=== PATIENT | male | born 1940 | race Caucasian/White ===

== ENCOUNTER 2024-08-15 12:54 | Outpatient (OUT) | payer MEDICARE, OTHER, SELFPAY ==
--- NOTE | 2024-08-14 08:22 | VEINCLINIC_ITS ---
Vital Signs 3 08/15/24 13:14 Height 5 ft 10 in Weight 83.915 kg BMI 26.5 BP 125/64 BP Location Left Brachial BP Position Sitting BP Cuff Size Adult BP Source Automatic Cuff Respiration 16 Pulse 65 Pulse Oximetry (%) 97 Oxygen Delivery Method Room Air Comment The patient's blood pressure is elevated. Varicose Veins Patient is a 83 year old male in this day with a 2 cm non-healing wound medial left lower leg for 6 weeks after injury and presents with swelling and redness in left leg for approximately 3 months. Patient has not been seen by wound care at this time. 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 Unknown if there is family history of varicose vein disease. Patient complains of bilateral leg swelling and pain/numbness left > right for 3 months. Pain is rated a 1 on a scale of 1-10. Tung Martin MD personally performed the services described in this documentation, as scribed by Yaya Melgoza RN in my presence and it is both accurate and complete. Yaya Martin RN, am scribing for, and in the presence of, Dr. Tung Azul and in the presence of the patient. . calf: left aching, intermittent and tender 1 2-3 months Worsened in recent months: Yes walking elevating extremities Reports erythema, limb pain, leg edema and other (numbness/tingling) History of lower extremity trauma: Yes (injury to left lower leg 2-3 months ago) Superficial thrombophlebitis: No Family history of varicose veins: unknown Has patient had previous lower extremity venous surgery: No Patient has previously received the following treatment(s) for lower extremity varicose veins: Reports none Does patient have a history of : not applicable Does patient intend to have future pregnancies: not applicable Has patient had lower extremity venous scan with relux testing: Yes Support hose used: Yes (20 yrs ago) Problems walking or doing physical activity: Yes How does it affect you: Difficult doing daily activities, standing for long periods of time Do you walk much: No Do you stand much: No Medication compliance: fair Review of Systems 2 ROS0 Narrative Tung Martin MD personally performed the services described in this documentation, as scribed by Yaya Melgoza RN in my presence and it is both accurate and complete. I, Yaya Melgoza RN, am scribing for, and in the presence of, Dr. Tung Azul and in the presence of the patient. 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 ?I83.813 - Varicose veins of bilateral lower extremities with pain (ICD-10) Heart disease ?I51.9 - Heart disease, unspecified (ICD-10) Carpal tunnel syndrome ?G56.00 - Carpal tunnel syndrome, unspecified upper limb (ICD-10) Surgical History (Updated 08/15/24 @ 13:22 by Yaya Melgoza) History of carpal tunnel surgery ?Z98.890 - Other specified postprocedural states (ICD-10) Family History (Updated 08/15/24 @ 13:25 by Yaya Melgoza) Father Family history of myocardial infarction Brother Family history of myocardial infarction Social History (Updated 08/15/24 @ 13:25 by Yaya Melgoza) Within the past year, how often did you have a drink containing alcohol: never Score interpretation: A score less than 4 is consistent with normal alcohol consumption. Smoking status: Never smoker Meds Home Medications and Allergies Home Medications ?Medication ?Instructions ?Recorded ?Confirmed ?Type apixaban 5 mg PO BID 08/15/24 08/15/24 History atorvastatin 20 mg tablet (Lipitor) 20 mg PO DAILY 08/15/24 08/15/24 History blood pressure medication 08/15/24 History flecainide 50 mg tablet 50 mg PO Q12H 08/15/24 08/15/24 History Allergies Allergy/AdvReac Type Severity Reaction Status Date / Time No Known Drug Allergies Allergy Verified 08/15/24 13:28 Exam Narrative Exam Narrative: ITung MD personally performed the services described in this documentation, as scribed by Yaya Melgoza RN in my presence and it is both accurate and complete. Yaya Martin RN, am scribing for, and in the presence of, Dr. Tung Azul and in the presence of the patient. Constitutional Documenting provider has reviewed patient's vital signs: yes Common normals: oriented x3 Nutritional appearance: overweight Lymph Lymphatic: no lymphedema noted Cardio Peripheral pulses: posterior tibial pulses present and dorsalis pedis pulses present Extremity Common normals: normal capillary refill General: calf tenderness and edema Right lower extremity: lower leg Right lower leg: inspection and palpation Left lower extremity: lower leg (wound mid/medial lower leg ) Left lower leg: inspection and palpation Extremity image (front): 2 1. non-healing wound Neuro Common normals: oriented x3 Results Additional Findings Additional findings: Bilateral leg reflux u/s reveals bilateral lower extremity venous insufficiency with dilation of bilateral GSV and left leg perforators. Multiple incompetent varicose veins noted. Tung Martin MD personally performed the services described in this documentation, as scribed by Yaya Melgoza RN in my presence and it is both accurate and complete. Yaya Martin RN, am scribing for, and in the presence of, Dr. Tung Azul and in the presence of the patient. 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 Azul created plan for treatment which consists of EVLT bilateral GSV, EVLT left leg perforators, Varithena/microfoam bilateral, continued use of compression stockings, rest/elevation, and increased physical activity. Patient to return for EVLT of left GSV on 08/26/24. Tung Martin MD personally performed the services described in this documentation, as scribed by Yaya Melgoza RN in my presence and it is both accurate and complete. Yaya Martin RN, am scribing for, and in the presence of, Dr. Tung Azul and in the presence of the patient.
--- NOTE | 2024-08-14 08:26 | W.VEIN ---
Discharge Plan Discharge Disposition: Home, Self-Care Print Language: Malawian
--- NOTE | 2024-08-14 08:33 | W.VEIN ---
Discharge Plan Discharge Disposition: Home, Self-Care Outpatient Diagnostics: VC Endovenous Ablation 1VeinLT (Routine) Timeframe: 1 Month Facility: [facility] - Location: Vein Center Ordered By: Tung Azul Follow Up Appointments: 08/26/24 Plan of Treatment: EVLT of left GSV EVLT Tumescent Anesthesia: 500 mL 0.9% NS with 20 mL 1% Lidocaine and 10 mL 8.4% NAHCO3 Buffered Local Anesthesia: 10 mL of 1% Lidocaine Buffered Patient Instructions: Endovenous Ablation (GEN) Print Language: Afghan Discharge Date/Time: 08/15/24 15:33
--- NOTE | 2024-08-15 12:56 | VEIN_ITS ---
Patient Name: JOSE ROCHA MR#: [id number] : 1940 Exam Date: 08/15/2024 Ordering Doctor: DR LUPE PULIDO M.D. RADIOLOGY REPORT PROCEDURE: VC FACILITY EST COMPREHENSIVE [facility]IN [facility] - OFFICE VISIT INITIAL COMPARISON: None. PROGRESS NOTES: [age] year old male who presents with a 3 month history of bilateral leg swelling and redness, with a 6 week history of nonhealing ulcer lateral lower left leg. The patient's left leg symptoms are worse than the right. There has been a progression of symptoms over time. This increases with prolonged leg dependency. The patient describes an improvement with rest and elevation. The patient denies any signs and symptoms to suggest arterial ischemia. The patient describes a family history of heart disease. The patient has drinking and smoking history of : None. Patient has a past medical history significant for : Heart disease, pain due to varicose veins. The patient denies a history of deep venous thrombus or pulmonary embolus. See separate history and physical for medication list. No prior treatment for varicose or spider veins. Prior treatment consisting of use of compression stockings. After review of nurse notes, history and physical exam I discussed at length the pathophysiology of venous hypertension and possible treatments, therapies and strategies available. We discussed at length the importance of elevating the lower extremities above the level of the heart, increased physical activity and compression stocking use. Ultrasound venous reflux study performed today was discussed at length with the patient. The report demonstrates abnormally dilated incompetent right great saphenous vein, left great saphenous vein, and lower left leg incompetent reverser veins adjacent nonhealing ulcer. Associated branch saphenous varicosities bilaterally. PHYSICAL EXAM: The right leg demonstrates several varicosities, scattered spider veins, no ulceration, mild edema, moderate skin discoloration. The left leg demonstrates several varicosities, scattered spider veins, lateral lower leg ulceration, mild edema, moderate-marked skin discoloration. Both thighs, legs and feet were symmetrically warm to the touch. Good posterior tibial and dorsalis pedis pulses were present bilaterally. VEIN/VC Facility EST Comprehensive IMPRESSION: 1. Bilateral lower extremity venous insufficiency 2. Bilateral lower extremity varicose veins 3. Mild bilateral lower extremity subcutaneous edema 4. No flow significant arterial disease 5. CEAP: C6, EP, AP, TN PLAN: 1. Continued use of compression stockings 2. Elevated legs and increased physical activity symptomatic relief 3. Endovenous laser ablation of left great saphenous vein, right great saphenous vein, lower left leg reverser veins. 4. Microfoam chemical ablation of incompetent branch saphenous varicosities bilaterally. Nurse notes, history and physical were reviewed and confirmed, see attached forms. The nurse was present throughout the physical exam and consultation Dictated by: Tung Azul M.D. on 08/15/2024 at 15:09 Approved by: Tung Azul M.D. on 08/15/2024 at 15:16
--- NOTE | 2024-08-15 12:56 | VEIN_ITS ---
Patient Name: JOSE ROCHA MR#: [id number] : 1940 Exam Date: 08/15/2024 Ordering Doctor: DR LUPE PULIDO M.D. RADIOLOGY REPORT PROCEDURE: VC EXT VENOUS REFLUX PATRICIA LMTD COMPARISON: None. INDICATIONS: I83.813 Bilateral painful varicose veins TECHNIQUE: Duplex imaging of the lower extremity to assess the deep and superficial venous system for the presence of deep or superficial venous incompetence and to document the location and severity of disease. The study includes evaluation of the great saphenous vein (GSV), anterior accessory saphenous vein (AASV) and small saphenous vein (SSV). Patient scanned in reverse Trendelenburg and standing. FINDINGS: RIGHT LOWER EXTREMITY: Saphenofemoral Junction Reflux: Yes 5.8mm 1.4 sec GSV: Diam (mm) Reflux/ Time (sec) Proximal Thigh 5.9 Yes 1.7 Mid Thigh 3.8 Yes 0.7 Distal Thigh 3.4 Yes 1.0 Prox Calf 3.4 No Mid Calf 3.8 Yes 0.6 Saphenopopliteal Junction Reflux: 2.9mm Yes 0.9 SSV: Proximal Calf 2.7 Yes 0.9 Mid Calf 3.3 No AASV: Not present Proximal Thigh Mid Thigh Distal Thigh Thrombi: No acute or chronic thrombus visualized Compressibility: Normal Flow: Normal Preforator: Dist/med calf 1.7mm with 1.8s reflux. Tech Note: Incompetent GSV. Patent varicose vein dist/med calf 3.5mm with 1.0s reflux. Patent varicose vein prox/med calf 3.5mm with 0.6s reflux. 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 Tech Note: Incompetent GSV. Patent varicose vein prox/med calf 5.1mm with 1.1s reflux. Patent varicose vein mid/med calf 2.8mm with 0.9s reflux. CONCLUSION: 1. Abnormally dilated and incompetent right and left great saphenous veins. 2. 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 3. Incompetent branch saphenous varicosities bilaterally. Dictated by: Tung Azul M.D. on 08/15/2024 at 14:41 Approved by: Tung Azul M.D. on 08/15/2024 at 15:09
[2024-08-15 13:14] VITALS: BP 125/64; PULSE 65; O2SAT 97; BMI 26.5
== END 2024-08-15 15:33 | disposition home or self-care (01) ==
LOC: VC 12:55
PROVIDERS: Family Provider Family Medicine; PCP Radiology Diagnostic Radiology; Visit Provider Radiology Diagnostic Radiology
DX: I83.813 Varicose veins of bilateral lower extremities with pain (principal)
CPT/HCPCS: 93970; G0463

== ENCOUNTER 2024-08-26 09:56 | Outpatient (OUT) | payer MEDICARE, OTHER, SELFPAY ==
--- NOTE | 2024-08-23 11:02 | VEINCLINIC_ITS ---
Vital Signs 08/26/24 10:10 BP 122/64 BP Location Left Brachial BP Position Sitting BP Cuff Size Adult BP Source Manual Cuff Respiration 18 Pulse 63 Pulse Source Monitor Pulse Oximetry (%) 98 Oxygen Delivery Method Room Air Comment The patient's blood pressure is elevated. Varicose Veins Patient in this day for EVLT of left GSV. Tung Martin MD personally performed the services described in this documentation, as scribed by Ani Diaz RN in my presence and it is both accurate and complete. Ani Martin RN, am scribing for, and in the presence of, Dr. Tung Azul and in the presence of the patient. calf: left aching, intermittent and tender 1 2-3 months Worsened in recent months: Yes walking elevating extremities Reports erythema, limb pain, leg edema and other (numbness/tingling) History of lower extremity trauma: Yes (injury to left lower leg 2-3 months ago) Superficial thrombophlebitis: No Family history of varicose veins: unknown Has patient had previous lower extremity venous surgery: No Patient has previously received the following treatment(s) for lower extremity varicose veins: Reports none Does patient have a history of : not applicable Does patient intend to have future pregnancies: not applicable Has patient had lower extremity venous scan with relux testing: Yes Support hose used: Yes (20 yrs ago) Problems walking or doing physical activity: Yes How does it affect you: Difficult doing daily activities, standing for long periods of time Do you walk much: No Do you stand much: No Medication compliance: fair Review of Systems ROS Narrative Tung Martin MD personally performed the services described in this documentation, as scribed by Ani Diaz RN in my presence and it is both accurate and complete. Ani Martin RN, am scribing for, and in the presence of, Dr. Tung Azul and in the presence of the patient. Status of ROS 10 or more systems reviewed and unremark able except as noted in history and below Cardiovascular Reports: edema Integumentary/Breast Reports: redness, skin pain, skin tenderness, skin swelling, non-healing lesion (mid medial left lower leg) and changes in skin color Neurological Reports: numbness in extremities and weakness in extremities Hematologic/Lymphatic Reports: easy bruising and easy bleeding 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 ?I83.813 - Varicose veins of bilateral lower extremities with pain (ICD-10) Heart disease ?I51.9 - Heart disease, unspecified (ICD-10) Carpal tunnel syndrome ?G56.00 - Carpal tunnel syndrome, unspecified upper limb (ICD-10) Surgical History (Updated 08/15/24 @ 13:22 by Yaya Melgoza) History of carpal tunnel surgery ?Z98.890 - Other specified postprocedural states (ICD-10) Family History (Updated 08/15/24 @ 13:25 by Yaya Melgoza) Father Family history of myocardial infarction Brother Family history of myocardial infarction Social History (Updated 08/15/24 @ 13:25 by Yaya Melgoza) Within the past year, how often did you have a drink containing alcohol: never Score interpretation: A score less than 4 is consistent with normal alcohol consumption. Smoking status: Never smoker Meds Home Medications and Allergies Home Medications ?Medication ?Instructions ?Recorded ?Confirmed ?Type apixaban 5 mg PO BID 08/15/24 08/15/24 History atorvastatin 20 mg tablet (Lipitor) 20 mg PO DAILY 08/15/24 08/15/24 History blood pressure medication 08/15/24 History flecainide 50 mg tablet 50 mg PO Q12H 08/15/24 08/15/24 History Allergies Allergy/AdvReac Type Severity Reaction Status Date / Time No Known Drug Allergies Allergy Verified 08/15/24 13:28 Exam Narrative Exam Narrative: ITung MD personally performed the services described in this documentation, as scribed by Ani Diaz RN in my presence and it is both accurate and complete. IAni RN, am scribing for, and in the presence of, Dr. Tung Azul and in the presence of the patient. Constitutional Documenting provider has reviewed patient's vital signs: yes Common normals: oriented x3 Nutritional appearance: overweight Lymph Lymphatic: no lymphedema noted Cardio Peripheral pulses: posterior tibial pulses present and dorsalis pedis pulses present Extremity Common normals: normal capillary refill General: calf tenderness and edema Right lower extremity: lower leg Right lower leg: inspection and palpation Left lower extremity: lower leg (wound mid/medial lower leg ) Left lower leg: inspection and palpation Neuro Common normals: oriented x3 Assessment and Plan Assessment and Plan (1) 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 The patient verbalizes understanding and states they will comply.? Patient was given post-pr ocedure instructions. Patient was discharged in good condition.? Scheduled to undergo follow-up evaluation on? 09/03/24. ITung MD personally performed the services described in this documentation, as scribed by Ani Diaz RN in my presence and it is both accurate and complete. IAni RN, am scribing for, and in the presence of, Dr. Tung Azul and in the presence of the patient. Procedures Procedure Instructions Procedures Plan of care: Risks and benefits of the procedure were discussed at length and informed written consent was obtained.? Time-out completed for verification of correct patient, procedure and site.? Staff present during time-out: Ani Diaz RN,? Tung Azul MD, Ailyn Mancia [facility]. Time Out Time___1039____ Patient prepped and procedure performed in usual sterile fashion. Risk of injury related to use of Diode laser and/or laser devices? __AG___ ? Serial number of laser used :? [id number] Control panel self test performed, electrical cords in good condition, floor is dry, basin of water available, fire extinguisher in close proximity_AG__ Polycarbonate goggles available and Laser warning signs outside of doors___AG___ Eye protection provided to patient and staff in room_AG___ Use of laser retardant drapes and dull blackened instruments as directed__AG___ Use of nonflammable prep solutions and use of saline soaked sponges to protect tissues as indicated _AG___ Length ____70____ cm Laser operated by ____Dr. Azul Physician verbal confirmation laser locked in place__AG__ Laser start time (date and time) _08/26/24@1053 Laser stop time(date and time) __08/26/24@1103 Buck _8.0___ Average laser use ____3666___Joules Average laser use____458____seconds Pulse continuous ___AG_? Pulse intermittent ___ Amount of Tumescent used ___300___ Evaluated patient for signs and symptoms of electrical injury __AG___ ? Skin clear at insertion site __AG___ Patient tolerated procedure well.? Left leg Coban dressing applied to access site.? Applied Left thigh high leg compression stocking. Will return on 09/03/24 for Left leg limited venous ultrasound and exam. ITung MD personally performed the services described in this documentation, as scribed by Ani Diaz RN in my presence and it is both accurate and complete. I, Ani Diaz RN, am scribing for, and in the presence of, Dr. Tung Azul and in the presence of the patient.
--- NOTE | 2024-08-23 11:04 | W.VEIN ---
Discharge Plan Discharge Disposition: Home, Self-Care Outpatient Diagnostics: VC Facility EST LMTD (Routine) Timeframe: 2 Weeks Facility: [facility] - Location: Vein Center Ordered By: Tung Azul VC EXT Venous LT Limited (Routine) Timeframe: 2 Weeks Facility: [facility] - Location: Vein Center Ordered By: Tung Azul Follow Up Appointments: 09/03/24 Plan of Treatment: u/s follow up following evlt of left GSV on 08/26/24 Patient Instructions: Endovenous Ablation (DC) Print Language: Surinamese Discharge Date/Time: 08/26/24 11:23
--- NOTE | 2024-08-26 09:58 | VEIN_ITS ---
[address] [address] Patient Name: JOSE ROCHA MRN: [id number] date: 1940 Sex: M Assigned Patient Location: Current Patient Location: Accession/Order Number: [id number] Exam Date: 08/26/2024 10:03 Report Date: 08/26/2024 15:57 At the request of: DEBORAH MADRID Procedure: VC Endovenous Ablation 1VeinLT EXAMINATION: VC Endovenous Ablation 1VeinLT HISTORY: I83.813 - Varicose veins of bilateral lower extremities w... The risks and benefits of the procedure had been previously discussed, and were rediscussed at length. Informed written consent was obtained. Ani Diaz RN and Ailyn Newman RDMS assisted. Time out procedure was performed. The left lower extremity was prepared and draped in the usual sterile fashion to allow knee flexion in the sterile field. Duplex ultrasound probe was draped in a sterile cover, sterile transmission gel was used. Venous mapping was performed with the areas of dilation and large tributaries marked. The total length was 70 cm from the entry 3 cm above the ankle to 3 cm below the Saphenofemoral junction. The diameter of the left great saphenous vein ranged from 5.6 mm. A 30 gauge needle and 1% buffered lidocaine was used to anesthetize the entry site. A 4 mm incision was made with a scalpel and the saphenous vein was entered percutaneously under direct ultrasound guidance with a micropuncture set, a single stick was successful in gaining access. A micro-guide wire was inserted and the needle removed. A micro-set including a dilator was inserted over the microwire and the needle and dilator were removed. A guide wire was inserted through the micro-set and guided through the saphenous vein to the saphenofemoral junction. The dilator was removed and an introducer sheath was inserted over the wire until the end of the sheath entered the saphenofemoral junction. The dilator and wire were removed and the 600 micron fiber was introduced and placed and positioned so that it extended beyond the sheath and was 3 cm distal to the saphenofemoral or saphenopopliteal junction. Final position of the fiber was determined by ultrasound guidance and duplex imaging. Tumescent anesthetic was delivered by ultrasound guidance. 300 cc of fluid was delivered along the entire course of the saphenous vein. The solution consisted of 1000 cc of normal saline with 40 mL of 1% lidocaine and 20 mL of sodium bicarbonate. A final positioning check was made. The energy source was turned on by means of the foot pedal and the fiber and sheath were withdrawn. The total number of Joules delivered was 3666. The laser was active for 458 seconds under continuous pulse, average laser use of 8 J. Laser start time: 10:53 AM Laser stop time: 11:03 AM Date: 08/26/2024. A duplex ultrasound revealed compressibility and flow at the saphenofemoral junction immediately after the procedure. Hemostasis at the access site was achieved. The skin incision of the saphenous vein was closed with a 4 x 4. A compression stocking was applied. Postop instructions were given. A follow up appointment was recommended and scheduled. The patient tolerated the procedure well. Electronically authenticated by: DEBORAH MADRID Date: 08/26/2024 15:57
[2024-08-26 10:10] VITALS: BP 122/64; PULSE 63; O2SAT 98
[2024-08-26] MEDS: LIDOCAINE HCL 1% 100 MG/10 ML MDV INJ (10:37)
[2024-08-26] MEDS: 0.9 % SODIUM CHLORIDE 500 ML, LIDOCAINE HCL 20 ML, SODIUM BICARBONATE 10 MEQ INJ (10:37)
== END 2024-08-26 11:23 | disposition home or self-care (01) ==
LOC: VC 09:57
PROVIDERS: Family Provider Family Medicine; PCP Radiology Diagnostic Radiology; Visit Provider Radiology Diagnostic Radiology
DX: I83.813 Varicose veins of bilateral lower extremities with pain (principal)
CPT/HCPCS: 36478

== ENCOUNTER 2024-09-03 14:19 | Outpatient (OUT) | payer MEDICARE, OTHER, SELFPAY ==
--- NOTE | 2024-09-03 14:20 | VEIN_ITS ---
Patient Name: JOSE ROCHA MR#: [id number] : 1940 Exam Date: 09/03/2024 Ordering Doctor: DR DEBORAH MADRID M.D. RADIOLOGY REPORT PROCEDURE: VC EXT VENOUS LT LIMITED COMPARISON: None. INDICATIONS: I80.02 - Phlebitis and thrombophlebitis of superficial ve... TECHNIQUE: Lower extremity cui scale and Duplex Doppler evaluation of the deep venous system from the inguinal ligament through the calf veins. FINDINGS: REGION: Left lower extremity. THROMBI: Negative for DVT. Heat induce thrombus visualize 1.5 cm from the SFJ. The heat induced thrombus extends from groin to mid calf. 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
--- NOTE | 2024-09-03 14:20 | VEIN_ITS ---
Patient Name: JOSE ROCHA MR#: [id number] : 1940 Exam Date: 09/03/2024 Ordering Doctor: DR DEBORAH MADRID M.D. RADIOLOGY REPORT PROCEDURE: FACILITY EST [facility]D [facility] - OFFICE VISIT FOLLOW UP COMPARISON: None. PROGRESS NOTES: The patient reports no significant problems following intravenous laser ablation left great saphenous vein. The patient does complain is compression stocking as to type. Patient did wear her compression stocking as directed. Physical exam demonstrates no erythema or warmth to suggest cellulitis or thrombophlebitis. Thrombosed left great saphenous vein can be partially palpated period to healing ulcerations are noted along the anterior left lower leg which the patient thinks are related to trauma. Review of the ultrasound performed the same day demonstrates occlusive thrombus extending throughout the treated right great saphenous vein. Heat induced thrombus is 1.5 cm from the saphenofemoral junction. No deep vein thrombus. The patient expressed a desire to proceed with treatment of incompetent right great saphenous vein. VEIN/ Facility EST LMTD IMPRESSION: 1. Successful ablation of the left great saphenous vein(s). 2. Persistent incompetent right great saphenous vein. PLAN: Intravenous laser ablation right great saphenous vein Nurse notes, history and physical were reviewed and confirmed, see attached forms. The nurse was present throughout the physical exam and consultation Dictated by: Ton Toledo MD on 09/03/2024 at 14:54 Approved by: Ton Toledo MD on 09/03/2024 at 14:56
--- NOTE | 2024-09-03 14:43 | V.VEINS.HP ---
Varicose Veins Patient in this day for follow up ultrasound post EVLT of left GSV. Ton Martin MD personally performed the services described in this documentation, as scribed by Stacie Potter RVT, RDMS in my presence and it is both accurate and complete. Stacie Martin RVT, RDMS, am scribing for, and in the presence of, Dr. Ton Toledo and in the presence of the patient. calf: left aching, intermittent and tender 1 2-3 months Worsened in recent months: Yes walking elevating extremities Reports erythema, limb pain, leg edema and other (numbness/tingling) History of lower extremity trauma: Yes (injury to left lower leg 2-3 months ago) Superficial thrombophlebitis: No Family history of varicose veins: unknown Has patient had previous lower extremity venous surgery: No Patient has previously received the following treatment(s) for lower extremity varicose veins: Reports none Does patient have a history of : not applicable Does patient intend to have future pregnancies: not applicable Has patient had lower extremity venous scan with relux testing: Yes Support hose used: Yes (20 yrs ago) Problems walking or doing physical activity: Yes How does it affect you: Difficult doing daily activities, standing for long periods of time Do you walk much: No Do you stand much: No Medication compliance: fair Review of Systems ROS Narrative Ton Martin MD personally performed the services described in this documentation, as scribed by Stacie Potter RVT, RDMS in my presence and it is both accurate and complete. Stacie Martin RVT, RDMS, am scribing for, and in the presence of, Dr. Ton Toledo and in the presence of the patient. Status of ROS 10 or more systems reviewed and unremarkable except as noted in history and below Cardiovascular Reports: edema Integumentary/Breast Reports: redness, skin pain, skin tenderness, skin swelling, non-healing lesion (mid medial left lower leg) and changes in skin color Neurological Reports: numbness in extremities and weakness in extremities Hematologic/Lymphatic Reports: easy bruising and easy bleeding [facility] Medical History (Updated 08/23/24 @ 11:04 by Ani Diaz RN) Phlebitis and thrombophlebitis of superficial vessels of left lower extremity ?I80.02 - Phlebitis and thrombophlebitis of superficial vessels of left lower extremity (ICD-10) 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 ?I83.813 - Varicose veins of bilateral lower extremities with pain (ICD-10) Heart disease ?I51.9 - Heart disease, unspecified (ICD-10) Carpal tunnel syndrome ?G56.00 - Carpal tunnel syndrome, unspecified upper limb (ICD-10) Surgical History (Updated 08/15/24 @ 13:22 by Yaya Melgoza) History of carpal tunnel surgery ?Z98.890 - Other specified postprocedural states (ICD-10) Family History (Updated 08/15/24 @ 13:25 by Yaya Melgoza) Father Family history of myocardial infarction Brother Family history of myocardial infarction Social History (Updated 08/15/24 @ 13:25 by Yaya Melgoza) Within the past year, how often did you have a drink containing alcohol: never Score interpretation: A score less than 4 is consistent with normal alcohol consumption. Smoking status: Never smoker Meds Home Medications and Allergies Home Medications ?Medication ?Instructions ?Recorded ?Confirmed ?Type apixaban 5 mg PO BID 08/15/24 08/15/24 History atorvastatin 20 mg tablet (Lipitor) 20 mg PO DAILY 08/15/24 08/15/24 History blood pressure medication 08/15/24 History flecainide 50 mg tablet 50 mg PO Q12H 08/15/24 08/15/24 History Allergies Allergy/AdvReac Type Severity Reaction Status Date / Time No Known Drug Allergies Allergy Verified 08/15/24 13:28 Exam Narrative Exam Narrative: Ton Martin MD personally performed the services described in this documentation, as scribed by Stacie Potter RVT, RDMS in my presence and it is both accurate and complete. Stacie Martin RVT, RDMS, am scribing for, and in the presence of, Dr. Ton Toledo and in the presence of the patient. Constitutional Documenting provider has reviewed patient's vital signs: yes Common normals: oriented x3 Nutritional appearance: overweight Lymph Lymphatic: no lymphedema noted Cardio Peripheral pulses: posterior tibial pulses present and dorsalis pedis pulses present Extremity Common normals: normal capillary refill General: calf tenderness and edema Right lower extremity: lower leg Right lower leg: inspection and palpation Left lower extremity: lower leg (wound mid/medial lower leg ) Left lower leg: inspection and palpation Neuro Common normals: oriented x3 Results Imaging Venous US: Radiologist's impression: The ultrasound demonstrates Heat induce thrombus visualize 1.5 cm from the SFJ. The heat induced thrombus extends from groin to mid calf. Assessment and Plan Assessment and Plan (1) Phlebitis and thrombophlebitis of superficial vessels of left lower extremity: Plan Patient in today for follow up ultrasound of lower extremity following treatment of EVLT of left leg GSv completed on 08/26/24. ITon MD personally performed the services described in this documentation, as scribed by Stacie Potter RVT, RDMS in my presence and it is both accurate and complete. IStacie RVT, RDMS, am scribing for, and in the presence of, Dr. Ton Toledo and in the presence of the patient.
--- NOTE | 2024-09-03 14:45 | W.VEIN ---
Discharge Plan Discharge Disposition: Home, Self-Care Outpatient Diagnostics: VC Endovenous Ablation 1VeinRT (Routine) Timeframe: 2 Weeks Facility: [facility] - Location: Vein Center Ordered By: Ton Toledo Follow Up Appointments: 09/11/24 Plan of Treatment: EVLT of right leg GSV Print Language: Albanian Discharge Date/Time: 09/03/24 14:57
== END 2024-09-03 14:57 | disposition home or self-care (01) ==
PROVIDERS: Family Provider Family Medicine; PCP Radiology Diagnostic Radiology; Visit Provider Radiology Diagnostic Radiology
DX: I80.02 Phlebitis and thrombophlebitis of superficial vessels of left lower extremity (principal)
CPT/HCPCS: 93971; G0463

== ENCOUNTER 2024-09-11 14:00 | Outpatient (OUT) | payer MEDICARE, OTHER, SELFPAY ==
--- NOTE | 2024-09-10 16:09 | VEINCLINIC_ITS ---
Vital Signs 09/11/24 14:08 BP 106/55 BP Location Left Brachial BP Position Sitting BP Cuff Size Adult BP Source Automatic Cuff Respiration 16 Pulse 68 Pulse Source Monitor Pulse Oximetry (%) 99 Oxygen Delivery Method Room Air Varicose Veins Patient in this day for EVLT of right GSV Ton Martin MD personally performed the services described in this documentation, as scribed by Yaya Melgoza RN in my presence and it is both accurate and complete. Yaya Martin RN, am scribing for, and in the presence of, Dr. Ton Toledo and in the presence of the patient. calf: left aching, intermittent and tender 1 2-3 months Worsened in recent months: Yes walking elevating extremities Reports erythema, limb pain, leg edema and other (numbness/tingling) History of lower extremity trauma: Yes (injury to left lower leg 2-3 months ago) Superficial thrombophlebitis: No Family history of varicose veins: unknown Has patient had previous lower extremity venous surgery: No Patient has previously received the following treatment(s) for lower extremity varicose veins: Reports none Does patient have a history of : not applicable Does patient intend to have future pregnancies: not applicable Has patient had lower extremity venous scan with relux testing: Yes Support hose used: Yes (20 yrs ago) Problems walking or doing physical activity: Yes How does it affect you: Difficult doing daily activities, standing for long periods of time Do you walk much: No Do you stand much: No Medication compliance: fair Review of Systems ROS Narrative Ton Martin MD personally performed the services described in this documentation, as scribed by Yaya Melgoza RN in my presence and it is both accurate and complete. Yaya Martin RN, am scribing for, and in the presence of, Dr. Ton Toledo and in the presence of the patient. Status of ROS 10 or more systems reviewed and unremark able except as noted in history and below Cardiovascular Reports: edema Integumentary/Breast Reports: redness, skin pain, skin tenderness, skin swelling, non-healing lesion (mid medial left lower leg) and changes in skin color Neurological Reports: numbness in extremities and weakness in extremities Hematologic/Lymphatic Reports: easy bruising and easy bleeding [facility] Medical History (Updated 09/11/24 @ 15:22 by Yaya Melgoza) Phlebitis of superficial vein of right lower extremity ?I80.01 - Phlebitis and thrombophlebitis of superficial vessels of right lower extremity (ICD-10) Phlebitis and thrombophlebitis of superficial vessels of left lower extremity ?I80.02 - Phlebitis and thrombophlebitis of superficial vessels of left lower extremity (ICD-10) 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 ?I83.813 - Varicose veins of bilateral lower extremities with pain (ICD-10) Heart disease ?I51.9 - Heart disease, unspecified (ICD-10) Carpal tunnel syndrome ?G56.00 - Carpal tunnel syndrome, unspecified upper limb (ICD-10) Surgical History (Updated 09/11/24 @ 14:37 by Yaya Melgoza) Status post laser ablation of incompetent vein ?Z98.890 - Other specified postprocedural states (ICD-10) History of carpal tunnel surgery ?Z98.890 - Other specified postprocedural states (ICD-10) Family History (Updated 08/15/24 @ 13:25 by Yaya Melgoza) Father Family history of myocardial infarction Brother Family history of myocardial infarction Social History (Updated 08/15/24 @ 13:25 by Yaya Melgoza) Within the past year, how often did you have a drink containing alcohol: never Score interpretation: A score less than 4 is consistent with normal alcohol consumption. Smoking status: Never smoker Meds Home Medications and Allergies Home Medications ?Medication ?Instructions ?Recorded ?Confirmed ?Type apixaban 5 mg PO BID 08/15/24 08/15/24 History atorvastatin 20 mg tablet (Lipitor) 20 mg PO DAILY 08/15/24 08/15/24 History blood pressure medication 08/15/24 History flecainide 50 mg tablet 50 mg PO Q12H 08/15/24 08/15/24 History Allergies Allergy/AdvReac Type Severity Reaction Status Date / Time No Known Drug Allergies Allergy Verified 08/15/24 13:28 Exam Narrative Exam Narrative: ITon MD personally performed the services described in this documentation, as scribed by Yaya Melgoza RN in my presence and it is both accurate and complete. IYaya RN, am scribing for, and in the presence of, Dr. Ton Toledo and in the presence of the patient. Constitutional Documenting provider has reviewed patient's vital signs: yes Common normals: oriented x3 Nutritional appearance: overweight Lymph Lymphatic: no lymphedema noted Cardio Peripheral pulses: posterior tibial pulses present and dorsalis pedis pulses present Extremity Common normals: normal capillary refill General: calf tenderness and edema Right lower extremity: lower leg Right lower leg: inspection and palpation Left lower extremity: lower leg (wound mid/medial lower leg ) Left lower leg: inspection and palpation Neuro Common normals: oriented x3 Assessment and Plan Assessment and Plan (1) 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: Plan f/u evaluation with physician along with right leg limited u/s Ton Martin MD personally performed the services described in this documentation, as scribed by Yaya Melgoza RN in my presence and it is both accurate and complete. IYaya RN, am scribing for, and in the presence of, Dr. Ton Toledo and in the presence of the patient. Procedures Procedure Instructions Procedures Plan of care: Risks and benefits of the procedure were discussed at length and informed written consent was obtained.? Time-out completed for verification of correct patient, procedure and site.? Staff present during time-out: Yaya Melgoza RN,? Ton Toledo MD, [facility]. Time Out Time_1432 Patient prepped and procedure performed in usual sterile fashion. Risk of injury related to use of Diode laser and/or laser devices__CR___ ? Serial number of laser used :? [id number] Control panel self test performed, electrical cords in good condition, floor is dry, basin of water available, fire extinguisher in close proximity_CR__ Polycarbonate goggles available and Laser warning signs outside of doors___CR__ Eye protection provided to patient and staff in room_CR___ Use of laser retardant drapes and dull blackened instruments as directed__CR___ Use of nonflammable prep solutions and use of saline soaked sponges to protect tissues as indicated _CR___ Length __30cm cm Laser operated by _Dr. Toledo Physician verbal confirmation laser locked in place__CR__ Laser start time (date and time) __09/10/2024@_1442 Laser stop time(date and time) _09/10/2024@_1446 Buck _8.0___ Average laser use __1526 Joules Average laser use____191____seconds Pulse continuous ___CR_? Pulse intermittent ___ Amount of Tumescent used _200cc Evaluated patient for signs and symptoms of electrical injury __CR___ ? Skin clear at insertion site __CR___ Patient tolerated procedure well.? Right leg Coban dressing applied to access site.? Applied Right thigh high leg compression stocking. Will return on 09/16/2024 for right leg limited venous ultrasound and exam. ITon MD personally performed the services described in this documentation, as scribed by Yaya Melgoza RN in my presence and it is both accurate and complete. I, Yaya Melgoza RN, am scribing for, and in the presence of, Dr. Ton Toledo and in the presence of the patient.
--- NOTE | 2024-09-10 16:13 | P.DS_ITS ---
Discharge Plan Discharge Disposition: Home, Self-Care Outpatient Diagnostics: VC Facility EST LMTD (Routine) Timeframe: 2 Weeks Facility: [facility] - Location: Vein Center Ordered By: Ton Toledo VC EXT Venous RT LMTD (Routine) Timeframe: 2 Weeks Facility: [facility] - Location: Vein Center Ordered By: Ton Toledo Follow Up Appointments: 09/16/2024 Plan of Treatment: f/u evaluation with physician along with left leg limted u/s Patient Instructions: Endovenous Ablation (DC) Print Language: Belgian Discharge Date/Time: 09/11/24 15:22
--- NOTE | 2024-09-11 14:01 | VEIN_ITS ---
[address] [address] Patient Name: JOSE ROCHA MRN: [id number] date: 1940 Sex: M Assigned Patient Location: Current Patient Location: Accession/Order Number: [id number] Exam Date: 09/11/2024 14:01 Report Date: 09/11/2024 15:49 At the request of: LUPE PULIDO Procedure: VC Endovenous Ablation 1VeinRT EXAMINATION: VC Endovenous Ablation 1VeinRT HISTORY: I83.813 - Varicose veins of bilateral lower extremities w... COMPARISON: No relevant comparison available. TECHNIQUE: The risks and benefits of the procedure had been previously discussed, and were rediscussed at length. Informed written consent was obtained. Janel Bazan and Yaya Melgoza assisted. Time out procedure was performed. The right lower extremity was prepared and draped in the usual sterile fashion to allow knee flexion in the sterile field. Duplex ultrasound probe was draped in a sterile cover, sterile transmission gel was used. Venous mapping was performed with the areas of dilation and large tributaries marked. The total length was 30 cm from the entry at the level of the knee to 3 cm below the saphenofemoral junction. The diameter of the greater saphenous vein ranged from 6 mm. A 30 gauge needle and 1% buffered lidocaine was used to anesthetize the entry site. A 4 mm incision was made with a scalpel and the saphenous vein was entered percutaneously under direct ultrasound guidance with a micropuncture set, a single stick was successful in gaining access. A micro-guide wire was inserted and the needle removed. A micro-set including a dilator was inserted over the microwire and the needle and dilator were removed. A 0.018 guide wire was inserted through the micro-set and threaded through the saphenous vein to the saphenofemoral junction. The dilator was removed and an introducer sheath was inserted over the wire until the end of the sheath entered the saphenofemoral junction. The dilator and wire were removed and the 600 micron fiber was introduced and placed and positioned so that it extended beyond the sheath and was 3 cm peripheral to the saphenofemoral femoral junction. Final position of the fiber was determined by ultrasound guidance and duplex imaging. Tumescent anesthetic was delivered by ultrasound guidance. 200 cc of fluid was delivered along the entire course of the saphenous vein. The solution consisted of 1000 cc of normal saline with 40 mL of 1% lidocaine and 20 mL of sodium bicarbonate. A final positioning check was made. The energy source was turned on by means of the foot pedal and the fiber and sheath were withdrawn. The total number of Joules delivered was 1526. The laser was active for 191 seconds under continuous pulse, average laser use of 8 J. Laser start time 14:42 09/11/24 . Laser stop time 14:46 09/11/24 . A duplex ultrasound revealed compressibility and flow at the saphenofemoral junction immediately after the procedure. Hemostasis at the access site was achieved. The skin incision of the saphenous vein was closed with a 4 x 4. A compression stocking was applied. Postop instructions were given. A follow up appointment was recommended and scheduled. The patient tolerated the procedure well and was discharged in good condition . VEIN/VC Endovenous Ablation 1VeinRT IMPRESSION: Technically successful endovenous laser ablation right great saphenous vein Electronically authenticated by: LUPE PULIDO Date: 09/11/2024 15:49
[2024-09-11 14:08] VITALS: BP 106/55; PULSE 68; O2SAT 99
[2024-09-11] MEDS: 0.9 % SODIUM CHLORIDE 500 ML, LIDOCAINE HCL 20 ML, SODIUM BICARBONATE 10 MEQ INJ (14:20)
[2024-09-11] MEDS: LIDOCAINE HCL 1% 100 MG/10 ML MDV INJ (14:20)
== END 2024-09-11 15:22 | disposition home or self-care (01) ==
LOC: VC 14:00
PROVIDERS: Family Provider Family Medicine; PCP Radiology Diagnostic Radiology; Visit Provider Radiology Diagnostic Radiology
DX: I83.813 Varicose veins of bilateral lower extremities with pain (principal)
CPT/HCPCS: 36478

== ENCOUNTER 2024-09-16 14:31 | Outpatient (OUT) | payer MEDICARE, OTHER, SELFPAY ==
[2024-09-16 07:38] VITALS: BMI 26.5
--- NOTE | 2024-09-16 07:38 | V.VEINS.HP ---
Vital Signs 09/16/24 07:38 Height 5 ft 10 in Weight 83.9 kg BMI 26.5 Varicose Veins Patient in today for follow up ultrasound of lower extremity following treatment of Varithena/microfoam completed on I, Ton Toledo MD personally performed the services described in this documentation, as scribed by Ailyn Mancia RDMS in my presence and it is both accurate and complete. IAilyn RDMS, am scribing for, and in the presence of, Dr. Ton Toledo and in the presence of the patient. calf: left aching, intermittent and tender 1 2-3 months Worsened in recent months: Yes walking elevating extremities Reports erythema, limb pain, leg edema and other (numbness/tingling) History of lower extremity trauma: Yes (injury to left lower leg 2-3 months ago) Superficial thrombophlebitis: No Family history of varicose veins: unknown Has patient had previous lower extremity venous surgery: No Patient has previously received the following treatment(s) for lower extremity varicose veins: Reports none Does patient have a history of : not applicable Does patient intend to have future pregnancies: not applicable Has patient had lower extremity venous scan with relux testing: Yes Support hose used: Yes (20 yrs ago) Problems walking or doing physical activity: Yes How does it affect you: Difficult doing daily activities, standing for long periods of time Do you walk much: No Do you stand much: No Medication compliance: fair Review of Systems ROS Narrative I, Ton Toledo MD personally performed the services described in this documentation, as scribed by Yaya Melgoza RN in my presence and it is both accurate and complete. Yaya Martin RN, am scribing for, and in the presence of, Dr. Ton Toledo and in the presence of the patient. Status of ROS 10 or more systems reviewed and unremarkable except as noted in history and below Cardiovascular Reports: edema Integumentary/Breast Reports: redness, skin pain, skin tenderness, skin swelling, non-healing lesion (mid medial left lower leg) and changes in skin color Neurological Reports: numbness in extremities and weakness in extremities Hematologic/Lymphatic Reports: easy bruising and easy bleeding PFSH [facility] Medical History (Updated 09/11/24 @ 15:22 by Yaya Melgoza) Phlebitis of superficial vein of right lower extremity ?I80.01 - Phlebitis and thrombophlebitis of superficial vessels of right lower extremity (ICD-10) Phlebitis and thrombophlebitis of superficial vessels of left lower extremity ?I80.02 - Phlebitis and thrombophlebitis of superficial vessels of left lower extremity (ICD-10) 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 ?I83.813 - Varicose veins of bilateral lower extremities with pain (ICD-10) Heart disease ?I51.9 - Heart disease, unspecified (ICD-10) Carpal tunnel syndrome ?G56.00 - Carpal tunnel syndrome, unspecified upper limb (ICD-10) Surgical History (Updated 09/11/24 @ 14:37 by Yaya Melgoza) Status post laser ablation of incompetent vein ?Z98.890 - Other specified postprocedural states (ICD-10) History of carpal tunnel surgery ?Z98.890 - Other specified postprocedural states (ICD-10) Family History (Updated 08/15/24 @ 13:25 by Yaya Melgoza) Father Family history of myocardial infarction Brother Family history of myocardial infarction Social History (Updated 08/15/24 @ 13:25 by Yaya Melgoza) Within the past year, how often did you have a drink containing alcohol: never Score interpretation: A score less than 4 is consistent with normal alcohol consumption. Smoking status: Never smoker Meds Home Medications and Allergies Home Medications ?Medication ?Instructions ?Recorded ?Confirmed ?Type apixaban 5 mg PO BID 08/15/24 08/15/24 History atorvastatin 20 mg tablet (Lipitor) 20 mg PO DAILY 08/15/24 08/15/24 History blood pressure medication 08/15/24 History flecainide 50 mg tablet 50 mg PO Q12H 08/15/24 08/15/24 History Allergies Allergy/AdvReac Type Severity Reaction Status Date / Time No Known Drug Allergies Allergy Verified 08/15/24 13:28 Exam Narrative Exam Narrative: ITon MD personally performed the services described in this documentation, as scribed by Yaya Melgoza RN in my presence and it is both accurate and complete. IYaya RN, am scribing for, and in the presence of, Dr. Ton Toledo and in the presence of the patient. Constitutional Documenting provider has reviewed patient's vital signs: yes Common normals: oriented x3 Nutritional appearance: overweight Lymph Lymphatic: no lymphedema noted Cardio Peripheral pulses: posterior tibial pulses present and dorsalis pedis pulses present Extremity Common normals: normal capillary refill General: calf tenderness and edema Right lower extremity: lower leg Right lower leg: inspection and palpation Left lower extremity: lower leg (wound mid/medial lower leg ) Left lower leg: inspection and palpation Neuro Common normals: oriented x3 Results Imaging Venous US: Radiologist's impression: Heat induced thrombus in right GSV Ton Martin MD personally performed the services described in this documentation, as scribed by Ailyn Mancia RDMS in my presence and it is both accurate and complete. Mario, Ailyn Mancia RDMS, am scribing for, and in the presence of, Dr. Ton Toledo and in the presence of the patient. Assessment and Plan Assessment and Plan (1) Phlebitis of superficial vein of right lower extremity: Plan Plan is for patient to return for Varithena left leg on 09/19/24. Ton Martin MD personally performed the services described in this documentation, as scribed by Ailyn Mancia RDMS in my presence and it is both accurate and complete. Ailyn Martin RDMS, am scribing for, and in the presence of, Dr. Ton Toledo and in the presence of the patient.
--- NOTE | 2024-09-16 14:32 | VEIN_ITS ---
Patient Name: JOSE ROCHA MR#: [id number] : 1940 Exam Date: 09/16/2024 Ordering Doctor: DR TON TOLEDO M.D. RADIOLOGY REPORT PROCEDURE: VC EXT VENOUS RT LMTD COMPARISON: None. INDICATIONS: I80.01 - Phlebitis and thrombophlebitis of superficial veins right leg TECHNIQUE: Lower extremity cui scale and Duplex Doppler evaluation of the deep venous system from the inguinal ligament through the calf veins. FINDINGS: REGION: Right lower extremity. THROMBI: Negative for DVT. Heat induced thrombus in right GSV 4.2 cm from SFJ and extends to distal thigh. COMPRESSIBILITY: Non-compressible segments corresponding to thrombus FLOW: Areas of no flow corresponding to thrombus CONCLUSION: Post ablation occlusion of the treated right great saphenous vein with heat induced thrombus 4.2 cm from the saphenofemoral junction Dictated by: Ton Toledo MD on 09/16/2024 at 14:46 Approved by: Ton Toledo MD on 09/16/2024 at 14:46
--- NOTE | 2024-09-16 14:32 | VEIN_ITS ---
Patient Name: JOSE ROCHA MR#: [id number] : 1940 Exam Date: 09/16/2024 Ordering Doctor: DR TON TOLEDO M.D. RADIOLOGY REPORT PROCEDURE: [facility] EST LMTD [facility] - OFFICE VISIT FOLLOW UP COMPARISON: [facility], 09/03/2024. PROGRESS NOTES: The patient reports no problems following intravenous laser ablation of the right great saphenous vein. The patient has worn his compression stocking. The patient has not required oral analgesics. Physical exam demonstrates the incision to be sealed. No bruising. Thrombosed right great saphenous vein can be partially palpated. No erythema or warmth to suggest cellulitis or thrombophlebitis. No active ulceration Review of the ultrasound performed the same day demonstrates occlusive thrombus extending throughout the treated right great saphenous vein. No deep vein thrombus. The patient expressed a desire to proceed with treatment of incompetent varicose veins with micro foam chemical ablation. [facility]: 1. Successful ablation of the right great saphenous vein 2. Persistent bilateral incompetent varicose vein. PLAN: Micro foam chemical ablation left leg incompetent varicose veins Nurse notes, history and physical were reviewed and confirmed, see attached forms. The nurse was present throughout the physical exam and consultation Dictated by: Ton Toledo MD on 09/16/2024 at 16:21 Approved by: Ton Toledo MD on 09/16/2024 at 16:22
--- NOTE | 2024-09-16 14:59 | P.DS_ITS ---
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 Print Language: Tamazight Discharge Date/Time: 09/16/24 15:00
--- NOTE | 2024-09-16 14:59 | W.VEIN ---
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 Print Language: Turkish Discharge Date/Time: 09/16/24 15:00
== END 2024-09-16 15:00 | disposition home or self-care (01) ==
PROVIDERS: Family Provider Family Medicine; PCP Radiology Diagnostic Radiology; Visit Provider Radiology Diagnostic Radiology
DX: I80.01 Phlebitis and thrombophlebitis of superficial vessels of right lower extremity (principal)
CPT/HCPCS: 93971; G0463

== ENCOUNTER 2024-09-19 10:11 | Outpatient (OUT) | payer MEDICARE, OTHER, SELFPAY ==
--- NOTE | 2024-09-17 13:02 | VEINCLINIC_ITS ---
Vital Signs 09/19/24 10:26 BP 110/64 BP Location Left Brachial BP Position Sitting BP Cuff Size Adult BP Source Manual Cuff Respiration 18 Pulse 65 Pulse Source Monitor Pulse Oximetry (%) 97 Oxygen Delivery Method Room Air Varicose Veins Patient in today for Varithena/microfoam chemical ablation left leg. Ton Martin MD personally performed the services described in this documentation, as scribed by Ani Diaz RN in my presence and it is both accurate and complete. Ani Martin RN, am scribing for, and in the presence of, Dr. Ton Toledo and in the presence of the patient. calf: left aching, intermittent and tender 1 2-3 months Worsened in recent months: Yes walking elevating extremities Reports erythema, limb pain, leg edema and other (numbness/tingling) History of lower extremity trauma: Yes (injury to left lower leg 2-3 months ago) Superficial thrombophlebitis: No Family history of varicose veins: unknown Has patient had previous lower extremity venous surgery: No Patient has previously received the following treatment(s) for lower extremity varicose veins: Reports none Does patient have a history of : not applicable Does patient intend to have future pregnancies: not applicable Has patient had lower extremity venous scan with relux testing: Yes Support hose used: Yes (20 yrs ago) Problems walking or doing physical activity: Yes How does it affect you: Difficult doing daily activities, standing for long periods of time Do you walk much: No Do you stand much: No Medication compliance: fair Review of Systems ROS Narrative Ton Martin MD personally performed the services described in this documentation, as scribed by Ani Diaz RN in my presence and it is both accurate and complete. Ani Martin RN, am scribing for, and in the presence of, Dr. Ton Toeldo and in the presence of the patient. Status of ROS 10 or more systems reviewed and unremark able except as noted in history and below Cardiovascular Reports: edema Integumentary/Breast Reports: redness, skin pain, skin tenderness, skin swelling, non-healing lesion (mid medial left lower leg) and changes in skin color Neurological Reports: numbness in extremities and weakness in extremities Hematologic/Lymphatic Reports: easy bruising and easy bleeding [facility] History (Updated 09/11/24 @ 15:22 by Yaya Melgoza) Phlebitis of superficial vein of right lower extremity ?I80.01 - Phlebitis and thrombophlebitis of superficial vessels of right lower extremity (ICD-10) Phlebitis and thrombophlebitis of superficial vessels of left lower extremity ?I80.02 - Phlebitis and thrombophlebitis of superficial vessels of left lower extremity (ICD-10) 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 ?I83.813 - Varicose veins of bilateral lower extremities with pain (ICD-10) Heart disease ?I51.9 - Heart disease, unspecified (ICD-10) Carpal tunnel syndrome ?G56.00 - Carpal tunnel syndrome, unspecified upper limb (ICD-10) Surgical History (Updated 09/11/24 @ 14:37 by Yaya Melgoza) Status post laser ablation of incompetent vein ?Z98.890 - Other specified postprocedural states (ICD-10) History of carpal tunnel surgery ?Z98.890 - Other specified postprocedural states (ICD-10) Family History (Updated 08/15/24 @ 13:25 by Yaya Melgoza) Father Family history of myocardial infarction Brother Family history of myocardial infarction Social History (Updated 08/15/24 @ 13:25 by Yaya Melgoza) Within the past year, how often did you have a drink containing alcohol: never Score interpretation: A score less than 4 is consistent with normal alcohol consumption. Smoking status: Never smoker Meds Home Medications and Allergies Home Medications ?Medication ?Instructions ?Recorded ?Confirmed ?Type apixaban 5 mg PO BID 08/15/24 08/15/24 History atorvastatin 20 mg tablet (Lipitor) 20 mg PO DAILY 08/15/24 08/15/24 History blood pressure medication 08/15/24 History flecainide 50 mg tablet 50 mg PO Q12H 08/15/24 08/15/24 History Allergies Allergy/AdvReac Type Severity Reaction Status Date / Time No Known Drug Allergies Allergy Verified 08/15/24 13:28 Exam Narrative Exam Narrative: ITon MD personally performed the services described in this documentation, as scribed by Ani Diaz RN in my presence and it is both accurate and complete. IAni RN, am scribing for, and in the presence of, Dr. Ton Toledo and in the presence of the patient. Constitutional Documenting provider has reviewed patient's vital signs: yes Common normals: oriented x3 Nutritional appearance: overweight Lymph Lymphatic: no lymphedema noted Cardio Peripheral pulses: posterior tibial pulses present and dorsalis pedis pulses present Extremity Common normals: normal capillary refill General: calf tenderness and edema Right lower extremity: lower leg Right lower leg: inspection and palpation Left lower extremity: lower leg (wound mid/medial lower leg ) Left lower leg: inspection and palpation Neuro Common normals: oriented x3 Assessment and Plan Assessment and Plan (1) 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 The patient verbalizes understanding and states they will comply.? Patient was given post-procedure instructions. Patient was discharged in good condition.? Scheduled to undergo follow-up evaluation on 09/23/24. Ton Martin MD personally performed the services described in this documentation, as scribed by Ani Diaz RN in my presence and it is both accurate and complete. Ani Martin RN, am scribing for, and in the presence of, Dr. Ton Toledo and in the presence of the patient. Procedures Procedure Instructions Procedures leg microfoam chemical ablation/Varithena: Risks and benefits of the procedure were discussed at length and informed written consent was obtained.? Time-out procedure was performed and the correct patient and procedure were confirmed.? Staff present during time-out: Ani Diaz RN and Ton Toledo MD.? Patient prepped and procedure performed in usual sterile fashion.? Patient was placed in Trendelenburg prior to Polidocanol/Varithena injections. Sclerosing Agent:?? 4cc 1% Polidocanol/Varithena Site Injected: left leg Number of Injections:? 6cc into 4mm vein left distal medial lower leg 5cc into 4mm vein left mid lateral lower leg The patient tolerated the procedure well without complication.? Hemostasis was obtained and thigh-high compression stocking was applied with foam pads.? Instructed patient to wear stocking for at least 96 hours and sleep with it and only remove for showering.? The patient was instructed to? wear stocking for 2 weeks.? Patient verbalizes understanding and states they will comply.? Patient was given post-procedure instructions. Patient was discharged in good condition.? Scheduled to undergo limited venous ultrasound and? exam on 09/23/24. Ton Martin MD personally performed the services described in this documentation, as scribed by Ani Diaz RN in my presence and it is both accurate and complete. I, Ani Diaz RN, am scribing for, and in the presence of, Dr. Ton Toledo and in the presence of the patient.
--- NOTE | 2024-09-17 13:04 | P.DS_ITS ---
Discharge Plan Discharge Disposition: Home, Self-Care Outpatient Diagnostics: VC Facility EST LMTD (Routine) Timeframe: 2 Weeks Facility: [facility] - Location: Vein Center Ordered By: Ton Toledo VC EXT Venous LT Limited (Routine) Timeframe: 2 Weeks Facility: [facility] - Location: Vein Center Ordered By: Ton Toledo Follow Up Appointments: 09/23/24 Plan of Treatment: u/s follow up following Varithena left leg 09/19/24 Patient Instructions: Polidocanol (By injection) (Eladio Arevalo) Print Language: Tajik Discharge Date/Time: 09/19/24 10:55
--- NOTE | 2024-09-19 10:14 | VEIN_ITS ---
[address] [address] Patient Name: JOSE ROCHA MRN: [id number] date: 1940 Sex: M Assigned Patient Location: Current Patient Location: Accession/Order Number: [id number] Exam Date: 09/19/2024 10:14 Report Date: 09/19/2024 11:11 At the request of: LUPE PULIDO Procedure: VC INJ Foam Sclerosant WUS QUALITY PROCESS LEAD PROCEDURE: VC INJ Foam Sclerosant WUS QUALITY PROCESS LEAD COMPARISON: None. HISTORY: I83.813 - Varicose veins of bilateral lower extremities w... Pre-operative Diagnosis: CEAP class C6 venous insufficiency with pain, tenderness, edema and incompetent left saphenous and varicose vein(s), chronic venous insufficiency left leg secondary to venous incompetence Post-operative Diagnosis: : CEAP class C6 venous insufficiency with pain, tenderness, edema and incompetent left saphenous and varicose vein(s), chronic venous insufficiency left leg secondary to venous incompetence Procedure Performed: 1. Ultrasound-guided microfoam chemical ablation with Varithenaregistered 2. Intraoperative ultrasound guidance Anesthesia: None Indications for Procedure: 83-year-old male who presents with a long history of lower extremity pain swelling and erythema skin thickening hemosiderin staining culminating in venous stasis ulcerations. The patient failed conservative medical therapy including medical compression stockings, exercise and analgesics. Prior procedures include endovenous laser ablation. Multiple incompetent varicosities of the left leg. Duplex scan showed reflux and enlarged diameters up to 4 mm. The patient underwent informed consent including management options where the complications of infection, bleeding, pain, and skin injury were discussed. Particular attention was spent discussing thrombus extension and deep vein thrombosis as well as the possibility of pulmonary embolus and treatment with oral or injectable blood thinners. Procedure: The patient walked to the procedure room. All applicable staff donned appropriate apparel. A procedure timeout was performed to confirm correct patient, correct extremity, correct procedure, and correct room set-up including presence of all applicable supplies, devices, and drugs. A duplex ultrasound, performed by myself confirmed the location and incompetence of branch saphenous varicosities and their course was marked on the skin together with the dilated tributaries. The extent of treatment of the vein and the associated varicosities was determined through ultrasound mapping. The skin was prepped and then punctured with a butterfly needle and advanced under ultrasound guidance. The Varithenaregistered canister was activated and the canister was primed and purged as required in the instructions for use. Varithenaregistered was drawn into a sterile syringe. Following injections were made: 6 cc injected into a 4 mm varicose vein left distal medial lower leg 5 cc injected into a 4 mm varicose vein left mid lateral lower leg Varithenaregistered was slowly administered at 0.5-1.0 cc/second with close observation by ultrasound of its course in the vessels. Total volume utilized was: 11 cc. Following administration of Varithenaregistered the leg was elevated and the patient was asked to repeatedly dorsiflex the ankle to limit flow of Varithenaregistered into perforating veins. Once appropriate spasm had been confirmed in the treated veins, the vascular catheter was removed from the leg and light pressure was applied over the puncture site for hemostasis. The common femoral and deep superficial veins were then evaluated for flow and compressibility prior to dressing placement. The lower extremity was kept elevated at 45 degrees above the horizontal and cording material was applied over the saphenous segments and tributaries to allow for eccentric compression over the target vessels including the targeted saphenous vein(s). A multilayer dressing was applied consisting of foam pads, coban and thigh-high 20-30 mm Hg compression elastic support hose were placed on the patient. The leg was lowered only after compression had been applied and the patient was immediately ambulatory. The patient ambulated 10 minutes under supervision and was without apparent concerns at time of release. Post-care instructions include advising patient to keep post-treatment bandages in place and dry for 48 hours, avoid extended periods of inactivity, avoid heavy exercise for one week, wear compression stockings on the treated leg continuously for two weeks, to walk daily for 10 minutes over the next month. The patient was instructed to take an anti-inflammatory medicine as needed and to follow up for color duplex scan of the Saphenous veins, the treated branch saphenous varicosities, the adjacent deep veins, and additional treatment within 7 days. PERSONNEL: Ani Valencia VEIN/VC INJ Foam Sclerosant WUS QUALITY PROCESS LEAD Impression: Technically successful Microfoam chemical ablation left leg incompetent varicose veins Electronically authenticated by: LUPE PULIDO Date: 09/19/2024 11:11
[2024-09-19 10:26] VITALS: BP 110/64; PULSE 65; O2SAT 97
--- OUTSIDE RECORDS SUMMARY | 2024-09-19 10:27 | XMS_ITS | CCD ---
Author Organization [facility] CliniSyfl Care Team Providers Care Increment Manager Name Role Phone JE GREEN Attending Unavailable JAMISON TELLEZ Primary Care Unavailable EJ GREEN Attending Unavailable JAMISON TELLEZ Primary Care Unavailable Jamison Tellez Unavailable Unavailable Unavailable Jamison TELLEZ Primary Care Physician [phone] Unavailable Unavailable Unavailable Primary Care Provider Unavailabl e PROVIDER, UNKNOWN Admitting Unavailable PROVIDER, UNKNOWN Attending Unavailable Peter, Ejkeyanna Strange Referring Lizbeth Green, Ms. Ej Strange Attending Dr. Jamison Briones Primary Care Unavailable Dr. Jamison Tellez Primary Care Unavailable Peter, Ms. Ej Strange Attending Lizbeth Green, Ms. Ej Strange Referring Dr. Jamison Briones Primary Care Unavailable Braydenuinsony BYERS, Dr. Atilio Landry Attending Unavailable McGuinn II, Dr. Atilio Landry Referring Unavailable Dr. Jamison Tellez Primary Care Unavailable McGuinn II, Dr. Atilio Landry Attending Unavailable McGuinn ZEESHAN, Dr. Atilio Landry Referring Unavailable Dr. Jamison Tellez Primary Care Unavailable Braydenuinsony BYERS, Dr. Atilio Landry Attending Unavailable McGuinn II, Dr. Atilio Landry Referring Unavailable Geoff, Dr. Jamison Campos Primary Care Unavailable McGuinn II, Dr. Atilio Landry Attending Unavailable Geoff, Dr. Jamison Campos Primary Care Unavailable Geoff, Dr. Jamison Campos Primary Care Unavailable Braydenuinn II, Dr. Atilio Landry Attending Unavailable Geoff, Dr. Jamison Campos Primary Care Unavailable [facility], Dr. Carmen Blanton Attending Jennifer vaDr. Jamison Milian Primary Care Unavailable Geoff PUENTES, Jamison Campos Primary Care Provider [phone] Jamison Tellez DO Primary Care Provider ATILIO EVANS Attending Unavailable JAMISON TELLEZ Primary Care Unavailable JUDI HERNANDEZ Attending Unavailable LUIS ARMANDO, CATIE Pantoja Attending Unavailabl e BOHKATHI, CATIE Pantoja Attending Unavailabl e HILLS, JUDI D Attending Unavailable BOY, JUDI D Attending Unavailable BOY, JUDI D Referring Unavailable BOHKATHI, CATIE Pantoja Attending Unavailabl e HILLS, JUDI Constance Attending Unavailable HILLS, JUDI D Attending Unavailable BOHKATHI, CATIE Pantoja Attending Unavailabl e JAMISON TELLEZ Referring Unavailable JIMENEZ, IVONE T Referring Unavailable JIMENEZ, IVONE T Attending Unavailable JIMENEZ, IVONE T Referring Unavailable MEDVES, KIERSTEN Potter Attending Unavailable JIMENEZ, IVONE T Referring Unavailable BOYLECRISTI Attending Unavailable JIMENEZ, IVONE T Referring Unavailable FELTER, ARMIN Campos Attending Unavailable MEDVES, KIERSTEN Potter Attending Unavailable JIMENEZ, IVONE T Referring Unavailable ZURITA, NEO Attending Unavailable JIMENEZ, IVONE T Referring Unavailable HISEYLESTER Attending Unavailable JIMENEZ, IVONE T Referring Unavailable ZURITA, NEO Attending Unavailable JIMENEZ, IVONE T Referring Unavailable HISEYLESTER Attending Unavailable JIMENEZ, IVONE T Referring Unavailable MEDVES, KIERSTEN Potter Attending Unavailable JIMENEZ, IVONE T Referring Unavailable JIMENEZ, IVONE T Attending Unavailable JIMENEZ, IVONE T Referring Unavailable JIMENEZ, IVONE T Attending Unavailable BOHCATIE ARMENTA Attending Unavailabl e Subha Noel Attending Unavailab le Jamison TELLEZ Attending Unavailable GEOFF, Jamison Campos Attending Unavailable KAPJamison STEWART Attending Unavailable Romeo Anders. Attending Unavailable Fidel Magdaleno Attending Unavailable FABIO BEARDEN Attending Unavailabl e Fidel Magdaleno Attending Unavailable ClinIvone mejia Attending Unavailable Daria Bermudez Attending Unavailable Daria Bermudez Attending Unavailable Fidel Magdaleno Attending Unavailable Ivone Bull Attending Unavailable Nakul Owen Attending Unavailable BordnerDaria C Attending Unavailable Lara Daria C Admitting Unavailable Hatunde, Astrit H Attending Unavailable Con, Astrit H Attending Unavailable Jamison TELLEZ Referring Unavailable Jamison TELLEZ Attending Unavailable FABIO BEARDEN Attending UnavailFABIO Felder Admitting Unavailabl Romeo Albright Attending Unavailable Romeo Anders Admitting Unavailable KAPKARMA, Jamison Campos Attending Unavailable KAPLE, Jamison Campos Attending Unavailable KAPLE, Jamison Campos Attending Unavailable KAPLE, Jamison Campos Referring Unavailable KAPLE, Jamison Campos Attending Unavailable KAPLE, Jamison Campos Admitting Unavailable FABIO BEARDEN Attending UnavailFABIO Felder Admitting Unavailabl e Jose Corley Attending Unavailable BURLESONJUANA Olivas Attending Unavailable KAPLE, Jamison Campos Attending Unavailable KAPLE, Jamison Campos Attending Unavailable KAPLE, Jamison Campos Attending Unavailable KAPLE, Jamison Campos Attending Unavailable KAPLE, Jamison Campos Attending Unavailable KAPLE, Jamison Campos Attending Unavailable KAPLE, Jamison Campos Attending Unavailable KAPLE, Jamison Campos Attending Unavailable KAPLE, Jamison Campos Attending Unavailable BordnerDaria C Admitting Unavailable Bordner Daria C Attending Unavailable Allergies Allergy Classification Reported Allergen(s) Allergy Type Date of Onset Reaction(s) Facility (2 sources) Chlorhexidine; Translations: [chlorhexidine topical] Drug Allergy [facility] Repository Medications Current Medications Medication Drug Class(es) Dates Sig (Normalized) Sig (Original) acetaminophen 500 mg oral tablet (4 sources) acetaminophen (Tylenol) 500 MG tablet Take by mouth Active amLODIPine 5 mg oral tablet (20 sources) Dihydropyridine Calcium Channel Melvi Start: 01-19-2022 take 1 tablet by mouth once daily Norvasc 2.5 mg Tab 2.5 mg = 1 tab(s), Oral, Daily, # 90 tab(s), Refills(s) 3, Pharmacy: [facility] #[id number], 178, cm, 01/19/22 11:37:00 EDT, Height/Length Dosing, 83.9, kg, 01/19/22 11:37:00 EDT, Weight Dosing Start Date: 01/19/22 Status: Ordered Start: 10-20-2021 take 1 tablet by martine th at bedtime amLODIPine 5 mg Tab 5 mg = 1 tab(s), Oral, Bedtime, Refills(s) 0 Start Date: 02/24/23 Status: Ordered apixaban 5 mg oral tablet (20 sources) Factor Xa Inhibitor Start: 02-25-2023 take 1 tablet by mouth twice daily Eliquis 5 mg oral tablet 5 mg = 1 tab(s), Oral, BID, # 60 tab(s), Refills(s) 0, other reason (Rx) Start Date: 02/25/23 Status: Ordered Start: 02-25-2023 take 1 tablet by martine th every twelve hours Eliquis 5 MG Oral Tablet TAKE 1 TABLET Every twelve hours Quantity: 60 Refills: 11 Ordered: 29-Jun-2023 Atilio Evans MD Start : 25-Feb-2023 Active aspirin 81 mg oral tablet (20 sources) Platelet Aggregation Inhibitor, Nonsteroidal Anti-inflammatory Drug Start: 07-18-2017 take 1 tablet by mouth once daily aspirin 81 mg oral tablet 81 mg = 1 tab(s), Oral, Daily, Refills(s) 0, Prophylaxis Start Date: 07/18/17 Status: Ordered take 1 tablet by mouth in the mo rning aspirin 81 MG EC tablet Take 81 mg by mouth in the morning. 0 Active atorvastatin 20 mg oral tablet (20 sources) HMG-CoA Reductase Inhibitor Start: 03-09-2007 take 1 tablet by mouth once daily at bedtime Lipitor 20 mg Tab 20 mg = 1 tab(s), Oral, Once a day (at bedtime), # 90 tab(s), Refills(s) 3, Pharmacy: [facility] #[id number], 178, cm, 01/07/24 13:15:00 EDT, Height/Length Dosing, 87, kg, 01/07/24 13:15:00 EDT, Weight Dosing Start Date: 01/12/24 Status: Ordered B Iwyawxp-I-Wbvtw Acid (B-Complex Balanced) tablet (4 sources) take 1 tablet by mouth once daily B Ftlewev-R-Lucek Acid (B-Complex Balanced) tablet Take 1 tablet by mouth Daily Active benzonatate 100 mg oral capsule (10 sources) Non-narcotic Antitussive Start: 05-15-2024 End: 05-22-2024 take 1 capsule by mouth three times daily benzonatate (Tessalon) 100 MG capsule TAKE 1 CAPSULE BY MOUTH THREE TIMES DAILY for 7 days 05/15/2024 Active Start: 11-20-2023 End: 11-30-2023 take 2 capsules by mouth three times daily Tessalon 100 mg Cap 200 mg = 2 cap(s), Oral, TID, X 10 day(s), # 60 cap(s), Refills(s) 0, Pharmacy: [facility] #[id number], 178, cm, 11/20/23 13:33:00 EST, Height/Length Dosing, 87, kg, 11/20/23 13:33:00 EST, Weight Dosing Start Date: 11/20/23 Stop Date: 11/30/23 Status: Ordered Start: 11-13-2023 End: 11-20-2023 take 1 capsule by mouth three times daily Tessalon 100 mg Cap 100 mg = 1 cap(s), Oral, TID, X 7 day(s), # 21 cap(s), Refills(s) 0, Pharmacy: [facility] #[id number], 178, cm, 11/13/23 13:45:00 EST, Height/Length Dosing, 85.9, kg, 11/13/23 13:45:00 EST, Weight Dosing Start Date: 11/13/23 Stop Date: 11/20/23 Status: Ordered bismuth tribromophenate 0.03 mg/mg topical ointment (2 sources) Start: 10-30-2023 End: 11-09-2023 Bismuth Tribromoph-Petrolatu m (Xeroform Petrolatum Dres 4 x4 ) 3 % pads Indications: Skin tear of left lower leg without complication, initial encounter Apply 1 Application topically Daily as needed (Apply to skin tear) for up to 10 days 10 each 0 10/30/2023 11/09/2023 Active capsaicin 0.75 mg/ml topical cream (2 sources) Start: 05-25-2022 capsaicin Top 0.075% Crm 1 riki, Topical, BID, 57 gram, Refill(s) 0, Apply to affected area. Avoid contact with face and eyes., [facility] #37, 178, cm, 05/25/22 14:29:00 EDT, Height/Length Dosing, 82.2, kg, 05/25/22 14:29:00 EDT, Weight Dosing Start Date: 05/25/22 Status: Ordered cholecalciferol 0.05 mg oral capsule (11 sources) Vitamin D cholecalciferol (Vitamin D-3) 50 MCG (1999 UT) capsule 1 capsule 1 (one) time each day at the same time. Active cholecalciferol (Vitamin D-3) 50 mcg (2,000 unit) capsule 1 capsule (50 mcg) early in the morning.. Active citalopram 20 mg oral tablet (2 sources) Serotonin Reuptake Inhibitor Start: 10-30-2021 take 1 tablet by mouth once daily CeleXA 20 mg Tab 20 mg = 1 tab(s), Oral, Daily, # 30 tab(s), Refills(s) 5, Pharmacy: [facility] #[id number], 178, cm, 10/29/21 22:53:00 EST, Height/Length Dosing, 83.1, kg, 10/29/21 22:53:00 EST, Weight Dosing Start Date: 10/30/21 Status: Ordered clindamycin 300 mg oral capsule (5 sources) Lincosamide Antibacterial Start: 11-10-2023 End: 11-17-2023 take 1 capsule by mouth in the morning, then take 1 capsule by mouth in the evening, then take 1 capsule by mouth at bedtime clindamycin (Cleocin) 300 MG capsule Indications: Skin tear of left lower leg without complication, subsequent encounter Take 1 capsule (300 mg) by mouth in the morning and 1 capsule (300 mg) in the evening and 1 capsule (300 mg) before bedtime. Do all this for 7 days. 21 capsule 0 11/10/2023 11/17/2023 Active Start: 06-26-2023 End: 07-06-2023 take 1 capsule by mouth every six hours clindamycin 300 mg oral cap 300 mg = 1 cap(s), Oral, q6hr, X 10 day(s), # 40 cap(s), Refills(s) 0, Pharmacy: [facility] #37, 178, cm, 06/26/23 14:26:00 EDT, Height/Length Dosing, 85.8, kg, 06/26/23 14:26:00 EDT, Weight Dosing Start Date: 06/26/23 Stop Date: 07/06/23 Status: Ordered diclofenac sodium 10 mg/ml topical cream (16 sources) Nonsteroidal Anti-inflammatory Drug Start: 06-15-2021 apply 60 g topically four times daily as needed diclofenac sodium 1% topical cream See Instructions, 60 gm, Refill(s) 11, qid to skin prn, [facility] #37, 178, cm, 06/15/21 8:52:00 EDT, Height/Length Dosing, 82.9, kg, 06/15/21 8:52:00 EDT, Weight Dosing Start Date: 06/15/21 Status: Ordered Start: 06-15-2021 apply 60 g topically four times daily as needed diclofenac sodium 1% topical cream See Instructions, 60 gm, Refill(s) 11, qid to skin prn, [facility] #37, 178, cm, 06/15/21 8:52:00 EDT, Height/Length Dosing, 82.9, kg, 06/15/21 8:52:00 EDT, Weight Dosing Start Date: 06/15/21 Status: Ordered doxycycline hyclate 100 mg oral capsule (3 sources) Tetracycline-class Drug Start: 07-23-2024 End: 07-30-2024 take 1 capsule by mouth every twelve hours at mealtime doxycycline hyclate 100 mg Cap 100 mg = 1 cap(s), Oral, q12hr, with fluids may take with food to minimize abdominal discomfort, X 7 day(s), # 14 cap(s), Refills(s) 0, Pharmacy: [facility] #37, 173, cm, 07/23/24 9:42:00 EDT, Height/Length Dosing, 85.7, kg, 07/23/24 9:42:00 EDT, Weight Dosing Start Date: 07/23/24 Stop Date: 07/30/24 Status: Ordered Start: 11-20-2023 take 1 capsule by [facility] twice daily doxycycline hyclate 100 mg Cap 100 mg = 1 cap(s), Oral, BID, # 20 cap(s), Refills(s) 0, Pharmacy: [facility] #37, 178, cm, 11/20/23 13:33:00 EST, Height/Length Dosing, 87, kg, 11/20/23 13:33:00 EST, Weight Dosing Start Date: 11/20/23 Status: Ordered flecainide acetate 50 mg oral tablet (20 sources) Antiarrhythmic Start: 03-31-2023 take 1 tablet by mouth every twelve hours flecainide 50 mg Tab 50 mg = 1 tab(s), Oral, q12hr, # 60 tab(s), Refills(s) 0, Pharmacy: [facility] #37, 182, cm, 03/31/23 1:05:00 EDT, Height/Length Dosing, 88, kg, 03/31/23 1:05:00 EDT, Weight Dosing Start Date: 03/31/23 Status: Ordered Start: 03-31-2023 take 1 tablet by martine th every twelve hours flecainide (Tambocor) 50 MG tablet Take 50 mg by mouth every 12 (twelve) hours. 03/31/2023 Active Start: 02-25-2023 take 1 tablet by martine th once daily Flecainide Acetate 150 MG Oral Tablet TAKE 1 TABLET EVERY 12 HOURS DAILY. Quantity: 60 Refills: 11 Ordered: 25-Feb-2023 Atilio Evans MD Start : 25-Feb-2023 Active Start: 11-28-2022 flecainide 100 mg Tab 150 mg = 1.5 tab(s), Oral, q12hr, # 180 tab(s), Refills(s) 1, Pharmacy: [facility] #37, 180, cm, 11/27/22 10:21:00 EST, Height/Length Dosing, 83.5, kg, 11/27/22 10:21:00 EST, Weight Dosing Start Date: 11/28/22 Status: Ordered Start: 11-11-2020 take 1 tablet by martine th once daily Flecainide Acetate 100 MG Oral Tablet TAKE 1 TABLET BY MOUTH EVERY 12 HOURS DAILY Quantity: 180 Refills: 3 Ordered: 28-Nov-2022 Atilio Evans MD Start : 11-Nov-2020 Active Start: 03-22-2019 take 1 tablet by martine th every twelve hours flecainide 100 mg Tab 100 mg = 1 tab(s), Oral, q12hr, # 180 tab(s), Refills(s) 1, Pharmacy: [facility] #37, 180, cm, 11/27/22 10:21:00 EST, Height/Length Dosing, 83.5, kg, 11/27/22 10:21:00 EST, Weight Dosing Start Date: 11/28/22 Status: Ordered fluticasone propionate 0.05 mg/actuat metered dose nasal spray (3 sources) Corticosteroid Start: 01-19-2022 fluticasone 0. 05 mg/inh Nasal Loyal 50 microgram, 1 spray(s), Nasal, BID, 16 gram, Refill(s) 5, each nostril, [facility] #37, 178, cm, 01/19/22 11:37:00 EDT, Height/Length Dosing, 83.9, kg, 01/19/22 11:37:00 EDT, Weight Dosing Start Date: 01/19/22 Status: Ordered fluticasone 0.05 mg/inh Nasal Loyal (3 sources) Start: 01-19-2022 fluticasone 0. 05 mg/inh Nasal Loyal 50 microgram, 1 spray(s), Nasal, BID, 16 gram, Refill(s) 5, each nostril, [facility] #37, 178, cm, 01/19/22 11:37:00 EDT, Height/Length Dosing, 83.9, kg, 01/19/22 11:37:00 EDT, Weight Dosing Start Date: 01/19/22 Status: Ordered Start: 07-27-2020 fluticasone 0. 05 mg/inh Nasal Loyal 50 microgram, 1 spray(s), Nasal, BID, 16 gram, Refill(s) 2, each nostril, [facility]/pharmacy #[id number], 178, cm, 06/01/20 10:59:00 EDT, Height/Length Dosing, 82.3, kg, 06/01/20 10:59:00 EDT, Weight Dosing Start Date: 07/27/20 Status: Ordered gabapentin 300 mg oral capsule (20 sources) Anti-epileptic Agent Start: 08-10-2023 take 1 capsule by mouth once daily gabapentin 300 mg Cap 300 mg = 1 cap(s), Oral, Daily Start Date: 08/17/23 Status: Ordered lidocaine 0.05 mg/mg medicated patch (5 sources) Antiarrhythmic, Amide Local Anesthetic Start: 05-16-2022 Lidoderm 5% Patch 1 patch(es), Topical, Daily, 7 patch(es), Refill(s) 0, apply 12 hours on and 12 hours off daily, [facility] #37, 178, cm, 05/16/22 9:37:00 EDT, Height/Length Dosing, 83.9, kg, 05/16/22 9:37:00 EDT, Weight Dosing Start Date: 05/16/22 Status: Ordered linaclotide 0.145 mg oral capsule (10 sources) Guanylate Cyclase-C Agonist Start: 07-11-2022 take 1 capsule by mouth once daily Linzess 145 mcg oral capsule 145 mcg = 1 cap(s), Oral, Daily, # 30 cap(s), Refills(s) 0, Pharmacy: [facility] #37, 178, cm, 05/25/22 14:29:00 EDT, Height/Length Dosing, 82.2, kg, 05/25/22 14:29:00 EDT, Weight Dosing Start Date: 07/11/22 Status: Ordered losartan potassium 50 mg oral tablet (20 sources) Angiotensin 2 Receptor Melvi Start: 08-17-2023 take 1 tablet by mouth once daily losartan 50 mg Tab 50 mg = 1 tab(s), Oral, Daily Start Date: 08/17/23 Status: Ordered Start: 06-29-2023 take 1 tablet by martine th once daily Losartan Potassium 50 MG Oral Tablet TAKE 1 TABLET DAILY. Quantity: 90 Refills: 3 Ordered: 29-Jun-2023 Atilio Evans MD Start : 29-Jun-2023 Active Multiple Vitamin (multivitamin) tablet (8 sources) take 1 tablet by martine th in the morning Multiple Vitamin (multivitamin) tablet Take 1 tablet by mouth in the morning. Active take 1 tablet by mouth in the mo rning Multiple Vitamin (multivitamin) tablet Take 1 tablet by mouth in the morning. 0 Active multivitamin tablet (2 sources) Start: 03-09-2007 take 1 tablet by mouth once daily multivitamin tablet Take 1 tablet by mouth once daily. 03/09/2007 Active End: 02-06-2024 take 1 tablet by mouth once daily multivitamin tablet Take 1 tablet by mouth once daily. 02/06/2024 Discontinued (Other) One-A-Day (16 sources) Start: 02-02-2016 take 1 tablet by mouth once daily One-A-Day 1 tab(s), Oral, Daily, Refill(s) 0, Prophylaxis Start Date: 02/02/16 Status: Ordered predniSONE 10 mg oral tablet (9 sources) Start: 04-13-2024 End: 04-29-2024 take 1 tablet by mouth once daily, then take 4 tablets by mouth once daily predniSONE 10 mg Tab 10 mg, Oral, As Directed, 4 QDx4 days; 3 QDx4 d; 2 QDx4 d; 1 QDx4d; d/c, X 16 day(s), # 40 tab(s), Refills(s) 0, Pharmacy: [facility] #37, 178, cm, 04/13/24 13:29:00 EDT, Height/Length Dosing, 86.3, kg, 04/13/24 13:29:00 EDT, Weight Dosing Start Date: 04/13/24 Stop Date: 04/29/24 Status: Ordered Start: 01-07-2024 predniSONE 20 mg Tab See Instructions, 2 PO x 3 days then 1 PO x 3 days with food or milk then 1/2 PO x 4 days with food or milk, # 11 tab(s), Refills(s) 0, Pharmacy: [facility] #37, 178, cm, 01/07/24 13:15:00 EDT, Height/Length Dosing, 87, kg, 01/07/24 13:15:00 EDT, Weight Dosing Start Date: 01/07/24 Status: Ordered Start: 11-20-2023 predniSONE 10 mg Tab 10 mg = 1 tab(s), Oral, As Directed, Take 4 tabs for 3 days, 3 tabs for 3 days, 2 tabs for 3 days, 1 tab for 3 days., # 30 tab(s), Refills(s) 0, Pharmacy: [facility] #37, 178, cm, 11/20/23 13:33:00 EST, Height/Length Dosing, 87, kg, 11/20/23 13:33:00 EST, Weight Dosing Start Date: 11/20/23 Status: Ordered psyllium 3400 mg powder for oral suspension (20 sources) Start: 04-12-2024 take 3.4 g by mouth once daily Metamucil 3.4 g/5.2 g oral powder 3.4 gm, Oral, Daily, Refills(s) 0 Start Date: 04/12/24 Status: Ordered Start: 07-12-2023 Metamucil Oral , Refills(s) 0 Start Date: 07/12/23 Status: Ordered sulfamethoxazole 800 mg / trimethoprim 160 mg oral tablet (4 sources) Dihydrofolate Reductase Inhibitor Antibacterial, Sulfonamide Antimicrobial Start: 07-15-2024 End: 07-25-2024 Bactrim D.S. 800 mg-160 mg Tab 1 tab(s), Oral, BID for 10 day(s), 20 tab(s), Refill(s) 0, [facility] #37, 173, cm, 07/15/24 14:55:00 EDT, Height/Length Dosing, 86, kg, 07/15/24 14:55:00 EDT, Weight Dosing Start Date: 07/15/24 Stop Date: 07/25/24 Status: Ordered tadalafil 5 mg oral tablet (16 sources) Phosphodiesterase 5 Inhibitor Start: 07-26-2021 take 1 tablet by mouth once daily as needed Cialis 5 mg oral tablet 5 mg = 1 tab(s), Oral, Daily, PRN for erectile dysfunction, # 30 tab(s), Refills(s) 5, Pharmacy: [facility] #37, 178, cm, 07/26/21 13:21:00 EDT, Height/Length Dosing, 82.6, kg, 07/26/21 13:21:00 EDT, Weight Dosing Start Date: 07/26/21 Status: Ordered tamsulosin hydrochloride 0.4 mg oral capsule (20 sources) alpha-Adrenergic Melvi Start: 07-31-2023 take 1 capsule by mouth once daily Flomax 0.4 mg Cap 0.4 mg = 1 cap(s), Oral, Daily, # 90 cap(s), Refills(s) 3, Pharmacy: [facility] #37, 178, cm, 07/12/23 15:07:00 EDT, Height/Length Dosing, 85.4, kg, 07/12/23 15:07:00 EDT, Weight Dosing Start Date: 07/31/23 Status: Ordered Start: 07-31-2023 take 1 capsule by [facility] every twenty-four hours in the morning tamsulosin (Flomax) 0.4 MG 24 hr capsule Take 0.4 mg by mouth in the morning. 07/31/2023 Active Start: 05-26-2021 take 1 capsule by mouth once d aily Tamsulosin HCl - 0.4 MG Oral Capsule TAKE 1 CAPSULE BY MOUTH DAILY Quantity: 90 Refills: 0 Ordered: 26-May-2021 DO Start : 26-May-2021 Active take 1 capsule by mo [facility] three times weekly tamsulosin (Flomax) 0.4 mg 24 hr capsule Take 1 capsule (0.4 mg) by mouth 3 times a week. Active tiZANidine 4 mg oral capsule (20 sources) Central alpha-2 Adrenergic Agonist Start: 04-13-2024 take 1 capsule by mouth three times daily tizanidine 4 mg oral capsule 4 mg = 1 cap(s), Oral, TID, # 90 cap(s), Refills(s) 0, Pharmacy: [facility] #[facility], 178, cm, 04/13/24 13:29:00 EDT, Height/Length Dosing, 86.3, kg, 04/13/24 13:29:00 EDT, Weight Dosing Start Date: 04/13/24 Status: Ordered Vitamin D3 50 mcg (2000 intl units) oral tablet, chewable (20 sources) Start: 06-23-2022 take 1 tablet by mouth once daily Vitamin D3 50 mcg (2000 intl units) oral tablet, chewable 50 mcg = 1 tab(s), Oral, Daily Start Date: 06/23/22 Status: Ordered zolpidem tartrate 12.5 mg extended release oral tablet (20 sources) gamma-Aminobutyri c Acid-ergic Agonist Start: 07-12-2023 zolpidem 12.5 mg oral ER Tab 12.5 mg = 1 tab(s), Refills(s) 0 Start Date: 07/23/24 Status: Ordered Start: 01-16-2023 take 1 tablet by [facility] once daily at bedtime as needed for sleep zolpidem 12.5 mg oral ER Tab 12.5 mg = 1 tab(s), Oral, Once a day (at bedtime), PRN for sleep, 30 day supply, # 30 tab(s), Refills(s) 5, Pharmacy: [facility] #[facility], 178, cm, 12/13/22 13:06:00 EDT, Height/Length Dosing, 87.1, kg, 12/13/22 13:06:00 EDT, Weight Dosing Start Date: 01/16/23 Status: Ordered Start: 01-18-2022 take 1 tablet by martine th once daily at bedtime as needed for sleep zolpidem 12.5 mg oral ER Tab 12.5 mg = 1 tab(s), Oral, Once a day (at bedtime), PRN for sleep, 30 day supply, # 30 tab(s), Refills(s) 5, Pharmacy: [facility] #[facility], 178, cm, 01/06/22 13:50:00 EDT, Height/Length Dosing, 84.4, kg, 01/06/22 13:50:00 EDT, Weight Dosing Start Date: 01/18/22 Status: Ordered Start: 07-26-2021 take 1 tablet by martine th once daily at bedtime as needed for sleep zolpidem 12.5 mg oral ER Tab 12.5 mg = 1 tab(s), Oral, Once a day (at bedtime), PRN for sleep, 30 day supply, # 30 tab(s), Refills(s) 5, Pharmacy: [facility] #[facility], 178, cm, 07/26/21 13:21:00 EDT, Height/Length Dosing, 82.6, kg, 07/26/21 13:21:00 EDT, Weight Dosing Start Date: 07/26/21 Status: Ordered Completed/Discontinued Medications Medication Drug Class(es) Dates Sig (Normalized) Sig (Original) cephalexin 500 mg oral capsule (9 sources) Cephalosporin Antibacterial Start: 07-12-2024 End: 07-22-2024 take 1 capsule by mouth twice daily at bedtime cephalexin 500 mg Cap 500 mg = 1 cap(s), Oral, BID, TAKE 1 CAPSULE BY MOUTH IN THE MORNING and before bedtime FOR 10 DAYS Start Date: 07/15/24 Status: Ordered Start: 09-06-2023 End: 09-13-2023 take 1 capsule by mouth every eight hours Keflex 500 mg Cap 500 mg = 1 cap(s), Oral, q8hr, X 7 day(s), # 21 cap(s), Refills(s) 0, Pharmacy: [facility] #[id number], 178, cm, 09/06/23 14:19:00 EST, Height/Length Dosing, 86.3, kg, 09/06/23 14:19:00 EST, Weight Dosing Start Date: 09/06/23 Stop Date: 09/13/23 Status: Ordered Multi Vitamin Oral Tablet (2 sources) take 1 tablet by mouth once daily Multi Vitamin Oral Tablet TAKE 1 TABLET DAILY. Quantity: 0 Refills: 0 Ordered: 29-Jun-2023 DO Active One A Day Men's Complete (20 sources) Start: 3 One A Day Men's Complete Oral, Daily, Refill(s) 0 Start Date: 03/31/23 Status: Ordered triamcinolone acetonide 1 mg/ml topical cream (20 sources) Corticosteroid Start: 4 apply 15 g topically twice daily triamcinolone Top 0.1% Crm 15 gram See Instructions, 454 gm, Refill(s) 1, Topical BID topically twice daily as needed for itching, red, scaly areas, [facility]/pharmacy #[id number], 178, cm, 11/20/23 13:33:00 EST, Height/Length Dosing, 87, kg, 11/20/23 13:33:00 EST, Weight Dosing Start Date: 12/14/23 Status: Ordered Start: 05-18-2023 apply 15 g topically twice dana ly triamcinolone Top 0.1% Crm 15 gram See Instructions, 454 gm, Refill(s) 1, Topical BID topically twice daily as needed for itching, red, scaly areas, [employer] [id number], 178, cm, 04/06/23 10:54:00 EDT, Height/Length Dosing, 84, kg, 04/06/23 10:54:00 EDT, Weight Dosing Start Date: 05/18/23 Status: Ordered Start: 05-12-2023 triamcinolone topical 0.05% ointment 1 riki, Topical, BID, 45 gm, Refill(s) 1, [employer] [facility], 178, cm, 04/06/23 10:54:00 EDT, Height/Length Dosing, 84, kg, 04/06/23 10:54:00 EDT, Weight Dosing Start Date: 05/12/23 Status: Ordered Start: 06-01-2020 triamcinolone acetonide Once, Refills(s) 0 Start Date: 06/01/20 Status: Ordered Problems Active Problems Problem Classification Problem Date Documented Da te Episodic/Chronic Allergic reactions (12 sources) Atopic dermatitis 03-23-2021 Chronic Allergic reactions (20 sources) [id number] vesicular eczema of hands and feet 12-13-2022 Episodic Cardiac dysrhythmias (20 sources) Paroxysmal atrial fibrillation; Translations: [Atrial fibrillation] Onset: 9 04-05-2019 Chronic Cardiac dysrhythmias (19 sources) Palpitations; Translations: [Palpitations] Onset: 9 12-06-2023 Episodic Chronic ulcer of skin (1 source) Ulcer of lower extremity; Translations: [Non-pressure chronic ulcer of unspecified part of left lower leg with fat layer exposed] 07-12-2024 Chronic Coagulation and hemorrhagic disorders (20 sources) Spontaneous ecchymosis; Translations: [Spontaneous ecchymoses] Onset: 3 10-22-2021 Episodic Conditions associated with dizziness or vertigo (1 source) Dizziness and giddiness; Translations: [Dizziness and giddiness] Onset: 3 Episodic Disorders of lipid metabolism (20 sources) Hyperlipidemia, unspecified; Translations: [Familial hypercholesterolemia] Onset: 9 10-22-2021 Chronic E Codes: Fall (1 source) Fall; Translations: [Unspecified fall, initial encounter] Onset: 4 Episodic Essential hypertension (20 sources) Benign essential hypertension; Translations: [Benign essential hypertension] Onset: 2 10-22-2021 Chronic Genitourinary symptoms and ill-defined conditions (20 sources) Retention of urine; Translations: [Nocturia] Onset: 2 10-22-2021 Episodic Hemorrhoids (20 sources) Hemorrhoids 07-05-2017 Episodic Hyperplasia of prostate (20 sources) Benign prostatic hyperplasia; Translations: [Nocturia due to benign prostatic hypertrophy] Onset: 2 03-23-2021 Chronic Malaise and fatigue (20 sources) Malaise and fatigue 10-22-2021 Episodic Miscellaneous mental health disorders (20 sources) Chronic insomnia; Translations: [Psychophysiologic insomnia] Onset: 3 03-22-2019 Chronic Mycoses (2 sources) Onychomycosis; Translations: [Tinea unguium] 11-05-2023 Episodic Neoplasms of unspecified nature or uncertain behavior (20 sources) Neoplastic disease of uncertain behavior 07-22-2022 Episodic Nonspecific chest pain (20 sources) Musculoskeletal chest pain; Translations: [Chest pain] Onset: 2 05-18-2021 Episodic Open wounds of extremities (20 sources) Laceration of upper arm; Translations: [Laceration without foreign body of unspecified upper arm, initial encounter] Onset: 2 Episodic Osteoarthritis (20 sources) Chronic osteoarthritis; Translations: [Osteoarthritis of right knee joint] 07-05-2017 Chronic Other aftercare (20 sources) Drug therapy finding; Translations: [Long-term (current) use of anticoagulants] Onset: 4 02-06-2024 Episodic Other aftercare (1 source) Long-term current use of anticoagulant; Translations: [FCI (current) use of anticoagulants] Onset: 3 Episodic Other aftercare (1 source) Long-term current use of drug therapy; Translations: [Other correction (current) drug therapy] Onset: 3 Episodic Other aftercare (1 source) Taking high risk medication; Translations: [Other terminal computer operator (current) drug therapy] Onset: 4 12-06-2023 Episodic Other aftercare (2 sources) terminal superintendent (current) use of anticoagulants; Translations: [terminal superintendent (current) use of anticoagulants] Onset: 4 Episodic Other circulatory disease (5 sources) Stricture of artery; Translations: [Stricture of artery] Onset: 3 Chronic Other circulatory disease (20 sources) 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 Tellez, per outpatient [facility] policy. Other connective tissue disease (2 sources) Enthesopathy; Translations: [Other enthesopathies, not elsewhere classified] Onset: 3 Episodic Other connective tissue disease (1 source) Hand pain; Translations: [Pain in left hand] Onset: 3 Episodic Other connective tissue disease (1 source) Pain in left foot; Translations: [Pain in left foot] Onset: 4 Episodic Other connective tissue disease (1 source) Pain in left lower limb; Translations: [Pain in left leg] 07-14-2024 Episodic Other diseases of veins and lymphatics (10 sources) Peripheral venous insufficiency; Translations: [Venous insufficiency (chronic) (peripheral)] Onset: 3 Episodic Other diseases of veins and lymphatics (20 sources) Venous stasis edema of bilateral lower limbs 06-19-2023 Episodic Other disorders of stomach and duodenum (20 sources) Indigestion 03-23-2021 Episodic Other fractures (20 sources) Fracture of sternum 05-18-2021 Episodic Other gastrointestinal disorders (8 sources) Irritable bowel syndrome; Translations: [Irritable bowel syndrome without diarrhea] Onset: 3 06-12-2023 Chronic Other gastrointestinal disorders (20 sources) Chronic constipation 04-16-2019 Episodic Other gastrointestinal disorders (20 sources) Constipation 07-05-2017 Episodic Other gastrointestinal disorders (20 sources) Obstipation 03-23-2021 Episodic Other gastrointestinal disorders (2 sources) Other constipation; Translations: [Other constipation] Onset: 3 Episodic Other injuries and conditions due to external causes (20 sources) Contusion 08-25-2020 Episodic Other injuries and conditions due to external causes (20 sources) Injury of head 08-27-2021 Episodic Other injuries and conditions due to external causes (20 sources) Tear of skin 01-06-2022 Episodic Other injuries and conditions due to external causes (4 sources) Injury of lower leg 12-13-2022 Episodic Other injuries and conditions due to external causes (1 source) Injury of upper extremity; Translations: [Unspecified injury of left shoulder and upper arm, initial encounter] Onset: 4 Episodic Other lower respiratory disease (20 sources) Rib pain 10-06-2022 Episodic Other lower respiratory disease (3 sources) Cough; Translations: [Cough, unspecified] Onset: 4 Episodic Other lower respiratory disease (20 sources) Wheezing; Translations: [Wheezing] Onset: 4 Episodic Other male genital disorders (20 sources) Induratio penis plastica; Translations: [Induration penis plastica] Onset: 4 07-18-2019 Chronic Other male genital disorders (20 sources) 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 07-26-2021 Chronic Other nervous system disorders (20 sources) Hereditary sensory and autonomic neuropathy; Translations: [Other hereditary and idiopathic neuropathies] Onset: 2 Chronic Other nervous system disorders (20 sources) 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 Other nervous system disorders (7 sources) Polyneuropathy; Translations: [Polyneuropathy, unspecified] Onset: 2 Chronic Other nervous system disorders (2 sources) Idiopathic progressive polyneuropathy; Translations: [Idiopathic progressive neuropathy] 11-05-2023 Chronic Other nervous system disorders (8 sources) Neuropathy; Translations: [Idiopathic progressive neuropathy] Onset: 3 06-12-2023 Chronic Other nervous system disorders (1 source) Unsteadiness on feet Onset: 9 Episodic Other nervous system disorders (20 sources) Tingling of skin 10-22-2021 Episodic Other nervous system disorders (20 sources) Trigeminal neuralgia 02-04-2020 Episodic Other non-epithelial cancer of skin (20 sources) Malignant neoplasm of skin; Translations: [Basal cell carcinoma of skin] Onset: 3 07-05-2017 Episodic Other non-traumatic joint disorders (20 sources) Pain in wrist 01-04-2022 Episodic Other non-traumatic joint disorders (1 source) Wrist joint pain; Translations: [Pain in right wrist] Onset: 2 Episodic Other non-traumatic joint disorders (20 sources) Shoulder pain 11-03-2022 Episodic Other non-traumatic joint disorders (1 source) Disorder of joint of shoulder region; Translations: [Other specified joint disorders, left shoulder] Onset: 4 Episodic Other non-traumatic joint disorders (18 sources) Disorder of shoulder 03-26-2024 Episodic Other non-traumatic joint disorders (2 sources) Pain in left shoulder; Translations: [Pain in joint, shoulder region] 06-27-2024 Episodic Other nutritional; endocrine; and metabolic disorders (20 sources) Overweight in adulthood with body mass index of 25 or more but less than 30; Translations: [Overweight] Onset: 2 Episodic Other nutritional; endocrine; and metabolic disorders (20 sources) Overweight; Translations: [Overweight] Onset: 2 Episodic Other screening for suspected conditions (not mental disorders or infectious disease) (20 sources) Abnormal electrocardiogram [ECG] [EKG]; Translations: [Electrocardiogram abnormal] Onset: 9 Episodic Other skin disorders (20 sources) Disorder of subcutaneous tissue 03-22-2019 Episodic Other skin disorders (20 sources) Impaired skin integrity 12-04-2016 Episodic Comment on above: Problem added on doc umentation of skin impairments. Problem added on doc umentation of skin impairments. Other skin disorders (6 sources) Seborrheic keratosis of scalp 09-23-2021 Episodic Other skin disorders (2 sources) Podopompholyx; Translations: [Dyshidrosis [pompholyx]] Onset: 3 Episodic Other skin disorders (1 source) Senile hyperkeratosis; Translations: [Other seborrheic keratosis] Onset: 4 Episodic Other upper respiratory disease (1 source) Seasonal allergic rhinitis; Translations: [Other seasonal allergic rhinitis] Onset: 2 Chronic Other upper respiratory disease (20 sources) Seasonal allergy 01-19-2022 Chronic Other upper respiratory infections (20 sources) Acute pharyngitis; Translations: [Acute pharyngitis, unspecified] Onset: 2 Episodic Residual codes; unclassified (9 sources) Obstructive sleep apnea (adult)(pediatric); Translations: [Obstructive sleep apnea syndrome] Onset: 7 06-12-2023 Chronic Residual codes; unclassified (3 sources) Patient encounter status; Translations: [Other specified health status] Onset: 2 Episodic Residual codes; unclassified (2 sources) Localized edema; Translations: [Localized edema] Onset: 3 Episodic Residual codes; unclassified (2 sources) Never smoked tobacco; Translations: [Other specified health status] Onset: 4 02-06-2024 Episodic Residual codes; unclassified (2 sources) Other specified health status; Translations: [Other specified health status] Onset: 4 Episodic Residual codes; unclassified (7 sources) Edema of left lower leg 07-15-2024 Episodic Skin and subcutaneous tissue infections (20 sources) Cellulitis of lower limb; Translations: [Cellulitis of left lower limb] Onset: 3 03-23-2021 Episodic Spondylosis; intervertebral disc disorders; other back problems (20 sources) Degeneration of cervical intervertebral disc; Translations: [Other cervical disc degeneration at C5-C6 level] Onset: 3 08-25-2020 Chronic Spondylosis; intervertebral disc disorders; other back problems (20 sources) Lumbar radiculopathy; Translations: [Neck pain] Onset: 3 03-22-2019 Episodic Sprains and strains (1 source) Sprain of left shoulder; Translations: [Unspecified sprain of left shoulder joint, initial encounter] Onset: 4 Episodic Superficial injury; contusion (20 sources) Abrasion of scalp; Translations: [Contusion of lower leg] Onset: 3 10-22-2021 Episodic Syncope (20 sources) Syncope and collapse; Translations: [Syncope and collapse] Onset: 3 Episodic Unclassified (1 source) Pure hypercholesterolemia, unspecified Onset: 9 Unclassified (1 source) Family hx of ischem heart dis and oth dis of the circ sys Onset: 9 Unclassified (20 sources) Gouty arthritis of right hand 02-25-2020 Unclassified (20 sources) Osteoarthritis of joint of bilateral hands 07-26-2021 Unclassified (20 sources) Patient encounter status 06-01-2020 Unclassified (20 sources) Seborrheic keratosis 11-23-2020 Unclassified (20 sources) Non-smoker 05-25-2022 Unclassified (20 sources) Enthesopathy of right shoulder region 12-13-2022 Unclassified (2 sources) Other persistent atrial fibrillation; Translations: [Other persistent atrial fibrillation] Onset: 3 Unclassified (8 sources) Disease caused by Severe acute respiratory syndrome coronavirus 2 absent 05-31-2024 Viral infection (1 source) Viral disease; Translations: [Viral infection, unspecified] Onset: 4 Episodic Past or Other Problems Problem Classification Problem Date Documented Date Episodic/Chronic Acute and chronic tonsillitis (17 sources) Peritonsillar abscess; Translations: [Peritonsillar abscess] Onset: 06-26-2023 Episodic E Codes: Fall (20 sources) Accidental fall ; Translations: [Fall in home] Resolved: 04-16-2019 04-16-2019 Other injuries and conditions due to external causes (4 sources) Injury of left rotator cuff; Translations: [Unspecified injury of muscle(s) and tendon(s) of the rotator cuff of left shoulder, initial encounter] Onset: 04-10-2024 04-10-2024 Episodic Other non-traumatic joint disorders (4 sources) Chronic pain of left upper limb; Translations: [Pain in left shoulder] Onset: 04-10-2024 04-10-2024 Episodic Residual codes; unclassified (20 sources) Sleep apnea Resolved: 07-12-2012 03-22-2019 Chronic Comment on above: uses Bi Pap uses Bi Pap Residual codes; unclassified (20 sources) Insomnia Resolved: 07-12-2012 03-22-2019 Episodic Residual codes; unclassified (8 sources) Persistent insomnia; Translations: [Insomnia, unspecified] Onset: 03-27-2007 06-12-2023 Episodic Unclassified (17 sources) Never smoked tobacco; Translations: [Never a smoker] Unclassified (1 source) Onset: 02-06-2024 02-06-2024 Unclassified (1 source) Exposure to 2019 novel coronavirus; Translations: [Contact with and (suspected) exposure to COVID19] Onset: 05-31-2024 Viral infection (13 sources) Disease caused by 2019-nCoV; Translations: [COVID-19] Onset: 05-15-2024 Results Test Name Value Interpretation Reference Range Facil ity Ambulatory Visit Summaryon 1 10-07-2023 Ambulatory Visit Summary Ambulatory Visit Summary JOSE ROCHA :1940 Visit Date:08/07/2024 Ambulatory Visit Instructions Your Diagnosis BMI 28.0-28.9,adult Cellulitis of leg Venous stasis These Are Your Goals Hypertension: Maintain blood pressure in therapeutic range - Progressing Interventions: Maintain an active lifestyle - Progressing Monitor Sodium intake - Progressing Monitor blood pressure daily - Progressing Review education booklet - Done Take medications as prescribed - Progressing PAF: Avoid complications Interventions: Monitor for symptoms of complication - Progressing Read education material - Done Take Medications as Prescribed - Progressing Neuropathy: Remain free from injury Interventions: Continue podiatry follow ups as scheduled - Progressing Examine lower extremities - Progressing Take medications as prescribed - Progressing Your Care Team Attending Physician - Jessica Fitzpatrick Primary Care Physician - Jamison TELLEZ DO, FAAFP This Is Your Medications List apixaban (Eliquis 5 mg oral tablet) atorvastatin (Lipitor 20 mg Tab) cephalexin (cephalexin 500 mg Cap) cholecalciferol (Vitamin D3 50 mcg (2000 intl units) oral tablet, chewable) flecainide (flecainide 50 mg Tab) gabapentin (gabapentin 300 mg Cap) losartan (losartan 50 mg Tab) multivitamin with minerals (One A Day Men's Complete) psyllium (Metamucil 3.4 g/5.2 g oral powder) tamsulosin (Flomax 0.4 mg Cap) tizanidine (tizanidine 4 mg oral capsule) zolpidem (zolpidem 12.5 mg oral ER Tab) zolpidem (zolpidem 12.5 mg oral ER Tab) Procedures Performed Cardioversion (03/30/2023), Left Total Hip Arthroplasty (02/02/2016), bilateral cataract implants, Carpal tunnel release, Stephany fundoplication, skin cancer removed, stomach surgery, TURP - Transurethral resection of prostate. Discharge Vitals Temperature (Oral) 36.7 ???C Heart Rate (Peripheral) 71 Blood Pressure 128/76 Height 173 cm Height 68 in Weight 85 kg Weight 187 lb BMI 28.4 What to do next Scheduled Follow-Up Appointments 2024 3:20 PM EST With: Jamison TELLEZ DO, FAAFP Where: [facility] [address] [place] [address]- Monday 1:00 PM EDT With: Where: [facility] [address] [place] [address]- Medications What How Much When Why Instructions Unchanged apixaban (Eliquis 5 mg oral tablet) 1 Tablets By Mouth 2 times a day Unchanged atorvastatin (Lipitor 20 mg Tab) 1 Tablets By Mouth Once a day (at bedtime) Unchanged cephalexin (cephalexin 500 mg Cap) 1 Capsules By Mouth 2 times a day TAKE 1 CAPSULE BY MOUTH IN THE MORNING and before bedtime FOR 10 DAYS Unchanged cholecalciferol (Vitamin D3 50 mcg (2000 intl units) oral tablet, chewable) 1 Tablets By Mouth Every day Unchanged flecainide (flecainide 50 mg Tab) 1 Tablets By Mouth Every 12 hours Unchanged gabapentin (gabapentin 300 mg Cap) 1 Capsules By Mouth Every day Unchanged losartan (losartan 50 mg Tab) 1 Tablets By Mouth Every day Unchanged multivitamin with minerals (One A Day Men's Complete) By Mouth Every day Unchanged psyllium (Metamucil 3.4 g/ 5.2 g oral powder) 3.4 Gram By Mouth Every day Unchanged tamsulosin (Flomax 0.4 mg Cap) 1 Capsules By Mouth Every day Unchanged tizanidine (tizanidine 4 mg oral capsule) 1 Capsules By Mouth 3 times a day Lumbar spine pain Unchanged zolpidem (zolpidem 12.5 mg oral ER Tab) 1 Tablets Unchanged zolpidem (zolpidem 12.5 mg oral ER Tab) 1 Tablets By Mouth Once a day (at bedtime) as needed for for sleep Anxiety, generalized Insomnia 30 day supply Allergies No Known Allergies Problems Ongoing - Any problem that you are currently receiving treatment for. 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 Atrial fibrillation BMI 25.0-25.9,adult BPH BPH without urinary obstructi (more content not included)... Normal [facility] CBC w/ Auto Diffon 4 Basophils/100 WBC (Bld) 1.2 % Normal 0.0-2.0 [facility] Comment on above: Performed By: #### 2 [id number] #### [facility] [address] [place] [address] Basophils/Leukocyte s Auto (Bld) [Pure # fraction] 0.1 E9/L Normal 0.0-0.2 [facility] Comment on above: Performed By: #### 2 [id number] #### [facility] [address] [place] [id number] Eosinophils (Bld) [#/Vol] 0.1 E9/L Normal 0.0-0.5 [facility] Comment on above: Performed By: #### 2 [id number] #### [facility] [address] [place] [address] Eosinophils/100 WBC (Bld) 2.3 % Normal 0.0-8.0 [facility] Comment on above: Performed By: #### 2 [id number] #### [facility] [address] [place] [address] Erythrocyte distribution width (RBC) [Ratio] 14.7 % High 10.9-14.2 [facility] Comment on above: Performed By: #### 2 [id number] #### [facility] [address] [place] [id number] Hematocrit (Bld) [Volume fraction] 37.8 % Normal 37.7-49.0 [facility] Comment on above: Performed By: #### 2 [id number] #### [facility] [address] [place] [phone] Hemoglobin (Bld) [Mass/Vol] 13.1 g/dL Low 13.5-17.5 [facility] Comment on above: Performed By: #### 2 [id number] #### [facility] [address] [place] [address]898 Lymphocytes (Bld) [#/Vol] 1.4 E9/L Normal 1.0-4.0 [facility] Comment on above: Performed By: #### 2 [id number] #### [facility] [address] [place] [address] Lymphocytes/100 WBC (Bld) 22.8 % Normal 14.0-50.0 [facility] Comment on above: Performed By: #### 2 [id number] #### [facility] [address] [place] [address] MCH (RBC) [Entitic mass] 32.3 pg Normal 27.0-34.0 [facility] Comment on above: Performed By: #### 2 [id number] #### [facility] [address] [place] [address] MCHC (RBC) [Mass/Vol] 34.7 g/dL Normal 31.4-36.0 [facility] Comment on above: Performed By: #### 2 [id number] #### [facility] [address] [place] [address] MCV (RBC) [Entitic vol] 93.1 fL Normal 80.0-100.0 [facility] Comment on above: Performed By: #### 2 [id number] #### [facility] [address] [place] [address]85 Monocytes (Bld) [#/Vol] 0.8 E9/L Normal 0.2-1.0 [facility] Comment on above: Performed By: #### 2 [id number] #### [facility] [address] [place] [address] Neutrophils (Bld) [#/Vol] 3.7 E9/L Normal 2.0-7.5 [facility] Comment on above: Performed By: #### 2 [id number] #### [facility] [address] [place] [address] 09864 Neutrophils/100 WBC (Bld) 60.2 % Normal 36.0-75.0 [facility] Comment on above: Performed By: #### 2 [id number] #### [facility] [address] [place] [address] Platelet 252.0 E9/L Normal 150.0-500.0 [facility] Comment on above: Performed By: #### 2 [id number] #### [facility] [address] [place] [address] Platelet mean volume (Bld) [Entitic vol] 7.2 fL Normal 6.4-10.8 [facility] Comment on above: Performed By: #### 2 [id number] #### [facility] [address] [place] [address] RBC (Bld) [#/Vol] 4.1 E12/L Low 4.3-5.9 [facility] Comment on above: Performed By: #### 2 [id number] #### [facility] [address] [place] [address] WBC corrected for nucl RBC Auto (Bld) [#/Vol] 6.2 E9/L Normal 4.0-11.0 [facility] Comment on above: Performed By: #### 2 [id number] #### [facility] [address] [place] [address] CHEMISTRYOrdered By: SYSTEM SYSTEM on 08-07-2024 Albumin [Mass/Vol] 4.1 g/dL Normal 3.3 - 5.0 gm/dL R emisol Chem Albumin/Globulin [Mass ratio] 1.8 {ratio} Normal 1.1 - 2.2 Remisol Chem ALP [Catalytic activity/Vol] 68 [iU]/d Normal 21 - 98 Int._Unit/L Remisol Chem ALT No additional P-5'-P [Catalytic activity/Vol] 14 [iU]/d Normal 6 - 46 Int._Unit/L Remisol Chem Anion gap [Moles/Vol] 10 mmol/L Normal 6 - 16 mEq/L Remisol Chem AST [Catalytic activity/Vol] 18 [iU]/d Normal 5 - 43 Int._Unit/L Remisol Chem Bilirubin [Mass/Vol] 0.5 mg/dL Normal 0.0 - 1.1 mg/dL Remisol Chem Calcium [Mass/Vol] 9.1 mg/dL Normal 8.9 - 11.1 mg/dL Remisol Chem Chloride [Moles/Vol] 108 mmol/L Normal 101 - 111 mmol/L Remisol Chem CO2 [Moles/Vol] 25 mmol/L Normal 21 - 31 mmol/L Remis ol Chem Creatinine [Mass/Vol] 0.7 mg/dL Normal 0.5 - 1.3 mg/dL Remisol Chem eGFR 90 mL/min/1.73 m2 Normal >=59mL/min /1.73 m2 Remisol Chem Globulin (S) [Mass/Vol] 2.3 g/dL Normal 1.4 - 4.0 gm/dL Remisol Chem Glucose [Mass/Vol] 109 mg/dL Normal 55 - 199 mg/dL Re misol Chem Potassium [Moles/Vol] 4.3 mmol/L Normal 3.5 - 5.3 mmol/L Remisol Chem Protein [Mass/Vol] 6.4 g/dL Normal 6.0 - 7.8 gm/dL R emisol Chem Sodium [Moles/Vol] 139 mmol/L Normal 135 - 145 mmol/L Remisol Chem Urea nitrogen [Mass/Vol] 15 mg/dL Normal 5 - 21 mg/dL Remisol Chem Urea nitrogen/Creatinine [Mass ratio] 21 mg/mg High 10 - 20 Remisol Chem CMPon 08-07-2024 Albumin [Mass/Vol] 4.1 g/dL Normal 3.3-5.0 [facility] Comment on above: Performed By: #### 2 [id number] #### [facility] [address] [place] [address] Albumin/Globulin (S) [Mass conc ratio] 1.8 Normal 1.1-2.2 [facility] Comment on above: Performed By: #### 2 [id number] #### [facility] [address] [place] [address] ALP [Catalytic activity/Vol] 68 Int._Unit/L Normal 21-98 [facility] Comment on above: Performed By: #### 2 [id number] #### [facility] [address] [place] [address] ALT No additional P-5'-P [Catalytic activity/Vol] 14 Int._Unit/L Normal 6-46 [facility] Comment on above: Performed By: #### 2 [id number] #### [facility] [address] [place] [address] Anion gap [Moles/Vol] 10 mmol/L Normal 6-16 [facility] Comment on above: Performed By: #### 2 [id number] #### [facility] [address] [place] [address] AST [Catalytic activity/Vol] 18 Int._Unit/L Normal 5-43 [facility] Comment on above: Performed By: #### 2 [id number] #### [facility] [address] [place] [address] Bilirubin [Mass/Vol] 0.5 mg/dL Normal 0.0-1.1 [facility] Comment on above: Performed By: #### 2 [id number] #### [facility] [address] [place] [address] Calcium [Mass/Vol] 9.1 mg/dL Normal 8.9-11.1 [facility] Comment on above: Performed By: #### 2 [id number] #### [facility] [address] [place] [address] Chloride [Moles/Vol] 108 mmol/L Normal 101-111 [facility] Comment on above: Performed By: #### 2 [id number] #### [facility] [address] [place] [address] CO2 [Moles/Vol] 25 mmol/L Normal 21-31 [facility] Comment on above: Performed By: #### 2 [id number] #### [facility] [address] [place] [address] Creatinine [Mass/Vol] 0.7 mg/dL Normal 0.5-1.3 [facility] Comment on above: Performed By: #### 2 [id number] #### [facility] [address] [place] [address] Globulin (S) [Mass/Vol] 2.3 g/dL Normal 1.4-4.0 [facility] Comment on above: Performed By: #### 2 [id number] #### [facility] [address] [place] [address] Glucose [Mass/Vol] 109 mg/dL Normal 55-199 [facility] Comment on above: Performed By: #### 2 [id number] #### [facility] [address] [place] [address] Potassium [Moles/Vol] 4.3 mmol/L Normal 3.5-5.3 [facility] Comment on above: Performed By: #### 2 [id number] #### [facility] [address] [place] [address] Protein [Mass/Vol] 6.4 g/dL Normal 6.0-7.8 [facility] Comment on above: Performed By: #### 2 [id number] #### [facility] [address] [place] [address] Sodium [Moles/Vol] 139 mmol/L Normal 135-145 [facility] Comment on above: Performed By: #### 2 [id number] #### [facility] [address] [place] [address] Urea nitrogen [Mass/Vol] 15 mg/dL Normal 5-21 [facility] Comment on above: Performed By: #### 2 [id number] #### [facility] [address] [place] [address] Urea nitrogen/Creatinine [Mass ratio] 21 No Units High 10-20 [facility] Comment on above: Performed By: #### 2 [id number] #### [facility] [address] [place] [address] Family Medicine Office/Clini c Noteon 08-07-2024 Family Medicine Office/Clinic Note Family Medicine Office/Clinic Note Chief Complaint lt leg swelling/pain/redness HPI Staff 83 year old male presents with left leg pain, swelling, redness onset- multiple weeks, roughly 6 weeks given cephalexin but it did not help, the other prescriptions hes been given have also not helped symptoms History of Present Illness I have reviewed and verified the staff HPI to be accurate for this encounter. Portions of this record have been created with voice recognition software. Occasional wrong-word or ???bqtjg-[id number]-[id number]??? substitutions may have occurred due to the inherent limitations of voice recognition software. 83-year-old male with history of peripheral venous insufficiency, idiopathic neuropathy bilateral lower extremities, hypertension, and atrial fibrillation presents with continued complaints of left leg swelling, pain and redness after multiple courses of antibiotics. He states he was seen originally by the collection technician, and Dr. Tellez before coming to us. He was last seen here by the same provider on July 23, 2024 where he was placed on a third antibiotic of doxycycline and referred to wound care. Patient states he went to the wound care clinic and was told they were backed up and did not need to be seen based on what they could see. He denies any fever or chills. He is concerned about the right lower extremity as he has neuropathy and the wound on the left lower extremity does not seem to be healing. He denies elevating the leg regularly as instructed but occasionally does elevate at while in a recliner chair. He has not noticed any drainage from the site. Review of Systems PHQ Score Initial Depression Screen Score: 0 SCORE ROS negative unless otherwise stated in HPI. Physical Exam Vitals & Measurements T: 36.7 ???C(Oral) HR: 71(Peripheral) BP: 128/76 SpO2: 97% HT: 68 in HT: 173 cm WT: 85 kg WT: 187 lb BMI: 28.4 General: Well developed, well nourished, in no acute distress Eyes: not assessed Ears: not assessed Nose: not addressed Mouth: not assessed Neck: not assessed Lungs: clear to auscultation throughout, no wheezing, no rales. No respiratory distress respiratory rate 18 Cardio: regular rate and rhythm, no murmur Abdomen: not assessed Musculoskeletal: not assessed Extremity: Left lower extremity is edematous from his foot up to his mid kendall area. The appearance of the skin is angelika. Pedal pulses diminished on the left. No cyanosis of the toes or foot. Neurologic: Patient reports numbness and tingling bilaterally in the lower extremities Skin: Bilateral lower extremities are angelika left lower extremity edema noted from foot to mid kendall. Wound on left lower extremity is scabbed in appearance. Area of erythema extends out from the wound bed area and is erythematous, slightly warm and tender with palpation around the wound bed. There is no induration or fluctuance. No active drainage. Mental Status: Alert and oriented x3. Normal mood and affect Assessment/Plan Provider discussed with patient concern for continued use of antibiotics without improvement of his symptoms. Explained to patient the left lower extremity does not appear worse than it was when I saw him on July 23, 2024. Discussed with the patient symptoms related to chronic venous insufficiency which he appears to have. Often this includes swelling, discolored skin and poor wound healing. Explained to him I will get some labs today to check his kidney function in case he would need more antibiotics as well as a CBC to check to see if his white blood cell count is elevated indicating infection. Patient agreeable to this plan. I explained to him I would also send a message to his primary care Dr. Tellez, regarding my concerns that he has not gotten an appointment with wound care and to see if he would like to follow-up with him for his concerns of his left lower extremity. White blood cell count was 6.2 which is within the normal range. Again I am deferring further care to his primary care as a I am wondering if the wound on his left lower extremity is not healing as quickly as hoped due to chronic venous insufficiency. We did apply a dressing over the wound with an Catracho wrap for compression to the left lower extremity to help with swelling. 1. Edema of left lower leg due to peripheral venous insufficiency (I87.2: Venous insufficiency (chronic) (peripheral)) Patient to follow up with primary care provider regarding concerns for left lower extremity infection. This provider had also placed an order for wound care consult on 07/23/2024 but patient has not been seen. Orders: CBC w/ Auto Diff Comprehensive Metabolic Panel eGFR Follow-up With When Contact Information GEOFF DO NIKITAFP, Jamison Campos, VARINDER, PED [address], [place] [address]- Additional Instructions: Patient Education Venous Ulcer, [id number] Chronic Venous Insufficiency Problem List/Past Medical History Ongoing Abrasion of leg Axonal sensorimotor n (more content not included)... Normal [facility] Comment on above: Result Comment: Elec tronically Signed By: Jessica Fitzpatrick\.br\Date and Time Signed: 08/07/24 19:05 EST HEMATOLOGYOrdered By: SYSTEM SYSTEM on 08-07-2024 Basophils/100 WBC (Bld) 1.2 % Normal 0.0 - 2.0 % Remisol Heme Basophils/Leukocyte s Auto (Bld) [Pure # fraction] 0.1 E9/L Normal 0.0 - 0.2 E9/L [facility] Heme Eosinophils (Bld) [#/Vol] 0.1 E9/L Normal 0.0 - 0.5 E9/L [facility]e Eosinophils/100 WBC (Bld) 2.3 % Normal 0.0 - 8.0 % Remisol Heme Erythrocyte distribution width (RBC) [Ratio] 14.7 % High 10.9 - 14.2 % Rem[facility] Heme Hematocrit (Bld) [Volume fraction] 37.8 % Normal 37.7 - 49.0 % [facility]e Hemoglobin (Bld) [Mass/Vol] 13.1 g/dL Low 13.5 - 17.5 gm/dL [facility] Lymphocytes (Bld) [#/Vol] 1.4 E9/L Normal 1.0 - 4.0 E9/L [facility]e Lymphocytes/100 WBC (Bld) 22.8 % Normal 14.0 - 50.0 % Rem[facility] Heme MCH (RBC) [Entitic mass] 32.3 pg Normal 27.0 - 34.0 pg Remisol Heme MCHC (RBC) [Mass/Vol] 34.7 g/dL Normal 31.4 - 36.0 gm/dL [facility]e MCV (RBC) [Entitic vol] 93.1 fL Normal 80.0 - 100.0 fL [facility]e Monocytes (Bld) [#/Vol] 0.8 E9/L Normal 0.2 - 1.0 E9/L Rem[facility] Heme Monocytes/100 WBC (Bld) 13.5 % Normal 4.0 - 14.0 % Remisol Heme Neutrophils (Bld) [#/Vol] 3.7 E9/L Normal 2.0 - 7.5 E9/L [facility] Heme Neutrophils/100 WBC (Bld) 60.2 % Normal 36.0 - 75.0 % Rem[facility] Heme Platelet 252.0 E9/L Normal 150.0 - 500.0 E9/L Rem[facility] Heme Platelet mean volume (Bld) [Entitic vol] 7.2 fL Normal 6.4 - 10.8 fL Remisol Heme RBC (Bld) [#/Vol] 4.1 E12/L Low 4.3 - 5.9 E12/L Re misol Heme WBC corrected for nucl RBC Auto (Bld) [#/Vol] 6.2 E9/L Normal 4.0 - 11.0 E9/L Remisol Heme eGFRon 08-07-2024 eGFR 90 mL/min/1.73 m2 Normal >=59 [facility] Comment on above: Performed By: #### 1 [id number] #### [facility] [address] [place] [address] Ambulatory Visit Summaryon Ambulatory Visit Summary Ambulatory Visit Summary JOSE ROCHA :1940 Visit Date:07/23/2024 Ambulatory Visit Instructions Your Diagnosis Cellulitis of leg Overweight BMI 28.0-28.9,adult These Are Your Goals Hypertension: Maintain blood pressure in therapeutic range - Progressing Interventions: Maintain an active lifestyle - Progressing Monitor Sodium intake - Progressing Monitor blood pressure daily - Progressing Review education booklet - Done Take medications as prescribed - Progressing PAF: Avoid complications Interventions: Monitor for symptoms of complication - Progressing Read education material - Done Take Medications as Prescribed - Progressing Neuropathy: Remain free from injury Interventions: Continue podiatry follow ups as scheduled - Progressing Examine lower extremities - Progressing Take medications as prescribed - Progressing Your Care Team Attending Physician - Lara HOFFMANN, Jessica Primary Care Physician - Jamison TELLEZ DO, FAAFP This Is Your Medications List apixaban (Eliquis 5 mg oral tablet) atorvastatin (Lipitor 20 mg Tab) cephalexin (cephalexin 500 mg Cap) cholecalciferol (Vitamin D3 50 mcg (2000 intl units) oral tablet, chewable) doxycycline (doxycycline hyclate 100 mg Cap) flecainide (flecainide 50 mg Tab) gabapentin (gabapentin 300 mg Cap) losartan (losartan 50 mg Tab) multivitamin with minerals (One A Day Men's Complete) psyllium (Metamucil 3.4 g/5.2 g oral powder) sulfamethoxazole-trimet hoprim (Bactrim D.S. 800 mg-160 mg Tab) tamsulosin (Flomax 0.4 mg Cap) tizanidine (tizanidine 4 mg oral capsule) zolpidem (zolpidem 12.5 mg oral ER Tab) zolpidem (zolpidem 12.5 mg oral ER Tab) Procedures Performed Cardioversion (03/30/2023), Left Total Hip Arthroplasty (02/02/2016), bilateral cataract implants, Carpal tunnel release, Stephany fundoplication, skin cancer removed, stomach surgery, TURP - Transurethral resection of prostate. Discharge Vitals Temperature (Oral) 36.7 ?C Heart Rate (Peripheral) 63 Blood Pressure 100/60 Height 173 cm Height 68 in Weight 85.7 kg Weight 188.54 lb BMI 28.63 What to do next Scheduled Follow-Up Appointments 2024 3:20 PM EST With: Jamison TELLEZ DO, FAAFP Where: [facility] [address], [place] [address]- Monday 1:00 PM EDT With: Where: [facility] [address] [facility], [place] [address]- Medications What How Much When Why Instructions New doxycycline (doxycycline hyclate 100 mg Cap) 1 Capsules By Mouth Every 12 hours Cellulitis of leg Duration: 7 Days with fluids may take with food to minimize abdominal discomfort Pickup at [id number] Unchanged apixaban (Eliquis 5 mg oral tablet) 1 Tablets By Mouth 2 times a day Unchanged atorvastatin (Lipitor 20 mg Tab) 1 Tablets By Mouth Once a day (at bedtime) Unchanged cephalexin (cephalexin 500 mg Cap) 1 Capsules By Mouth 2 times a day TAKE 1 CAPSULE BY MOUTH IN THE MORNING and before bedtime FOR 10 DAYS Unchanged cholecalciferol (Vitamin D3 50 mcg (2000 intl units) oral tablet, chewable) 1 Tablets By Mouth Every day Unchanged flecainide (flecainide 50 mg Tab) 1 Tablets By Mouth Every 12 hours Unchanged gabapentin (gabapentin 300 mg Cap) 1 Capsules By Mouth Every day Unchanged losartan (losartan 50 mg Tab) 1 Tablets By Mouth Every day Unchanged multivitamin with minerals (One A Day Men's Complete) By Mouth Every day Unchanged psyllium (Metamucil 3.4 g/ 5.2 g oral powder) 3.4 Gram By Mouth Every day Unchanged sulfamethoxazole-trimet hoprim (Bactrim D.S. 800 mg-160 mg Tab) 1 Tablets By Mouth 2 times a day Cellulitis of left leg Duration: 10 Days Unchanged tamsulosin (Flomax 0.4 mg Cap) 1 Capsules By Mouth Every day Unchanged tizanidine (tizanidine 4 mg oral capsule) 1 Capsules By Mouth 3 times a day Lumbar spine pain Unchanged zolpidem (zolpidem 12.5 mg oral ER Tab) 1 Tablets Unchanged zolpidem (zolpidem 12.5 mg oral ER Tab) 1 Tablets By Mouth Once a day (at bedtime) as needed for for sleep Anxiety, generalized Insomnia 30 day supply Pharmacy Information [id number]: [address] [place], [place] [id number] [phone] Allergies No Known Allergies Problems Ongoing - Any problem that you are currently receiving treatment for. Abrasion of leg Axonal sensorimotor neuropathy Basal cell carcinoma BMI 28.0-28.9,adult BPH associated with nocturia Cellulitis of left leg Cervicalgia Chronic constipation Chronic insomnia COVID-19 ruled out by laboratory testing DDD (degenerative disc disease), cervical Dyshidrotic eczema Edema of both lower legs due to peripheral venous insufficiency Edema of left lower leg Enthesopathy of right shoulder Familial hypercholesterolemia Gouty arthritis of right hand Hypertension Idiopathic sma (more content not included)... Normal [facility] Family Medicine Office/Clini c Noteon 07-23-2024 Family Medicine Office/Clinic Note Family Medicine Office/Clinic Note Chief Complaint left lower leg wound w/ swelling, redness, HPI Staff 83 year old male presents with left leg pain/swelling, redness, onset- 2 weeks OTC- dr. calixto- prescribed a big red pill, geoff gave another prescription History of Present Illness I have reviewed and verified the staff HPI to be accurate for this encounter. Portions of this record have been created with voice recognition software. Occasional wrong-word or ?[id number]-a-[id number]? substitutions may have occurred due to the inherent limitations of voice recognition software. 83-year-old male presents with his today for evaluation of his left lower extremity. He states he initially bumped it in the shower like a skin tear but then developed an infection. He explains he was visiting the collection technician, Dr. Calixto for toenail trimming a couple weeks ago who put him on Keflex due to the infection in that left lower extremity. He did follow-up with his primary care Dr. Tellez on July 15 who ordered a scan to check for DVT as well as put him on Bactrim DS for his infection in that right lower extremity. He is concerned because is not getting better. There is still redness and slight amount of warmth and swelling of that left lower extremity. He has now completed both courses of antibiotics. He denies any fever or chills. He denies any drainage states Dr. Calixto did try to get some drainage out but only got blood. He has been keeping the right lower extremity clean and dry. Discussed possible wound care consult and he was agreeable to that stating he has been seen at [facility] wound care in the past. Review of Systems PHQ Score Initial Depression Screen Score: 0 SCORE ROS negative unless otherwise stated in HPI. Physical Exam Vitals & Measurements T: 36.7 ?C(Oral) HR: 63(Peripheral) BP: 100/60 SpO2: 98% HT: 68 in HT: 173 cm WT: 85.7 kg WT: 188.54 lb BMI: 28.63 General: Well developed, well nourished, in no acute distress Eyes: not assessed Ears: not assessed Nose: not addressed Mouth: not assessed Neck: not assessed Lungs: clear to auscultation throughout, no wheezing, no rales. No respiratory distress respiratory rate 18 Cardio: regular rate and rhythm, no murmur Abdomen: not assessed Musculoskeletal: not assessed Extremity: not assessed Neurologic: not assessed Skin: Right lower extremity appears normal- skin of left lower extremity is erythematous mildly edematous with a scabbed area over the kendall approximately 3 x 3.5 cm in size. The erythema extends out about 3 cm proximally and distally down to the ankle area. No areas of fluctuance or induration. Mental Status: Alert and oriented x3. Normal mood and affect Assessment/Plan Provider reviewed previous documentation for the issue of cellulitis of the LLE. Venous duplex done on July 15 which was negative for DVT. Has already been on full course of Bactrim DS and Keflex for the infection. We will refer him to wound care at [facility], where he has been seen in the past. Explained he may need the scabbed area debrided off for continued healing. We will also have him take doxycycline 100 mg PO BID for 7 days to see if the infection improves. We cassandra lines around the redness of the wound so they could monitor for any increase in the erythema of the wound. Encourage patient to keep the area clean and dry and elevate left lower extremity when resting. Patient and verbalized understanding and agreement with this plan. 1. Cellulitis of leg (L03.119: Cellulitis of unspecified part of limb) Doxycycline 100 mg twice daily x 7 days. Instructed to keep the leg clean and dry. Monitor for worsening of the erythema, pain, drainage or fever. Will refer to wound care clinic at [facility] patient has been seen in the past. Ordered: doxycycline, 100 mg = 1 cap(s), Oral, q12hr, with fluids may take with food to minimize abdominal discomfort, X 7 day(s), # 14 cap(s), Refills(s) 0, Pharmacy: [id number], 173, cm, 07/23/24 9:42:00 EDT, Height/Length Dosing, 85.7, kg, 07/23/24 9:42... [facility] Internal Ambulatory Referral 2. Overweight (E66.3: Overweight) Encouraged healthy diet and exercise. 3. BMI 28.0-28.9,adult (Z68.28: Body mass index [BMI] 28.0-28.9, adult) The standard range for ages 18 and older is >=18.5 and < 25 kg/m2. Your BMI today was above this range, this falls in the overweight to obese category and there are medical benefits to weight loss. We can offer counselling, referral, and/or medical support in addressing this problem. Your BMI and weight management will be followed at subsequent visits. Ordered: Body Mass Index (BMI) documented 3008F Current tobacco non-user 1036F Depression Screening Negative 3352F Influenza immunization status assessed 1030F Most recent diastolic blood pressure <80 mm Hg 3078F Patient screen for fall risk: no falls in last year or 1 fall with no injury in last year 1101F Pneumococcus immunization status assessed (more content not included)... Normal [facility] Comment on above: Result Comment: Elec tronically Signed By: Jessica Fitzpatrick\.br\Date and Time Signed: 07/23/24 13:03 EDT Ambulatory Visit Summaryon 1 Ambulatory Visit Summary Ambulatory Visit Summary JOSE ROCHA :1940 Visit Date:07/15/2024 Ambulatory Visit Instructions Your Diagnosis Annual visit for general adult medical examination without abnormal findings PAF (paroxysmal atrial fibrillation) Tortuous aorta Hypertension Familial hypercholesterolemia Overweight These Are Your Goals Hypertension: Maintain blood pressure in therapeutic range - Progressing Interventions: Maintain an active lifestyle - Progressing Monitor Sodium intake - Progressing Monitor blood pressure daily - Progressing Review education booklet - Done Take medications as prescribed - Progressing PAF: Avoid complications Interventions: Monitor for symptoms of complication - Progressing Read education material - Done Take Medications as Prescribed - Progressing Neuropathy: Remain free from injury Interventions: Continue podiatry follow ups as scheduled - Progressing Examine lower extremities - Progressing Take medications as prescribed - Progressing Your Care Team Attending Physician - Jamison TELLEZ DO, FAAFP Primary Care Physician - Jamison TELLEZ DO, FAAFP This Is Your Medications List apixaban (Eliquis 5 mg oral tablet) atorvastatin (Lipitor 20 mg Tab) cephalexin (cephalexin 500 mg Cap) cholecalciferol (Vitamin D3 50 mcg (2000 intl units) oral tablet, chewable) flecainide (flecainide 50 mg Tab) gabapentin (gabapentin 300 mg Cap) losartan (losartan 50 mg Tab) multivitamin with minerals (One A Day Men's Complete) psyllium (Metamucil 3.4 g/5.2 g oral powder) tamsulosin (Flomax 0.4 mg Cap) tizanidine (tizanidine 4 mg oral capsule) zolpidem (zolpidem 12.5 mg oral ER Tab) Procedures Performed Cardioversion (03/30/2023), Left Total Hip Arthroplasty (02/02/2016), bilateral cataract implants, Carpal tunnel release, Stephany fundoplication, skin cancer removed, stomach surgery, TURP - Transurethral resection of prostate. Discharge Vitals Heart Rate (Peripheral) 68 Respiratory Rate 16 Blood Pressure 108/64 Height 173 cm Height 68 in Weight 86 kg Weight 189.2 lb BMI 28.73 What to do next Scheduled Follow-Up Appointments Monday 1:00 PM EDT Where: [facility] [address], [place] [address]- Medications What How Much When Why Instructions Unchanged apixaban (Eliquis 5 mg oral tablet) 1 Tablets By Mouth 2 times a day Unchanged atorvastatin (Lipitor 20 mg Tab) 1 Tablets By Mouth Once a day (at bedtime) Unchanged cephalexin (cephalexin 500 mg Cap) 1 Capsules By Mouth 2 times a day TAKE 1 CAPSULE BY MOUTH IN THE MORNING and before bedtime FOR 10 DAYS Unchanged cholecalciferol (Vitamin D3 50 mcg (2000 intl units) oral tablet, chewable) 1 Tablets By Mouth Every day Unchanged flecainide (flecainide 50 mg Tab) 1 Tablets By Mouth Every 12 hours Unchanged gabapentin (gabapentin 300 mg Cap) 1 Capsules By Mouth Every day Unchanged losartan (losartan 50 mg Tab) 1 Tablets By Mouth Every day Unchanged multivitamin with minerals (One A Day Men's Complete) By Mouth Every day Unchanged psyllium (Metamucil 3.4 g/ 5.2 g oral powder) 3.4 Gram By Mouth Every day Unchanged tamsulosin (Flomax 0.4 mg Cap) 1 Capsules By Mouth Every day Unchanged tizanidine (tizanidine 4 mg oral capsule) 1 Capsules By Mouth 3 times a day Lumbar spine pain Unchanged zolpidem (zolpidem 12.5 mg oral ER Tab) 1 Tablets By Mouth Once a day (at bedtime) as needed for for sleep Anxiety, generalized Insomnia 30 day supply Allergies No Known Allergies Problems Ongoing - Any problem that you are currently receiving treatment for. 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 Atrial fibrillation BMI 25.0-25.9,adult BPH BPH without urinary obstruction Bruise Cervical pain Cervical stenosis of spine Constipation COVID-19 Ecchymoses, spontaneous Fall as cause of accidental injury at home as place of occurrence Fracture in accidental fall Head injury witho (more content not included)... [facility] Family Medicine Office/Clini c Noteon 07-17-2024 Family Medicine Office/Clinic Note Family Medicine Office/Clinic Note Chief Complaint Medicare Wellness Visit Review of Systems PHQ Score Initial Depression Screen Score: 0 SCORE Physical Exam Vitals & Measurements HR: 68(Peripheral) RR: 16 BP: 108/64 SpO2: 94% HT: 173 cm HT: 68 in WT: 86 kg WT: 189.2 lb BMI: 28.73 Assessment/Plan 1. Annual visit for general adult medical examination without abnormal findings (Z00.00: Encounter for general adult medical examination without abnormal findings) Discussed all the current AHRQ USPSTF?s recommendations for preventative services and all current CDC recommended immunizations, relevant risk recommendations and the following patient brochures were given. Reviewed Medicare Prevention Services checklist. CDC-Falls Prevention and home safety screening reviewed. Patient denies any falls in last 12 months, voices no worry about falling. Exhibits no problems with sitting, standing or ambulation. Patient aware with keeping walk way area free of clutter to prevent tripping and/or falling. [place] Advance Directives reviewed. Documents remain at home/collections attorney's office, encouraged to bring in for scanning into chart. Patient denies any problems with ADL?s and Instrumental ADL?s. Cognitive screening completed with memory and clock face drawing. No deficits noted. Immunization record reviewed, discussed Shingrix vaccine with educational handout and availability. COVID vaccines have been administered, with Boosters received. Allergies and medications reviewed and up to date. No concerns with taking medication as prescribed. Reviewed OTC medications, medication list up to date. Blood tests were reviewed: Discussed what tests need to be updated. Will discuss further with PCP at scheduled office visit today. No concerns with bowel/ bladder. Colonoscopy: Aged out. Reviewed pain symptoms : denies pain. Reviewed all outside providers that patient follows. Last visit summary notes available in chart and/or have been requested. Patient declines any signs or symptoms of depression at this time. 8 minutes spent with screening and documentation. PHQ2 screening score 0. Patient denies alcohol use, denies concerns. 8 minutes spent with screening and documentation. Audit score 0. Follow up scheduled with PCP, today. AWV has been scheduled, 07/15/25. 2. PAF (paroxysmal atrial fibrillation) (I48.0: Paroxysmal atrial fibrillation) Follows Coding Spec, Dr. Turner every 6 months. Denies SOB, chest pain or irregular heart rhythm. Manages medications, Eliquis and Flecainide with office visits. Cardiac-/DASH nutritional education handout reviewed with patient and provided. Tries following healthy dietary intake. Last visit office notes requested. 3. 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 Follows with Cardiology, Dr. Turner, every 6 months. 4. Hypertension (I10: Essential (primary) hypertension) Patient taking medications daily as directed, BP monitored at home with <140/90 results. Patient does voice understanding with signs and symptoms to monitor for. HTN stoplight handout reviewed with importance of keeping BP <140/90 to prevent increased cardiovascular risks. DASH dietary handout reviewed with importance to lower salt intake, eat more chicken, fish and lean white meats. 5. Familial hypercholesterolemia (E78.01: Familial hypercholesterolemia) Patient encouraged to eat a diet that is low in saturated fats. Stressed importance of losing weight as being overweight does produce more lipids. Monitor alcohol intake and avoid smoking. Risks may also increase with a family history of hyperlipidemia. Patient voices understanding with healthy dietary choices to reduce risk factors associated with CVA. Taking statin medication daily. Will continue to follow up with labs as directed. 6. Overweight (E66.3: Overweight) A combination of diet and exercise can help you lose weight. Discussed weight loss benefits to dietary management and overall health with increased cardiovascular risks associated with waist measurement female>35 men>40. Reminded of importance to work on lowering current body weight with healthy dietary intake choices and portion control. Reviewed goals and patients readiness with needing to make a lifestyle change. Will work on increasing daily activity to prevent further weight gain. Will continue to monitor during office visits with progress. Follow-up No qualifying data available Problem List/Past Medical History Ongoing Axonal sensorimotor neuropathy Basal cell carcinoma BMI 28.0-28.9,adult BPH associated with nocturia Cervicalgia Chronic constipation Chronic insomnia COVID-19 ruled out by laboratory testing DDD (degenerative disc disease), cervical Dyshidrotic eczema Edema of both lower legs due to peripheral venous insufficiency Enthesopathy of right shoulder Familial hypercholesterolemia Gouty arthritis of right hand Hypertension Idiopathic small fiber sensory neuropa (more content not included)... [facility] Comment on above: Result Comment: Elec tronically Signed By: Jamison TELLEZ DO, FAAFP\.br\Date and Time Signed: 07/17/24 17:08 EDT\.br\Electronically Co-Signed By: Evelia Montanez LPN\Date and Time Co-Signed: 07/15/24 15:40 EDT US Lower Extremity Venous Du plex Lefton 07-16-2024 US Lower Extremity Venous Duplex Left Exam Date/Time: 07/15/2024 18:01 EDT Reason for Exam: R60.0;Edema Report IMPRESSION: NO LEFT LOWER EXTREMITY DVT IDENTIFIED. EXAM: US Lower Extremity Venous Duplex Left DATE: 07/15/2024 5:39 PM CLINICAL HISTORY: Edema, R60.0. COMPARISON: 01/05/2023. TECHNIQUE: Grayscale, compression, color and waveform Doppler analysis of the left lower extremity venous systems was performed with augmentation. Spectral Doppler waveforms were evaluated for spontaneity, phasicity and appropriate augmentation. FINDINGS: There is no deep or superficial venous thrombosis, abnormal masses, organized fluid collections, or other findings of concern identified within the left lower extremity. No DVT present within the visualized right common femoral vein. Ordering Provider: Jamison TELLEZ FINAL REPORT Dictated: 07/16/2024 7:06 am Alexandru Kumar MD Signed (Electronic Signature): 07/16/2024 7:06 am Signed by: Alexandru Kumar MD Transcribed by: ALEJANDRINA Technologist: PATRICIA Quach [facility] Ambulatory Visit Summaryon 1 Ambulatory Visit Summary Ambulatory Visit Summary JOSE ROCHA :1940 Visit Date:07/15/2024 Ambulatory Visit Instructions Your Diagnosis PAF (paroxysmal atrial fibrillation) BMI 28.0-28.9,adult Overweight Hypertension Idiopathic small fiber sensory neuropathy Familial hypercholesterolemia BPH associated with nocturia Left lumbar radiculitis Tortuous aorta Enthesopathy of right shoulder Abrasion of leg Edema of left lower leg Cellulitis of left leg Nocturia These Are Your Goals Hypertension: Maintain blood pressure in therapeutic range - Progressing Interventions: Maintain an active lifestyle - Progressing Monitor Sodium intake - Progressing Monitor blood pressure daily - Progressing Review education booklet - Done Take medications as prescribed - Progressing PAF: Avoid complications - Progressing Interventions: Monitor for symptoms of complication - Progressing Read education material - Done Take Medications as Prescribed - Progressing Neuropathy: Remain free from injury - Progressing Interventions: Continue podiatry follow ups as scheduled - Progressing Examine lower extremities - Progressing Take medications as prescribed - Progressing Your Care Team Attending Physician - Jamison TELLEZ DO, FAAFP Primary Care Physician - Jamison TELLEZ DO, FAAFP This Is Your Medications List sulfamethoxazole-trimet hoprim (Bactrim D.S. 800 mg-160 mg Tab) Contact prescribing physician if questions or concerns apixaban (Eliquis 5 mg oral tablet) atorvastatin (Lipitor 20 mg Tab) cephalexin (cephalexin 500 mg Cap) cholecalciferol (Vitamin D3 50 mcg (2000 intl units) oral tablet, chewable) flecainide (flecainide 50 mg Tab) gabapentin (gabapentin 300 mg Cap) losartan (losartan 50 mg Tab) multivitamin with minerals (One A Day Men's Complete) psyllium (Metamucil 3.4 g/5.2 g oral powder) tamsulosin (Flomax 0.4 mg Cap) tizanidine (tizanidine 4 mg oral capsule) zolpidem (zolpidem 12.5 mg oral ER Tab) Procedures Performed Cardioversion (03/30/2023), Left Total Hip Arthroplasty (02/02/2016), bilateral cataract implants, Carpal tunnel release, Stephany fundoplication, skin cancer removed, stomach surgery, TURP - Transurethral resection of prostate. Discharge Vitals Temperature (Oral) 37.0 ?C Heart Rate (Peripheral) 68 Respiratory Rate 16 Blood Pressure 108/64 Height 173 cm Height 68 in Weight 86 kg Weight 189.2 lb BMI 28.73 What to do next Scheduled Follow-Up Appointments 2024 3:20 PM EST With: Jamison TELLEZ DO, FAAFP Where: [facility] [address], [facility] [address]- Monday 1:00 PM EDT With: Where: [facility] [address], [place] [address]- You Need to Schedule the Following Appointments Follow Up with Jamison TELLEZ DO, FAAFP, FAM, PED When: In 3 months Where: [address], [place] [address]- Follow Up with GEOFF PINTO FAAFP, Jamison Campos, FAM, PED When: In 3 months Where: [address], [place] [address]- You Need to Complete the Following US Lower Extremity Venous Duplex Left, 07/15/24, Stat, Order for future visit, Transport Mode: Ambulatory, Reason: Edema, No, Edema of left lower leg, call results, pp_set_radiology_subspe cialty, Not Required, [facility] Medications What How Much When Why Instructions New sulfamethoxazole-trimet hoprim (Bactrim D.S. 800 mg-160 mg Tab) 1 Tablets By Mouth 2 times a day Cellulitis of left leg Duration: 10 Days Pickup at [facility] Unchanged apixaban (Eliquis 5 mg oral tablet) 1 Tablets By Mouth 2 times a day Contact prescribing physician if questions or concerns Unchanged atorvastatin (Lipitor 20 mg Tab) 1 Tablets By Mouth Once a day (at bedtime) Contact prescribing physician if questions or concerns Unchanged cephalexin (cephalexin 500 mg Cap) 1 Capsules By Mouth 2 times a day TAKE 1 CAPSULE BY MOUTH IN THE MORNING and before bedtime FOR 10 DAYS Contact prescribing physician if questions or concerns Unchanged cholecalciferol (Vitamin D3 50 mcg (2000 intl units) oral tablet, chewable) 1 Tablets By Mouth Every day Contact prescribing physician if questions or concerns Unchanged flecainide (flecainide 50 mg Tab) 1 Tablets By Mouth Every 12 hours Contact prescribing physician if questions or concerns Unchanged gabapentin (gabapentin 300 mg Cap) 1 Capsules By Mouth Every day Contact prescribing physician if questions or concerns Unchanged losartan (losartan 50 mg Tab) 1 Tablets By Mouth Every day Contact prescribing physician if questions or concerns Unchanged multivitamin with minerals (One A Day Men's Complete) By Mouth Every day Contact prescribing physician if questions or concerns Unchanged psyllium (Metamucil 3.4 g/ 5.2 g oral powder) 3.4 Gram By Mouth Every da (more content not included)... [facility] Family Medicine Office/Clini c Noteon 07-15-2024 Family Medicine Office/Clinic Note Family Medicine Office/Clinic Note Chief Complaint Patient here for 4 month f/u on htn, chol, insomnia, paf History of Present Illness Here for follow up Have you had any ER visits or any hospitalizations since last visit? no Are you compliant with your medications and no difficulty affording your medications? yes Do you have side effects from the medication? no Are you compliant with your diet? yes Do you exercise? yes Do you have any of the following symptoms? Chest pain? no Palpitations? no MATTHEWS/SOB? no Orthopnea? no PND? no Edema? no Have you had any recent cardiopulmonary testing? no Review of Systems PHQ Score Initial Depression Screen Score: 0 SCORE ROS - Provider Constitutional: no fever, no chills, no sweats, no weakness. Skin: no Jaundice, no rash, no lesions, no petechiae. ENMT: no ear pain, no sore throat, no congestion, no hoarseness. Respiratory: no shortness of breath, no cough, no orthopnea, no wheezing. Cardiovascular: no chest pain, no palpitations, no edema. Gastrointestinal: no nausea, no vomiting, no diarrhea, no GI bleeding.no constipationnoheartburn Genitourinary: no dysuria, no hematuria, no discharge, no pain.nofreq/urgency Musculoskeletal: no back pain, no trauma.nojoint pain Neurologic: no headache, no dizziness, no numbness, no weakness. Psychiatric: no sleeping problems, no irritability, no mood swings/depression. Heme/Lymph: no bleeding tendency, no bruising tendency, no petechiae, no swollen lymph nodes no Allergy/Imunology no seasonal allergies, no food allergies, no recurrent infections, no impaired immunity. Additional ROS info: Except as noted in the above Review of Systems and in the History of Present Illness all other systems have been reviewed and are negative or noncontributory. Physical Exam Vitals & Measurements T: 37.0 ?C(Oral) HR: 68(Peripheral) RR: 16 BP: 108/64 SpO2: 94% HT: 68 in HT: 173 cm WT: 86 kg WT: 189.2 lb BMI: 28.73 General: Well developed, well nourished, in no acute distress Mouth: Mucous membranes moist. Normal oropharynx, and posterior pharynx without lesions or exudates. Tongue normal Neck: Neck supple. No masses or palpable cervical nodes. Trachea midline. Thyroid without nodules, masses, tenderness, or enlargement Lungs: Normal respiratory effort and clear to auscultation Cardio: Regular rate and rhythm, normal S1 and S2, no murmur, no rub Abdomen: Soft, non-distended, non-tender. no G/R/S/Masses Musculoskeletal: No deformity or scoliosis noted. Normal range of motion. Joints normal. No erythema, edema, effusion, or ecchymosis Extremity: No clubbing, cyanosis, edema, or deformity, with normal ROM in both upper and lower bilateral extremities Neurologic: Grossly normal Skin: No rashes, ulcerations, or suspicious lesions Mental Status: Alert and oriented x3. Normal mood and affect Assessment/Plan 1. PAF (paroxysmal atrial fibrillation) (I48.0: Paroxysmal atrial fibrillation) Eliquis 5 mg p.o. twice daily along with flecainide 50 mg p.o. every 12, currently in normal sinus and doing well. Also continue losartan 50 mg p.o. daily Ordered: Medicare Subsequent Visit G0439 2. BMI 28.0-28.9,adult (Z68.28: Body mass index [BMI] 28.0-28.9, adult) The standard range for ages 18 and older is >=18.5 and < 25 kg/m2. Your BMI today was above this range, this falls in the overweight to obese category and there are medical benefits to weight loss. We can offer counselling, referral, and/or medical support in addressing this problem. Your BMI and weight management will be followed at subsequent visits. 3. Overweight (E66.3: Overweight) Diet and exercise a BMI goal of 25 Ordered: Medicare Subsequent Visit G0439 4. Hypertension (I10: Essential (primary) hypertension) Good control with diet exercise, he does mow his own lawn along with losartan 50 mg p.o. daily Ordered: Medicare Subsequent Visit G0439 5. 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 Familial hypercholesterolemia (E78.01: Familial hypercholesterolemia) Lipitor with surveillance Chem-7's will recommend co-Q10 Ordered: Medicare Subsequent Visit G0439 7. BPH associated with nocturia (N40.1: Benign prostatic hyperplasia with lower urinary tract symptoms) Tamsulosin 0.4 mg p.o. daily stable 8. Left lumbar radiculitis (M54.16: Radiculopathy, lumbar region) Inactive with good diet and exercise 9. 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 nightly follow clinically Ordered: Medicare Subsequent Visit G0439 10. Enthesopathy of right shoulder (M77.8: Other enthesopathies, not elsewhere classified) Dr Parr's following, PT not help. 11. Abrasion of leg (S80.819A: Abrasion, unspecified lower leg, initial encounter) Superficial half-carver shape skin abrasion approximate (more content not included)... [facility] Comment on above: Result Comment: Elec tronically Signed By: Jamison TELLEZ DO, FAAFP\.br\Date and Time Signed: 07/15/24 16:28 EDT [facility] 07-09-20 [facility] Case Information Case Priority: None Programs: -- Referral Source: [employer] Referral Reason: Care coordination Case Type: Chronic Care Management Risk Score: -- Case Status: Active (June 23, 2022) Date Assigned: June 16, 2022 Assigned By: Jossy Francis RN Date Enrolled: June 23, 2022 Assigned Primary Personnel: Jossy Francis RN Assigned Secondary Personnel: -- Case Physician: Jamison TELLEZ DO, FAAFP Problems Ongoing Axonal sensorimotor neuropathy Basal cell carcinoma BPH associated with nocturia BPH without urinary obstruction Cervicalgia Chronic constipation Chronic insomnia COVID-19 COVID-19 ruled out by laboratory testing DDD (degenerative disc disease), cervical Dyshidrotic eczema Edema of both lower legs due to peripheral venous insufficiency Enthesopathy of right shoulder Familial hypercholesterolemia Gouty arthritis of right hand Hypertension Idiopathic small fiber sensory neuropathy Impingement of left shoulder Left lumbar radiculitis Lumbar spine pain 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 Non-smoker Osteoarthritis of both hands PAF (paroxysmal atrial fibrillation) Peyronie's disease Right shoulder pain Screening PSA (prostate specific antigen) Seasonal allergies Seborrheic keratosis Senile ecchymosis Syncope Tortuous aorta Wheezing Historical Atrial fibrillation BMI 25.0-25.9,adult BPH Bruise Cervical pain Cervical stenosis of spine Constipation Ecchymoses, spontaneous Fall as cause of accidental injury at home as place of occurrence Fracture in accidental fall Head injury without concussion or intracranial hemorrhage Hemorrhoids Hereditary sensory and autonomic neuropathy Indigestion Insomnia Left leg cellulitis Lumbar radiculitis Malaise and fatigue Musculoskeletal chest pain Neck pain Obstipation Over weight Rib pain on left side Right knee DJD Right wrist pain Scalp abrasion Skin cancer Skin tear of upper extremity Sleep apnea Sore throat Sternal fracture Tic douloureux Tingling Trigeminal neuralgia Urinary retention Procedure/Surgical History Cardioversion (03/30/2023), Left Total Hip Arthroplasty (02/02/2016), bilateral cataract implants, Carpal tunnel release, Stephany fundoplication, skin cancer removed, stomach surgery, TURP - Transurethral resection of prostate. Home Medications Eliquis 5 mg oral tablet, 5 mg= 1 tab(s), Oral, BID flecainide 50 mg Tab, 50 mg= 1 tab(s), Oral, q12hr Flomax 0.4 mg Cap, 0.4 mg= 1 cap(s), Oral, Daily, 3 refills gabapentin 300 mg Cap, 300 mg= 1 cap(s), Oral, Daily Lipitor 20 mg Tab, 20 mg= 1 tab(s), Oral, Once a day (at bedtime), 3 refills losartan 50 mg Tab, 50 mg= 1 tab(s), Oral, Daily Metamucil 3.4 g/5.2 g oral powder, 3.4 gm, Oral, Daily One A Day Men's Complete, Oral, Daily tizanidine 4 mg oral capsule, 4 mg= 1 cap(s), Oral, TID triamcinolone Top 0.1% Crm 15 gram, See Instructions, 1 refills Vitamin D3 50 mcg (2000 intl units) oral tablet, chewable, 50 mcg= 1 tab(s), Oral, Daily zolpidem 12.5 mg oral ER Tab, 12.5 mg= 1 tab(s), Oral, Once a day (at bedtime), PRN, 5 refills Allergies No Known Allergies Social History Alcohol - Denies Alcohol Use, 07/12/2012 Substance Abuse - Denies Substance Abuse, 07/12/2012 Tobacco - Denies Tobacco Use, 07/12/2012 Never (less than 100 in lifetime) Tobacco Use:. Never Smokeless Tobacco Use:., 04/13/2024 Family History Acute myocardial infarction: Father. Alzheimer's disease: Sister. Kidney disease: Mother. Screenings and Assessments 07/11/22 13:04:00 Result Name Value Comment Phone Call Monitoring Consent Agreed to continue call Phone Verification Patient Information Full name, street address and date of verified CM Program Enrollment Provides verbal consent for enrollment CCM Program Enrollment Verbally agreed to receive CCM services CCM Written Consent Written consent obtained CCM Verbal Consent By Self 06/23/22 11:00:00 Result Name Value Comment HIPPA Verified Type of Contact Telephone Information Given by Self CM Preferred Spoken Language Georgian CM Preferred Written Language Georgian Preferred Communication Mode Verbal Ability to Read/Write Able to read, Able to write Appointment Reminders Phone Preferred Way to Send PHI Standard mail Able to Read Georgian Able to read Georgian Learning Style Pref Patient Printed materials Teaching Method Printed materials Barriers to Learning None evident Best Time to Visit or Contact 1-5 pm Best Day to Visit or Contact No preference (more content not included)... [facility] Ambulatory Visit Summaryon 0 05-31-2024 Ambulatory Visit Summary Ambulatory Visit Summary JOSE ROCHA :1940 Visit Date:05/31/2024 Ambulatory Visit Instructions Your Diagnosis COVID These Are Your Goals Hypertension: Maintain blood pressure in therapeutic range - Progressing Interventions: Maintain an active lifestyle - Progressing Monitor Sodium intake - Progressing Monitor blood pressure daily - Progressing Review education booklet - Done Take medications as prescribed - Progressing PAF: Avoid complications Interventions: Monitor for symptoms of complication - Progressing Read education material - Done Take Medications as Prescribed - Progressing Neuropathy: Remain free from injury Interventions: Continue podiatry follow ups as scheduled - Progressing Examine lower extremities - Progressing Take medications as prescribed - Progressing Your Care Team Attending Physician - BENJY RAMIREZ, JUANA Primary Care Physician - Jamison TELLEZ DO, FAAFP This Is Your Medications List apixaban (Eliquis 5 mg oral tablet) atorvastatin (Lipitor 20 mg Tab) cholecalciferol (Vitamin D3 50 mcg (2000 intl units) oral tablet, chewable) flecainide (flecainide 50 mg Tab) gabapentin (gabapentin 300 mg Cap) losartan (losartan 50 mg Tab) multivitamin with minerals (One A Day Men's Complete) psyllium (Metamucil 3.4 g/5.2 g oral powder) tamsulosin (Flomax 0.4 mg Cap) tizanidine (tizanidine 4 mg oral capsule) triamcinolone topical (triamcinolone Top 0.1% Crm 15 gram) zolpidem (zolpidem 12.5 mg oral ER Tab) Procedures Performed Cardioversion (03/30/2023), Left Total Hip Arthroplasty (02/02/2016), bilateral cataract implants, Carpal tunnel release, Stephany fundoplication, skin cancer removed, stomach surgery, TURP - Transurethral resection of prostate. Discharge Vitals Temperature (Oral) 37.0 ?C Heart Rate (Peripheral) 60 Blood Pressure 110/64 Height 178 cm Height 70 in Weight 85.5 kg Weight 188.1 lb BMI 26.99 What to do next Scheduled Follow-Up Appointments Monday 2:30 PM EDT With: Where: [facility] [address] [place] [address]- Monday 2:40 PM EDT With: Jamison TELLEZ DO, FAAFP Where: [facility] [address] [facility], [place] [address]- Medications What How Much When Why Instructions Unchanged apixaban (Eliquis 5 mg oral tablet) 1 Tablets By Mouth 2 times a day Unchanged atorvastatin (Lipitor 20 mg Tab) 1 Tablets By Mouth Once a day (at bedtime) Unchanged cholecalciferol (Vitamin D3 50 mcg (2000 intl units) oral tablet, chewable) 1 Tablets By Mouth Every day Unchanged flecainide (flecainide 50 mg Tab) 1 Tablets By Mouth Every 12 hours Unchanged gabapentin (gabapentin 300 mg Cap) 1 Capsules By Mouth Every day Unchanged losartan (losartan 50 mg Tab) 1 Tablets By Mouth Every day Unchanged multivitamin with minerals (One A Day Men's Complete) By Mouth Every day Unchanged psyllium (Metamucil 3.4 g/ 5.2 g oral powder) 3.4 Gram By Mouth Every day Unchanged tamsulosin (Flomax 0.4 mg Cap) 1 Capsules By Mouth Every day Unchanged tizanidine (tizanidine 4 mg oral capsule) 1 Capsules By Mouth 3 times a day Lumbar spine pain Unchanged triamcinolone topical (triamcinolone Top 0.1% Crm 15 gram) See instructions Topical BID topically twice daily as needed for itching, red, scaly areas Unchanged zolpidem (zolpidem 12.5 mg oral ER Tab) 1 Tablets By Mouth Once a day (at bedtime) as needed for for sleep Anxiety, generalized Insomnia 30 day supply Allergies No Known Allergies Problems Ongoing - Any problem that you are currently receiving treatment for. 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 Atrial fibrillation BMI 25.0-25.9,adult BPH Bruise Cervical pain Cervical stenosis of spine Constipation Ecchymoses, spontaneous Fall as cause of accidental injury at home as place of occurrence Fracture in accidental fall (more content not included)... [facility] Family Medicine Office/Clini c Noteon 05-31-2024 Family Medicine Office/Clinic Note Family Medicine Office/Clinic Note Chief Complaint recheck covid HPI Staff Jose is a 83 year old male here for covid recheck. patient tested covid + previously denies any current complaints History of Present Illness Reviewed and agree with above documented HPI by pediatrician/medical doctor. Portions of this record may have been created with voice recognition artificial intelligence software, specifically [employer], [employer] and or [employer]. Substitutions may have occurred due to the inherent limitations of voice recognition and artificial intelligence software. Patient is a 83-year-old male who present [facility], for a rule out of COVID-19, patient states he was positive for COVID-19 on May 15, and the , states he taken a home test that was negative, prefers to be tested to [facility], states she is feeling much better, states she has been able to eat and drink, has a sense of taste and smell intact, send no symptoms, states his was positive for COVID-19 at the same time and she is doing well, patient denies having any headache, dizziness, fevers, chills, nausea or vomiting, sore throat, cough, chest pain, shortness of breath, weakness. Review of Systems PHQ Score Initial Depression Screen Score: 0 SCORE Physical Exam Vitals & Measurements T: 37.0 ?C(Oral) HR: 60(Peripheral) BP: 110/64 SpO2: 96% HT: 70 in HT: 178 cm WT: 85.5 kg WT: 188.1 lb BMI: 26.99 General: Well developed, well nourished, in no acute distress. Patient does not appear ill or septic. No respiratory distress. Patient answers questions appropriately and in complete sentences, and follow commands appropriately. Head: Normocephalic/atraumati c. No respiratory infections. Neck: Neck supple. No masses or palpable cervical nodes. Chest: No chest wall deformity, no chest wall tenderness Lungs: Normal respiratory effort and clear to auscultation throughout. Cardio: regular rate and rhythm, no murmur Pulses: Normal capillary refill Musculoskeletal: Patient is able to move all 4 extremities equally without any pain or weakness. Neurologic: Grossly normal Skin: No rashes, ulcerations, or suspicious lesions Lymph Nodes: no lad Mental Status: alert, active Assessment/Plan Swab for COVID-19, and no other swabs, breathing treatment, or chest imaging were indicated at this time. Discuss with patient he is negative for COVID-19 virus infection. 83-year-old male presents to [facility], for rule out of COVID-19 viral infection, has been positive during the time of this month, he was asymptomatic, did not appear ill or septic, respiratory distress, difficulty swallowing, cough, chest pain, shortness of breath, fatigue. Patient instructed to continue taking his home medications as previously prescribed, drink plenty water stay hydrated, and follow-up with primary care provider as needed. 1. COVID-19 ruled out by laboratory testing (Z20.822: Contact with and (suspected) exposure to COVID-19) See above 2. BMI 26.0-26.9,adult (Z68.26: Body mass index [BMI] 26.0-26.9, adult) The standard range for ages 18 and older is >=18.5 and < 25 kg/m2. Your BMI today was above this range, this falls in the overweight to obese category and there are medical benefits to weight loss. We can offer counselling, referral, and/or medical support in addressing this problem. Your BMI and weight management will be followed at subsequent visits. Orders: Rapid COVID POC 09517 Follow-up With When Contact Information GEOFF PINTO FAAFP, Jamison Campos, FAM, PED [address] [place] [address]- Additional Instructions: Patient Education BMI for Adults COVID-19 Problem List/Past Medical History Ongoing Axonal sensorimotor neuropathy Basal cell carcinoma BPH associated with nocturia BPH without urinary obstruction Cervicalgia Chronic constipation Chronic insomnia COVID-19 COVID-19 ruled out by laboratory testing DDD (degenerative disc disease), cervical Dyshidrotic eczema Edema of both lower legs due to peripheral venous insufficiency Enthesopathy of right shoulder Familial hypercholesterolemia Gouty arthritis of right hand Hypertension Idiopathic small fiber sensory neuropathy Impingement of left shoulder Left lumbar radiculitis Lumbar spine pain 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 [facility] Comment on above: Result Comment: Elec tronically Signed By: JUANA BURLESON PA-C\.diego\Date and Time Signed: 05/31/24 16:29 EDT Ambulatory Visit Summaryon 0 05-20-2024 Ambulatory Visit Summary Ambulatory Visit Summary JOSE ROCHA :1940 [id number] Visit Date:05/20/2024 Ambulatory Visit Instructions Your Diagnosis COVID-19 Cough BMI 27.0-27.9,adult These Are Your Goals Hypertension: Maintain blood pressure in therapeutic range - Progressing Interventions: Maintain an active lifestyle - Progressing Monitor Sodium intake - Progressing Monitor blood pressure daily - Progressing Review education booklet - Done Take medications as prescribed - Progressing PAF: Avoid complications Interventions: Monitor for symptoms of complication - Progressing Read education material - Done Take Medications as Prescribed - Progressing Neuropathy: Remain free from injury Interventions: Continue podiatry follow ups as scheduled - Progressing Examine lower extremities - Progressing Take medications as prescribed - Progressing Your Care Team Attending Physician - Jose Corley DO Primary Care Physician - Jamison TELLEZ DO, FAAFP This Is Your Medications List apixaban (Eliquis 5 mg oral tablet) atorvastatin (Lipitor 20 mg Tab) benzonatate (Tessalon 100 mg Cap) cholecalciferol (Vitamin D3 50 mcg (2000 intl units) oral tablet, chewable) flecainide (flecainide 50 mg Tab) gabapentin (gabapentin 300 mg Cap) losartan (losartan 50 mg Tab) multivitamin with minerals (One A Day Men's Complete) psyllium (Metamucil 3.4 g/5.2 g oral powder) tamsulosin (Flomax 0.4 mg Cap) tizanidine (tizanidine 4 mg oral capsule) triamcinolone topical (triamcinolone Top 0.1% Crm 15 gram) zolpidem (zolpidem 12.5 mg oral ER Tab) Procedures Performed Cardioversion (03/30/2023), Left Total Hip Arthroplasty (02/02/2016), bilateral cataract implants, Carpal tunnel release, Stephany fundoplication, skin cancer removed, stomach surgery, TURP - Transurethral resection of prostate. Discharge Vitals Heart Rate (Peripheral) 90 Blood Pressure 122/64 Height 178 cm Height 70 in Weight 88 kg Weight 193.6 lb BMI 27.77 What to do next Scheduled Follow-Up Appointments Monday 2:30 PM EDT With: Where: [facility] [address] [facility], [place] [address]- Monday 2:40 PM EDT With: Jamison TELLEZ DO, FAAFP Where: [facility] [address], [place] [address]- Medications What How Much When Why Instructions Unchanged apixaban (Eliquis 5 mg oral tablet) 1 Tablets By Mouth 2 times a day Unchanged atorvastatin (Lipitor 20 mg Tab) 1 Tablets By Mouth Once a day (at bedtime) Unchanged benzonatate (Tessalon 100 mg Cap) 1 Capsules By Mouth 3 times a day COVID-19 Duration: 7 Days Unchanged cholecalciferol (Vitamin D3 50 mcg (2000 intl units) oral tablet, chewable) 1 Tablets By Mouth Every day Unchanged flecainide (flecainide 50 mg Tab) 1 Tablets By Mouth Every 12 hours Unchanged gabapentin (gabapentin 300 mg Cap) 1 Capsules By Mouth Every day Unchanged losartan (losartan 50 mg Tab) 1 Tablets By Mouth Every day Unchanged multivitamin with minerals (One A Day Men's Complete) By Mouth Every day Unchanged psyllium (Metamucil 3.4 g/ 5.2 g oral powder) 3.4 Gram By Mouth Every day Unchanged tamsulosin (Flomax 0.4 mg Cap) 1 Capsules By Mouth Every day Unchanged tizanidine (tizanidine 4 mg oral capsule) 1 Capsules By Mouth 3 times a day Lumbar spine pain Unchanged triamcinolone topical (triamcinolone Top 0.1% Crm 15 gram) See instructions Topical BID topically twice daily as needed for itching, red, scaly areas Unchanged zolpidem (zolpidem 12.5 mg oral ER Tab) 1 Tablets By Mouth Once a day (at bedtime) as needed for for sleep Anxiety, generalized Insomnia 30 day supply Allergies No Known Allergies Problems Ongoing - Any problem that you are currently receiving treatment for. 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 Atrial fibrillation BMI 25.0-25.9,adult BPH Bruise Cervical pain Cervical stenosis of spine (more content not included)... [facility] Family Medicine Office/Clini c Noteon 05-20-2024 Family Medicine Office/Clinic Note Family Medicine Office/Clinic Note Chief Complaint weakness HPI Staff 83 year old male presents with a positive covid test 6 days ago nasal congestion, cough History of Present Illness covid positive at home notes that his is in the hospital he was seen here last week on 05/15 and 05/16 for the same symptoms remains mild symptoms just wanted to know if he was still positive for covid Review of Systems PHQ Score Initial Depression Screen Score: 0 SCORE Physical Exam Vitals & Measurements HR: 90(Peripheral) BP: 122/64 SpO2: 98% HT: 70 in HT: 178 cm WT: 88 kg WT: 193.6 lb BMI: 27.77 Constitutional: Vital signs reviewed; JOSE ROCHA is well nourished, no acute distress Head: Atraumatic, normocephalic Eye: EOMI, normal conjunctiva ENT: Moist oral mucosa, external inspection of ears and nose is unremarkable Neck: Trachea is midline, no tenderness Lungs: Clear to auscultation, non-labored respiration - expansion is symmetric Heart: Normal rate and rhythm, normal peripheral perfusion Lymph: Deferred Abd: Deferred : Deferred MSK: Normal gait and station Skin: Warm, dry Neurologic: Awake, alert Assessment/Plan 1. COVID-19 (U07.1: COVID-19) Acute viral illness I have a suspicion this is COVID COVID test results POSITIVE Symptoms are mild Discussed symptom management Continue wearing a mask for the next five days To ED if they are having trouble breathing, persistent chest pain or pressure, new confusion, blush lips or face, inability to stay awake, pale, larkin or blue-colored skin, lips or nail beds. I recommend that they inform ED of positive COVID-19 status prior to going to ED and/or inform 911 personnel of COVID-19 positive status if calling 911. f/u PRN 2. Cough (R05.9: Cough, unspecified) see #1 Ordered: Rapid COVID POC 34028 3. BMI 27.0-27.9,adult (Z68.27: Body mass index [BMI] 27.0-27.9, adult) Follow-up No qualifying data available Problem List/Past Medical History Ongoing Axonal sensorimotor neuropathy Basal cell carcinoma BPH associated with nocturia BPH without urinary obstruction Cervicalgia Chronic constipation Chronic insomnia COVID-19 DDD (degenerative disc disease), cervical Dyshidrotic eczema Edema of both lower legs due to peripheral venous insufficiency Enthesopathy of right shoulder Familial hypercholesterolemia Gouty arthritis of right hand Hypertension Idiopathic small fiber sensory neuropathy Impingement of left shoulder Left lumbar radiculitis Lumbar spine pain 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 Non-smoker Osteoarthritis of both hands PAF (paroxysmal atrial fibrillation) Peyronie's disease Right shoulder pain Screening PSA (prostate specific antigen) Seasonal allergies Seborrheic keratosis Senile ecchymosis Syncope Tortuous aorta Wheezing Historical Atrial fibrillation BMI 25.0-25.9,adult BPH Bruise Cervical pain Cervical stenosis of spine Constipation Ecchymoses, spontaneous Fall as cause of accidental injury at home as place of occurrence Fracture in accidental fall Head injury without concussion or intracranial hemorrhage Hemorrhoids Hereditary sensory and autonomic neuropathy Indigestion Insomnia Left leg cellulitis Lumbar radiculitis Malaise and fatigue Musculoskeletal chest pain Neck pain Obstipation Over weight Rib pain on left side Right knee DJD Right wrist pain Scalp abrasion Skin cancer Skin tear of upper extremity Sleep apnea Sore throat Sternal fracture Tic douloureux Tingling Trigeminal neuralgia Urinary retention Procedure/Surgical History Cardioversion (03/30/2023), Left Total Hip Arthroplasty (02/02/2016), bilateral cataract implants, Carpal tunnel release, Stephany fundoplication, skin cancer removed, stomach surgery, TURP - Transurethral resection of prostate. Medications Eliquis 5 mg oral tablet, 5 mg= 1 tab(s), Oral, BID flecainide 50 mg Tab, 50 mg= 1 tab(s), Oral, q12hr Flomax 0.4 mg Cap, 0.4 mg= 1 cap(s), Oral, Daily, 3 refills, Not taking gabapentin 300 mg Cap, 300 mg= 1 cap(s), Oral, Daily Lipitor 20 mg Tab, 20 mg= 1 tab(s), Oral, Once a day (at bedtime), 3 refills losartan 50 mg Tab, 50 mg= 1 tab(s), Oral, Daily Metamucil 3.4 g/5.2 g oral powder, 3.4 gm, Oral, Daily One A Day Men's Complete, Oral, Daily Tessalon 100 mg Cap, 100 mg= 1 cap(s), Oral, TID tizanidine 4 mg oral capsule, 4 mg= 1 cap(s), Oral, TID triamcinolone Top 0.1% Crm 15 gram, See Instructions, 1 refills Vitamin D3 50 mcg (2000 intl units) oral tablet, chewable, 50 mcg= 1 tab(s), Oral, Daily zolpidem 12.5 mg oral ER Tab, 12.5 mg= 1 tab(s), Oral, Once a day (at bedtime), PRN, 5 refills Allergies No Known Allergies Social History Alcohol - Denies Alcohol Use, 07/12/2012 Substance Abuse - Denies Substance Abuse, 07/12/2012 Tobacco - Denies Tobacco Use, 10 (more content not included)... [facility] Comment on above: Result Comment: Elec tronically Signed By: Jose Corley DO\.br\Date and Time Signed: 05/20/24 14:04 EDT Ambulatory Visit Summaryon 0 05-16-2024 Ambulatory Visit Summary Ambulatory Visit Summary JOSE ROCHA :1940 Visit Date:05/16/2024 Ambulatory Visit Instructions Your Diagnosis COVID-19 These Are Your Goals Hypertension: Maintain blood pressure in therapeutic range - Progressing Interventions: Maintain an active lifestyle - Progressing Monitor Sodium intake - Progressing Monitor blood pressure daily - Progressing Review education booklet - Done Take medications as prescribed - Progressing PAF: Avoid complications - Progressing Interventions: Monitor for symptoms of complication - Progressing Read education material - Done Take Medications as Prescribed - Progressing Neuropathy: Remain free from injury - Progressing Interventions: Continue podiatry follow ups as scheduled - Progressing Examine lower extremities - Progressing Take medications as prescribed - Progressing Your Care Team Attending Physician - Ml VIDES-Ivone MARROQUIN Primary Care Physician - Jamison TELLEZ DO, FAAFP This Is Your Medications List Contact prescribing physician if questions or concerns apixaban (Eliquis 5 mg oral tablet) atorvastatin (Lipitor 20 mg Tab) benzonatate (Tessalon 100 mg Cap) cholecalciferol (Vitamin D3 50 mcg (2000 intl units) oral tablet, chewable) flecainide (flecainide 50 mg Tab) gabapentin (gabapentin 300 mg Cap) losartan (losartan 50 mg Tab) multivitamin with minerals (One A Day Men's Complete) psyllium (Metamucil 3.4 g/5.2 g oral powder) tamsulosin (Flomax 0.4 mg Cap) tizanidine (tizanidine 4 mg oral capsule) triamcinolone topical (triamcinolone Top 0.1% Crm 15 gram) zolpidem (zolpidem 12.5 mg oral ER Tab) Procedures Performed Cardioversion (03/30/2023), Left Total Hip Arthroplasty (02/02/2016), bilateral cataract implants, Carpal tunnel release, Stephany fundoplication, skin cancer removed, stomach surgery, TURP - Transurethral resection of prostate. Discharge Vitals Temperature (Oral) 37.1 ?C Heart Rate (Peripheral) 87 Blood Pressure 122/64 Height 178 cm Height 70 in Weight 88 kg Weight 193.6 lb BMI 27.77 What to do next Scheduled Follow-Up Appointments Monday 2:30 PM EDT With: Where: [facility] [address] [facility] [place] [address]- Monday 2:40 PM EDT With: Jamison TELLEZ DO, FAAFP Where: [facility] [address] [place] [address]- Medications What How Much When Why Instructions Unchanged apixaban (Eliquis 5 mg oral tablet) 1 Tablets By Mouth 2 times a day Contact prescribing physician if questions or concerns Unchanged atorvastatin (Lipitor 20 mg Tab) 1 Tablets By Mouth Once a day (at bedtime) Contact prescribing physician if questions or concerns Unchanged benzonatate (Tessalon 100 mg Cap) 1 Capsules By Mouth 3 times a day COVID-19 Duration: 7 Days Contact prescribing physician if questions or concerns Unchanged cholecalciferol (Vitamin D3 50 mcg (2000 intl units) oral tablet, chewable) 1 Tablets By Mouth Every day Contact prescribing physician if questions or concerns Unchanged flecainide (flecainide 50 mg Tab) 1 Tablets By Mouth Every 12 hours Contact prescribing physician if questions or concerns Unchanged gabapentin (gabapentin 300 mg Cap) 1 Capsules By Mouth Every day Contact prescribing physician if questions or concerns Unchanged losartan (losartan 50 mg Tab) 1 Tablets By Mouth Every day Contact prescribing physician if questions or concerns Unchanged multivitamin with minerals (One A Day Men's Complete) By Mouth Every day Contact prescribing physician if questions or concerns Unchanged psyllium (Metamucil 3.4 g/ 5.2 g oral powder) 3.4 Gram By Mouth Every day Contact prescribing physician if questions or concerns Unchanged tamsulosin (Flomax 0.4 mg Cap) 1 Capsules By Mouth Every day Contact prescribing physician if questions or concerns Unchanged tizanidine (tizanidine 4 mg oral capsule) 1 Capsules By Mouth 3 times a day Lumbar spine pain Contact prescribing physician if questions or concerns Unchanged triamcinolone topical (triamcinolone Top 0.1% Crm 15 gram) See instructions Topical BID topically twice daily as needed for itching, red, scaly areas Contact prescribing physician if questions or concerns Unchanged zolpidem (zolpidem 12.5 mg oral ER Tab) 1 Tablets By Mouth Once a day (at bedtime) as needed for for sleep Anxiety, generalized Insomnia 30 day supply Contact prescribing physician if questions or concerns Allergies No Known Allergies Problems Ongoing - Any problem that you are currently receiving treatment for. Axonal sensorimotor neuropathy Basal cell carcinoma BPH associated with nocturia BPH without urinary obstruction Cervicalgia Chronic constipation Chronic insomnia DDD (degenerative disc disease), cervical Dyshidrotic eczema Edema of both lower legs due to peripheral venous insuff (more content not included)... [facility] Family Medicine Office/Clini c Noteon 05-16-2024 Family Medicine Office/Clinic Note Family Medicine Office/Clinic Note Chief Complaint covid HPI Staff 83 year old male here for cough, fatigue, runny nose x 2 weeks. Pt was covid positive 2 weeks ago. History of Present Illness Reviewed and agree with above documented HPI by pediatrician/medical doctor. Patient is an 83-year-old male who presents with continued symptoms of COVID. He was just here yesterday 05/15/2024 although he denies having been here yesterday. When he was here yesterday, he was tested positive for COVID. Patient states that he has been taking the Tessalon Perles that he was prescribed yesterday. He makes no other complaints today. Patient has no known allergies. Review of Systems PHQ Score Initial Depression Screen Score: 0 SCORE Physical Exam Vitals & Measurements T: 37.1 ?C(Oral) HR: 87(Peripheral) BP: 122/64 SpO2: 97% HT: 70 in HT: 178 cm WT: 88 kg WT: 193.6 lb BMI: 27.77 General: Well developed, well nourished, in no acute distress, does not appear ill or septic Eyes: Pupils equal, round, and reactive to light. Conjunctivae and sclerae normal, and extraocular movements intact Ears: No deformity or lesion of external ear. Canals and TM appear normal bilaterally. TM?s intact, not inflamed, with normal light reflex. Hearing grossly normal to conversational speech Nose: No deformity, discharge, inflammation, or lesions Mouth: Moist mucous membranes. Uvula is midline. No acute tonsillar erythema edema or exudate. No signs of peritonsillar abscess. No trismus or drooling. Neck: no adenopathy Lungs: Normal respiratory effort and clear diminished throughout Cardio: regular rate and rhythm, no murmur Abdomen: Soft, non-distended, non-tender Musculoskeletal: No deformity or scoliosis noted. Normal range of motion. Joints normal. No erythema, edema, effusion, or ecchymosis Extremity: No clubbing, cyanosis, edema, or deformity, with normal ROM in both upper and lower bilateral extremities Neurologic: Grossly normal Skin: No rashes, ulcerations, or suspicious lesions Mental Status: Alert and oriented x3. Normal speech and thought content, normal mood and affect Assessment/Plan 1. COVID-19 (U07.1: COVID-19) Patient is advised to continue symptom treatment as instructed from visit on 05/15/2024. Discussed that COVID is a viral syndrome which typically last 5 to 12 days. Continue symptomatic treatment with Tessalon, prescribed 05/15/2024. Reviewed with patient that Paxlovid is not indicated due to his taking of flecainide. As needed Tylenol/ibuprofen for any discomfort. Fluids, rest encouraged. New CDC guidelines are to quarantine x5 days from symptom onset. After 5 days may return to normal activities as long as overall improvement of symptoms and no fever for 24 hours. Needs to continue to wear a mask in public and while at work or school for the next 5 days after quarantine ends. Follow-up with PCP if symptoms or not improving over the next 2 weeks, ER if any significant shortness of breath or signs of respiratory distress. Patient verbalized understanding. Portions of this record may have been created with voice recognition artificial intelligence software, specifically [employer] and or [employer]. Occasional wrong-word or `[id number]? substitutions may have occurred due to the inherent limitations of voice recognition and artificial intelligence software. Follow-up No qualifying data available Patient Education COVID-19 Quarantine and Isolation Problem List/Past Medical History Ongoing Axonal sensorimotor neuropathy Basal cell carcinoma BPH associated with nocturia BPH without urinary obstruction Cervicalgia Chronic constipation Chronic insomnia DDD (degenerative disc disease), cervical Dyshidrotic eczema Edema of both lower legs due to peripheral venous insufficiency Enthesopathy of right shoulder Familial hypercholesterolemia Gouty arthritis of right hand Hypertension Idiopathic small fiber sensory neuropathy Impingement of left shoulder Left lumbar radiculitis Lumbar spine pain 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 Non-smoker Osteoarthritis of both hands PAF (paroxysmal atrial fibrillation) Peyronie's disease Right shoulder pain Screening PSA (prostate specific antigen) Seasonal allergies Seborrheic keratosis Senile ecchymosis Syncope Tortuous aorta Wheezing Historical Atrial fibrillation BMI 25.0-25.9,adult BPH Bruise Cervical pain Cervical stenosis of spine Constipation Ecchymoses, spontaneous Fall as cause of accidental injury at home as place of occurrence Fracture in accidental fall Head injury without concussion or intracranial hemorrhage Hemorrhoids Hereditary sensory and autonomic neuropathy Indigestion Insomnia Left leg cellulitis Lumbar radiculitis Malaise and fatigue Musculoskeletal chest pain Neck pain Obstipation Over weight Rib pain on (more content not included)... [facility] Comment on above: Result Comment: Elec tronically Signed By: Ml SAUCEDA, Ivone Calderon\.br\Date and Time Signed: 05/16/24 17:21 EDT Ambulatory Visit Summaryon 0 05-15-2024 Ambulatory Visit Summary Ambulatory Visit Summary JOSE ROCHA :1940 Visit Date:05/15/2024 Ambulatory Visit Instructions Your Diagnosis COVID-19 BMI 27.0-27.9,adult Non-smoker Sore throat These Are Your Goals Hypertension: Maintain blood pressure in therapeutic range - Progressing Interventions: Maintain an active lifestyle - Progressing Monitor Sodium intake - Progressing Monitor blood pressure daily - Progressing Review education booklet - Done Take medications as prescribed - Progressing PAF: Avoid complications Interventions: Monitor for symptoms of complication - Progressing Read education material - Done Take Medications as Prescribed - Progressing Neuropathy: Remain free from injury Interventions: Continue podiatry follow ups as scheduled - Progressing Examine lower extremities - Progressing Take medications as prescribed - Progressing Your Care Team Attending Physician - Fidel Magdaleno PA-C Primary Care Physician - Jamison TELLEZ DO, FAAFP This Is Your Medications List benzonatate (Tessalon 100 mg Cap) Contact prescribing physician if questions or concerns apixaban (Eliquis 5 mg oral tablet) atorvastatin (Lipitor 20 mg Tab) cholecalciferol (Vitamin D3 50 mcg (2000 intl units) oral tablet, chewable) flecainide (flecainide 50 mg Tab) gabapentin (gabapentin 300 mg Cap) losartan (losartan 50 mg Tab) multivitamin with minerals (One A Day Men's Complete) psyllium (Metamucil 3.4 g/5.2 g oral powder) tamsulosin (Flomax 0.4 mg Cap) tizanidine (tizanidine 4 mg oral capsule) triamcinolone topical (triamcinolone Top 0.1% Crm 15 gram) zolpidem (zolpidem 12.5 mg oral ER Tab) Procedures Performed Cardioversion (03/30/2023), Left Total Hip Arthroplasty (02/02/2016), bilateral cataract implants, Carpal tunnel release, Stephany fundoplication, skin cancer removed, stomach surgery, TURP - Transurethral resection of prostate. Discharge Vitals Temperature (Oral) 37.1 ?C Heart Rate (Peripheral) 90 Blood Pressure 120/60 Height 178 cm Height 70 in Weight 87.2 kg Weight 191.84 lb BMI 27.52 What to do next Scheduled Follow-Up Appointments Monday 2:30 PM EDT With: Where: [facility] [address], [place] [address]- Monday 2:40 PM EDT With: Jamison TELLEZ DO, FAAFP Where: [facility] [address], [place] [address]- Medications What How Much When Why Instructions New benzonatate (Tessalon 100 mg Cap) 1 Capsules By Mouth 3 times a day COVID-19 Duration: 7 Days Pickup at [id number] Unchanged apixaban (Eliquis 5 mg oral tablet) 1 Tablets By Mouth 2 times a day Contact prescribing physician if questions or concerns Unchanged atorvastatin (Lipitor 20 mg Tab) 1 Tablets By Mouth Once a day (at bedtime) Contact prescribing physician if questions or concerns Unchanged cholecalciferol (Vitamin D3 50 mcg (2000 intl units) oral tablet, chewable) 1 Tablets By Mouth Every day Contact prescribing physician if questions or concerns Unchanged flecainide (flecainide 50 mg Tab) 1 Tablets By Mouth Every 12 hours Contact prescribing physician if questions or concerns Unchanged gabapentin (gabapentin 300 mg Cap) 1 Capsules By Mouth Every day Contact prescribing physician if questions or concerns Unchanged losartan (losartan 50 mg Tab) 1 Tablets By Mouth Every day Contact prescribing physician if questions or concerns Unchanged multivitamin with minerals (One A Day Men's Complete) By Mouth Every day Contact prescribing physician if questions or concerns Unchanged psyllium (Metamucil 3.4 g/ 5.2 g oral powder) 3.4 Gram By Mouth Every day Contact prescribing physician if questions or concerns Unchanged tamsulosin (Flomax 0.4 mg Cap) 1 Capsules By Mouth Every day Contact prescribing physician if questions or concerns Unchanged tizanidine (tizanidine 4 mg oral capsule) 1 Capsules By Mouth 3 times a day Lumbar spine pain Contact prescribing physician if questions or concerns Unchanged triamcinolone topical (triamcinolone Top 0.1% Crm 15 gram) See instructions Topical BID topically twice daily as needed for itching, red, scaly areas Contact prescribing physician if questions or concerns Unchanged zolpidem (zolpidem 12.5 mg oral ER Tab) 1 Tablets By Mouth Once a day (at bedtime) as needed for for sleep Anxiety, generalized Insomnia 30 day supply Contact prescribing physician if questions or concerns Pharmacy Information [id number]: [address] [place], [place] [phone] Allergies No Known Allergies Problems Ongoing - Any problem that you are currently receiving treatment for. Axonal sensorimotor neuropathy Basal cell carcinoma BPH associated with nocturia BPH without urinary obstruction Cervicalgia Chronic constipation Chronic insomnia DDD (degenerati (more content not included)... [facility] Family Medicine Office/Clini c Noteon 05-15-2024 Family Medicine Office/Clinic Note Family Medicine Office/Clinic Note Chief Complaint sore throat and cough HPI Staff complaints of sore throat Onset: this morning Characteristics: cough, runny nose OTC tried: none History of Present Illness I have reviewed and verified the staff HPI to be accurate for this encounter. Portions of this record have been created with voice recognition software. Occasional wrong-word or ?[id number]? substitutions may have occurred due to the inherent limitations of voice recognition software. 83 yo male presents today with cc of sore throat. Patient states that yesterday or the day prior he had a little bit of a dry cough. States this morning he woke up with a sore throat runny stuffy nose and continuation of cough. Patient denies any recent sick contacts or recent travel however notes that he has been at the hospital over the last 1 week as his has been hospitalized. States he did test his for COVID-19 in which she was negative states that she has many chronic health issues in which she is hospitalized for currently. He denies any chest pain shortness of breath or difficulty breathing. He does note history of A-fib in which he does take Eliquis. States his sore throat is what bothered him more so today. He denies any fever or chills. Denies any body aches or headache. He denies any loss of sense of taste or smell. He denies any abdominal pain nausea vomiting or diarrhea. He has no other concerns at this time. Review of Systems PHQ Score Initial Depression Screen Score: 0 SCORE ROS negative unless otherwise stated in HPI. Physical Exam Vitals & Measurements T: 37.1 ?C(Oral) HR: 90(Peripheral) BP: 120/60 SpO2: 96% HT: 70 in HT: 178 cm WT: 87.2 kg WT: 191.84 lb BMI: 27.52 General: Very pleasant elderly male, no acute distress Eyes: Bilateral conjunctiva within normal limits no injection Ears: Patient is wearing a hearing aid in the left ear. Bilateral TMs are within normal limits no erythema or bulging. Bilateral external auditory canals are within normal limits no erythema or edema Nose: mild nasal mucosa inflammation and edema no active drainage deformities or lesions. Mouth: Moist mucous membranes. Uvula is midline. No acute tonsillar erythema edema or exudate. No signs of peritonsillar abscess. No trismus or drooling. Neck: no adenopathy Lungs: Lung sounds are clear bilaterally. No wheezing rhonchi or crackles on exam. Cardio: S1, S2, regular rhythm. No murmurs gallops or rubs. Abdomen: not assessed Musculoskeletal: not assessed Extremity: Patient walked back into convenient care on his own without gait abnormality. Neurologic: not assessed Skin: not assessed Mental Status: Alert and oriented x3. Normal mood and affect Assessment/Plan Patient tested positive for COVID-19 in office today. I updated patient in regards to the positive result. Discussed in regards to isolating x 5 days duration in addition to masking. Patient's is currently in the hospital. Discussed with patient to contact the hospital to speak with 1 of patient's nurses let them know that he tested positive for COVID-19 and to discuss his on their current protocols as he has been visiting his for the past week as she is currently hospitalized. Discussed with patient in regards to antiviral for COVID-19 states he was vaccinated however states he does not believe he is ever had COVID-19. Discussed that he may have cough and cold-like symptoms anywhere from a week to 2 weeks in duration. Discussed the patient were develop any chest pain shortness of breath or difficulty breathing that he should be reevaluated in the emergency department. Did discuss with patient in regards to Paxlovid antiviral however patient takes flecainide in which there is a major contraindication to this medication is not sent to the pharmacy for him. I did send Tessalon Perles or cough suppressant 1 tablet nightly as needed for cough and congestion otherwise did discuss in regards to [id number] Coricidin BP as patient has history of hypertension. Patient understands to follow closely with his primary care provider in regards to follow-up appointment otherwise may return if needed. Patient agrees and understands plan of care. 1. COVID-19 (U07.1: COVID-19) Discussed that COVID is a viral syndrome which typically last 5 to 12 days. Continue symptomatic treatment with tessalon perles, OTC coricidin. As needed Tylenol/ibuprofen for any discomfort. Fluids, rest encouraged. New CDC guidelines are to quarantine x5 days from symptom onset. After 5 days may return to normal activities as long as overall improvement of symptoms and no fever for 24 hours. Needs to continue to wear a mask in public and while at work or school for the next 5 days after quarantine ends. Follow-up with PCP if symptoms or not improving over the next 2 weeks, ER if any significant shortness of breath or signs of respiratory distress. Patient verbalized understanding. Ordered: benzonatate, 100 mg = 1 cap(s (more content not included)... [facility] Comment on above: Result Comment: Elec tronically Signed By: Rasta RAMIREZ, Fidel Garaz\.br\Date and Time Signed: 05/15/24 11:38 EDT Ambulatory Visit Summaryon 0 04-13-2024 Ambulatory Visit Summary Ambulatory Visit Summary JOSE ROCHA :1940 Visit Date:04/13/2024 Ambulatory Visit Instructions Your Diagnosis Lumbar spine pain These Are Your Goals Hypertension: Maintain blood pressure in therapeutic range - Progressing Interventions: Maintain an active lifestyle - Progressing Monitor Sodium intake - Progressing Monitor blood pressure daily - Progressing Review education booklet - Done Take medications as prescribed - Progressing PAF: Avoid complications - Progressing Interventions: Monitor for symptoms of complication - Progressing Read education material - Done Take Medications as Prescribed - Progressing Neuropathy: Remain free from injury - Progressing Interventions: Continue podiatry follow ups as scheduled - Progressing Examine lower extremities - Progressing Take medications as prescribed - Progressing Your Care Team Attending Physician - MANA MUHAMMAD Primary Care Physician - Jamison TELLEZ DO, FAAFP This Is Your Medications List apixaban (Eliquis 5 mg oral tablet) atorvastatin (Lipitor 20 mg Tab) cholecalciferol (Vitamin D3 50 mcg (2000 intl units) oral tablet, chewable) flecainide (flecainide 50 mg Tab) gabapentin (gabapentin 300 mg Cap) losartan (losartan 50 mg Tab) multivitamin with minerals (One A Day Men's Complete) predniSONE (predniSONE 10 mg Tab) psyllium (Metamucil 3.4 g/5.2 g oral powder) tamsulosin (Flomax 0.4 mg Cap) tizanidine (tizanidine 4 mg oral capsule) triamcinolone topical (triamcinolone Top 0.1% Crm 15 gram) zolpidem (zolpidem 12.5 mg oral ER Tab) Procedures Performed Cardioversion (03/30/2023), Left Total Hip Arthroplasty (02/02/2016), bilateral cataract implants, Carpal tunnel release, Stephany fundoplication, skin cancer removed, stomach surgery, TURP - Transurethral resection of prostate. Discharge Vitals Temperature (Oral) 37 ?C Heart Rate (Peripheral) 91 Blood Pressure 116/60 Height 178 cm Height 70 in Weight 86.3 kg Weight 189.86 lb BMI 27.24 What to do next Scheduled Follow-Up Appointments Monday 2:30 PM EDT With: Where: [facility] [address] [place] [address]- \.br\ Medications\.br\ What How Much When Why Instructions\.br \ New predniSONE (predniSONE 10 mg Tab) 10 Milligram By Mouth As Directed Lumbar spine pain Duration: 16 Days 4 QDx4 days; 3 QDx4 d; 2 QDx4 d; 1 QDx4d; d/ c Pickup at [id number]\.br\ New tizanidine (tizanidine 4 mg oral capsule) 1 Capsules By Mouth 3 times a day Lumbar spine pain Pickup at [facility]\.br\ Unchanged apixaban (Eliquis 5 mg oral tablet) 1 Tablets By Mouth 2 times a day\.br\ Unchanged atorvastatin (Lipitor 20 mg Tab) 1 Tablets By Mouth Once a day (at bedtime)\.br\ Unchanged cholecalciferol (Vitamin D3 50 mcg (2000 intl units) oral tablet, chewable) 1 Tablets By Mouth Every day\.br\ Unchanged flecainide (flecainide 50 mg Tab) 1 Tablets By Mouth Every 12 hours\.br\ Unchanged gabapentin (gabapentin 300 mg Cap) 1 Capsules By Mouth Every day\.br\ Unchanged losartan (losartan 50 mg Tab) 1 Tablets By Mouth Every day\.br\ Unchanged multivitamin with minerals (One A Day Men's Complete) By Mouth Every day\.br\ Unchanged psyllium (Metamucil 3.4 g/ 5.2 g oral powder) 3.4 Gram By Mouth Every day\.br\ Unchanged tamsulosin (Flomax 0.4 mg Cap) 1 Capsules By Mouth Every day\.br\ Unchanged triamcinolone topical (triamcinolone Top 0.1% Crm 15 gram) See instructions Topical BID topically twice daily as needed for itching, red, scaly areas \.br\ Unchanged zolpidem (zolpidem 12.5 mg oral ER Tab) 1 Tablets By Mouth Once a day (at bedtime) as needed for for sleep Anxiety, generalized Insomnia 30 day supply \.br\ Pharmacy Information\.br\ [facility]: [address] [place], [place] [phone]\.br\ Allergies\.br\ No Known Allergies\.br\ Problems\.br\ Ongoing - Any problem that you are currently receiving treatment for.\.br\ Axonal sensorimotor neuropathy\.br\ Basal cell carcinoma\.br\ BPH associated with nocturia\.br\ BPH without urinary obstruction\.br\ Cervicalgia\.br\ Chronic constipation\.br \ Chronic insomnia\.br\ DDD (degenerative disc disease), cervical\.br\ Dyshidrotic eczema\.br\ Edema of both lower legs due to peripheral venous insufficiency\.b r\ Enthesopathy of right shoulder\.br\ Familial hypercholesterol emia\.br\ Gouty arthritis of right hand\.br\ Hypertension\.br \ Idiopathic small fiber sensory neuropathy\.br\ Impingement of left shoulder\.br\ Left lumbar radiculitis\.br\ Lumbar spine pain\.br\ 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\.br\ Neoplasm of uncertain behavior\.br\ Non-smoker\.br\ Osteoarthritis of both hands\.br\ PAF (paroxysmal atrial fibrillation)\.b r\ Peyronie's disease\.br\ Right shoulder pain\.br\ Screening PSA (prostate specific antigen)\.br\ Seasonal allergies\.br\ Seborrheic keratosis\.br\ Senile ecchymosis\.br\ Syncope\.br\ Tortuous aorta\.br\ Wheezing\.br\ Historical - Any problem that you are no longer receiving treatment for.\.br\ Atrial fibrillation\.br \ BMI 25.0-25.9,adult\ .br\ BPH\.br\ Bruise\.br\ Cervical pain\.br\ Cervical stenosis of spine\.br\ Constipation\.br \ Ecchymoses, spontaneous\.br\ Fall as cause of accidental injury at home as place of occurrence\.br\ Fracture in accidental fall\.br\ Head injury without concussion or intracranial hemorrhage\.br\ Hemorrhoids\.br\ Hereditary sensory and autonomic neuropathy\.br\ Indigestion\.br\ Insomnia\.br\ Left leg cellulitis\.br\ Lumbar radiculitis\.br\ Malaise and fatigue\.br\ Musculoskeletal chest pain\.br\ Neck pain\.br\ Obstipation\.br\ Over weight\.br\ Rib pain on left side\.br\ Right knee DJD\.br\ Right wrist pain\.br\ Scalp abrasion\.br\ Skin cancer\.br\ Skin tear of upper extremity\.br\ Sleep apnea\.br\ Sore throat\.br\ Sternal fracture\.br\ Tic douloureux\.br\ Tingling\.br\ Trigeminal neuralgia\.br\ Urinary retention\.br\ Patient Survey\.br\ You may receive a survey via text or e-mail asking about your office visit. Please share your experience with us by completing your survey. We appreciate your feedback and thank you for choosing us for your care.\.br\ \.br\ [facility] Family Medicine Office/Clini c Noteon 04-13-2024 Family Medicine Office/Clinic Note Family Medicine Office/Clinic Note Chief Complaint low back pain HPI Staff 83 year old male here for lower back pain since yesterday. No injury. 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 Pain when sitting down and getting back up. Pt also complains of left shoulder pain x 2 months. No injury. History of Present Illness Jose is an 83 year old male who presents to the for lumbar spine pain. He was mowing the lawn yesterday, and afterward his back started hurting. He states the pain is stabbing, shooting, throbbing, and concentrated to his low back. He sees Dr. Jimenez for his shoulder, and receives injections. He had an xray done today and I reviewed the results with him. He plans to ask Dr. Jo about increasing his GBP. Staff HPI reviewed and accurate. Review of Systems PHQ Score Initial Depression Screen Score: 0 SCORE Physical Exam Vitals & Measurements T: 37 ?C(Oral) HR: 91(Peripheral) BP: 116/60 SpO2: 96% HT: 70 in HT: 178 cm WT: 86.3 kg WT: 189.86 lb BMI: 27.24 Lumbar spine: no gross deformity. Antalgic gait. Assessment/Plan 1. Lumbar spine pain (M54.50: Low back pain, unspecified) xray prednisone taper tizanidine prn follow up with PCP and neuro Ordered: predniSONE, 10 mg, Oral, As Directed, 4 QDx4 days; 3 QDx4 d; 2 QDx4 d; 1 QDx4d; d/c, X 16 day(s), # 40 tab(s), Refills(s) 0, Pharmacy: [id number], 178, cm, 04/13/24 13:29:00 EDT, Height/Length Dosing, 86.3, kg, 04/13/24 13:29:00 EDT, Weight Dosing tizanidine, 4 mg = 1 cap(s), Oral, TID, # 90 cap(s), Refills(s) 0, Pharmacy: [id number], 178, cm, 04/13/24 13:29:00 EDT, Height/Length Dosing, 86.3, kg, 04/13/24 13:29:00 EDT, Weight Dosing XR Spine Lumbosacral Minimum 4 Views Follow-up No qualifying data available Problem List/Past Medical History Ongoing Axonal sensorimotor neuropathy Basal cell carcinoma BPH associated with nocturia BPH without urinary obstruction Cervicalgia Chronic constipation Chronic insomnia DDD (degenerative disc disease), cervical Dyshidrotic eczema Edema of both lower legs due to peripheral venous insufficiency Enthesopathy of right shoulder Familial hypercholesterolemia Gouty arthritis of right hand Hypertension Idiopathic small fiber sensory neuropathy Impingement of left shoulder Left lumbar radiculitis Lumbar spine pain 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 Non-smoker Osteoarthritis of both hands PAF (paroxysmal atrial fibrillation) Peyronie's disease Right shoulder pain Screening PSA (prostate specific antigen) Seasonal allergies Seborrheic keratosis Senile ecchymosis Syncope Tortuous aorta Wheezing Historical Atrial fibrillation BMI 25.0-25.9,adult BPH Bruise Cervical pain Cervical stenosis of spine Constipation Ecchymoses, spontaneous Fall as cause of accidental injury at home as place of occurrence Fracture in accidental fall Head injury without concussion or intracranial hemorrhage Hemorrhoids Hereditary sensory and autonomic neuropathy Indigestion Insomnia Left leg cellulitis Lumbar radiculitis Malaise and fatigue Musculoskeletal chest pain Neck pain Obstipation Over weight Rib pain on left side Right knee DJD Right wrist pain Scalp abrasion Skin cancer Skin tear of upper extremity Sleep apnea Sore throat Sternal fracture Tic douloureux Tingling Trigeminal neuralgia Urinary retention Procedure/Surgical History Cardioversion (03/30/2023), Left Total Hip Arthroplasty (02/02/2016), bilateral cataract implants, Carpal tunnel release, Stephany fundoplication, skin cancer removed, stomach surgery, TURP - Transurethral resection of prostate. Medications Eliquis 5 mg oral tablet, 5 mg= 1 tab(s), Oral, BID flecainide 50 mg Tab, 50 mg= 1 tab(s), Oral, q12hr Flomax 0.4 mg Cap, 0.4 mg= 1 cap(s), Oral, Daily, 3 refills gabapentin 300 mg Cap, 300 mg= 1 cap(s), Oral, Daily Lipitor 20 mg Tab, 20 mg= 1 tab(s), Oral, Once a day (at bedtime), 3 refills losartan 50 mg Tab, 50 mg= 1 tab(s), Oral, Daily Metamucil 3.4 g/5.2 g oral powder, 3.4 gm, Oral, Daily One A Day Men's Complete, Oral, Daily predniSONE 10 mg Tab, 10 mg, Oral, As Directed tizanidine 4 mg oral capsule, 4 mg= 1 cap(s), Oral, TID triamcinolone Top 0.1% Crm 15 gram, See Instructions, 1 refills, Not taking Vitamin D3 50 mcg (2000 intl units) oral tablet, chewable, 50 mcg= 1 tab(s), Oral, Daily zolpidem 12.5 mg oral ER Tab, 12.5 mg= 1 tab(s), Oral, Once a day (at bedtime), PRN, 5 refills Allergies No Known Allergies Social History Alcohol - Denies Alcohol Use, 07/12/2012 Substance Abuse - Denies Substance Abuse, 07/12/2012 Tobacco - Denies Tobacco Use, 07/12/2012 Never (less than 100 in lifetime) Tobacco Use:. Never Smokeless Tobacco Use:., 04/13/2024 Family History Acute myocardial infarction: Father. Geovanni (more content not included)... [facility] Comment on above: Result Comment: Elec tronically Signed By: Janene MUHAMMAD\Date and Time Signed: 04/13/24 14:34 EDT XR Spine Lumbosacral Minimum 4 Viewson 04-13-2024 XR Spine Lumbosacral Minimum 4 Views Exam Date/Time: 04/13/2024 14:10 EDT Reason for Exam: Pain, Non Traumatic Report IMPRESSION: NO ACUTE OSSEOUS ABNORMALITY. ADVANCED DEGENERATIVE CHANGES. EXAMINATION: XR Spine Lumbosacral Minimum 4 Views TECHNIQUE: AP, lateral, bilateral oblique views of the lumbar spine and AP and lateral coned down view of the lumbosacral junction HISTORY: Low back pain COMPARISONS: CT 03/31/2023. FINDINGS: Mild dextroscoliosis. Lumbar vertebral body heights are maintained. Multilevel degenerative disc disease with intervertebral disc height loss and degenerative endplate spurring. Facet arthropathy throughout the lumbar spine. No acute fracture. No spondylolysis or spondylolisthesis. Atherosclerotic calcification of the abdominal aorta. Ordering Provider: FABIO BEARDEN FINAL REPORT Dictated: 04/13/2024 2:16 pm Jose Oneal DO Signed (Electronic Signature): 04/13/2024 2:16 pm Signed by: Jose Oneal DO Transcribed by: ALEJANDRINA Technologist: PARRIS Technical Comments Radiation Dose: Ka,r in mGy = . DAP = . [facility] 04-09-20 [facility] Case Information Case Priority: None Programs: -- Referral Source: [employer]er Referral Reason: Care coordination Case Type: Chronic Care Management Risk Score: -- Case Status: Active (June 23, 2022) Date Assigned: June 16, 2022 Assigned By: Jossy Francis RN Date Enrolled: June 23, 2022 Assigned Primary Personnel: Jossy Francis RN Assigned Secondary Personnel: -- Case Physician: Jamison TELLEZ DO, FAAFP Problems Ongoing Axonal sensorimotor neuropathy Basal cell carcinoma BPH associated with nocturia BPH without urinary obstruction Cervicalgia Chronic constipation Chronic insomnia DDD (degenerative disc disease), cervical Dyshidrotic eczema Edema of both lower legs due to peripheral venous insufficiency Enthesopathy of right shoulder Familial hypercholesterolemia Gouty arthritis of right hand Hypertension Idiopathic small fiber sensory neuropathy Impingement of left shoulder Left lumbar radiculitis 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 Non-smoker Osteoarthritis of both hands PAF (paroxysmal atrial fibrillation) Peyronie's disease Right shoulder pain Screening PSA (prostate specific antigen) Seasonal allergies Seborrheic keratosis Senile ecchymosis Syncope Tortuous aorta Wheezing Historical Atrial fibrillation BMI 25.0-25.9,adult BPH Bruise Cervical pain Cervical stenosis of spine Constipation Ecchymoses, spontaneous Fall as cause of accidental injury at home as place of occurrence Fracture in accidental fall Head injury without concussion or intracranial hemorrhage Hemorrhoids Hereditary sensory and autonomic neuropathy Indigestion Insomnia Left leg cellulitis Lumbar radiculitis Malaise and fatigue Musculoskeletal chest pain Neck pain Obstipation Over weight Rib pain on left side Right knee DJD Right wrist pain Scalp abrasion Skin cancer Skin tear of upper extremity Sleep apnea Sore throat Sternal fracture Tic douloureux Tingling Trigeminal neuralgia Urinary retention Procedure/Surgical History Cardioversion (03/30/2023), Left Total Hip Arthroplasty (02/02/2016), bilateral cataract implants, Carpal tunnel release, Stephany fundoplication, skin cancer removed, stomach surgery, TURP - Transurethral resection of prostate. Home Medications amLODIPine 5 mg Tab, 5 mg= 1 tab(s), Oral, Bedtime Eliquis 5 mg oral tablet, 5 mg= 1 tab(s), Oral, BID flecainide 50 mg Tab, 50 mg= 1 tab(s), Oral, q12hr Flomax 0.4 mg Cap, 0.4 mg= 1 cap(s), Oral, Daily, 3 refills gabapentin 300 mg Cap, 300 mg= 1 cap(s), Oral, Daily Lipitor 20 mg Tab, 20 mg= 1 tab(s), Oral, Once a day (at bedtime), 3 refills losartan 50 mg Tab, 50 mg= 1 tab(s), Oral, Daily Metamucil, Oral One A Day Men's Complete, Oral, Daily triamcinolone Top 0.1% Crm 15 gram, See Instructions, 1 refills Vitamin D3 50 mcg (2000 intl units) oral tablet, chewable, 50 mcg= 1 tab(s), Oral, Daily zolpidem 12.5 mg oral ER Tab, 12.5 mg= 1 tab(s), Oral, Once a day (at bedtime), PRN, 5 refills Allergies No Known Allergies Social History Alcohol - Denies Alcohol Use, 07/12/2012 Substance Abuse - Denies Substance Abuse, 07/12/2012 Tobacco - Denies Tobacco Use, 07/12/2012 Never (less than 100 in lifetime) Tobacco Use:. Never Smokeless Tobacco Use:., 03/26/2024 Family History Acute myocardial infarction: Father. Alzheimer's disease: Sister. Kidney disease: Mother. Screenings and Assessments 07/11/22 13:04:00 Result Name Value Comment Phone Call Monitoring Consent Agreed to continue call Phone Verification Patient Information Full name, street address and date of verified CM Program Enrollment Provides verbal consent for enrollment CCM Program Enrollment Verbally agreed to receive CCM services CCM Written Consent Written consent obtained CCM Verbal Consent By Self 06/23/22 11:00:00 Result Name Value Comment HIPPA Verified Type of Contact Telephone Information Given by Self CM Preferred Spoken Language Georgian CM Preferred Written Language Georgian Preferred Communication Mode Verbal Ability to Read/Write Able to read, Able to write Appointment Reminders Phone Preferred Way to Send PHI Standard mail Able to Read Georgian Able to read Georgian Learning Style Pref Patient Printed materials Teaching Method Printed materials Barriers to Learning None evident Best Time to Visit or Contact 1-5 pm Best Day to Visit or Contact No preference Response to Current Year Correct Cognitive Deficit No [facility] Test Score Indication None or n (more content not included)... [facility] Ambulatory Visit Summaryon 0 03-26-2024 Ambulatory Visit Summary JSOE ROCHA :1940 Visit Date:03/26/2024 Ambulatory Visit Instructions Your Diagnosis Impingement of left shoulder BMI 27.0-27.9,adult Overweight Hypertension Chronic insomnia Familial hypercholesterolemia These Are Your Goals Hypertension: Maintain blood pressure in therapeutic range - Progressing Interventions: Maintain an active lifestyle - Progressing Monitor Sodium intake - Progressing Monitor blood pressure daily - Progressing Review education booklet - Done Take medications as prescribed - Progressing PAF: Avoid complications Interventions: Monitor for symptoms of complication - Progressing Read education material - Done Take Medications as Prescribed - Progressing Neuropathy: Remain free from injury Interventions: Continue podiatry follow ups as scheduled - Progressing Examine lower extremities - Progressing Take medications as prescribed - Progressing Your Care Team Attending Physician - Jamison TELLEZ DO, FAAFP Primary Care Physician - Jamison TELLEZ DO, FAAFP This Is Your Medications List amlodipine (amLODIPine 5 mg Tab) apixaban (Eliquis 5 mg oral tablet) atorvastatin (Lipitor 20 mg Tab) cholecalciferol (Vitamin D3 50 mcg (2000 intl units) oral tablet, chewable) flecainide (flecainide 50 mg Tab) gabapentin (gabapentin 300 mg Cap) losartan (losartan 50 mg Tab) multivitamin with minerals (One A Day Men's Complete) psyllium (Metamucil) tamsulosin (Flomax 0.4 mg Cap) triamcinolone topical (triamcinolone Top 0.1% Crm 15 gram) zolpidem (zolpidem 12.5 mg oral ER Tab) Procedures Performed Cardioversion (03/30/2023), Left Total Hip Arthroplasty (02/02/2016), bilateral cataract implants, Carpal tunnel release, Stephany fundoplication, skin cancer removed, stomach surgery, TURP - Transurethral resection of prostate. Discharge Vitals Temperature (Oral) 36.4 ?C Heart Rate (Peripheral) 60 Respiratory Rate 16 Blood Pressure 124/64 Height 178 cm Height 70 in Weight 86.7 kg Weight 190.74 lb BMI 27.36 What to do next Scheduled Follow-Up Appointments Monday 2:30 PM EDT With: Where: [facility] [address] [email or web address] [address]- \.br\ You Need to Schedule the Following Appointments\.br \ Follow Up with Jamison TELLEZ DO, FAAFP, FAM, PED When: In 3 months\.br\ Where:\.br\ [address]\ [place] [address]-\.br\ \.br\ Medications\.br\ What How Much When Why Instructions\.br \ Unchanged amlodipine (amLODIPine 5 mg Tab) 1 Tablets By Mouth At bedtime\.br\ Unchanged apixaban (Eliquis 5 mg oral tablet) 1 Tablets By Mouth 2 times a day\.br\ Unchanged atorvastatin (Lipitor 20 mg Tab) 1 Tablets By Mouth Once a day (at bedtime)\.br\ Unchanged cholecalciferol (Vitamin D3 50 mcg (2000 intl units) oral tablet, chewable) 1 Tablets By Mouth Every day\.br\ Unchanged flecainide (flecainide 50 mg Tab) 1 Tablets By Mouth Every 12 hours\.br\ Unchanged gabapentin (gabapentin 300 mg Cap) 1 Capsules By Mouth Every day\.br\ Unchanged losartan (losartan 50 mg Tab) 1 Tablets By Mouth Every day\.br\ Unchanged multivitamin with minerals (One A Day Men's Complete) By Mouth Every day\.br\ Unchanged psyllium (Metamucil) By Mouth\.br\ Unchanged tamsulosin (Flomax 0.4 mg Cap) 1 Capsules By Mouth Every day\.br\ Unchanged triamcinolone topical (triamcinolone Top 0.1% Crm 15 gram) See instructions Topical BID topically twice daily as needed for itching, red, scaly areas \.br\ Unchanged zolpidem (zolpidem 12.5 mg oral ER Tab) 1 Tablets By Mouth Once a day (at bedtime) as needed for for sleep Anxiety, generalized Insomnia 30 day supply \.br\ Allergies\.br\ No Known Allergies\.br\ Problems\.br\ Ongoing - Any problem that you are currently receiving treatment for.\.br\ Axonal sensorimotor neuropathy\.br\ Basal cell carcinoma\.br\ BPH associated with nocturia\.br\ BPH without urinary obstruction\.br\ Cervicalgia\.br\ Chronic constipation\.br \ Chronic insomnia\.br\ DDD (degenerative disc disease), cervical\.br\ Dyshidrotic eczema\.br\ Edema of both lower legs due to peripheral venous insufficiency\.b r\ Enthesopathy of right shoulder\.br\ Familial hypercholesterol emia\.br\ Gouty arthritis of right hand\.br\ Hypertension\.br \ Idiopathic small fiber sensory neuropathy\.br\ Impingement of left shoulder\.br\ Left lumbar radiculitis\.br\ 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\.br\ Neoplasm of uncertain behavior\.br\ Non-smoker\.br\ Osteoarthritis of both hands\.br\ PAF (paroxysmal atrial fibrillation)\.b r\ Peyronie's disease\.br\ Right shoulder pain\.br\ Screening PSA (prostate specific antigen)\.br\ Seasonal allergies\.br\ Seborrheic keratosis\.br\ Senile ecchymosis\.br\ Syncope\.br\ Tortuous aorta\.br\ Wheezing\.br\ Historical - Any problem that you are no longer receiving treatment for.\.br\ Atrial fibrillation\.br \ BMI 25.0-25.9,adult\ .br\ BPH\.br\ Bruise\.br\ Cervical pain\.br\ Cervical stenosis of spine\.br\ Constipation\.br \ Ecchymoses, spontaneous\.br\ Fall as cause of accidental injury at home as place of occurrence\.br\ Fracture in accidental fall\.br\ Head injury without concussion or intracranial hemorrhage\.br\ Hemorrhoids\.br\ Hereditary sensory and autonomic neuropathy\.br\ Indigestion\.br\ Insomnia\.br\ Left leg cellulitis\.br\ Lumbar radiculitis\.br\ Malaise and fatigue\.br\ Musculoskeletal chest pain\.br\ Neck pain\.br\ Obstipation\.br\ Over weight\.br\ Rib pain on left side\.br\ Right knee DJD\.br\ Right wrist pain\.br\ Scalp abrasion\.br\ Skin cancer\.br\ Skin tear of upper extremity\.br\ Sleep apnea\.br\ Sore throat\.br\ Sternal fracture\.br\ Tic douloureux\.br\ Tingling\.br\ Trigeminal neuralgia\.br\ Urinary retention\.br\ Patient Survey\.br\ You may receive a survey via text or e-mail asking about your office visit. Please share your experience with us by completing your survey. We appreciate your feedback and thank you for choosing us for your care.\.br\ \.br\ [facility] Family Medicine Office/Clini c Noteon 03-26-2024 Family Medicine Office/Clinic Note Chief Complaint Patient here for 3 month f/u on htn, chol, paf History of Present Illness Here for follow up Have you had any ER visits or any hospitalizations since last visit? no Are you compliant with your medications and no difficulty affording your medications? yes Do you have side effects from the medication? no Are you compliant with your diet? yes Do you exercise? yes Do you have any of the following symptoms? Chest pain? no Palpitations? no MATTHEWS/SOB? no Orthopnea? no PND? no Edema? no Have you had any recent cardiopulmonary testing? no Patient complains of left shoulder pain and difficulty raising his left arm above his head ever since he was injected at [facility] last week. Denies any weakness, no fever no chills chest pain in the left shoulder and inability to raise overhead. Twice today3-day continues to have a maintenance Review of Systems PHQ Score Initial Depression Screen Score: 0 SCORE ROS - Provider Constitutional: no fever, no chills, no sweats, no weakness. Skin: no Jaundice, no rash, no lesions, no petechiae. ENMT: no ear pain, no sore throat, no congestion, no hoarseness. Respiratory: no shortness of breath, no cough, no orthopnea, no wheezing. Cardiovascular: no chest pain, no palpitations, no edema. Gastrointestinal: no nausea, no vomiting, no diarrhea, no GI bleeding.no constipationnoheartburn Genitourinary: no dysuria, no hematuria, no discharge, no pain.nofreq/urgency Musculoskeletal: yes back pain, no trauma.yesjoint pain Neurologic: no headache, no dizziness, no numbness, no weakness. Psychiatric: no sleeping problems, no irritability, no mood swings/depression. Heme/Lymph: no bleeding tendency, no bruising tendency, no petechiae, no swollen lymph nodes no Allergy/Imunology no seasonal allergies, no food allergies, no recurrent infections, no impaired immunity. Additional ROS info: Except as noted in the above Review of Systems and in the History of Present Illness all other systems have been reviewed and are negative or noncontributory. Physical Exam Vitals & Measurements T: 36.4 ?C(Oral) HR: 60(Peripheral) RR: 16 BP: 124/64 SpO2: 96% HT: 70 in HT: 178 cm WT: 86.7 kg WT: 190.74 lb BMI: 27.36 General: Well developed, well nourished, in no acute distress Mouth: Mucous membranes moist. Normal oropharynx, and posterior pharynx without lesions or exudates. Tongue normal Neck: Neck supple. No masses or palpable cervical nodes. Trachea midline. Thyroid without nodules, masses, tenderness, or enlargement Lungs: Normal respiratory effort and clear to auscultation Cardio: Regular rate and rhythm, normal S1 and S2, no murmur, no rub Abdomen: Soft, non-distended, non-tender. no G/R/S/Masses Musculoskeletal: No deformity or scoliosis noted. Normal range of motion with right shoulder, crepitus of right and left shoulders appreciated, patient did not like to actively abduct left upper extremity greater than 180 degrees. Normal passive range of motion of left shoulder, however even after resistance exercises which he did rather well he would not actively abduct greater than 180 degrees. No increased warmth nor subluxation of shoulder joints appreciated. Negative step-off. Extremity: No clubbing, cyanosis, edema, or deformity, with normal ROM in both upper and lower bilateral extremities Neurologic: Grossly normal Skin: No rashes, ulcerations, or suspicious lesions Mental Status: Alert and oriented x3. Normal mood and affect Assessment/Plan 1. Impingement of left shoulder (M25.812: Other specified joint disorders, left shoulder) Patient will return to [facility] for evaluation 2. BMI 27.0-27.9,adult (Z68.27: Body mass index [BMI] 27.0-27.9, adult) The standard range for ages 18 and older is >=18.5 and < 25 kg/m2. Your BMI today was above this range, this falls in the overweight to obese category and there are medical benefits to weight loss. We can offer counselling, referral, and/or medical support in addressing this problem. Your BMI and weight management will be followed at subsequent visits. 3. Overweight (E66.3: Overweight) Diet and exercise with a BMI goal of 25 4. Hypertension (I10: Essential (primary) hypertension) Excellent control with losartan 50 mg p.o. daily, diet and exercise and zolpidem and amlodipine 5 mg p.o. daily Ordered: Complex E&M Add on G2211 5. Chronic insomnia (F51.04: Psychophysiologic insomnia) Ambien 12.5 mg p.o. nightly 6. Familial hypercholesterolemia (E78.01: Familial hypercholesterolemia) Diet and excise and Lipitor 20 mg p.o. nightly 7. PAF (paroxysmal atrial fibrillation) (I48.0: Paroxysmal atrial fibrillation) Flecainide and Xarelto working well please see med rec Ordered: Complex E&M Add on G2211 Total time spent preparing the chart, conducting of the encounter with the patient and family and time spent documenting, reviewing, and ordering tests was 30 minutes. Review of Prior External N (more content not included)... [facility] Comment on above: Result Comment: Elec tronically Signed By: Jamison TELLEZ DO, FAAFP\.br\Date and Time Signed: 03/26/24 14:38 EDT Patient Educationon 03-26-20 Patient Education Cardiovascular Atrial Fibrillation Atrial fibrillation is a type of heartbeat that is irregular or fast. If you have this condition, your heart beats without any order. This makes it hard for your heart to pump blood in a normal way. Atrial fibrillation may come and go, or it may become a long-lasting problem. If this condition is not treated, it can put you at higher risk for stroke, heart failure, and other heart problems. What are the causes? This condition may be caused by diseases that damage the heart. They include: ? High blood pressure. ? Heart failure. ? Heart valve disease. ? Heart surgery. Other causes include: ? Diabetes. ? Thyroid disease. ? Being overweight. ? Kidney disease. Sometimes the cause is not known. What increases the risk? You are more likely to develop this condition if: ? You are older. ? You smoke. ? You exercise often and very hard. ? You have a family history of this condition. ? You are a man. ? You use drugs. ? You drink a lot of alcohol. ? You have lung conditions, such as emphysema, pneumonia, or COPD. ? You have sleep apnea. What are the signs or symptoms? Common symptoms of this condition include: ? A feeling that your heart is beating very fast. ? Chest pain or discomfort. ? Feeling short of breath. ? Suddenly feeling light-headed or weak. ? Getting tired easily during activity. ? Fainting. ? Sweating. In some cases, there are no symptoms. How is this treated? Treatment for this condition depends on underlying conditions and how you feel when you have atrial fibrillation. They include: ? Medicines to: ? Prevent blood clots. ? Treat heart rate or heart rhythm problems. ? Using devices, such as a pacemaker, to correct heart rhythm problems. ? Doing surgery to remove the part of the heart that sends bad signals. ? Closing an area where clots can form in the heart (left atrial appendage). In some cases, your doctor will treat other underlying conditions. Follow these instructions at home: Medicines ? Take [id number] and prescription medicines only as told by your doctor. ? Do not take any new medicines without first talking to your doctor. ? If you are taking blood thinners: ? Talk with your doctor before you take any medicines that have aspirin or NSAIDs, such as ibuprofen, in them. ? Take your medicine exactly as told by your doctor. Take it at the same time each day. ? Avoid activities that could hurt or bruise you. Follow instructions about how to prevent falls. ? Wear a bracelet that says you are taking blood thinners. Or, carry a card that lists what medicines you take. Lifestyle ? Do not use any products that have nicotine or tobacco in them. These include cigarettes, e-cigarettes, and chewing tobacco. If you need help quitting, ask your doctor. ? Eat heart-healthy foods. Talk with your doctor about the right eating plan for you. ? Exercise regularly as told by your doctor. ? Do not drink alcohol. ? Lose weight if you are overweight. ? Do not use drugs, including cannabis. General instructions ? If you have a condition that causes breathing to stop for a short period of time (apnea), treat it as told by your doctor. ? Keep a healthy weight. Do not use diet pills unless your doctor says they are safe for you. Diet pills may make heart problems worse. ? Keep all follow-up visits as told by your doctor. This is important. Contact a doctor if: ? You notice a change in the speed, rhythm, or strength of your heartbeat. ? You are taking a blood-thinning medicine and you get more bruising. ? You get tired more easily when you move or exercise. ? You have a sudden change in weight. Get help right away if: ? You have pain in your chest or your belly (abdomen). ? You have trouble breathing. ? You have side effects of blood thinners, such as blood in your vomit, poop (stool), or pee (urine), or bleeding that cannot stop. ? You have any signs of a stroke. BE FAST is an easy way to remember the main warning signs: ? B - Balance. Signs are dizziness, sudden trouble walking, or loss of balance. ? E - Eyes. Signs are trouble seeing or a change in how you see. ? F - Face. Signs are sudden weakness or loss of feeling in the face, or the face or eyelid drooping on one side. ? A - Arms. Signs are weakness or loss of feeling in an arm. This happens suddenly and usually on one side of the body. ? S - Speech. Signs are sudden trouble speaking, slurred speech, or trouble understanding what people say. ? T - Time. Time to call emergency services. Write down what time symptoms started. ? You have other signs of a stroke, such as: ? A sudden, very bad headache with no known cause. ? Feeling like you may vomit (nausea). ? Vomiting. ? A seizure. These symptoms may be an (more content not included)... 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 Banner Designer Referral Reason: Care coordination Case Type: Chronic Care Management Risk Score: -- Case Status: Active (June 23, 2022) Date Assigned: June 16, 2022 Assigned By: Jossy Francis RN Date Enrolled: June 23, 2022 Assigned Primary Personnel: Jossy Francis RN Assigned Secondary Personnel: -- Case Physician: Jamison TELLEZ DO, FAAFP Problems Ongoing Axonal sensorimotor neuropathy Basal cell carcinoma BPH associated with nocturia BPH without urinary obstruction Cervicalgia Chronic constipation Chronic insomnia DDD (degenerative disc disease), cervical Dyshidrotic eczema Edema of both lower legs due to peripheral venous insufficiency Enthesopathy of right shoulder Familial hypercholesterolemia Gouty arthritis of right hand Hypertension Idiopathic small fiber sensory neuropathy Left lumbar radiculitis 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 Non-smoker Osteoarthritis of both hands PAF (paroxysmal atrial fibrillation) Peyronie's disease Right shoulder pain Screening PSA (prostate specific antigen) Seasonal allergies Seborrheic keratosis Senile ecchymosis Syncope Tortuous aorta Wheezing Historical Atrial fibrillation BMI 25.0-25.9,adult BPH Bruise Cervical pain Cervical stenosis of spine Constipation Ecchymoses, spontaneous Fall as cause of accidental injury at home as place of occurrence Fracture in accidental fall Head injury without concussion or intracranial hemorrhage Hemorrhoids Hereditary sensory and autonomic neuropathy Indigestion Insomnia Left leg cellulitis Lumbar radiculitis Malaise and fatigue Musculoskeletal chest pain Neck pain Obstipation Over weight Rib pain on left side Right knee DJD Right wrist pain Scalp abrasion Skin cancer Skin tear of upper extremity Sleep apnea Sore throat Sternal fracture Tic douloureux Tingling Trigeminal neuralgia Urinary retention Procedure/Surgical History Cardioversion (03/30/2023), Left Total Hip Arthroplasty (02/02/2016), bilateral cataract implants, Carpal tunnel release, Stephany fundoplication, skin cancer removed, stomach surgery, TURP - Transurethral resection of prostate. Home Medications amLODIPine 5 mg Tab, 5 mg= 1 tab(s), Oral, Bedtime Eliquis 5 mg oral tablet, 5 mg= 1 tab(s), Oral, BID flecainide 50 mg Tab, 50 mg= 1 tab(s), Oral, q12hr Flomax 0.4 mg Cap, 0.4 mg= 1 cap(s), Oral, Daily, 3 refills gabapentin 300 mg Cap, 300 mg= 1 cap(s), Oral, Daily Lipitor 20 mg Tab, 20 mg= 1 tab(s), Oral, Once a day (at bedtime), 3 refills losartan 50 mg Tab, 50 mg= 1 tab(s), Oral, Daily Metamucil, Oral One A Day Men's Complete, Oral, Daily triamcinolone Top 0.1% Crm 15 gram, See Instructions, 1 refills Vitamin D3 50 mcg (2000 intl units) oral tablet, chewable, 50 mcg= 1 tab(s), Oral, Daily zolpidem 12.5 mg oral ER Tab, 12.5 mg= 1 tab(s), Oral, Once a day (at bedtime), PRN, 5 refills Allergies No Known Allergies Social History Alcohol - Denies Alcohol Use, 07/12/2012 Substance Abuse - Denies Substance Abuse, 07/12/2012 Tobacco - Denies Tobacco Use, 07/12/2012 Never (less than 100 in lifetime) Tobacco Use:. Never Smokeless Tobacco Use:., 01/28/2024 Family History Acute myocardial infarction: Father. Alzheimer's disease: Sister. Kidney disease: Mother. Screenings and Assessments 07/11/22 13:04:00 Result Name Value Comment Phone Call Monitoring Consent Agreed to continue call Phone Verification Patient Information Full name, street address and date of verified CM Program Enrollment Provides verbal consent for enrollment CCM Program Enrollment Verbally agreed to receive CCM services CCM Written Consent Written consent obtained CCM Verbal Consent By Self 06/23/22 11:00:00 Result Name Value Comment HIPPA Verified Type of Contact Telephone Information Given by Self CM Preferred Spoken Language Georgian CM Preferred Written Language Georgian Preferred Communication Mode Verbal Ability to Read/Write Able to read, Able to write Appointment Reminders Phone Preferred Way to Send PHI Standard mail Able to Read Georgian Able to read Georgian Learning Style Pref Patient Printed materials Teaching Method Printed materials Barriers to Learning None evident Best Time to Visit or Contact 1-5 pm Best Day to Visit or Contact No preference Response to Current Year Correct Cognitive Deficit No [facility] Test Score Indication None or no significant cognitive impairment Response (more content not included)... [facility] Consultation Noteon 02-06-20 Consultation Note [id number] FF [facility] ECG 12 Leadon 02-06-2024 Sinus rhythm with first-degree AV block Voltage criteria for LVH QTc 412 ms [facility] Work Phone: Consultation Noteon 02-03-20 Consultation Note [id number] IFF [facility] Family Medicine Office/Clini c Noteon 01-28-2024 Family Medicine Office/Clinic Note Chief Complaint Current pt left shoulder pain HPI Staff 83 yo male here today with left shoulder pain Pt fell last night/morning Pt states the light would not go off, got up and slipped on his slippers and fell into the bed onto his shoulder Pt put his arm on a pillow to sleep, Pt states he feels something is not right in the shoulder Pt states he is not able to lift the shoulder- little ROM Pt has iced it History of Present Illness 83-year-old male to the clinic for focalized discomfort over the left lateral and posterior humeral head. 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 He complains of mild tingling in all of his fingers of the denies any numbness. Review of Systems PHQ Score Initial Depression Screen Score: 0 SCORE Constitutional: Denies fevers, chills or general sense of illness Respiratory: Denies shortness of breath Musculoskeletal: See HPI above Neurologic: Mild tingling in the fingers of the left hand Physical Exam Vitals & Measurements T: 36.4 ?C(Oral) HR: 58(Peripheral) BP: 116/76 SpO2: 97% HT: 70 in HT: 178 cm WT: 86.6 kg WT: 190.52 lb BMI: 27.33 Primary assessment: Airway patent. Respirations unlabored. Normal respiratory effort Constitutional: Vital signs reviewed. Well appearing. No distress. Skin: Warm and dry. Thorax/ Respiratory: Respiratory effort non-labored. Musculoskeletal: Examination left shoulder shows no obvious deformity ecchymosis or edema. He is limited to shoulder abduction to approximately 70 degrees. There is no point tenderness over the scapula or AC joint. He is focally tender over the lateral and the posterior aspect of the left humeral head. There is no discomfort to palpation down the remainder of the humerus. Neurologic: Alert and oriented Assessment/Plan 1. BMI 27.0-27.9,adult (Z68.27: Body mass index [BMI] 27.0-27.9, adult) Ordered: Body Mass Index (BMI) documented 3008F XR Shoulder Complete Left 1. Injury of left shoulder (S49.92XA: Unspecified injury of left shoulder and upper arm, initial encounter) - X-rays of the left shoulder: xrays negative for fractures or dislocation - He has an appointment with Dr. Jimenez this week. -I have asked him to limit his use of the sling to prevent the shoulder from freezing. -Ice intermittently for the next 2 to 3 days. 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 Non-smoker Osteoarthritis of both hands PAF (paroxysmal atrial fibrillation) Peyronie's disease Right shoulder pain Screening PSA (prostate specific antigen) Seasonal allergies Seborrheic keratosis Senile ecchymosis Syncope Tortuous aorta Wheezing Historical Atrial fibrillation BMI 25.0-25.9,adult BPH Bruise Cervical pain Cervical stenosis of spine Constipation Ecchymoses, spontaneous Fall as cause of accidental injury at home as place of occurrence Fracture in accidental fall Head injury without concussion or intracranial hemorrhage Hemorrhoids Hereditary sensory and autonomic neuropathy Indigestion Insomnia Left leg cellulitis Lumbar radiculitis Malaise and fatigue Musculoskeletal chest pain Neck pain Obstipation Over weight Rib pain on left side Right knee DJD Right wrist pain Scalp abrasion Skin cancer Skin tear of upper extremity Sleep apnea Sore throat Sternal fracture Tic douloureux Tingling Trigeminal neuralgia Urinary retention Procedure/Surgical History Cardioversion (03/30/2023), Left Total Hip Arthroplasty (02/02/2016), bilateral cataract implants, Carpal tunnel release, Stephany fundoplication, skin cancer removed, stomach surgery, TURP - Transurethral resection of prostate. Medications amLODIPine 5 mg Tab, 5 mg= 1 tab(s), Oral, Bedtime Eliquis 5 mg oral tablet, 5 mg= 1 tab(s), Oral, BID flecainide 50 mg Tab, 50 mg= 1 tab(s), Oral, q12hr Flomax 0.4 mg Cap, 0.4 mg= 1 cap(s), Oral, Daily, 3 refills gabapentin 300 mg Cap, 300 mg= 1 cap(s), Oral, Daily Lipitor 20 mg Tab, 20 mg= 1 tab(s), Oral, Once a day (at bedtime), 3 refills losartan 50 mg Tab, 50 mg= 1 tab(s), Oral, Daily Metamucil, Oral One A Day Men's Complete, Oral, Daily triamcinolone To (more content not included)... [facility] Comment on above: Result Comment: Elec tronically Signed By: Chago RAMIREZ, Romeo W.\.br\Date and Time Signed: 01/28/24 15:03 EDT XR Shoulder Complete Lefton 01-28-2024 XR Shoulder Complete Left Exam Date/Time: 01/28/2024 14:51 EDT Reason for Exam: Fell into a metal bed frame. Pain focalized over the latera/posterior humeral head.;Pain, Traumatic Report IMPRESSION: No acute osseous findings. EXAMINATION/TECHNIQUE: XR Shoulder Complete Left HISTORY: Left shoulder pain. COMPARISON: 10/29/2023. RESULT: No evidence for acute fracture. No dislocation. Mild degenerative changes of the glenohumeral and acromioclavicular joints. Narrowing of the acromiohumeral interval, which can be seen with chronic rotator cuff arthropathy and/or tearing. Visualized lung grossly clear. No other significant abnormality. Ordering Provider: Romeo Anders FINAL REPORT Dictated: 01/28/2024 2:54 pm Shan Lewis MD Signed (Electronic Signature): 01/28/2024 2:54 pm Signed by: Shan Lewis MD Transcribed by: ALEJANDRINA Technologist: RAYSA Technical Comments Radiation Dose: Ka,r in mGy = . DAP = . [facility] Consent for Treatmenton Consent for Treatment [id number] IFF [facility] Discharge Instructionson Discharge Instructions [id number] TIFF [facility] ED Clinical Summaryon 2023 ED Clinical Summary (Inserted Image. Jennifer ble to display) [address] [address] ED Clinical Summary Person Information Name: JOSE ROCHA Lisa/[facility] Age: 83 Years : 1940 Sex: Male Language: Georgian PCP: Jamison TELLEZ DO, FAAFP Marital Status: Phone: [phone] Visit Id: Visit Reason: Foot pain-swelling; LEFT FOOT PAIN Speciality: Acuity: 4 Enc Type: Emergency Med Service: Emergency Arrival: 01/07/2024 13:05:34 Discharge: 01/07/2024 14:13:01 LOS: 000 01:08 Checkin: 01/07/2024 13:05:34 Checkout: 01/07/2024 14:13:01 Dispo Type: Home (Routine DC) EVENTS: Event Name Event Status Request Date/Time Start Date/Time Complete Date/Time Arrive Complete 01/07/2024 13:05:34 01/07/2024 13:05:34 01/07/2024 13:05:34 Document Home Meds Request 01/07/2024 13:05:34 Triage Complete 01/07/2024 13:05:34 01/07/2024 13:15:01 01/07/2024 13:15:01 Bed Assign Complete 01/07/2024 13:12:18 01/07/2024 13:12:18 01/07/2024 13:12:18 Dr Exam Complete 01/07/2024 13:12:18 01/07/2024 13:15:20 01/07/2024 13:15:20 RN Exam Complete 01/07/2024 13:12:18 01/07/2024 13:18:11 01/07/2024 13:18:11 Registration Complete 01/07/2024 13:15:20 01/07/2024 14:06:25 01/07/2024 14:06:25 Dr Exam Complete 01/07/2024 13:17:46 01/07/2024 13:17:46 01/07/2024 13:17:46 X-Ray Complete 01/07/2024 13:25:40 01/07/2024 13:27:28 01/07/2024 13:47:11 Wet Read Request 01/07/2024 13:47:11 Discharge Complete 01/07/2024 13:58:59 01/07/2024 14:13:30 01/07/2024 14:13:30 Reg Complete Request 01/07/2024 14:06:25 Reg Bed Request Complete 01/07/2024 14:06:25 01/07/2024 14:06:25 01/07/2024 14:06:25 Transfer Complete 01/07/2024 14:13:30 01/07/2024 14:13:30 01/07/2024 14:13:30 ADDRESS: [facility] [phone] PHYS DOC NOTES: MEDICAL INFORMATION: Prescriptions Given: Medications to Continue Taking That Have Changed [facility], [address] [place], [place] [phone], [phone] START: predniSONE (predniSONE 20 mg Tab) 2 PO x 3 days then 1 PO x 3 days with food or milk then 1/2 PO x 4 days with food or milk. Refills: 0. Other Medications START: predniSONE (predniSONE 10 mg Tab) 1 Tablets By Mouth As Directed. Take 4 tabs for 3 days, 3 tabs for 3 days, 2 tabs for 3 days, 1 tab for 3 days.. Refills: 0. Medications to Continue with No Changes Other Medications amlodipine (amLODIPine 5 mg Tab) 1 Tablets By Mouth at bedtime. apixaban (Eliquis 5 mg oral tablet) 1 Tablets By Mouth 2 times a day. Refills: 0. atorvastatin (Lipitor 20 mg Tab) 1 Tablets By Mouth once a day (at bedtime). Refills: 3. cholecalciferol (Vitamin D3 50 mcg (2000 intl units) oral tablet, chewable) 1 Tablets By Mouth every day. flecainide (flecainide 50 mg Tab) 1 Tablets By Mouth every 12 hours. Refills: 0. gabapentin (gabapentin 300 mg Cap) 1 Capsules By Mouth every day. losartan (losartan 50 mg Tab) 1 Tablets By Mouth every day. multivitamin with minerals (One A Day Men's Complete) By Mouth every day. psyllium (Metamucil) By Mouth. tamsulosin (Flomax 0.4 mg Cap) 1 Capsules By Mouth every day. Refills: 3. triamcinolone topical (triamcinolone Top 0.1% Crm 15 gram) Topical BID topically twice daily as needed for itching, red, scaly areas. Refills: 1. zolpidem (zolpidem 12.5 mg oral ER Tab) 1 Tablets By Mouth once a day (at bedtime) as needed for sleep. 30 day supply. Refills: 5. PATIENT EDUCATION INFORMATION: Instructions: Musculoskeletal Pain Follow up: With: Address: When: GEOFF DO TIKI, Jamison Campos, VARINDER, PED [address], [place] [address] In 3 days 01/10/2024 DIAGNOSIS: 1:Left foot pain [facility] ED Note-Physicianon 01-07-20 ED Note-Physician Basic Information Time Seen: Peggy Jerry PA-C 01/07/2024 13:15 Chief Complaint left foot pain. no known injury. started this morning. History of Present Illness 83-year-old male presents with pain to his left foot that started this morning without injury. He states it does not hurt that much at rest, but with putting pressure on his foot, it hurts on the bottom. Denies calf pain. Denies temperature or sensation changes. Review of Systems Review of systems negative unless otherwise stated in HPI Physical Exam Vitals & Measurements T: 36.8 ?C(Oral) HR: 83(Peripheral) RR: 16 BP: 119/69 SpO2: 97% HT: 178 cm WT: 87 kg BMI: 27.46 PHYSICAL EXAM: GENERAL: ALERT, NO ACUTE DISTRESS SKIN: WARM, DRY, INTACT; NO CYANOSIS, NO RASH, NO ECCHYMOSIS HEAD: NORMOCEPHALIC, ATRAUMATIC NECK: SUPPLE, TRACHEA MIDLINE, FROM RESPIRATORY: NON-LABORED RESPIRATIONS, SYMMETRICAL EXPANSION EXTREMITIES: NO CYANOSIS, NO EDEMA, FROM ALL EXTREMITIES X 4, PULSES INTACT, NORMAL STRENGTH, NO TENDERNESS, NO DEFORMITY, CAPILLARY REFILL INTACT NEUROLOGICAL: A&OX3, SENSORY INTACT PSYCHIATRIC: COOPERATIVE, APPROPRIATE MOOD AND AFFECT Medical Decision Making No acute findings on prelim x-ray. Possibly gout or arthritis and will be given a steroid taper and follow-up family doctor. Afebrile, not tachycardic, not tachypneic, nontoxic-appearing, tolerating p.o. and ambulating at baseline and hemodynamically stable to be discharged home. Educated side effect of medications. Answered all questions. Patient in agreement with treatment. Assessment/Plan 1. Left foot pain (M79.672: Pain in left foot) Ordered: predniSONE, See Instructions, 2 PO x 3 days then 1 PO x 3 days with food or milk then 1/2 PO x 4 days with food or milk, # 11 tab(s), Refills(s) 0, Pharmacy: [facility], 178, cm, 01/07/24 13:15:00 EDT, Height/Length Dosing, 87, kg, 01/07/24 13:... Orders: XR Foot 3+ Views Left Disposition Plan Patient Discharge Condition Stable Discharge Disposition Home Discharge Prescription List Prescriptions predniSONE 20 mg Tab, See Instructions Follow-up With When Contact Information GEOFF PINTO FAAFP, Jamison Campos, VARINDER, PED In 3 days 01/10/[address] [place] [address]- Additional Instructions: Patient Education Musculoskeletal Pain Attestation I performed a substantive part of the MDM during the patient?s E/M visit. I personally made or approved the documented management plan and acknowledge its risk of complications. (Independent Interpretation) My (EKG/X-Ray/US/CT) interpretation as above. (Discussion) Management/test interpretation discussed with APC. 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 Non-smoker Osteoarthritis of both hands PAF (paroxysmal atrial fibrillation) Peyronie's disease Right shoulder pain Screening PSA (prostate specific antigen) Seasonal allergies Seborrheic keratosis Senile ecchymosis Syncope Tortuous aorta Wheezing Historical Atrial fibrillation BMI 25.0-25.9,adult BPH Bruise Cervical pain Cervical stenosis of spine Constipation Ecchymoses, spontaneous Fall as cause of accidental injury at home as place of occurrence Fracture in accidental fall Head injury without concussion or intracranial hemorrhage Hemorrhoids Hereditary sensory and autonomic neuropathy Indigestion Insomnia Left leg cellulitis Lumbar radiculitis Malaise and fatigue Musculoskeletal chest pain Neck pain Obstipation Over weight Rib pain on left side Right knee DJD Right wrist pain Scalp abrasion Skin cancer Skin tear of upper extremity Sleep apnea Sore throat Sternal fracture Tic douloureux Tingling Trigeminal neuralgia Urinary retention Procedure/Surgical History Cardioversion (03/30/2023), Left Total Hip Arthroplasty (02/02/2016), bilateral cataract implants, Carpal tunnel release, Stephany fundoplication, skin cancer removed, stomach surgery, TURP - Transurethral resection of prostate. Medications Inpatient No active inpatient medications Home amLODIPine 5 mg Tab, 5 mg= 1 tab(s), Oral, Bedtime Eliquis 5 mg oral tablet, 5 mg= 1 tab(s), Oral, BID flecainide 50 mg Tab, 50 mg= 1 tab(s), Oral, q12hr Flomax 0.4 mg Cap, 0.4 mg= 1 cap(s), Oral, Daily, 3 refills, Still taking, not as prescribed: Patient states he takes it three times a (more content not included)... [facility] Comment on above: Result Comment: Elec tronically Signed By: Peggy Jerry PA-C\.br\Date and Time Signed: 01/07/24 14:00 EDT\.br\Electronically Co-Signed By: Shantell Andujar M.D.\.br\Date and Time Co-Signed: 01/07/24 18:01 EDT ED Patient Education Noteon 01-07-2024 ED Patient Education Note Orthopedics Musculoskeletal Pain Musculoskeletal pain refers to aches and pains in your bones, joints, muscles, and the tissues that surround them. This pain can occur in any part of the body. It can last for a short time (acute) or a long time (chronic). A physical exam, lab tests, and imaging studies may be done to find the cause of your musculoskeletal pain. Follow these instructions at home: Lifestyle ? Try to control or lower your stress levels. Stress increases muscle tension and can worsen musculoskeletal pain. It is important to recognize when you are anxious or stressed and learn ways to manage it. This may include: ? Meditation or yoga. ? Cognitive or behavioral therapy. ? Acupuncture or massage therapy. ? You may continue all activities unless the activities cause more pain. When the pain gets better, slowly resume your normal activities. Gradually increase the intensity and duration of your activities or exercise. Managing pain, stiffness, and swelling ? Treatment may include medicines for pain and inflammation that are taken by mouth or applied to the skin. Take noua-aga-bfdfozo and prescription medicines only as told by your health care provider. ? When your pain is severe, bed rest may be helpful. Lie or sit in any position that is comfortable, but get out of bed and walk around at least every couple of hours. ? If directed, apply heat to the affected area as often as told by your health care provider. Use the heat source that your health care provider recommends, such as a moist heat pack or a heating pad. ? Place a towel between your skin and the heat source. ? Leave the heat on for 20?30 minutes. ? Remove the heat if your skin turns bright red. This is especially important if you are unable to feel pain, heat, or cold. You may have a greater risk of getting burned. ? If directed, put ice on the painful area. To do this: ? Put ice in a plastic bag. ? Place a towel between your skin and the bag. ? Leave the ice on for 20 minutes, 2?3 times a day. ? Remove the ice if your skin turns bright red. This is very important. If you cannot feel pain, heat, or cold, you have a greater risk of damage to the area. General instructions ? Your health care provider may recommend that you see a physical therapist. This person can help you come up with a safe exercise program. ? If told by your health care provider, do physical therapy exercises to improve movement and strength in the affected area. ? Keep all follow-up visits. This is important. This includes any physical therapy visits. Contact a health care provider if: ? Your pain gets worse. ? Medicines do not help ease your pain. ? You cannot use the part of your body that hurts, such as your arm, leg, or neck. ? You have trouble sleeping. ? You have trouble doing your normal activities. Get help right away if: ? You have a new injury and your pain is worse or different. ? You feel numb or you have tingling in the painful area. Summary ? Musculoskeletal pain refers to aches and pains in your bones, joints, muscles, and the tissues that surround them. ? This pain can occur in any part of the body. ? Your health care provider may recommend that you see a physical therapist. This person can help you come up with a safe exercise program. Do any exercises as told by your physical therapist. ? Lower your stress level. Stress can worsen musculoskeletal pain. Ways to lower stress may include meditation, yoga, cognitive or behavioral therapy, acupuncture, and massage therapy. This information is not intended to replace advice given to you by your health care provider. Make sure you discuss any questions you have with your health care provider. Document Revised: 01/21/2021 Document Reviewed: 12/30/2020 Elsevier Patient Education ? 2022 [employer]. [facility] ED Patient Summaryon 024 ED Patient Summary (Inserted Image. Jennifer ble to display) [address] [address] Patient Discharge Instructions Person Information Name: JOSE ROCHA Age: 83 Years Arrival Date: 01/07/2024 13:05:34 Discharge Diagnosis: 1:Left foot pain Primary Care Physician: Jamison TELLEZ DO, FAAFP Provider Information Primary Provider: Shantell Andujar M.D. [facility] Nurse:None The exam and treatment you received in the Emergency Department were for an urgent problem and are not intended as complete care. It is important that you follow up with a doctor, nurse practitioner, or physician?s medical assistant ob gyn for ongoing care. If your symptoms become worse or you do not improve as expected and you are unable to reach your usual health care provider, you should return to the Emergency Department. We are available 24 hours a day. JOSE ROCHA has been given the following list of patient education materials, prescriptions and follow-up instructions: Follow-up Instructions: With: Address: When: Jamison TELLEZ DO, FAAFP, VARINDER, PED [address] [facility], [place] [address] In 3 days 01/10/2024 In the event that this physician does not participate in your insurance network, please consult with your insurance company to find a nearby participating provider. Patient Education Materials: Musculoskeletal Pain A MESSAGE TO ALL PATIENTS REGARDING OPIOIDS PRESCRIPTION OPIOIDS: WHAT YOU NEED TO KNOW Prescription opioids can be used to help relieve jebtcidy-tz-kndlth pain and are often prescribed following a surgery or injury, or for certain health conditions. These medications can be an important part of the treatment but also come with serious risks. It is important to work with your healthcare provider to make sure you are getting the safest, most effective care. WHAT ARE THE RISKS AND SIDE EFFECTS OF OPIOID USE? Prescription opioids carry serious risks of addiction and overdose, especially with prolonged use. An opioid overdose, often marked by slowed breathing, can cause sudden . The use of prescription opioids can have a number of side effects as well, even when taken as directed: ? Tolerance?meaning you might need to take more of the medication for the same pain relief ? Physical dependence?meaning you have symptoms of withdrawal when a medication is stopped ? Increased sensitivity to pain ? Constipation ? Nausea, vomiting, and dry mouth ? Sleepiness and dizziness ? Confusion ? Depression ? Low levels of testosterone that can result in lower sex drive, energy, and strength ? Itching and sweating RISKS ARE GREATER WITH: ? History of drug misuse, substance use disorder, or overdose ? Mental health conditions (such as depression or anxiety) ? Sleep apnea ? Older age (65 years and older) ? Avoid alcohol while taking prescription opioids. Also, unless specifically advised by your health care provider, medications to avoid include: ? Benzodiazepines (such as Xanax or Valium) ? Muscle relaxants (such as Soma or Flexeril) ? Hypnotics (such as Ambien or Lunesta) ? Other prescription opioids KNOW YOUR OPTIONS Talk to your health care provider about ways to manage your pain that don?t involve prescription opioids. Some of these options may actually work better and have fewer risks and side effects. Options may include: ? Pain relievers such as acetaminophen, ibuprofen, and naproxen ? Some medication that are also used for depression or seizures ? Physical therapy and exercise ? Cognitive behavioral therapy, a psychological, goal-directed approach, in which patients learn how to modify physical, behavioral, and emotional triggers of pain and stress. IF YOU ARE PRESCRIBED OPIOIDS FOR PAIN: ? Never take opioids in greater amounts or more often than prescribed. ? Follow up with your primary health care provider. o Work together to create a plan on how to manage your pain. o Talk about ways to help manage your pain that don?t involve prescription opioids. o Talk about any and all concerns and side effects. ? Help prevent misuse and abuse o Never sell or share prescription opioids. o Never use another person?s prescription opioids. ? Store prescription opioids in a secure place and out of reach of others (this may include visitors, children, friends, and family). ? Safely dispose of unused prescription opioids: Find your community drug take-back program or your pharmacy mail-back program, or flush them down the toilet, following guidance from the Food and Drug Administration (www.fda.gov/Drugs/Reso TiaraYou). ? Visit www.cdc.gov/drugoverdos e to learn about the risks of opioids abuse and overdose. ? If you believe you may be struggling with addiction, tell your health md do resident urgent care and ask for guidance or call [facility] National Helpline at 9-360-512-[place] [employer]. Plan Me Up Source: [place] Departme (more content not included)... [facility] XR Foot 3+ Views Lefton XR Foot 3+ Views Left Exam Date/Time: 01/07/2024 13:47 EDT Reason for Exam: Pain, Non Traumatic Report IMPRESSION: No acute osseous findings. EXAMINATION/TECHNIQUE: XR Foot 3+ Views Left HISTORY: Left foot pain. No known injury. COMPARISON: None RESULT: No evidence for acute fracture. No dislocation. Chronic appearing deformity involving the distal shaft of the fifth metatarsal. Accessory ossicle or chronic ununited fracture at the base of the fifth metatarsal. Advanced degenerative changes of the first MTP joint with other scattered mild to moderate degenerative changes throughout the foot. Mild soft tissue edema. No other significant abnormality. Ordering Provider: Peggy Jerry FINAL REPORT Dictated: 01/07/2024 2:15 pm Shan Lewis MD Signed (Electronic Signature): 01/07/2024 2:15 pm Signed by: Shan Lewis MD Transcribed by: ALEJANDRINA Technologist: CASIMIRO Technical Comments Radiation Dose: Ka,r in mGy = na DAP = na [facility] Ambulatory Visit Summaryon 0 12-19-2023 Ambulatory Visit Summary JOSE ROCHA :1940 Visit Date:12/19/2023 Ambulatory Visit Instructions Your Diagnosis Cervicalgia Chronic constipation Hypertension Tortuous aorta Peyronie's disease BMI 27.0-27.9,adult Dyshidrotic eczema Familial hypercholesterolemia Seborrheic keratosis PAF (paroxysmal atrial fibrillation) These Are Your Goals Hypertension: Maintain blood pressure in therapeutic range - Progressing Interventions: Maintain an active lifestyle - Progressing Monitor Sodium intake - Progressing Monitor blood pressure daily - Progressing Review education booklet - Done Take medications as prescribed - Progressing PAF: Avoid complications Interventions: Monitor for symptoms of complication - Progressing Read education material - Done Take Medications as Prescribed - Progressing Neuropathy: Remain free from injury Interventions: Continue podiatry follow ups as scheduled - Progressing Examine lower extremities - Progressing Take medications as prescribed - Progressing Your Care Team Attending Physician - Jamison TELLEZ DO, FAAFP Primary Care Physician - Jamison TELLEZ DO, FAAFP This Is Your Medications List Contact prescribing physician if questions or concerns amlodipine (amLODIPine 5 mg Tab) apixaban (Eliquis 5 mg oral tablet) atorvastatin (Lipitor 20 mg Tab) cholecalciferol (Vitamin D3 50 mcg (2000 intl units) oral tablet, chewable) flecainide (flecainide 50 mg Tab) gabapentin (gabapentin 300 mg Cap) losartan (losartan 50 mg Tab) multivitamin with minerals (One A Day Men's Complete) predniSONE (predniSONE 10 mg Tab) psyllium (Metamucil) tamsulosin (Flomax 0.4 mg Cap) triamcinolone topical (triamcinolone Top 0.1% Crm 15 gram) zolpidem (zolpidem 12.5 mg oral ER Tab) Procedures Performed Cardioversion (03/30/2023), Left Total Hip Arthroplasty (02/02/2016), bilateral cataract implants, Carpal tunnel release, Stephany fundoplication, skin cancer removed, stomach surgery, TURP - Transurethral resection of prostate. Discharge Vitals Temperature (Oral) 36.8 ?C Heart Rate (Peripheral) 75 Respiratory Rate 18 Blood Pressure 128/62 Height 178 cm Height 70 in Weight 87.1 kg Weight 191.62 lb BMI 27.49 What to do next Scheduled Follow-Up Appointments Monday 2:30 PM EDT Where: [facility] Family Medicine Office/Clini c Noteon 12-19-2023 Family Medicine Office/Clinic Note Chief Complaint Patient here for 3 month f/u on htn, chol, bph, paf, insomnia History of Present Illness Here for follow up Have you had any ER visits or any hospitalizations since last visit? yes Are you compliant with your medications and no difficulty affording your medications? yes Do you have side effects from the medication? no Are you compliant with your diet? yes Do you exercise? yes Do you have any of the following symptoms? Chest pain? no Palpitations? no MATTHEWS/SOB? no Orthopnea? no PND? no Edema? no Have you had any recent cardiopulmonary testing? no Tripped over rollator 3 mo ago, no LOC nor hit head. I have a matching lesion on my right leg from just the other night, I just going too fast and tripped on things, no associated rapid or slow heart rate nor head trauma I just get her myself. When I hit my left leg and had to go to the emergency room I tripped over my 's rollator, that was 3 months ago with good healing now I am getting some bruising or I hate myself and skin tears if I get myself too hard otherwise, doing very well. Review of Systems PHQ Score Initial Depression Screen Score: 0 SCORE ROS - Provider Constitutional: no fever, no chills, no sweats, no weakness. Skin: no Jaundice, yes rash, yes lesions, no petechiae. ENMT: no ear pain, no sore throat, no congestion, no hoarseness. Respiratory: no shortness of breath, no cough, no orthopnea, no wheezing. Cardiovascular: no chest pain, no palpitations, no edema. Gastrointestinal: no nausea, no vomiting, no diarrhea, no GI bleeding.no constipationnoheartburn Genitourinary: no dysuria, no hematuria, no discharge, no pain.nofreq/urgency Musculoskeletal: no back pain, no trauma.nojoint pain Neurologic: no headache, no dizziness, no numbness, no weakness. Psychiatric: no sleeping problems, no irritability, no mood swings/depression. Heme/Lymph: no bleeding tendency, no bruising tendency, no petechiae, no swollen lymph nodes no Allergy/Imunology no seasonal allergies, no food allergies, no recurrent infections, no impaired immunity. Additional ROS info: Except as noted in the above Review of Systems and in the History of Present Illness all other systems have been reviewed and are negative or noncontributory. Physical Exam Vitals & Measurements T: 36.8 ?C(Oral) HR: 75(Peripheral) RR: 18 BP: 128/62 SpO2: 95% HT: 70 in HT: 178 cm WT: 87.1 kg WT: 191.62 lb BMI: 27.49 HEENT: WNL Neck: Normal, no masses nor bruits HRRR w/o M, no S3, S4 LCTA Abd: benign NM: no focal extremities Extremities: No C/C/E: Some venous insufficiency changes on legs. Psych: Oriented and appropriate for age. Skin:normal except for skin tear of right forearm triangular shape approximately 1 cm and senile ecchymosis. Seborrheic keratosis left temporal area approximately 1 inch in right scientology area approximately 1 cm and another smaller lesion on the right parietal occipital area approximately 1/2 cm. Well-healed diagonal laceration of approximately 6 inches, 2 lacerations adjacent to each other left lateral leg with resolving ecchymosis. Similar to 3 inch lesions on the right inferior lateral leg they are healing well without signs or symptoms of infection still an eschar stage. Assessment/Plan 1. Cervicalgia (M54.2: Cervicalgia) Neck exercises and Tylenol [id number] as directed 2. Chronic constipation (K59.09: Other constipation) Doing well with high-fiber diet 3. Hypertension (I10: Essential (primary) hypertension) Diet and exercise, he is in good shape, continue amlodipine 5 mg a day along with losartan 50 mg p.o. daily 4. 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 Peyronie's disease (N48.6: Induration penis plastica) Neurology following patient without complaints: 6. BMI 27.0-27.9,adult (Z68.27: Body mass index [BMI] 27.0-27.9, adult) The standard range for ages 18 and older is >=18.5 and < 25 kg/m2. Your BMI today was above this range, this falls in the overweight to obese category and there are medical benefits to weight loss. We can offer counselling, referral, and/or medical support in addressing this problem. Your BMI and weight management will be followed at subsequent visits. 7. Dyshidrotic eczema (L30.1: Dyshidrosis [pompholyx]) Coconut oil as needed her favorite emollient cream 8. Familial hypercholesterolemia (E78.01: Familial hypercholesterolemia) Lipitor 20 mg p.o. daily, will recommend co-Q10 9. Seborrheic keratosis (L82.1: Other seborrheic keratosis) Dermatology follows, I reassured as did dermatology per patient 10. PAF (paroxysmal atrial fibrillation) (I48.0: Paroxysmal atrial fibrillation) Excellent control with flecainide 50 mg p.o. every 12 hours and Eliquis 5 mg p.o. daily along with amlodipine and losartan Orders: triamcinolone topical, 1 riki, Topical, BID, 45 gm, Refill(s) 1, [employer], 178, cm, 11/20/23 13:33:00 EST, Height/Length (more content not included)... [facility] Comment on above: Result Comment: Elec tronically Signed By: GEOFF PINTO FAAFP, Jamison Campos\.diego\Date and Time Signed: 12/19/23 14:41 EDT Patient Educationon 12-19-19 Patient Education Orthopedics Neck Exercises Ask your health care provider which exercises are safe for you. Do exercises exactly as told by your health care provider and adjust them as directed. It is normal to feel mild stretching, pulling, tightness, or discomfort as you do these exercises. Stop right away if you feel sudden pain or your pain gets worse. Do not begin these exercises until told by your health care provider. Neck exercises can be important for many reasons. They can improve strength and maintain flexibility in your neck, which will help your upper back and prevent neck pain. Stretching exercises Rotation neck stretching 1. Sit in a chair or stand up. 2. Place your feet flat on the floor, shoulder-width apart. 3. Slowly turn your head (rotate) to the right until a slight stretch is felt. Turn it all the way to the right so you can look over your right shoulder. Do not tilt or tip your head. 4. Hold this position for 10?30 seconds. 5. Slowly turn your head (rotate) to the left until a slight stretch is felt. Turn it all the way to the left so you can look over your left shoulder. Do not tilt or tip your head. 6. Hold this position for 10?30 seconds. Repeat times. Complete this exercise times a day. Neck retraction 1. Sit in a sturdy chair or stand up. 2. Look straight ahead. Do not bend your neck. 3. Use your fingers to push your chin backward (retraction). Do not bend your neck for this movement. Continue to face straight ahead. If you are doing the exercise properly, you will feel a slight sensation in your throat and a stretch at the back of your neck. 4. Hold the stretch for 1?2 seconds. Repeat times. Complete this exercise times a day. Strengthening exercises Neck press 1. Lie on your back on a firm bed or on the floor with a pillow under your head. 2. Use your neck muscles to push your head down on the pillow and straighten your spine. 3. Hold the position as well as you can. Keep your head facing up (in a neutral position) and your chin tucked. 4. Slowly count to 5 while holding this position. Repeat times. Complete this exercise times a day. Isometrics These are exercises in which you strengthen the muscles in your neck while keeping your neck still (isometrics). 1. Sit in a supportive chair and place your hand on your forehead. 2. Keep your head and face facing straight ahead. Do not flex or extend your neck while doing isometrics. 3. Push forward with your head and neck while pushing back with your hand. Hold for 10 seconds. 4. Do the sequence again, this time putting your hand against the back of your head. Use your head and neck to push backward against the hand pressure. 5. Finally, do the same exercise on either side of your head, pushing sideways against the pressure of your hand. Repeat times. Complete this exercise times a day. Prone head lifts 1. Lie face-down (prone position), resting on your elbows so that your chest and upper back are raised. 2. Start with your head facing downward, near your chest. Position your chin either on or near your chest. 3. Slowly lift your head upward. Lift until you are looking straight ahead. Then continue lifting your head as far back as you can comfortably stretch. 4. Hold your head up for 5 seconds. Then slowly lower it to your starting position. Repeat times. Complete this exercise times a day. Supine head lifts 1. Lie on your back (supine position), bending your knees to point to the ceiling and keeping your feet flat on the floor. 2. Lift your head slowly off the floor, raising your chin toward your chest. 3. Hold for 5 seconds. Repeat times. Complete this exercise times a day. Scapular retraction 1. Stand with your arms at your sides. Look straight ahead. 2. Slowly pull both shoulders (scapulae) backward and downward (retraction) until you feel a stretch between your shoulder blades in your upper back. 3. Hold for 10?30 seconds. 4. Relax and repeat. Repeat times. Complete this exercise times a day. Contact a health care provider if: ? Your neck pain or discomfort gets worse when you do an exercise. ? Your neck pain or discomfort does not improve within 2 hours after you exercise. If you have any of these problems, stop exercising right away. Do not do the exercises again unless your health care provider says that you can. Get help right away if: ? You develop sudden, severe neck pain. If this happens, stop exercising right away. Do not do the exercises again unless your health care provider says that you can. This information (more content not included)... [facility] 12-04-19 [facility] Case Information Case Priority: None Programs: -- Referral Source: [employer]er Referral Reason: Care coordination Case Type: Chronic Care Management Risk Score: -- Case Status: Active (June 23, 2022) Date Assigned: June 16, 2022 Assigned By: Jossy Francis RN Date Enrolled: June 23, 2022 Assigned Primary Personnel: Jossy Francis RN Assigned Secondary Personnel: -- Case Physician: GEOFF PINTO FAAFP, Jamison Campos Problems Ongoing Axonal sensorimotor neuropathy Basal cell carcinoma BPH associated with nocturia BPH without urinary obstruction Cervicalgia Chronic constipation Chronic insomnia Cough DDD (degenerative disc disease), cervical Dyshidrotic eczema Edema of both lower legs due to peripheral venous insufficiency Enthesopathy of right shoulder Familial hypercholesterolemia Gouty arthritis of right hand Hypertension Idiopathic small fiber sensory neuropathy Laceration of leg Left lumbar radiculitis Leg abrasion 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 Non-smoker Osteoarthritis of both hands PAF (paroxysmal atrial fibrillation) Peyronie's disease Right shoulder pain Screening PSA (prostate specific antigen) Seasonal allergies Seborrheic keratosis Senile ecchymosis Syncope Tortuous aorta Wheezing Historical Atrial fibrillation BMI 25.0-25.9,adult BPH Bruise Cervical pain Cervical stenosis of spine Constipation Ecchymoses, spontaneous Fall as cause of accidental injury at home as place of occurrence Fracture in accidental fall Head injury without concussion or intracranial hemorrhage Hemorrhoids Hereditary sensory and autonomic neuropathy Indigestion Insomnia Left leg cellulitis Lumbar radiculitis Malaise and fatigue Musculoskeletal chest pain Neck pain Obstipation Over weight Rib pain on left side Right knee DJD Right wrist pain Scalp abrasion Skin cancer Skin tear of upper extremity Sleep apnea Sore throat Sternal fracture Tic douloureux Tingling Trigeminal neuralgia Urinary retention Procedure/Surgical History Cardioversion (03/30/2023), Left Total Hip Arthroplasty (02/02/2016), bilateral cataract implants, Carpal tunnel release, Stephany fundoplication, skin cancer removed, stomach surgery, TURP - Transurethral resection of prostate. Home Medications amLODIPine 5 mg Tab, 5 mg= 1 tab(s), Oral, Bedtime doxycycline hyclate 100 mg Cap, 100 mg= 1 cap(s), Oral, BID Eliquis 5 mg oral tablet, 5 mg= 1 tab(s), Oral, BID flecainide 50 mg Tab, 50 mg= 1 tab(s), Oral, q12hr Flomax 0.4 mg Cap, 0.4 mg= 1 cap(s), Oral, Daily, 3 refills, Still taking, not as prescribed: Patient states he takes it three times a week gabapentin 300 mg Cap, 300 mg= 1 cap(s), Oral, Daily Lipitor 20 mg Tab, 20 mg= 1 tab(s), Oral, Once a day (at bedtime), 3 refills losartan 50 mg Tab, 50 mg= 1 tab(s), Oral, Daily Metamucil, Oral One A Day Men's Complete, Oral, Daily predniSONE 10 mg Tab, 10 mg= 1 tab(s), Oral, As Directed triamcinolone topical 0.05% ointment, 1 riki, Topical, BID, 1 refills Vitamin D3 50 mcg (2000 intl units) oral tablet, chewable, 50 mcg= 1 tab(s), Oral, Daily zolpidem 12.5 mg oral ER Tab, 12.5 mg= 1 tab(s), Oral, Once a day (at bedtime), PRN, 5 refills Allergies No Known Allergies Social History Alcohol - Denies Alcohol Use, 07/12/2012 Substance Abuse - Denies Substance Abuse, 07/12/2012 Tobacco - Denies Tobacco Use, 07/12/2012 Never (less than 100 in lifetime) Tobacco Use:. Never Smokeless Tobacco Use:., 11/20/2023 Family History Acute myocardial infarction: Father. Alzheimer's disease: Sister. Kidney disease: Mother. Screenings and Assessments 07/11/22 13:04:00 Result Name Value Comment Phone Call Monitoring Consent Agreed to continue call Phone Verification Patient Information Full name, street address and date of verified Program Enrollment Provides verbal consent for enrollment CCM Program Enrollment Verbally agreed to receive [facility] services [facility] Written Consent Written consent obtained CCM Verbal Consent By Self 06/23/22 11:00:00 Result Name Value Comment HIPPA Verified Type of Contact Telephone Information Given by Self CM Preferred Spoken Language Georgian Preferred Written Language Georgian Preferred Communication Mode Verbal Ability to Read/Write Able to read, Able to write Appointment Reminders Phone Preferred Way to Send PHI Standard mail Able to Read Georgian Able to read Georgian Learning Style Pref Patient Printed materials Teaching Method Printed materials Barriers to Learning None evident Best Time to Visit or C (more content not included)... [facility] Consultation Noteon 12-02-19 Consultation Note [id number] [facility] Ambulatory Visit Summaryon 0 11-20-2023 Ambulatory Visit Summary JOSE ROCHA :1940 Visit Date:11/20/2023 Ambulatory Visit Instructions Your Diagnosis Cough Wheezing Adult BMI 27.0-27.9 kg/sq m Overweight These Are Your Goals Hypertension: Maintain blood pressure in therapeutic range - Progressing Interventions: Maintain an active lifestyle - Progressing Monitor Sodium intake - Progressing Monitor blood pressure daily - Progressing Review education booklet - Done Take medications as prescribed - Progressing PAF: Avoid complications Interventions: Monitor for symptoms of complication - Progressing Read education material - Done Take Medications as Prescribed - Progressing Neuropathy: Remain free from injury Interventions: Continue podiatry follow ups as scheduled - Progressing Examine lower extremities - Progressing Take medications as prescribed - Progressing Your Care Team Attending Physician - Bert HOFFMANN, Subha Jiang Primary Care Physician - Jamison TELLEZ DO, FAAFP This Is Your Medications List Contact prescribing physician if questions or concerns amlodipine (amLODIPine 5 mg Tab) apixaban (Eliquis 5 mg oral tablet) atorvastatin (Lipitor 20 mg Tab) benzonatate (Tessalon 100 mg Cap) cholecalciferol (Vitamin D3 50 mcg (2000 intl units) oral tablet, chewable) flecainide (flecainide 50 mg Tab) gabapentin (gabapentin 300 mg Cap) losartan (losartan 50 mg Tab) multivitamin with minerals (One A Day Men's Complete) psyllium (Metamucil) tamsulosin (Flomax 0.4 mg Cap) zolpidem (zolpidem 12.5 mg oral ER Tab) Procedures Performed Cardioversion (03/30/2023), Left Total Hip Arthroplasty (02/02/2016), bilateral cataract implants, Carpal tunnel release, Stephany fundoplication, skin cancer removed, stomach surgery, TURP - Transurethral resection of prostate. Discharge Vitals Temperature (Temporal Artery) 36.8 ?C Heart Rate (Peripheral) 70 Respiratory Rate 18 Blood Pressure 120/68 Height 178 cm Height 70 in Weight 87.0 kg Weight 191.4 lb BMI 27.46 What to do next Scheduled Follow-Up Appointments Monday 1:20 PM EDT With: Jamison TELLEZ DO, FAAFP Where: [facility] [address], [place] [address]- \.br\ You Need to Schedule the Following Appointments\.br \ Follow Up with Bert HOFFMANN, Subha Jiang When: Only if needed\.br\ Where:\.br\ [address]\ [place] [address]-\.br\ \.br\ Medications\.br\ What How Much When Instructions\.br \ Unchanged amlodipine (amLODIPine 5 mg Tab) 1 Tablets By Mouth At bedtime Contact prescribing physician if questions or concerns \.br\ Unchanged apixaban (Eliquis 5 mg oral tablet) 1 Tablets By Mouth 2 times a day Contact prescribing physician if questions or concerns \.br\ Unchanged atorvastatin (Lipitor 20 mg Tab) 1 Tablets By Mouth Once a day (at bedtime) Contact prescribing physician if questions or concerns \.br\ Unchanged benzonatate (Tessalon 100 mg Cap) 1 Capsules By Mouth 3 times a day Duration: 7 Days Contact prescribing physician if questions or concerns \.br\ Unchanged cholecalciferol (Vitamin D3 50 mcg (2000 intl units) oral tablet, chewable) 1 Tablets By Mouth Every day Contact prescribing physician if questions or concerns \.br\ Unchanged flecainide (flecainide 50 mg Tab) 1 Tablets By Mouth Every 12 hours Contact prescribing physician if questions or concerns \.br\ Unchanged gabapentin (gabapentin 300 mg Cap) 1 Capsules By Mouth Every day Contact prescribing physician if questions or concerns \.br\ Unchanged losartan (losartan 50 mg Tab) 1 Tablets By Mouth Every day Contact prescribing physician if questions or concerns \.br\ Unchanged multivitamin with minerals (One A Day Men's Complete) By Mouth Every day Contact prescribing physician if questions or concerns \.br\ Unchanged psyllium (Metamucil) By Mouth Contact prescribing physician if questions or concerns \.br\ Unchanged tamsulosin (Flomax 0.4 mg Cap) 1 Capsules By Mouth Every day Contact prescribing physician if questions or concerns \.br\ Unchanged zolpidem (zolpidem 12.5 mg oral ER Tab) 1 Tablets By Mouth Once a day (at bedtime) as needed for for sleep 30 day supply Contact prescribing physician if questions or concerns \.br\ Allergies\.br\ No Known Allergies\.br\ Problems\.br\ Ongoing - Any problem that you are currently receiving treatment for.\.br\ Axonal sensorimotor neuropathy\.br\ Basal cell carcinoma\.br\ BPH associated with nocturia\.br\ BPH without urinary obstruction\.br\ Cervicalgia\.br\ Chronic constipation\.br \ Chronic insomnia\.br\ Cough\.br\ DDD (degenerative disc disease), cervical\.br\ Dyshidrotic eczema\.br\ Edema of both lower legs due to peripheral venous insufficiency\.b r\ Enthesopathy of right shoulder\.br\ Familial hypercholesterol emia\.br\ Gouty arthritis of right hand\.br\ Hypertension\.br \ Idiopathic small fiber sensory neuropathy\.br\ Laceration of leg\.br\ Left lumbar radiculitis\.br\ Leg abrasion\.br\ 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\.br\ Neoplasm of uncertain behavior\.br\ Non-smoker\.br\ Osteoarthritis of both hands\.br\ PAF (paroxysmal atrial fibrillation)\.b r\ Peyronie's disease\.br\ Right shoulder pain\.br\ Screening PSA (prostate specific antigen)\.br\ Seasonal allergies\.br\ Seborrheic keratosis\.br\ Senile ecchymosis\.br\ Syncope\.br\ Tortuous aorta\.br\ Wheezing\.br\ Historical - Any problem that you are no longer receiving treatment for.\.br\ Atrial fibrillation\.br \ BMI 25.0-25.9,adult\ .br\ BPH\.br\ Bruise\.br\ Cervical pain\.br\ Cervical stenosis of spine\.br\ Constipation\.br \ Ecchymoses, spontaneous\.br\ Fall as cause of accidental injury at home as place of occurrence\.br\ Fracture in accidental fall\.br\ Head injury without concussion or intracranial hemorrhage\.br\ Hemorrhoids\.br\ Hereditary sensory and autonomic neuropathy\.br\ Indigestion\.br\ Insomnia\.br\ Left leg cellulitis\.br\ Lumbar radiculitis\.br\ Malaise and fatigue\.br\ Musculoskeletal chest pain\.br\ Neck pain\.br\ Obstipation\.br\ Over weight\.br\ Rib pain on left side\.br\ Right knee DJD\.br\ Right wrist pain\.br\ Scalp abrasion\.br\ Skin cancer\.br\ Skin tear of upper extremity\.br\ Sleep apnea\.br\ Sore throat\.br\ Sternal fracture\.br\ Tic douloureux\.br\ Tingling\.br\ Trigeminal neuralgia\.br\ Urinary retention\.br\ Patient Survey\.br\ You may receive a survey via text or e-mail asking about your office visit. Please share your experience with us by completing your survey. We appreciate your feedback and thank you for choosing us for your care.\.br\ Education Materials\.br\ Cough, Adult\.br\ A cough helps to clear your throat and lungs. A cough may be a sign of an illness or another medical condition.\.br\ An acute cough may only last 2?3 weeks, while a chronic cough may last 8 or more weeks.\.br\ Many things can cause a cough. They include:\.br\ ? \.br\ Germs (viruses or bacteria) that attack the airway.\.br\ ? \.br\ Breathing in things that bother (irritate) your lungs.\.br\ ? \.br\ Allergies.\.br\ ? \.br\ Asthma.\.br\ ? \.br\ Mucus that runs down the back of your throat (postnasal drip).\.br\ ? \.br\ Smoking.\.br\ ? \.br\ Acid backing up from the stomach into the tube that moves food from the mouth to the stomach (gastroesophagea l reflux).\.br\ ? \.br\ Some medicines.\.br\ ? \.br\ Lung problems.\.br\ ? \.br\ Other medical conditions, such as heart failure or a blood clot in the lung (pulmonary embolism).\.br\ Follow these instructions at home:\.br\ Medicines\.br\ ? \.br\ Take axzc-rmt-dxdjtso and prescription medicines only as told by your doctor.\.br\ ? \.br\ Talk with your doctor before you take medicines that stop a cough (cough suppressants).\. br\ Lifestyle\.br\ \.br\ ? \.br\ Do not smoke, and try not to be around smoke. Do not use any products that contain nicotine or tobacco, such as cigarettes, e-cigarettes, and chewing tobacco. If you need help quitting, ask your doctor.\.br\ ? \.br\ Drink enough fluid to keep your pee (urine) pale yellow.\.br\ ? \.br\ Avoid caffeine.\.br\ ? \.br\ Do not drink alcohol if your doctor tells you not to drink.\.br\ General instructions\.br \ \.br\ ? \.br\ Watch for any changes in your cough. Tell your doctor about them.\.br\ ? \.br\ Always cover your mouth when you cough.\.br\ ? \.br\ Stay away from things that make you cough, such as perfume, candles, campfire smoke, or cleaning products.\.br\ ? \.br\ If the air is dry, use a cool mist vaporizer or humidifier in your home.\.br\ ? \.br\ If your cough is worse at night, try using extra pillows to raise your head up higher while you sleep.\.br\ ? \.br\ Rest as needed.\.br\ ? \.br\ Keep all follow-up visits as told by your doctor. This is important.\.br\ Contact a doctor if:\.br\ ? \.br\ You have new symptoms.\.br\ ? \.br\ You cough up pus.\.br\ ? \.br\ Your cough does not get better after 2?3 weeks, or your cough gets worse.\.br\ ? \.br\ Cough medicine does not help your cough and you are not sleeping well.\.br\ ? \.br\ You have pain that gets worse or pain that is not helped with medicine.\.br\ ? \.br\ You have a fever.\.br\ ? \.br\ You are losing weight and you do not know why.\.br\ ? \.br\ You have night sweats.\.br\ Get help right away if:\.br\ ? \.br\ You cough up blood.\.br\ ? \.br\ You have trouble breathing.\.br\ [facility] Family Medicine Office/Clini c Noteon 11-20-2023 Family Medicine Office/Clinic Note Chief Complaint cough HPI Staff Reason for visit: Cough and patient would like his bilateral leg abrasions looked at Patient states he has a lot of wheezing and has been going on for about a week. Patient states he got tested for COVID and it was negative. Patient states he fell about three weeks ago and his legs are gashed up. Denies fever. Patient seen at [facility] 11/16 History of Present Illness Jose is a 82 yo male presenting today for cough PCP is Dr. Tellez Pt was also previously in the ED after he tripped over his 's walker and fell. He sustained a left leg open laceration and multiple bilateral scrapes. today the left lower leg is red, irritated, painful and warm to the touch around the laceration that is scabbed over. URI sx: Pt reports symptoms started 1 week ago Pt reports they are experiencing: cough and wheezing Pt denies CP, SOB, chest tightness, fever, chills, body aches, congestion, runny nose, sinus pressure, sore throat, ear pain/pressure, changes in taste/smell/appetite, n/v/d, abd pain, MURPHY, fatigue, urinary changes, or dizziness at this time. Pt went to on 11/13/23 and 11/16/23 for similar sx and was prescribed tessalon perles for his cough and dx with viral URI. Pt denies any known sick contacts, COVID+ case or recent travel at this time smoker: no Hx of deviated septum/sinus surgeries: no Pt is fully vaccinated against COVID Review of Systems PHQ Score Initial Depression Screen Score: 0 SCORE Physical Exam Vitals & Measurements T: 36.8 ?C(Temporal Artery) HR: 70(Peripheral) RR: 18 BP: 120/68 SpO2: 98% HT: 70 in HT: 178 cm WT: 87.0 kg WT: 191.4 lb BMI: 27.46 General: Well developed, well nourished, in no acute distress Eyes: Bilateral PERRLA, conjunctivae and sclerae wnl, EOMs intact, lids without stye, chalazion, ect/extropion, ptosis, xanthelasma, blepharitis. No discharge to inner canthi.Negative for corneal abrasion or foreign bodies. Ears: grossly normal hearing Nose: No deformity, discharge, inflammation, or lesions. No congestion, no erythema; pink & moist turbinates; clear rhinorrhea. Mouth: mucous membranes pink, moist and intact. [place] posterior oropharynx, no palatal inflammation, uvula midline, no cobble-stoning, no enlarged tonsils, no tonsillar exudate, no ulcers, no active post nasal drip. tongue midline and wnl. Good dentition. Neck: Neck supple. No lymphadenopathy. Trachea midline. No thyroid, masses, tenderness, or enlargement noted. No bruit. Lungs: Normal respiratory effort and clear to auscultation Cardio: Regular rate and rhythm, normal S1 and S2, no murmur, no rub Abdomen: not assessed Musculoskeletal: No deformity or scoliosis noted. No vertebral tenderness. Normal range of motion. No vertebral point tenderness. Joints normal. No erythema, edema, effusion, crepitus, or ecchymosis. Straight leg raise negative Extremity: No clubbing, cyanosis, edema, or deformity. Normal ROM with upper and lower extremities, bilaterally. Neurologic: Cranial nerves II-XII grossly intact. motor strength equal & normal bilaterally, sensation equal & normal bilaterally. Gait normal. Skin: LLE has large scabbed over laceration with 3in perimeter of erythema, calor and mild edema noted. Pt also reports tenderness to palpation, likely cellulitis. Mental Status: Alert and oriented x3. Normal mood and affect Assessment/Plan 1. Cough (R05.9: Cough, unspecified) Use tessalon perles 200mg TID x 10 days (fine to use with flecainide) D/t duration of sx, suspect viral URI has now become bacterial and will start pt on doxycycline 100mg BID x 10 days. The first 3-5 days of symptoms are typically the worst (fever, body aches, etc), with cold symptoms lasting 7-14 days. Encouraged fluids to keep secretions thin. Rest. Discussed red flags/when to seek emergency care - pt verbalized understanding Rest and push fluids, Vit C, D and zinc x 2 weeks. Pt verbalized understanding f/u PRN Ordered: benzonatate, 200 mg = 2 cap(s), Oral, TID, X 10 day(s), # 60 cap(s), Refills(s) 0, Pharmacy: [id number], 178, cm, 11/20/23 13:33:00 EST, Height/Length Dosing, 87, kg, 11/20/23 13:33:00 EST, Weight Dosing doxycycline, 100 mg = 1 cap(s), Oral, BID, # 20 cap(s), Refills(s) 0, Pharmacy: [id number], 178, cm, 11/20/23 13:33:00 EST, Height/Length Dosing, 87, kg, 11/20/23 13:33:00 EST, Weight Dosing 2. Wheezing (R06.2: Wheezing) bilateral Upper and lower lobe late expiratory wheezes use prednisone taper as prescribed Discussed red flags/when to report to ED - pt verbalized understanding f/u PRN Ordered: predniSONE, 10 mg = 1 tab(s), Oral, As Directed, Take 4 tabs for 3 days, 3 tabs for 3 days, 2 tabs for 3 days, 1 tab for 3 days., # 30 tab(s), Refills(s) 0, Pharmacy: [id number], 178, cm, 11/20/23 13:33:00 EST, Height/Length Dosing, 87, kg, ... 3. Cellulitis (L03.90: Cellulitis, unspecified) Suspect cellulitis based on presentation and linda (more content not included)... [facility] Comment on above: Result Comment: Elec tronically Signed By: Bert HOFFMANN, Subha Jiang\.br\Date and Time Signed: 11/20/23 14:00 EST Patient Educationon 11-20-19 Patient Education ENT Cough, Adult A cough helps to clear your throat and lungs. A cough may be a sign of an illness or another medical condition. An acute cough may only last 2?3 weeks, while a chronic cough may last 8 or more weeks. Many things can cause a cough. They include: ? Germs (viruses or bacteria) that attack the airway. ? Breathing in things that bother (irritate) your lungs. ? Allergies. ? Asthma. ? Mucus that runs down the back of your throat (postnasal drip). ? Smoking. ? Acid backing up from the stomach into the tube that moves food from the mouth to the stomach (gastroesophageal reflux). ? Some medicines. ? Lung problems. ? Other medical conditions, such as heart failure or a blood clot in the lung (pulmonary embolism). Follow these instructions at home: Medicines ? Take hbrk-vpq-gyldzmk and prescription medicines only as told by your doctor. ? Talk with your doctor before you take medicines that stop a cough (cough suppressants). Lifestyle ? Do not smoke, and try not to be around smoke. Do not use any products that contain nicotine or tobacco, such as cigarettes, e-cigarettes, and chewing tobacco. If you need help quitting, ask your doctor. ? Drink enough fluid to keep your pee (urine) pale yellow. ? Avoid caffeine. ? Do not drink alcohol if your doctor tells you not to drink. General instructions ? Watch for any changes in your cough. Tell your doctor about them. ? Always cover your mouth when you cough. ? Stay away from things that make you cough, such as perfume, candles, campfire smoke, or cleaning products. ? If the air is dry, use a cool mist vaporizer or humidifier in your home. ? If your cough is worse at night, try using extra pillows to raise your head up higher while you sleep. ? Rest as needed. ? Keep all follow-up visits as told by your doctor. This is important. Contact a doctor if: ? You have new symptoms. ? You cough up pus. ? Your cough does not get better after 2?3 weeks, or your cough gets worse. ? Cough medicine does not help your cough and you are not sleeping well. ? You have pain that gets worse or pain that is not helped with medicine. ? You have a fever. ? You are losing weight and you do not know why. ? You have night sweats. Get help right away if: ? You cough up blood. ? You have trouble breathing. ? Your heartbeat is very fast. These symptoms may be an emergency. Do not wait to see if the symptoms will go away. Get medical help right away. Call your local emergency services (911 in the [place] Do not drive yourself to the hospital. Summary ? A cough helps to clear your throat and lungs. Many things can cause a cough. ? Take qeqr-ced-pwrccdx and prescription medicines only as told by your doctor. ? Always cover your mouth when you cough. ? Contact a doctor if you have new symptoms or you have a cough that does not get better or gets worse. This information is not intended to replace advice given to you by your health care provider. Make sure you discuss any questions you have with your health care provider. Document Revised: 11/06/2020 Document Reviewed: 10/07/2019 [employer] Patient Education ? 2022 [employer] Cough, Adult Coughing is a reflex that clears your throat and your airways (respiratory system). Coughing helps to heal and protect your lungs. It is normal to cough occasionally, but a cough that happens with other symptoms or lasts a long time may be a sign of a condition that needs treatment. An acute cough may only last 2?3 weeks, while a chronic cough may last 8 or more weeks. Coughing is commonly caused by: ? Infection of the respiratory systemby viruses or bacteria. ? Breathing in substances that irritate your lungs. ? Allergies. ? Asthma. ? Mucus that runs down the back of your throat (postnasal drip). ? Smoking. ? Acid backing up from the stomach into the esophagus (gastroesophageal reflux). ? Certain medicines. ? Chronic lung problems. ? Other medical conditions such as heart failure or a blood clot in the lung (pulmonary embolism). Follow these instructions at home: Medicines ? Take lhsa-dtz-sddmfvy and prescription medicines only as told by your health care provider. ? Talk with your health care provider before you take a cough suppressant medicine. Lifestyle ? Avoid cigarette smoke. Do not use any products that contain nicotine or tobacco, such as cigarettes, e-cigarettes, and chewing tobacco. If you need help quitting, ask your health care provider. ? Drink enough fluid to keep your urine pale yellow. ? Avoid caffeine. ? Do not drink alcohol if your health care provider tells you not to drink. General instructions ? Pay close attention to changes in your cough. Tell your health care provider about them. ? Always cover your mouth when you cough. ? Avoid thin (more content not included)... [facility] Family Medicine Office/Clini c Noteon 11-16-2023 Family Medicine Office/Clinic Note Chief Complaint cough HPI Staff 82 year old male presents with a cough, stomach pain from coughing was seen here at on 11/14 but now has a cough that is causing him pain was tested for COVID and it was negative History of Present Illness Reviewed and agree with above documented HPI by pediatrician/medical doctor. Patient is a 82-year-old male who presents with his to [facility] for continued complaint of cough which is now progressed to stomach pain with coughing. He was seen in the [facility] on November 13 for COVID-like symptoms. At that time he was tested for COVID and found to be negative. He was given Tessalon pearls for cough. He was given instructions for viral illness. Again, he returns today for pain in his stomach due to coughing. And he also came in with a bag of his medications. Patient has no known allergies. Review of Systems PHQ Score Initial Depression Screen Score: 0 SCORE Physical Exam Vitals & Measurements T: 36.7 ?C(Oral) HR: 83(Peripheral) BP: 120/72 SpO2: 95% HT: 70 in HT: 178 cm WT: 87 kg WT: 191.4 lb BMI: 27.46 General: Well developed, well nourished, in no acute distress, does not appear ill or septic Eyes: Pupils equal, round, and reactive to light. Conjunctivae and sclerae normal, and extraocular movements intact Ears: No deformity or lesion of external ear. Canals and TM appear normal bilaterally. TM?s intact, not inflamed, with normal light reflex. Hearing grossly normal to conversational speech Nose: No deformity, discharge, inflammation, or lesions Mouth: Mucous membranes moist. Normal oropharynx, and posterior pharynx without lesions or exudates. Tongue normal Neck: no adenopathy Lungs: clear to auscultation throughout, no wheezing, no rales. No respiratory distress Cardio: regular rate and rhythm, no murmur Abdomen: Soft, non-distended, non-tender Musculoskeletal: No deformity or scoliosis noted. Normal range of motion. Joints normal. No erythema, edema, effusion, or ecchymosis Extremity: No clubbing, cyanosis, edema, or deformity, with normal ROM in both upper and lower bilateral extremities Neurologic: Grossly normal Skin: No rashes, ulcerations, or suspicious lesions Mental Status: Alert and oriented x3. Normal speech and thought content, normal mood and affect Assessment/Plan Backup medication was examined. Patient is taking clindamycin, flecainide,, amiodarone, Eliquis, atorvastatin, gabapentin, losartan, benzonatate. He brought all these bottles in for visit. Medication was examined. It was explained to patient that benzonatate should not react it within his medications. He was told he is probably at the end of a viral illness. And that the pain in his stomach was due to overuse of accessory muscles that are used for coughing. Patient was instructed that he can continue to use benzonatate or if he wishes he may stop. 1. Viral illness (B34.9: Viral infection, unspecified) Same as above 2. BMI 27.0-27.9,adult (Z68.27: Body mass index [BMI] 27.0-27.9, adult) The standard range for ages 18 and older is >=18.5 and < 25 kg/m2. Your BMI today was above this range, this falls in the overweight to obese category and there are medical benefits to weight loss. We can offer counselling, referral, and/or medical support in addressing this problem. Your BMI and weight management will be followed at subsequent visits. Follow-up No qualifying data available Patient Education Viral Respiratory Infection, Astk-Jp-Hpvg Problem List/Past Medical History Ongoing Axonal sensorimotor neuropathy Basal cell carcinoma BPH associated with nocturia BPH without urinary obstruction Cervicalgia Chronic constipation Chronic insomnia DDD (degenerative disc disease), cervical Dyshidrotic eczema Edema of both lower legs due to peripheral venous insufficiency Enthesopathy of right shoulder Familial hypercholesterolemia Gouty arthritis of right hand Hypertension Idiopathic small fiber sensory neuropathy Laceration of leg Left lumbar radiculitis Leg abrasion 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 Non-smoker Osteoarthritis of both hands PAF (paroxysmal atrial fibrillation) Peyronie's disease Right shoulder pain Screening PSA (prostate specific antigen) Seasonal allergies Seborrheic keratosis Senile ecchymosis Syncope Tortuous aorta Historical Atrial fibrillation BMI 25.0-25.9,adult BPH Bruise Cervical pain Cervical stenosis of spine Constipation Ecchymoses, spontaneous Fall as cause of accidental injury at home as place of occurrence Fracture in accidental fall Head injury without concussion or intracranial hemorrhage Hemorrhoids Hereditary sensory and autonomic neuropathy Indigestion Insomnia Left leg cellulitis Lumbar radiculitis Malaise and fatigue Musculoskeletal chest pain Neck pain Obstipation Over weight Rib pain on left side Right knee DJD (more content not included)... [facility] Comment on above: Result Comment: Elec tronically Signed By: Ivone Polo.[email or web address]\Date and Time Signed: 11/16/23 13:28 EST Patient Educationon 11-16-19 Patient Education Infectious Disease Viral Respiratory Infection A viral respiratory infection is an illness that affects parts of the body that are used for breathing. These include the lungs, nose, and throat. It is caused by a germ called a virus. Some examples of this kind of infection are: ? A cold. ? The flu (influenza). ? A respiratory syncytial virus (RSV) infection. What are the causes? This condition is caused by a virus. It spreads from person to person. You can get the virus if: ? You breathe in droplets from someone who is sick. ? You come in contact with people who are sick. ? You touch mucus or other fluid from a person who is sick. What are the signs or symptoms? Symptoms of this condition include: ? A stuffy or runny nose. ? A sore throat. ? A cough. ? Shortness of breath. ? Trouble breathing. ? Yellow or green fluid in the nose. Other symptoms may include: ? A fever. ? Sweating or chills. ? Tiredness (fatigue). ? Achy muscles. ? A headache. How is this treated? This condition may be treated with: ? Medicines that treat viruses. ? Medicines that make it easy to breathe. ? Medicines that are sprayed into the nose. ? Acetaminophen or NSAIDs, such as ibuprofen, to treat fever. Follow these instructions at home: Managing pain and congestion ? Take eojk-ahc-nbdhncl and prescription medicines only as told by your doctor. ? If you have a sore throat, gargle with salt water. Do this 3?4 times a day or as needed. ? To make salt water, dissolve ??1 tsp (3?6 g) of salt in 1 cup (237 mL) of warm water. Make sure that all the salt dissolves. ? Use nose drops made from salt water. This helps with stuffiness (congestion). It also helps soften the skin around your nose. ? Take 2 tsp (10 mL) of honey at bedtime to lessen coughing at night. ? Do not give honey to children who are younger than 1 year old. ? Drink enough fluid to keep your pee (urine) pale yellow. General instructions ? Rest as much as possible. ? Do not drink alcohol. ? Do not smoke or use any products that contain nicotine or tobacco. If you need help quitting, ask your doctor. ? Keep all follow-up visits. How is this prevented? ? Get a flu shot every year. Ask your doctor when you should get your flu shot. ? Do not let other people get your germs. If you are sick: ? Wash your hands with soap and water often. Wash your hands after you cough or sneeze. Wash hands for at least 20 seconds. If you cannot use soap and water, use hand electrical equipment assembler. ? Cover your mouth when you cough. Cover your nose and mouth when you sneeze. ? Do not share cups or eating utensils. ? Clean commonly used objects often. Clean commonly touched surfaces. ? Stay home from work or school. ? Avoid contact with people who are sick during cold and flu season. This is in fall and winter. Get help if: ? Your symptoms last for 10 days or longer. ? Your symptoms get worse over time. ? You have very bad pain in your face or forehead. ? Parts of your jaw or neck get very swollen. ? You have shortness of breath. Get help right away if: ? You feel pain or pressure in your chest. ? You have trouble breathing. ? You faint or feel like you will faint. ? You keep vomiting and it gets worse. ? You feel confused. These symptoms may be an emergency. Get help right away. Call your local emergency services (911 in the [place] ? Do not wait to see if the symptoms will go away. ? Do not drive yourself to the hospital. Summary ? A viral respiratory infection is an illness that affects parts of the body that are used for breathing. ? Examples of this illness include a cold, the flu, and a respiratory syncytial virus (RSV) infection. ? The infection can cause a runny nose, cough, sore throat, and fever. ? Follow what your doctor tells you about taking medicines, drinking lots of fluid, washing your hands, resting at home, and avoiding people who are sick. This information is not intended to replace advice given to you by your health care provider. Make sure you discuss any questions you have with your health care provider. Document Revised: 12/23/2021 Document Reviewed: 12/23/2021 [employer] Patient Education ? 2022 [employer]. [facility] Medicine Office/Clini c Noteon 11-14-2023 Family Medicine Office/Clinic Note Chief Complaint Cough HPI Staff Pt states he would like to be checked for COVID-19. Pt c/o cough, mild chest pain x1 day. denies SOB, sore throat, fever, chills, loss of taste smell. History of Present Illness 82 year old male with history of hypertension presents to the [facility] today with chief complaint of cough and congestion. Cough started 2 days ago but got much worse yesterday. Patient reports his cough is mainly dry in nature but does have intermittent productive cough with phlegm. He also states he has a mild amount of nasal congestion that is not bothersome. He has not taken anything over the counter for the cough or congestion. He denies any known sick contacts to include influenza or covid but would like a covid test done in office today. He is not a current or former smoker and has no history of asthma or COPD. He denies any shortness of breath, fevers, chills, body aches, throat pain, ear pain, nausea, or vomiting. Patient denies any further concerns for today's visit. Review of Systems PHQ Score Initial Depression Screen Score: 0 SCORE ROS negative unless otherwise stated in HPI. Physical Exam Vitals & Measurements BP: 118/60 HT: 70 in HT: 178 cm WT: 85.9 kg WT: 188.98 lb BMI: 27.11 General: Pleasant elderly male, no signs of acute distress. present with his today Head: Normocephalic/atraumati c Eyes: Bilateral conjunctiva within normal limits Ears: Patient wears bilateral hearing aids. Removed for exam. Bilateral TMs within normal limits. No erythema or bulging. External auditory canal within normal limits. No erythema or edema. Nose: mild nasal mucosa inflammation and edema Mouth: Moist mucous membranes. Posterior pharynx within normal limits. No erythema or exudate. No signs of peritonsillar abscess. Uvula is midline. No trismus or drooling. Neck: No palpable cervical lymphadnopathy Lungs: Normal respirations, even and unlabored. Lung sounds clear bilaterally in all mccormick. No wheezing, rhonchi, or crackles. Cardio: S1, S2. Regular rate and rhythm. No murmurs or gallops. Skin: No rashes, ulcerations, or suspicious lesions. Catracho wrap on LLE from recent fall. Mental Status: Alert and oriented x3. Normal mood and affect Assessment/Plan Patient evaluated in convenient care today for a cough x 2 days. Patient was tested for COVID-19 which was negative in office. He was prescribed Tessalon TID for 7 days. He is to continue with supportive care and rest as needed. Advised patient to follow-up with primary care provider within 3-5 days to ensure symptoms are improving. He is to go to the ED for any new onset of chest pain, shortness of breath, or any new fevers. Patient verbalizes understanding and agreeable to plan of care. I, Elisa Cooper MASTER DATA ANALYST Student, attest that I gathered the history and performed the physical and documented the note for this visit under the direction of Fidel Magdaleno PA-C. After having a itdn-le-snho interaction with the patient, I personally performed the physical exam and was responsible for the assessment/plan. I have personally reviewed and verified the documentation by the student and made correction as needed. Fidel Magdaleno PA-C 1. Cough (R05.9: Cough, unspecified) You were seen and evaluated today in convenient care for a cough. Your Covid-19 test was negative. You were prescribed Tessalon up to 3 times a day as needed for your cough. You should continue with supportive care and rest as needed. Please follow-up with your PCP in the next 3-5 days to make sure your cough is improving. Go to the ED with any new onset of chest pain or shortness of breath. Pt and both agree and understand plan. Follow-up No qualifying data available Patient Education Cough, Adult Problem List/Past Medical History Ongoing Axonal sensorimotor neuropathy Basal cell carcinoma BPH associated with nocturia BPH without urinary obstruction Cervicalgia Chronic constipation Chronic insomnia DDD (degenerative disc disease), cervical Dyshidrotic eczema Edema of both lower legs due to peripheral venous insufficiency Enthesopathy of right shoulder Familial hypercholesterolemia Gouty arthritis of right hand Hypertension Idiopathic small fiber sensory neuropathy Laceration of leg Left lumbar radiculitis Leg abrasion 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 [facility] Comment on above: Result Comment: Elec tronically Signed By: Fidel Magdaleno PA-C\.br\Date and Time Signed: 11/14/23 09:35 EST\.br\Electronically Co-Signed By: Allison KILPATRICK Student, Elisa Yan\.br\Date and Time Co-Signed: 11/13/23 14:22 EST Patient Educationon 11-13-19 Patient Education ENT Cough, Adult Coughing is a reflex that clears your throat and your airways (respiratory system). Coughing helps to heal and protect your lungs. It is normal to cough occasionally, but a cough that happens with other symptoms or lasts a long time may be a sign of a condition that needs treatment. An acute cough may only last 2?3 weeks, while a chronic cough may last 8 or more weeks. Coughing is commonly caused by: ? Infection of the respiratory systemby viruses or bacteria. ? Breathing in substances that irritate your lungs. ? Allergies. ? Asthma. ? Mucus that runs down the back of your throat (postnasal drip). ? Smoking. ? Acid backing up from the stomach into the esophagus (gastroesophageal reflux). ? Certain medicines. ? Chronic lung problems. ? Other medical conditions such as heart failure or a blood clot in the lung (pulmonary embolism). Follow these instructions at home: Medicines ? Take llyh-igi-kqsutpt and prescription medicines only as told by your health care provider. ? Talk with your health care provider before you take a cough suppressant medicine. Lifestyle ? Avoid cigarette smoke. Do not use any products that contain nicotine or tobacco, such as cigarettes, e-cigarettes, and chewing tobacco. If you need help quitting, ask your health care provider. ? Drink enough fluid to keep your urine pale yellow. ? Avoid caffeine. ? Do not drink alcohol if your health care provider tells you not to drink. General instructions ? Pay close attention to changes in your cough. Tell your health care provider about them. ? Always cover your mouth when you cough. ? Avoid things that make you cough, such as perfume, candles, cleaning products, or campfire or tobacco smoke. ? If the air is dry, use a cool mist vaporizer or humidifier in your bedroom or your home to help loosen secretions. ? If your cough is worse at night, try to sleep in a semi-upright position. ? Rest as needed. ? Keep all follow-up visits as told by your health care provider. This is important. Contact a health care provider if you: ? Have new symptoms. ? Cough up pus. ? Have a cough that does not get better after 2?3 weeks or gets worse. ? Cannot control your cough with cough suppressant medicines and you are losing sleep. ? Have pain that gets worse or pain that is not helped with medicine. ? Have a fever. ? Have unexplained weight loss. ? Have night sweats. Get help right away if: ? You cough up blood. ? You have difficulty breathing. ? Your heartbeat is very fast. These symptoms may represent a serious problem that is an emergency. Do not wait to see if the symptoms will go away. Get medical help right away. Call your local emergency services (911 in the [place] Do not drive yourself to the hospital. Summary ? Coughing is a reflex that clears your throat and your airways. It is normal to cough occasionally, but a cough that happens with other symptoms or lasts a long time may be a sign of a condition that needs treatment. ? Take jpjm-swm-zttvcee and prescription medicines only as told by your health care provider. ? Always cover your mouth when you cough. ? Contact a health care provider if you have new symptoms or a cough that does not get better after 2?3 weeks or gets worse. This information is not intended to replace advice given to you by your health care provider. Make sure you discuss any questions you have with your health care provider. Document Revised: 10/07/2019 Document Reviewed: 10/07/2019 [employer] Patient Education ? 2022 [employer]. [facility] PT - Assessmentson 4 PT - Assessments [id number] TIFF [facility] Consultation Noteon 10-30-19 24 Consultation Note [id number] IFF [facility] CT Head or Brain w/o Contras ton 10-29-2023 CT Head or Brain w/o Contrast Exam Date/Time: 10/29/2023 15:11 EST Reason for Exam: Head trauma, minor;Other (please specify) Report IMPRESSION: NO ACUTE INTRACRANIAL PROCESS IDENTIFIED. EXAM: CT Head or Brain w/o Contrast DATE: 10/29/2023 3:01 PM CLINICAL HISTORY: Head trauma, minor. COMPARISON: 03/31/2023. TECHNIQUE: Routine. All CT scans at this facility use dose modulation, iterative reconstruction, and/or weight based dosing when appropriate to reduce radiation dose to as low as reasonably achievable. FINDINGS: There is no intracranial hemorrhage, mass effect, midline shift, extra-axial collection, evidence of hydrocephalus, skull fracture, or a recent ischemic infarct identified. Mild generalized cerebral volume loss and minimal chronic white matter changes are again noted. The mastoid air cells and visualized paranasal sinuses are essentially clear. Ordering Provider: Shantell Andujar FINAL REPORT Dictated: 10/29/2023 3:17 pm Alexandru Kumar MD Signed (Electronic Signature): 10/29/2023 3:17 pm Signed by: Alexandru Kumar MD Transcribed by: ALEJANDRINA Technologist: YAZMIN [facility] Consent for Treatmenton 10-03 Consent for Treatment [id number] IFF [facility] Discharge Instructionson Discharge Instructions [id number] 0TIFF [facility] ED Clinical Summaryon 2023 ED Clinical Summary (Inserted Image. Jennifer ble to display) [place] [id number] ED Clinical Summary Person Information Name: JOSE ROCHA/[facility] Age: 82 Years : 1940 Sex: Male Language: Georgian PCP: Jamison TELLEZ DO, FAAFP Marital Status: Phone: [phone] Visit Id: Visit Reason: Arm laceration; Leg laceration; Shoulder pain-swelling; Fall; FALL - ARM & LEG PAIN Speciality: Acuity: 3 Enc Type: Emergency Med Service: Emergency Arrival: 10/29/2023 13:34:47 Discharge: 10/29/2023 16:48:15 LOS: 000 03:14 Checkin: 10/29/2023 13:34:47 Checkout: 10/29/2023 16:48:15 Dispo Type: Home (Routine DC) EVENTS: Event Name Event Status Request Date/Time Start Date/Time Complete Date/Time Arrive Complete 10/29/2023 13:34:47 10/29/2023 13:34:47 10/29/2023 13:34:47 Document Home Meds Request 10/29/2023 13:34:47 Triage Complete 10/29/2023 13:34:47 10/29/2023 14:00:19 10/29/2023 14:00:19 Bed Assign Complete 10/29/2023 13:52:23 10/29/2023 13:52:23 10/29/2023 13:52:23 Dr Exam Complete 10/29/2023 13:52:23 10/29/2023 13:55:24 10/29/2023 13:55:24 RN Exam Complete 10/29/2023 13:52:23 10/29/2023 14:42:03 10/29/2023 14:42:03 Registration Complete 10/29/2023 13:55:24 10/29/2023 14:00:25 10/29/2023 14:00:25 Trauma II Request 10/29/2023 13:55:35 Reg Complete Request 10/29/2023 14:00:25 Reg Bed Request Complete 10/29/2023 14:00:25 10/29/2023 14:00:25 10/29/2023 14:00:25 Patient Care Complete 10/29/2023 14:01:52 10/29/2023 14:35:29 X-Ray Complete 10/29/2023 14:24:48 10/29/2023 14:48:59 10/29/2023 15:03:22 CT Complete 10/29/2023 14:24:48 10/29/2023 15:01:33 10/29/2023 15:11:38 Trauma II Request 10/29/2023 14:39:28 Wet Read Request 10/29/2023 15:03:22 Patient Care Complete 10/29/2023 16:29:25 10/29/2023 16:44:37 Discharge Complete 10/29/2023 16:32:47 10/29/2023 16:48:20 10/29/2023 16:48:20 Transfer Complete 10/29/2023 16:48:20 10/29/2023 16:48:20 10/29/2023 16:48:20 ADDRESS: [address] [place] [phone] PHYS DOC NOTES: MEDICAL INFORMATION: Prescriptions Given: Medications to Continue with No Changes Other Medications amlodipine (amLODIPine 5 mg Tab) 1 Tablets By Mouth at bedtime. apixaban (Eliquis 5 mg oral tablet) 1 Tablets By Mouth 2 times a day. Refills: 0. atorvastatin (Lipitor 20 mg Tab) 1 Tablets By Mouth once a day (at bedtime). Refills: 3. cholecalciferol (Vitamin D3 50 mcg (2000 intl units) oral tablet, chewable) 1 Tablets By Mouth every day. flecainide (flecainide 50 mg Tab) 1 Tablets By Mouth every 12 hours. Refills: 0. gabapentin (gabapentin 300 mg Cap) 1 Capsules By Mouth every day. losartan (losartan 50 mg Tab) 1 Tablets By Mouth every day. multivitamin with minerals (One A Day Men's Complete) By Mouth every day. psyllium (Metamucil) By Mouth. tamsulosin (Flomax 0.4 mg Cap) 1 Capsules By Mouth every day. Refills: 3. zolpidem (zolpidem 12.5 mg oral ER Tab) 1 Tablets By Mouth once a day (at bedtime) as needed for sleep. 30 day supply. Refills: 5. PATIENT EDUCATION INFORMATION: Instructions: Fall Prevention in the Home, Adult; How to Use a Sling; Shoulder Sprain; Skin Tear Follow up: With: Address: When: Mj Sevilla [address] [place] [address] Business (1) In 3 days 11/01/2023 Comments: Follow-up with Dr. Sevilla for the shoulder sprain. Return to the emergency room if your pain gets worse or any new symptoms With: Address: When: Jamison TELLEZ [address] [place] [address] Business (1) In 3 days DIAGNOSIS: 1:Sprain of left shoulder; 2:Fall; 3:Skin tear of upper extremity; 4:Noninfected skin tear of lower extremity [facility] ED Note-Physicianon 10-29-19 ED Note-Physician Basic Information Time Seen: Shantell Andujar M.D. 10/29/2023 13:55 Chief Complaint pt tripped over 's rollator last night around 10pm, ems came and bandaged pt up, didn't want to be seen at that time. cuts to left lower arm and left lower leg. c/o pain in lt shoulder. is on blood thinners, no loc, didn't hit head. History of Present Illness The patient is an 82-year-old male past medical history of atrial fibrillation on Eliquis who presented to the emergency room with fall. The patient states last night he tripped over his 's walker and he fell. He denies hitting his head. Denies any headache, denies any neck pain. He is complaining of left shoulder pain. The patient denies any loss of consciousness. He denies any chest pain, denies any shortness of breath. He denies any pain on his abdomen. He denies any back pain. The patient states that EMS arrived to his home last night and they dressed his wounds. The patient denies any other associated symptoms or any other injuries. Review of Systems Additional ROS info: Except as noted in the above Review of Systems and in the History of Present Illness all other systems have been reviewed and are negative or noncontributory. Physical Exam Vitals & Measurements T: 36.6 ?C(Oral) HR: 76(Peripheral) RR: 18 BP: 112/65 SpO2: 95% HT: 178 cm WT: 85.9 kg BMI: 27.11 General: alert, no acute distress Skin: warm, dry Head: no trauma, normocephalic Neck: Trachea midline, no tenderness, supple Eye: normal conjunctiva, sclera clear ENMT: Oral mucosa moist Cardiovascular: regular rate and rhythm, Respiratory: Lungs CTA, respirations non labored, breath sounds equal, symmetrical expansion Chest wall: no deformity,notenderness Gastrointestinal: soft, non distended, no tenderness, no guarding, normal bowel sounds, Back: No tenderness, Normal ROM, Normal alignment, no step-offs. Extremities: no deformity, the patient has a small skin tear on the left forearm and left lower leg. The bleeding is controlled. Neurological: Alert and oriented, CN II-XII intact, motor strength equal & normal bilaterally, sensation equal & normal bilaterally, speech normal, no focal neuro deficits Psychiatric: cooperative, affect appropriate for age, Medical Decision Making MEDICAL DECISION MAKING Number and Complexity of Problems Differential Diagnosis: [] [facility] Data External documents reviewed: [] My EKG interpretation: [] My CT interpretation: [] My X-ray interpretation: [] My Ultrasound interpretation: [] Decision rules/scores evaluated: [] Discussed with: [] Treatment and Disposition ED Course: The patient presented with mechanical fall. Level 2 trauma was called. The patient is on Eliquis. CT of the brain shows no acute intracranial process. The x-ray of the shoulder shows no fracture or dislocation. The patient was provided with sling. He declined pain medication in the emergency room. Will discharge patient home follow-up with Ortho. The patient was instructed to return to the emergency room if his pain gets worse, pain gets worse or any new symptoms. Shared decision making: [] Code status: [] Assessment/Plan 1. Sprain of left shoulder (S43.402A: Unspecified sprain of left shoulder joint, initial encounter) 2. Fall (W19.XXXA: Unspecified fall, initial encounter) 3. Skin tear of upper extremity (S41.119A: Laceration without foreign body of unspecified upper arm, initial encounter) 4. Noninfected skin tear of lower extremity (S81.819A: Laceration without foreign body, unspecified lower leg, initial encounter) Orders: CT Head or Brain w/o Contrast Sling Apply XR Shoulder Complete Left Disposition Plan Patient Discharge Condition Stable Discharge Disposition Discharge home Discharge Prescription List Prescriptions No active prescription medications Follow-up With When Contact Information Mj Sevilla In 3 days 11/01/2023 EST [address] [place] [address]- Business (1) Additional Instructions: Follow-up with Dr. Sevilla for the shoulder sprain. Return to the emergency room if your pain gets worse or any new symptoms Jamison PREMKARMA In 3 days [address], [place] [address]- Business (1) Additional Instructions: Patient Education Fall Prevention in the Home, Adult How to Use a Sling Shoulder Sprain Skin Tear Problem List/Past Medical History Ongoing Axonal sensorimotor neuropathy Basal cell carcinoma BPH associated with nocturia BPH without urinary obstruction Cervicalgia Chronic constipation Chronic insomnia DDD (degenerative disc disease), cervical Dyshidrotic eczema Edema of both lower legs due to peripheral venous insufficiency Enthesopathy of right shoulder Familial hypercholesterolemia Gouty arthritis of right hand Hypertension Idiopathic small fiber sensory neuropathy Laceration of leg Left lumbar radiculitis Leg abrasion M (more content not included)... [facility] Comment on above: Result Comment: Elec tronically Signed By: Con Shields, Shantell Aceves\.br\Date and Time Signed: 10/29/23 19:21 EST ED Patient Education Noteon 10-29-2023 ED Patient Education Note Caregiving Fall Prevention in the Home, Adult Falls can cause injuries and affect people of all ages. There are many simple things that you can do to make your home safe and to help prevent falls. Ask for help when making these changes, if needed. What actions can I take to prevent falls? General instructions ? Use good lighting in all rooms. Replace any light bulbs that burn out, turn on lights if it is dark, and use night-lights. ? Place frequently used items in ibiw-fr-qoyer places. Lower the shelves around your home if necessary. ? Set up furniture so that there are clear paths around it. Avoid moving your furniture around. ? Remove throw rugs and other tripping hazards from the floor. ? Avoid walking on wet floors. ? Fix any uneven floor surfaces. ? Add color or contrast paint or tape to grab bars and handrails in your home. Place contrasting color strips on the first and last steps of staircases. ? When you use a stepladder, make sure that it is completely opened and that the sides and supports are firmly locked. Have someone hold the ladder while you are using it. Do not climb a closed stepladder. ? Know where your pets are when moving through your home. What can I do in the bathroom? ? Keep the floor dry. Immediately clean up any water that is on the floor. ? Remove soap buildup in the tub or shower regularly. ? Use nonskid mats or decals on the floor of the tub or shower. ? Attach bath mats securely with double-sided, nonslip rug tape. ? If you need to sit down while you are in the shower, use a plastic, nonslip stool. ? Install grab bars by the toilet and in the tub and shower. Do not use towel bars as grab bars. What can I do in the bedroom? ? Make sure that a bedside light is easy to reach. ? Do not use oversized bedding that reaches the floor. ? Have a firm chair that has side arms to use for getting dressed. What can I do in the kitchen? ? Clean up any spills right away. ? If you need to reach for something above you, use a sturdy step stool that has a grab bar. ? Keep electrical cables out of the way. ? Do not use floor irish or wax that makes floors slippery. If you must use wax, make sure that it is non-skid floor wax. What can I do with my stairs? ? Do not leave any items on the stairs. ? Make sure that you have a light switch at the top and the bottom of the stairs. Have them installed if you do not have them. ? Make sure that there are handrails on both sides of the stairs. Fix handrails that are broken or loose. Make sure that handrails are as long as the staircases. ? Install non-slip stair treads on all stairs in your home. ? Avoid having throw rugs at the top or bottom of stairs, or secure the rugs with carpet tape to prevent them from moving. ? Choose a carpet design that does not hide the edge of steps on the stairs. ? Check any carpeting to make sure that it is firmly attached to the stairs. Fix any carpet that is loose or worn. What can I do on the outside of my home? ? Use bright outdoor lighting. ? Regularly repair the edges of walkways and driveways and fix any cracks. ? Remove high doorway thresholds. ? Trim any shrubbery on the main path into your home. ? Regularly check that handrails are securely fastened and in good repair. Both sides of all steps should have handrails. ? Install guardrails along the edges of any raised decks or porches. ? Clear walkways of debris and clutter, including tools and rocks. ? Have leaves, snow, and ice cleared regularly. ? Use sand or salt on walkways during winter months. ? In the garage, clean up any spills right away, including grease or oil spills. What other actions can I take? ? Wear closed-toe shoes that fit well and support your feet. Wear shoes that have rubber soles or low heels. ? Use mobility aids as needed, such as canes, walkers, scooters, and crutches. ? Review your medicines with your health care provider. Some medicines can cause dizziness or changes in blood pressure, which increase your risk of falling. Talk with your health care provider about other ways that you can decrease your risk of falls. This may include working with a physical therapist or boxing trainer to improve your strength, balance, and endurance. Where to find more information ? Centers for Disease Control and Prevention, STEADI: www.cdc.gov ? National [place] on Aging: www.kourtney.nih.gov Contact a health care provider if: ? You are afraid of falling at home. ? You feel weak, drowsy, or dizzy at home. ? You fall at home. Summary ? There are many simple things that you can do to make your home safe and to help prevent falls. ? Ways to make your home safe include removing tripping hazards and installing grab bars in the bathroom. ? Ask for help when making these changes in your home. This information is not intended to replace advice given to you by your health ca (more content not included)... [facility] ED Patient Summaryon 024 ED Patient Summary (Inserted Image. Jennifer ble to display) [place] [id number] Patient Discharge Instructions Person Information Name: JOSE ROCHA Age: 82 Years Arrival Date: 10/29/2023 13:34:47 Discharge Diagnosis: 1:Sprain of left shoulder; 2:Fall; 3:Skin tear of upper extremity; 4:Noninfected skin tear of lower extremity Primary Care Physician: Jamison TELLEZ DO, FAAFP Provider Information Primary Provider: Shantell Andujar M.D. Advanced Environmental [facility] Nurse:None The exam and treatment you received in the Emergency Department were for an urgent problem and are not intended as complete care. It is important that you follow up with a doctor, nurse practitioner, or physician?s medical assistant ob gyn for ongoing care. If your symptoms become worse or you do not improve as expected and you are unable to reach your usual health care provider, you should return to the Emergency Department. We are available 24 hours a day. JOSE ROCHA has been given the following list of patient education materials, prescriptions and follow-up instructions: Follow-up Instructions: With: Address: When: Mj Sevilla [address] [place], [place] [id number] [employer] (1) In 3 days 11/01/2023 Comments: Follow-up with Dr. Sevilla for the shoulder sprain. Return to the emergency room if your pain gets worse or any new symptoms With: Address: When: Jamison TELLEZ [address] [facility], [facility] A [place] [id number] Business (1) In 3 days In the event that this physician does not participate in your insurance network, please consult with your insurance company to find a nearby participating provider. Patient Education Materials: Fall Prevention in the Home, Adult; How to Use a Sling; Shoulder Sprain; Skin Tear A MESSAGE TO ALL PATIENTS REGARDING OPIOIDS PRESCRIPTION OPIOIDS: WHAT YOU NEED TO KNOW Prescription opioids can be used to help relieve yqboldvh-zp-plzbel pain and are often prescribed following a surgery or injury, or for certain health conditions. These medications can be an important part of the treatment but also come with serious risks. It is important to work with your healthcare provider to make sure you are getting the safest, most effective care. WHAT ARE THE RISKS AND SIDE EFFECTS OF OPIOID USE? Prescription opioids carry serious risks of addiction and overdose, especially with prolonged use. An opioid overdose, often marked by slowed breathing, can cause sudden . The use of prescription opioids can have a number of side effects as well, even when taken as directed: ? Tolerance?meaning you might need to take more of the medication for the same pain relief ? Physical dependence?meaning you have symptoms of withdrawal when a medication is stopped ? Increased sensitivity to pain ? Constipation ? Nausea, vomiting, and dry mouth ? Sleepiness and dizziness ? Confusion ? Depression ? Low levels of testosterone that can result in lower sex drive, energy, and strength ? Itching and sweating RISKS ARE GREATER WITH: ? History of drug misuse, substance use disorder, or overdose ? Mental health conditions (such as depression or anxiety) ? Sleep apnea ? Older age (65 years and older) ? Avoid alcohol while taking prescription opioids. Also, unless specifically advised by your health care provider, medications to avoid include: ? Benzodiazepines (such as Xanax or Valium) ? Muscle relaxants (such as Soma or Flexeril) ? Hypnotics (such as Ambien or Lunesta) ? Other prescription opioids KNOW YOUR OPTIONS Talk to your health care provider about ways to manage your pain that don?t involve prescription opioids. Some of these options may actually work better and have fewer risks and side effects. Options may include: ? Pain relievers such as acetaminophen, ibuprofen, and naproxen ? Some medication that are also used for depression or seizures ? Physical therapy and exercise ? Cognitive behavioral therapy, a psychological, goal-directed approach, in which patients learn how to modify physical, behavioral, and emotional triggers of pain and stress. IF YOU ARE PRESCRIBED OPIOIDS FOR PAIN: ? Never take opioids in greater amounts or more often than prescribed. ? Follow up with your primary health care provider. o Work together to create a plan on how to manage your pain. o Talk about ways to help manage your pain that don?t involve prescription opioids. o Talk about any and all concerns and side effects. ? Help prevent misuse and abuse o Never sell or share prescription opioids. o Never use another person?s prescription opioids. ? Store prescription opioids in a secure place and out of reach of others (this may include visitors, children, friends, and family). ? Safely dispose of unused prescription opioids: Find your community drug take-back program or your pharmacy mail-back program, or flush them (more content not included)... [facility] ED Traumaon 10-29-2023 ED Trauma [id number] 0TIFF [facility] XR Shoulder Complete Lefton 10-29-2023 XR Shoulder Complete Left Exam Date/Time: 10/29/2023 15:03 EST Reason for Exam: Pain, Traumatic Report IMPRESSION: NO DISPLACED FRACTURE OR SIGNIFICANT POSTTRAUMATIC COMPLICATION IDENTIFIED. EXAM: XR Shoulder Complete Left DATE: 10/29/2023 2:48 PM CLINICAL HISTORY: Pain, Traumatic. COMPARISON: None available. TECHNIQUE: AP, internal and external rotation AP, transscapular, and axillary radiographs of the left shoulder were obtained. FINDINGS: There is no fracture, dislocation, acromioclavicular joint separation, significant narrowing of the subacromial space, pathologic calcifications, or other findings of concern identified. Mild degenerative changes are present. Ordering Provider: Shantell Andujar FINAL REPORT Dictated: 10/29/2023 5:12 pm Alexandru Kumar MD Signed (Electronic Signature): 10/29/2023 5:12 pm Signed by: Alexandru Kumar MD Transcribed by: ALEJANDRINA Technologist: HAZEL Technical Comments Radiation Dose: Ka,r in mGy = na DAP = na [facility] PT - Home Exercise Programon 10-18-2023 PT - Home Exercise Program [id number] TIFF [facility] Population Healthon 10-17-19 Population Health Case Information Case Priority: None Programs: -- Referral Source: [employer] Referral Reason: Care coordination Case Type: Chronic Care Management Risk Score: -- Case Status: Active (June 23, 2022) Date Assigned: June 16, 2022 Assigned By: Jossy Francis RN Date Enrolled: June 23, 2022 Assigned Primary Personnel: Jossy Francis RN Assigned Secondary Personnel: -- Case Physician: Jamison TELLEZ DO, FAAFP Problems Ongoing Axonal sensorimotor neuropathy Basal cell carcinoma BPH associated with nocturia BPH without urinary obstruction Cervicalgia Chronic constipation Chronic insomnia DDD (degenerative disc disease), cervical Dyshidrotic eczema Edema of both lower legs due to peripheral venous insufficiency Enthesopathy of right shoulder Familial hypercholesterolemia Gouty arthritis of right hand Hypertension Idiopathic small fiber sensory neuropathy Laceration of leg Left lumbar radiculitis Leg abrasion 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 Non-smoker Osteoarthritis of both hands PAF (paroxysmal atrial fibrillation) Peyronie's disease Right shoulder pain Screening PSA (prostate specific antigen) Seasonal allergies Seborrheic keratosis Senile ecchymosis Syncope Tortuous aorta Historical Atrial fibrillation BMI 25.0-25.9,adult BPH Bruise Cervical pain Cervical stenosis of spine Constipation Ecchymoses, spontaneous Fall as cause of accidental injury at home as place of occurrence Fracture in accidental fall Head injury without concussion or intracranial hemorrhage Hemorrhoids Hereditary sensory and autonomic neuropathy Indigestion Insomnia Left leg cellulitis Lumbar radiculitis Malaise and fatigue Musculoskeletal chest pain Neck pain Obstipation Over weight Rib pain on left side Right knee DJD Right wrist pain Scalp abrasion Skin cancer Skin tear of upper extremity Sleep apnea Sore throat Sternal fracture Tic douloureux Tingling Trigeminal neuralgia Urinary retention Procedure/Surgical History Cardioversion (03/30/2023), Left Total Hip Arthroplasty (02/02/2016), bilateral cataract implants, Carpal tunnel release, Stephany fundoplication, skin cancer removed, stomach surgery, TURP - Transurethral resection of prostate. Home Medications amLODIPine 5 mg Tab, 5 mg= 1 tab(s), Oral, Bedtime, Not taking Eliquis 5 mg oral tablet, 5 mg= 1 tab(s), Oral, BID flecainide 50 mg Tab, 50 mg= 1 tab(s), Oral, q12hr Flomax 0.4 mg Cap, 0.4 mg= 1 cap(s), Oral, Daily, 3 refills gabapentin 300 mg Cap, 300 mg= 1 cap(s), Oral, Daily Lipitor 20 mg Tab, 20 mg= 1 tab(s), Oral, Once a day (at bedtime), 3 refills losartan 50 mg Tab, 50 mg= 1 tab(s), Oral, Daily Metamucil, Oral One A Day Men's Complete, Oral, Daily Vitamin D3 50 mcg (2000 intl units) oral tablet, chewable, 50 mcg= 1 tab(s), Oral, Daily zolpidem 12.5 mg oral ER Tab, 12.5 mg= 1 tab(s), Oral, Once a day (at bedtime), PRN, 5 refills Allergies No Known Allergies Social History Alcohol - Denies Alcohol Use, 07/12/2012 Substance Abuse - Denies Substance Abuse, 07/12/2012 Tobacco - Denies Tobacco Use, 07/12/2012 Never (less than 100 in lifetime) Tobacco Use:. Never Smokeless Tobacco Use:., 09/18/2023 Family History Acute myocardial infarction: Father. Alzheimer's disease: Sister. Kidney disease: Mother. Screenings and Assessments 07/11/22 13:04:00 Result Name Value Comment Phone Call Monitoring Consent Agreed to continue call Phone Verification Patient Information Full name, street address and date of verified CM Program Enrollment Provides verbal consent for enrollment CCM Program Enrollment Verbally agreed to receive [facility] services CCM Written Consent Written consent obtained CCM Verbal Consent By Self 06/23/22 11:00:00 Result Name Value Comment HIPPA Verified Type of Contact Telephone Information Given by Self CM Preferred Spoken Language Georgian CM Preferred Written Language Georgian Preferred Communication Mode Verbal Ability to Read/Write Able to read, Able to write Appointment Reminders Phone Preferred Way to Send PHI Standard mail Able to Read Georgian Able to read Georgian Learning Style Pref Patient Printed materials Teaching Method Printed materials Barriers to Learning None evident Best Time to Visit or Contact 1-5 pm Best Day to Visit or Contact No preference Response to Current Year Correct Cognitive Deficit No [facility] Test Score Indication None or no significant cognitive impairment Response to Current Month Correct (more content not included)... [facility] PT - Home Exercise Programon 10-09-2023 PT - Home Exercise Program [id number] TIFF [facility] PT - Assessmentson PT - Assessments [id number] IFF [facility] PT - Consentson 10-06-2023 PT - Consents [id number] IFF [facility] PT - Home Exercise Programon 10-06-2023 PT - Home Exercise Program [id number] IFF [facility] Consent for Treatmenton Consent for Treatment [id number] IFF [facility] Consultation Noteon 10-05-19 Consultation Note [id number] IFF [facility] Ambulatory Visit Summaryon 11-19-2022 Ambulatory Visit Summary JOSE ROCHA :1940 Visit Date:09/18/2023 Ambulatory Visit Instructions Your Diagnosis PAF (paroxysmal atrial fibrillation) Hypertension Idiopathic small fiber sensory neuropathy Familial hypercholesterolemia Chronic insomnia BPH associated with nocturia BMI 27.0-27.9,adult Left lumbar radiculitis Laceration of leg Nocturia These Are Your Goals Hypertension: Maintain blood pressure in therapeutic range - Progressing Interventions: Maintain an active lifestyle - Progressing Monitor Sodium intake - Progressing Monitor blood pressure daily - Progressing Review education booklet - Done Take medications as prescribed - Progressing PAF: Avoid complications Interventions: Monitor for symptoms of complication - Progressing Read education material - Done Take Medications as Prescribed - Progressing Neuropathy: Remain free from injury Interventions: Continue podiatry follow ups as scheduled - Progressing Examine lower extremities - Progressing Take medications as prescribed - Progressing Your Care Team Attending Physician - Jamison TELLEZ DO, FAAFP Primary Care Physician - Jamison TELLEZ DO, FAAFP This Is Your Medications List Contact prescribing physician if questions or concerns amlodipine (amLODIPine 5 mg Tab) apixaban (Eliquis 5 mg oral tablet) atorvastatin (Lipitor 20 mg Tab) cholecalciferol (Vitamin D3 50 mcg (2000 intl units) oral tablet, chewable) flecainide (flecainide 50 mg Tab) gabapentin (gabapentin 300 mg Cap) losartan (losartan 50 mg Tab) multivitamin with minerals (One A Day Men's Complete) psyllium (Metamucil) tamsulosin (Flomax 0.4 mg Cap) zolpidem (zolpidem 12.5 mg oral ER Tab) Procedures Performed Cardioversion (03/30/2023), Left Total Hip Arthroplasty (02/02/2016), bilateral cataract implants, Carpal tunnel release, Stephany fundoplication, skin cancer removed, stomach surgery, TURP - Transurethral resection of prostate. Discharge Vitals Temperature (Oral) 36.6 ?C Heart Rate (Peripheral) 60 Respiratory Rate 18 Blood Pressure 118/62 Height 178 cm Height 70 in Weight 87.6 kg Weight 192.72 lb BMI 27.65 What to do next Scheduled Follow-Up Appointments Monday 2:30 PM EDT Where: [facility] Family Medicine Office/Clini c Noteon 09-18-2023 Family Medicine Office/Clinic Note Chief Complaint Patient here for 3 month f/u on htn, paf, bph, insomnia, DDD History of Present Illness Here for follow up Have you had any ER visits or any hospitalizations since last visit? no Are you compliant with your medications and no difficulty affording your medications? yes Do you have side effects from the medication? no Are you compliant with your diet? yes Do you exercise? yes Do you have any of the following symptoms? Chest pain? no Palpitations? no MATTHEWS/SOB? no Orthopnea? no PND? no Edema? no Have you had any recent cardiopulmonary testing? no Review of Systems PHQ Score Initial Depression Screen Score: 0 SCORE ROS - Provider Constitutional: no fever, no chills, no sweats, no weakness. Skin: no Jaundice, no rash, no lesions, no petechiae. ENMT: no ear pain, no sore throat, no congestion, no hoarseness. Respiratory: no shortness of breath, no cough, no orthopnea, no wheezing. Cardiovascular: no chest pain, no palpitations, no edema. Gastrointestinal: no nausea, no vomiting, no diarrhea, no GI bleeding.no constipationnoheartburn Genitourinary: no dysuria, no hematuria, no discharge, no pain.nofreq/urgency Musculoskeletal: yes back pain, no trauma.yesjoint pain Neurologic: no headache, no dizziness, no numbness, no weakness. Psychiatric: no sleeping problems, no irritability, no mood swings/depression. Heme/Lymph: no bleeding tendency, no bruising tendency, no petechiae, no swollen lymph nodes no Allergy/Imunology no seasonal allergies, no food allergies, no recurrent infections, no impaired immunity. Additional ROS info: Except as noted in the above Review of Systems and in the History of Present Illness all other systems have been reviewed and are negative or noncontributory. Physical Exam Vitals & Measurements T: 36.6 ?C(Oral) HR: 60(Peripheral) RR: 18 BP: 118/62 SpO2: 98% HT: 70 in HT: 178 cm WT: 87.6 kg WT: 192.72 lb BMI: 27.65 General: Well developed, well nourished, in no acute distress Mouth: Mucous membranes moist. Normal oropharynx, and posterior pharynx without lesions or exudates. Tongue normal Neck: Neck supple. No masses or palpable cervical nodes. Trachea midline. Thyroid without nodules, masses, tenderness, or enlargement Lungs: Normal respiratory effort and clear to auscultation Cardio: Regular rate and rhythm, normal S1 and S2, no murmur, no rub Abdomen: Soft, non-distended, non-tender. no G/R/S/Masses Musculoskeletal: Pt examined in sitting and standing positions: MS: Scoliosis 10* LSS F/E: Normal 90 active flexion and 210* active extension SB: 25* R and L DTR's: Normal Patellar Reflexes Toe and Heal Walking: Normal SLR's: R Negative L Negative Sciatic Notch Tenderness R Normal L Normal Extremity: No clubbing, cyanosis, edema, or deformity, with normal ROM in both upper and lower bilateral extremities Neurologic: Grossly normal Skin: No rashes, ulcerations, or suspicious lesions Mental Status: Alert and oriented x3. Normal mood and affect Assessment/Plan 1. PAF (paroxysmal atrial fibrillation) (I48.0: Paroxysmal atrial fibrillation) Good control with Eliquis 5 mg p.o. twice daily and flecainide 50 mg p.o. every 12 hours, follow-up with cardiology 2. Hypertension (I10: Essential (primary) hypertension) Good control with losartan 50 mg p.o. daily, amlodipine 5 mg p.o. daily diet and exercise and good sleep with zolpidem 3. Idiopathic small fiber sensory neuropathy (G60.8: Other hereditary and idiopathic neuropathies) Gabapentin 300 mg p.o. daily 4. Familial hypercholesterolemia (E78.01: Familial hypercholesterolemia) Atorvastatin 20 mg p.o. nightly will recommend co-Q10 5. Chronic insomnia (F51.04: Psychophysiologic insomnia) Zolpidem 12.5 mg ER p.o. nightly, good control 6. BPH associated with nocturia (N40.1: Benign prostatic hyperplasia with lower urinary tract symptoms) Flomax 0.4 mg p.o. nightly helpful 7. BMI 27.0-27.9,adult (Z68.27: Body mass index [BMI] 27.0-27.9, adult) The standard range for ages 18 and older is >=18.5 and < 25 kg/m2. Your BMI today was above this range, this falls in the overweight to obese category and there are medical benefits to weight loss. We can offer counselling, referral, and/or medical support in addressing this problem. Your BMI and weight management will be followed at subsequent visits. 8. Left lumbar radiculitis (M54.16: Radiculopathy, lumbar region) 2* to fall and hit L leg, PT [facility] [place] [facility] Ordered: [facility] [place] [facility] Outpatient Physical Therapy Evaluate Patient, Develop a Plan of Care, & Implement Plan 9. Laceration of leg (S71.111A: Laceration without foreign body, right thigh, initial encounter) 2-3 in lac healing well w/o s/s of infection, fell [address] Jo was following day of EMG. EMG on hold. dT UTD Nocturia (R35.1: Nocturia) Total time spent preparing the chart, conducting of the encounter with the patient and family and time spent documenting, reviewing, and orderi (more content not included)... [facility] Comment on above: Result Comment: Elec tronically Signed By: GEOFF PINTO FAAFP, Jamison Campos\.br\Date and Time Signed: 09/18/23 13:56 EST Patient Educationon 09-18-20 Patient Education Orthopedics Lumbosacral Radiculopathy Lumbosacral radiculopathy is a condition that involves the spinal nerves and nerve roots in the low back and bottom of the spine. The condition develops when these nerves and nerve roots move out of place or become inflamed and cause symptoms. What are the causes? This condition may be caused by: ? Pressure from a disk that bulges out of place (herniated disk). A disk is a plate of soft cartilage that separates bones in the spine. ? Disk changes that occur with age (disk degeneration). ? A narrowing of the bones of the lower back (spinal stenosis). ? A tumor. ? An infection. ? An injury that places sudden pressure on the disks that cushion the bones of your lower spine. What increases the risk? You are more likely to develop this condition if: ? You are a male who is 30?50 years old. ? You are a female who is 50?60 years old. ? You use improper technique when lifting things. ? You are overweight or live a sedentary lifestyle. ? You smoke. ? Your work requires frequent lifting. ? You do repetitive activities that strain the spine. What are the signs or symptoms? Symptoms of this condition include: ? Pain that goes down from your back into your legs (sciatica), usually on one side of the body. This is the most common symptom. The pain may be worse when you sit, cough, or sneeze. ? Tingling and numbness in your legs. ? Muscle weakness in your legs. ? Loss of bladder control or bowel control. How is this diagnosed? This condition may be diagnosed based on: ? Your symptoms and medical history. ? A physical exam. If the pain lasts, you may have tests, such as: ? MRI. ? X-ray. ? CT scan. ? A type of CT scan used to examine the spinal canal after injecting a dye into your spine (myelogram). ? A test to measure how electrical impulses move through a nerve (nerve conduction study). ? A test to measure the electrical activity in muscles (electromyogram). How is this treated? In many cases, treatment is not needed for this condition. With rest, the condition usually gets better over time. If treatment is needed, it may include: ? Working with a physical therapist to improve strength and flexibility. ? Taking pain medicine. ? Applying heat or ice or both to the affected areas. ? Having chiropractic spinal manipulation. ? Using transcutaneous electrical nerve stimulation (TENS) therapy. ? Getting a steroid injection in the spine. ? Having surgery. This may be needed if other treatments do not help. Different types of surgery may be done depending on the cause of this condition. Follow these instructions at home: Activity ? Avoid bending and any other activities that make the problem worse. ? Maintain a proper position when standing or sitting. ? When standing, keep your upper back and neck straight with your shoulders pulled back. Avoid slouching. ? When sitting, keep your back straight and relax your shoulders. Do not round your shoulders or pull them backward. ? Do not sit or machine compositor one place for long periods of time. ? Take brief periods of rest throughout the day. This will reduce your pain. It is usually better to rest by lying down or standing, not sitting. ? Mix in mild activity or stretching between long periods of rest. This will help to prevent stiffness and pain. ? Get regular exercise. Ask your health care provider what activities are safe for you. If you were shown how to do any exercises or stretches, do them as told by your health care provider. ? You may have to avoid lifting. Ask your health care provider how much you can safely lift. ? Always use proper lifting technique, which includes: ? Bending your knees. ? Keeping the load close to your body. ? Avoiding twisting. Managing pain ? If directed, put ice on the affected area. To do this: ? Put ice in a plastic bag. ? Place a towel between your skin and the bag. ? Leave the ice on for 20 minutes, 2?3 times a day. ? Remove the ice if your skin turns bright red. This is very important. If you cannot feel pain, heat, or cold, you have a greater risk of damage to the area. ? If directed, apply heat to the affected area as often as told by your health care provider. Use the heat source that your health care provider recommends, such as a moist heat pack or a heating pad. ? Place a towel between your skin and the heat source. ? Leave the heat on for 20?30 minutes. ? Remove the heat if your skin turns bright red. This is especially important if you are unable to feel pain, heat, or cold. You have a greater risk of getting burned. ? Take zmrm-rha-qtubkjl and prescription medicines only as told by your health care provider. General instructions ? Sleep on a firm mattress in a comfortable position. Try lying on your side with your knees slightly bent. If you lie on your back, put a pillow under your knees. ? Ask your health care provider if t (more content not included)... [facility] Ambulatory Visit Summaryon 1 11-07-2022 Ambulatory Visit Summary JOSE ROCHA :1940 Visit Date:09/06/2023 Ambulatory Visit Instructions Your Diagnosis Cellulitis of left lower extremity BMI 27.0-27.9,adult These Are Your Goals Hypertension: Maintain blood pressure in therapeutic range - Progressing Interventions: Maintain an active lifestyle - Progressing Monitor Sodium intake - Progressing Monitor blood pressure daily - Progressing Review education booklet - Done Take medications as prescribed - Progressing PAF: Avoid complications Interventions: Monitor for symptoms of complication - Progressing Read education material - Done Take Medications as Prescribed - Progressing Neuropathy: Remain free from injury Interventions: Continue podiatry follow ups as scheduled - Progressing Examine lower extremities - Progressing Take medications as prescribed - Progressing Your Care Team Attending Physician - Rasta RAMIREZ, Fidel Garza Primary Care Physician - Jamison TELLEZ DO, FAAFP This Is Your Medications List cephalexin (Keflex 500 mg Cap) Contact prescribing physician if questions or concerns amlodipine (amLODIPine 5 mg Tab) apixaban (Eliquis 5 mg oral tablet) atorvastatin (Lipitor 20 mg Tab) cholecalciferol (Vitamin D3 50 mcg (2000 intl units) oral tablet, chewable) flecainide (flecainide 50 mg Tab) gabapentin (gabapentin 300 mg Cap) losartan (losartan 50 mg Tab) multivitamin with minerals (One A Day Men's Complete) psyllium (Metamucil) tamsulosin (Flomax 0.4 mg Cap) zolpidem (zolpidem 12.5 mg oral ER Tab) Procedures Performed Cardioversion (03/30/2023), Left Total Hip Arthroplasty (02/02/2016), bilateral cataract implants, Carpal tunnel release, Stephany fundoplication, skin cancer removed, stomach surgery, TURP - Transurethral resection of prostate. Discharge Vitals Temperature (Oral) 36.3 ?C Heart Rate (Peripheral) 66 Blood Pressure 104/62 Height 178 cm Height 70 in Weight 86.3 kg Weight 189.86 lb BMI 27.24 What to do next Scheduled Follow-Up Appointments Monday 1:20 PM EST With: Jamison TELLEZ DO, FAAFP Where: [facility] [address] [place] [address]- \.br\ Medications\.br\ What How Much When Why Instructions\.br \ New cephalexin (Keflex 500 mg Cap) 1 Capsules By Mouth Every 8 hours Cellulitis of left lower extremity BMI 27.0-27.9,adult Duration: 7 Days Pickup at [id number]\.br\ Unchanged amlodipine (amLODIPine 5 mg Tab) 1 Tablets By Mouth At bedtime Contact prescribing physician if questions or concerns \.br\ Unchanged apixaban (Eliquis 5 mg oral tablet) 1 Tablets By Mouth 2 times a day Contact prescribing physician if questions or concerns \.br\ Unchanged atorvastatin (Lipitor 20 mg Tab) 1 Tablets By Mouth Once a day (at bedtime) Contact prescribing physician if questions or concerns \.br\ Unchanged cholecalciferol (Vitamin D3 50 mcg (2000 intl units) oral tablet, chewable) 1 Tablets By Mouth Every day Contact prescribing physician if questions or concerns \.br\ Unchanged flecainide (flecainide 50 mg Tab) 1 Tablets By Mouth Every 12 hours Contact prescribing physician if questions or concerns \.br\ Unchanged gabapentin (gabapentin 300 mg Cap) 1 Capsules By Mouth Every day Contact prescribing physician if questions or concerns \.br\ Unchanged losartan (losartan 50 mg Tab) 1 Tablets By Mouth Every day Contact prescribing physician if questions or concerns \.br\ Unchanged multivitamin with minerals (One A Day Men's Complete) By Mouth Every day Contact prescribing physician if questions or concerns \.br\ Unchanged psyllium (Metamucil) By Mouth Contact prescribing physician if questions or concerns \.br\ Unchanged tamsulosin (Flomax 0.4 mg Cap) 1 Capsules By Mouth Every day Contact prescribing physician if questions or concerns \.br\ Unchanged zolpidem (zolpidem 12.5 mg oral ER Tab) 1 Tablets By Mouth Once a day (at bedtime) as needed for for sleep 30 day supply Contact prescribing physician if questions or concerns \.br\ Pharmacy Information\.br\ [id number]: [address] [place], [place] [id number] [phone]\.br\ Allergies\.br\ No Known Allergies\.br\ Problems\.br\ Ongoing - Any problem that you are currently receiving treatment for.\.br\ Axonal sensorimotor neuropathy\.br\ Basal cell carcinoma\.br\ BPH associated with nocturia\.br\ BPH without urinary obstruction\.br\ Cervical radiculitis\.br\ Cervicalgia\.br\ Chronic constipation\.br \ Chronic insomnia\.br\ DDD (degenerative disc disease), cervical\.br\ Dyshidrotic eczema\.br\ Edema of both lower legs due to peripheral venous insufficiency\.b r\ Enthesopathy of right shoulder\.br\ Familial hypercholesterol emia\.br\ Gouty arthritis of right hand\.br\ Hypertension\.br \ Idiopathic small fiber sensory neuropathy\.br\ Leg abrasion\.br\ 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\.br\ Neoplasm of uncertain behavior\.br\ Non-smoker\.br\ Osteoarthritis of both hands\.br\ PAF (paroxysmal atrial fibrillation)\.b r\ Peyronie's disease\.br\ Right shoulder pain\.br\ Screening PSA (prostate specific antigen)\.br\ Seasonal allergies\.br\ Seborrheic keratosis\.br\ Senile ecchymosis\.br\ Syncope\.br\ Tortuous aorta\.br\ Historical - Any problem that you are no longer receiving treatment for.\.br\ Atrial fibrillation\.br \ BMI 25.0-25.9,adult\ .br\ BPH\.br\ Bruise\.br\ Cervical pain\.br\ Cervical stenosis of spine\.br\ Constipation\.br \ Ecchymoses, spontaneous\.br\ Fall as cause of accidental injury at home as place of occurrence\.br\ Fracture in accidental fall\.br\ Head injury without concussion or intracranial hemorrhage\.br\ Hemorrhoids\.br\ Hereditary sensory and autonomic neuropathy\.br\ Indigestion\.br\ Insomnia\.br\ Laceration of leg\.br\ Left leg cellulitis\.br\ Lumbar radiculitis\.br\ Malaise and fatigue\.br\ Musculoskeletal chest pain\.br\ Neck pain\.br\ Obstipation\.br\ Over weight\.br\ Rib pain on left side\.br\ Right knee DJD\.br\ Right wrist pain\.br\ Scalp abrasion\.br\ Skin cancer\.br\ Skin tear of upper extremity\.br\ Sleep apnea\.br\ Sore throat\.br\ Sternal fracture\.br\ Tic douloureux\.br\ Tingling\.br\ Trigeminal neuralgia\.br\ Urinary retention\.br\ Patient Survey\.br\ You may receive a survey via text or e-mail asking about your office visit. Please share your experience with us by completing your survey. We appreciate your feedback and thank you for choosing us for your care.\.br\ \.br\ [facility] Family Medicine Office/Clini c Noteon 09-06-2023 Family Medicine Office/Clinic Note Chief Complaint Current pt infected wound on left kendall HPI Staff Jose, 82 yo male here today with infected wound Pt has had wound since 4 days ago- bringing decorations in and fell on step Wound is on left kendall, redness around wound, warm to touch Pt has been keeping it clean and bandage Pt is on bloodthinner History of Present Illness I have reviewed and verified the staff HPI to be accurate for this encounter. Portions of this record have been created with voice recognition software. Occasional wrong-word or ?dfdaz-i-mmud? substitutions may have occurred due to the inherent limitations of voice recognition software. 82 yo male with hx of HTN presents today with cc of possible infected cut. Patient states he has a wound on the left anterior kendall. Patient states he was [place] [employer] [place] and [place] states it is only about 1 step up into the house. States he is unsure how he tripped but he states he did fall. He denies any head injury or loss of consciousness he does take Eliquis for history of syncopal episode in which they are treating him for prevention of stroke. Patient denies any other injuries but states he had a scrape to left anterior kendall and states he has been cleaning it over the past several days but states he had an outpatient EMG scheduled in which they ended up canceling as he had concern for infected wound on the left anterior kendall. He denies any pain or discomfort but does note redness around the area of scrape in addition to warmth to the touch. He denies any history of cellulitis and denies any history of diabetes. He denies any fever or chills in the last several days and denies any weakness numbness or tingling of the lower extremities. He has no other concerns at this time. Review of Systems PHQ Score Initial Depression Screen Score: 0 SCORE ROS negative unless otherwise stated in HPI. Physical Exam Vitals & Measurements T: 36.3 ?C(Oral) HR: 66(Peripheral) BP: 104/62 SpO2: 98% HT: 70 in HT: 178 cm WT: 86.3 kg WT: 189.86 lb BMI: 27.24 General: Pleasant elderly male, no acute distress Eyes: not assessed Ears: not assessed Nose: not addressed Mouth: not assessed Neck: not assessed Lungs: Lung sounds are clear bilaterally. No wheezing rhonchi or crackles on exam. Cardio: S1, S2, regular rhythm. No murmurs gallops or rubs. Abdomen: not assessed Extremity: Patient walked back into convenient care on his own without gait abnormality. Patient has an abrasion to the left anterior kendall which measures approximately 4 cm in length this is superficial in depth. There is surrounding erythema and this is warm to the touch however not tender or painful with palpation around the area. Erythema extends about 3 inches in diameter around the area of abrasion there is no red streaking and redness does not spread down near the ankle. Patient has strong pedal and posterior tibialis pulses bilaterally no lower extremity edema no pedal edema no calf tenderness and negative Homans' sign bilaterally. No deformities or crepitus. No focal deficits. Patient is neurovascularly intact. Neurologic: not assessed Skin: See extremity note in regards to description of abrasion and concern for left lower extremity cellulitis. Mental Status: Alert and oriented x3. Normal mood and affect Assessment/Plan 1. Cellulitis of left lower extremity (L03.116: Cellulitis of left lower limb) Please follow-up with your primary care provider in 3 to 5 days. Please contact their office to schedule follow-up appointment for reevaluation of the left lower extremity cellulitis. You were seen and evaluated for a possible infected cut in which it does appear to be infected around the area of abrasion of the left anterior kendall. You were treated today with Keflex, antibiotic 3 times daily x 7 days in duration continue to rest ice and elevate the left lower extremity as needed for discomfort and swelling which will also help with cellulitis. Follow-up closely and return if needed. Seek ER for reevaluation if you notice any red streaking fever chills or for any other worsening or concerning symptoms. Ordered: cephalexin, 500 mg = 1 cap(s), Oral, q8hr, X 7 day(s), # 21 cap(s), Refills(s) 0, Pharmacy: [id number], 178, cm, 09/06/23 14:19:00 EST, Height/Length Dosing, 86.3, kg, 09/06/23 14:19:00 EST, Weight Dosing 2. BMI 27.0-27.9,adult (Z68.27: Body mass index [BMI] 27.0-27.9, adult) The standard range for ages 18 and older is >=18.5 and < 25 kg/m2. Your BMI today was above this range, this falls in the overweight to obese category and there are medical benefits to weight loss. We can offer counselling, referral, and/or medical support in addressing this problem. Your BMI and weight management will be followed at subsequent visits. Ordered: cephalexin, 500 mg = 1 cap(s), Oral, q8hr, X 7 day(s), # 21 cap(s), Refills(s) 0, Pharmacy: [id number], 178, cm, 09/06/23 14:19:00 EST, Height/Length Dosing, 86.3, kg, (more content not included)... [facility] Comment on above: Result Comment: Elec tronically Signed By: Rasta RAMIREZ, Fidel Garza\.br\Date and Time Signed: 09/06/23 15:18 EST Patient Educationon 09-06-20 Patient Education Infectious Disease Cellulitis, Adult Cellulitis is a skin infection. The infected area is often warm, red, swollen, and sore. It occurs most often in the arms and lower legs. It is very important to get treated for this condition. What are the causes? This condition is caused by bacteria. The bacteria enter through a break in the skin, such as a cut, burn, insect bite, open sore, or crack. What increases the risk? This condition is more likely to occur in people who: ? Have a weak body defense system (immune system). ? Have open cuts, garcia, bites, or scrapes on the skin. ? Are older than 60 years of age. ? Have a blood sugar problem (diabetes). ? Have a long-lasting (chronic) liver disease (cirrhosis) or kidney disease. ? Are very overweight (obese). ? Have a skin problem, such as: ? Itchy rash (eczema). ? Slow movement of blood in the veins (venous stasis). ? Fluid buildup below the skin (edema). ? Have been treated with high-energy rays (radiation). ? Use IV drugs. What are the signs or symptoms? Symptoms of this condition include: ? Skin that is: ? Red. ? Streaking. ? Spotting. ? Swollen. ? Sore or painful when you touch it. ? Warm. ? A fever. ? Chills. ? Blisters. How is this diagnosed? This condition is diagnosed based on: ? Medical history. ? Physical exam. ? Blood tests. ? Imaging tests. How is this treated? Treatment for this condition may include: ? Medicines to treat infections or allergies. ? Home care, such as: ? Rest. ? Placing cold or warm cloths (compresses) on the skin. ? Hospital care, if the condition is very bad. Follow these instructions at home: Medicines ? Take iuek-[id number] and prescription medicines only as told by your doctor. ? If you were prescribed an antibiotic medicine, take it as told by your doctor. Do not stop taking it even if you start to feel better. General instructions ? Drink enough fluid to keep your pee (urine) pale yellow. ? Do not touch or rub the infected area. ? Raise (elevate) the infected area above the level of your heart while you are sitting or lying down. ? Place cold or warm cloths on the area as told by your doctor. ? Keep all follow-up visits as told by your doctor. This is important. Contact a doctor if: ? You have a fever. ? You do not start to get better after 1?2 days of treatment. ? Your bone or joint under the infected area starts to hurt after the skin has healed. ? Your infection comes back. This can happen in the same area or another area. ? You have a swollen bump in the area. ? You have new symptoms. ? You feel ill and have muscle aches and pains. Get help right away if: ? Your symptoms get worse. ? You feel very sleepy. ? You throw up (vomit) or have watery poop (diarrhea) for a long time. ? You see red streaks coming from the area. ? Your red area gets larger. ? Your red area turns dark in color. These symptoms may represent a serious problem that is an emergency. Do not wait to see if the symptoms will go away. Get medical help right away. Call your local emergency services (911 in the [place] Do not drive yourself to the hospital. Summary ? Cellulitis is a skin infection. The area is often warm, red, swollen, and sore. ? This condition is treated with medicines, rest, and cold and warm cloths. ? Take all medicines only as told by your doctor. ? Tell your doctor if symptoms do not start to get better after 1?2 days of treatment. This information is not intended to replace advice given to you by your health care provider. Make sure you discuss any questions you have with your health care provider. Document Revised: 06/30/2022 Document Reviewed: 06/30/2022 [employer] Patient Education ? 2022 [employer]. Nutrition BMI for Adults What is BMI? Body mass index (BMI) is a number that is calculated from a person's weight and height. BMI can help estimate how much of a person's weight is composed of fat. BMI does not measure body fat directly. Rather, it is an alternative to procedures that directly measure body fat, which can be difficult and expensive. BMI can help identify people who may be at higher risk for certain medical problems. What are BMI measurements used for? BMI is used as a screening tool to identify possible weight problems. It helps determine whether a person is obese, overweight, a healthy weight, or underweight. BMI is useful for: ? Identifying a weight problem that may be related to a medical condition or may increase the risk for medical problems. ? Promoting changes, such as changes in diet and exercise, to help reach a healthy weight. BMI screening can be repeated to see if these changes are working. How is BMI calculated? BMI involves measuring your weight in relation to your height. Both height and weight are measured, and the BMI is calculated from those numbers. This can (more content not included)... [facility] Healthon 08-17-20 Population Health Case Information Case Priority: None Programs: -- Referral Source: [employer] Referral Reason: Care coordination Case Type: Chronic Care Management Risk Score: -- Case Status: Active (June 23, 2022) Date Assigned: June 16, 2022 Assigned By: Jossy Francis RN Date Enrolled: June 23, 2022 Assigned Primary Personnel: Jossy Francis RN Assigned Secondary Personnel: -- Case Physician: Jamison TELLEZ DO, FAAFP Problems Ongoing Axonal sensorimotor neuropathy Basal cell carcinoma BPH associated with nocturia BPH without urinary obstruction Cervical radiculitis Cervicalgia Chronic constipation Chronic insomnia DDD (degenerative disc disease), cervical Dyshidrotic eczema Edema of both lower legs due to peripheral venous insufficiency Enthesopathy of right shoulder Familial hypercholesterolemia Gouty arthritis of right hand Hypertension Idiopathic small fiber sensory neuropathy Leg abrasion 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 Non-smoker Osteoarthritis of both hands PAF (paroxysmal atrial fibrillation) Peyronie's disease Right shoulder pain Screening PSA (prostate specific antigen) Seasonal allergies Seborrheic keratosis Senile ecchymosis Syncope Tortuous aorta Historical Atrial fibrillation BMI 25.0-25.9,adult BPH Bruise Cervical pain Cervical stenosis of spine Constipation Ecchymoses, spontaneous Fall as cause of accidental injury at home as place of occurrence Fracture in accidental fall Head injury without concussion or intracranial hemorrhage Hemorrhoids Hereditary sensory and autonomic neuropathy Indigestion Insomnia Laceration of leg Left leg cellulitis Lumbar radiculitis Malaise and fatigue Musculoskeletal chest pain Neck pain Obstipation Over weight Rib pain on left side Right knee DJD Right wrist pain Scalp abrasion Skin cancer Skin tear of upper extremity Sleep apnea Sore throat Sternal fracture Tic douloureux Tingling Trigeminal neuralgia Urinary retention Procedure/Surgical History Cardioversion (03/30/2023), Left Total Hip Arthroplasty (02/02/2016), bilateral cataract implants, Carpal tunnel release, Stephany fundoplication, skin cancer removed, stomach surgery, TURP - Transurethral resection of prostate. Home Medications amLODIPine 5 mg Tab, 5 mg= 1 tab(s), Oral, Bedtime Eliquis 5 mg oral tablet, 5 mg= 1 tab(s), Oral, BID flecainide 50 mg Tab, 50 mg= 1 tab(s), Oral, q12hr Flomax 0.4 mg Cap, 0.4 mg= 1 cap(s), Oral, Daily, 3 refills gabapentin 300 mg Cap, 300 mg= 1 cap(s), Oral, Daily Lipitor 20 mg Tab, 20 mg= 1 tab(s), Oral, Once a day (at bedtime), 3 refills Metamucil, Oral One A Day Men's Complete, Oral, Daily Vitamin D3 50 mcg (2000 intl units) oral tablet, chewable, 50 mcg= 1 tab(s), Oral, Daily zolpidem 12.5 mg oral ER Tab, 12.5 mg= 1 tab(s), Oral, Once a day (at bedtime), PRN, 5 refills Allergies No Known Allergies Social History Alcohol - Denies Alcohol Use, 07/12/2012 Substance Abuse - Denies Substance Abuse, 07/12/2012 Tobacco - Denies Tobacco Use, 07/12/2012 Never (less than 100 in lifetime) Tobacco Use:. Never Smokeless Tobacco Use:., 07/12/2023 Family History Acute myocardial infarction: Father. Alzheimer's disease: Sister. Kidney disease: Mother. Screenings and Assessments 07/11/22 13:04:00 Result Name Value Comment Phone Call Monitoring Consent Agreed to continue call Phone Verification Patient Information Full name, street address and date of verified CM Program Enrollment Provides verbal consent for enrollment CCM Program Enrollment Verbally agreed to receive [facility] services CCM Written Consent Written consent obtained CCM Verbal Consent By Self 06/23/22 11:00:00 Result Name Value Comment HIPPA Verified Type of Contact Telephone Information Given by Self CM Preferred Spoken Language Georgian CM Preferred Written Language Georgian Preferred Communication Mode Verbal Ability to Read/Write Able to read, Able to write Appointment Reminders Phone Preferred Way to Send PHI Standard mail Able to Read Georgian Able to read Georgian Learning Style Pref Patient Printed materials Teaching Method Printed materials Barriers to Learning None evident Best Time to Visit or Contact 1-5 pm Best Day to Visit or Contact No preference Response to Current Year Correct Cognitive Deficit No [facility] Test Score Indication None or no significant cognitive impairment Response to Current Month Correct Response to Current Time Correct Count Backwar (more content not included)... [facility] Office Visit (Cardiology)on 06-29-2023 Follow-up visit Diagnoses/Problems Assessed Essential hypertension, benign (401.1) (I10) Syncope and collapse (780.2) (R55) Supraventricular tachycardia (427.89) (I47.1) Persistent atrial fibrillation (427.31) (I48.19) Anticoagulated (V58.61) (Z79.01) High risk medications (not anticoagulants) long-term use (V58.69) (Z79.899) Overweight with body mass index (BMI) of 26 to 26.9 in adult (278.02,V85.22) (E66.3,Z68.26) Never a smoker Orders Essential hypertension, benign Start: Losartan Potassium 50 MG Oral Tablet; TAKE 1 TABLET DAILY Overweight with body mass index (BMI) of 26 to 26.9 in adult Healthy Weight Tips; Status:Complete; Done: [id number] Some eating tips that can help you lose weight.; Status:Complete; Done: [id number] Persistent atrial fibrillation Renew: Eliquis 5 MG Oral Tablet; TAKE 1 TABLET Every twelve hours IO EKG Electrocardiogram- 12 Lead; Status:Complete; Done: [id number] Renew: Flecainide Acetate 50 MG Oral Tablet; Take 1 tablet every 12 hours SocHx: Never a smoker Tobacco Use Screening; Status:Complete; Done: [id number] Patient Instructions Please bring all medicines, vitamins, and herbal supplements with you when you come to the office. Prescriptions will not be filled unless you are compliant with your follow up appointments or have a follow up appointment scheduled as per instruction of your physician. Refills should be requested at the time of your visit. Patient provided Falls Prevention education sheet. STOP amlodipine START losartan 50 mg once daily. Follow up in 6-9 months Chief Complaint JOSE ROCHA is being seen for Follow up testing. History of Present Illness Returns in follow-up of problems as noted. He is done well. When last seen by nurse practitioner he had complaints suggestive of coronary disease and because of this a stress test was ordered. It proved normal and because of this the likelihood of coronary disease appears to be very low. He has had no recurrent SVT symptomatology and his atrial fibrillation appears to be well-tolerated without any syncope or near syncope palpitation or other complaints. Blood pressure and lipids appear to be adequately managed and he is tolerating anticoagulant therapy well without complaint. As before we did advocate the merits of diet and weight loss. Surgical History Problems History of Cardiac catheterization History of Cardioversion History of Cholecystectomy History of Complete colonoscopy History of Knee surgery Current Meds Medication NameInstruction amLODIPine Besylate 5 MG Oral TabletTake 1 tablet daily Atorvastatin Calcium 20 MG Oral TabletTAKE 1 TABLET AT BEDTIME. Eliquis 5 MG Oral TabletTAKE 1 TABLET Every twelve hours Flecainide Acetate 50 MG Oral TabletTake 1 tablet every 12 hours Multi Vitamin Oral TabletTAKE 1 TABLET DAILY. Vitamin D (Cholecalciferol) 50 MCG (1999 [place]) Oral CapsuleTAKE 1 CAPSULE Daily Allergies Medication No Known Drug Allergies Recorded By: Ani Dean; 10/22/2021 11:35:53 AM Social History Problems Caffeine use (V49.89) (Z78.9) decaf Never a smoker No alcohol use No illicit drug use Review of Systems Constitutional: not feeling tired. Eyes: no eyesight problems. ENT: no hearing loss and no nosebleeds. Cardiovascular: no intermittent leg claudication and as noted in HPI. Respiratory: no chronic cough and no shortness of breath. Gastrointestinal: no change in bowel habits and no blood in stools. Genitourinary: no urinary frequency and no hematuria. Skin: no skin rashes. Neurological: no seizures and no frequent falls. Psychiatric: no depression and not suicidal. All other systems have been reviewed and are negative for complaint. Vitals Vital Signs Recorded: [id number] 11:46AM Heart Rate76, Apical Wtlizhkr882, LUE, Sitting Bnlxjutlx94, LUE, Sitting Height5 ft 10 in Ladfpk502 lb BMI Hnwbtvqtab17.83 kg/m2 BSA Calculated2.03 Tobacco Useb) No Falls Screening (Age 18+)b) One or more falls in the last year EKG COMPLETED IN OFFICE Physical Exam Constitutional: alert and in no acute distress. Eyes: no erythema, swelling or discharge from the eye . Neck: neck is supple, symmetric, trachea midline, no masses and no thyromegaly . Pulmonary: no increased work of breathing or signs of respiratory distress and lungs clear to auscultation. Cardiovascular: carotid pulses 2+ bilaterally with no bruit , JVP was normal, no thrills , regular rhythm, normal S1 and S2, no murmurs , pedal pulses 2+ bilaterally and no edema . Abdomen: abdomen non-tender, no masses and no hepatomegaly . Skin: skin warm and dry, normal skin turgor . Psychiatric judgment and insight is normal and oriented to person, place and time . Signatures Electronically signed by : Atilio Evans MD; Jun 30 2023 11:42AM EST (Author) Normal [employer] Tobacco Screening.on 023 Fall risk assessment b) One or more falls in the last year [facility] [employer] 600 DO Work Phone: Tobacco use status CPHS b) No [facility] 600 DO Work Phone: CHEMISTRYOrdered By: SYSTEM SYSTEM on 06-26-2023 Anion gap [Moles/Vol] 11 mmol/L Normal 6 - 16 mEq/L [facility] Remisol Calcium [Mass/Vol] 9.6 mg/dL Normal 8.9 - 11.1 mg/dL [facility] Remisol Chloride [Moles/Vol] 107 mmol/L Normal 101 - 111 mmol/L [facility] Remisol CO2 [Moles/Vol] 26 mmol/L Normal 21 - 31 mmol/L [facility] Remisol Creatinine [Mass/Vol] 0.7 mg/dL Normal 0.5 - 1.3 mg/dL [facility] Remisol GFR/1.73 sq M.predicted among non-blacks MDRD (S/P/Bld) [Vol rate/Area] 91 mL/min/1.73 m2 Normal >=59mL/min/1.73 m2 [facility] Chem S Glucose [Mass/Vol] 94 mg/dL Normal 55 - 199 mg/dL FT Remisol Potassium [Moles/Vol] 4.2 mmol/L Normal 3.5 - 5.3 mmol/L [facility] Remisol Sodium [Moles/Vol] 140 mmol/L Normal 135 - 145 mmol/L [facility] Remisol Urea nitrogen [Mass/Vol] 9 mg/dL Normal 5 - 21 mg/dL [facility] Remisol Urea nitrogen/Creatinine [Mass ratio] 13 mg/mg Normal 10 - 20 FT Remisol HEMATOLOGYOrdered By: SYSTEM SYSTEM on 06-26-2023 Basophils/100 WBC (Bld) 0.6 % Normal 0.0 - 2.0 % [facility] Basophils/Leukocyte s Auto (Bld) [Pure # fraction] 0.1 E9/L Normal 0.0 - 0.2 E9/L [facility] Eosinophils/100 WBC (Bld) 1.2 % Normal 0.0 - 8.0 % [facility] Eosinophils/Leukocy laquita Auto (Bld) [Pure # fraction] 0.1 E9/L Normal 0.0 - 0.5 E9/L [facility] Lymphocytes/100 WBC (Bld) 14.2 % Normal 14.0 - 50.0 % [facility]Auto[facility] Lymphocytes/Leukocy laquita Auto (Bld) [Pure # fraction] 1.3 E9/L Normal 1.0 - 4.0 E9/L [facility] Monocytes/100 WBC (Bld) 10.4 % Normal 4.0 - 14.0 % [facility] Monocytes/Leukocyte s Auto (Bld) [Pure # fraction] 0.9 E9/L Normal 0.2 - 1.0 E9/L [facility] Neutrophils/100 WBC (Bld) 73.6 % Normal 36.0 - 75.0 % [facility] Neutrophils/Leukocy laquita Auto (Bld) [Pure # fraction] 6.6 E9/L Normal 2.0 - 7.5 E9/L [facility] HEMATOLOGYOrdered By: Lv Calderon on 06-26-2023 Erythrocyte distribution width (RBC) [Ratio] 13.7 % Normal 10.9 - 14.2 % [facility] Hematocrit (Bld) [Volume fraction] 41.2 % Normal 37.7 - 49.0 % [facility] Hemoglobin (Bld) [Mass/Vol] 13.9 g/dL Normal 13.5 - 17.5 gm/dL [facility] MCH (RBC) [Entitic mass] 31.3 pg Normal 27.0 - 34.0 pg [facility] MCHC (RBC) [Mass/Vol] 33.8 g/dL Normal 31.4 - 36.0 gm/dL [facility] MCV (RBC) [Entitic vol] 92.6 fL Normal 80.0 - 100.0 fL [facility] Platelet mean volume (Bld) [Entitic vol] 6.6 fL Normal 6.4 - 10.8 fL [facility] Platelets (Bld) [#/Vol] 238.0 E9/L Normal 150.0 - 500.0 E9/L [facility] RBC (Bld) [#/Vol] 4.4 E12/L Normal 4.3 - 5.9 E12/L [facility] HemeAutoSS WBC corrected for nucl RBC Auto (Bld) [#/Vol] 9.0 E9/L Normal 4.0 - 11.0 E9/L [facility] HemeAutoSS Cardiovasc Arrhythmia Result son 05-10-2023 Cardiovasc Arrhythmia Results Reason For Visit Event Monitor: JOSE is here for the application of a 30 day event monitor in office., Diagnosis: SYNCOPE HIGH RISK MED Ordering Physician: Dr. Atilio Evans MD Enrollment sent to: [employer] Monitor number [id number] applied. CY printed and placed on Dr. Atilio Evans MD desk to dictate. Diagnosis/Problems Assessed Syncope and collapse (780.2) (R55) High risk medications (not anticoagulants) long-term use (V58.69) (Z79.899) Patient Discussion/Summary Patient underwent 30-day event monitoring for a history and/or complaints of syncope and collapse. The following observations are made: 1. Rhythm is sinus with heart rates ranging between 49 and 104 bpm. There were no extremes of tachycardia or bradycardia nor any pauses. 2. There were 11 patient triggered events. 2 were associated with sinus mechanism rate 57 to 77 bpm. The remaining 9 patient triggered events were associated with sinus rhythm with occasional PACs or PVCs. There were no complex arrhythmias. 3. There were 5 automatically triggered events. There were associated with sinus rhythm, sinus bradycardia, occasional PACs and PVCs, and 1 run of ventricular trigeminy. There were no arrhythmias noted that would explain the patient's history of syncope and collapse. Future Appointments Date/TimeProviderSpecia ltySite 06/29/2023 11:50 Atilio Kirkland [id number] 600 DO Signatures Electronically signed by : Atilio Evans MD; Jul 06 2023 12:04PM EST (Author) Normal [employer] [facility] CARDIAC STRESS/REST INJE CTIONon 05-01-2023 [facility] CARDIAC STRESS/REST INJECTION Patient Name: JOSE ROCHA STUDY: MYOCARDIAL PERFUSION STRESS TEST WITH LEXISCAN Performing facility: [facility], [address] [place] [address], [address], [place] [address] [facility] Provider: Ej rGeen RN, [employer] PCP: Dr. Oscar Tellez Supervising provider: Carmen Turner MD, [facility] INDICATION: Chest Pain; HTN A-fib HISTORY: Gender: M; Age: 82 y/o ; Height: 177.8 cm; Weight: 83.988529 kg. High Cholesterol; HTN; Arrhythmias; Chest Pain; Syncope; Denies smoking. Cardiac catheterization on 1993. COMPARISON: Previous nuclear testing completed [id number] at [facility]. ACCESSION NUMBER(S): [id number]; [id number]; [id number] ORDERING CLINICIAN: EJ GREEN TECHNIQUE: ONE DAY protocol. Stress injection: Date:05-01-23, 35.1 mCi of Myoview IV 20 seconds after rapid injection of Lexiscan. Rest injection: Date: 05-01-23, 11.2 mCi of Myoview IV at rest. The patient had a rapid injection of 0.4 mg of Lexiscan IV over 10 seconds. Imaging was performed by gated tomographic technique. Reason for Lexiscan: dizziness/unsteady/fall risk STRESS TEST DATA: Resting heart rate was 62 BPM. Resting blood pressure was 134/76 mmHg. Peak blood pressure was 132/72 mmHg. Peak heart rate was 88 BPM. TEST TERMINATED DUE TO: Protocol completed FINDINGS: STRESS TEST RESULTS: Resting electrocardiogram revealed sinus rhythm with first-degree AV block and isolated PVC. There were no significant ischemic ECG changes or dysrhythmias. The patient did not have chest pains/symptoms during procedure. There was a normal recovery phase. IMAGING RESULTS: Image quality was suboptimal due to motion artifact. Rest and stress tomographic images were reviewed and revealed normal perfusion. There was no evidence of perfusion abnormality consistent with ischemia. There was evidence of moderate-sized fixed perfusion abnormality involving the inferior and inferoapical segments with preserved wall thickening suggestive of attenuation artifact, myocardial infarction in this anatomical distribution is unlikely. There was no left ventricular dilatation with stress. Overall left ventricular systolic function appeared to be normal. There was no regional wall motion abnormalities . LVEF was 54%. TID is 0.86 and is normal. There was evidence of diaphragmatic attenuation artifact. IMPRESSION: Normal Lexiscan Myoview cardiac perfusion stress test. No evidence of ischemia or myocardial infarction by perfusion imaging. Normal left ventricular systolic function, ejection fraction 54%. Diaphragmatic attenuation artifact When compared to a study from 2019, the attenuation artifact was not reported previously. Electronically signed by: CARMEN TURNER MD Normal [facility] No Panel Informationon 05-01 Normal -[facility] 250 DO Work Phone: Office Visit (Cardiology)on 04-27-2023 Follow-up visit Diagnoses/Problems Assessed Persistent atrial fibrillation (427.31) (I48.19) Anticoagulated (V58.61) (Z79.01) Essential hypertension, benign (401.1) (I10) Chest pain (786.50) (R07.9) Syncope and collapse (780.2) (R55) High risk medications (not anticoagulants) long-term use (V58.69) (Z79.899) Overweight with body mass index (BMI) of 26 to 26.9 in adult (278.02,V85.22) (E66.3,Z68.26) Orders Chest pain, Essential hypertension, benign, Persistent atrial fibrillation NM Cardiac Stress/Rest Nuclear Med Order; Status:Hold For - Scheduling; Requested for:[id number]; Radiologist to Determine Optimal Study : Y What are the patient's signs and symptoms? : chest pain, syncope High risk medications (not anticoagulants) long-term use, Persistent atrial fibrillation, Syncope and collapse IO Event Monitor 30 days; Status:Active - Perform Order; Requested for:[id number]; Overweight with body mass index (BMI) of 26 to 26.9 in adult Healthy Weight Tips; Status:Complete; Done: [id number] Patient Instructions Please bring all medicines, vitamins, and herbal supplements with you when you come to the office. Prescriptions will not be filled unless you are compliant with your follow up appointments or have a follow up appointment scheduled as per instruction of your physician. Refills should be requested at the time of your visit. PLAN: Through informed decision making process incorporating patients unique circumstances, the following treatment plan will be initiated: 1. Prescription drug management of cardiovascular medication for efficacy, adherence to treatment, side effect assessment and polypharmacy. Current treatment clinically warranted and to continue without modifications. 2. Lexiscan MPI (chest pain, high risk med use) no treadmill due to age, abnormal ECG 3. CY (syncope, high risk med use) 4. Return for follow-up; in the interim, contact the office if new symptoms arise. Dr. Evans after testing Chief Complaint Hospital f/u: 'doing good' JOSE ROCHA is being seen for follow-up of a hospitalization for syncope. He presents to the office ambulatory with steady gait. Last evaluated in clinic Dr. Alcaraz March 2023. At that time dose of flecainide was increased to 150 mg twice daily. March 30, 2023 uneventful cardioversion with muslim of normal sinus rhythm. March 31, 2023 presented to [facility] due to syncopal episode. Seen in consultation by Dr. Turner. Echocardiogram was unremarkable. Dose of flecainide reduced to 50 mg twice daily. Patient reports that he does not remember the syncopal episode. reports that he was going to bed and she simply heard a thud . The patient says he has no memory of the event, the ambulance ride or the night in the hospital -reports he simply woke up at 11 AM and had no idea what had happened. Presents today where he simply feels a little tired . Denies any dizziness or lightheadedness. 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 He symptoms reports a little pain beneath his left breast but is not clearly exertional in nature. He denies any palpitations. No orthopnea or PND. EKG in office sinus rhythm at 66 with PVC, first-degree AV block. QRS 100. 1993 cardiac cath with angiographically normal coronaries. March 2023 echo LVEF 60 to 65%, left atrium mildly dilated, MR mild. CHADS VASc 3 full dose Eliquis age 82, creatinine 0.7, weight 185 [place] [facility] [place] was recommended at discharge and will arrange. Otherwise, due to PVCs, atypical chest pain and high risk med use will complete Lexiscan perfusion study. He will follow-up with Dr. Alcaraz after testing. History of Present Illness The patient states he has been generally doing well since the last visit. Comorbid Illnesses: hypertension. Symptoms: stable chest pain at rest, denies exertional chest pain, denies dyspnea, stable fatigue, denies exercise intolerance, denies palpitations, denies edema, denies orthopnea, denies dizziness and denies orthostatic dizziness. Associated symptoms: no syncope. His symptoms do not limit his activities. Disease Monitoring: The patient has had a stable weight. Medications: the patient is adherent with his medication regimen. He denies medication side effects. Surgical History Problems History of Cardiac catheterization History of Cardioversion History of Cholecystectomy History of Complete colonoscopy History of Knee surgery Current Meds Medication NameInstruction amLODIPine Besylate 5 MG Oral TabletTake 1 tablet daily Atorvastatin Calcium 20 MG Oral TabletTAKE 1 TABLET AT BEDTIME. Eliquis 5 MG Oral TabletTAKE 1 TABLET Every twelve hours Flecainide Acetate 50 MG Oral TabletTake 1 tablet every 12 hours Allergies Medication No Known Drug Allergies Recorded By: Ani Dean; 10/22/2021 11:35:53 AM Social History Problems Caffeine use (V49.89) (Z78.9) decaf Never a smoker No alcohol use No illicit drug use (more content not included)... Normal [employer] Tobacco Screening.on 023 Adult depression screening assessment [facility] [email or web address] [facility] Work Phone: Fall risk assessment a) No falls within the last year [facility] [email or web address] DO Work Phone: Tobacco use status CPHS b) No [facility] [email or web address] DO Work Phone: CHEMISTRYOrdered By: SYSTEM SYSTEM on 04-02-2023 Albumin [Mass/Vol] 4.4 g/dL Normal 3.3 - 5.0 gm/dL [facility] Remisol Albumin/Globulin [Mass ratio] 1.5 {ratio} Normal 1.1 - 2.2 [facility] Remisol ALP [Catalytic activity/Vol] 78 [iU]/d Normal 21 - 98 Int._Unit/L [facility] Rem[facility] ALT No additional P-5'-P [Catalytic activity/Vol] 16 [iU]/d Normal 6 - 46 Int._Unit/L [facility] Anion gap [Moles/Vol] 10 mmol/L Normal 6 - 16 mEq/L [facility] AST [Catalytic activity/Vol] 20 [iU]/d Normal 5 - 43 Int._Unit/L [facility] Bilirubin [Mass/Vol] 0.9 mg/dL Normal 0.0 - 1.1 mg/dL [facility] Bilirubin.direct [Mass/Vol] 0.1 mg/dL Normal 0.1 - 0.4 mg/dL [facility] Remisol Bilirubin.indirect [Mass or moles/Vol] 0.8 mg/dL Normal 0.1 - 0.9 mg/dL [facility] Remisol Calcium [Mass/Vol] 9.5 mg/dL Normal 8.9 - 11.1 mg/dL [facility] Chloride [Moles/Vol] 105 mmol/L Normal 101 - 111 mmol/L [facility] Rem[facility] CO2 [Moles/Vol] 28 mmol/L Normal 21 - 31 mmol/L [facility] Remisol Creatinine [Mass/Vol] 0.7 mg/dL Normal 0.5 - 1.3 mg/dL [facility] Remisol GFR/1.73 sq M.predicted among non-blacks MDRD (S/P/Bld) [Vol rate/Area] 91 mL/min/1.73 m2 Normal >=59mL/min/1.73 m2 [facility] Chem S Globulin (S) [Mass/Vol] 3.0 g/dL Normal 1.4 - 4.0 gm/dL [facility] Glucose [Mass/Vol] 115 mg/dL Normal 55 - 199 mg/dL [facility] Magnesium [Mass/Vol] 2.1 mg/dL Normal 1.3 - 2.4 mg/dL [facility] Potassium [Moles/Vol] 4.1 mmol/L Normal 3.5 - 5.3 mmol/L [facility] Protein [Mass/Vol] 7.4 g/dL Normal 6.0 - 7.8 gm/dL [facility] Remisol Sodium [Moles/Vol] 139 mmol/L Normal 135 - 145 mmol/L [facility] Troponin I.cardiac [Mass/Vol] 5.50 pg/mL Low 15.90 - 38.40 pg/mL [facility] Urea nitrogen [Mass/Vol] 15 mg/dL Normal 5 - 21 mg/dL [facility] Urea nitrogen/Creatinine [Mass ratio] 21 mg/mg High 10 - 20 [facility] COAGULATIONOrdered By: Gaby Urrutia on 04-02-2023 aPTT Coag (PPP) [Time] 38.3 s High 25.1 - 36.5 second(s) [facility] Auto Coag INR Coag (PPP) [Relative time] 1.3 {INR} Invalid Interpretation Code [facility] Auto Coag PT Coag (PPP) [Time] 14.2 s High 9.4 - 12.5 second(s) [facility] Auto Coag HEMATOLOGYOrdered By: Del[employer]ux SYSTEM on 04-02-2023 Basophils/100 WBC (Bld) 0.6 % Normal 0.0 - 2.0 % [facility] Basophils/Leukocyte s Auto (Bld) [Pure # fraction] 0.1 E9/L Normal 0.0 - 0.2 E9/L [facility] Eosinophils/100 WBC (Bld) 1.3 % Normal 0.0 - 8.0 % [facility] Eosinophils/Leukocy laquita Auto (Bld) [Pure # fraction] 0.1 E9/L Normal 0.0 - 0.5 E9/L [facility] Lymphocytes/100 WBC (Bld) 15.7 % Normal 14.0 - 50.0 % [facility] Lymphocytes/Leukocy laquita Auto (Bld) [Pure # fraction] 1.3 E9/L Normal 1.0 - 4.0 E9/L [facility] Monocytes/100 WBC (Bld) 8.9 % Normal 4.0 - 14.0 % [facility] Monocytes/Leukocyte s Auto (Bld) [Pure # fraction] 0.7 E9/L Normal 0.2 - 1.0 E9/L [facility] Neutrophils/100 WBC (Bld) 73.5 % Normal 36.0 - 75.0 % [facility] Neutrophils/Leukocy laquita Auto (Bld) [Pure # fraction] 6.0 E9/L Normal 2.0 - 7.5 E9/L [facility] HEMATOLOGYOrdered By: Glendy Jang on 04-02-2023 Erythrocyte distribution width (RBC) [Ratio] 14.0 % Normal 10.9 - 14.2 % [facility] Hematocrit (Bld) [Volume fraction] 45.3 % Normal 37.7 - 49.0 % [facility] Hemoglobin (Bld) [Mass/Vol] 15.2 g/dL Normal 13.5 - 17.5 gm/dL [facility] MCH (RBC) [Entitic mass] 31.1 pg Normal 27.0 - 34.0 pg [facility] MCHC (RBC) [Mass/Vol] 33.5 g/dL Normal 31.4 - 36.0 gm/dL [facility] MCV (RBC) [Entitic vol] 93.0 fL Normal 80.0 - 100.0 fL [facility]eAuto[facility] Platelet mean volume (Bld) [Entitic vol] 7.7 fL Normal 6.4 - 10.8 fL [facility] HemeAutoSS Platelets (Bld) [#/Vol] 258.0 E9/L Normal 150.0 - 500.0 E9/L [facility]eAutoSS RBC (Bld) [#/Vol] 4.9 E12/L Normal 4.3 - 5.9 E12/L [facility] WBC corrected for nucl RBC Auto (Bld) [#/Vol] 8.1 E9/L Normal 4.0 - 11.0 E9/L [facility] HemeAutoSS Laboratory - Chemistry and C hemistry - challengeon 03-30-2023 CO2 [Moles/Vol] 27 mmol/L Normal 21-31 [facility] [employer] 250 DO Work Phone: No Panel Informationon 03-30 10 {mEq/L} Normal 6-16 [facility] [address] DO Work Phone: 105 mmol/L Normal 101-111 [facility] 250 DO Work Phone: 4.1 mmol/L Normal 3.5-5.3 [facility] 250 DO Work Phone: 138 mmol/L Normal 135-145 [facility] [employer] 250 DO Work Phone: Office Visit (Cardiology)on 03-16-2023 Follow-up visit Diagnoses/Problems Assessed Persistent atrial fibrillation (427.31) (I48.19) Anticoagulated (V58.61) (Z79.01) Essential hypertension, benign (401.1) (I10) Overweight with body mass index (BMI) of 26 to 26.9 in adult (278.02,V85.22) (E66.3,Z68.26) Never a smoker Orders Persistent atrial fibrillation Cardioversion; Status:Active - Retrospective Authorization; Requested for:[id number]; IO EKG Electrocardiogram- 12 Lead; Status:Complete - Retrospective Authorization; Done: 16Mar2023 SocHx: Never a smoker Tobacco Use Screening; Status:Complete; Done: 16Mar2023 Patient Instructions Please bring all medicines, vitamins, and herbal supplements with you when you come to the office. Prescriptions will not be filled unless you are compliant with your follow up appointments or have a follow up appointment scheduled as per instruction of your physician. Refills should be requested at the time of your visit. CARDIOVERSION F/U 4-6 WEEKS WITH WPM Chief Complaint JOSE ROCHA is being seen for a month follow-up of f/u 2 week [facility] 02/25. History of Present Illness Patient returns in follow-up of recent hospitalization. He presented with atrial fibrillation and because of this we intensified his therapy by adding anticoagulant therapy and also increasing flecainide. He is now adequately anticoagulated. He did not convert spontaneously because of this I recommend proceeding to direct-current cardioversion. The reason and rationale for doing so was explained in detail and he understands and agrees to the plan. Review of his records demonstrates that his hypertension is adequately controlled. I did, though, advocate diet and weight loss. Surgical History Problems History of Cardiac catheterization History of Cholecystectomy History of Complete colonoscopy History of Knee surgery Current Meds Medication NameInstruction amLODIPine Besylate 5 MG Oral TabletTake 1 tablet daily Atorvastatin Calcium 20 MG Oral TabletTAKE 1 TABLET AT BEDTIME. Eliquis 5 MG Oral TabletTAKE 1 TABLET Every twelve hours Flecainide Acetate 150 MG Oral TabletTAKE 1 TABLET EVERY 12 HOURS DAILY. Allergies Medication No Known Drug Allergies Recorded By: Ani Dean; 10/22/2021 11:35:53 AM Social History Problems Caffeine use (V49.89) (Z78.9) decaf Never a smoker No alcohol use No illicit drug use Vitals Vital Signs Recorded: 16Mar2023 02:22PM Heart Rate92, Apical Tijwafvg765, LUE, Sitting Eqnbkwyyk40, LUE, Sitting Height5 ft 10 in Xplkmm858 lb BMI Mdbpwehhat84.98 kg/m2 BSA Calculated2.03 Tobacco Useb) No PHQ-2 #1. Over the last 2 weeks have you felt down, depressed or hopeless? (If yes, answer PHQ-9 below)No PHQ-2 #2. Over the last 2 weeks have you felt little interest or pleasure in doing things? (If yes, answer PHQ-9 below)No Falls Screening (Age 18+)a) No falls within the last year EKG COMPLETED IN OFFICE Physical Exam Cardiovascular: the rhythm was irregularly irregular. Signatures Electronically signed by : Atilio Evans MD; Mar 16 2023 6:29PM EST (Author) Normal [employer] Tobacco Screening.on 023 Adult depression screening assessment No -[facility] [address] DO Work Phone: Fall risk assessment a) No falls within the last year -[facility] [address] DO Work Phone: Tobacco use status CPHS b) No -[facility] [address] DO Work Phone: Progress Noteson 02-27-2023 [employer] Authentication Interface Message Text EMERGENCY TRIAGE, TREAT AND TRANSPORT (ET3) DOCUMENTATION OF TELEHEALTH VISIT Date / Time: 02/26/20232204 Name: Jose Rocha : 1940 SSN: (Not on file) EMS Agency: [facility] [x] Verbal consent obtained [] Implied consent - patient with potential emergency medical condition requiring assessment of capacity to refuse treatment and/or transport VITAL SIGNS: see flowsheet documentation Reason for Telehealth Visit: feels a little weak History of Present Illness: Wanted to get checked out. [place] warm and a little weak. Recent discharge from [facility] with atrial fibrillation issues. Was placed on eliquus and discharged. Takes flecainide has been on this for a few years. No blood in urine or stool. Rates originally 90-120, now 80-100. Additional pertinent PMHx, SocHx, FamHx: Review of Systems: Denies the following: chest pain dyspnea fainting Exam: General: Awake, no distress ENT: normocephalic, atraumatic Pulmonary: No respiratory distress Cardiovascular: Well perfused. Neurologic: Oriented to person, place, time and events. Moving all extremities equally. Psychiatric: Appropriate. Good insight and judgement. Medical Decision Making: Patient with known atrial fibrillation presents with nonspecific symptoms. Call level 1 due to the concern for feeling slightly weak. If the baby much improved now. His initial heart rate was 90-120, it is now consistently below 100. The patient is well appearing, appears very well educated about his illness. He was started on Eliquis with the discharge and he believes that their plan is to attempt to cardiovert him and several weeks. I advised him that it appears that his rate control is not optimal, but he is not having alarm symptoms of chest pain, shortness of breath, near-syncope or syncope, he is fine to go with outpatient follow-up. He agrees to at a minimum contact his doctor on Monday. He knows that if any of these symptoms happen in the meantime he should seek medical attention immediately. He also denies any signs of bleeding in his urine or in his bowel movement. He has had no recent trauma. Patient demonstrates good decision-making capacity does not indicate any signs of intoxication or altered mental status. Disposition Supported by Telehealth Assessment: ET3 transport decisions: Treat in place EMS Disposition Reported: Same ET3 Encounter Completed by: Juaquin Farrell MD Normal [facility] [employer] [facility] CHEMISTRYOrdered By: SYSTEM SYSTEM on 02-25-2023 Anion gap [Moles/Vol] 7 mmol/L Normal 6 - 16 mEq/L [facility] Calcium [Mass/Vol] 8.6 mg/dL Low 8.9 - 11.1 mg/dL [facility] Chloride [Moles/Vol] 110 mmol/L Normal 101 - 111 mmol/L [facility] CO2 [Moles/Vol] 26 mmol/L Normal 21 - 31 mmol/L [facility] Creatinine [Mass/Vol] 0.7 mg/dL Normal 0.5 - 1.3 mg/dL [facility] GFR/1.73 sq M.predicted among non-blacks MDRD (S/P/Bld) [Vol rate/Area] 91 mL/min/1.73 m2 Normal >=59mL/min/1.73 m2 FT Chem S Glucose [Mass/Vol] 99 mg/dL Normal 55 - 199 mg/dL [facility] Magnesium [Mass/Vol] 2.0 mg/dL Normal 1.3 - 2.4 mg/dL [facility] Potassium [Moles/Vol] 3.9 mmol/L Normal 3.5 - 5.3 mmol/L [facility] Sodium [Moles/Vol] 139 mmol/L Normal 135 - 145 mmol/L [facility] Urea nitrogen [Mass/Vol] 14 mg/dL Normal 5 - 21 mg/dL [facility] Remisol Urea nitrogen/Creatinine [Mass ratio] 20 mg/mg Normal 10 - 20 [facility] Remisol CHEMISTRYOrdered By: SYSTEM SYSTEM on 02-24-2023 Anion gap [Moles/Vol] 11 mmol/L Normal 6 - 16 mEq/L [facility] Remisol Calcium [Mass/Vol] 9.6 mg/dL Normal 8.9 - 11.1 mg/dL [facility] Remisol Chloride [Moles/Vol] 108 mmol/L Normal 101 - 111 mmol/L [facility] Remisol CO2 [Moles/Vol] 25 mmol/L Normal 21 - 31 mmol/L [facility] Remisol Creatinine [Mass/Vol] 0.8 mg/dL Normal 0.5 - 1.3 mg/dL [facility] Remisol GFR/1.73 sq M.predicted among non-blacks MDRD (S/P/Bld) [Vol rate/Area] 87 mL/min/1.73 m2 Normal >=59mL/min/1.73 m2 [facility] Chem S Glucose [Mass/Vol] 158 mg/dL Normal 55 - 199 mg/dL [facility] Remisol Potassium [Moles/Vol] 3.8 mmol/L Normal 3.5 - 5.3 mmol/L [facility] Remisol Sodium [Moles/Vol] 140 mmol/L Normal 135 - 145 mmol/L [facility] Remisol Troponin I.cardiac [Mass/Vol] 4.10 pg/mL Low 15.90 - 38.40 pg/mL [facility] Remisol Urea nitrogen [Mass/Vol] 17 mg/dL Normal 5 - 21 mg/dL [facility] Remisol Urea nitrogen/Creatinine [Mass ratio] 21 mg/mg High 10 - 20 [facility] Remisol CHEMISTRYOrdered By: Lab ROP User on 02-24-2023 Glucose [Mass/Vol] 152 mg/dL High 55 - 99 mg/dL FT C POC Subsection Comment on above: Result Comment: Aidee gallegos Meter POC Device SN [id number] Invalid Interpretation Code [facility] POC Subsection POC User ID [id number] Invalid Interpretation Code [facility] POC Subsection POC Username [email or web address] [email or web address] Invalid Interpretation Code [facility] POC Subsection COAGULATIONOrdered By: Leticia Rincon on 02-24-2023 aPTT Coag (PPP) [Time] 36.7 s High 25.1 - 36.5 second(s) [facility] Auto Coag INR Coag (PPP) [Relative time] 1.1 {INR} Invalid Interpretation Code [facility] Co[facility] PT Coag (PPP) [Time] 11.9 s Normal 9.4 - 12.5 second(s) [facility] Coag HEMATOLOGYOrdered By: SYSTEM SYSTEM on 02-24-2023 Basophils/100 WBC (Bld) 0.8 % Normal 0.0 - 2.0 % [facility] Basophils/Leukocyte s Auto (Bld) [Pure # fraction] 0.1 E9/L Normal 0.0 - 0.2 E9/L [facility] Eosinophils/100 WBC (Bld) 1.3 % Normal 0.0 - 8.0 % [facility] Eosinophils/Leukocy laquita Auto (Bld) [Pure # fraction] 0.1 E9/L Normal 0.0 - 0.5 E9/L [facility] Lymphocytes/100 WBC (Bld) 20.2 % Normal 14.0 - 50.0 % [facility] Lymphocytes/Leukocy laquita Auto (Bld) [Pure # fraction] 1.5 E9/L Normal 1.0 - 4.0 E9/L [facility] Monocytes/100 WBC (Bld) 9.3 % Normal 4.0 - 14.0 % [facility] Monocytes/Leukocyte s Auto (Bld) [Pure # fraction] 0.7 E9/L Normal 0.2 - 1.0 E9/L [facility] Neutrophils/100 WBC (Bld) 68.4 % Normal 36.0 - 75.0 % [facility] Neutrophils/Leukocy laquita Auto (Bld) [Pure # fraction] 5.1 E9/L Normal 2.0 - 7.5 E9/L [facility] HEMATOLOGYOrdered By: Carrol Lane on 02-24-2023 Erythrocyte distribution width (RBC) [Ratio] 14.4 % High 10.9 - 14.2 % [facility] Hematocrit (Bld) [Volume fraction] 42.8 % Normal 37.7 - 49.0 % [facility] Hemoglobin (Bld) [Mass/Vol] 14.4 g/dL Normal 13.5 - 17.5 gm/dL [facility] MCH (RBC) [Entitic mass] 30.9 pg Normal 27.0 - 34.0 pg [facility] MCHC (RBC) [Mass/Vol] 33.6 g/dL Normal 31.4 - 36.0 gm/dL [facility] MCV (RBC) [Entitic vol] 91.9 fL Normal 80.0 - 100.0 fL [facility] Platelet mean volume (Bld) [Entitic vol] 6.6 fL Normal 6.4 - 10.8 fL [facility] Platelets (Bld) [#/Vol] 269.0 E9/L Normal 150.0 - 500.0 E9/L [facility] RBC (Bld) [#/Vol] 4.6 E12/L Normal 4.3 - 5.9 E12/L [facility] WBC corrected for nucl RBC Auto (Bld) [#/Vol] 7.4 E9/L Normal 4.0 - 11.0 E9/L [facility] CHEMISTRYOrdered By: SYSTEM SYSTEM on 11-27-2022 Troponin I.cardiac [Mass/Vol] 6.50 pg/mL Low 15.90 - 38.40 pg/mL [facility] Albumin [Mass/Vol] 4.2 g/dL Normal 3.3 - 5.0 gm/dL [facility] Albumin/Globulin [Mass ratio] 1.5 {ratio} Normal 1.1 - 2.2 [facility] ALP [Catalytic activity/Vol] 80 [iU]/d Normal 21 - 98 Int._Unit/L [facility] ALT No additional P-5'-P [Catalytic activity/Vol] 17 [iU]/d Normal 6 - 46 Int._Unit/L [facility] Anion gap [Moles/Vol] 12 mmol/L Normal 6 - 16 mEq/L [facility] AST [Catalytic activity/Vol] 19 [iU]/d Normal 5 - 43 Int._Unit/L [facility] Bilirubin [Mass/Vol] 1.0 mg/dL Normal 0.0 - 1.1 mg/dL [facility] Bilirubin.direct [Mass/Vol] 0.2 mg/dL Normal 0.1 - 0.4 mg/dL [facility] Bilirubin.indirect [Mass or moles/Vol] 0.8 mg/dL Normal 0.1 - 0.9 mg/dL [facility] Calcium [Mass/Vol] 9.3 mg/dL Normal 8.9 - 11.1 mg/dL [facility] Chloride [Moles/Vol] 103 mmol/L Normal 101 - 111 mmol/L [facility] CO2 [Moles/Vol] 27 mmol/L Normal 21 - 31 mmol/L [facility] Creatinine [Mass/Vol] 0.7 mg/dL Normal 0.5 - 1.3 mg/dL [facility] GFR/1.73 sq M.predicted among blacks MDRD (S/P/Bld) [Vol rate/Area] mL/min/1.73 m2 Normal >=59mL/min/1.73 m2 [facility] Chem S GFR/1.73 sq M.predicted among non-blacks MDRD (S/P/Bld) [Vol rate/Area] mL/min/1.73 m2 Normal >=59mL/min/1.73 m2 [facility] Chem S Globulin (S) [Mass/Vol] 2.8 g/dL Normal 1.4 - 4.0 gm/dL [facility] Glucose [Mass/Vol] 105 mg/dL Normal 55 - 199 mg/dL [facility] Lactate [Mass/Vol] 0.7 mmol/L Normal 0.5 - 2.2 mmol/L [facility] Potassium [Moles/Vol] 4.0 mmol/L Normal 3.5 - 5.3 mmol/L [facility] Protein [Mass/Vol] 7.0 g/dL Normal 6.0 - 7.8 gm/dL [facility] Remisol Sodium [Moles/Vol] 138 mmol/L Normal 135 - 145 mmol/L [facility] Troponin I.cardiac [Mass/Vol] 7.00 pg/mL Low 15.90 - 38.40 pg/mL [facility] Urea nitrogen [Mass/Vol] 13 mg/dL Normal 5 - 21 mg/dL [facility] Urea nitrogen/Creatinine [Mass ratio] 19 mg/mg Normal 10 - 20 [facility] CHEMISTRYOrdered By: Carrol Lane on 11-27-2022 Natriuretic peptide B (Bld) [Mass/Vol] 114 pg/mL High 5 - 80 pg/mL [facility] HEMATOLOGYOrdered By: SYSTEM SYSTEM on 11-27-2022 Basophils/100 WBC (Bld) 1.0 % Normal 0.0 - 2.0 % [facility] Basophils/Leukocyte s Auto (Bld) [Pure # fraction] 0.1 E9/L Normal 0.0 - 0.2 E9/L [facility] Eosinophils/100 WBC (Bld) 2.1 % Normal 0.0 - 8.0 % [facility] Eosinophils/Leukocy laquita Auto (Bld) [Pure # fraction] 0.1 E9/L Normal 0.0 - 0.5 E9/L [facility] Lymphocytes/100 WBC (Bld) 24.8 % Normal 14.0 - 50.0 % [facility] Lymphocytes/Leukocy laquita Auto (Bld) [Pure # fraction] 1.8 E9/L Normal 1.0 - 4.0 E9/L [facility] Monocytes/100 WBC (Bld) 11.2 % Normal 4.0 - 14.0 % [facility] Monocytes/Leukocyte s Auto (Bld) [Pure # fraction] 0.8 E9/L Normal 0.2 - 1.0 E9/L [facility] Neutrophils/100 WBC (Bld) 60.9 % Normal 36.0 - 75.0 % [facility] Neutrophils/Leukocy laquita Auto (Bld) [Pure # fraction] 4.3 E9/L Normal 2.0 - 7.5 E9/L [facility] HEMATOLOGYOrdered By: Carrol Lane on 11-27-2022 Erythrocyte distribution width (RBC) [Ratio] 13.4 % Normal 10.9 - 14.2 % [facility] Hematocrit (Bld) [Volume fraction] 43.3 % Normal 37.7 - 49.0 % [facility] Hemoglobin (Bld) [Mass/Vol] 14.6 g/dL Normal 13.5 - 17.5 gm/dL [facility] MCH (RBC) [Entitic mass] 30.8 pg Normal 27.0 - 34.0 pg [facility] MCHC (RBC) [Mass/Vol] 33.6 g/dL Normal 31.4 - 36.0 gm/dL [facility] MCV (RBC) [Entitic vol] 91.6 fL Normal 80.0 - 100.0 fL [facility] Platelet mean volume (Bld) [Entitic vol] 6.8 fL Normal 6.4 - 10.8 fL [facility] Platelets (Bld) [#/Vol] 265.0 E9/L Normal 150.0 - 500.0 E9/L [facility] RBC (Bld) [#/Vol] 4.7 E12/L Normal 4.3 - 5.9 E12/L [facility] WBC corrected for nucl RBC Auto (Bld) [#/Vol] 7.1 E9/L Normal 4.0 - 11.0 E9/L [facility] URINALYSISOrdered By: Leticia Rincon on 11-27-2022 Bilirubin Ql (U) Negative (11/27/22 10:43 AM) Normal Negative [facility] UA Auto SS Clarity (U) Clear (11/27/22 10:43 AM) Normal Clear [facility] Auto SS Color (U) Yellow (11/27/22 10:43 AM) Normal Yellow [facility]A Auto SS Epithelial cells.squamous LM.HPF (Urine sed) [#/Area] 0-2 /HPF Normal 0-2/HPF [facility] Auto SS Glucose Test strip (U) [Mass/Vol] Negative (11/27/22 10:43 AM) Normal Negative [facility]A Auto SS Hemoglobin Ql (U) Negative (11/27/22 10:43 AM) Normal Negative [facility] Auto SS Ketones (U) [Mass/Vol] Negative (11/27/22 10:43 AM) Normal Negative [facility] UA Auto SS [place].plasma/Lith ium.RBC (Bld) [Mass ratio] 0-3 /HPF Normal 0-3/HPF [facility] Auto SS Nitrite Ql (U) Negative (11/27/22 10:43 AM) Normal Negative [facility] Auto SS pH (U) 6.0 *NA* (11/27/22 10:43 AM) Invalid Interpretation Code 5.0 - 9.0 [facility]A Auto SS Protein (U) [Mass/Vol] Negative (11/27/22 10:43 AM) Normal Negative [facility]A Auto SS Specific gravity (U) [Rel density] 1.020 *NA* (11/27/22 10:43 AM) Invalid Interpretation Code 1.005 - 1.030 [facility] UA Auto SS UA Spec Desc Clean Catch (11/27/22 10:43 AM) Normal [facility] UA Auto SS Urobilinogen Qn (U) [id number] {[place]'U}/dL Normal 0.0 - 1.0 EU/dL [facility] UA Auto SS WBC Auto Ql (U) Trace *ABN* (11/27/22 10:43 AM) Invalid Interpretation Code Negative [facility] UA Auto SS WBC LM.HPF (Urine sed) [#/Area] 0-5 /HPF Normal 0-5/HPF [facility] UA Auto SS XR Ribs w/ PA Chest Right*on 10-16-2022 XR Ribs w/ PA Chest Right* HISTORY: Right-sided neck pain. Right arm pain. Rib pain. COMPARISON: CT cervical spine 05/04/2021. Rib x-rays 09/09/2020 RESULT: Chest/RIBS: No focal consolidation. No pleural effusion. No pneumothorax. Normal cardiomediastinal silhouette. Aortic vascular calcifications. No acute osseous findings. No distinct acute displaced rib fracture. Surgical clips right upper quadrant. Surgical clips epigastric region. Cervical spine: Counting reference of craniocervical junction. No radiographic evidence for acute fracture. Straightening of the cervical lordosis. Grade 1 anterolisthesis of C4 on C5. Multilevel degenerative changes with disc height loss, endplate osteophytes, facet/uncovertebral degenerative changes, especially of the mid to lower cervical spine with multilevel bony foraminal narrowing. Carotid calcifications. No other significant abnormality. IMPRESSION: No acute osseous findings involving the thorax/ribs, or cervical spine. Degenerative changes cervical spine. Report reported and signed by Shan Lewis on 10/16/2022 1338 Normal [facility] XR Spine Cervical Complete*o n 10-16-2022 XR Spine Cervical Complete* refer to concurrent rib/chest radiographs. Report reported and signed by Shan Lewis on 10/16/2022 1338 Normal [facility] Tobacco Screening.on Adult depression screening assessment No [facility] [employer] 600 DO Work Phone: Fall risk assessment a) No falls within the last year [facility] [employer] 600 DO Work Phone: [phone] Tobacco use status CPHS b) No [facility] [employer] 600 DO Work Phone: CHEMISTRYOrdered By: SYSTEM SYSTEM on 05-16-2022 Albumin [Mass/Vol] 4.2 g/dL Normal 3.3 - 5.0 gm/dL [facility] Rem[facility] Albumin/Globulin [Mass ratio] 1.7 {ratio} Normal 1.1 - 2.2 [facility] ALP [Catalytic activity/Vol] 67 [iU]/d Normal 21 - 98 Int._Unit/L [facility] ALT No additional P-5'-P [Catalytic activity/Vol] 21 [iU]/d Normal 6 - 46 Int._Unit/L [facility] Anion gap [Moles/Vol] 10 mmol/L Normal 6 - 16 mEq/L [facility] AST [Catalytic activity/Vol] 20 [iU]/d Normal 5 - 43 Int._Unit/L [facility] Bilirubin [Mass/Vol] 1.0 mg/dL Normal 0.0 - 1.1 mg/dL [facility] Bilirubin.direct [Mass/Vol] 0.1 mg/dL Normal 0.1 - 0.4 mg/dL [facility] Bilirubin.indirect [Mass or moles/Vol] 0.9 mg/dL Normal 0.1 - 0.9 mg/dL [facility] Calcium [Mass/Vol] 9.2 mg/dL Normal 8.9 - 11.1 mg/dL [facility] Chloride [Moles/Vol] 104 mmol/L Normal 101 - 111 mmol/L [facility] CO2 [Moles/Vol] 28 mmol/L Normal 21 - 31 mmol/L [facility] Creatinine [Mass/Vol] 0.7 mg/dL Normal 0.5 - 1.3 mg/dL [facility] GFR/1.73 sq M.predicted among blacks MDRD (S/P/Bld) [Vol rate/Area] mL/min/1.73 m2 Normal >=59mL/min/1.73 m2 [facility] Chem S GFR/1.73 sq M.predicted among non-blacks MDRD (S/P/Bld) [Vol rate/Area] mL/min/1.73 m2 Normal >=59mL/min/1.73 m2 [facility] Chem S Globulin (S) [Mass/Vol] 2.5 g/dL Normal 1.4 - 4.0 gm/dL [facility] Glucose [Mass/Vol] 96 mg/dL Normal 55 - 199 mg/dL [facility] Lipase [Catalytic activity/Vol] 28 U/L Normal 13 - 58 unit/L [facility] Potassium [Moles/Vol] 3.8 mmol/L Normal 3.5 - 5.3 mmol/L [facility] Protein [Mass/Vol] 6.7 g/dL Normal 6.0 - 7.8 gm/dL [facility] Remisol Sodium [Moles/Vol] 138 mmol/L Normal 135 - 145 mmol/L [facility] Troponin I.cardiac [Mass/Vol] 5.50 pg/mL Low 15.90 - 38.40 pg/mL [facility] Urea nitrogen [Mass/Vol] 11 mg/dL Normal 5 - 21 mg/dL [facility] Urea nitrogen/Creatinine [Mass ratio] 16 mg/mg Normal 10 - 20 [facility] COAGULATIONOrdered By: Nicole Ramirez on 05-16-2022 aPTT Coag (PPP) [Time] 33.4 s Normal 25.1 - 36.5 second(s) [facility] Auto Coag INR Coag (PPP) [Relative time] 1.0 {INR} Invalid Interpretation Code [facility] Auto Coag PT Coag (PPP) [Time] 11.5 s Normal 9.4 - 12.5 second(s) [facility] Auto Coag HEMATOLOGYOrdered By: SYSTEM SYSTEM on 05-16-2022 Basophils/100 WBC (Bld) 0.3 % Normal 0.0 - 2.0 % [facility] Basophils/Leukocyte s Auto (Bld) [Pure # fraction] 0.0 E9/L Normal 0.0 - 0.2 E9/L [facility] Eosinophils/100 WBC (Bld) 2.6 % Normal 0.0 - 8.0 % [facility] Eosinophils/Leukocy laquita Auto (Bld) [Pure # fraction] 0.2 E9/L Normal 0.0 - 0.5 E9/L [facility] Lymphocytes/100 WBC (Bld) 22.4 % Normal 14.0 - 50.0 % [facility] Lymphocytes/Leukocy laquita Auto (Bld) [Pure # fraction] 1.4 E9/L Normal 1.0 - 4.0 E9/L [facility] Monocytes/100 WBC (Bld) 9.7 % Normal 4.0 - 14.0 % [facility] Monocytes/Leukocyte s Auto (Bld) [Pure # fraction] 0.6 E9/L Normal 0.2 - 1.0 E9/L [facility] Neutrophils/100 WBC (Bld) 65.0 % Normal 36.0 - 75.0 % [facility] Neutrophils/Leukocy laquita Auto (Bld) [Pure # fraction] 4.1 E9/L Normal 2.0 - 7.5 E9/L [facility] HEMATOLOGYOrdered By: Lolis frye on 05-16-2022 Erythrocyte distribution width (RBC) [Ratio] 13.6 % Normal 10.9 - 14.2 % [facility] Hematocrit (Bld) [Volume fraction] 40.2 % Normal 37.7 - 49.0 % [facility] Hemoglobin (Bld) [Mass/Vol] 14.1 g/dL Normal 13.5 - 17.5 gm/dL [facility] MCH (RBC) [Entitic mass] 32.2 pg Normal 27.0 - 34.0 pg [facility] MCHC (RBC) [Mass/Vol] 35.1 g/dL Normal 31.4 - 36.0 gm/dL [facility] MCV (RBC) [Entitic vol] 91.6 fL Normal 80.0 - 100.0 fL [facility] Platelet mean volume (Bld) [Entitic vol] 6.3 fL Low 6.4 - 10.8 fL [facility] Platelets (Bld) [#/Vol] 237.0 E9/L Normal 150.0 - 500.0 E9/L [facility] RBC (Bld) [#/Vol] 4.4 E12/L Normal 4.3 - 5.9 E12/L [facility] WBC corrected for nucl RBC Auto (Bld) [#/Vol] 6.3 E9/L Normal 4.0 - 11.0 E9/L [facility] XR Finger Righton 01-10-2022 XR Finger Right CLINICAL HISTORY: Pa in, swelling and redness for 4 days without specific injury. COMPARISON: 06/13/2020. TECHNIQUE: PA, lateral, and oblique radiographs of the right fifth digit were obtained. FINDINGS: Nonspecific soft tissue swelling is present but a around the PIP joint proximally, with faint soft tissue calcifications dorsally. 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 IMPRESSION: SWELLING AND FAINT CALCIFICATIONS PREDOMINANTLY AROUND THE FIFTH PIP JOINT, SUSPICIOUS FOR CALCIFIC PERIARTHRITIS. INFECTION SHOULD BE EXCLUDED CLINICALLY. OTHER CHRONIC FINDINGS, NOT SIGNIFICANTLY CHANGED FROM 06/13/2020, NOTED. Report reported and signed by Tung Kumar on 01/10/2022 1142 Normal [facility] [employer] Tobacco Screening.on 022 Fall risk assessment a) No falls within the last year [facility] [employer] 600 DO Work Phone: Tobacco use status CPHS b) No [facility] [employer] 600 DO Work Phone: Creatinineon 10-24-2018 Creatinine mass conc 0.80 mg/dL Normal 0.50-1.30 [facility] Comment on above: Performed By: #### 1 [id number] #### [facility] [address] [place] [address] GFR/1.73 sq M.predicted MDRD vol rate/area mL/min/{1.73_m2} Normal [facility] Comment on above: Result Comment: Inte rpretation for Chronic Kidney Disease: Stages 1&2 >60 Healthy or potential kidney damage. Mild decrease of GFR. Stage 3 30-59 Moderate decrease of GFR. Stage 4 15-29 Severe decrease of GFR. Stage 5 <15 Kidney failure or on dialysis. Performed By: #### [id number] #### [facility] [address] [place] [address] Electrolyte Panelon 10-24-19 19 Anion gap molar conc 13 mmol/L Normal 10-20 [facility] Comment on above: Performed By: #### [id number] #### [facility] [address] [place] [address] Chloride molar conc 105 mmol/L Normal 98-107 [facility] Comment on above: Performed By: #### [id number] #### [facility] [address] [place] [address] HCO3 molar conc (Bld) 29 mmol/L Normal 21-32 [facility] Comment on above: Performed By: #### 1 [id number] #### [facility] [address] [place] [address] Potassium molar conc 4.7 mmol/L Normal 3.5-5.1 [facility] Comment on above: Performed By: #### [id number] #### [facility] [address] [place] [address] Sodium molar conc 142 mmol/L Normal 136-145 [facility] Comment on above: Performed By: #### 1 [id number] #### [facility] [address] [place] [address] TSHon 10-24-2018 Thyrotropin Qn 1.25 mU/L Normal 0.44-3.98 [facility] Comment on above: Performed By: #### 1 [id number] #### [facility] [address] [place] [address] Thyroxineon 10-24-2018 T4 mass conc 5.7 ug/dL Low 7.1-13.1 [facility] Comment on above: Performed By: #### 1 [id number] #### [facility] [address] [place] [address] Urea Nitrogenon 10-24-2018 Urea nitrogen mass conc 16 mg/dL Normal 6-23 [facility] Comment on above: Performed By: #### [id number] #### [facility] [address] [place] [id number] Vital Signs Date Time Vital Sign Value Performing Clinician Facility 08-07-2024 11:39-0500 Blood Pressure Location Daria Bermudez [facility] 08-07-2024 11:39-0500 Body temperature 98.06 [degF] Daria Bordner [facility] 08-07-2024 11:39-0500 Diastolic blood pressure 76 mm[Hg] Daria Bordner [facility] 08-07-2024 11:39-0500 Heart rate 71 /min Daria Bordner [facility] 08-07-2024 11:39-0500 SaO2% (BldA) [Mass fraction] 97 % Daria Bordner [facility] 08-07-2024 11:39-0500 Systolic blood pressure 128 mm[Hg] Daria Bordner [facility] 07-23-2024 09:38-0400 Blood Pressure Location Daria Bordner [facility] 07-23-2024 09:38-0400 Body temperature 98.06 [degF] Daria Bordner [facility] 07-23-2024 09:38-0400 Diastolic blood pressure 60 mm[Hg] Daria Bordner [facility] 07-23-2024 09:38-0400 Heart rate 63 /min Daria Bordner [facility] 07-23-2024 09:38-0400 SaO2% (BldA) [Mass fraction] 98 % Daria Bordner [facility] 07-23-2024 09:38-0400 Systolic blood pressure 100 mm[Hg] Daria Bordner [facility] 07-15-2024 14:53-0400 Blood Pressure Location [facility] 07-15-2024 14:53-0400 Body temperature 98.6 [degF] [facility] 07-15-2024 14:53-0400 Diastolic blood pressure 64 mm[Hg] [facility] 07-15-2024 14:53-0400 Heart rate 68 /min [facility] 07-15-2024 14:53-0400 Respiratory rate 16 /min [facility] 07-15-2024 14:53-0400 SaO2% (BldA) [Mass fraction] 94 % [facility] 07-15-2024 14:53-0400 Systolic blood pressure 108 mm[Hg] [facility] 07-15-2024 13:46-0400 Blood Pressure Location [facility] 07-15-2024 13:46-0400 Diastolic blood pressure 64 mm[Hg] [facility] 07-15-2024 13:46-0400 Heart rate 68 /min [facility] 07-15-2024 13:46-0400 Respiratory rate 16 /min [facility] 07-15-2024 13:46-0400 SaO2% (BldA) [Mass fraction] 94 % Jamison KAPLE [facility] 07-15-2024 13:46-0400 Systolic blood pressure 108 mm[Hg] Jamison KAPLE [facility] 07-12-2024 15:24-0400 Body height 177.8 cm Christshira Bohach DPM Work Phone: [facility] 07-12-2024 15:24-0400 Body mass index (BMI) [Ratio] 27.26 kg/m2 Christmaurilioer Bohach DPM Work Phone: [facility] 07-12-2024 15:24-0400 Body weight 86.18 kg Christmaurilioer Bohach DPM Work Phone: [facility] 07-12-2024 15:24-0400 Diastolic blood pressure 51 mm[Hg] Catie Wyattach DPM Work Phone: [facility] 07-12-2024 15:24-0400 Heart rate 61 /min Christmaurilioer Bohach DPM Work Phone: [facility] 07-12-2024 15:24-0400 Respiratory rate 18 /min Catie Bohach DPM Work Phone: [facility] 07-12-2024 15:24-0400 Systolic blood pressure 114 mm[Hg] Catie Bohach DPM Work Phone: [facility] 06-27-2024 12:57-0400 Body height 177.8 cm Ivone Jimenez DO Work Phone: [facility] 06-27-2024 12:57-0400 Body mass index (BMI) [Ratio] 27.26 kg/m2 Ivone Jimenez DO Work Phone: [facility] 06-27-2024 12:57-0400 Body weight 86.18 kg Ivone Jimenez DO Work Phone: [facility] 05-31-2024 13:37-0400 Blood Pressure Location JUANA BURLESON [facility] 05-31-2024 13:37-0400 Body temperature 98.6 [degF] JUANA BURLESON [facility] 05-31-2024 13:37-0400 Diastolic blood pressure 64 mm[Hg] JUANA BURLESON [facility] 05-31-2024 13:37-0400 Heart rate 60 /min JUANA BURLESON [facility] 05-31-2024 13:37-0400 SaO2% (BldA) [Mass fraction] 96 % [employer] [facility] 05-31-2024 13:37-0400 Systolic blood pressure 110 mm[Hg] RUBY BURLESON [facility] 05-20-2024 13:28-0400 Blood Pressure Location [facility] 05-20-2024 13:28-0400 Diastolic blood pressure 64 mm[Hg] [facility] 05-20-2024 13:28-0400 Heart rate 90 /min [facility] 05-20-2024 13:28-0400 SaO2% (BldA) [Mass fraction] 98 % [facility] 05-20-2024 13:28-0400 Systolic blood pressure 122 mm[Hg] [facility] 05-16-2024 17:00-0400 Blood Pressure Location [facility] 05-16-2024 17:00-0400 Body temperature 98.78 [degF] [facility] 05-16-2024 17:00-0400 Diastolic blood pressure 64 mm[Hg] [facility] 05-16-2024 17:00-0400 Heart rate 87 /min [facility] 05-16-2024 17:00-0400 SaO2% (BldA) [Mass fraction] 97 % [facility] 05-16-2024 17:00-0400 Systolic blood pressure 122 mm[Hg] Ivone Bull [facility] 05-15-2024 10:39-0400 Blood Pressure Location Fidel Magdaleno [facility] 05-15-2024 10:39-0400 Body temperature 98.78 [degF] Fidel Magdaleno [facility] 05-15-2024 10:39-0400 Diastolic blood pressure 60 mm[Hg] Fidel Magdaleno [facility] 05-15-2024 10:39-0400 Heart rate 90 /min Fidel Magdaleno [facility] 05-15-2024 10:39-0400 SaO2% (BldA) [Mass fraction] 96 % Fidel Magdaleno [facility] 05-15-2024 10:39-0400 Systolic blood pressure 120 mm[Hg] Fidel Magdaleno [facility] 04-13-2024 13:25-0400 Blood Pressure Location FABIO BEARDEN [facility] 04-13-2024 13:25-0400 Body temperature 98.6 [degF] FABIO BEARDEN [facility] 04-13-2024 13:25-0400 Diastolic blood pressure 60 mm[Hg] FABIO BEARDEN [facility] 04-13-2024 13:25-0400 Heart rate 91 /min FABIO BEARDEN [facility] 04-13-2024 13:25-0400 SaO2% (BldA) [Mass fraction] 96 % FABIO BEARDEN [facility] 04-13-2024 13:25-0400 Systolic blood pressure 116 mm[Hg] FABIO GARCIANUNO [facility] 03-26-2024 13:08-0400 Blood Pressure Location Jamison TELLEZ [facility] 03-26-2024 13:08-0400 Body temperature 97.52 [degF] Jamison KAPLE [facility] 03-26-2024 13:08-0400 Diastolic blood pressure 64 mm[Hg] Jamison KAPLE [facility] 03-26-2024 13:08-0400 Heart rate 60 /min Jamison KAPLE [facility] 03-26-2024 13:08-0400 Respiratory rate 16 /min Jamison KAPLE [facility] 03-26-2024 13:08-0400 SaO2% (BldA) [Mass fraction] 96 % Jamison KAPLE [facility] 03-26-2024 13:08-0400 Systolic blood pressure 124 mm[Hg] Jamison KAPLE [facility] 02-06-2024 09:57-0400 Body height 177.8 cm Atilio Evans MD Work Phone: [facility] 02-06-2024 09:57-0400 Body mass index (BMI) [Ratio] 27.55 kg/m2 Atilio Evans MD Work Phone: [facility] 02-06-2024 09:57-0400 Body weight 87.09 kg Atilio Evans MD Work Phone: [facility] 02-06-2024 09:57-0400 Diastolic blood pressure 64 mm[Hg] Atilio Evans MD Work Phone: [facility] 02-06-2024 09:57-0400 Heart rate 67 /min Atilio Evans MD Work Phone: [facility] 02-06-2024 09:57-0400 Systolic blood pressure 112 mm[Hg] Atilio Evans MD Work Phone: [facility] 01-28-2024 14:32-0400 Blood Pressure Location Romeo Anders [facility] 01-28-2024 14:32-0400 Body temperature 97.52 [degF] Romeo Anders [facility] 01-28-2024 14:32-0400 Diastolic blood pressure 76 mm[Hg] Romeo Anders [facility] 01-28-2024 14:32-0400 Heart rate 58 /min Romeo Anders [facility] 01-28-2024 14:32-0400 SaO2% (BldA) [Mass fraction] 97 % Romeo Anders [facility] 01-28-2024 14:32-0400 Systolic blood pressure 116 mm[Hg] Romeo Anders [facility] 01-07-2024 13:12-0400 Body temperature 98.24 [degF] [facility] 01-07-2024 13:12-0400 Diastolic blood pressure 69 mm[Hg] [facility] 01-07-2024 13:12-0400 Heart rate 83 /min [facility] 01-07-2024 13:12-0400 Respiratory rate 16 /min [facility] 01-07-2024 13:12-0400 SaO2% (BldA) [Mass fraction] 97 % [facility] 01-07-2024 13:12-0400 Systolic blood pressure 119 mm[Hg] Shantell [facility] 12-19-2023 13:28-0400 Blood Pressure Location Jamison AMAROLE [facility] 12-19-2023 13:28-0400 Body temperature 98.24 [degF] Jamison KAPLE [facility] 12-19-2023 13:28-0400 Diastolic blood pressure 62 mm[Hg] Jamison KAPLE [facility] 12-19-2023 13:28-0400 Heart rate 75 /min Jamison KAPLE [facility] 12-19-2023 13:28-0400 Respiratory rate 18 /min Jamison KAPLE [facility] 12-19-2023 13:28-0400 SaO2% (BldA) [Mass fraction] 95 % Jamison KAPLE [facility] 12-19-2023 13:28-0400 Systolic blood pressure 128 mm[Hg] Jamison KAPLE [facility] 11-20-2023 13:16-0500 Blood Pressure Location Subha Missler [facility] 11-20-2023 13:16-0500 Body temperature 98.24 [degF] Subha Missler [facility] 11-20-2023 13:16-0500 Diastolic blood pressure 68 mm[Hg] Subha Missler [facility] 11-20-2023 13:16-0500 Heart rate 70 /min Subha Missler [facility] 11-20-2023 13:16-0500 Respiratory rate 18 /min Subha Noel [facility] 11-20-2023 13:16-0500 SaO2% (BldA) [Mass fraction] 98 % Subha Noel [facility] 11-20-2023 13:16-0500 Systolic blood pressure 120 mm[Hg] Subha Noel [facility] 11-16-2023 11:27-0500 Blood Pressure Location [facility] 11-16-2023 11:27-0500 Body temperature 98.06 [degF] [facility] 11-16-2023 11:27-0500 Diastolic blood pressure 72 mm[Hg] [facility] 11-16-2023 11:27-0500 Heart rate 83 /min [facility] 11-16-2023 11:27-0500 SaO2% (BldA) [Mass fraction] 95 % [facility] 11-16-2023 11:27-0500 Systolic blood pressure 120 mm[Hg] [facility] 11-13-2023 13:32-0500 Diastolic blood pressure 60 mm[Hg] Fidel Magdaleno [facility] 11-13-2023 13:32-0500 Systolic blood pressure 118 mm[Hg] Fidel Magdaleno [facility] 11-10-2023 11:10-0500 Body height 177.8 cm [facility] Work Phone: [facility] 11-10-2023 11:10-0500 Body mass index (BMI) [Ratio] 27.26 kg/m2 [facility] Work Phone: [facility] 11-10-2023 11:10-0500 Body temperature 97.81 [degF] Judi Hernandez PA Work Phone: [facility] 11-10-2023 11:10-0500 Body weight 86.18 kg Judi Hernandez PA Work Phone: [facility] 11-02-2023 13:21-0500 Body height 177.8 cm Catie Calixto DPM Work Phone: [facility] 11-02-2023 13:21-0500 Body mass index (BMI) [Ratio] 27.26 kg/m2 Catie Calixto DPM Work Phone: [facility] 11-02-2023 13:21-0500 Body weight 86.18 kg Catie Wyattach DPM Work Phone: [facility] 11-02-2023 13:21-0500 Diastolic blood pressure 62 mm[Hg] Catie Calixto DPM Work Phone: [facility] 11-02-2023 13:21-0500 Heart rate 58 /min Catie Calixto DPM Work Phone: [facility] 11-02-2023 13:21-0500 Systolic blood pressure 120 mm[Hg] Catie Calixto DPM Work Phone: [facility] 10-29-2023 16:45-0500 Diastolic blood pressure 72 mm[Hg] [facility] 10-29-2023 16:45-0500 Heart rate 71 /min [facility] 10-29-2023 16:45-0500 Mean blood pressure 92 mm[Hg] [facility] 10-29-2023 16:45-0500 Respiratory rate 17 /min [facility] 10-29-2023 16:45-0500 SaO2% (BldA) [Mass fraction] 94 % [facility] 10-29-2023 16:45-0500 Systolic blood pressure 131 mm[Hg] [facility] 10-29-2023 16:00-0500 Body temperature 97.88 [degF] [facility] 10-29-2023 16:00-0500 Diastolic blood pressure 68 mm[Hg] [facility] 10-29-2023 16:00-0500 Heart rate 68 /min [facility] 10-29-2023 16:00-0500 Respiratory rate 19 /min [facility] 10-29-2023 16:00-0500 SaO2% (BldA) [Mass fraction] 97 % [facility] 10-29-2023 16:00-0500 Systolic blood pressure 139 mm[Hg] [facility] 10-29-2023 15:00-0500 Diastolic blood pressure 70 mm[Hg] [facility] 10-29-2023 15:00-0500 Heart rate 72 /min [facility] 10-29-2023 15:00-0500 Mean blood pressure 82 mm[Hg] [facility] 10-29-2023 15:00-0500 Respiratory rate 18 /min [facility] 10-29-2023 15:00-0500 SaO2% (BldA) [Mass fraction] 93 % [facility] 10-29-2023 15:00-0500 Systolic blood pressure 106 mm[Hg] [facility] 10-29-2023 14:13-0500 Body temperature 98.06 [degF] [facility] 10-29-2023 14:13-0500 Heart rate 76 /min [facility] 10-29-2023 13:55-0500 Body temperature 98.06 [degF] [facility] 10-29-2023 13:55-0500 Heart rate 77 /min [facility] 09-18-2023 13:16-0500 Blood Pressure Location Jamison Parra [facility] 09-18-2023 13:16-0500 Body temperature 97.88 [degF] Jamison AMAROLE [facility] 09-18-2023 13:16-0500 Diastolic blood pressure 62 mm[Hg] Jamison AMAROLE [facility] 09-18-2023 13:16-0500 Heart rate 60 /min Jamison AMAROLE [facility] 09-18-2023 13:16-0500 Respiratory rate 18 /min Jamison AMAROLE [facility] 09-18-2023 13:16-0500 SaO2% (BldA) [Mass fraction] 98 % Jamison TELLEZ [facility] 09-18-2023 13:16-0500 Systolic blood pressure 118 mm[Hg] Jamison TELLEZ [facility] 09-06-2023 14:15-0500 Blood Pressure Location Fidel Magdaleno [facility] 09-06-2023 14:15-0500 Body temperature 97.34 [degF] Fidel Magdaleno [facility] 09-06-2023 14:15-0500 Diastolic blood pressure 62 mm[Hg] Fidel Magdaleno [facility] 09-06-2023 14:15-0500 Heart rate 66 /min Fidel Magdaleno [facility] 09-06-2023 14:15-0500 SaO2% (BldA) [Mass fraction] 98 % Fidel Magdaleno [facility] 09-06-2023 14:15-0500 Systolic blood pressure 104 mm[Hg] Fidel Magdaleno [facility] 07-12-2023 13:57-0400 Blood Pressure Location Param CRAWFORD [facility] 07-12-2023 13:57-0400 Body temperature 97.88 [degF] Param CRAWFORD [facility] 07-12-2023 13:57-0400 Diastolic blood pressure 58 mm[Hg] Param CRAWFORD [facility] 07-12-2023 13:57-0400 Heart rate 60 /min Param CRAWFORD [facility] 07-12-2023 13:57-0400 SaO2% (BldA) [Mass fraction] 94 % Param CRAWFORD [facility] 07-12-2023 13:57-0400 Systolic blood pressure 100 mm[Hg] Param CRAWFORD [facility] 06-29-2023 11:46-0400 Body height 177.8 cm Jamison Tellez [facility] Work Phone: 06-29-2023 11:46-0400 Body mass index (BMI) [Ratio] 26.83 kg/m2 Jamison [facility]z [facility] Work Phone: 06-29-2023 11:46-0400 Body surface area Derived from formula 2.03 m2 Jamison Tellez Work [facility]: [facility] Work Phone: 06-29-2023 11:46-0400 Body weight 84.82 kg Jamison Tellez [facility] Work Phone: 06-29-2023 11:46-0400 Diastolic blood pressure 58 mm[Hg] Jamison Campos Kaple Work Phone: [facility] 600 DO Work Phone: 06-29-2023 11:46-0400 Heart rate 76 /min Jamison Campos Kaple [facility] Work Phone: 06-29-2023 11:46-0400 Systolic blood pressure 130 mm[Hg] Jamison Campos Kaple [facility] DO Work Phone: 06-26-2023 14:21-0400 Body temperature 97.88 [degF] Param Casanova [facility] 06-26-2023 14:21-0400 Diastolic blood pressure 75 mm[Hg] Param Casanova [facility] 06-26-2023 14:21-0400 Heart rate 58 /min Param Treviñoe [facility] 06-26-2023 14:21-0400 Respiratory rate 18 /min Param Casanova [facility] 06-26-2023 14:21-0400 SaO2% (BldA) [Mass fraction] 98 % Param Treviñoe [facility] 06-26-2023 14:21-0400 Systolic blood pressure 153 mm[Hg] Param Treviñoe [facility] 06-19-2023 13:24-0400 Blood Pressure Location Jamison TELLEZ [facility] 06-19-2023 13:24-0400 Body temperature 98.06 [degF] Jamison AMAROLE [facility] 06-19-2023 13:24-0400 Diastolic blood pressure 70 mm[Hg] Jamison AMAROLE [facility] 06-19-2023 13:24-0400 Heart rate 60 /min Jamison AMAROLE [facility] 06-19-2023 13:24-0400 Respiratory rate 16 /min Jamison AMAROLE [facility] 06-19-2023 13:24-0400 SaO2% (BldA) [Mass fraction] 96 % Jamison AMAROLE [facility] 06-19-2023 13:24-0400 Systolic blood pressure 120 mm[Hg] Jamison AMAROLE [facility] 04-27-2023 12:56-0400 Body height 177.8 cm Jamison Amarole Work Phone: [facility] [employer] 600 DO Work Phone: 04-27-2023 12:56-0400 Body mass index (BMI) [Ratio] 26.54 kg/m2 Jamison Amarole Work Phone: [facility] [employer] 600 DO Work Phone: 04-27-2023 12:56-0400 Body surface area Derived from formula 2.02 m2 Jamison Amarole Work Phone: [facility] [employer] 600 DO Work Phone: 04-27-2023 12:56-0400 Body weight 83.92 kg Jamison Amarole Work Phone: [facility] [employer] 600 DO Work Phone: 04-27-2023 12:56-0400 Diastolic blood pressure 60 mm[Hg] Jamison Amarole Work Phone: [facility] 600 DO Work Phone: 04-27-2023 12:56-0400 Heart rate 66 /min Jamison Tellez Work Phone: [facility] 600 DO Work Phone: 04-27-2023 12:56-0400 Systolic blood pressure 100 mm[Hg] Jamison Tellez Work Phone: [facility] 600 DO Work Phone: 04-06-2023 10:43-0400 Blood Pressure Location Jamison AMAROLE [facility] 04-06-2023 10:43-0400 Body temperature 98.06 [degF] Jamison AMAROLE [facility] 04-06-2023 10:43-0400 Diastolic blood pressure 62 mm[Hg] Jamison AMAROLE [facility] 04-06-2023 10:43-0400 Heart rate 65 /min Jamison AMAROLE [facility] 04-06-2023 10:43-0400 Respiratory rate 16 /min Jamison AMAROLE [facility] 04-06-2023 10:43-0400 SaO2% (BldA) [Mass fraction] 96 % Jamison AMAROLE [facility] 04-06-2023 10:43-0400 Systolic blood pressure 124 mm[Hg] Jamison KAPLE [facility] 04-02-2023 14:00-0400 Diastolic blood pressure 85 mm[Hg] Dmitry Norman [facility] 04-02-2023 14:00-0400 Heart rate 63 /min Dmitry Norman [facility] 07-02-2023 14:00-0400 Hourly Rounding Dmitry Norman [facility] 04-02-2023 14:00-0400 Respiratory rate 13 /min Dmitry Norman [facility] 04-02-2023 14:00-0400 SaO2% (BldA) [Mass fraction] 99 % Dmitry Norman [facility] 04-02-2023 14:00-0400 Systolic blood pressure 160 mm[Hg] Dmitry Norman [facility] 04-02-2023 13:00-0400 Diastolic blood pressure 72 mm[Hg] Dmitry Norman [facility] 04-02-2023 13:00-0400 Heart rate 67 /min Dmitry Norman [facility] 04-02-2023 13:00-0400 Hourly Rounding Dmitry Norman [facility] 04-02-2023 13:00-0400 Mean blood pressure 92 mm[Hg] Dmitry Norman [facility] 04-02-2023 13:00-0400 Respiratory rate 15 /min Dmitry Norman [facility] 04-02-2023 13:00-0400 Systolic blood pressure 132 mm[Hg] Dmitry Norman [facility] 04-02-2023 12:06-0400 Body temperature 98.06 [degF] Dmitry Norman [facility] 04-02-2023 12:06-0400 Diastolic blood pressure 76 mm[Hg] Dmitry Norman [facility] 04-02-2023 12:06-0400 Heart rate 69 /min Dmitry Norman [facility] 04-02-2023 12:06-0400 SaO2% (BldA) [Mass fraction] 98 % Dmitry Austin [facility] 04-02-2023 12:06-0400 Systolic blood pressure 139 mm[Hg] Dmitry Austin [facility] 04-02-2023 12:00-0400 Hourly Rounding Dmitry Austin [facility] 04-02-2023 12:00-0400 Respiratory rate 18 /min Dmitry Austin [facility] 03-31-2023 09:44-0400 65 1 Jamison Tellez Work Phone: [facility] [employer] DO Work Phone: Comment on above: [id number] 03-16-2023 14:22-0400 Body height 177.8 cm Jamison Tellez Work Phone: [facility] 250 DO Work Phone: 03-16-2023 14:22-0400 Body mass index (BMI) [Ratio] 26.98 kg/m2 Jamison Tellez Work Phone: [facility] 250 DO Work Phone: 03-16-2023 14:22-0400 Body surface area Derived from formula 2.03 m2 Jamison Tellez Work Phone: [facility] [employer] 250 DO Work Phone: 03-16-2023 14:22-0400 Body weight 85.28 kg Jamison Tellez Work Phone: [facility] 250 DO Work Phone: 03-16-2023 14:22-0400 Diastolic blood pressure 84 mm[Hg] Jamison Tellez Work Phone: [facility] 250 DO Work Phone: 03-16-2023 14:22-0400 Heart rate 92 /min Jamison Tellez Work Phone: [facility] 250 DO Work Phone: 03-16-2023 14:22-0400 Systolic blood pressure 126 mm[Hg] Jamison Tellez Work Phone: [facility] 250 DO Work Phone: 03-07-2023 10:26-0400 Blood Pressure Location Jamison TELLEZ [facility] 03-07-2023 10:26-0400 Body temperature 97.34 [degF] Jamison AMAROLE [facility] 03-07-2023 10:26-0400 Diastolic blood pressure 68 mm[Hg] Jamison AMAROLE [facility] 03-07-2023 10:26-0400 Heart rate 78 /min Jamison AMAROLE [facility] 03-07-2023 10:26-0400 Respiratory rate 16 /min Jamison TELLEZ [facility] 03-07-2023 10:26-0400 SaO2% (BldA) [Mass fraction] 100 % Jamison TELLEZ [facility] 03-07-2023 10:26-0400 Systolic blood pressure 118 mm[Hg] Jamison TELLEZ [facility] 02-26-2023 22:14-0400 Heart rate 80 /min Et3 [facility] 02-26-2023 22:13-0400 Diastolic blood pressure 77 mm[Hg] Et3 [facility] 02-26-2023 22:13-0400 SaO2% (BldA) [Mass fraction] 97 % Et3 [facility] 02-26-2023 22:13-0400 Systolic blood pressure 155 mm[Hg] Et3 Resource [facility] 02-25-2023 16:42-0400 Hourly Rounding Hasan AMIR [facility] 02-25-2023 16:42-0400 Promise to Return Hasan AMIR [facility] 02-25-2023 15:48-0400 Hourly Rounding Hasan AMIR [facility] 02-25-2023 15:48-0400 Promise to Return Hasan AMIR [facility] 02-25-2023 14:00-0400 Hourly Rounding Hasan AMIR [facility] 02-25-2023 14:00-0400 Promise to Return Hasan AMIR [facility] 02-25-2023 11:43-0400 Heart rate 94 /min Hasan AMIR [facility] 02-25-2023 11:43-0400 SaO2% (BldA) [Mass fraction] 96 % Hasan AMIR [facility] 02-25-2023 11:42-0400 Body temperature 97.34 [degF] Hasan AMIR [facility] 02-25-2023 11:42-0400 Diastolic blood pressure 80 mm[Hg] Hasan AMIR [facility] 02-25-2023 11:42-0400 Mean blood pressure 95 mm[Hg] Hasan AMIR [facility] 02-25-2023 11:42-0400 Systolic blood pressure 123 mm[Hg] Hasan AMIR [facility] 02-25-2023 07:42-0400 Heart rate 70 /min Hasan AMIR [facility] 02-25-2023 07:42-0400 SaO2% (BldA) [Mass fraction] 97 % Hasan AMIR [facility] 02-25-2023 07:00-0400 Blood Pressure Location Hasan AMIR [facility] 02-25-2023 07:00-0400 Body temperature 97.16 [degF] Hasan AMIR [facility] 02-25-2023 07:00-0400 Diastolic blood pressure 70 mm[Hg] Hasan AMIR [facility] 02-25-2023 07:00-0400 Heart rate 83 /min Hasan AMIR [facility] 02-25-2023 07:00-0400 Mean blood pressure 86 mm[Hg] Hasan AMIR [facility] 02-25-2023 07:00-0400 Respiratory rate 16 /min Hasan AMIR [facility] 02-25-2023 07:00-0400 Systolic blood pressure 118 mm[Hg] Hasan AMIR [facility] 02-25-2023 05:00-0400 Diastolic blood pressure 91 mm[Hg] Hasan AMIR [facility] 02-25-2023 05:00-0400 Mean blood pressure 107 mm[Hg] Hasan AMIR [facility] 02-25-2023 05:00-0400 Systolic blood pressure 138 mm[Hg] Hasan AMIR [facility] 02-24-2023 21:22-0400 Heart rate 93 /min Hasan AMIR [facility] 02-24-2023 21:20-0400 Mean blood pressure 111 mm[Hg] Hasan AMIR [facility] 02-24-2023 21:01-0400 Blood Pressure Location Hasan AMIR [facility] 02-24-2023 21:01-0400 Heart rate 93 /min Hasan AMIR [facility] 02-24-2023 21:01-0400 Respiratory rate 17 /min Hasan AMIR [facility] 02-24-2023 19:30-0400 Mean blood pressure 106 mm[Hg] Hasan AMIR [facility] 02-24-2023 19:30-0400 Respiratory rate 23 /min Hasan AMIR [facility] 02-24-2023 19:00-0400 Respiratory rate 24 /min Hasan AMIR [facility] 02-24-2023 18:33-0400 Respiratory rate 19 /min Hasan AMIR [facility] 02-24-2023 17:08-0400 gluc 152 mg/dL Hasan AMIR [facility] 02-24-2023 17:08-0400 gluc Hasan AMIR [facility] 12-13-2022 13:01-0400 Blood Pressure Location Jamison KAPLE [facility] 12-13-2022 13:01-0400 Body temperature 98.24 [degF] Jamison KAPLE [facility] 12-13-2022 13:01-0400 Diastolic blood pressure 70 mm[Hg] Jamison KAPLE [facility] 12-13-2022 13:01-0400 Heart rate 92 /min Jamison TELLEZ [facility] 12-13-2022 13:01-0400 Respiratory rate 18 /min Jamison AMAROLE [facility] 12-13-2022 13:01-0400 SaO2% (BldA) [Mass fraction] 96 % Jamison TELLEZ [facility] 12-13-2022 13:01-0400 Systolic blood pressure 122 mm[Hg] Jamison TELLEZ [facility] 11-27-2022 15:46-0500 Diastolic blood pressure 95 mm[Hg] [facility] 11-27-2022 15:46-0500 Heart rate 102 /min [facility] 11-27-2022 15:46-0500 Mean blood pressure 112 mm[Hg] [facility] 11-27-2022 15:46-0500 Respiratory rate 18 /min [facility] 11-27-2022 15:46-0500 SaO2% (BldA) [Mass fraction] 98 % [facility] 11-27-2022 15:46-0500 Systolic blood pressure 145 mm[Hg] [facility] 11-27-2022 14:00-0500 Diastolic blood pressure 108 mm[Hg] [facility] 11-27-2022 14:00-0500 Heart rate 98 /min [facility] 11-27-2022 14:00-0500 Mean blood pressure 115 mm[Hg] [facility] 11-27-2022 14:00-0500 Respiratory rate 19 /min [facility] 11-27-2022 14:00-0500 SaO2% (BldA) [Mass fraction] 96 % [facility] 11-27-2022 14:00-0500 Systolic blood pressure 128 mm[Hg] [facility] 11-27-2022 13:00-0500 Diastolic blood pressure 110 mm[Hg] [facility] 11-27-2022 13:00-0500 Heart rate 92 /min [facility] 11-27-2022 13:00-0500 Mean blood pressure 120 mm[Hg] [facility] 11-27-2022 13:00-0500 Respiratory rate 17 /min [facility] 11-27-2022 13:00-0500 Systolic blood pressure 140 mm[Hg] [facility] 11-27-2022 10:15-0500 Body temperature 98.24 [degF] [facility] 11-27-2022 10:15-0500 Heart rate 111 /min [facility] 11-27-2022 10:15-0500 Respiratory rate 20 /min [facility] 10-06-2022 14:20-0500 Blood Pressure Location Jamison PREMLE [facility] 10-06-2022 14:20-0500 Body temperature 97.88 [degF] Jamison KAPLE [facility] 10-06-2022 14:20-0500 Diastolic blood pressure 70 mm[Hg] Jamison KAPLE [facility] 10-06-2022 14:20-0500 Heart rate 62 /min Jamison KAPLE [facility] 10-06-2022 14:20-0500 Respiratory rate 18 /min Jamison KAPLE [facility] 10-06-2022 14:20-0500 SaO2% (BldA) [Mass fraction] 98 % Jamison KAPLE [facility] 10-06-2022 14:20-0500 Systolic blood pressure 120 mm[Hg] Jamison TELLEZ [facility] 07-04-2022 11:59-0400 Body height 177.8 cm Jamison Amarole Work Phone: [facility] 600 DO Work Phone: 07-04-2022 11:59-0400 Body mass index (BMI) [Ratio] 26.4 kg/m2 Jamison Amarole Work Phone: [facility] 600 DO Work Phone: 07-04-2022 11:59-0400 Body surface area Derived from formula 2.01 m2 Jamison Tellez Work Phone: [facility] 600 DO Work Phone: 07-04-2022 11:59-0400 Body weight 83.46 kg Jamison Tellez Work Phone: [facility] 600 DO Work Phone: 07-04-2022 11:59-0400 Diastolic blood pressure 64 mm[Hg] Jamison Tellez Work Phone: [facility] 600 DO Work Phone: 07-04-2022 11:59-0400 Heart rate 64 /min Jamison Amarole Work Phone: [facility] 600 DO Work Phone: 07-04-2022 11:59-0400 Systolic blood pressure 102 mm[Hg] Jamison Amarole Work Phone: [facility] 600 DO Work Phone: 05-25-2022 14:20-0400 Blood Pressure Location Martha Parson [facility] 05-25-2022 14:20-0400 Body temperature 97.52 [degF] Martha Parson [facility] 05-25-2022 14:20-0400 Diastolic blood pressure 68 mm[Hg] Martha Goncalvesell [facility] 05-25-2022 14:20-0400 Heart rate 71 /min Martha Parson [facility] 05-25-2022 14:20-0400 SaO2% (BldA) [Mass fraction] 97 % Martha Parson [facility] 05-25-2022 14:20-0400 Systolic blood pressure 126 mm[Hg] Martha Parson [facility] 05-16-2022 11:15-0400 Diastolic blood pressure 62 mm[Hg] Param Casanova [facility] 05-16-2022 11:15-0400 Heart rate 53 /min Param Treviñoe [facility] 05-16-2022 11:15-0400 Mean blood pressure 87 mm[Hg] Param Treviñoe [facility] 05-16-2022 11:15-0400 Respiratory rate 24 /min Param Treviñoe [facility] 05-16-2022 11:15-0400 SaO2% (BldA) [Mass fraction] 95 % Param Jocelyne [facility] 05-16-2022 11:15-0400 Systolic blood pressure 138 mm[Hg] Param Jocelyne [facility] 05-16-2022 11:00-0400 Respiratory rate 16 /min Param Treviñoe [facility] 05-16-2022 11:00-0400 SaO2% (BldA) [Mass fraction] 98 % Param Treviñoe [facility] 05-16-2022 10:33-0400 Diastolic blood pressure 65 mm[Hg] Param Treviñoe [facility] 05-16-2022 10:33-0400 Heart rate 56 /min Param Treviñoe [facility] 05-16-2022 10:33-0400 Mean blood pressure 87 mm[Hg] Param Treviñoe [facility] 05-16-2022 10:33-0400 Respiratory rate 14 /min Param Treviñoe [facility] 05-16-2022 10:33-0400 SaO2% (BldA) [Mass fraction] 97 % Param Treviñoe [facility] 05-16-2022 10:33-0400 Systolic blood pressure 132 mm[Hg] Param Treviñoe [facility] 05-16-2022 09:34-0400 Body temperature 98.24 [degF] Param Treviñoe [facility] 05-16-2022 09:34-0400 Diastolic blood pressure 56 mm[Hg] Param Treviñoe [facility] 05-16-2022 09:34-0400 Heart rate 54 /min Param Treviñoe [facility] 05-16-2022 09:34-0400 Respiratory rate 18 /min Param Treviñoe [facility] 05-16-2022 09:34-0400 Systolic blood pressure 137 mm[Hg] Param Treviñoe [facility] 01-19-2022 11:31-0400 Blood Pressure Location Jose Corley [facility] 01-19-2022 11:31-0400 Body temperature 98.96 [degF] [facility] 01-19-2022 11:31-0400 Diastolic blood [facility] 60 mm[facility]Hg[facility] 01-19-2022 11:31-0400 Heart rate 73 /min [facility] 01-19-2022 11:31-0400 SaO2% (BldA) [Mass fraction] 97 % [facility] 01-19-2022 11:31-0400 Systolic blood pressure 114 mm[Hg] [facility] 01-06-2022 13:47-0400 Blood Pressure Location Jamison KAPLE [facility] 01-06-2022 13:47-0400 Body temperature 97.88 [degF] Jamison KAPLE [facility] 01-06-2022 13:47-0400 Diastolic blood pressure 62 mm[Hg] Jamison KAPLE [facility] 01-06-2022 13:47-0400 Heart rate 63 /min Jamison KAPLE [facility] 01-06-2022 13:47-0400 Respiratory rate 16 /min Jamison KAPLE [facility] 01-06-2022 13:47-0400 SaO2% (BldA) [Mass fraction] 98 % Jamison PREMLE [facility] 01-06-2022 13:47-0400 Systolic blood pressure 128 mm[Hg] Jamison PREMLE [facility] 10-22-2021 12:03-0500 Diastolic blood pressure 60 mm[Hg] Jamison Aamrole Work Phone: [facility] 600 DO Work Phone: 10-22-2021 12:03-0500 Systolic blood pressure 136 mm[Hg] Jamison Amarole Work Phone: [facility] 600 DO Work Phone: 10-22-2021 11:36-0500 Body height 176.53 cm Jamison Amarole Work Phone: [facility] 600 DO Work Phone: 10-22-2021 11:36-0500 Body mass index (BMI) [Ratio] 26.46 kg/m2 [facility] Work Phone: 10-22-2021 11:36-0500 Body surface area Derived from formula 1.99 m2 Jamison Amarole Work Phone: [facility] 600 DO Work Phone: 10-22-2021 11:36-0500 Body weight 82.46 kg Jamison Campos Kaple Work Phone: [facility] 600 DO Work Phone: 10-22-2021 11:36-0500 Diastolic blood pressure 80 mm[Hg] Jamison Amarole Work Phone: [facility] 600 DO Work Phone: 10-22-2021 11:36-0500 Heart rate 62 /min Jamison A Kaple Work Phone: [facility] 600 DO Work Phone: 10-22-2021 11:36-0500 Systolic blood pressure 144 mm[Hg] Jamison A Premle Work Phone: [facility] 600 DO Work Phone: Encounters Encounter Date Encounter Type Care Provider Facility Start: 07-15-2025 ambulatory Jamison A GEOFF Facility: [facility] Start: 10-17-2024 ambulatory Jamison A PREMLE Facility: [facility] Start: 08-16-2024 ambulatory Jamison A KAPLE Facility: [facility] Start: 08-07-2024 End: 08-07-2024 ambulatory Daria C Bordner Facility:[facility] Start: 08-07-2024 End: 08-07-2024 Lab Drop off Daria C Bordner [facility] Start: 08-07-2024 End: 08-07-2024 ambulatory Daria C Bordner Facility:[facility] Start: 08-07-2024 End: 08-07-2024 Patient encounter procedure Daria C Bordner [facility] Start: 07-23-2024 End: 07-23-2024 ambulatory Daria C Bordner Facility:[facility] Start: 07-23-2024 End: 07-23-2024 Patient encounter procedure Daria C Bordner [facility] Start: 07-15-2024 End: 07-15-2024 ambulatory Jamison A GEOFF Facility:[facility] Start: 07-15-2024 End: 07-15-2024 Patient encounter procedure Jamison A GEOFF 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); Idiopathic progressive polyneuropathy; Onychomycosis; Infection of anterior lower leg; Pain of left lower extremity Start: 07-12-2024 End: 07-12-2024 ambulatory CATIE CALIXTO Not Available Start: 07-12-2024 End: 07-12-2024 Bamboo flowsheet Catie Calixto DPM Work Phone: [facility] Start: 07-12-2024 End: 07-12-2024 Bamboo flowsheet Catie Calixto DPM Work Phone: [facility] Start: 07-02-2024 End: 07-29-2024 ambulatory Jamison Beth GEOFF Facility:[facility] Start: 07-02-2024 End: 07-29-2024 Off-Site Jamison Beth GEOFF [facility] Start: 06-27-2024 End: 06-27-2024 Patient encounter procedure Ivone Jimenez DO Work Phone: [facility] Comment on above: Left shoulder pain, unspecified chronicity (Primary Dx) Start: 06-27-2024 End: 06-27-2024 ambulatory IVONE JIMENEZ Not Available Start: 05-31-2024 End: 05-31-2024 ambulatory JUANA BURLESON Facility:[facility] Start: 05-31-2024 End: 05-31-2024 Patient encounter procedure JUANA BURLESON [facility] Start: 05-23-2024 End: 05-23-2024 ambulatory Nakul C Link Facility:[facility] Start: 05-23-2024 End: 05-23-2024 Patient encounter procedure Nakul C Link [facility] Start: 05-20-2024 End: 05-20-2024 ambulatory Jose Corley Facility:[facility] Start: 05-20-2024 End: 05-20-2024 Patient encounter procedure Jose Corley [facility] Start: 05-16-2024 End: 05-16-2024 Patient encounter procedure Ivone Bull [facility] Start: 05-16-2024 End: 05-16-2024 ambulatory IVONE JIMENEZ Not Available Start: 05-15-2024 End: 05-15-2024 ambulatory Fidel Magdaleno Facility:[facility] Start: 05-15-2024 End: 05-15-2024 Patient encounter procedure Fidel Magdaleno [facility] Start: 05-09-2024 End: 05-09-2024 ambulatory KIERSTEN CURTIS Not Available Start: 05-06-2024 End: 05-06-2024 ambulatory LESTER ROCHE Not Available Start: 05-03-2024 End: 05-03-2024 ambulatory NEO ZURITA Not Available Start: 04-29-2024 End: 04-29-2024 ambulatory LESTER ROCHE Not Available Start: 04-22-2024 End: 04-22-2024 ambulatory KIERSTEN CURTIS Not Available Start: 04-17-2024 End: 04-17-2024 ambulatory CRISTI BOYLE Not Available Start: 04-13-2024 End: 04-13-2024 ambulatory FABIO BEARDEN Facility:[facility] Start: 04-13-2024 End: 04-13-2024 Patient encounter procedure FABIO BEARDEN [facility] Start: 04-12-2024 End: 04-12-2024 ambulatory Jamison TELLEZ Facility:[facility] Start: 04-12-2024 End: 04-12-2024 Off-Site Jamison A PREMLE [facility] Start: 04-10-2024 End: 04-10-2024 ambulatory KIERSTEN CURTIS Not Available Start: 04-03-2024 End: 04-03-2024 ambulatory IVONE JIMENEZ Not Available Start: 04-01-2024 End: 04-23-2024 ambulatory Jamison A KAPLE [facility] Start: 04-01-2024 End: 04-23-2024 Off-Site Jamison A KAPLE [facility] Start: 03-26-2024 End: 03-26-2024 ambulatory Jamison A KAPLE Facility:[facility] Start: 03-26-2024 End: 03-26-2024 Patient encounter procedure Jamison A KAPLE [facility] Start: 03-12-2024 ambulatory Jamison A KAPLE Facility: [facility] Start: 03-08-2024 End: 03-08-2024 ambulatory CATIE CALIXTO Not Available Start: 02-14-2024 End: 02-14-2024 ambulatory JUDI HERNANDEZ Not Available Start: 02-06-2024 End: 02-06-2024 ambulatory ATILIO Zaragoza [facility] Ambulatory Start: 02-06-2024 End: 02-06-2024 Office outpatient visit 25 minutes Atilio Evans MD Work Phone: [facility] Comment on above: Essential hypertensi on, benign (Primary Dx); Paroxysmal atrial fibrillation (Multi); Anticoagulated; Never smoked cigarettes Start: 01-31-2024 End: 01-31-2024 ambulatory JUDI Nolasco BOY Not Available Start: 01-31-2024 End: 03-01-2024 ambulatory Jamison TELLEZ Facility:[facility] Start: 01-31-2024 End: 03-01-2024 Off-Site Jamison TELLEZ [facility] Start: 01-28-2024 End: 01-28-2024 ambulatory Romeo Anedrs Facility:[facility] Start: 01-28-2024 End: 01-28-2024 Patient encounter procedure Romeo Anders [facility] Start: 01-07-2024 End: 01-07-2024 Emergency department patient visit Shantell Murphytunde [facility] Start: 01-04-2024 End: 01-04-2024 ambulatory CATIE CALIXTO Not Available Start: 12-27-2023 End: 12-27-2023 ambulatory JUDI Nolasco BOY Not Available Start: 12-19-2023 End: 12-19-2023 ambulatory Jamison TELLEZ Facility:[facility] Start: 12-19-2023 End: 12-19-2023 Patient encounter procedure Jamison TELLEZ [facility] Start: 12-01-2023 End: 12-26-2023 ambulatory Jamison TELLEZ Facility:[facility] Start: 12-01-2023 End: 12-26-2023 Off-Site Jamison TELLEZ [facility] Start: 11-20-2023 End: 11-20-2023 ambulatory Subha Noel Facility:[facility] Start: 11-20-2023 End: 11-20-2023 Patient encounter procedure Subha Noel [facility] Start: 11-16-2023 End: 11-16-2023 ambulatory Ivone Bull Facility:[facility] Start: 11-16-2023 End: 11-16-2023 Patient encounter procedure Ivone Kvng Ml [facility] Start: 11-13-2023 End: 11-13-2023 ambulatory Fidel PotterEj Rasta Facility:[facility] Start: 11-13-2023 End: 11-13-2023 Patient encounter procedure Fidel TariqEj Alonzoey [facility] Start: 11-10-2023 End: 11-10-2023 Follow-up encounter Judi Hernandez PA Work Phone: [facility] Comment on above: Skin tear of left lo wer leg without complication, subsequent encounter (Primary Dx) Start: 11-10-2023 End: 11-10-2023 ambulatory JUDI Constance HERNANDEZ Not Available Start: 11-06-2023 Telephone encounter Ton subramanian DO Work Phone: [facility] Start: 11-02-2023 End: 11-02-2023 Patient encounter procedure Catie Calixto DPM Work Phone: [facility] Comment on above: Idiopathic progressi ve polyneuropathy (Primary Dx); Onychomycosis Start: 11-02-2023 End: 11-02-2023 ambulatory CATIE CALIXTO Not Available Start: 10-30-2023 End: 10-30-2023 ambulatory JUDI Nolasco BOY Not Available Start: 10-29-2023 End: 10-29-2023 Emergency department patient visit Shantell Andujar [facility] Start: 10-05-2023 End: 11-30-2023 ambulatory Jamison TELLEZ Facility:[facility] Start: 10-02-2023 End: 10-27-2023 ambulatory Jamison TELLEZ Facility:[facility] Start: 10-02-2023 End: 10-27-2023 Off-Site Jamison TELLEZ [facility] Start: 09-21-2023 End: 09-21-2023 ambulatory ARMIN MORTON Not Available Start: 09-18-2023 End: 09-18-2023 ambulatory Jamisno TELLEZ Facility:[facility] Start: 09-18-2023 End: 09-18-2023 Patient encounter procedure Jamison TELLEZ [facility] Start: 09-06-2023 End: 09-06-2023 ambulatory Fidel Magdaleno Facility:[facility] Start: 09-06-2023 End: 09-06-2023 Patient encounter procedure Fidel Magdaleno [facility] Start: 08-17-2023 End: 08-17-2023 ambulatory CATIE CALIXTO Not Available Start: 08-02-2023 End: 08-22-2023 Off-Site Jamison TELLEZ [facility] Start: 07-12-2023 End: 07-12-2023 Patient encounter procedure Param CRAWFORD [facility] Start: 07-12-2023 End: 07-12-2023 Well adult monitoring check done Param CRAWFORD [facility] Start: 06-29-2023 Office outpatient vi sit 25 minutes Jamison Tellez Work Phone: [facility] 600 DO Work Phone: Start: 06-29-2023 Patient encounter procedure Jamison Tellez Work Phone: [facility] 600 DO Work Phone: Start: 06-29-[address] Atilio Evans II Facility: Start: 06-26-2023 End: 06-26-2023 Emergency department patient visit Param Casanova [facility] Start: 06-26-2023 End: 06-26-2023 Patient encounter procedure Fidel Magdaleno [facility] Start: 06-19-2023 End: 06-19-2023 Patient encounter procedure Jamison TELLEZ [facility] Start: 06-14-2023 End: 06-14-2023 Off-Site Jamison TELLEZ [facility] Start: 06-02-2023 End: 06-26-2023 Off-Site Jamison TELLEZ [facility] Start: 05-10-2023 Patient encounter procedure Jamison Tellez Work Phone: [facility] 600 DO Work Phone: Start: 05-10-[address] Atilio Evans II Facility: Start: 05-02-2023 Chart Update Jamison Tellez Work Phone: [facility] 250 DO Work Phone: Start: 05-01-2023 ambulatory Ms. Ej Green Facility:[id number] Start: 04-27-2023 Office outpatient vi sit 15 minutes Jamison Tellez [facility] Work Phone: Start: 04-27-2023 ambulatory Ms. Ej Green Facility: Start: 04-20-2023 Rx Renewal Jamison Tellez Work Phone: [facility] 250 DO Work Phone: Start: 04-06-2023 End: 04-06-2023 Patient encounter procedure Jamison TELLEZ [facility] Start: 04-02-2023 End: 04-02-2023 Emergency department patient visit Dmitry Austin [facility] Start: 04-01-2023 End: 04-26-2023 Off-Site Jamison TELLEZ [facility] Start: 03-31-[address] Jamison Lua ity: Start: 03-31-[address] Carmen Turner Facility: Start: 03-30-2023 Chart Update Jamison Tellez Work Phone: [facility] 250 DO Work Phone: Start: 03-30-[address] Atilio Evans II Facility: Start: 03-30-[address] Jamison Lua ity: Start: 03-16-2023 AUDIT Jamison Tellez Work Phone: [facility] 250 DO Work Phone: Start: 03-16-2023 Office outpatient vi sit 25 minutes Jamison Tellez Work Phone: [facility] 250 DO Work Phone: Start: 03-16-[address] Atilio Evans II Facility: Start: 03-07-2023 End: 03-07-2023 Patient encounter procedure Jamsion TELLEZ [facility] Start: 03-02-2023 End: 03-31-2023 Off-Site Jamison TELLEZ [facility] Start: 02-27-2023 End: 03-01-2023 ambulatory UNKNOWN PROVIDER Facility:[facility] Start: 02-26-2023 End: 02-26-2023 ambulatory Et3 Resource [facility] Emergenc y Triage, Treat and Transport Start: 02-26-2023 End: 02-26-2023 Emergency department patient visit [facility] Emergency Triage, Treat and Transport Comment on above: Arrived Start: 02-25-2023 Rx Change Jamison Tellez Work Phone: [facility] 250 DO Work Phone: Start: 02-25-[address] Atilio Evans II Facility: Start: 02-24-2023 End: 02-25-2023 Observation Jaime GRAF [facility] Start: 01-12-2023 End: 01-12-2023 Patient encounter procedure Param Zuniga [facility] Start: 12-22-2022 End: 12-22-2022 Patient encounter procedure Param Zuniga [facility] Start: 12-13-2022 End: 12-13-2022 Patient encounter procedure Jamison TELLEZ [facility] Start: 12-08-2022 Rx Renewal Jamison Tellez Work Phone: [facility] 250 DO Work Phone: Start: 12-08-2022 End: 12-08-2022 Patient encounter procedure Param Zuniga [facility] Start: 12-01-2022 End: 12-01-2022 Patient encounter procedure Param Zuniga [facility] Start: 11-27-2022 Rx Renewal Jamison Tellez Work Phone: [facility] 250 DO Work Phone: Start: 11-27-2022 End: 11-27-2022 Emergency department patient visit Shantell Andujar [facility] Start: 11-02-2022 End: 11-23-2022 Off-Site Jamison TELLEZ [facility] Start: 10-21-2022 End: 01-19-2023 Recurring Ivone Jimenez [facility] Start: 10-06-2022 End: 10-06-2022 Patient encounter procedure Jamison TELLEZ [facility] Start: 10-02-2022 End: 10-28-2022 Off-Site Jamison TELLEZ [facility] Start: 07-04-2022 Office outpatient vi sit 25 minutes Jamison Tellez [facility] Work Phone: Start: 06-02-2022 End: 06-30-2022 Off-Site Jamison TELLEZ [facility] Start: 05-25-2022 End: 05-25-2022 Patient encounter procedure Martha Parson [facility] Start: 05-16-2022 End: 05-16-2022 Emergency department patient visit Param Casanova [facility] Start: 01-19-2022 End: 01-19-2022 Patient encounter procedure Jose Corley [facility] Start: 01-06-2022 End: 01-06-2022 Patient encounter procedure Jamison TELLEZ [facility] Start: 01-04-2022 End: 01-04-2022 Patient encounter procedure Jamison TELLEZ [facility] Start: 11-01-2021 Rx Renewal Jamison Tellez Work Phone: [facility] 250 DO Work Phone: Start: 10-22-2021 Office outpatient vi sit 25 minutes Jamiosn Tellez [facility] 600 DO Work Phone: Start: 11-20-2018 Patient encounter procedure EJ GREEN Facility:[id number] Start: 10-24-2018 Patient encounter procedure EJ GREEN Facility:[id number] Procedures Date Procedure Procedure Detail Performing Clinician Start: 02-06-2024 ECG 12-LEAD ATILIO SCHAEFER Start: 02-06-2024 Ecg routine ecg w/le ast 12 lds w/i&r Atilio Evans MD Work Phone: Start: 03-30-2023 Cardioversion Jamison STEWART Start: 02-02-2016 Left Total Hip Arthroplasty Jamison TELLEZ bilateral cataract implants Jamison TELLEZ Cardiac catheterization Juan M Tellez Work Phone: Cardioversion Jamison Tellez Work Phone: Cholecystectomy Jamison Beth Amaroronaldo e Work Phone: Decompression of med avelnio nerve Jamison TELLEZ Stephany fundoplication Jamison TELLEZ Operative procedure on knee Jamison Tellez Work Phone: skin cancer removed Jamison BURGESS PLE stomach surgery Jamison TELLEZ Total colonoscopy Jamison Burgess ple Work Phone: Transurethral prostatectomy Jamison TELLEZ Plan of Treatment Date Care Activity Detail Author Start: 08-04-2031 DTaP/Tdap/Td Vaccine s (3 - Td or Tdap) DTaP/Tdap/Td Vaccines (3 - Td or Tdap) [facility] Start: 02-05-2025 End: 02-05-2025 Patient encounter procedure 02/05/2025 10:00 AM EDT Office Visit [facility] [address] [facility] [address] [place] [address] Ej Green, ROAD CUTTER-AIRPLANE CLEANER [address] [facility], [address] [place] [address] [facility] Start: 11-11-2024 End: 11-11-2024 Patient encounter procedure 11/11/2024 1:45 PM EST Procedure Visit [facility] [address] [facility] [place] [phone] Catie Calixto, DPM [address] [place] [address] [facility] Start: 07-12-2024 End: 07-12-2024 Patient encounter procedure [facility] Comment on above: Arrived Start: 06-02-2024 Influenza vaccination Influenza Vacc ine (#1) [facility] Start: 01-04-2024 End: 01-04-2024 Patient encounter procedure 01/04/2024 2:00 PM EDT Procedure Visit [facility] [address] [place] [phone] Catie Calixto, DPM [address] [place] [address] [facility] Start: 12-27-2023 COVID-19 Vaccine ( season) COVID-19 Vaccine ( season) [facility] Start: 11-13-2023 End: 11-13-2023 Patient encounter procedure 11/13/2023 2:00 PM EST [facility] [address] [place] [id number] Judi Hernandez PA [address] [place] [address] [facility] Start: 07-25-2023 FUV, Provider: Atilio Evans, Status: Luis Angel, Time: 10:10 AM FUV, Provider: Atilio Evans, Status: Luis Angle, Time: 10:10 AM [facility] 600 DO Work Phone: Start: 06-29-2023 FUV, Provider: Atilio Evans, Status: Luis Angel, Time: 11:50 AM FUV, Provider: Atilio Evans, Status: Luis Angel, Time: 11:50 AM [facility] 600 DO Work Phone: Start: 05-02-2023 EVENT LUIS, Provider : TRINITY REVELES MALT HOUSE LOADER 1,[id number], Status: Pen, Time: 1:30 PM EVENT LUIS, Provider: TRINITY REVELES MALT HOUSE LOADER 1,[id number], Status: Pen, Time: 1:30 PM [facility] 600 DO Work Phone: Start: 05-01-2023 STRESS NUC, Provider : JORGE LUIS HHVI NUCLEAR 01,[id number], Status: Pen, Time: 12:30 PM STRESS NUC, Provider: JORGE LUIS HHVI NUCLEAR 01,[id number], Status: Pen, Time: 12:30 PM [facility] 600 DO Work Phone: Start: 04-27-2023 FUV, Provider: Ej Alcaraz, Status: Pen, Time: 1:00 PM FUV, Provider: Ej Alcaraz, Status: Pen, Time: 1:00 PM [facility] 250 DO Work Phone: Start: 04-19-2023 FUV, Provider: Atilio Evans, Status: Pen, Time: 12:50 PM FUV, Provider: Atilio Evans, Status: Pen, Time: 12:50 PM [facility] 250 DO Work Phone: Start: 03-30-2023 SURGNONUH, Provider: Atilio Evans, Status: Pen, Time: 9:00 AM SURGNONUH, Provider: Atilio Evans, Status: Pen, Time: 9:00 AM [facility] 250 DO Work Phone: Start: 07-27-2022 FUV, Provider: Atilio Evans, Status: Pen, Time: 11:00 AM FUV, Provider: Atilio Evans, Status: Pen, Time: 11:00 AM [facility] 600 DO Work Phone: Start: 08-31-2016 Zoster Vaccines (2 o f 3) Zoster Vaccines (2 of 3) [facility] Start: 12-25-2003 Pneumococcal vaccination Pneumococcal Vaccine(s) (65+ yrs) (1 - PCV) [facility] Start: 1998 RSV patient s and/or patients aged 60+ years (1 - 1-dose 60+ series) RSV patients and/or patients aged 60+ years (1 - 1-dose 60+ series) [facility] Start: 1988 Shingles (RZV) Vacci ne (1 of 2) Shingles (RZV) Vaccine (1 of 2) [facility] Start: 1956 Diabetes mellitus screening Diabetes Screening [facility] Start: 1956 Tetanus + diphtheria + acellular pertussis vaccine (product) Tdap Booster [facility] Start: 06-26-1939 COVID-19 Vaccine (#1) COVID-19 Vacci ne (#1) [facility] Start: 1938 Lipid panel Lipid Panel [facility] Start: 1938 Medicare Annual Wellness Visit Medicare Annual Wellness Visit (AWV) [facility] Immunizations Immunization Date Immunization Notes Care Provider Fa cili 07-02-2024 influenza virus vaccine, unspecified formulation Catie TINOCOM Work Phone: [facility] 06-22-2023 Fluzone High-Dose Quadrivalent 0.7 ML Intramuscular Suspension Prefilled Syringe Jamison Tellez Work Phone: [facility] 600 DO Work Phone: 06-22-2023 influenza virus vaccine, unspecified formulation Fidel Magdaleno [facility] 07-22-2022 influenza, high dose seasonal, preservative-free Jamison TELLEZ [facility] 07-05-2022 SARS-CoV-2 (COVID-19 ) [id number] Jamison TELLEZ [facility] 05-10-2022 Moderna COVID-19 Vaccine 100 MCG/0.5ML Intramuscular Suspension Jamison Tellez Work Phone: [facility] 10-22-2021 Moderna SARS-CoV-2 Vaccination Atilio Evans MD Work Phone: [facility] Work Phone: 08-04-2021 Moderna COVID-19 Vaccine 100 MCG/0.5ML Intramuscular Suspension; Translations: [SARS-CoV-2 (COVID-19) [id number] vaccine] Jamison Tellez Work Phone: [facility] 600 DO Work Phone: 08-04-2021 tetanus toxoid, redu roge diphtheria toxoid, and acellular pertussis vaccine, adsorbed; Translations: [Boostrix (Tdap)] Jamison Tellez Work Phone: [facility] 600 DO Work Phone: 06-15-2021 influenza, high dose seasonal, preservative-free Jamison Tellez Work Phone: [facility] 600 DO Work Phone: 11-24-2020 Moderna COVID-19 Vaccine 100 MCG/0.5ML Intramuscular Suspension; Translations: [Moderna COVID-19 Vaccine] Jamison Tellez Work Phone: [facility] 600 DO Work Phone: 10-24-2020 Moderna COVID-19 Vaccine 100 MCG/0.5ML Intramuscular Suspension; Translations: [Moderna COVID-19 Vaccine] Jamison Tellez Work Phone: [facility] 600 DO Work Phone: Comment on above: Reason for Medicatio n: Other (see comment) Reason for Medicatio n: Other (see comment) 07-17-2020 influenza virus vaccine, unspecified formulation Jamison TELLEZ [facility] 07-17-2020 influenza, high dose seasonal, preservative-free Jamison Tellez Work Phone: [facility] 600 DO Work Phone: 07-06-2019 influenza virus vaccine, unspecified formulation Jamison TELLEZ [facility] 07-06-2019 influenza, high dose seasonal, preservative-free Atilio Evans MD Work Phone: [facility] Work Phone: 07-02-2019 influenza virus vaccine, unspecified formulation Jamison Tellez Work Phone: [facility] 600 DO Work Phone: 10-19-2018 pneumococcal conjuga te vaccine, 13 valent Jamison Tellez Work Phone: [facility] 07-10-2018 influenza virus vaccine, unspecified formulation Jamison TELLEZ [facility] 07-10-2018 Seasonal trivalent influenza vaccine, adjuvanted, preservative free Jamison Tellez Work Phone: [facility] 600 DO Work Phone: 07-04-2018 influenza virus vaccine, unspecified formulation Jamison TELLEZ [facility] 07-02-2018 influenza virus vaccine, unspecified formulation Jamison Tellez Work Phone: [facility] 600 DO Work Phone: 03-15-2018 tetanus toxoid, redu roge diphtheria toxoid, and acellular pertussis vaccine, adsorbed Jamison Tellez Work Phone: [facility] 07-10-2017 influenza virus vaccine, unspecified formulation Jamison TELLEZ [facility] 07-10-2017 Seasonal trivalent influenza vaccine, adjuvanted, preservative free Atilio Evans MD Work Phone: [facility] Work Phone: 07-04-2017 influenza, high dose seasonal, preservative-free Jamison Campos Geoff Work Phone: [facility] 600 DO Work Phone: 07-04-2017 pneumococcal conjuga te vaccine, 13 valent Jamison Campos Kapkarma Work Phone: [facility] 600 DO Work Phone: 08-02-2016 influenza virus vaccine, unspecified formulation Jamison GEOFF [facility] 08-02-2016 influenza, high dose seasonal, preservative-free Jamison Campos Geoff Work Phone: [place] [address] DO Work Phone: 07-22-2016 influenza virus vaccine, unspecified formulation Jamison GEOFF [facility] 07-22-2016 influenza, injectabl e, quadrivalent, preservative free Jamison Campos Geoff Work Phone: [facility] 600 DO Work Phone: 07-21-2016 pneumococcal polysaccharide vaccine, 23 valent Jamison Tellez Work Phone: [facility] 07-06-2016 zoster vaccine, live Jamison Tellez Work Phone: [facility] 07-02-2016 influenza virus vaccine, unspecified formulation Jamison Campos Kapkarma Work Phone: [facility] 600 DO Work Phone: 07-08-2015 pneumococcal polysaccharide vaccine, 23 valent Jamison Tellez Work Phone: [facility] 07-01-2015 influenza virus vaccine, unspecified formulation Jamison TELLEZ [facility] 07-01-2015 influenza, high dose seasonal, preservative-free Jamison Campos Kaple Work Phone: [facility] 600 DO Work Phone: 10-02-2014 pneumococcal polysaccharide vaccine, 23 valent Jamison Beth Kaple Work Phone: [facility] 600 DO Work Phone: 07-18-2014 influenza virus vaccine, unspecified formulation Jamison KAPLE [facility] 07-18-2014 influenza, seasonal, injectable Jamison Campos Kapkarma [facility]: [facility] 600 DO Work Phone: 07-17-2013 pneumococcal polysaccharide vaccine, 23 valent Jamison Campos Kaple Work Phone: [facility] 07-10-2013 influenza virus vaccine, unspecified formulation Jamison KAPLE [facility] 07-10-2013 influenza, seasonal, injectable Jamison Campos Kapkarma [facility] 600 DO Work Phone: 05-23-2013 zoster vaccine, live Jamison Campos Kaple Work Phone: [facility] 07-26-2012 pneumococcal polysaccharide vaccine, 23 valent Jamison AMAROLE [facility] 09-15-2009 novel [id number], preservative-free, injectable Jamison Campos Kaple Work Phone: [facility] [employer] DO Work Phone: Payers Date Payer Category Payer Private Health Insurance [employer] [id number] 2022 Unknown 2022 Unknown [id number] 2003 Medicare [id number]. [id number] 2003 Medicare [id number] 1938 Unknown [id number] 2.0.1.725331.3.579.2. 355 1938 Unknown [id number] 2.0.1.454559.3.579.2. 355 1938 Unknown [id number] 2.840.1.294048.3.579.2. 732 1938 Unknown [id number] 2.0.1.701035.3.579.2. 1068 1938 Unknown [id number] 2.840.1.683686.3.579.2. 356 1938 Unknown [id number] 2.840.1.816348.3.579.2. 356 1938 Unknown [id number] 2.840.1.020711.3.579.2. 356 1938 Unknown [id number] 2.0.1.998140.3.579.2. 356 1938 Unknown [id number] 2.840.1.576990.3.579.2. 356 1938 Unknown [id number] 2.840.1.713695.3.579.2. 356 1938 Unknown [id number] 2.840.1.628474.3.579.2. 356 1938 Unknown [id number] 2.16.840.1.045452.3.579.2. 356 1938 Unknown [id number] 2.16.840.1.535063.3.579.2. 356 1938 Unknown [id number] 2.16.840.1.451406.3.579.2. 1244 1938 Unknown [id number] 2.16.840.1.529263.3.579.2. 125 1938 Unknown [id number] 2..840.1.691465.3.579.2. 1258 1938 Unknown [id number] 2.840.1.370978.3.579.2. 1258 1938 Unknown [id number] 2.840.1.563788.3.579.2. 1258 1938 Unknown [id number] 2.840.1.099071.3.579.2. 125 1938 Unknown [id number] 2.840.1.215412.3.579.2. 1258 1938 Unknown [id number] 2.840.1.704555.3.579.2. 125 1938 Unknown [id number] 2.840.1.425541.3.579.2. 125 1938 Unknown [id number] 2.840.1.094293.3.579.2. 125 1938 Unknown [id number] 2.840.1.505382.3.579.2. 125 1938 Unknown [id number] 2.16.840.1.856158.3.579.2. 125 1938 Unknown [id number] 2.840.1.145736.3.579.2. 125 1938 Unknown [id number] 2.16.840.1.905462.3.579.2. 1259 1938 Unknown [id number] 2.16.840.1.196494.3.579.2. 125 1938 Unknown [id number] 2.16.840.1.299116.3.579.2. 125 1938 Unknown [id number] 2.16.840.1.692880.3.579.2. 125 1938 Unknown [id number] 2.16.840.1.532026.3.579.2. 125 1938 Unknown [id number] 2.16.840.1.139461.3.579.2. 125 1938 Unknown [id number] 2.16.840.1.857281.3.579.2. 125 1938 Unknown [id number] 2.16.840.1.696043.3.579.2. 125 1938 Unknown [id number] 2.16.840.1.182472.3.579.2. 125 1938 Unknown [id number] 2.16.840.1.529744.3.579.2. 125 1938 Unknown [id number] 2.16.840.1.404664.3.579.2. 125 1938 Unknown [id number] 2.16.840.1.579883.3.579.2. 125 1938 Unknown [id number] 2.16.840.1.951478.3.579.2. 125 1938 Unknown [id number] 2.16.840.1.138992.3.579.2. 727 1938 Unknown [id number] 2.16.840.1.274755.3.579.2. 727 1938 Unknown [id number] 2.16.840.1.701942.3.579.2. 727 1938 Unknown [id number] 2.16.840.1.969712.3.579.2. 72 1938 Unknown [id number] 2.16.840.1.080281.3.579.2 1938 Unknown [id number] 2.16.840.1.504824.3.579.2 1938 Unknown [id number] 2.16.840.1.702540.3.579.2 1938 Unknown [id number] 2.16.840.1.197505.3.579.2 1938 Unknown [id number] 2.16.840.1.062473.3.579.2 1938 Unknown [id number] 2.16.840.1.744873.3.579.2 1938 Unknown [id number] 2.16.840.1.307016.3.579.2 1938 Unknown [id number] 2.16.840.1.389610.3.579.2 1938 Unknown [id number] 2.16.840.1.643769.3.579.2 1938 Unknown [id number] 2.16.840.1.395145.3.579.2 1938 Unknown [id number] 2.16.840.1.545290.3.579.2 72 1938 Unknown [id number] 2.16.840.1.515646.3.579.2 1938 Unknown [id number] 2.16.840.1.144194.3.579.2 72 1938 Unknown [id number] 2.16.840.1.689000.3.579.2 1938 Unknown [id number] 2.16.840.1.627321.3.579.2. 1938 Unknown [id number] 2.16.840.1.511074.3.579.2 1938 Unknown [id number] 2.16.840.1.501892.3.579.2 1938 Unknown [id number] 2.16.840.1.064498.3.579.2 1938 Unknown [id number] 2.16.840.1.382602.3.579.2 1938 Unknown [id number] 2.16840.1.427473.3.579.2 1938 Unknown [id number] 2.16840.1.038836.3.579.2 1938 Unknown [id number] 2.16840.1.213516.3.579.2 1938 Unknown [id number] 2.16840.1.524879.3.579.2 1938 Unknown [id number] 2.16840.1.943451.3.579.2 1938 Unknown [id number] 2.16840.1.132826.3.579.2 1938 Unknown [id number] 2.16840.1.979272.3.579.2 1938 Unknown [id number] 2.16.840.1.394360.3.579.2 1938 Unknown [id number] 2.16840.1.892772.3.579.2 1938 Unknown [id number] 2.16.840.1.332497.3.579.2 1938 Unknown [id number] 2.16.840.1.453640.3.579.2. 727 1938 Unknown [id number] 2.16.840.1.561222.3.579.2. 727 1938 Unknown [id number] 2.16.840.1.344831.3.579.2. 727 Unknown [id number] Social History Date Type Detail Facility Start: 11-02-2023 End: 07-12-2024 Caffeine use Caffeine use [facility] 600 DO Work Phone: Comment on above: decaf; Start: 07-16-2021 End: 08-07-2024 Tobacco smoking status Never smoked tobacco (finding) [facility] Comment on above: denies use Start: 11-02-2023 End: 07-12-2024 Sex Assigned At Male [facility] Tobacco smoking status Never [facility] Comment on above: denies use Tobacco smoking status [facility] Tobacco smoking consumption unknown [facility] Start: 1940 Sex Assigned At Not on file [facility] Start: 04-17-2023 End: 02-06-2024 Tobacco use and exposure Smokeless tobacco non-user [facility] Start: 11-02-2023 End: 07-12-2024 Alcohol intake Lifetime non-drinker (finding) [facility] Start: 01-27-2024 End: 02-06-2024 Exposure to SARS-CoV-2 (event) Not sure [facility] Goals Date Patient Goal Desired Activity /State 06-23-2022 Functional Status Date Assessment Result Facility 08-07-2024 Functional Status N/A [facility] 07-23-2024 Functional Status N/A [facility] 07-15-2024 Functional Status N/A [facility] 07-15-2024 Functional Status N/A [facility] 05-31-2024 Functional Status N/A [facility] 05-20-2024 Functional Status N/A [facility] 05-16-2024 Functional Status N/A [facility] 04-13-2024 Functional Status N/A [facility] 03-26-2024 Functional Status N/A [facility] 01-28-2024 Functional Status N/A [facility] 01-07-2024 Functional Status N/A [facility] 12-19-2023 Functional Status N/A [facility] 11-20-2023 Functional Status N/A [facility] 11-16-2023 Functional Status N/A [facility] 11-13-2023 Functional Status N/A [facility] 10-29-2023 Functional Status N/A [facility] 09-18-2023 Functional Status N/A [facility] 09-06-2023 Functional Status N/A [facility] 07-12-2023 Functional Status N/A [facility] 06-26-2023 Functional Status N/A [facility] 06-19-2023 Functional Status N/A [facility] 04-06-2023 Functional Status N/A [facility] 04-02-2023 Functional Status N/A [facility] 03-07-2023 Functional Status N/A [facility] 02-24-2023 Functional Status No [facility] 02-24-2023 Functional Status [facility] 12-13-2022 Functional Status N/A [facility] 11-27-2022 Functional Status N/A [facility] 10-06-2022 Functional Status N/A [facility] 05-25-2022 Functional Status N/A [facility] 05-16-2022 N/A [facility] Clinical Notes 01-06-2022 to 08-09-2024 Catie Calixto DPM - 07/12/2024 3:15 PM Prema Felix - 06/27/2024 1:00 PM Fortino Evans MD - 02/06/2024 9:40 AM EDTPatient Instructions Note Date & Type Note Facility 08-09-2024 Note Progress Note-Nurse Pt called convenient care questioning how he should wash his leg. Per PEEWEE Aleln pt is to wash his leg with soap and water. Pt states that he has a follow up appointment with Dr. Tellez in one week. [facility] 08-07-2024 Hospital Discharge instructions Patient Education 08/07/2024 19:03:18 Venous Ulcer, Nbyj-mo-Scyb Venous Ulcer A venous ulcer is a shallow sore on your lower leg. Venous ulcer is the most common type of lower leg ulcer. You may have venous ulcers on one leg or on both legs. This condition most often develops around your ankles. This type of ulcer may last for a long time (chronic ulcer) or it may return often (recurrent ulcer). What are the causes? This condition is caused by poor blood flow in your legs. The poor flow causes blood to pool in your legs. This can break the skin, causing an ulcer. What increases the risk? You are more likely to develop this condition if: You are female. You are 55 years of age or older. You have had a leg ulcer in the past. You have varicose veins. You have clots in your lower leg veins (deep vein thrombosis). You have irritation and swelling (inflammation) of your leg veins (phlebitis). You have recently been . You have a family history of chronic venous insufficiency. This is a condition where the leg veins do not pump enough blood from the legs to the heart. Your risk may be higher if: You are not active. You are overweight. You smoke. What are the signs or symptoms? The main symptom of this condition is an open sore near your ankle. Other symptoms may include: Swelling. Fluid coming from the ulcer. Bleeding. Itching. Pain and swelling. This gets worse when you stand up and feels better when you raise your leg. Changes in the skin, such as: ?Thick skin. ?Blotchy skin. ?Dark skin. How is this treated? Treatments include: Keeping your leg raised (elevated). Wearing a type of bandage or stocking to keep pressure (compression) on the veins of your leg. Taking medicines, including antibiotic medicines. Cleaning your ulcer and removing any tissue from the wound. Using bandages and wraps that have medicines in them to cover your ulcer. Closing the wound using a piece of skin taken from another area of your body (graft). Healing may take a long time. You may need to see a foot doctor or a vein specialist. Follow these instructions at home: Medicines Take or apply ngqa-ndl-ismghey and prescription medicines only as told by your doctor. If you were prescribed antibiotics, take them as told by your doctor. Do not stop taking them even if you start to feel better. Ask your doctor if you should take aspirin before long trips. Wound care Follow instructions from your doctor about how to take care of your wound. Make sure you: ?Wash your hands with soap and water for at least 20 seconds before and after you change your bandage. If you cannot use soap and water, use hand electrical equipment assembler. ?Change your bandage. ?Leave stitches or skin glue in place for at least 2 weeks. ?Leave tape strips alone unless you are told to take them off. You may trim the edges of the tape strips if they curl up. Ask when you should remove your bandage. If your bandage is dry and sticks to your leg when you try to remove it, moisten or wet the bandage with saline solution or water alone to make it easier to remove. Check your wound every day for signs of infection. Have a caregiver do this for you if you are not able to do it yourself. Check for: ?More redness, swelling, or pain. ?More fluid or blood. ?Warmth. ?Pus or a bad smell. Activity Get up to take short walks every 1 to 2 hours. Ask for help if you feel weak or unsteady. Rest with your legs raised during the day. If you can, keep your legs above the level of your heart for 30 minutes, 3 4 times a day, or as told by your doctor. Do not sit with your legs crossed. Return to your normal activities when your doctor says that it is safe. General instructions Wear elastic stockings, compression stockings, or support hose as told by your doctor. Raise the foot of your bed as told by your doctor. Do not smoke or use any products that contain nicotine or tobacco. If you need help quitting, ask your doctor. Try to eat a heart healthy and low salt diet. Keep a healthy body weight. Keep all follow-up visits. Your doctor will check if your ulcer is healing and change treatments if needed. Contact a doctor if: Your ulcer is getting larger or is not healing. Your pain gets worse. You have any signs of infection. You have a fever. This information is not intended to replace advice given to you by your health care provider. Make sure you discuss any questions you have with your health care provider. Document Revised: 05/08/2023 Document Reviewed: 05/08/2023 [employer] Patient Education 2023 [employer]. 08/07/2024 19:03:15 Chronic Venous Insufficiency Chronic Venous Insufficiency Chronic venous insufficiency is a condition that causes the veins in the legs to struggle to pump blood from the legs to the heart. It is also called venous stasis. This condition can happen when the vein cage are stretched, weakened, or damaged. It can also happen when the valves inside the vein are damaged. With the right treatment, you should be able to still lead an active life. What are the causes? Common causes of this condition include: Venous hypertension. This is high blood pressure inside the veins. Sitting or standing too long. This can cause increased blood pressure in the veins of the leg. Deep vein thrombosis (DVT). This is a blood clot that blocks blood flow in a vein. Phlebitis. This is inflammation of a vein. It can cause a blood clot to form. An abnormal growth of cells (tumor) in the area between your hip bones (pelvis). This can cause blood to back up. What increases the risk? Factors that may make you more likely to get this condition include: Having a family history of the condition. Being overweight. Being . Not getting enough exercise. Smoking. Having a job that requires you to sit or machine compositor one place for a long time. Being a certain age. Females in their 40s and 50s and males in their 70s are more likely to get this condition. What are the signs or symptoms? Symptoms of this condition include: Varicose veins. These are veins that are enlarged, bulging, or twisted. Skin breakdown or ulcers. Reddened skin or dark discoloration of the skin on the leg between the knee and ankle. Lipodermatosclerosis. This is brown, smooth, tight, and painful skin just above the ankle. It is often on the inside of the leg. Swelling of the legs. How is this diagnosed? This condition may be diagnosed based on your medical history and a physical exam. You may also need tests, such as: A duplex ultrasound. This shows how blood flows through a blood vessel. Plethysmography. This tests blood flow. Venogram. This looks at the veins using an X-ray and dye. How is this treated? The goals of treatment are to help you return to an active life and to relieve pain. Treatment may include: Wearing compression stockings. These do not cure the condition but can help relieve symptoms. They can also help stop your condition from getting worse. Sclerotherapy. This involves injecting a solution to shrink damaged veins. Surgery. This may include: ?Vein stripping. This is when a diseased vein is taken out. ?Laser ablation surgery. This is when blood flow is cut off through the vein. ?Repairing or remaking a valve inside the affected vein. Follow these instructions at home: Lifestyle Do not use any products that contain nicotine or tobacco. These products include cigarettes, chewing tobacco, and vaping devices, such as e-cigarettes. If you need help quitting, ask your health care provider. Stay active. Exercise, walk, or do other activities. Ask your provider what activities are safe for you. General instructions Take usqa-rpw-gbqaqtv and prescription medicines only as told by your provider. Drink enough fluid to keep your pee (urine) pale yellow. Wear compression stockings as told by your provider. These stockings help to prevent blood clots and reduce swelling in your legs. Keep all follow-up visits. Your provider will check your legs for any changes and adjust your treatment plan as needed. Contact a health care provider if: You have redness, swelling, or more pain in the affected area. You see a red streak or line that goes up or down from the area. You have skin breakdown or skin loss. You get an injury in the affected area. You get a fever. Get help right away if: You have severe pain that does not get better with medicine. You get an injury and an open wound in the affected area. Your foot or ankle becomes numb or weak all of a sudden. You have trouble moving your foot or ankle. Your symptoms do not go away or get worse. You have chest pain. You have shortness of breath. These symptoms may be an emergency. Get help right away. Call 911. Do not wait to see if the symptoms will go away. Do not drive yourself to the hospital. This information is not intended to replace advice given to you by your health care provider. Make sure you discuss any questions you have with your health care provider. Document Revised: 10/03/2023 Document Reviewed: 10/03/2023 [employer] Patient Education 2023 [employer]. Follow Up Care 08/07/2024 10:10:53 With:GEOFF PINTO FAAFP, Jamison Campso, VARINDER, PED Address: [address], [place] [address]- When: Unknown [facility] 08-07-2024 Note Patient Education Cardiovascular Chronic Venous Insufficiency Chronic venous insufficiency is a condition that causes the veins in the legs to struggle to pump blood from the legs to the heart. It is also called venous stasis. This condition can happen when the vein cage are stretched, weakened, or damaged. It can also happen when the valves inside the vein are damaged. With the right treatment, you should be able to still lead an active life. What are the causes? Common causes of this condition include: ??? Venous hypertension. This is high blood pressure inside the veins. ??? Sitting or standing too long. This can cause increased blood pressure in the veins of the leg. ??? Deep vein thrombosis (DVT). This is a blood clot that blocks blood flow in a vein. ??? Phlebitis. This is inflammation of a vein. It can cause a blood clot to form. ??? An abnormal growth of cells (tumor) in the area between your hip bones (pelvis). This can cause blood to back up. What increases the risk? Factors that may make you more likely to get this condition include: ??? Having a family history of the condition. ??? Being overweight. ??? Being . ??? Not getting enough exercise. ??? Smoking. ??? Having a job that requires you to sit or machine compositor one place for a long time. ??? Being a certain age. Females in their 40s and 50s and males in their 70s are more likely to get this condition. What are the signs or symptoms? Symptoms of this condition include: ??? Varicose veins. These are veins that are enlarged, bulging, or twisted. ??? Skin breakdown or ulcers. ??? Reddened skin or dark discoloration of the skin on the leg between the knee and ankle. ??? Lipodermatosclerosis. This is brown, smooth, tight, and painful skin just above the ankle. It is often on the inside of the leg. ??? Swelling of the legs. How is this diagnosed? This condition may be diagnosed based on your medical history and a physical exam. You may also need tests, such as: ??? A duplex ultrasound. This shows how blood flows through a blood vessel. ??? Plethysmography. This tests blood flow. ??? Venogram. This looks at the veins using an X-ray and dye. How is this treated? The goals of treatment are to help you return to an active life and to relieve pain. Treatment may include: ??? Wearing compression stockings. These do not cure the condition but can help relieve symptoms. They can also help stop your condition from getting worse. ??? Sclerotherapy. This involves injecting a solution to shrink damaged veins. ??? Surgery. This may include: ? Vein stripping. This is when a diseased vein is taken out. ? Laser ablation surgery. This is when blood flow is cut off through the vein. ? Repairing or remaking a valve inside the affected vein. Follow these instructions at home: Lifestyle ??? Do not use any products that contain nicotine or tobacco. These products include cigarettes, chewing tobacco, and vaping devices, such as e-cigarettes. If you need help quitting, ask your health care provider. ??? Stay active. Exercise, walk, or do other activities. Ask your provider what activities are safe for you. General instructions ??? Take agxa-zdm-aqjtivf and prescription medicines only as told by your provider. ??? Drink enough fluid to keep your pee (urine) pale yellow. ??? Wear compression stockings as told by your provider. These stockings help to prevent blood clots and reduce swelling in your legs. ??? Keep all follow-up visits. Your provider will check your legs for any changes and adjust your treatment plan as needed. Contact a health care provider if: ??? You have redness, swelling, or more pain in the affected area. ??? You see a red streak or line that goes up or down from the area. ??? You have skin breakdown or skin loss. ??? You get an injury in the affected area. ??? You get a fever. Get help right away if: ??? You have severe pain that does not get better with medicine. ??? You get an injury and an open wound in the affected area. ??? Your foot or ankle becomes numb or weak all of a sudden. ??? You have trouble moving your foot or ankle. ??? Your symptoms do not go away or get worse. ??? You have chest pain. ??? You have shortness of breath. These symptoms may be an emergency. Get help right away. Call 911. ??? Do not wait to see if the symptoms will go away. ??? Do not drive yourself to the hospital. This information is not intended to replace advice given to you by your health care provider. Make sure you discuss any questions you have with your health care provider. Document Revised: 10/03/2023 Document Reviewed: 10/03/2023 [employer] Patient Education ? 2023 [employer] Dermatology Venous Ulcer A venous ulcer is a shallow sore on your lower leg. Venous ulcer is the most common type of lower leg ulcer. You may have venous ulcers on one leg or on both legs. This condition most (more content not included)... [facility] 07-23-2024 Hospital Discharge instructions Patient Education 07/23/2024 13:02:31 Preventing Health Risks of Being Overweight Preventing Health Risks of Being Overweight Maintaining a healthy body weight is an important part of your overall health. Your healthy body weight depends on your age, gender, and height. Being overweight puts you at risk for many health problems. You can make changes to your diet and lifestyle to prevent these risks. Consider working with a health care provider or a dietitian to make these changes. How can being overweight affect me? Being overweight can affect you for your entire life. You may develop joint or bone problems that make it painful or difficult for you to play sports or do activities you enjoy. Being overweight also puts stress on your heart and lungs and can lead to medical problems such as: Heart disease. Diabetes. Some types of cancer. Stroke. Eating healthy and being active helps you lose weight and prevents health problems caused by being overweight. Making these changes can also help you manage stress, feel better mentally, and connect with friends and family. What can increase my risk? In addition to certain diet and lifestyle choices, some other factors that may make you more likely to be overweight include: Having a family history of obesity. Living in an area with limited access to: ?[place], recreation centers, or sidewalks. ?Healthy food choices, such as grocery stores and [employer] markets. What actions can I take to prevent health risks of being overweight? Nutrition Eat only as much as your body needs. In most cases, this is about 2,000 calories a day, but the amount varies depending on your height, gender, and activity level. Ask your health care provider how many calories you should have each day. Eating more than your body needs on a regular basis can cause you to become overweight or obese. Eat slowly, and stop eating when you feel full. Choose healthy foods, including: ?Fruits and vegetables. ?Lean meats. ?Low-fat dairy products. ?High-fiber foods, such as whole grains and beans. ?Healthy snacks like vegetable sticks, a piece of fruit, or a small amount of yogurt or cheese. Avoid foods and drinks that are high in sugar, salt (sodium), saturated fat, or trans fat. This includes: ?Many desserts such as candy, cookies, and ice cream. ?Soda. ?Fried foods. ?Processed, precooked, or cured meat, such as hot dogs, sausages, or meat loaves. ?Prepackaged snack foods. Lifestyle Exercise for at least 150 minutes a week to prevent weight gain, or as often as recommended by your health care provider. Do moderate-intensity exercise, such as brisk walking. ?Spread it out by exercising for 30 minutes 5 days a week, or in short 10-minute bursts several times a day. Find other ways to stay active and burn calories, such as yard work or a hobby that involves physical activity. Get at least 8 hours of sleep each night. When you are well rested, you are more likely to be active and make healthy choices during the day. To sleep better: ?Try to go to bed and wake up at about the same time every day. ?Keep your bedroom dark, quiet, and cool. ?Make sure that your bed is comfortable. ?Avoid stimulating activities, such as watching television or exercising, for at least an hour before bedtime. Where to find support You can get support for preventing health risks of being overweight from: Your health care provider or a dietitian. They can provide guidance about healthy eating and healthy lifestyle choices. Weight loss support groups, online or in-person. Where to find more information MyPlate: www.choosemyplate.gov ?This an online tool that provides personalized recommendations about foods to eat each day. The Centers for Disease Control and Prevention: www.cdc.gov/healthyweight ?This resource gives tips for managing weight and having an active lifestyle. Summary Eating healthy and being active helps you lose weight and prevents health problems caused by being overweight. Being overweight puts stress on your heart and lungs and can lead to medical problems such as diabetes, heart disease, some types of cancer, and stroke. This information is not intended to replace advice given to you by your health care provider. Make sure you discuss any questions you have with your health care provider. Document Revised: 04/15/2022 Document Reviewed: 04/15/2022 [employer] Patient Education 2023 [employer]. 07/23/2024 13:02:19 BMI for Adults BMI for Adults Body mass index (BMI) is a number found using a person's weight and height. BMI can help tell how much of a person's weight is made up of fat. BMI does not measure body fat directly. It is used instead of tests that directly measure body fat, which can be difficult and expensive. What are BMI measurements used for? BMI is useful to: Find out if your weight puts you at higher risk for medical problems. Help recommend changes, such as in diet and exercise. This can help you reach a healthy weight. BMI screening can be done again to see if these changes are working. How is BMI calculated? Your height and weight are measured. The BMI is found from those numbers. This can be done with U.S. or metric measurements. Note that charts and online BMI calculators are available to help you find your BMI quickly and easily without doing these calculations. To calculate your BMI in U.S. measurements: 1.Measure your weight in pounds (lb). 2.Multiply the number of pounds by 703. So, for an adult who weighs 150 lb, multiply that number by 703: 150 x 703, which equals 105,450. 3.Measure your height in inches. Then multiply that number by itself to get a measurement called inches squared. So, for an adult who is 70 inches tall, the inches squared measurement is 70 inches x 70 inches, which equals 4,900 inches squared. 4.Divide the total from step 2 (number of lb x 703) by the total from step 3 (inches squared): 105,450 4,900 = 21.5. This is your BMI. To calculate your BMI in metric measurements: 1.Measure your weight in kilograms (kg). For this example, the weight is 70 kg. 2.Measure your height in meters (m). Then multiply that number by itself to get a measurement called meters squared. So, for an adult who is 1.75 m tall, the meters squared measurement is 1.75 m x 1.75 m, which equals 3.1 meters squared. 3.Divide the number of kilograms (your weight) by the meters squared number. In this example: 70 3.1 = 22.6. This is your BMI. What do the results mean? BMI charts are used to see if you are underweight, normal weight, overweight, or obese. The following guidelines will be used: Underweight: BMI less than 18.5. Normal weight: BMI between 18.5 and 24.9. Overweight: BMI between 25 and 29.9. Obese: BMI of 30 or above. BMI is a tool and cannot diagnose a condition. Talk with your health care provider about what your BMI means for you. Keep these notes in mind: Weight includes fat and muscle. Someone with a muscular build, such as an athlete, may have a BMI that is higher than 24.9. In cases like these, BMI is not a correct measure of body fat. If you have a BMI of 25 or higher, your provider may need to do more testing to find out if excess body fat is the cause. BMI is measured the same way for males and females. Females usually have more body fat than males of the same height and weight. Where to find more information For more information about BMI, including tools to quickly find your BMI, go to: Centers for Disease Control and Prevention: cdc.gov [employer] [employer]: heart.org National Heart, Lung, and Blood [employer]: nhlbi.nih.gov This information is not intended to replace advice given to you by your health care provider. Make sure you discuss any questions you have with your health care provider. Document Revised: 06/08/2023 Document Reviewed: 06/01/2023 [employer] Patient Education 2023 [employer]. 07/23/2024 13:02:14 Cellulitis, Adult, Bykx-cs-[id number] Cellulitis, Adult Cellulitis is a skin infection. The infected area is often warm, red, swollen, and sore. It occurs most often on the legs, feet, and toes, but can happen on any part of the body. This condition can be life-threatening without treatment. It is very important to get treated right away. What are the causes? This condition is caused by bacteria. The bacteria enter through a break in the skin, such as: A cut. A burn. A bug bite. An animal bite. An open sore. A crack. What increases the risk? Having a weak body's defense system (immune system). Being older than 60 years old. Having a blood sugar problem (diabetes). Having a long-term liver disease (cirrhosis) or kidney disease. Being very overweight (obese). Having a skin problem, such as: ?An itchy rash. ?A rash caused by a fungus. ?A rash with blisters. ?Slow movement of blood in the veins (venous stasis). ?Fluid buildup below the skin (edema). This condition is more likely to occur in people who: Have open cuts, garcia, bites, or scrapes on the skin. Have been treated with high-energy rays (radiation). Use IV drugs. What are the signs or symptoms? Skin that: ?Looks red or purple, or slightly darker than your usual skin color. ?Has streaks. ?Has spots. ?Is swollen. ?Is sore or painful when you touch it. ?Is warm. A fever. Chills. Blisters. Tiredness (fatigue). How is this treated? Medicines to treat infections or allergies. Rest. Placing cold or warm cloths on the skin. Staying in the hospital, if the condition is very bad. You may need medicines through an IV. Follow these instructions at home: Medicines Take paji-bym-oaezkyz and prescription medicines only as told by your doctor. If you were prescribed antibiotics, take them as told by your doctor. Do not stop using them even if you start to feel better. General instructions Drink enough fluid to keep your pee (urine) pale yellow. Do not touch or rub the infected area. Raise (elevate) the infected area above the level of your heart while you are sitting or lying down. Return to your normal activities when your doctor says that it is safe. Place cold or warm cloths on the area as told by your doctor. Keep all follow-up visits. Your doctor will need to make sure that a more serious infection is not developing. Contact a doctor if: You have a fever. You do not start to get better after 1 2 days of treatment. Your bone or joint under the infected area starts to hurt after the skin has healed. Your infection comes back in the same area or another area. Signs of this may include: ?You have a swollen bump in the area. ?Your red area gets larger, turns dark in color, or hurts more. ?You have more fluid coming from the wound. ?Pus or a bad smell develops in your infected area. ?You have more pain. You feel sick and have muscle aches and weakness. You develop vomiting or watery poop that will not go away. Get help right away if: You see red streaks coming from the area. You notice the skin turns purple or black and falls off. These symptoms may be an emergency. Get help right away. Call 911. Do not wait to see if the symptoms will go away. Do not drive yourself to the hospital. This information is not intended to replace advice given to you by your health care provider. Make sure you discuss any questions you have with your health care provider. Document Revised: 05/16/2023 Document Reviewed: 05/16/2023 [employer] Patient Education 2023 [employer]. Follow Up Care 07/23/2024 08:47:42 With:GEOFF PINTO FAAFP, Jamison Campos, VARINDER, PED Address: [address] [place] [address] [place] [address]- When: Unknown [facility] 07-23-2024 Note Patient Education Endocrinology Preventing Health Risks of Being Overweight Maintaining a healthy body weight is an important part of your overall health. Your healthy body weight depends on your age, gender, and height. Being overweight puts you at risk for many health problems. You can make changes to your diet and lifestyle to prevent these risks. Consider working with a health care provider or a dietitian to make these changes. How can being overweight affect me? Being overweight can affect you for your entire life. You may develop joint or bone problems that make it painful or difficult for you to play sports or do activities you enjoy. Being overweight also puts stress on your heart and lungs and can lead to medical problems such as: ? Heart disease. ? Diabetes. ? Some types of cancer. ? Stroke. Eating healthy and being active helps you lose weight and prevents health problems caused by being overweight. Making these changes can also help you manage stress, feel better mentally, and connect with friends and family. What can increase my risk? In addition to certain diet and lifestyle choices, some other factors that may make you more likely to be overweight include: ? Having a family history of obesity. ? Living in an area with limited access to: ? [place], recreation centers, or sidewalks. ? Healthy food choices, such as grocery stores and [employer]. What actions can I take to prevent health risks of being overweight? Nutrition ? Eat only as much as your body needs. In most cases, this is about 2,000 calories a day, but the amount varies depending on your height, gender, and activity level. Ask your health care provider how many calories you should have each day. Eating more than your body needs on a regular basis can cause you to become overweight or obese. ? Eat slowly, and stop eating when you feel full. ? Choose healthy foods, including: ? Fruits and vegetables. ? Lean meats. ? Low-fat dairy products. ? High-fiber foods, such as whole grains and beans. ? Healthy snacks like vegetable sticks, a piece of fruit, or a small amount of yogurt or cheese. ? Avoid foods and drinks that are high in sugar, salt (sodium), saturated fat, or trans fat. This includes: ? Many desserts such as candy, cookies, and ice cream. ? Soda. ? Fried foods. ? Processed, precooked, or cured meat, such as hot dogs, sausages, or meat loaves. ? Prepackaged snack foods. Lifestyle ? Exercise for at least 150 minutes a week to prevent weight gain, or as often as recommended by your health care provider. Do moderate-intensity exercise, such as brisk walking. ? Spread it out by exercising for 30 minutes 5 days a week, or in short 10-minute bursts several times a day. ? Find other ways to stay active and burn calories, such as yard work or a hobby that involves physical activity. ? Get at least 8 hours of sleep each night. When you are well rested, you are more likely to be active and make healthy choices during the day. To sleep better: ? Try to go to bed and wake up at about the same time every day. ? Keep your bedroom dark, quiet, and cool. ? Make sure that your bed is comfortable. ? Avoid stimulating activities, such as watching television or exercising, for at least an hour before bedtime. Where to find support You can get support for preventing health risks of being overweight from: ? Your health care provider or a dietitian. They can provide guidance about healthy eating and healthy lifestyle choices. ? Weight loss support groups, online or in-person. Where to find more information ? MyPlate: www.GridXplate.gov ? This an online tool that provides personalized recommendations about foods to eat each day. ? The Centers for Disease Control and Prevention: www.cdc.gov/healthyweight ? This resource gives tips for managing weight and having an active lifestyle. Summary ? Eating healthy and being active helps you lose weight and prevents health problems caused by being overweight. ? Being overweight puts stress on your heart and lungs and can lead to medical problems such as diabetes, heart disease, some types of cancer, and stroke. This information is not intended to replace advice given to you by your health care provider. Make sure you discuss any questions you have with your health care provider. Document Revised: 04/15/2022 Document Reviewed: 04/15/2022 [employer] Patient Education ? 2023 [employer] Infectious Disease Cellulitis, Adult Cellulitis is a skin infection. The infected area is often warm, red, swollen, and sore. It occurs most often on the legs, feet, and toes, but can happen on any part of the body. This condition can be life-threatening without treatment. It is very important to get treated right away. What are the causes? This condition is caused by bacteria. The bacteria e (more content not included)... [facility] 07-15-2024 Hospital Discharge instructions Patient Education 07/15/2024 16:27:46 Cellulitis, Adult, Bfow-ly-Obze Cellulitis, Adult Cellulitis is a skin infection. The infected area is often warm, red, swollen, and sore. It occurs most often on the legs, feet, and toes, but can happen on any part of the body. This condition can be life-threatening without treatment. It is very important to get treated right away. What are the causes? This condition is caused by bacteria. The bacteria enter through a break in the skin, such as: A cut. A burn. A bug bite. An animal bite. An open sore. A crack. What increases the risk? Having a weak body's defense system (immune system). Being older than 60 years old. Having a blood sugar problem (diabetes). Having a long-term liver disease (cirrhosis) or kidney disease. Being very overweight (obese). Having a skin problem, such as: ?An itchy rash. ?A rash caused by a fungus. ?A rash with blisters. ?Slow movement of blood in the veins (venous stasis). ?Fluid buildup below the skin (edema). This condition is more likely to occur in people who: Have open cuts, garcia, bites, or scrapes on the skin. Have been treated with high-energy rays (radiation). Use IV drugs. What are the signs or symptoms? Skin that: ?Looks red or purple, or slightly darker than your usual skin color. ?Has streaks. ?Has spots. ?Is swollen. ?Is sore or painful when you touch it. ?Is warm. A fever. Chills. Blisters. Tiredness (fatigue). How is this treated? Medicines to treat infections or allergies. Rest. Placing cold or warm cloths on the skin. Staying in the hospital, if the condition is very bad. You may need medicines through an IV. Follow these instructions at home: Medicines Take apwi-qnd-vuffuba and prescription medicines only as told by your doctor. If you were prescribed antibiotics, take them as told by your doctor. Do not stop using them even if you start to feel better. General instructions Drink enough fluid to keep your pee (urine) pale yellow. Do not touch or rub the infected area. Raise (elevate) the infected area above the level of your heart while you are sitting or lying down. Return to your normal activities when your doctor says that it is safe. Place cold or warm cloths on the area as told by your doctor. Keep all follow-up visits. Your doctor will need to make sure that a more serious infection is not developing. Contact a doctor if: You have a fever. You do not start to get better after 1 2 days of treatment. Your bone or joint under the infected area starts to hurt after the skin has healed. Your infection comes back in the same area or another area. Signs of this may include: ?You have a swollen bump in the area. ?Your red area gets larger, turns dark in color, or hurts more. ?You have more fluid coming from the wound. ?Pus or a bad smell develops in your infected area. ?You have more pain. You feel sick and have muscle aches and weakness. You develop vomiting or watery poop that will not go away. Get help right away if: You see red streaks coming from the area. You notice the skin turns purple or black and falls off. These symptoms may be an emergency. Get help right away. Call 911. Do not wait to see if the symptoms will go away. Do not drive yourself to the hospital. This information is not intended to replace advice given to you by your health care provider. Make sure you discuss any questions you have with your health care provider. Document Revised: 05/16/2023 Document Reviewed: 05/16/2023 [employer] Patient Education 2023 [employer]. 07/15/2024 16:27:38 Atrial Fibrillation, Vmxg-hw-Jjci Atrial Fibrillation Atrial fibrillation (AFib) is a type of heartbeat that is irregular or fast. If you have AFib, your heart beats without any order. This makes it hard for your heart to pump blood in a normal way. AFib may come and go, or it may become a long-lasting problem. If AFib is not treated, it can put you at higher risk for stroke, heart failure, and other heart problems. What are the causes? AFib may be caused by diseases that damage the heart's electrical system. They include: High blood pressure. Heart failure. Heart valve diseases. Heart surgery. Diabetes. Thyroid disease. Kidney disease. Lung diseases, such as pneumonia or COPD. Sleep apnea. Sometimes the cause is not known. What increases the risk? You are more likely to develop AFib if: You are older. You exercise often and very hard. You have a family history of AFib. You are male. You are . You are overweight. You smoke. You drink a lot of alcohol. What are the signs or symptoms? Common symptoms of this condition include: A feeling that your heart is beating very fast. Chest pain or discomfort. Feeling short of breath. Suddenly feeling light-headed or weak. Getting tired easily during activity. Fainting. Sweating. In some cases, there are no symptoms. How is this treated? Medicines to: ?Prevent blood clots. ?Treat heart rate or heart rhythm problems. Using devices, such as a pacemaker, to correct heart rhythm problems. Doing surgery to remove the part of the heart that sends bad signals. Closing an area where clots can form in the heart (left atrial appendage). In some cases, your doctor will treat other underlying conditions. Follow these instructions at home: Medicines Take cajm-yvx-jjqskcy and prescription medicines only as told by your doctor. Do not take any new medicines without first talking to your doctor. If you are taking blood thinners: ?Talk with your doctor before taking aspirin or NSAIDs, such as ibuprofen. ?Take your medicines as told. Take them at the same time each day. ?Do not do things that could hurt or bruise you. Be careful to avoid falls. ?Wear an alert bracelet or carry a card that says you take blood thinners. Lifestyle Do not smoke or use any products that contain nicotine or tobacco. If you need help quitting, ask your doctor. Eat heart-healthy foods. Talk with your doctor about the right eating plan for you. Exercise regularly as told by your doctor. Do not drink alcohol. Lose weight if you are overweight. General instructions If you have sleep apnea, treat it as told by your doctor. Do not use diet pills unless your doctor says they are safe for you. Diet pills may make heart problems worse. Keep all follow-up visits. Your doctor will check your heart rate and rhythm regularly. Contact a doctor if: You notice a change in the speed, rhythm, or strength of your heartbeat. You are taking a blood-thinning medicine and you get more bruising. You get tired more easily when you move or exercise. You have a sudden change in weight. Get help right away if: You have pain in your chest. You have trouble breathing. You have side effects of blood thinners, such as blood in your vomit, poop (stool), or pee (urine), or bleeding that cannot stop. You have any signs of a stroke. BE FAST is an easy way to remember the main warning signs: ?B - Balance. Dizziness, sudden trouble walking, or loss of balance. ?E - Eyes. Trouble seeing or a change in how you see. ?F - Face. Sudden weakness or loss of feeling in the face. The face or eyelid may droop on one side. ?A - Arms.Weakness or loss of feeling in an arm. This happens suddenly and usually on one side of the body. ?S - Speech. Sudden trouble speaking, slurred speech, or trouble understanding what people say. ?T - Time.Time to call emergency services. Write down what time symptoms started. You have other signs of a stroke, such as: ?A sudden, very bad headache with no known cause. ?Feeling like you may vomit (nausea). ?Vomiting. ?A seizure. These symptoms may be an emergency. Get help right away. Call 911. Do not wait to see if the symptoms will go away. Do not drive yourself to the hospital. This information is not intended to replace advice given to you by your health care provider. Make sure you discuss any questions you have with your health care provider. Document Revised: 06/07/2023 Document Reviewed: 06/07/2023 [employer] Patient Education 2023 [employer]. 07/15/2024 16:12:01 Abrasion, Gkgk-ul-Kjxl Abrasion An abrasion is a cut or a scrape on your skin. You must take care of your wound so germs do not get in it and cause infection. What are the causes? This condition is caused by rubbing your skin on something or falling on a surface, such as the ground. When your skin rubs on something, some layers of skin may rub off. What are the signs or symptoms? A cut or a scrape. Bleeding. A red or pink spot. A bruise under your wound. How is this treated? This condition may be treated with: Cleaning your wound. Putting ointment on your wound. Putting a bandage on your wound. Getting a tetanus shot. Follow these instructions at home: Your doctor may tell you to do these things: Medicines Take or use rcxi-dlt-iqobtwo and prescription medicines only as told by your doctor. If you were prescribed an antibiotic medicine, use it as told by your doctor. Do not stop using it even if you start to feel better. Keep your wound clean Clean your wound 1 or 2 times a day or as often told by your doctor. To do this: 1.Wash your hands for at least 20 seconds with mild soap and water. Do this before and after you clean your wound. 2.Wash your wound with mild soap and water. 3.Rinse off the soap. 4.Pat your wound with a clean towel to dry it. Do not rub your wound. Keep your bandage clean and dry. Take it off and change it as told by your doctor. ?You may have to change your bandage one or more times a day, or as told by your doctor. Watch for signs of infection Check your wound every day for signs of infection. Check for: A red streak that goes away from your wound. Other redness. Swelling or more pain. Warmth. Blood, fluid, pus, or a bad smell. Treat pain and swelling If told, put ice on the injured area. To do this: ?Put ice in a plastic bag. ?Place a towel between your skin and the bag. ?Leave the ice on for 20 minutes, 2 3 times a day. ?Take off the ice if your skin turns bright red. This is very important. If you cannot feel pain, heat, or cold, you have a greater risk of damage to the area. If you can, raise the injured area above the level of your heart while you are sitting or lying down. General instructions Do not take baths, swim, or use a hot tub. Ask your doctor about taking showers or sponge baths. Keep all follow-up visits. Contact a doctor if: You had a tetanus shot, and you have any of these where the needle went in: ?Swelling. ?Very bad pain. ?Redness. ?Bleeding. You have a lot of pain, and medicine does not help. You have a fever. You have any of these signs of infection in your wound: ?Redness, swelling, or more pain. ?Blood, fluid, pus, or a bad smell. ?Warmth. Get help right away if: You have a red streak going away from your wound. Summary An abrasion is a cut or a scrape on your skin. Take care of your wound so germs do not get in it. Clean your wound 1 or 2 times a day or as often as told. Change your bandage as told and use medicines as told. Call your doctor if you have a fever or if you have redness, swelling, or more pain in your wound. Call your doctor if you have blood, fluid, pus, or a bad smell in your wound. Get help right away if you have a red streak going away from your wound. This information is not intended to replace advice given to you by your health care provider. Make sure you discuss any questions you have with your health care provider. Document Revised: 12/17/2020 Document Reviewed: 12/17/2020 [employer] Patient Education 2023 [employer] Follow Up Care 03/26/2024 14:32:10 With:Jamison TELLEZ DO, FAAFP, FAM, PED Address: [address] [place] [address] [place] [address]- When:Within 3 Month(s) With:Jamison TELLEZ DO, FAAFP, FAM, PED Address: [address] [place] [address] [place] [address]- When:Within 3 Month(s) [facility] 07-15-2024 Hospital Discharge instructions Patient Education 07/15/2024 15:40:47 Preventive Care 65 Years and Older, Male Preventive Care 65 Years and Older, Male Preventive care refers to lifestyle choices and visits with your health care provider that can promote health and wellness. Preventive care visits are also called wellness exams. What can I expect for my preventive care visit? Counseling During your preventive care visit, your health care provider may ask about your: Medical history, including: ?Past medical problems. ?Family medical history. ?History of falls. Current health, including: ?Emotional well-being. ?Home life and relationship well-being. ?Sexual activity. ?Memory and ability to understand (cognition). Lifestyle, including: ?Alcohol, nicotine or tobacco, and drug use. ?Access to firearms. ?Diet, exercise, and sleep habits. ?Work and work environment. ?Sunscreen use. ?Safety issues such as seatbelt and bike helmet use. Physical exam Your health care provider will check your: Height and weight. These may be used to calculate your BMI (body mass index). BMI is a measurement that tells if you are at a healthy weight. Waist circumference. This measures the distance around your waistline. This measurement also tells if you are at a healthy weight and may help predict your risk of certain diseases, such as type 2 diabetes and high blood pressure. Heart rate and blood pressure. Body temperature. Skin for abnormal spots. What immunizations do I need? Vaccines are usually given at various ages, according to a schedule. Your health care provider will recommend vaccines for you based on your age, medical history, and lifestyle or other factors, such as travel or where you work. What tests do I need? Screening Your health care provider may recommend screening tests for certain conditions. This may include: Lipid and cholesterol levels. Diabetes screening. This is done by checking your blood sugar (glucose) after you have not eaten for a while (fasting). Hepatitis C test. Hepatitis B test. HIV (human immunodeficiency virus) test. STI (sexually transmitted infection) testing, if you are at risk. Lung cancer screening. Colorectal cancer screening. Prostate cancer screening. Abdominal aortic aneurysm (AAA) screening. You may need this if you are a current or former smoker. Talk with your health care provider about your test results, treatment options, and if necessary, the need for more tests. Follow these instructions at home: Eating and drinking Eat a diet that includes fresh fruits and vegetables, whole grains, lean protein, and low-fat dairy products. Limit your intake of foods with high amounts of sugar, saturated fats, and salt. Take vitamin and mineral supplements as recommended by your health care provider. Do not drink alcohol if your health care provider tells you not to drink. If you drink alcohol: ?Limit how much you have to 0 2 drinks a day. ?Know how much alcohol is in your drink. In the [place] one drink equals one 12 oz bottle of beer (355 mL), one 5 oz glass of wine (148 mL), or one 1 oz glass of hard liquor (44 mL). Lifestyle Maria Stein your teeth every morning and night with fluoride toothpaste. Floss one time each day. Exercise for at least 30 minutes 5 or more days each week. Do not use any products that contain nicotine or tobacco. These products include cigarettes, chewing tobacco, and vaping devices, such as e-cigarettes. If you need help quitting, ask your health care provider. Do not use drugs. If you are sexually active, practice safe sex. Use a condom or other form of protection to prevent STIs. Take aspirin only as told by your health care provider. Make sure that you understand how much to take and what form to take. Work with your health care provider to find out whether it is safe and beneficial for you to take aspirin daily. Ask your health care provider if you need to take a cholesterol-lowering medicine (statin). Find healthy ways to manage stress, such as: ?Meditation, yoga, or listening to music. ?Journaling. ?Talking to a trusted person. ?Spending time with friends and family. Safety Always wear your seat belt while driving or riding in a vehicle. Do not drive: ?If you have been drinking alcohol. Do not ride with someone who has been drinking. ?When you are tired or distracted. ?While texting. ?If you have been using any mind-altering substances or drugs. Wear a helmet and other protective equipment during sports activities. If you have firearms in your house, make sure you follow all gun safety procedures. Minimize exposure to UV radiation to reduce your risk of skin cancer. What's next? Visit your health care provider once a year for an annual wellness visit. Ask your health care provider how often you should have your eyes and teeth checked. Stay up to date on all vaccines. This information is not intended to replace advice given to you by your health care provider. Make sure you discuss any questions you have with your health care provider. Document Revised: 03/16/2022 Document Reviewed: 03/16/2022 [employer] Patient Education 2023 [employer] 07/15/2024 15:40:38 DASH Eating Plan DASH Eating Plan DASH stands for Dietary Approaches to Stop Hypertension. The DASH eating plan is a healthy eating plan that has been shown to: Lower high blood pressure (hypertension). Reduce your risk for type 2 diabetes, heart disease, and stroke. Help with weight loss. What are tips for following this plan? Reading food labels Check food labels for the amount of salt (sodium) per serving. Choose foods with less than 5 percent of the Daily Value (DV) of sodium. In general, foods with less than 300 milligrams (mg) of sodium per serving fit into this eating plan. To find whole grains, look for the word whole as the first word in the ingredient list. Shopping Buy products labeled as low-sodium or no salt added. Buy fresh foods. Avoid canned foods and pre-made or frozen meals. Cooking Try not to add salt when you cook. Use salt-free seasonings or herbs instead of table salt or sea salt. Check with your health care provider or pharmacist before using salt substitutes. Do not herrera foods. Cook foods in healthy ways, such as baking, boiling, grilling, roasting, or broiling. Cook using oils that are good for your heart. These include olive, canola, avocado, soybean, and sunflower oil. Meal planning Eat a balanced diet. This should include: ?4 or more servings of fruits and 4 or more servings of vegetables each day. Try to fill half of your plate with fruits and vegetables. ?6 8 servings of whole grains each day. ?6 or less servings of lean meat, poultry, or fish each day. 1 oz is 1 serving. A 3 oz (85 g) serving of meat is about the same size as the palm of your hand. One egg is 1 oz (28 g). ?2 3 servings of low-fat dairy each day. One serving is 1 cup (237 mL). ?1 serving of nuts, seeds, or beans 5 times each week. ?2 3 servings of heart-healthy fats. Healthy fats called omega-3 fatty acids are found in foods such as walnuts, flaxseeds, fortified milks, and eggs. These fats are also found in cold-water fish, such as sardines, salmon, and mackerel. Limit how much you eat of: ?Canned or prepackaged foods. ?Food that is high in trans fat, such as fried foods. ?Food that is high in saturated fat, such as fatty meat. ?Desserts and other sweets, sugary drinks, and other foods with added sugar. ?Full-fat dairy products. Do not salt foods before eating. Do not eat more than 4 egg yolks a week. Try to eat at least 2 vegetarian meals a week. Eat more home-cooked food and less restaurant, buffet, and fast food. Lifestyle When eating at a restaurant, ask if your food can be made with less salt or no salt. If you drink alcohol: ?Limit how much you have to: ?0 1 drink a day if you are female. ?0 2 drinks a day if you are male. ?Know how much alcohol is in your drink. In the [place] one drink is one 12 oz bottle of beer (355 mL), one 5 oz glass of wine (148 mL), or one 1 oz glass of hard liquor (44 mL). General information Avoid eating more than 2,300 mg of salt a day. If you have hypertension, you may need to reduce your sodium intake to 1,500 mg a day. Work with your provider to stay at a healthy body weight or lose weight. Ask what the best weight range is for you. On most days of the week, get at least 30 minutes of exercise that causes your heart to beat faster. This may include walking, swimming, or biking. Work with your provider or dietitian to adjust your eating plan to meet your specific calorie needs. What foods should I eat? Fruits All fresh, dried, or frozen fruit. Canned fruits that are in their natural juice and do not have sugar added to them. Vegetables Fresh or frozen vegetables that are raw, steamed, roasted, or grilled. Low-sodium or reduced-sodium tomato and vegetable juice. Low-sodium or reduced-sodium tomato sauce and tomato paste. Low-sodium or reduced-sodium canned vegetables. Grains Whole-grain or whole-wheat bread. Whole-grain or whole-wheat pasta. Brown rice. Oatmeal. Quinoa. Bulgur. Whole-grain and low-sodium cereals. Linda bread. Low-fat, low-sodium crackers. Whole-wheat flour tortillas. Meats and other proteins Skinless chicken or turkey. Ground chicken or turkey. Pork with fat trimmed off. Fish and seafood. Egg whites. Dried beans, peas, or lentils. Unsalted nuts, nut butters, and seeds. Unsalted canned beans. Lean cuts of beef with fat trimmed off. Low-sodium, lean precooked or cured meat, such as sausages or meat loaves. Dairy Low-fat (1%) or fat-free (skim) milk. Reduced-fat, low-fat, or fat-free cheeses. Nonfat, low-sodium ricotta or cottage cheese. Low-fat or nonfat yogurt. Low-fat, low-sodium cheese. Fats and oils Soft margarine without trans fats. Vegetable oil. Reduced-fat, low-fat, or light mayonnaise and salad dressings (reduced-sodium). Canola, safflower, olive, avocado, soybean, and sunflower oils. Avocado. Seasonings and condiments Herbs. Spices. Seasoning mixes without salt. Other foods Unsalted popcorn and pretzels. Fat-free sweets. The items listed above may not be all the foods and drinks you can have. Talk to a dietitian to learn more. What foods should I avoid? Fruits Canned fruit in a light or heavy syrup. Fried fruit. Fruit in cream or butter sauce. Vegetables Creamed or fried vegetables. Vegetables in a cheese sauce. Regular canned vegetables that are not marked as low-sodium or reduced-sodium. Regular canned tomato sauce and paste that are not marked as low-sodium or reduced-sodium. Regular tomato and vegetable juices that are not marked as low-sodium or reduced-sodium. Pickles. Olives. Grains Baked goods made with fat, such as croissants, muffins, or some breads. Dry pasta or rice meal packs. Meats and other proteins Fatty cuts of meat. Ribs. Fried meat. Cabrera. Bologna, salami, and other precooked or cured meats, such as sausages or meat loaves, that are not lean and low in sodium. Fat from the back of a pig (fatback). Bratwurst. Salted nuts and seeds. Canned beans with added salt. Canned or smoked fish. Whole eggs or egg yolks. Chicken or turkey with skin. Dairy Whole or 2% milk, cream, and [id number]-jdis. Whole or full-fat cream cheese. Whole-fat or sweetened yogurt. Full-fat cheese. Nondairy creamers. Whipped toppings. Processed cheese and cheese spreads. Fats and oils Butter. Stick margarine. Lard. Shortening. Ghee. Cabrera fat. Tropical oils, such as coconut, palm kernel, or palm oil. Seasonings and condiments Onion salt, garlic salt, seasoned salt, table salt, and sea salt. Worcestershire sauce. Tartar sauce. Barbecue sauce. Teriyaki sauce. Soy sauce, including reduced-sodium soy sauce. Steak sauce. Canned and packaged gravies. Fish sauce. Oyster sauce. Cocktail sauce. Store-bought horseradish. Ketchup. Mustard. Meat flavorings and tenderizers. Bouillon cubes. Hot sauces. Pre-made or packaged marinades. Pre-made or packaged taco seasonings. Relishes. Regular salad dressings. Other foods Salted popcorn and pretzels. The items listed above may not be all the foods and drinks you should avoid. Talk to a dietitian to learn more. Where to find more information National Heart, Lung, and Blood Richardson (NHLBI): nhlbi.nih.gov [place] [employer] Association (AHA): heart.org Academy of Nutrition and Dietetics: eatright.org National Kidney Foundation (NKF): kidney.org This information is not intended to replace advice given to you by your health care provider. Make sure you discuss any questions you have with your health care provider. Document Revised: 10/05/2023 Document Reviewed: 10/05/2023 [employer] Patient Education 2023 [employer]. [facility] 07-15-2024 Note Patient Education Cardiovascular Atrial Fibrillation Atrial fibrillation (AFib) is a type of heartbeat that is irregular or fast. If you have AFib, your heart beats without any order. This makes it hard for your heart to pump blood in a normal way. AFib may come and go, or it may become a long-lasting problem. If AFib is not treated, it can put you at higher risk for stroke, heart failure, and other heart problems. What are the causes? AFib may be caused by diseases that damage the heart's electrical system. They include: ? High blood pressure. ? Heart failure. ? Heart valve diseases. ? Heart surgery. ? Diabetes. ? Thyroid disease. ? Kidney disease. ? Lung diseases, such as pneumonia or COPD. ? Sleep apnea. Sometimes the cause is not known. What increases the risk? You are more likely to develop AFib if: ? You are older. ? You exercise often and very hard. ? You have a family history of AFib. ? You are male. ? You are . ? You are overweight. ? You smoke. ? You drink a lot of alcohol. What are the signs or symptoms? Common symptoms of this condition include: ? A feeling that your heart is beating very fast. ? Chest pain or discomfort. ? Feeling short of breath. ? Suddenly feeling light-headed or weak. ? Getting tired easily during activity. ? Fainting. ? Sweating. In some cases, there are no symptoms. How is this treated? ? Medicines to: ? Prevent blood clots. ? Treat heart rate or heart rhythm problems. ? Using devices, such as a pacemaker, to correct heart rhythm problems. ? Doing surgery to remove the part of the heart that sends bad signals. ? Closing an area where clots can form in the heart (left atrial appendage). In some cases, your doctor will treat other underlying conditions. Follow these instructions at home: Medicines ? Take cfxt-psp-hfbscbs and prescription medicines only as told by your doctor. ? Do not take any new medicines without first talking to your doctor. ? If you are taking blood thinners: ? Talk with your doctor before taking aspirin or NSAIDs, such as ibuprofen. ? Take your medicines as told. Take them at the same time each day. ? Do not do things that could hurt or bruise you. Be careful to avoid falls. ? Wear an alert bracelet or carry a card that says you take blood thinners. Lifestyle ? Do not smoke or use any products that contain nicotine or tobacco. If you need help quitting, ask your doctor. ? Eat heart-healthy foods. Talk with your doctor about the right eating plan for you. ? Exercise regularly as told by your doctor. ? Do not drink alcohol. ? Lose weight if you are overweight. General instructions ? If you have sleep apnea, treat it as told by your doctor. ? Do not use diet pills unless your doctor says they are safe for you. Diet pills may make heart problems worse. ? Keep all follow-up visits. Your doctor will check your heart rate and rhythm regularly. Contact a doctor if: ? You notice a change in the speed, rhythm, or strength of your heartbeat. ? You are taking a blood-thinning medicine and you get more bruising. ? You get tired more easily when you move or exercise. ? You have a sudden change in weight. Get help right away if: ? You have pain in your chest. ? You have trouble breathing. ? You have side effects of blood thinners, such as blood in your vomit, poop (stool), or pee (urine), or bleeding that cannot stop. ? You have any signs of a stroke. BE FAST is an easy way to remember the main warning signs: ? B - Balance. Dizziness, sudden trouble walking, or loss of balance. ? E - Eyes. Trouble seeing or a change in how you see. ? F - Face. Sudden weakness or loss of feeling in the face. The face or eyelid may droop on one side. ? A - Arms.Weakness or loss of feeling in an arm. This happens suddenly and usually on one side of the body. ? S - Speech. Sudden trouble speaking, slurred speech, or trouble understanding what people say. ? T - Time.Time to call emergency services. Write down what time symptoms started. ? You have other signs of a stroke, such as: ? A sudden, very bad headache with no known cause. ? Feeling like you may vomit (nausea). ? Vomiting. ? A seizure. These symptoms may be an emergency. Get help right away. Call 911. ? Do not wait to see if the symptoms will go away. ? Do not drive yourself to the hospital. This information is not intended to replace advice given to you by your health care provider. Make sure you discuss any questions you have with your health care provider. Document Revised: 06/07/2023 Document Reviewed: 06/07/2023 Elsevier Patient Education ? 2023 [employer] Dermatology Abrasion An abrasion is a cut or a scrape on your skin. You must take care of your wound so germs do not get in it and cause infection. What are the causes? This condition is caused by rubb (more content not included)... [facility] 07-15-2024 Note Patient Education Nutrition DASH Eating Plan DASH stands for Dietary Approaches to Stop Hypertension. The DASH eating plan is a healthy eating plan that has been shown to: ? Lower high blood pressure (hypertension). ? Reduce your risk for type 2 diabetes, heart disease, and stroke. ? Help with weight loss. What are tips for following this plan? Reading food labels ? Check food labels for the amount of salt (sodium) per serving. Choose foods with less than 5 percent of the Daily Value (DV) of sodium. In general, foods with less than 300 milligrams (mg) of sodium per serving fit into this eating plan. ? To find whole grains, look for the word whole as the first word in the ingredient list. Shopping ? Buy products labeled as low-sodium or no salt added. ? Buy fresh foods. Avoid canned foods and pre-made or frozen meals. Cooking ? Try not to add salt when you cook. Use salt-free seasonings or herbs instead of table salt or sea salt. Check with your health care provider or pharmacist before using salt substitutes. ? Do not herrera foods. Cook foods in healthy ways, such as baking, boiling, grilling, roasting, or broiling. ? Cook using oils that are good for your heart. These include olive, canola, avocado, soybean, and sunflower oil. Meal planning ? Eat a balanced diet. This should include: ? 4 or more servings of fruits and 4 or more servings of vegetables each day. Try to fill half of your plate with fruits and vegetables. ? 6?8 servings of whole grains each day. ? 6 or less servings of lean meat, poultry, or fish each day. 1 oz is 1 serving. A 3 oz (85 g) serving of meat is about the same size as the palm of your hand. One egg is 1 oz (28 g). ? 2?3 servings of low-fat dairy each day. One serving is 1 cup (237 mL). ? 1 serving of nuts, seeds, or beans 5 times each week. ? 2?3 servings of heart-healthy fats. Healthy fats called omega-3 fatty acids are found in foods such as walnuts, flaxseeds, fortified milks, and eggs. These fats are also found in cold-water fish, such as sardines, salmon, and mackerel. ? Limit how much you eat of: ? Canned or prepackaged foods. ? Food that is high in trans fat, such as fried foods. ? Food that is high in saturated fat, such as fatty meat. ? Desserts and other sweets, sugary drinks, and other foods with added sugar. ? Full-fat dairy products. ? Do not salt foods before eating. ? Do not eat more than 4 egg yolks a week. ? Try to eat at least 2 vegetarian meals a week. ? Eat more home-cooked food and less restaurant, buffet, and fast food. Lifestyle ? When eating at a restaurant, ask if your food can be made with less salt or no salt. ? If you drink alcohol: ? Limit how much you have to: ? 0?1 drink a day if you are female. ? 0?2 drinks a day if you are male. ? Know how much alcohol is in your drink. In the [place] one drink is one 12 oz bottle of beer (355 mL), one 5 oz glass of wine (148 mL), or one 1? oz glass of hard liquor (44 mL). General information ? Avoid eating more than 2,300 mg of salt a day. If you have hypertension, you may need to reduce your sodium intake to 1,500 mg a day. ? Work with your provider to stay at a healthy body weight or lose weight. Ask what the best weight range is for you. ? On most days of the week, get at least 30 minutes of exercise that causes your heart to beat faster. This may include walking, swimming, or biking. ? Work with your provider or dietitian to adjust your eating plan to meet your specific calorie needs. What foods should I eat? Fruits All fresh, dried, or frozen fruit. Canned fruits that are in their natural juice and do not have sugar added to them. Vegetables Fresh or frozen vegetables that are raw, steamed, roasted, or grilled. Low-sodium or reduced-sodium tomato and vegetable juice. Low-sodium or reduced-sodium tomato sauce and tomato paste. Low-sodium or reduced-sodium canned vegetables. Grains Whole-grain or whole-wheat bread. Whole-grain or whole-wheat pasta. Brown rice. Oatmeal. Quinoa. Bulgur. Whole-grain and low-sodium cereals. Linda bread. Low-fat, low-sodium crackers. Whole-wheat flour tortillas. Meats and other proteins Skinless chicken or turkey. Ground chicken or turkey. Pork with fat trimmed off. Fish and seafood. Egg whites. Dried beans, peas, or lentils. Unsalted nuts, nut butters, and seeds. Unsalted canned beans. Lean cuts of beef with fat trimmed off. Low-sodium, lean precooked or cured meat, such as sausages or meat loaves. Dairy Low-fat (1%) or fat-free (skim) milk. Reduced-fat, low-fat, or fat-free cheeses. Nonfat, low-sodium ricotta or cottage cheese. Low-fat or nonfat yogurt. Low-fat, low-sodium cheese. Fats and oils Soft margarine without trans fats. Vegetable oil. Reduced-fat, low-fat, or light mayonnaise and salad dressings (reduced-sodium). Canola, safflower, olive, avocado, soybean, and sunflower oils. Avocado. Seasonings and condiments Her (more content not included)... [facility] 07-12-2024 History of Present illness Narrative Subjective Patient ID: Jose Rocha is a 83 y.o. male who presents for Toenail Care. HPI Left lower leg wound happened about a week to 10 days. Loose skin flap that now has stopped bleeding and minimal drainage.Warm moderate redness and swelling. Patient has been applying neosporin and bandage Also Complains tingling in b/l feet and radiates up his calves . Still using 300 mg gabapentin Nail care Location nails on bilateral feet Severity of symptoms mild Onset gradual Status no change Context hard to trim, hard to reach Nails thickened, discolored, pain Relieved by debridement, filing down nails, clipping nails History of ulcers/wounds no Aggravated by shoe gear, pressure Last seen date: 03-26-24 Last seen diagnosing provider: Dr Geoff PERES General: Chillsdenies. Feverdenies. Musculoskeletal: muscle weaknessdenies. Bone/joint symptomsdenies. Peripheral Vascular: Edemadenies. Hx of blood clots in legsdenies. Raynaud'sdenies. Rest pain denies. Ulceration of feetdenies. Varicose veinsdenies. Skin: Hyperpigmentationdenies. Nail changesdenies. Rashdenies. Skin lesion(s)denies. Neurologic: Gait abnormalitydenies. Tingling/Numbnessdenies. Current Medications Current Outpatient Medications: acetaminophen (Tylenol) 500 MG tablet, Take by mouth, Disp: , Rfl: B Azngxuv-W-Srwod Acid (B-Complex Balanced) tablet, Take 1 tablet by mouth Daily, Disp: , Rfl: benzonatate (Tessalon) 100 MG capsule, TAKE 1 CAPSULE BY MOUTH THREE TIMES DAILY for 7 days, Disp: , Rfl: cholecalciferol (Vitamin D-3) 50 MCG (1999) capsule, 1 capsule 1 (one) time each day at the same time., Disp: , Rfl: Eliquis 5 MG tablet, , Disp: , Rfl: flecainide (Tambocor) 50 MG tablet, Take 50 mg by mouth every 12 (twelve) hours., Disp: , Rfl: gabapentin (Neurontin) 300 MG capsule, Take 300 mg by mouth in the morning., Disp: , Rfl: Lipitor 20 MG tablet, 1 (one) time each day at the same time., Disp: , Rfl: losartan (Cozaar) 50 MG tablet, Take 50 mg by mouth in the morning., Disp: , Rfl: Multiple Vitamin (multivitamin) tablet, Take 1 tablet by mouth in the morning., Disp: , Rfl: tamsulosin (Flomax) 0.4 MG 24 hr capsule, Take 0.4 mg by mouth in the morning., Disp: , Rfl: tiZANidine (Zanaflex) 4 MG capsule, Take 4 mg by mouth in the morning and 4 mg in the evening and 4 mg before bedtime., Disp: , Rfl: zolpidem CR (Ambien CR) 12.5 MG ER tablet, TAKE 1 TABLET BY MOUTH EVERY DAILY AT BEDTIME NEEDED for sleep, Disp: , Rfl: Allergies Patient has no known allergies. Medical Histories Past Medical History: Diagnosis Date A-fib ([facility]) 2016 Atopic eczema BPH with elevated PSA DDD (degenerative disc disease), cervical Depression ([facility]) Diverticulosis Fractured sternum GERD (gastroesophageal reflux disease) Gouty arthritis Hearing loss Hereditary sensorimotor neuropathy HLD (hyperlipidemia) ([facility]) HTN (hypertension) (CMS/HCC) Hx of scarlet fever IBS (irritable bowel syndrome) Insomnia HAYDER (obstructive sleep apnea) Sternum fx 04/2019 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CMS/HCC) Trigeminal neuralgia (CMS/HCC) Urinary retention Surgical Histories Past Surgical History: Procedure Laterality Date APPENDECTOMY 2002 BLADDER REPAIR 07/2012 CARPAL TUNNEL RELEASE CATARACT EXTRACTION W/ INTRAOCULAR LENS IMPLANT Bilateral CHOLECYSTECTOMY 07/2002 COLONOSCOPY W/ POLYPECTOMY 1999, 2006, 2008 HIATAL HERNIA REPAIR 11/1996 STEPHANY FUNDOPLICATION 1994 OTHER SURGICAL HISTORY 01/31/2008 r/o BCCA AK TOTAL HIP ARTHROPLASTY Left 02/02/2016 AK TOTAL KNEE ARTHROPLASTY Right 07/18/2017 TURP / TRANSURETHRAL INCISION / DRAINAGE PROSTATE 07/2012 Hospitalizations Family History Family History Problem Relation Name Age of Onset Kidney cancer Mother Heart disease Father Alzheimer's disease Sibling Heart disease Sibling Mental illness Sibling Melanoma Neg Hx Objective Foot Exam General Examination: alert, well hydrated, in no distress , awake, aware of surroundings . Dermatologic: HYPERKERATOSIS:dist right 3-minimal. NAIL PATHOLOGY:digits 1-5 bilateral are intact. atrophic skin with neg digital hair and hyperpigmentation. New wound 2x 12mm after debridement subcutaneous base. 4cm intact skin flap healing mid shaft left ant kendall- mild distal local redness and POP Nail Pathology: Left Foot: 1 (great toe)Long, Thick, Crumbly, Deformed, Discolored, Brittle, Dystrophic 5mm. 2Long, Thick, Crumbly, Deformed, Discolored, Brittle, Dystrophic 4mm. 3Long, Thick, Crumbly, Deformed, Discolored, Brittle, Dystrophic . 4Long, Thick, . 5Long, Thick, Crumbly, Deformed, Discolored, Brittle, Dystrophic 3mm Nail Pathology: Right Foot: 1 (great toe)Long, Thick, Crumbly, Deformed, Discolored, Brittle, Dystrophic 4 mm. 2Long, Thick, Crumbly, Deformed, Discolored, Brittle, Dystrophic 3mm. 3Long, Thick, . 4Long, Thick, . 5Long, Thick, Crumbly, Deformed, Discolored, Brittle, Dystrophic . Modifier: -Q9, Parastesias. Orthopedic: DEFORMITIES:Hammer toe, 2,3, 4 bilateral , Hallux abductovalgus, left. Good range of motion and no pain on exam other than to the great toe nail margin bilateral. Ankle / Foot: Good strength and ROM bilat, no jose ramon or legs tenderness. neg homans sign. Neurologic: Vibratory sensation, sharp/dull and light touch are absent to the plantar foot bilateral. Loss of SWM 5.07 protective sensation to the plantar foot bilateral, all toes involved bilateral into above the ankle Vascular: palp pulses bilat and good color and refill digits. minimal edema, minimal varicosities. Assessment/Plan neuropathy,mycotic nails- progressive. Severe- new wound injury left kendall/ulcer Nails: all thick and dystrophic nails debrided of all affected and loose material All of the nondystrophic nails were debrided Neuropathy: sugar control emphasized and caution for wounds and regular inspections. any new problems with appt sugg. pain can b treated with topical or oral measures, many were offered. pain can b managed with topcial or oral methods and offered today Wound Debride: Sterile sharp debridement of wound including loose and necrotic tissue down to healthy viable tissue was performed. Topical lidocaine was used for pain mngmt. Hemostasis was maintained by pressure and the wound was cleansed and compression DSD applied. Procedure was tolerated well Daily cleanse and betadine drsg planned. Call if any incr redness, swelling, pain or drainage. Risk of infection entering deep tissues or bone leading to amputation reviewed documented in this encounter [facility] 06-27-2024 History of Present illness Narrative Images from the original note were not included. Jose Rocha is a 83 y.o. male presents with chief complaint of follow up left shoulder cuff arthropathy. HPI: Carson is here doing the natalie exercises once a day. He does have Voltaren gel but he has not been utilizing it. He does take occasional Tylenol. He is somewhat emotional today. His spouse was in the hospital in ICU. She was recently discharged home with home therapy. She has been doing better. He has pain, stiffness and crepitus but he seems to be moving better. His night is doing better as well. SUBJECTIVE: MEDICATIONS: Current Outpatient Medications Medication Instructions acetaminophen (Tylenol) 500 MG tablet Oral B Zqiwvqp-T-Pwkrv Acid (B-Complex Balanced) tablet 1 tablet, Oral, Daily benzonatate (Tessalon) 100 MG capsule TAKE 1 CAPSULE BY MOUTH THREE TIMES DAILY for 7 days cholecalciferol (Vitamin D-3) 50 MCG (1999) capsule 1 capsule, Every 24 hours Eliquis 5 MG tablet flecainide (TAMBOCOR) 50 mg, Oral, Every 12 hours gabapentin (NEURONTIN) 300 mg, Oral, Daily Lipitor 20 MG tablet Every 24 hours losartan (COZAAR) 50 mg, Oral, Daily Multiple Vitamin (multivitamin) tablet 1 tablet, Oral, Daily tamsulosin (FLOMAX) 0.4 mg, Oral, Daily tiZANidine (ZANAFLEX) 4 mg, Oral, 3 times daily zolpidem CR (Ambien CR) 12.5 MG ER tablet TAKE 1 TABLET BY MOUTH EVERY DAILY AT BEDTIME NEEDED for sleep ALLERGIES: No Known Allergies SURGICAL HISTORY: Past Surgical History: Procedure Laterality Date APPENDECTOMY 2001 BLADDER REPAIR 07/2012 CARPAL TUNNEL RELEASE CATARACT EXTRACTION W/ INTRAOCULAR LENS IMPLANT Bilateral CHOLECYSTECTOMY 07/2002 COLONOSCOPY W/ POLYPECTOMY 1999, 2006, 2008 HIATAL HERNIA REPAIR 11/1996 STEPHANY FUNDOPLICATION 1994 OTHER SURGICAL HISTORY 01/31/2008 r/o BCCA AK TOTAL HIP ARTHROPLASTY Left 02/02/2016 [place] TOTAL KNEE ARTHROPLASTY Right 07/18/2017 TURP / TRANSURETHRAL INCISION / DRAINAGE PROSTATE 07/2012 FAMILY HISTORY: Family History Problem Relation Name Age of Onset Kidney cancer Mother Heart disease Father Alzheimer's disease Sibling Heart disease Sibling Mental illness Sibling Melanoma Neg Hx SOCIAL HISTORY: Social History Tobacco Use Smoking status: Never Smokeless tobacco: Never Vaping Use Vaping status: Never Used Substance Use Topics Alcohol use: Never Drug use: Never Depression: Not on file REVIEW OF SYMPTOMS: The review of systems, history and current medications list are all reviewed today. OBJECTIVE: Visit Vitals Ht 5' 10 Wt 190 lb BMI 27.26 kg/m Smoking Status Never BSA 2.06 m Physical Exam On physical exam, he is alert and oriented. Vital signs are stable. There is no discernable sign of rash or infection. There is mild swelling. Range of motion is moderately restricted actively. Passively is full without adhesive component. Chronic cuff arthropathy signs are present with moderate weakness. His pain is moderate particularly through forward flexion. Abduction, rotation in lower planes produces mild pain. There is no obvious sign of rash or infectious process. No instability. Of note, he is moving somewhat more fluid. His pain seems to be diminishing as well. X-rays, permanently saved to the patient's record, are reviewed from April showing cuff arthropathy with advanced degenerative changes. These are in the permanent web viewer. ASSESSMENT AND PLAN: Assessment/Plan Left shoulder cuff arthropathy. The nature of the findings were discussed at length. He can improve out to a year. We discussed wall, pendulum and natalie exercises, ice, Tylenol and topicals with Voltaren gel. Cortisone injection has been offered and done in the past with limited success. This was offered today but declined. He is aware the only salvage here is reverse shoulder replacement. Given his age, as well as spouse's medical condition, he has no interest in any form of surgical intervention. He voices verbal understanding. He is discharged in stable condition. Numerous questions were answered. Follow up p.r.n.. The patient was seen and examined. From the time of check in, nurse triage, vital signs, x-ray, x-ray interpretation, review of systems, comprehensive history and physical exam as well as setting up treatment plan and further management took 35 minutes. documented in this encounter [facility] 05-31-2024 Hospital Discharge instructions Patient Education 05/31/2024 16:29:09 BMI for Adults BMI for Adults Body mass index (BMI) is a number found using a person's weight and height. BMI can help tell how much of a person's weight is made up of fat. BMI does not measure body fat directly. It is used instead of tests that directly measure body fat, which can be difficult and expensive. What are BMI measurements used for? BMI is useful to: Find out if your weight puts you at higher risk for medical problems. Help recommend changes, such as in diet and exercise. This can help you reach a healthy weight. BMI screening can be done again to see if these changes are working. How is BMI calculated? Your height and weight are measured. The BMI is found from those numbers. This can be done with [place] or metric measurements. Note that charts and online BMI calculators are available to help you find your BMI quickly and easily without doing these calculations. To calculate your BMI in [place] measurements: 1.Measure your weight in pounds (lb). 2.Multiply the number of pounds by 703. So, for an adult who weighs 150 lb, multiply that number by 703: 150 x 703, which equals 105,450. 3.Measure your height in inches. Then multiply that number by itself to get a measurement called inches squared. So, for an adult who is 70 inches tall, the inches squared measurement is 70 inches x 70 inches, which equals 4,900 inches squared. 4.Divide the total from step 2 (number of lb x 703) by the total from step 3 (inches squared): 105,450 4,900 = 21.5. This is your BMI. To calculate your BMI in metric measurements: 1.Measure your weight in kilograms (kg). For this example, the weight is 70 kg. 2.Measure your height in meters (m). Then multiply that number by itself to get a measurement called meters squared. So, for an adult who is 1.75 m tall, the meters squared measurement is 1.75 m x 1.75 m, which equals 3.1 meters squared. 3.Divide the number of kilograms (your weight) by the meters squared number. In this example: 70 3.1 = 22.6. This is your BMI. What do the results mean? BMI charts are used to see if you are underweight, normal weight, overweight, or obese. The following guidelines will be used: Underweight: BMI less than 18.5. Normal weight: BMI between 18.5 and 24.9. Overweight: BMI between 25 and 29.9. Obese: BMI of 30 or above. BMI is a tool and cannot diagnose a condition. Talk with your health care provider about what your BMI means for you. Keep these notes in mind: Weight includes fat and muscle. Someone with a muscular build, such as an athlete, may have a BMI that is higher than 24.9. In cases like these, BMI is not a correct measure of body fat. If you have a BMI of 25 or higher, your provider may need to do more testing to find out if excess body fat is the cause. BMI is measured the same way for males and females. Females usually have more body fat than males of the same height and weight. Where to find more information For more information about BMI, including tools to quickly find your BMI, go to: Centers for Disease Control and Prevention: cdc.gov [employer] [employer]: heart.org National Heart, Lung, and Blood [employer]: nhlbi.nih.gov This information is not intended to replace advice given to you by your health care provider. Make sure you discuss any questions you have with your health care provider. Document Revised: 06/08/2023 Document Reviewed: 06/01/2023 [employer] Patient Education 2023 [employer]. 05/31/2024 16:29:06 COVID-19 COVID-19 COVID-19 is an infection caused by a virus called SARS-CoV-2. This type of virus is called a coronavirus. People with COVID-19 may: Have little to no symptoms. Have mild to moderate symptoms that affect their lungs and breathing. Get very sick. What are the causes? COVID-19 is caused by a virus. This virus may be in the air as droplets or on surfaces. It can spread from an infected person when they cough, sneeze, speak, sing, or breathe. You may become infected if: You breathe in the infected droplets in the air. You touch an object that has the virus on it. What increases the risk? You are at risk of getting COVID-19 if you have been around someone with the infection. You may be more likely to get very sick if: You are 65 years old or older. You have certain medical conditions, such as: ?Heart disease. ?Diabetes. ?Chronic respiratory disease. ?Cancer. ?. You are immunocompromised. This means your body cannot fight infections easily. You have a disability or trouble moving, meaning you're immobile. What are the signs or symptoms? People may have different symptoms from COVID-19. The symptoms can also be mild to severe. They often show up in 5 6 days after being infected. But they can take up to 14 days to appear. Common symptoms are: Cough. Feeling tired. New loss of taste or smell. Fever. Less common symptoms are: Sore throat. Headache. Body or muscle aches. Diarrhea. A skin rash or odd-colored fingers or toes. Red or irritated eyes. Sometimes, COVID-19 does not cause symptoms. How is this diagnosed? COVID-19 can be diagnosed with tests done in the lab or at home. Fluid from your nose, mouth, or lungs will be used to check for the virus. How is this treated? Treatment for COVID-19 depends on how sick you are. Mild symptoms can be treated at home with rest, fluids, and spgg-xwm-amyojvh medicines. Severe symptoms may be treated in a hospital intensive care unit (ICU). If you have symptoms and are at risk of getting very sick, you may be given a medicine that fights viruses. This medicine is called an antiviral. How is this prevented? To protect yourself from COVID-19: 1.Know your risk factors. 2.Get vaccinated. 3.If your body cannot fight infections easily, talk to your provider about treatment to help prevent COVID-19. 4.Stay at least 1 meter away from others. 5.Wear a well-fitted mask when: You can't stay at a distance from people. You're in a place with poor air flow. 6.Try to be in open spaces with good air flow when in public. 7.Wash your hands often or use an alcohol-based hand electrical equipment assembler. 8.Cover your nose and mouth when coughing and sneezing. If you think you have COVID-19 or have been around someone who has it, stay home and be by yourself for 5 10 days. Where to find more information Centers for Disease Control and Prevention (CDC): cdc.gov World Health Organization (WHO): who.int Get help right away if: You have trouble breathing or get short of breath. You have pain or pressure in your chest. You cannot speak or move any part of your body. You are confused. Your symptoms get worse. These symptoms may be an emergency. Get help right away. Call 911. Do not wait to see if the symptoms will go away. Do not drive yourself to the hospital. This information is not intended to replace advice given to you by your health care provider. Make sure you discuss any questions you have with your health care provider. Document Revised: 09/26/2023 Document Reviewed: 06/02/2023 [employer] Patient Education 2023 [employer]. Follow Up Care 05/31/2024 10:43:21 With:GEOFF PINTO FAAFP, VARINDER Alanis, PED Address: [address] [place] [address], [facility] [place] [address]- When: Unknown [facility] 05-31-2024 Note Patient Education Infectious Disease COVID-19 COVID-19 is an infection caused by a virus called SARS-CoV-2. This type of virus is called a coronavirus. People with COVID-19 may: ? Have little to no symptoms. ? Have mild to moderate symptoms that affect their lungs and breathing. ? Get very sick. What are the causes? COVID-19 is caused by a virus. This virus may be in the air as droplets or on surfaces. It can spread from an infected person when they cough, sneeze, speak, sing, or breathe. You may become infected if: ? You breathe in the infected droplets in the air. ? You touch an object that has the virus on it. What increases the risk? You are at risk of getting COVID-19 if you have been around someone with the infection. You may be more likely to get very sick if: ? You are 65 years old or older. ? You have certain medical conditions, such as: ? Heart disease. ? Diabetes. ? Chronic respiratory disease. ? Cancer. ? . ? You are immunocompromised. This means your body cannot fight infections easily. ? You have a disability or trouble moving, meaning you're immobile. What are the signs or symptoms? People may have different symptoms from COVID-19. The symptoms can also be mild to severe. They often show up in 5?6 days after being infected. But they can take up to 14 days to appear. Common symptoms are: ? Cough. ? Feeling tired. ? New loss of taste or smell. ? Fever. Less common symptoms are: ? Sore throat. ? Headache. ? Body or muscle aches. ? Diarrhea. ? A skin rash or odd-colored fingers or toes. ? Red or irritated eyes. Sometimes, COVID-19 does not cause symptoms. How is this diagnosed? COVID-19 can be diagnosed with tests done in the lab or at home. Fluid from your nose, mouth, or lungs will be used to check for the virus. How is this treated? Treatment for COVID-19 depends on how sick you are. ? Mild symptoms can be treated at home with rest, fluids, and ubte-ulo-avidovo medicines. ? Severe symptoms may be treated in a hospital intensive care unit (ICU). If you have symptoms and are at risk of getting very sick, you may be given a medicine that fights viruses. This medicine is called an antiviral. How is this prevented? To protect yourself from COVID-19: 1. Know your risk factors. 2. Get vaccinated. 3. If your body cannot fight infections easily, talk to your provider about treatment to help prevent COVID-19. 4. Stay at least 1 meter away from others. 5. Wear a well-fitted mask when: ? You can't stay at a distance from people. ? You're in a place with poor air flow. 6. Try to be in open spaces with good air flow when in public. 7. Wash your hands often or use an alcohol-based hand electrical equipment assembler. 8. Cover your nose and mouth when coughing and sneezing. If you think you have COVID-19 or have been around someone who has it, stay home and be by yourself for 5?10 days. Where to find more information ? Centers for Disease Control and Prevention (CDC): cdc.gov ? World Health Organization (WHO): who.int Get help right away if: ? You have trouble breathing or get short of breath. ? You have pain or pressure in your chest. ? You cannot speak or move any part of your body. ? You are confused. ? Your symptoms get worse. These symptoms may be an emergency. Get help right away. Call 911. ? Do not wait to see if the symptoms will go away. ? Do not drive yourself to the hospital. This information is not intended to replace advice given to you by your health care provider. Make sure you discuss any questions you have with your health care provider. Document Revised: 09/26/2023 Document Reviewed: 06/02/2023 [employer] Patient Education ? 2023 [employer] Nutrition BMI for Adults Body mass index (BMI) is a number found using a person's weight and height. BMI can help tell how much of a person's weight is made up of fat. BMI does not measure body fat directly. It is used instead of tests that directly measure body fat, which can be difficult and expensive. What are BMI measurements used for? BMI is useful to: ? Find out if your weight puts you at higher risk for medical problems. ? Help recommend changes, such as in diet and exercise. This can help you reach a healthy weight. BMI screening can be done again to see if these changes are working. How is BMI calculated? Your height and weight are measured. The BMI is found from those numbers. This can be done with U.S[place] or metric measurements. Note that charts and online BMI calculators are available to help you find your BMI quickly and easily without doing these calculations. To calculate your BMI in [place] measurements: 1. Measure your weight in pounds (lb). 2. Multiply the number of pounds by 703. ? So, for an adult who weighs 150 lb, multiply that number by 703: 150 x 703, which equals 105,450. 3. Measure your height in inches. Then multiply that number by itself to get (more content not included)... [facility] 05-23-2024 Note Nurse Consultation N ote Reason for Visit Patient positive for COVID 05/20/24, here for repeat testing Assessment/Plan COVID (U07.1: COVID-19) Medications Eliquis 5 mg oral tablet, 5 mg= 1 tab(s), Oral, BID flecainide 50 mg Tab, 50 mg= 1 tab(s), Oral, q12hr Flomax 0.4 mg Cap, 0.4 mg= 1 cap(s), Oral, Daily, 3 refills, Not taking gabapentin 300 mg Cap, 300 mg= 1 cap(s), Oral, Daily Lipitor 20 mg Tab, 20 mg= 1 tab(s), Oral, Once a day (at bedtime), 3 refills losartan 50 mg Tab, 50 mg= 1 tab(s), Oral, Daily Metamucil 3.4 g/5.2 g oral powder, 3.4 gm, Oral, Daily One A Day Men's Complete, Oral, Daily tizanidine 4 mg oral capsule, 4 mg= 1 cap(s), Oral, TID triamcinolone Top 0.1% Crm 15 gram, See Instructions, 1 refills Vitamin D3 50 mcg (2000 intl units) oral tablet, chewable, 50 mcg= 1 tab(s), Oral, Daily zolpidem 12.5 mg oral ER Tab, 12.5 mg= 1 tab(s), Oral, Once a day (at bedtime), PRN, 5 refills Allergies No Known Allergies Immunizations Vaccine Date Status Comments influenza virus vaccine, inactivated 06/22/2023 Recorded influenza virus vaccine, inactivated 07/22/2022 Given SARS-CoV-2 (COVID-19) [id number] 07/05/2022 Recorded SARS-CoV-2 (COVID-19) mRNA-1273 vaccine 02/08/2022 Recorded diphtheria/pertussis, acel/tetanus adult 08/04/2021 Given SARS-CoV-2 (COVID-19) mRNA-1273 vaccine 08/04/2021 Given influenza virus vaccine, inactivated 06/15/2021 Given SARS-CoV-2 (COVID-19) mRNA-1273 vaccine 11/24/2020 Given SARS-CoV-2 (COVID-19) mRNA-1273 vaccine 10/24/2020 Given Other (see comment) influenza virus vaccine, inactivated 07/17/2020 Recorded influenza virus vaccine, inactivated 07/06/2019 Recorded pneumococcal 13-valent vaccine 10/19/2018 Recorded influenza virus vaccine, inactivated 07/10/2018 Recorded influenza virus vaccine, inactivated 07/04/2018 Recorded diphtheria/pertussis, acel/tetanus adult 03/15/2018 Recorded influenza virus vaccine, inactivated 07/10/2017 Recorded influenza virus vaccine, inactivated 08/02/2016 Recorded influenza virus vaccine, inactivated 07/22/2016 Recorded pneumococcal 23-valent vaccine 07/21/2016 Recorded zoster vaccine live 07/06/2016 Recorded pneumococcal 23-valent vaccine 07/08/2015 Recorded influenza virus vaccine, inactivated 07/01/2015 Recorded influenza virus vaccine, inactivated 07/18/2014 Recorded pneumococcal 23-valent vaccine 07/17/2013 Recorded influenza virus vaccine, inactivated 07/10/2013 Recorded zoster vaccine live 05/23/2013 Recorded pneumococcal 23-valent vaccine 07/26/2012 Given Lab Results Ambulatory Point of Care Results Rapid Covid POC: Positive (05/23/24 09:31:00) [facility] 05-16-2024 Hospital Discharge instructions Patient Education 05/16/2024 17:20:50 COVID-19 COVID-19 COVID-19, or coronavirus disease 2019, is an infection that is caused by a new (novel) coronavirus called SARS-CoV-2. COVID-19 can cause many symptoms. In some people, the virus may not cause any symptoms. In others, it may cause mild or severe symptoms. Some people with severe infection develop severe disease. What are the causes? This illness is caused by a virus. The virus may be in the air as tiny specks of fluid (aerosols) or droplets, or it may be on surfaces. You may catch the virus by: Breathing in droplets from an infected person. Droplets can be spread by a person breathing, speaking, singing, coughing, or sneezing. Touching something, like a table or a doorknob, that has virus on it (is contaminated) and then touching your mouth, nose, or eyes. What increases the risk? Risk for infection: You are more likely to get infected with the COVID-19 virus if: You are within 6 ft (1.8 m) of a person with COVID-19 for 15 minutes or longer. You are providing care for a person who is infected with COVID-19. You are in close personal contact with other people. Close personal contact includes hugging, kissing, or sharing eating or drinking utensils. Risk for serious illness caused by COVID-19: You are more likely to get seriously ill from the COVID-19 virus if: You have cancer. You have a long-term (chronic) disease, such as: ?Chronic lung disease. This includes pulmonary embolism, chronic obstructive pulmonary disease, and cystic fibrosis. ?Long-term disease that lowers your body's ability to fight infection (immunocompromise). ?Serious cardiac conditions, such as heart failure, coronary artery disease, or cardiomyopathy. ?Diabetes. ?Chronic kidney disease. ?Liver diseases. These include cirrhosis, nonalcoholic fatty liver disease, alcoholic liver disease, or autoimmune hepatitis. You have obesity. You are or were recently . You have sickle cell disease. What are the signs or symptoms? Symptoms of this condition can range from mild to severe. Symptoms may appear any time from 2 to 14 days after being exposed to the virus. They include: Fever or chills. Shortness of breath or trouble breathing. Feeling tired or very tired. Headaches, body aches, or muscle aches. Runny or stuffy nose, sneezing, coughing, or sore throat. New loss of taste or smell. This is rare. Some people may also have stomach problems, such as nausea, vomiting, or diarrhea. Other people may not have any symptoms of COVID-19. How is this diagnosed? This condition may be diagnosed by testing samples to check for the COVID-19 virus. The most common tests are the PCR test and the antigen test. Tests may be done in the lab or at home. They include: Using a swab to take a sample of fluid from the back of your nose and throat (nasopharyngeal fluid), from your nose, or from your throat. Testing a sample of saliva from your mouth. Testing a sample of coughed-up mucus from your lungs (sputum). How is this treated? Treatment for COVID-19 infection depends on the severity of the condition. Mild symptoms can be managed at home with rest, fluids, and kngz-wgq-zpclens medicines. Serious symptoms may be treated in a hospital intensive care unit (ICU). Treatment in the ICU may include: ?Supplemental oxygen. Extra oxygen is given through a tube in the nose, a face mask, or a dueñas. ?Medicines. These may include: ?Antivirals, such as monoclonal antibodies. These help your body fight off certain viruses that can cause disease. ?Anti-inflammatories, such as corticosteroids. These reduce inflammation and suppress the immune system. ?Antithrombotics. These prevent or treat blood clots, if they develop. ?Convalescent plasma. This helps boost your immune system, if you have an underlying immunosuppressive condition or are getting immunosuppressive treatments. ?Prone positioning. This means you will lie on your stomach. This helps oxygen to get into your lungs. ?Infection control measures. If you are at risk for more serious illness caused by COVID-19, your health care provider may prescribe two long-acting monoclonal antibodies, given together every 6 months. How is this prevented? To protect yourself: Use preventive medicine (pre-exposure prophylaxis). You may get pre-exposure prophylaxis if you have moderate or severe immunocompromise. Get vaccinated. Anyone 6 months old or older who meets guidelines can get a COVID-19 vaccine or vaccine series. This includes people who are or making breast milk (lactating). Get an added dose of COVID-19 vaccine after your first vaccine or vaccine series if you have moderate to severe immunocompromise. This applies if you have had a solid organ transplant or have been diagnosed with an immunocompromising condition. ?You should get the added dose 4 weeks after you got the first COVID-19 vaccine or vaccine series. ?If you get an mRNA vaccine, you will need a 3-dose primary series. ?If you get the J&J/Roscoe vaccine, you will need a 2-dose primary series, with the second dose being an mRNA vaccine. Talk to your health care provider about getting experimental monoclonal antibodies. This treatment is approved under emergency use authorization to prevent severe illness before or after being exposed to the COVID-19 virus. You may be given monoclonal antibodies if: ?You have moderate or severe immunocompromise. This includes treatments that lower your immune response. People with immunocompromise may not develop protection against COVID-19 when they are vaccinated. ?You cannot be vaccinated. You may not get a vaccine if you have a severe allergic reaction to the vaccine or its components. ?You are not fully vaccinated. ?You are in a facility where COVID-19 is present and: ?Are in close contact with a person who is infected with the COVID-19 virus. ?Are at high risk of being exposed to the COVID-19 virus. ?You are at risk of illness from new variants of the COVID-19 virus. To protect others: If you have symptoms of COVID-19, take steps to prevent the virus from spreading to others. Stay home. Leave your house only to get medical care. Do not use public transit, if possible. Do not travel while you are sick. Wash your hands often with soap and water for at least 20 seconds. If soap and water are not available, use alcohol-based hand electrical equipment assembler. Make sure that all people in your household wash their hands well and often. Cough or sneeze into a tissue or your sleeve or elbow. Do not cough or sneeze into your hand or into the air. Where to find more information Centers for Disease Control and Prevention: www.cdc.gov/coronavirus World Health Organization: www.who.int/health-topics/coronavi ankita Get help right away if: You have trouble breathing. You have pain or pressure in your chest. You are confused. You have bluish lips and fingernails. You have trouble waking from sleep. You have symptoms that get worse. These symptoms may be an emergency. Get help right away. Call 911. Do not wait to see if the symptoms will go away. Do not drive yourself to the hospital. Summary COVID-19 is an infection that is caused by a new coronavirus. Sometimes, there are no symptoms. Other times, symptoms range from mild to severe. Some people with a severe COVID-19 infection develop severe disease. The virus that causes COVID-19 can spread from person to person through droplets or aerosols from breathing, speaking, singing, coughing, or sneezing. Mild symptoms of COVID-19 can be managed at home with rest, fluids, and wglp-hvh-riwxzkm medicines. This information is not intended to replace advice given to you by your health care provider. Make sure you discuss any questions you have with your health care provider. Document Revised: 09/08/2022 Document Reviewed: 09/08/2022 [employer] Patient Education 2022 [employer] 05/16/2024 17:20:49 Quarantine and Isolation Quarantine and Isolation Quarantine and isolation refer to local and travel restrictions to protect the public and travelers from contagious diseases that constitute a public health threat. Contagious diseases are diseases that can spread from one person to another. Quarantine and isolation help to protect the public by preventing exposure to people who have or may have a contagious disease. Isolation separates people who are sick with a contagious disease from people who are not sick. Quarantine separates and restricts the movement of people who were exposed to a contagious disease to see if they become sick. You may be put in quarantine or isolation if you have been exposed to or diagnosed with any of the following diseases: Severe acute respiratory syndromes, such as COVID-19. Cholera. Diphtheria. Tuberculosis. Plague. Smallpox. Yellow fever. Viral hemorrhagic fevers, such as [place], Ebola, and [place]. When to quarantine or isolate Follow these rules, whether you have been vaccinated or not: Stay home and isolate from others when you are sick with a contagious disease. Isolate when you test positive for a contagious disease, even if you do not have symptoms. Isolate if you are sick and suspect that you may have a contagious disease. ?If you suspect that you have a contagious disease, get tested. ?If your test results are negative, you can end your isolation. ?If your test results are positive, follow the full isolation recommendations as told by your health care provider or local health authorities. Quarantine and stay away from others when you have been in close contact with someone who has tested positive for a contagious disease. Close contact is defined as being less than 6 ft (1.8 m) away from an infected person for a total of 15 minutes or more over a 24-hour period. Do not go to places where you are unable to wear a mask, such as restaurants and some gyms. Stay home and separate from others as much as possible. ?Avoid being around people who may get very sick from the contagious disease that you have. ?Use a separate bathroom, if possible. Do not travel. For travel guidance, visit the CDC's travel webpage at wwwnc.cdc.gov/travel/ Follow these instructions at home: Medicines Take smwa-ghf-sxpfvik and prescription medicines as told by your health care provider. Finish all antibiotic medicine even when you start to feel better. Stay up to date with all your vaccines. Get scheduled vaccines and boosters as recommended by your health care provider. Lifestyle Wear a high-quality mask if you must be around others at home and in public, if recommended. Improve air flow (ventilation) at home to help prevent the disease from spreading to other people, if possible. Do not share personal household items, like cups, towels, and utensils. Practice everyday hygiene and cleaning. General instructions Talk to your health care provider if you have a weakened body defense system (immune system). People with a weakened immune system may have a reduced immune response to vaccines. You may need to follow current prevention measures, including wearing a well-fitting mask, avoiding crowds, and avoiding poorly ventilated indoor places. Monitor symptoms and follow health care provider instructions, which may include resting, drinking fluids, and taking medicines. Follow specific isolation and quarantine recommendations if you are in places that can lead to disease outbreaks, such as correctional and jail facilities, homeless shelters, and cruise ships. Return to your normal activities as told by your health care provider. Ask your health care provider what activities are safe for you. Keep all follow-up visits. This is important. Where to find more information CDC: www.cdc.gov/quarantine/index.html Contact a health care provider if: You have a fever. You have signs and symptoms that return or get worse after isolation. Get help right away if: You have difficulty breathing. You have chest pain. These symptoms may be an emergency. Get help right away. Call 911. Do not wait to see if the symptoms will go away. Do not drive yourself to the hospital. Summary Isolation and quarantine help protect the public by preventing exposure to people who have or may have a contagious disease. Isolate when you are sick or when you test positive, even if you do not have symptoms. Quarantine and stay away from others when you have been in close contact with someone who has tested positive for a contagious disease. This information is not intended to replace advice given to you by your health care provider. Make sure you discuss any questions you have with your health care provider. Document Revised: 09/29/2022 Document Reviewed: 09/08/2022 [employer] Patient Education 2022 [employer]. [facility] 05-16-2024 Note Patient Education Infectious Disease COVID-19 COVID-19, or coronavirus disease 2019, is an infection that is caused by a new (novel) coronavirus called SARS-CoV-2. COVID-19 can cause many symptoms. In some people, the virus may not cause any symptoms. In others, it may cause mild or severe symptoms. Some people with severe infection develop severe disease. What are the causes? This illness is caused by a virus. The virus may be in the air as tiny specks of fluid (aerosols) or droplets, or it may be on surfaces. You may catch the virus by: ? Breathing in droplets from an infected person. Droplets can be spread by a person breathing, speaking, singing, coughing, or sneezing. ? Touching something, like a table or a doorknob, that has virus on it (is contaminated) and then touching your mouth, nose, or eyes. What increases the risk? Risk for infection: You are more likely to get infected with the COVID-19 virus if: ? You are within 6 ft (1.8 m) of a person with COVID-19 for 15 minutes or longer. ? You are providing care for a person who is infected with COVID-19. ? You are in close personal contact with other people. Close personal contact includes hugging, kissing, or sharing eating or drinking utensils. Risk for serious illness caused by COVID-19: You are more likely to get seriously ill from the COVID-19 virus if: ? You have cancer. ? You have a long-term (chronic) disease, such as: ? Chronic lung disease. This includes pulmonary embolism, chronic obstructive pulmonary disease, and cystic fibrosis. ? Long-term disease that lowers your body's ability to fight infection (immunocompromise). ? Serious cardiac conditions, such as heart failure, coronary artery disease, or cardiomyopathy. ? Diabetes. ? Chronic kidney disease. ? Liver diseases. These include cirrhosis, nonalcoholic fatty liver disease, alcoholic liver disease, or autoimmune hepatitis. ? You have obesity. ? You are or were recently . ? You have sickle cell disease. What are the signs or symptoms? Symptoms of this condition can range from mild to severe. Symptoms may appear any time from 2 to 14 days after being exposed to the virus. They include: ? Fever or chills. ? Shortness of breath or trouble breathing. ? Feeling tired or very tired. ? Headaches, body aches, or muscle aches. ? Runny or stuffy nose, sneezing, coughing, or sore throat. ? New loss of taste or smell. This is rare. Some people may also have stomach problems, such as nausea, vomiting, or diarrhea. Other people may not have any symptoms of COVID-19. How is this diagnosed? This condition may be diagnosed by testing samples to check for the COVID-19 virus. The most common tests are the PCR test and the antigen test. Tests may be done in the lab or at home. They include: ? Using a swab to take a sample of fluid from the back of your nose and throat (nasopharyngeal fluid), from your nose, or from your throat. ? Testing a sample of saliva from your mouth. ? Testing a sample of coughed-up mucus from your lungs (sputum). How is this treated? Treatment for COVID-19 infection depends on the severity of the condition. ? Mild symptoms can be managed at home with rest, fluids, and rnbp-xfr-dqzupkt medicines. ? Serious symptoms may be treated in a hospital intensive care unit (ICU). Treatment in the ICU may include: ? Supplemental oxygen. Extra oxygen is given through a tube in the nose, a face mask, or a dueañs. ? Medicines. These may include: ? Antivirals, such as monoclonal antibodies. These help your body fight off certain viruses that can cause disease. ? Anti-inflammatories, such as corticosteroids. These reduce inflammation and suppress the immune system. ? Antithrombotics. These prevent or treat blood clots, if they develop. ? Convalescent plasma. This helps boost your immune system, if you have an underlying immunosuppressive condition or are getting immunosuppressive treatments. ? Prone positioning. This means you will lie on your stomach. This helps oxygen to get into your lungs. ? Infection control measures. If you are at risk for more serious illness caused by COVID-19, your health care provider may prescribe two long-acting monoclonal antibodies, given together every 6 months. How is this prevented? To protect yourself: ? Use preventive medicine (pre-exposure prophylaxis). You may get pre-exposure prophylaxis if you have moderate or severe immunocompromise. ? Get vaccinated. Anyone 6 months old or older who meets guidelines can get a COVID-19 vaccine or vaccine series. This includes people who are or making breast milk (lactating). ? Get an added dose of COVID-19 vaccine after your first vaccine or vaccine series if you have moderate to severe immunocompromise. This applies if you have had a solid organ transplant or have been diagnosed with an immunocompromising condit (more content not included)... [facility] 05-15-2024 Hospital Discharge instructions Patient Education 05/15/2024 11:38:15 COVID-19 COVID-19 COVID-19, or coronavirus disease 2019, is an infection that is caused by a new (novel) coronavirus called SARS-CoV-2. COVID-19 can cause many symptoms. In some people, the virus may not cause any symptoms. In others, it may cause mild or severe symptoms. Some people with severe infection develop severe disease. What are the causes? This illness is caused by a virus. The virus may be in the air as tiny specks of fluid (aerosols) or droplets, or it may be on surfaces. You may catch the virus by: Breathing in droplets from an infected person. Droplets can be spread by a person breathing, speaking, singing, coughing, or sneezing. Touching something, like a table or a doorknob, that has virus on it (is contaminated) and then touching your mouth, nose, or eyes. What increases the risk? Risk for infection: You are more likely to get infected with the COVID-19 virus if: You are within 6 ft (1.8 m) of a person with COVID-19 for 15 minutes or longer. You are providing care for a person who is infected with COVID-19. You are in close personal contact with other people. Close personal contact includes hugging, kissing, or sharing eating or drinking utensils. Risk for serious illness caused by COVID-19: You are more likely to get seriously ill from the COVID-19 virus if: You have cancer. You have a long-term (chronic) disease, such as: ?Chronic lung disease. This includes pulmonary embolism, chronic obstructive pulmonary disease, and cystic fibrosis. ?Long-term disease that lowers your body's ability to fight infection (immunocompromise). ?Serious cardiac conditions, such as heart failure, coronary artery disease, or cardiomyopathy. ?Diabetes. ?Chronic kidney disease. ?Liver diseases. These include cirrhosis, nonalcoholic fatty liver disease, alcoholic liver disease, or autoimmune hepatitis. You have obesity. You are or were recently . You have sickle cell disease. What are the signs or symptoms? Symptoms of this condition can range from mild to severe. Symptoms may appear any time from 2 to 14 days after being exposed to the virus. They include: Fever or chills. Shortness of breath or trouble breathing. Feeling tired or very tired. Headaches, body aches, or muscle aches. Runny or stuffy nose, sneezing, coughing, or sore throat. New loss of taste or smell. This is rare. Some people may also have stomach problems, such as nausea, vomiting, or diarrhea. Other people may not have any symptoms of COVID-19. How is this diagnosed? This condition may be diagnosed by testing samples to check for the COVID-19 virus. The most common tests are the PCR test and the antigen test. Tests may be done in the lab or at home. They include: Using a swab to take a sample of fluid from the back of your nose and throat (nasopharyngeal fluid), from your nose, or from your throat. Testing a sample of saliva from your mouth. Testing a sample of coughed-up mucus from your lungs (sputum). How is this treated? Treatment for COVID-19 infection depends on the severity of the condition. Mild symptoms can be managed at home with rest, fluids, and wbir-nhv-lupbcwc medicines. Serious symptoms may be treated in a hospital intensive care unit (ICU). Treatment in the ICU may include: ?Supplemental oxygen. Extra oxygen is given through a tube in the nose, a face mask, or a dueñas. ?Medicines. These may include: ?Antivirals, such as monoclonal antibodies. These help your body fight off certain viruses that can cause disease. ?Anti-inflammatories, such as corticosteroids. These reduce inflammation and suppress the immune system. ?Antithrombotics. These prevent or treat blood clots, if they develop. ?Convalescent plasma. This helps boost your immune system, if you have an underlying immunosuppressive condition or are getting immunosuppressive treatments. ?Prone positioning. This means you will lie on your stomach. This helps oxygen to get into your lungs. ?Infection control measures. If you are at risk for more serious illness caused by COVID-19, your health care provider may prescribe two long-acting monoclonal antibodies, given together every 6 months. How is this prevented? To protect yourself: Use preventive medicine (pre-exposure prophylaxis). You may get pre-exposure prophylaxis if you have moderate or severe immunocompromise. Get vaccinated. Anyone 6 months old or older who meets guidelines can get a COVID-19 vaccine or vaccine series. This includes people who are or making breast milk (lactating). Get an added dose of COVID-19 vaccine after your first vaccine or vaccine series if you have moderate to severe immunocompromise. This applies if you have had a solid organ transplant or have been diagnosed with an immunocompromising condition. ?You should get the added dose 4 weeks after you got the first COVID-19 vaccine or vaccine series. ?If you get an mRNA vaccine, you will need a 3-dose primary series. ?If you get the J&J/Roscoe vaccine, you will need a 2-dose primary series, with the second dose being an mRNA vaccine. Talk to your health care provider about getting experimental monoclonal antibodies. This treatment is approved under emergency use authorization to prevent severe illness before or after being exposed to the COVID-19 virus. You may be given monoclonal antibodies if: ?You have moderate or severe immunocompromise. This includes treatments that lower your immune response. People with immunocompromise may not develop protection against COVID-19 when they are vaccinated. ?You cannot be vaccinated. You may not get a vaccine if you have a severe allergic reaction to the vaccine or its components. ?You are not fully vaccinated. ?You are in a facility where COVID-19 is present and: ?Are in close contact with a person who is infected with the COVID-19 virus. ?Are at high risk of being exposed to the COVID-19 virus. ?You are at risk of illness from new variants of the COVID-19 virus. To protect others: If you have symptoms of COVID-19, take steps to prevent the virus from spreading to others. Stay home. Leave your house only to get medical care. Do not use public transit, if possible. Do not travel while you are sick. Wash your hands often with soap and water for at least 20 seconds. If soap and water are not available, use alcohol-based hand electrical equipment assembler. Make sure that all people in your household wash their hands well and often. Cough or sneeze into a tissue or your sleeve or elbow. Do not cough or sneeze into your hand or into the air. Where to find more information Centers for Disease Control and Prevention: www.cdc.gov/coronavirus World Health Organization: www.who.int/health-topics/coronavi ankita Get help right away if: You have trouble breathing. You have pain or pressure in your chest. You are confused. You have bluish lips and fingernails. You have trouble waking from sleep. You have symptoms that get worse. These symptoms may be an emergency. Get help right away. Call 911. Do not wait to see if the symptoms will go away. Do not drive yourself to the hospital. Summary COVID-19 is an infection that is caused by a new coronavirus. Sometimes, there are no symptoms. Other times, symptoms range from mild to severe. Some people with a severe COVID-19 infection develop severe disease. The virus that causes COVID-19 can spread from person to person through droplets or aerosols from breathing, speaking, singing, coughing, or sneezing. Mild symptoms of COVID-19 can be managed at home with rest, fluids, and lmqy-ixo-lkobeed medicines. This information is not intended to replace advice given to you by your health care provider. Make sure you discuss any questions you have with your health care provider. Document Revised: 09/08/2022 Document Reviewed: 09/08/2022 [employer] Patient Education 2022 [employer]. Follow Up Care 05/15/2024 09:30:10 With:Jamison TELLEZ DO, FAAFP, FAM, PED Address: [place] [address]- When: Unknown [facility] 05-15-2024 Note Patient Education Infectious Disease COVID-19 COVID-19, or coronavirus disease 2019, is an infection that is caused by a new (novel) coronavirus called SARS-CoV-2. COVID-19 can cause many symptoms. In some people, the virus may not cause any symptoms. In others, it may cause mild or severe symptoms. Some people with severe infection develop severe disease. What are the causes? This illness is caused by a virus. The virus may be in the air as tiny specks of fluid (aerosols) or droplets, or it may be on surfaces. You may catch the virus by: ? Breathing in droplets from an infected person. Droplets can be spread by a person breathing, speaking, singing, coughing, or sneezing. ? Touching something, like a table or a doorknob, that has virus on it (is contaminated) and then touching your mouth, nose, or eyes. What increases the risk? Risk for infection: You are more likely to get infected with the COVID-19 virus if: ? You are within 6 ft (1.8 m) of a person with COVID-19 for 15 minutes or longer. ? You are providing care for a person who is infected with COVID-19. ? You are in close personal contact with other people. Close personal contact includes hugging, kissing, or sharing eating or drinking utensils. Risk for serious illness caused by COVID-19: You are more likely to get seriously ill from the COVID-19 virus if: ? You have cancer. ? You have a long-term (chronic) disease, such as: ? Chronic lung disease. This includes pulmonary embolism, chronic obstructive pulmonary disease, and cystic fibrosis. ? Long-term disease that lowers your body's ability to fight infection (immunocompromise). ? Serious cardiac conditions, such as heart failure, coronary artery disease, or cardiomyopathy. ? Diabetes. ? Chronic kidney disease. ? Liver diseases. These include cirrhosis, nonalcoholic fatty liver disease, alcoholic liver disease, or autoimmune hepatitis. ? You have obesity. ? You are or were recently . ? You have sickle cell disease. What are the signs or symptoms? Symptoms of this condition can range from mild to severe. Symptoms may appear any time from 2 to 14 days after being exposed to the virus. They include: ? Fever or chills. ? Shortness of breath or trouble breathing. ? Feeling tired or very tired. ? Headaches, body aches, or muscle aches. ? Runny or stuffy nose, sneezing, coughing, or sore throat. ? New loss of taste or smell. This is rare. Some people may also have stomach problems, such as nausea, vomiting, or diarrhea. Other people may not have any symptoms of COVID-19. How is this diagnosed? This condition may be diagnosed by testing samples to check for the COVID-19 virus. The most common tests are the PCR test and the antigen test. Tests may be done in the lab or at home. They include: ? Using a swab to take a sample of fluid from the back of your nose and throat (nasopharyngeal fluid), from your nose, or from your throat. ? Testing a sample of saliva from your mouth. ? Testing a sample of coughed-up mucus from your lungs (sputum). How is this treated? Treatment for COVID-19 infection depends on the severity of the condition. ? Mild symptoms can be managed at home with rest, fluids, and grqe-don-obeiyax medicines. ? Serious symptoms may be treated in a hospital intensive care unit (ICU). Treatment in the ICU may include: ? Supplemental oxygen. Extra oxygen is given through a tube in the nose, a face mask, or a dueñas. ? Medicines. These may include: ? Antivirals, such as monoclonal antibodies. These help your body fight off certain viruses that can cause disease. ? Anti-inflammatories, such as corticosteroids. These reduce inflammation and suppress the immune system. ? Antithrombotics. These prevent or treat blood clots, if they develop. ? Convalescent plasma. This helps boost your immune system, if you have an underlying immunosuppressive condition or are getting immunosuppressive treatments. ? Prone positioning. This means you will lie on your stomach. This helps oxygen to get into your lungs. ? Infection control measures. If you are at risk for more serious illness caused by COVID-19, your health care provider may prescribe two long-acting monoclonal antibodies, given together every 6 months. How is this prevented? To protect yourself: ? Use preventive medicine (pre-exposure prophylaxis). You may get pre-exposure prophylaxis if you have moderate or severe immunocompromise. ? Get vaccinated. Anyone 6 months old or older who meets guidelines can get a COVID-19 vaccine or vaccine series. This includes people who are or making breast milk (lactating). ? Get an added dose of COVID-19 vaccine after your first vaccine or vaccine series if you have moderate to severe immunocompromise. This applies if you have had a solid organ transplant or have been diagnosed with an immunocompromising condit (more content not included)... 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 BPH without urinary obstruction Basal cell carcinoma Cervicalgia Chronic constipation Chronic insomnia Chronic osteoarthritis DDD (degenerative disc disease), cervical Dyshidrotic eczema Edema of both lower legs due to peripheral venous insufficiency Enthesopathy of right shoulder Familial hypercholesterolemia Gouty arthritis of right hand Hypertension Idiopathic small fiber sensory neuropathy Impingement of left shoulder Left lumbar radiculitis 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 Refills: 0. atorvastatin (Lipitor 20 mg Tab) 1 Tablets By Mouth once a day (at bedtime). Refills: 3. cholecalciferol (Vitamin D3 50 mcg (2000 intl units) oral tablet, chewable) 1 Tablets By Mouth every day. flecainide (flecainide 50 mg Tab) 1 Tablets By Mouth every 12 hours. Refills: 0. gabapentin (gabapentin 300 mg Cap) 1 Capsules By Mouth every day. losartan (losartan 50 mg Tab) 1 Tablets By Mouth every day. multivitamin with minerals (One A Day Men?s Complete) By Mouth every day. psyllium (Metamucil 3.4 g/5.2 g oral powder) 3.4 Gram By Mouth every day. tamsulosin (Flomax 0.4 mg Cap) 1 Capsules By Mouth every day. Refills: 3. triamcinolone topical (triamcinolone Top 0.1% Crm 15 gram) Topical BID topically twice daily as needed for itching, red, scaly areas. Refills: 1. zolpidem (zolpidem 12.5 mg oral ER Tab) 1 Tablets By Mouth once a day (at bedtime) as needed for sleep. 30 day supply. Refills: 5. Is there an indication for each medication? (the pharmacist is to determine if the prescribed regimen follows current disease state guidelines) yes Are there any potential concerns regarding specific medications? (are their any barriers preventing the patient from being adherent to their regimen?) no Compliance: Does the patient take their medications daily, as prescribed? yes uses weekly pillminder Does the patient Know Their Numbers? (Pharmacist should ask patient if they know their most recent results and goals for the following tests:) (please note any result noted here are patient reported only) Blood Pressure: yes, result/goal: reports they are within range Glucose: _ A1C: _ Cholesterol: yes, result/goal: says are acceptable, although I don't see recent labs Other: Action Plan: Medication Description of the Problem What the Patient should do What the Pharmacist should do Eliquis monitor continue to monitor for excessive bleeding or bruising ambien monitor continue to be aware of the possibility of increase adverse reactions as age increases - increased drowsiness/dizziness leading to increased falls Pharmacist intervention time: 10 minutes [facility] 03-26-2024 Hospital Discharge instructions Patient Education 03/26/2024 14:35:52 Atrial Fibrillation, Mlot-la-Gnex Atrial Fibrillation Atrial fibrillation is a type of heartbeat that is irregular or fast. If you have this condition, your heart beats without any order. This makes it hard for your heart to pump blood in a normal way. Atrial fibrillation may come and go, or it may become a long-lasting problem. If this condition is not treated, it can put you at higher risk for stroke, heart failure, and other heart problems. What are the causes? This condition may be caused by diseases that damage the heart. They include: High blood pressure. Heart failure. Heart valve disease. Heart surgery. Other causes include: Diabetes. Thyroid disease. Being overweight. Kidney disease. Sometimes the cause is not known. What increases the risk? You are more likely to develop this condition if: You are older. You smoke. You exercise often and very hard. You have a family history of this condition. You are a man. You use drugs. You drink a lot of alcohol. You have lung conditions, such as emphysema, pneumonia, or COPD. You have sleep apnea. What are the signs or symptoms? Common symptoms of this condition include: A feeling that your heart is beating very fast. Chest pain or discomfort. Feeling short of breath. Suddenly feeling light-headed or weak. Getting tired easily during activity. Fainting. Sweating. In some cases, there are no symptoms. How is this treated? Treatment for this condition depends on underlying conditions and how you feel when you have atrial fibrillation. They include: Medicines to: ?Prevent blood clots. ?Treat heart rate or heart rhythm problems. Using devices, such as a pacemaker, to correct heart rhythm problems. Doing surgery to remove the part of the heart that sends bad signals. Closing an area where clots can form in the heart (left atrial appendage). In some cases, your doctor will treat other underlying conditions. Follow these instructions at home: Medicines Take eyhe-wqu-ataonfv and prescription medicines only as told by your doctor. Do not take any new medicines without first talking to your doctor. If you are taking blood thinners: ?Talk with your doctor before you take any medicines that have aspirin or NSAIDs, such as ibuprofen, in them. ?Take your medicine exactly as told by your doctor. Take it at the same time each day. ?Avoid activities that could hurt or bruise you. Follow instructions about how to prevent falls. ?Wear a bracelet that says you are taking blood thinners. Or, carry a card that lists what medicines you take. Lifestyle Do not use any products that have nicotine or tobacco in them. These include cigarettes, e-cigarettes, and chewing tobacco. If you need help quitting, ask your doctor. Eat heart-healthy foods. Talk with your doctor about the right eating plan for you. Exercise regularly as told by your doctor. Do not drink alcohol. Lose weight if you are overweight. Do not use drugs, including cannabis. General instructions If you have a condition that causes breathing to stop for a short period of time (apnea), treat it as told by your doctor. Keep a healthy weight. Do not use diet pills unless your doctor says they are safe for you. Diet pills may make heart problems worse. Keep all follow-up visits as told by your doctor. This is important. Contact a doctor if: You notice a change in the speed, rhythm, or strength of your heartbeat. You are taking a blood-thinning medicine and you get more bruising. You get tired more easily when you move or exercise. You have a sudden change in weight. Get help right away if: You have pain in your chest or your belly (abdomen). You have trouble breathing. You have side effects of blood thinners, such as blood in your vomit, poop (stool), or pee (urine), or bleeding that cannot stop. You have any signs of a stroke. BE FAST is an easy way to remember the main warning signs: ?B - Balance. Signs are dizziness, sudden trouble walking, or loss of balance. ?E - Eyes. Signs are trouble seeing or a change in how you see. ?F - Face. Signs are sudden weakness or loss of feeling in the face, or the face or eyelid drooping on one side. ?A - Arms. Signs are weakness or loss of feeling in an arm. This happens suddenly and usually on one side of the body. ?S - Speech. Signs are sudden trouble speaking, slurred speech, or trouble understanding what people say. ?T - Time. Time to call emergency services. Write down what time symptoms started. You have other signs of a stroke, such as: ?A sudden, very bad headache with no known cause. ?Feeling like you may vomit (nausea). ?Vomiting. ?A seizure. These symptoms may be an emergency. Do not wait to see if the symptoms will go away. Get medical help right away. Call your local emergency services (911 in the [place] Do not drive yourself to the hospital. Summary Atrial fibrillation is a type of heartbeat that is irregular or fast. You are at higher risk of this condition if you smoke, are older, have diabetes, or are overweight. Follow your doctor's instructions about medicines, diet, exercise, and follow-up visits. Get help right away if you have signs or symptoms of a stroke. Get help right away if you cannot catch your breath, or you have chest pain or discomfort. This information is not intended to replace advice given to you by your health care provider. Make sure you discuss any questions you have with your health care provider. Document Revised: 03/11/2020 Document Reviewed: 03/11/2020 [employer] Patient Education 2022 [employer]. Follow Up Care 12/19/2023 14:38:39 With:GEOFF PINTO FAAFP, VARINDER Alanis, PED Address: [address] [place] [address] Aiyana, [facility] A [place] [id number]- When:Within 3 Month(s) [facility] 02-06-2024 History of Present illness Narrative Subjective Jose Rocha is a 83 y.o. male Chief Complaint Follow-up HPI Review of Systems All other systems reviewed and are negative. Patient returns in follow-up of problems as noted. In the interim he is done well with no recurrent atrial arrhythmia symptomatology and because of this and an EKG today that demonstrates maintenance of sinus rhythm we feel there has been success at maintaining rhythm on current regimen and because of this no adjustments are recommended. EKG is evaluated for QT interval and it is acceptable. Treatment of his hypertension is also reviewed and felt to be adequate and appropriate and because of all the above we suggest no changes in therapy. The merits of diet and weight loss were advocated Vitals: 02/06/24 0957 BP: 112/64 BP Location: Left arm Patient Position: Sitting Pulse: 67 Weight: 87.1 kg (192 lb) Height: 1.778 m (5' 10 ) EKG done in office today Objective Physical Exam Constitutional: Appearance: Normal appearance. HENT: Nose: Nose normal. Neck: Vascular: No carotid bruit. Cardiovascular: Rate and Rhythm: Normal rate. Pulses: Normal pulses. Heart sounds: Normal heart sounds. Pulmonary: Effort: Pulmonary effort is normal. Abdominal: General: Bowel sounds are normal. Palpations: Abdomen is soft. Musculoskeletal: General: Normal range of motion. Cervical back: Normal range of motion. Right lower leg: No edema. Left lower leg: No edema. Skin: General: Skin is warm and dry. Neurological: General: No focal deficit present. Mental Status: He is alert. Psychiatric: Mood and Affect: Mood normal. Behavior: Behavior normal. Thought Content: Thought content normal. Judgment: Judgment normal. Allergies Patient has no known allergies. Current Medications Current Outpatient Medications: apixaban (Eliquis) 5 mg tablet, Take 1 tablet (5 mg) by mouth 2 times a day., Disp: , Rfl: cholecalciferol (Vitamin D-3) 50 mcg (2,000 unit) capsule, 1 capsule (50 mcg) early in the morning.., Disp: , Rfl: flecainide (Tambocor) 50 mg tablet, Take 1 tablet (50 mg) by mouth every 12 hours., Disp: , Rfl: Lipitor 20 mg tablet, Take 1 tablet (20 mg) by mouth once daily., Disp: , Rfl: losartan (Cozaar) 50 mg tablet, Take 1 tablet (50 mg) by mouth once daily., Disp: , Rfl: multivitamin tablet, Take 1 tablet by mouth once daily., Disp: , Rfl: tamsulosin (Flomax) 0.4 mg 24 hr capsule, Take 1 capsule (0.4 mg) by mouth 3 times a week., Disp: , Rfl: Assessment/Plan 1. Essential hypertension, benign Review of treatment strategy demonstrates adequate control 2. Paroxysmal atrial fibrillation (Multi) Eradicated with flecainide therapy. QTc interval acceptable 3. Anticoagulated Chronic, well-tolerated without complaint 4. Never smoked cigarettes Noted Scribe Attestation By signing my name below, IAmy LPN, Scribe attest that this documentation has been prepared under the direction and in the presence of Atilio Evans MD. Provider Attestation - Scribe documentation All medical record entries made by the Scribe were at my direction and personally dictated by me. I have reviewed the chart and agree that the record accurately reflects my personal performance of the history, physical exam, discussion and plan. documented in this encounter [facility] Work Phone: 02-06-2024 Instructions Amy Bishop LPN - 02/06/2024 9:40 AM EDT Please bring all medicines, vitamins, and herbal supplements with you when you come to the office. Prescriptions will not be filled unless you are compliant with your follow up appointments or have a follow up appointment scheduled as per instruction of your physician. Refills should be requested at the time of your visit. Fall Prevention Education Given BMI was above normal measurement. Current weight: 87.1 kg (192 lb) Weight change since last visit (-) denotes wt loss 5 lbs Weight loss needed to achieve BMI 25: 18.1 Lbs Weight loss needed to achieve BMI 30: -16.6 Lbs Provided instructions on dietary changes Provided instructions on exercise. documented in this encounter [facility] Work Phone: 01-07-2024 Hospital Discharge instructions Patient Education 01/07/2024 13:58:11 Musculoskeletal Pain Musculoskeletal Pain Musculoskeletal pain refers to aches and pains in your bones, joints, muscles, and the tissues that surround them. This pain can occur in any part of the body. It can last for a short time (acute) or a long time (chronic). A physical exam, lab tests, and imaging studies may be done to find the cause of your musculoskeletal pain. Follow these instructions at home: Lifestyle Try to control or lower your stress levels. Stress increases muscle tension and can worsen musculoskeletal pain. It is important to recognize when you are anxious or stressed and learn ways to manage it. This may include: ?Meditation or yoga. ?Cognitive or behavioral therapy. ?Acupuncture or massage therapy. You may continue all activities unless the activities cause more pain. When the pain gets better, slowly resume your normal activities. Gradually increase the intensity and duration of your activities or exercise. Managing pain, stiffness, and swelling Treatment may include medicines for pain and inflammation that are taken by mouth or applied to the skin. Take mobg-dgh-kmouovb and prescription medicines only as told by your health care provider. When your pain is severe, bed rest may be helpful. Lie or sit in any position that is comfortable, but get out of bed and walk around at least every couple of hours. If directed, apply heat to the affected area as often as told by your health care provider. Use the heat source that your health care provider recommends, such as a moist heat pack or a heating pad. ?Place a towel between your skin and the heat source. ?Leave the heat on for 20 30 minutes. ?Remove the heat if your skin turns bright red. This is especially important if you are unable to feel pain, heat, or cold. You may have a greater risk of getting burned. If directed, put ice on the painful area. To do this: ?Put ice in a plastic bag. ?Place a towel between your skin and the bag. ?Leave the ice on for 20 minutes, 2 3 times a day. ?Remove the ice if your skin turns bright red. This is very important. If you cannot feel pain, heat, or cold, you have a greater risk of damage to the area. General instructions Your health care provider may recommend that you see a physical therapist. This person can help you come up with a safe exercise program. If told by your health care provider, do physical therapy exercises to improve movement and strength in the affected area. Keep all follow-up visits. This is important. This includes any physical therapy visits. Contact a health care provider if: Your pain gets worse. Medicines do not help ease your pain. You cannot use the part of your body that hurts, such as your arm, leg, or neck. You have trouble sleeping. You have trouble doing your normal activities. Get help right away if: You have a new injury and your pain is worse or different. You feel numb or you have tingling in the painful area. Summary Musculoskeletal pain refers to aches and pains in your bones, joints, muscles, and the tissues that surround them. This pain can occur in any part of the body. Your health care provider may recommend that you see a physical therapist. This person can help you come up with a safe exercise program. Do any exercises as told by your physical therapist. Lower your stress level. Stress can worsen musculoskeletal pain. Ways to lower stress may include meditation, yoga, cognitive or behavioral therapy, acupuncture, and massage therapy. This information is not intended to replace advice given to you by your health care provider. Make sure you discuss any questions you have with your health care provider. Document Revised: 01/21/2021 Document Reviewed: 12/30/2020 [employer] Patient Education 2022 [employer] Follow Up Care 01/07/2024 13:07:05 With:Jamison TELLEZ DO, FAAFP, FAM, PED Address: [place] [address]- When:01/10/[address] [facility] 01-07-2024 Evaluation + Plan note Extrac carola from: Title:ED Note Author:Peggy Jerry PA-C Date :01/07/24 1. Left foot pain (M79.672: Pain in left foot) Ordered: predniSONE, See Instructions, 2 PO x 3 days then 1 PO x 3 days with food or milk then 1/2 PO x 4 days with food or milk, # 11 tab(s), Refills(s) 0, Pharmacy: [id number], [id number], cm, 01/07/24 13:15:00 EDT, Height/Length Dosing, 87, kg, 01/07/24 13:... Orders: XR Foot 3+ Views Left Future Appointments Appointment Date:03/26/2024 01:00:00 PM Scheduled Provider:Jamison TELLEZ DO, FAAFP Location:[facility] Appointment Type: Open Appointment Date:07/15/2024 02:30:00 PM Scheduled Provider: Location:[facility] Appointment Type: Medicare Wellness Subsequent Future Scheduled Tests Laboratory* Thyroid Stimulating Hormone 03/07/23 * Free T4 03/07/[address] [facility]03-19-2024 Hospital Discharge instructions Patient Education 12/19/2023 14:41:33 Neck Exercises Neck Exercises Ask your health care provider which exercises are safe for you. Do exercises exactly as told by your health care provider and adjust them as directed. It is normal to feel mild stretching, pulling, tightness, or discomfort as you do these exercises. Stop right away if you feel sudden pain or your pain gets worse. Do not begin these exercises until told by your health care provider. Neck exercises can be important for many reasons. They can improve strength and maintain flexibility in your neck, which will help your upper back and prevent neck pain. Stretching exercises Rotation neck stretching 1.Sit in a chair or stand up. 2.Place your feet flat on the floor, shoulder-width apart. 3.Slowly turn your head (rotate) to the right until a slight stretch is felt. Turn it all the way to the right so you can look over your right shoulder. Do not tilt or tip your head. 4.Hold this position for 10 30 seconds. 5.Slowly turn your head (rotate) to the left until a slight stretch is felt. Turn it all the way tothe left so you can look over your left shoulder. Do not tilt or tip your head. 6.Hold this position for 10 30 seconds. Repeat times. Complete this exercise times a day. Neck retraction 1.Sit in a sturdy chair or stand up. 2.Look straight ahead. Do not bend your neck. 3.Use your fingers to push your chin backward (retraction). Do not bend your neck for this movement. Continue to face straight ahead. If you are doing the exercise properly, you will feel a slight sensation in your throat and a stretch at the back of your neck. 4.Hold the stretch for 1 2 seconds. Repeat times. Complete this exercise times a day. Strengthening exercises Neck press 1.Lie on your back on a firm bed or on the floor with a pillow under your head. 2.Use your neck muscles to push your head down on the pillow and straighten your spine. 3.Hold the position as well as you can. Keep your head facing up (in a neutral position) and your chin tucked. 4.Slowly count to 5 while holding this position. Repeat times. Complete this exercise times a day. Isometrics These are exercises in which you strengthen the muscles in your neck while keeping your neck still (isometrics). 1.Sit in a supportive chair and place your hand on your forehead. 2.Keep your head and face facing straight ahead. Do not flex or extend your neck while doing isometrics. 3.Push forward with your head and neck while pushing back with your hand. Hold for 10 seconds. 4.Do the sequence again, this time putting your hand against the back of your head. Use your head and neck to push backward against the hand pressure. 5.Finally, do the same exercise on either side of your head, pushing sideways against the pressure of your hand. Repeat times. Complete this exercise times a day. Prone head lifts 1.Lie face-down (prone position), resting on your elbows so that your chest and upper back are raised. 2.Start with your head facing downward, near your chest. Position your chin either on or near your chest. 3.Slowly lift your head upward. Lift until you are looking straight ahead. Then continue lifting your head as far back as you can comfortably stretch. 4.Hold your head up for 5 seconds. Then slowly lower it to your starting position. Repeat times. Complete this exercise times a day. Supine head lifts 1.Lie on your back (supine position), bending your knees to point to the ceiling and keeping your feet flat on the floor. 2.Lift your head slowly off the floor, raising your chin toward your chest. 3.Hold for 5 seconds. Repeat times. Complete this exercise times a day. Scapular retraction 1.Stand with your arms at your sides. Look straight ahead. 2.Slowly pull both shoulders (scapulae) backward and downward (retraction) until you feel a stretchbetween your shoulder blades in your upper back. 3.Hold for 10 30 seconds. 4.Relax and repeat. Repeat times. Complete this exercise times a day. Contact a health care provider if: Your neck pain or discomfort gets worse when you do an exercise. Your neck pain or discomfort does not improve within 2 hours after you exercise. If you have any of these problems, stop exercising right away. Do not do the exercises again unlessyour health care provider says that you can. Get help right away if: You develop sudden, severe neck pain. If this happens, stop exercising right away. Do not do the exercises again unless your health care provider says that you can. This information is not intended to replace advice given to you by your health care provider. Make sure you discuss any questions you have with your health care provider. Document Revised: 03/15/2022 Document Reviewed: 03/15/2022 [employer] Patient Education 2022 [employer]. 12/19/2023 14:41:31 Musculoskeletal Pain Musculoskeletal Pain Musculoskeletal pain refers to aches and pains in your bones, joints, muscles, and the tissues thatsurround them. This pain can occur in any part of the body. It can last for a short time (acute) ora long time (chronic). A physical exam, lab tests, and imaging studies may be done to find the cause of your musculoskeletal pain. Follow these instructions at home: Lifestyle Try to control or lower your stress levels. Stress increases muscle tension and can worsen musculoskeletal pain. It is important to recognize when you are anxious or stressed and learn ways to manageit. This may include: ?Meditation or yoga. ?Cognitive or behavioral therapy. ?Acupuncture or massage therapy. You may continue all activities unless the activities cause more pain. When the pain gets better, slowly resume your normal activities. Gradually increase the intensity and duration of your activities or exercise. Managing pain, stiffness, and swelling Treatment may include medicines for pain and inflammation that are taken by mouth or applied to theskin. Take cphs-viz-zuyebfr and prescription medicines only as told by your health care provider. When your pain is severe, bed rest may be helpful. Lie or sit in any position that is comfortable, but get out of bed and walk around at least every couple of hours. If directed, apply heat to the affected area as often as told by your health care provider. Use theheat source that your health care provider recommends, such as a moist heat pack or a heating pad. ?Place a towel between your skin and the heat source. ?Leave the heat on for 20 30 minutes. ?Remove the heat if your skin turns bright red. This is especially important if you are unable to feel pain, heat, or cold. You may have a greater risk of getting burned. If directed, put ice on the painful area. To do this: ?Put ice in a plastic bag. ?Place a towel between your skin and the bag. ?Leave the ice on for 20 minutes, 2 3 times a day. ?Remove the ice if your skin turns bright red. This is very important. If you cannot feel pain, heat, or cold, you have a greater risk of damage to the area. General instructions Your health care provider may recommend that you see a physical therapist. This person can help youcome up with a safe exercise program. If told by your health care provider, do physical therapy exercises to improve movement and strength in the affected area. Keep all follow-up visits. This is important. This includes any physical therapy visits. Contact a health care provider if: Your pain gets worse. Medicines do not help ease your pain. You cannot use the part of your body that hurts, such as your arm, leg, or neck. You have trouble sleeping. You have trouble doing your normal activities. Get help right away if: You have a new injury and your pain is worse or different. You feel numb or you have tingling in the painful area. Summary Musculoskeletal pain refers to aches and pains in your bones, joints, muscles, and the tissues thatsurround them. This pain can occur in any part of the body. Your health care provider may recommend that you see a physical therapist. This person can help youcome up with a safe exercise program. Do any exercises as told by your physical therapist. Lower your stress level. Stress can worsen musculoskeletal pain. Ways to lower stress may include meditation, yoga, cognitive or behavioral therapy, acupuncture, and massage therapy. This information is not intended to replace advice given to you by your health care provider. Make sure you discuss any questions you have with your health care provider. Document Revised: 01/21/2021 Document Reviewed: 12/30/2020 [employer] Patient Education 2022 [employer]. Follow Up Care 09/18/2023 14:06:48 With:GEOFF PINTO FAAFP, Jamison Campos, VARINDER, PED Address: Nacho [address], [facility] [place] [address]- When:Within 3 Month(s) [facility] 02-19-2024 Hospital Discharge instructions Patient Education 11/20/2023 13:59:51 Cellulitis, Adult Cellulitis, Adult Cellulitis is a skin infection. The infected area is usually warm, red, swollen, and tender. This condition occurs most often in the arms and lower legs. The infection can travel to the muscles, blood, and underlying tissue and become serious. It is very important to get treated for this condition. What are the causes? Cellulitis is caused by bacteria. The bacteria enter through a break in the skin, such as a cut, burn, insect bite, open sore, or crack. What increases the risk? This condition is more likely to occur in people who: Have a weak body defense system (immune system). Have open wounds on the skin, such as cuts, garcia, bites, and scrapes. Bacteria can enter the body through these open wounds. Are older than 60 years of age. Have diabetes. Have a type of long-lasting (chronic) liver disease (cirrhosis) or kidney disease. Are obese. Have a skin condition such as: ?Itchy rash (eczema). ?Slow movement of blood in the veins (venous stasis). ?Fluid buildup below the skin (edema). Have had radiation therapy. Use IV drugs. What are the signs or symptoms? Symptoms of this condition include: Redness, streaking, or spotting on the skin. Swollen area of the skin. Tenderness or pain when an area of the skin is touched. Warm skin. A fever. Chills. Blisters. How is this diagnosed? This condition is diagnosed based on a medical history and physical exam. You may also have tests, including: Blood tests. Imaging tests. How is this treated? Treatment for this condition may include: Medicines, such as antibiotic medicines or medicines to treat allergies (antihistamines). Supportive care, such as rest and application of cold or warm cloths (compresses) to the skin. Hospital care, if the condition is severe. The infection usually starts to get better within 1 2 days of treatment. Follow these instructions at home: Medicines Take pkpg-axg-eyatotb and prescription medicines only as told by your health care provider. If you were prescribed an antibiotic medicine, take it as told by your health care provider. Do notstop taking the antibiotic even if you start to feel better. General instructions Drink enough fluid to keep your urine pale yellow. Do not touch or rub the infected area. Raise (elevate) the infected area above the level of your heart while you are sitting or lying down. Apply warm or cold compresses to the affected area as told by your health care provider. Keep all follow-up visits as told by your health care provider. This is important. These visits letyour health care provider make sure a more serious infection is not developing. Contact a health care provider if: You have a fever. Your symptoms do not begin to improve within 1 2 days of starting treatment. Your bone or joint underneath the infected area becomes painful after the skin has healed. Your infection returns in the same area or another area. You notice a swollen bump in the infected area. You develop new symptoms. You have a general ill feeling (malaise) with muscle aches and pains. Get help right away if: Your symptoms get worse. You feel very sleepy. You develop vomiting or diarrhea that persists. You notice red streaks coming from the infected area. Your red area gets larger or turns dark in color. These symptoms may represent a serious problem that is an emergency. Do not wait to see if the symptoms will go away. Get medical help right away. Call your local emergency services (911 in the [place] Do not drive yourself to the hospital. Summary Cellulitis is a skin infection. This condition occurs most often in the arms and lower legs. Treatment for this condition may include medicines, such as antibiotic medicines or antihistamines. Take fgag-dhx-yixubdj and prescription medicines only as told by your health care provider. If you were prescribed an antibiotic medicine, do not stop taking the antibiotic even if you start to feel better. Contact a health care provider if your symptoms do not begin to improve within 1 2 days of startingtreatment or your symptoms get worse. Keep all follow-up visits as told by your health care provider. This is important. These visits letyour health care provider make sure that a more serious infection is not developing. This information is not intended to replace advice given to you by your health care provider. Make sure you discuss any questions you have with your health care provider. Document Revised: 06/29/2022 Document Reviewed: 06/30/2022 [employer] Patient Education 2022 [employer] 11/18/2023 11:54:07 Cough, Adult, Lpba-lc-Mwvu Cough, Adult A cough helps to clear your throat and lungs. A cough may be a sign of an illness or another medical condition. An acute cough may only last 2 3 weeks, while a chronic cough may last 8 or more weeks. Many things can cause a cough. They include: Germs (viruses or bacteria) that attack the airway. Breathing in things that bother (irritate) your lungs. Allergies. Asthma. Mucus that runs down the back of your throat (postnasal drip). Smoking. Acid backing up from the stomach into the tube that moves food from the mouth to the stomach (gastroesophageal reflux). Some medicines. Lung problems. Other medical conditions, such as heart failure or a blood clot in the lung (pulmonary embolism). Follow these instructions at home: Medicines Take kmnh-ssm-tggaoyt and prescription medicines only as told by your doctor. Talk with your doctor before you take medicines that stop a cough (cough suppressants). Lifestyle Do not smoke, and try not to be around smoke. Do not use any products that contain nicotine or tobacco, such as cigarettes, e-cigarettes, and chewing tobacco. If you need help quitting, ask your doctor. Drink enough fluid to keep your pee (urine) pale yellow. Avoid caffeine. Do not drink alcohol if your doctor tells you not to drink. General instructions Watch for any changes in your cough. Tell your doctor about them. Always cover your mouth when you cough. Stay away from things that make you cough, such as perfume, candles, campfire smoke, or cleaning products. If the air is dry, use a cool mist vaporizer or humidifier in your home. If your cough is worse at night, try using extra pillows to raise your head up higher while you sleep. Rest as needed. Keep all follow-up visits as told by your doctor. This is important. Contact a doctor if: You have new symptoms. You cough up pus. Your cough does not get better after 2 3 weeks, or your cough gets worse. Cough medicine does not help your cough and you are not sleeping well. You have pain that gets worse or pain that is not helped with medicine. You have a fever. You are losing weight and you do not know why. You have night sweats. Get help right away if: You cough up blood. You have trouble breathing. Your heartbeat is very fast. These symptoms may be an emergency. Do not wait to see if the symptoms will go away. Get medical help right away. Call your local emergency services (911 in the [place] Do not drive yourself to the hospital. Summary A cough helps to clear your throat and lungs. Many things can cause a cough. Take zfxc-gep-mwojvrr and prescription medicines only as told by your doctor. Always cover your mouth when you cough. Contact a doctor if you have new symptoms or you have a cough that does not get better or gets worse. This information is not intended to replace advice given to you by your health care provider. Make sure you discuss any questions you have with your health care provider. Document Revised: 11/06/2020 Document Reviewed: 10/07/2019 [employer] Patient Education 2022 [employer]. 11/18/2023 11:54:06 Cough, Adult Cough, Adult Coughing is a reflex that clears your throat and your airways (respiratory system). Coughing helps to heal and protect your lungs. It is normal to cough occasionally, but a cough that happens with other symptoms or lasts a long time may be a sign of a condition that needs treatment. An acute cough may only last 2 3 weeks, while a chronic cough may last 8 or more weeks. Coughing is commonly caused by: Infection of the respiratory systemby viruses or bacteria. Breathing in substances that irritate your lungs. Allergies. Asthma. Mucus that runs down the back of your throat (postnasal drip). Smoking. Acid backing up from the stomach into the esophagus (gastroesophageal reflux). Certain medicines. Chronic lung problems. Other medical conditions such as heart failure or a blood clot in the lung (pulmonary embolism). Follow these instructions at home: Medicines Take azro-vwr-axbibvm and prescription medicines only as told by your health care provider. Talk with your health care provider before you take a cough suppressant medicine. Lifestyle Avoid cigarette smoke. Do not use any products that contain nicotine or tobacco, such as cigarettes, e-cigarettes, and chewing tobacco. If you need help quitting, ask your health care provider. Drink enough fluid to keep your urine pale yellow. Avoid caffeine. Do not drink alcohol if your health care provider tells you not to drink. General instructions Pay close attention to changes in your cough. Tell your health care provider about them. Always cover your mouth when you cough. Avoid things that make you cough, such as perfume, candles, cleaning products, or campfire or tobacco smoke. If the air is dry, use a cool mist vaporizer or humidifier in your bedroom or your home to help loosen secretions. If your cough is worse at night, try to sleep in a semi-upright position. Rest as needed. Keep all follow-up visits as told by your health care provider. This is important. Contact a health care provider if you: Have new symptoms. Cough up pus. Have a cough that does not get better after 2 3 weeks or gets worse. Cannot control your cough with cough suppressant medicines and you are losing sleep. Have pain that gets worse or pain that is not helped with medicine. Have a fever. Have unexplained weight loss. Have night sweats. Get help right away if: You cough up blood. You have difficulty breathing. Your heartbeat is very fast. These symptoms may represent a serious problem that is an emergency. Do not wait to see if the symptoms will go away. Get medical help right away. Call your local emergency services (911 in the [place] Do not drive yourself to the hospital. Summary Coughing is a reflex that clears your throat and your airways. It is normal to cough occasionally, but a cough that happens with other symptoms or lasts a long time may be a sign of a condition that needs treatment. Take tbkf-fnx-fqemppy and prescription medicines only as told by your health care provider. Always cover your mouth when you cough. Contact a health care provider if you have new symptoms or a cough that does not get better after 23 weeks or gets worse. This information is not intended to replace advice given to you by your health care provider. Make sure you discuss any questions you have with your health care provider. Document Revised: 10/07/2019 Document Reviewed: 10/07/2019 [employer] Patient Education 2022 [employer]. Follow Up Care 11/17/2023 13:10:21 With:Subha Johnson Address: [facility] [address], [facility] [place] [address]- When: only if needed [facility] 02-15-2024 Hospital Discharge instructions Patient Education 11/16/2023 13:28:30 Viral Respiratory Infection, Zcro-Jt-Gvqv Viral Respiratory Infection A viral respiratory infection is an illness that affects parts of the body that are used for breathing. These include the lungs, nose, and throat. It is caused by a germ called a virus. Some examples of this kind of infection are: A cold. The flu (influenza). A respiratory syncytial virus (RSV) infection. What are the causes? This condition is caused by a virus. It spreads from person to person. You can get the virus if: You breathe in droplets from someone who is sick. You come in contact with people who are sick. You touch mucus or other fluid from a person who is sick. What are the signs or symptoms? Symptoms of this condition include: A stuffy or runny nose. A sore throat. A cough. Shortness of breath. Trouble breathing. Yellow or green fluid in the nose. Other symptoms may include: A fever. Sweating or chills. Tiredness (fatigue). Achy muscles. A headache. How is this treated? This condition may be treated with: Medicines that treat viruses. Medicines that make it easy to breathe. Medicines that are sprayed into the nose. Acetaminophen or NSAIDs, such as ibuprofen, to treat fever. Follow these instructions at home: Managing pain and congestion Take pivf-qor-oxonpve and prescription medicines only as told by your doctor. If you have a sore throat, gargle with salt water. Do this 3 4 times a day or as needed. ?To make salt water, dissolve 1 tsp (3 6 g) of salt in 1 cup (237 mL) of warm water. Make sure thatall the salt dissolves. Use nose drops made from salt water. This helps with stuffiness (congestion). It also helps soften the skin around your nose. Take 2 tsp (10 mL) of honey at bedtime to lessen coughing at night. ?Do not give honey to children who are younger than 1 year old. Drink enough fluid to keep your pee (urine) pale yellow. General instructions Rest as much as possible. Do not drink alcohol. Do not smoke or use any products that contain nicotine or tobacco. If you need help quitting, ask your doctor. Keep all follow-up visits. How is this prevented? Get a flu shot every year. Ask your doctor when you should get your flu shot. Do not let other people get your germs. If you are sick: ?Wash your hands with soap and water often. Wash your hands after you cough or sneeze. Wash hands for at least 20 seconds. If you cannot use soap and water, use hand electrical equipment assembler. ?Cover your mouth when you cough. Cover your nose and mouth when you sneeze. ?Do not share cups or eating utensils. ?Clean commonly used objects often. Clean commonly touched surfaces. ?Stay home from work or school. Avoid contact with people who are sick during cold and flu season. This is in fall and winter. Get help if: Your symptoms last for 10 days or longer. Your symptoms get worse over time. You have very bad pain in your face or forehead. Parts of your jaw or neck get very swollen. You have shortness of breath. Get help right away if: You feel pain or pressure in your chest. You have trouble breathing. You faint or feel like you will faint. You keep vomiting and it gets worse. You feel confused. These symptoms may be an emergency. Get help right away. Call your local emergency services (911 int [place] Do not wait to see if the symptoms will go away. Do not drive yourself to the hospital. Summary A viral respiratory infection is an illness that affects parts of the body that are used for breathing. Examples of this illness include a cold, the flu, and a respiratory syncytial virus (RSV) infection. The infection can cause a runny nose, cough, sore throat, and fever. Follow what your doctor tells you about taking medicines, drinking lots of fluid, washing your hands, resting at home, and avoiding people who are sick. This information is not intended to replace advice given to you by your health care provider. Make sure you discuss any questions you have with your health care provider. Document Revised: 12/23/2021 Document Reviewed: 12/23/2021 [employer] Patient Education 2022 [employer]. [facility] [id number] Hospital Discharge instructions Patient Education 11/13/2023 14:21:47 Cough, Adult Cough, Adult Coughing is a reflex that clears your throat and your airways (respiratory system). Coughing helps to heal and protect your lungs. It is normal to cough occasionally, but a cough that happens with other symptoms or lasts a long time may be a sign of a condition that needs treatment. An acute cough may only last 2 3 weeks, while a chronic cough may last 8 or more weeks. Coughing is commonly caused by: Infection of the respiratory systemby viruses or bacteria. Breathing in substances that irritate your lungs. Allergies. Asthma. Mucus that runs down the back of your throat (postnasal drip). Smoking. Acid backing up from the stomach into the esophagus (gastroesophageal reflux). Certain medicines. Chronic lung problems. Other medical conditions such as heart failure or a blood clot in the lung (pulmonary embolism). Follow these instructions at home: Medicines Take qixt-sdn-didrfxo and prescription medicines only as told by your health care provider. Talk with your health care provider before you take a cough suppressant medicine. Lifestyle Avoid cigarette smoke. Do not use any products that contain nicotine or tobacco, such as cigarettes, e-cigarettes, and chewing tobacco. If you need help quitting, ask your health care provider. Drink enough fluid to keep your urine pale yellow. Avoid caffeine. Do not drink alcohol if your health care provider tells you not to drink. General instructions Pay close attention to changes in your cough. Tell your health care provider about them. Always cover your mouth when you cough. Avoid things that make you cough, such as perfume, candles, cleaning products, or campfire or tobacco smoke. If the air is dry, use a cool mist vaporizer or humidifier in your bedroom or your home to help loosen secretions. If your cough is worse at night, try to sleep in a semi-upright position. Rest as needed. Keep all follow-up visits as told by your health care provider. This is important. Contact a health care provider if you: Have new symptoms. Cough up pus. Have a cough that does not get better after 2 3 weeks or gets worse. Cannot control your cough with cough suppressant medicines and you are losing sleep. Have pain that gets worse or pain that is not helped with medicine. Have a fever. Have unexplained weight loss. Have night sweats. Get help right away if: You cough up blood. You have difficulty breathing. Your heartbeat is very fast. These symptoms may represent a serious problem that is an emergency. Do not wait to see if the symptoms will go away. Get medical help right away. Call your local emergency services (911 in the [place] Do not drive yourself to the hospital. Summary Coughing is a reflex that clears your throat and your airways. It is normal to cough occasionally, but a cough that happens with other symptoms or lasts a long time may be a sign of a condition that needs treatment. Take mloa-buc-nwmwoam and prescription medicines only as told by your health care provider. Always cover your mouth when you cough. Contact a health care provider if you have new symptoms or a cough that does not get better after 23 weeks or gets worse. This information is not intended to replace advice given to you by your health care provider. Make sure you discuss any questions you have with your health care provider. Document Revised: 10/07/2019 Document Reviewed: 10/07/2019 [employer] Patient Education 2022 [employer] [facility] History of Present illness Narrative* FAUZIA Ellis - 11/10/2023 11:15 AM EST GENERAL HISTORY AND PHYSICAL: NAME: Jose Rocha : 1940 HISTORY OF PRESENT ILLNESS: Jose Rocha is an 82 y.o. male is here for orthopedic evaluation left lower leg skin tears from previous fall injury he was concerned because he started getting some erythema around the wounds however they are healing and have no drainage. He denies any fever chills associated with his symptoms he is wearing compressive socks for his neuropathy. He has been doing the Xeroform dressings daily and cleansing this at the same time with soap and water. PAST MEDICAL HISTORY: Past Medical History: Diagnosis Date A-fib ([facility]) 2016 Atopic eczema BPH with elevated PSA DDD (degenerative disc disease), cervical Depression (CMS/HCC) Diverticulosis Fractured sternum GERD (gastroesophageal reflux disease) Gouty arthritis Hearing loss Hereditary sensorimotor neuropathy HLD (hyperlipidemia) ([facility]) HTN (hypertension) ([facility]) Hx of scarlet fever IBS (irritable bowel syndrome) Insomnia HAYDER (obstructive sleep apnea) Sternum fx 04/2019 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[facility]) Trigeminal neuralgia ([facility]) Urinary retention PAST SURGICAL HISTORY: Past Surgical History: Procedure Laterality Date APPENDECTOMY 2002 BLADDER REPAIR 07/2012 CARPAL TUNNEL RELEASE CATARACT EXTRACTION W/ INTRAOCULAR LENS IMPLANT Bilateral CHOLECYSTECTOMY 07/2002 COLONOSCOPY W/ POLYPECTOMY 1999, 2006, 2008 HIATAL HERNIA REPAIR 11/1996 STEPHANY FUNDOPLICATION 1994 OTHER SURGICAL HISTORY 01/31/2008 r/o BCCA AK TOTAL HIP ARTHROPLASTY Left 02/02/2016 AK TOTAL KNEE ARTHROPLASTY Right 07/18/2017 TURP / TRANSURETHRAL INCISION / DRAINAGE PROSTATE 07/2012 SOCIAL HISTORY: Social History Occupational History Not on file Tobacco Use Smoking status: Never Smokeless tobacco: Never Vaping Use Vaping Use: Never used Substance and Sexual Activity Alcohol use: Never Drug use: Never Sexual activity: Defer ALLERGIES: No Known Allergies MEDICATIONS: Current Outpatient Medications Medication Instructions aspirin 81 mg, Oral, Daily cholecalciferol (Vitamin D-3) 50 MCG (2000 UT) capsule 1 capsule, Every 24 hours clindamycin (CLEOCIN) 300 mg, Oral, 3 times daily Eliquis 5 MG tablet flecainide (TAMBOCOR) 50 mg, Oral, Every 12 hours gabapentin (NEURONTIN) 300 mg, Oral, Daily Lipitor 20 MG tablet Every 24 hours losartan (COZAAR) 50 mg, Oral, Daily Multiple Vitamin (multivitamin) tablet 1 tablet, Oral, Daily tamsulosin (FLOMAX) 0.4 mg, Oral, Daily zolpidem CR (Ambien CR) 12.5 MG ER tablet TAKE 1 TABLET BY MOUTH EVERY DAILY AT BEDTIME NEEDED for sleep REVIEW OF SYSTEMS: Review of Systems General: Denies appetite or significant weight change. Denies fever, chills or night sweats. Denies lightheadedness. ENT: Denies dry mouth, sore throat or swollen glands. Denies difficulty swallowing. Denies ear pain. Respiratory: Denies chest pain, SOB, cough or wheezing. Denies asthma or pneumonia symptoms. Cardiovascular: Denies CP or palpitations. No syncope or dyspnea on exertion. Gastrointestinal: Denies nausea or vomiting. Denies heartburn or abdominal pain. Denies diarrhea. Genitourinary: Denies frequent or painful urination. Musculoskeletal: See HPI for comments. Integumentary: Denies rash, lesion or skin infection. Neurologic: Denies dizziness, headache or seizure history. Vitals: Body mass index is 27.26 kg/m . PHYSICAL EXAM: Physical Exam Left lower leg demonstrates healing skin tears with no active infection he does have some erythema surrounding the tissue which he was concerned about this did not appear to be cellulitic. We will place him on antibiotic for about 7 days as prophylaxis he will continue covering the wound when wearing pants or at nighttime otherwise leave it open to the air. No orders of the defined types were placed in this encounter. XR shoulder 2+ views right AP and scapular Y-view of the right shoulder taken in the office today demonstrating significant AC joint arthropathy as well as inferior spurring causing impingement to the rotator cuff. Glenohumeral joint is fairly well preserved. No evidence of fracture bony tumor. ASSESSMENT: Skin tear of left lower leg without complication, initial encounter PLAN: Continue the Xeroform dressings daily may also leave open to the air when able. Start taking clindamycin 3 times a day for the next 7 days we will plan on following up on an as-needed basis as I expect this to continue to improve. Call for any concerns. Yoko Ellis submitted by the patient for this visit: Lower Extremity Injury Questionnaire (Submitted on 11/10/2023) Chief Complaint: Lower extremity pain Incident occurred: 3 to 5 days ago Incident location: at home Injury mechanism: other Pain location: left leg Pain - numeric: 2/10 Pain course: improving Aggravated by: palpation documented in this encounterCass Medical [id number] Instructions* Patient Instructions* FAUZIA Ellis - 11/10/2023 11:15 AM EST Continue the Xeroform dressings daily may also leave open to the air when able. Start taking clindamycin 3 times a day for the next 7 days we will plan on following up on an as-needed basis as I expect this to continue to improve. Call for any concerns. documented in this encounterCass Medical [id number] Telephone encounter Note* Telephone Encounter - Ton Hankins DO - 11/06/2023 8:00 AM EST Pt called health occupations teacher 11/04/23 at 1405. Concerned regarding what to place on wound. Thought something wasto be called in. Recommended using Neosporin to the wound and to call with any further concerns. Will follow-up as previously scheduled. [facility] Work Phone: [phone] Miscellaneous Notes* Telephone Encounter - Ton Hankins DO - 11/06/2023 8:00 AM EST Pt called health occupations teacher 11/04/23 at 1405. Concerned regarding what to place on wound. Thought something wasto be called in. Recommended using Neosporin to the wound and to call with any further concerns. Will follow-up as previously scheduled. documented in this encounterCass Medical [id number] History of Present illness Narrative* Catie Calixto, LIZZ - 11/02/2023 1:45 PM EST Subjective Patient ID: Jose Rocha is a 82 y.o. male who presents for Toenail Care (Toenail care). Nail care Location nails on bilateral feet Severity of symptoms mild Onset gradual Status no change Context hard to trim, hard to reach Nails thickened, discolored, pain Relieved by debridement, filing down nails, clipping nails History of ulcers/wounds no Aggravated by shoe gear, pressure Last seen date: 09-23 Last seen diagnosing provider: Dr Geoff PERES General: Chillsdenies. Feverdenies. Musculoskeletal: muscle weaknessdenies. Bone/joint symptomsdenies. Peripheral Vascular: Edemadenies. Hx of blood clots in legsdenies. Raynaud'sdenies. Rest pain denies. Ulceration of feetdenies. Varicose veinsdenies. Skin: Hyperpigmentationdenies. Nail changesdenies. Rashdenies. Skin lesion(s)denies. Neurologic: Gait abnormalitydenies. Tingling/Numbnessdenies. Current Medications Current Outpatient Medications: aspirin 81 MG EC tablet, Take 81 mg by mouth in the morning., Disp: , Rfl: Bismuth Tribromoph-Petrolatum (Xeroform Petrolatum Dres 4 x4 ) 3 % pads, Apply 1 Application topically Daily as needed (Apply to skin tear) for up to 10 days, Disp: 10 each, Rfl: 0 cholecalciferol (Vitamin D-3) 50 MCG (1999 UT) capsule, 1 capsule 1 (one) time each day at the sametime., Disp: , Rfl: Eliquis 5 MG tablet, , Disp: , Rfl: flecainide (Tambocor) 50 MG tablet, Take 50 mg by mouth every 12 (twelve) hours., Disp: , Rfl: gabapentin (Neurontin) 300 MG capsule, Take 300 mg by mouth in the morning., Disp: , Rfl: Lipitor 20 MG tablet, 1 (one) time each day at the same time., Disp: , Rfl: losartan (Cozaar) 50 MG tablet, Take 50 mg by mouth in the morning., Disp: , Rfl: Multiple Vitamin (multivitamin) tablet, Take 1 tablet by mouth in the morning., Disp: , Rfl: tamsulosin (Flomax) 0.4 MG 24 hr capsule, Take 0.4 mg by mouth in the morning., Disp: , Rfl: zolpidem CR (Ambien CR) 12.5 MG ER tablet, TAKE 1 TABLET BY MOUTH EVERY DAILY AT BEDTIME NEEDED for sleep, Disp: , Rfl: Allergies Patient has no known allergies. Medical Histories Past Medical History: Diagnosis Date A-fib ([facility]) 2016 Atopic eczema BPH with elevated PSA DDD (degenerative disc disease), cervical Depression ([facility]) Diverticulosis Fractured sternum GERD (gastroesophageal reflux disease) Gouty arthritis Hearing loss Hereditary sensorimotor neuropathy HLD (hyperlipidemia) ([facility]) HTN (hypertension) ([facility]) Hx of scarlet fever IBS (irritable bowel syndrome) Insomnia HAYDER (obstructive sleep apnea) Sternum fx 04/2019 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[facility]) Trigeminal neuralgia ([facility]) Urinary retention Surgical Histories Past Surgical History: Procedure Laterality Date APPENDECTOMY 2001 BLADDER REPAIR 07/2012 CARPAL TUNNEL RELEASE CATARACT EXTRACTION W/ INTRAOCULAR LENS IMPLANT Bilateral CHOLECYSTECTOMY 07/2002 COLONOSCOPY W/ POLYPECTOMY 1999, 2006, 2008 HIATAL HERNIA REPAIR 11/1996 STEPHANY FUNDOPLICATION 1995 OTHER SURGICAL HISTORY 01/31/2008 r/o BCCA AK TOTAL HIP ARTHROPLASTY Left 02/02/2016 AK TOTAL KNEE ARTHROPLASTY Right 07/18/2017 TURP / TRANSURETHRAL INCISION / DRAINAGE PROSTATE 07/2012 Hospitalizations Family History Family History Problem Relation Name Age of Onset Kidney cancer Mother Heart disease Father Alzheimer's disease Sibling Heart disease Sibling Mental illness Sibling Melanoma Neg Hx Objective Foot Exam General Examination: GENERAL EXAMINATIONalert, well hydrated, in no distress , awake, aware of surroundings . Dermatologic: HYPERKERATOSIS:dist right 3-minimal. NAIL PATHOLOGY:digits 1-5 bilateral are intact. atrophic skin with neg digital hair and hyperpigmentation. Nail Pathology: Left Foot: 1 (great toe)Long, Thick, Crumbly, Deformed, Discolored, Brittle, Dystrophic 5mm. 2Long, Thick, Crumbly, Deformed, Discolored, Brittle, Dystrophic 4mm. 3Long, Thick, Crumbly, Deformed, Discolored, Brittle, Dystrophic . 4Long, Thick, . 5Long, Thick, Crumbly, Deformed, Discolored, Brittle, Dystrophic . Nail Pathology: Right Foot: 1 (great toe)Long, Thick, Crumbly, Deformed, Discolored, Brittle, Dystrophic 4 mm. 2Long, Thick, Crumbly, Deformed, Discolored, Brittle, Dystrophic 3mm. 3Long, Thick, . 4Long, Thick, . 5Long, Thick, Crumbly, Deformed, Discolored, Brittle, Dystrophic . Modifier: -Q9, Parastesias. Orthopedic: DEFORMITIES:Hammer toe, 2,3, 4 bilateral , Hallux abductovalgus, left. Good range of motion and no pain on exam other than to the great toe nail margin bilateral. Ankle / Foot: Good strength and ROM bilat, no jose ramon or legs tenderness. neg homans sign. Neurologic: Vibratory sensation, sharp/dull and light touch are absent to the plantar foot bilateral. Loss of SWM 5.07 protective sensation to the plantar foot bilateral, all toes involved bilateral jasper right lesser toes up to midfoot. Vascular: palp pulses bilat and good color and refill digits. minimal edema, minimal varicosities. Assessment/Plan neuropathy,mycotic nails Nails: all thick and dystrophic nails debrided of all affected and loose material All of the nondystrophic nails were debrided documented in this encounterCass Medical [id number] Hospital Discharge instructions Patient Education 10/29/2023 16:48:21 Fall Prevention in the Home, Adult Fall Prevention in the Home, Adult Falls can cause injuries and affect people of all ages. There are many simple things that you can do to make your home safe and to help prevent falls. Ask for help when making these changes, if needed. What actions can I take to prevent falls? General instructions Use good lighting in all rooms. Replace any light bulbs that burn out, turn on lights if it is dark, and use night-lights. Place frequently used items in mqln-gy-ovfxx places. Lower the shelves around your home if necessary. Set up furniture so that there are clear paths around it. Avoid moving your furniture around. Remove throw rugs and other tripping hazards from the floor. Avoid walking on wet floors. Fix any uneven floor surfaces. Add color or contrast paint or tape to grab bars and handrails in your home. Place contrasting color strips on the first and last steps of staircases. When you use a stepladder, make sure that it is completely opened and that the sides and supports are firmly locked. Have someone hold the ladder while you are using it. Do not climb a closed stepladder. Know where your pets are when moving through your home. What can I do in the bathroom? Keep the floor dry. Immediately clean up any water that is on the floor. Remove soap buildup in the tub or shower regularly. Use nonskid mats or decals on the floor of the tub or shower. Attach bath mats securely with double-sided, nonslip rug tape. If you need to sit down while you are in the shower, use a plastic, nonslip stool. Install grab bars by the toilet and in the tub and shower. Do not use towel bars as grab bars. What can I do in the bedroom? Make sure that a bedside light is easy to reach. Do not use oversized bedding that reaches the floor. Have a firm chair that has side arms to use for getting dressed. What can I do in the kitchen? Clean up any spills right away. If you need to reach for something above you, use a sturdy step stool that has a grab bar. Keep electrical cables out of the way. Do not use floor irish or wax that makes floors slippery. If you must use wax, make sure that it is non-skid floor wax. What can I do with my stairs? Do not leave any items on the stairs. Make sure that you have a light switch at the top and the bottom of the stairs. Have them installedif you do not have them. Make sure that there are handrails on both sides of the stairs. Fix handrails that are broken or loose. Make sure that handrails are as long as the staircases. Install non-slip stair treads on all stairs in your home. Avoid having throw rugs at the top or bottom of stairs, or secure the rugs with carpet tape to prevent them from moving. Choose a carpet design that does not hide the edge of steps on the stairs. Check any carpeting to make sure that it is firmly attached to the stairs. Fix any carpet that is loose or worn. What can I do on the outside of my home? Use bright outdoor lighting. Regularly repair the edges of walkways and driveways and fix any cracks. Remove high doorway thresholds. Trim any shrubbery on the main path into your home. Regularly check that handrails are securely fastened and in good repair. Both sides of all steps should have handrails. Install guardrails along the edges of any raised decks or porches. Clear walkways of debris and clutter, including tools and rocks. Have leaves, snow, and ice cleared regularly. Use sand or salt on walkways during winter months. In the garage, clean up any spills right away, including grease or oil spills. What other actions can I take? Wear closed-toe shoes that fit well and support your feet. Wear shoes that have rubber soles or lowheels. Use mobility aids as needed, such as canes, walkers, scooters, and crutches. Review your medicines with your health care provider. Some medicines can cause dizziness or changesin blood pressure, which increase your risk of falling. Talk with your health care provider about other ways that you can decrease your risk of falls. Thismay include working with a physical therapist or boxing trainer to improve your strength, balance, and endurance. Where to find more information Centers for Disease Control and Prevention, [employer]: www.cdc.gov [employer] [place] [employer] Aging: www.kourtney.nih.gov Contact a health care provider if: You are afraid of falling at home. You feel weak, drowsy, or dizzy at home. You fall at home. Summary There are many simple things that you can do to make your home safe and to help prevent falls. Ways to make your home safe include removing tripping hazards and installing grab bars in the bathroom. Ask for help when making these changes in your home. This information is not intended to replace advice given to you by your health care provider. Make sure you discuss any questions you have with your health care provider. Document Revised: 06/20/2022 Document Reviewed: 04/21/2021 [employer] Patient Education 2022 [employer]. 10/29/2023 16:48:21 How to Use a Sling How to Use a Sling A sling is a type of hanging bandage that is worn around the neck to protect an injured arm, shoulder, or other body part. A sling may be needed to prevent movement of (to immobilize) the injured body part while it heals. Keeping the injured body part still can lessen pain and speed up healing. A health care provider may recommend using a sling: To treat a broken arm or collarbone. To treat a shoulder or elbow injury. After upper extremity surgery. What are the risks? In general, wearing a sling helps with safe healing. However, in some cases, wearing a sling the wrong way can: Make the injury worse. Cause soreness, stiffness, or numbness. Affect blood flow (circulation) in the arm and hand. This can cause tingling or numbness in the fingers or hands. How to use a sling Follow instructions from your health care provider about how and when to wear your sling. Your health care provider will show you or tell you: How to put on the sling. How to adjust the sling. When and how often to wear the sling. How to remove the sling. The way that you need to use a sling depends on your injury. Unless your health care provider givesyou different instructions, you should: Wear the sling so that your elbow bends to the shape of a capital letter L (90 degrees, or a right angle). Make sure the sling supports your elbow, wrist, and hand. Adjust the sling if your fingers or hand start to tingle or feel numb. Follow these instructions at home: Try to avoid moving your arm. Do not twist, lift, or move your arm in a way that could make your injury worse. Do not lean on your arm while wearing a sling. Do not lift anything with the hand or arm that is in the sling. Contact a health care provider if: You have bruising, swelling, or pain that gets worse. You have pain that does not get better with medicine. You have a fever. Your sling is not supporting your arm properly. Your sling gets damaged. Get help right away if: You have numbness or tingling in your fingers. You notice that your fingers turn blue or feel cold to the touch. You cannot control bleeding from your injury. You have shortness of breath. These symptoms may represent a serious problem that is an emergency. Do not wait to see if the symptoms will go away. Get medical help right away. Call your local emergency services (911 in the [place] Do not drive yourself to the hospital. Summary A sling is a type of hanging bandage that is worn around the neck to protect an injured arm, shoulder, or other body part. A sling may be needed to prevent movement of (to immobilize) the injured body part while it heals. The way that you use a sling depends on your injury. Carefully follow instructions from your healthcare provider. Wear the sling so that your arm bends 90 degrees (at a right angle) at the elbow. That is like the shape of a capital letter L. Make sure you know which problems should cause you to contact your health care provider or get helpright away. This information is not intended to replace advice given to you by your health care provider. Make sure you discuss any questions you have with your health care provider. Document Revised: 11/03/2021 Document Reviewed: 11/03/2021 [employer] Patient Education 2022 [employer]. 10/29/2023 16:48:21 Shoulder Sprain Shoulder Sprain A shoulder sprain is a partial or complete tear in one of the tough, fiber-like tissues (ligaments)in the shoulder. The ligaments in the shoulder help to hold the shoulder in place. What are the causes? This condition may be caused by: A fall. A hit to the shoulder. A twist of the arm. What increases the risk? You are more likely to develop this condition if you: Play sports. Have problems with balance or coordination. What are the signs or symptoms? Symptoms of this condition include: Pain when moving the shoulder. Limited ability to move the shoulder. Swelling and tenderness on top of the shoulder. Warmth in the shoulder. A change in the shape of the shoulder. Redness or bruising on the shoulder. How is this diagnosed? This condition is diagnosed with: A physical exam. During the exam, you may be asked to do simple exercises with your shoulder. Imaging tests such as X-rays, MRI, or a CT scan. These tests can show how severe the sprain is. How is this treated? This condition may be treated with: Rest. Pain medicine. Ice. A sling or brace. This is used to keep the arm still while the shoulder is healing. Physical therapy or rehabilitation exercises. These help to improve the range of motion and strength of the shoulder. Surgery (rare). Surgery may be needed if the sprain caused a joint to become unstable. Surgery may also be needed to reduce pain. Some people may develop ongoing shoulder pain or lose some range of motion in the shoulder. However, most people do not develop long-term problems. Follow these instructions at home: If you have a sling or brace: Wear the sling or brace as told by your health care provider. Remove it only as told by your healthcare provider. Loosen the sling or brace if your fingers tingle, become numb, or turn cold and blue. Keep the sling or brace clean. If the sling or brace is not waterproof: ?Do not let it get wet. ?Cover it with a watertight covering when you take a bath or shower. Activity Rest your shoulder. Move your arm only as much as told by your health care provider, but move your hand and fingers often to prevent stiffness and swelling. Return to your normal activities as told by your health care provider. Ask your health care provider what activities are safe for you. Ask your health care provider when it is safe for you to drive if you have a sling or brace on yourshoulder. If you were shown how to do any exercises, do them as told by your health care provider. General instructions If directed, put ice on the affected area. ?Put ice in a plastic bag. ?Place a towel between your skin and the bag. ?Leave the ice on for 20 minutes, 2 3 times a day. Take fzjr-afi-zknznoh and prescription medicines only as told by your health care provider. Do not use any products that contain nicotine or tobacco, such as cigarettes, e- cigarettes, and chewing tobacco. These can delay healing. If you need help quitting, ask your health care provider. Keep all follow-up visits as told by your health care provider. This is important. Contact a health care provider if: Your pain gets worse. Your pain is not relieved with medicines. You have increased redness or swelling. Get help right away if: You have a fever. You cannot move your arm or shoulder. You develop severe numbness or tingling in your arm, hand, or fingers. Your arm, hand, or fingers feel cold and turn blue, white, or larkin. Summary A shoulder sprain is a partial or complete tear in one of the tough, fiber-like tissues (ligaments)in the shoulder. This condition may be caused by a fall, a hit to the shoulder, or a twist of the arm. Treatment usually includes rest, ice, and pain medicine as needed. If you have a sling or brace, wear it as told by your health care provider. Remove it only as told by your health care provider. This information is not intended to replace advice given to you by your health care provider. Make sure you discuss any questions you have with your health care provider. Document Revised: 06/06/2022 Document Reviewed: 06/08/2022 [employer] Patient Education 2022 [employer]. 10/29/2023 16:48:21 Skin Tear Skin Tear A skin tear is a wound in which the top layers of skin have peeled off from the deeper skin or tissues underneath. This is a common problem as people get older because the skin becomes thinner and more fragile. In addition, some medicines, such as oral corticosteroids, can lead to thinning skin if they are taken for long periods of time. A skin tear is often repaired with tape or skin adhesive strips. Depending on the location of the wound, a bandage (dressing) may be applied over the tape or adhesive strips. Follow these instructions at home: Wound care Clean the wound as told by your health care provider. You may be instructed to keep the wound dry for the first few days. If you are told to clean the wound: ?Wash the wound as told by your health care provider. This may include using mild soap and water, awound cleanser, or a salt water (saline) solution. ?If using soap, rinse the wound with water to remove all soap. ?Do not rub the wound dry. Pat it gently with a clean towel or let it air-dry. Change any dressings as told by your health care provider. This may include changing the dressing if it gets wet, gets dirty, or starts to smell bad. ?Wash your hands with soap and water for at least 20 seconds before and after you change your bandage (dressing). If soap and water are not available, use hand electrical equipment assembler. ?Leave tape or skin adhesive strips in place. These skin closures may need to stay in place for 2 weeks or longer. If adhesive strip edges start to loosen and curl up, you may trim the loose edges. Do not remove adhesive strips completely unless your health care provider tells you to do that. Check your wound every day for signs of infection. Check for: ?Redness, swelling, or pain. ?More fluid or blood. ?Warmth. ?Pus or a bad smell. Do not scratch or pick at the wound. Protect the injured area until it has healed. Medicines Take or apply tztz-pgs-wqzmbqk and prescription medicines only as told by your health care provider. If you were prescribed an antibiotic medicine, take or apply it as told by your health care provider. Do not stop using the antibiotic even if your condition improves. General instructions Keep the dressing dry as told by your health care provider. Do not take baths, swim, use a hot tub, or do anything that puts your wound underwater until your health care provider approves. Ask your health care provider if you may take showers. You may only beallowed to take sponge baths. Keep all follow-up visits. This is important. Contact a health care provider if: You have redness, swelling, or pain around your wound. You have more fluid or blood coming from your wound. Your wound, or the area around your wound, feels warm to the touch. You have pus or a bad smell coming from your wound. Get help right away if: You have a red streak that goes away from the skin tear. You have a fever and chills, and your symptoms suddenly get worse. Summary A skin tear is a wound in which the top layers of skin have peeled off from the deeper skin or tissues underneath. A skin tear is often repaired with tape or skin adhesive strips, and a bandage (dressing) may be applied over the tape or the adhesive strips. Change any dressings as told by your health care provider. Take or apply mvgx-yyk-irolsie and prescription medicines only as told by your health care provider. Contact a health care provider if you have signs of infection. This information is not intended to replace advice given to you by your health care provider. Make sure you discuss any questions you have with your health care provider. Document Revised: 12/23/2020 Document Reviewed: 12/23/2020 [employer] Patient Education 2022 [employer]. Follow Up Care 10/29/2023 13:36:06 With:Mj Sevilla Address: [address] [place] [id number] Business (1) When:11/01/2023 16:32:35 Comments:Follow-up with Dr. Sevilla for the shoulder sprain. Return to the emergency room if your pain gets worse or any new symptoms With:Jaimson TELLEZ Address: [address] [place] [address], [place] [address] Business (1) When:Within 3 Day(s) [facility]01-28-2024 Evaluation + Plan noteExtracted from: Title:ED Note Author:Con Shields, Shantell Dunlap te:10/29/23 1. Sprain of left shoulder ( S43.402A: Unspecified sprain of left shoulder joint, initial encounter) 2. Fall (W19.XXXA: Unspecified fall, initial encounter) 3. Skin tear of upper extremity (S41.119A: Laceration without foreign body of unspecified upper arm, initial encounter) 4. Noninfected skin tear of lower extremity (S81.819A: Laceration without foreign body, unspecified lower leg, initial encounter) Orders: CT Head or Brain w/o Contrast Sling Apply XR Shoulder Complete Left Future Appointments Appointment Date:10/31/2023 01:00:00 PM Scheduled Provider: Location:.[facility]ICAL [place] Appointment Type:PT Re-Eval 45 (FT) Appointment Date:12/19/2023 01:20:00 PM Scheduled Provider:Jamison TELLEZ DO, FAAFP Location:[facility] Appointment Type:FM Open Appointment Date:07/15/2024 02:30:00 PM Scheduled Provider: Location:[facility] Appointment Type: Medicare Wellness Subsequent Future Scheduled Tests Laboratory* Thyroid Stimulating Hormone 03/07/23 * Free T4 03/07/[address] [facility]12-18-2023 Hospital Discharge instructions Patient Education 09/18/2023 13:55:56 Lumbosacral Radiculopathy Lumbosacral Radiculopathy Lumbosacral radiculopathy is a condition that involves the spinal nerves and nerve roots in the lowback and bottom of the spine. The condition develops when these nerves and nerve roots move out of place or become inflamed and cause symptoms. What are the causes? This condition may be caused by: Pressure from a disk that bulges out of place (herniated disk). A disk is a plate of soft cartilagethat separates bones in the spine. Disk changes that occur with age (disk degeneration). A narrowing of the bones of the lower back (spinal stenosis). A tumor. An infection. An injury that places sudden pressure on the disks that cushion the bones of your lower spine. What increases the risk? You are more likely to develop this condition if: You are a male who is 30 50 years old. You are a female who is 50 60 years old. You use improper technique when lifting things. You are overweight or live a sedentary lifestyle. You smoke. Your work requires frequent lifting. You do repetitive activities that strain the spine. What are the signs or symptoms? Symptoms of this condition include: Pain that goes down from your back into your legs (sciatica), usually on one side of the body. Thisis the most common symptom. The pain may be worse when you sit, cough, or sneeze. Tingling and numbness in your legs. Muscle weakness in your legs. Loss of bladder control or bowel control. How is this diagnosed? This condition may be diagnosed based on: Your symptoms and medical history. A physical exam. If the pain lasts, you may have tests, such as: MRI. X-ray. CT scan. A type of CT scan used to examine the spinal canal after injecting a dye into your spine (myelogram). A test to measure how electrical impulses move through a nerve (nerve conduction study). A test to measure the electrical activity in muscles (electromyogram). How is this treated? In many cases, treatment is not needed for this condition. With rest, the condition usually gets better over time. If treatment is needed, it may include: Working with a physical therapist to improve strength and flexibility. Taking pain medicine. Applying heat or ice or both to the affected areas. Having chiropractic spinal manipulation. Using transcutaneous electrical nerve stimulation (TENS) therapy. Getting a steroid injection in the spine. Having surgery. This may be needed if other treatments do not help. Different types of surgery may be done depending on the cause of this condition. Follow these instructions at home: Activity Avoid bending and any other activities that make the problem worse. Maintain a proper position when standing or sitting. ?When standing, keep your upper back and neck straight with your shoulders pulled back. Avoid slouching. ?When sitting, keep your back straight and relax your shoulders. Do not round your shoulders or pull them backward. Do not sit or machine compositor one place for long periods of time. Take brief periods of rest throughout the day. This will reduce your pain. It is usually better to rest by lying down or standing, not sitting. Mix in mild activity or stretching between long periods of rest. This will help to prevent stiffness and pain. Get regular exercise. Ask your health care provider what activities are safe for you. If you were shown how to do any exercises or stretches, do them as told by your health care provider. You may have to avoid lifting. Ask your health care provider how much you can safely lift. Always use proper lifting technique, which includes: ?Bending your knees. ?Keeping the load close to your body. ?Avoiding twisting. Managing pain If directed, put ice on the affected area. To do this: ?Put ice in a plastic bag. ?Place a towel between your skin and the bag. ?Leave the ice on for 20 minutes, 2 3 times a day. ?Remove the ice if your skin turns bright red. This is very important. If you cannot feel pain, heat, or cold, you have a greater risk of damage to the area. If directed, apply heat to the affected area as often as told by your health care provider. Use theheat source that your health care provider recommends, such as a moist heat pack or a heating pad. ?Place a towel between your skin and the heat source. ?Leave the heat on for 20 30 minutes. ?Remove the heat if your skin turns bright red. This is especially important if you are unable to feel pain, heat, or cold. You have a greater risk of getting burned. Take xgvo-crp-sbnhqnk and prescription medicines only as told by your health care provider. General instructions Sleep on a firm mattress in a comfortable position. Try lying on your side with your knees slightlybent. If you lie on your back, put a pillow under your knees. Ask your health care provider if the medicine prescribed to you requires you to avoid driving or using machinery. If your health care provider prescribed a diet or exercise program, follow it as told. Keep all follow-up visits. This is important. Contact a health care provider if: Your pain does not get better over time, even when taking pain medicines. Get help right away if: You develop severe pain. Your pain suddenly gets worse. You develop increasing weakness in your legs. You lose the ability to control your bladder or bowel. You have difficulty walking or balancing. You have a fever. Summary Lumbosacral radiculopathy is a condition that occurs when the spinal nerves and nerve roots in the lower part of the spine move out of place or become inflamed and cause symptoms. Symptoms include pain, numbness, and tingling that go down from your back into your legs (sciatica), muscle weakness, and loss of bladder control or bowel control. If directed, apply ice or heat or both to the affected area as told by your health care provider. Follow instructions about activity, rest, and proper lifting technique. This information is not intended to replace advice given to you by your health care provider. Make sure you discuss any questions you have with your health care provider. Document Revised: 03/24/2022 Document Reviewed: 03/24/2022 [employer] Patient Education 2022 [employer]. 09/18/2023 13:55:52 Back Exercises, Mlvx-wc-Iarm Back Exercises These exercises help to make your trunk and back strong. They also help to keep the lower back flexible. Doing these exercises can help to prevent or lessen pain in your lower back. If you have back pain, try to do these exercises 2 3 times each day or as told by your doctor. As you get better, do the exercises once each day. Repeat the exercises more often as told by your doctor. To stop back pain from coming back, do the exercises once each day, or as told by your doctor. Do exercises exactly as told by your doctor. Stop right away if you feel sudden pain or your pain gets worse. Exercises Single knee to chest Do these steps 3 5 times in a row for each le.Lie on your back on a firm bed or the floor with your legs stretched out. 2.Bring one knee to your chest. 3.Grab your knee or thigh with both hands and hold it in place. 4.Pull on your knee until you feel a gentle stretch in your lower back or butt. 5.Keep doing the stretch for 10 30 seconds. 6.Slowly let go of your leg and straighten it. Pelvic tilt Do these steps 5 10 times in a row: 1.Lie on your back on a firm bed or the floor with your legs stretched out. 2.Bend your knees so they point up to the ceiling. Your feet should be flat on the floor. 3.Tighten your lower belly (abdomen) muscles to press your lower back against the floor. This will make your tailbone point up to the ceiling instead of pointing down to your feet or the floor. 4.Stay in this position for 5 10 seconds while you gently tighten your muscles and breathe evenly. Cat cow Do these steps until your lower back bends more easily: 1.Get on your hands and knees on a firm bed or the floor. Keep your hands under your shoulders, andkeep your knees under your hips. You may put padding under your knees. 2.Let your head hang down toward your chest. Tighten (contract) the muscles in your belly. Point your tailbone toward the floor so your lower back becomes rounded like the back of a cat. 3.Stay in this position for 5 seconds. 4.Slowly lift your head. Let the muscles of your belly relax. Point your tailbone up toward the ceiling so your back forms a sagging arch like the back of a cow. 5.Stay in this position for 5 seconds. Press-ups Do these steps 5 10 times in a row: 1.Lie on your belly (face-down) on a firm bed or the floor. 2.Place your hands near your head, about shoulder-width apart. 3.While you keep your back relaxed and keep your hips on the floor, slowly straighten your arms to raise the top half of your body and lift your shoulders. Do not use your back muscles. You may change where you place your hands to make yourself more comfortable. 4.Stay in this position for 5 seconds. Keep your back relaxed. 5.Slowly return to lying flat on the floor. Bridges Do these steps 10 times in a row: 1.Lie on your back on a firm bed or the floor. 2.Bend your knees so they point up to the ceiling. Your feet should be flat on the floor. Your armsshould be flat at your sides, next to your body. 3.Tighten your butt muscles and lift your butt off the floor until your waist is almost as high as your knees. If you do not feel the muscles working in your butt and the back of your thighs, slide your feet 1 2 inches (2.5 5 cm) farther away from your butt. 4.Stay in this position for 3 5 seconds. 5.Slowly lower your butt to the floor, and let your butt muscles relax. If this exercise is too easy, try doing it with your arms crossed over your chest. Belly crunches Do these steps 5 10 times in a row: 1.Lie on your back on a firm bed or the floor with your legs stretched out. 2.Bend your knees so they point up to the ceiling. Your feet should be flat on the floor. 3.Cross your arms over your chest. 4.Tip your chin a little bit toward your chest, but do not bend your neck. 5.Tighten your belly muscles and slowly raise your chest just enough to lift your shoulder blades atiny bit off the floor. Avoid raising your body higher than that because it can put too much stresson your lower back. 6.Slowly lower your chest and your head to the floor. Back lifts Do these steps 5 10 times in a row: 1.Lie on your belly (face-down) with your arms at your sides, and rest your forehead on the floor. 2.Tighten the muscles in your legs and your butt. 3.Slowly lift your chest off the floor while you keep your hips on the floor. Keep the back of yourhead in line with the curve in your back. Look at the floor while you do this. 4.Stay in this position for 3 5 seconds. 5.Slowly lower your chest and your face to the floor. Contact a doctor if: Your back pain gets a lot worse when you do an exercise. Your back pain does not get better within 2 hours after you exercise. If you have any of these problems, stop doing the exercises. Do not do them again unless your doctor says it is okay. Get help right away if: You have sudden, very bad back pain. If this happens, stop doing the exercises. Do not do them again unless your doctor says it is okay. This information is not intended to replace advice given to you by your health care provider. Make sure you discuss any questions you have with your health care provider. Document Revised: 12/01/2021 Document Reviewed: 12/01/2021 [employer] Patient Education 2022 [employer]. 09/18/2023 13:45:14 Transurethral Resection of the Prostate Transurethral Resection of the Prostate Transurethral resection of the prostate (TURP) is the removal, or resection, of part of the prostate tissue. This procedure is done to treat an enlarged prostate gland (benign prostatic hyperplasia). The goal of TURP is to remove enough prostate tissue to allow for a normal flow of urine. The procedure will allow you to empty your bladder more completely when you urinate so that you can urinate less often. In a transurethral resection, a thin telescope with a light, a camera, and an electric cutting edge(resectoscope) is passed through the urethra and into the prostate. The opening of the urethra is at the end of the penis. Tell a health care provider about: Any allergies you have. All medicines you are taking, including vitamins, herbs, eye drops, creams, and cqqp-miw-pvquafk medicines. Any problems you or family members have had with anesthetic medicines. Any bleeding problems you have. Any surgeries you have had. Any medical conditions you have. Any prostate infections you have had. What are the risks? Generally, this is a safe procedure. However, problems may occur, including: Infection. Bleeding. Allergic reactions to medicines. Blood in the urine (hematuria). Damage to nearby structures or organs. Other problems may occur, but they are rare. They include: Dry ejaculation, or having no semen come out during orgasm. Erectile dysfunction, or being unable to have or keep an erection. Scarring that leads to narrowing of the urethra. This narrowing may block the flow of urine. Inability to control when you urinate (incontinence). Deep vein thrombosis. This is a blood clot that can develop in your leg. TURP syndrome. This can happen when you lose too much sodium during or after the procedure. Some signs and symptoms of this condition include: ?Weakness. ?Headaches. ?Nausea or vomiting. ?Muscle cramping. What happens before the procedure? When to stop eating and drinking Follow instructions from your health care provider about what you may eat and drink before your procedure. These may include: 8 hours before your procedure ?Stop eating most foods. Do not eat meat, fried foods, or fatty foods. ?Eat only light foods, such as toast or crackers. ?All liquids are okay except energy drinks and alcohol. 6 hours before your procedure ?Stop eating. ?Drink only clear liquids, such as water, clear fruit juice, black coffee, plain tea, and sports drinks. ?Do not drink energy drinks or alcohol. 2 hours before your procedure ?Stop drinking all liquids. ?You may be allowed to take medicines with small sips of water. If you do not follow your health care provider's instructions, your procedure may be delayed or canceled. Medicines Ask your health care provider about: Changing or stopping your regular medicines. This is especially important if you are taking diabetes medicines or blood thinners. Taking medicines such as aspirin and ibuprofen. These medicines can thin your blood. Do not take these medicines unless your health care provider tells you to take them. Taking enkl-gsk-mdlpcnl medicines, vitamins, herbs, and supplements. Surgery safety Ask your health care provider what steps will be taken to help prevent infection. These steps may include: Removing hair at the surgery site. Washing skin with a germ-killing soap. Taking antibiotic medicine. General instructions Do not use any products that contain nicotine or tobacco for at least 4 weeks before the procedure.These products include cigarettes, chewing tobacco, and vaping devices, such as e-cigarettes. If you need help quitting, ask your health care provider. If you will be going home right after the procedure, plan to have a responsible adult: ?Take you home from the hospital or clinic. You will not be allowed to drive. ?Care for you for the time you are told. What happens during the procedure? An IV will be inserted into one of your veins. You will be given one or more of the following: ?A medicine to help you relax (sedative). ?A medicine to make you fall asleep (general anesthetic). ?A medicine that is injected into your spine to numb the area below and slightly above the injection site (spinal anesthetic). Your legs will be placed in foot rests (stirrups) so that your legs are apart and your knees are bent. The resectoscope will be passed through your urethra to your prostate. Parts of your prostate will be resected using the cutting edge of the resectoscope. Fluid will be passed to rinse out the cut tissues (irrigation). The resectoscope will be removed. A small, thin tube (catheter) will be passed through your urethra and into your bladder. The catheter will drain urine into a bag outside of your body. The procedure may vary among health care providers and hospitals. What happens after the procedure? Your blood pressure, heart rate, breathing rate, and blood oxygen level will be monitored until youleave the hospital or clinic. You will be given fluids through the IV. The IV will be removed when you start eating and drinking normally. You may have some pain. Pain medicine will be available to help you. You will have a catheter draining your urine. ?You may have blood in your urine. Your catheter may be kept in until your urine is clear. ?Your urinary drainage will be monitored. If necessary, your bladder may be rinsed out (irrigated) through your catheter. You will be encouraged to walk around as soon as possible. You may have to wear compression stockings. These stockings help to prevent blood clots and reduce swelling in your legs. If you were given a sedative during the procedure, it can affect you for several hours. Do not drive or operate machinery until your health care provider says that it is safe. Summary Transurethral resection of the prostate (TURP) is the removal (resection) of part of the prostate tissue. The goal of this procedure is to remove enough prostate tissue to allow for a normal flow of urine. Follow instructions from your health care provider about taking medicines and about eating and drinking before the procedure. This information is not intended to replace advice given to you by your health care provider. Make sure you discuss any questions you have with your health care provider. Document Revised: 06/14/2022 Document Reviewed: 06/14/2022 [employer] Patient Education 2022 [employer]. Follow Up Care 06/19/2023 14:14:08 With:GEOFF PINTO FAAFP, VARINDER Alanis, PED Address: [address] [place] [address]- When:Within 3 Month(s) [facility] 12-06-2023 Hospital Discharge instructions Patient Education 09/06/2023 15:17:56 BMI for Adults BMI for Adults What is BMI? Body mass index (BMI) is a number that is calculated from a person's weight and height. BMI can help estimate how much of a person's weight is composed of fat. BMI does not measure body fat directly.Rather, it is an alternative to procedures that directly measure body fat, which can be difficult and expensive. BMI can help identify people who may be at higher risk for certain medical problems. What are BMI measurements used for? BMI is used as a screening tool to identify possible weight problems. It helps determine whether a person is obese, overweight, a healthy weight, or underweight. BMI is useful for: Identifying a weight problem that may be related to a medical condition or may increase the risk for medical problems. Promoting changes, such as changes in diet and exercise, to help reach a healthy weight. BMI screening can be repeated to see if these changes are working. How is BMI calculated? BMI involves measuring your weight in relation to your height. Both height and weight are measured,and the BMI is calculated from those numbers. This can be done either in [place] ([place] or metric measurements. Note that charts and online BMI calculators are available to help you find your BMI quickly and easily without having to do these calculations yourself. To calculate your BMI in [place]ian ([place] measurements: 1.Measure your weight in pounds (lb). 2.Multiply the number of pounds by 703. For example, for a person who weighs 180 lb, multiply that number by 703, which equals 126,540. 3.Measure your height in inches. Then multiply that number by itself to get a measurement called inches squared. For example, for a person who is 70 inches tall, the inches squared measurement is 70 inches x 70inches, which equals 4,900 inches squared. 4.Divide the total from step 2 (number of lb x 703) by the total from step 3 (inches squared): 126,540 4,900 = 25.8. This is your BMI. To calculate your BMI in metric measurements: 1.Measure your weight in kilograms (kg). 2.Measure your height in meters (m). Then multiply that number by itself to get a measurement called meters squared. For example, for a person who is 1.75 m tall, the meters squared measurement is 1.75 m x 1.75 m, which is equal to 3.1 meters squared. 3.Divide the number of kilograms (your weight) by the meters squared number. In this example: 70 3.1 = 22.6. This is your BMI. What do the results mean? BMI charts are used to identify whether you are underweight, normal weight, overweight, or obese. The following guidelines will be used: Underweight: BMI less than 18.5. Normal weight: BMI between 18.5 and 24.9. Overweight: BMI between 25 and 29.9. Obese: BMI of 30 or above. Keep these notes in mind: Weight includes both fat and muscle, so someone with a muscular build, such as an athlete, may havea BMI that is higher than 24.9. In cases like these, BMI is not an accurate measure of body fat. To determine if excess body fat is the cause of a BMI of 25 or higher, further assessments may needto be done by a health care provider. BMI is usually interpreted in the same way for men and women. Where to find more information For more information about BMI, including tools to quickly calculate your BMI, go to these websites: Centers for Disease Control and Prevention: www.cdc.gov [employer] [employer]: www.heart.org National Heart, Lung, and Blood [employer]: www.nhlbi.nih.gov Summary Body mass index (BMI) is a number that is calculated from a person's weight and height. BMI may help estimate how much of a person's weight is composed of fat. BMI can help identify thosewho may be at higher risk for certain medical problems. BMI can be measured using Georgian measurements or metric measurements. BMI charts are used to identify whether you are underweight, normal weight, overweight, or obese. This information is not intended to replace advice given to you by your health care provider. Make sure you discuss any questions you have with your health care provider. Document Revised: 06/10/2020 Document Reviewed: 04/17/2020 [employer] Patient Education 2022 [employer]. 09/06/2023 15:17:54 Cellulitis, Adult, Wyie-bq-Leia Cellulitis, Adult Cellulitis is a skin infection. The infected area is often warm, red, swollen, and sore. It occurs most often in the arms and lower legs. It is very important to get treated for this condition. What are the causes? This condition is caused by bacteria. The bacteria enter through a break in the skin, such as a cut, burn, insect bite, open sore, or crack. What increases the risk? This condition is more likely to occur in people who: Have a weak body defense system (immune system). Have open cuts, garcia, bites, or scrapes on the skin. Are older than 60 years of age. Have a blood sugar problem (diabetes). Have a long-lasting (chronic) liver disease (cirrhosis) or kidney disease. Are very overweight (obese). Have a skin problem, such as: ?Itchy rash (eczema). ?Slow movement of blood in the veins (venous stasis). ?Fluid buildup below the skin (edema). Have been treated with high-energy rays (radiation). Use IV drugs. What are the signs or symptoms? Symptoms of this condition include: Skin that is: ?Red. ?Streaking. ?Spotting. ?Swollen. ?Sore or painful when you touch it. ?Warm. A fever. Chills. Blisters. How is this diagnosed? This condition is diagnosed based on: Medical history. Physical exam. Blood tests. Imaging tests. How is this treated? Treatment for this condition may include: Medicines to treat infections or allergies. Home care, such as: ?Rest. ?Placing cold or warm cloths (compresses) on the skin. Hospital care, if the condition is very bad. Follow these instructions at home: Medicines Take ndgr-akg-mqrxfdf and prescription medicines only as told by your doctor. If you were prescribed an antibiotic medicine, take it as told by your doctor. Do not stop taking it even if you start to feel better. General instructions Drink enough fluid to keep your pee (urine) pale yellow. Do not touch or rub the infected area. Raise (elevate) the infected area above the level of your heart while you are sitting or lying down. Place cold or warm cloths on the area as told by your doctor. Keep all follow-up visits as told by your doctor. This is important. Contact a doctor if: You have a fever. You do not start to get better after 1 2 days of treatment. Your bone or joint under the infected area starts to hurt after the skin has healed. Your infection comes back. This can happen in the same area or another area. You have a swollen bump in the area. You have new symptoms. You feel ill and have muscle aches and pains. Get help right away if: Your symptoms get worse. You feel very sleepy. You throw up (vomit) or have watery poop (diarrhea) for a long time. You see red streaks coming from the area. Your red area gets larger. Your red area turns dark in color. These symptoms may represent a serious problem that is an emergency. Do not wait to see if the symptoms will go away. Get medical help right away. Call your local emergency services (911 in the [place] Do not drive yourself to the hospital. Summary Cellulitis is a skin infection. The area is often warm, red, swollen, and sore. This condition is treated with medicines, rest, and cold and warm cloths. Take all medicines only as told by your doctor. Tell your doctor if symptoms do not start to get better after 1 2 days of treatment. This information is not intended to replace advice given to you by your health care provider. Make sure you discuss any questions you have with your health care provider. Document Revised: 06/30/2022 Document Reviewed: 06/30/2022 [employer] Patient Education 2022 [employer]. Follow Up Care 09/06/2023 11:59:40 With:GEOFF PINTO FAAFP, Jamison Campos, VARINDER, PED Address: [address], [facility] [place] [address]- When: Unknown [facility] 10-11-2023 Hospital Discharge instructions Patient Education 07/12/2023 15:25:47 Understanding Your Risk for Falls Understanding Your Risk for Falls Each year, millions of people have serious injuries from falls. It is important to understand your risk for falling. Talk with your health care provider about your risk and what you can do to lower it. There are actions you can take at home to lower your risk and prevent falls. If you do have a serious fall, make sure to tell your health care provider. Falling once raises your risk of falling again. How can falls affect me? Serious injuries from falls are common. These include: Broken bones, such as hip fractures. Head injuries, such as traumatic brain injuries (TBI) or concussion. A fear of falling can cause you to avoid activities and stay at home. This can make your muscles weaker and actually raise your risk for a fall. What can increase my risk? There are a number of risk factors that increase your risk for falling. The more risk factors you have, the higher your risk of falling. Serious injuries from a fall happen most often to people olderthan age 65. Children and young adults ages 15 29 are also at higher risk. Common risk factors include: Weakness in the lower body. Lack (deficiency) of vitamin D. Being generally weak or confused due to long-term (chronic) illness. Dizziness or balance problems. Poor vision. Medicines that cause dizziness or drowsiness. These can include medicines for your blood pressure, heart, anxiety, insomnia, or edema, as well as pain medicines and muscle relaxants. Other risk factors include: Drinking alcohol. Having had a fall in the past. Having depression. Having foot pain or wearing improper footwear. Working at a dangerous job. Having any of the following in your home: ?Tripping hazards, such as floor clutter or loose rugs. ?Poor lighting. ?Pets. Having dementia or memory loss. What actions can I take to lower my risk of falling? Physical activity Maintain physical fitness. Do strength and balance exercises. Consider taking a regular class to build strength and balance. Yoga and sonja chi are good options. Vision Have your eyes checked every year and your vision prescription updated as needed. Walking aids and footwear Wear nonskid shoes. Do not wear high heels. Do not walk around the house in socks or slippers. Use a cane or walker as told by your health care provider. Home safety Attach secure railings on both sides of your stairs. Install grab bars for your tub, shower, and toilet. Use a bath mat in your tub or shower. Use good lighting in all rooms. Keep a flashlight near your bed. Make sure there is a clear path from your bed to the bathroom. Use night-lights. Do not use throw rugs. Make sure all carpeting is taped or tacked down securely. Remove all clutter from walkways and stairways, including extension cords. Repair uneven or broken steps. Avoid walking on icy or slippery surfaces. Walk on the grass instead of on icy or slick sidewalks. Use ice melt to get rid of ice on walkways. Use a cordless phone. Questions to ask your health care provider Can you help me check my risk for a fall? Do any of my medicines make me more likely to fall? Should I take a vitamin D supplement? What exercises can I do to improve my strength and balance? Should I make an appointment to have my vision checked? Do I need a bone density test to check for weak bones or osteoporosis? Would it help to use a cane or a walker? Where to find more information Centers for Disease Control and PreventionKEYLA: www.cdc.gov Community-Based Fall Prevention Programs: www.cdc.gov National Richardson on Aging: www.kourtney.nih.gov Contact a health care provider if: You fall at home. You are afraid of falling at home. You feel weak, drowsy, or dizzy. Summary Serious injuries from a fall happen most often to people older than age 65. Children and young adults ages 15 29 are also at higher risk. Talk with your health care provider about your risks for falling and how to lower those risks. Taking certain precautions at home can lower your risk for falling. If you fall, always tell your health care provider. This information is not intended to replace advice given to you by your health care provider. Make sure you discuss any questions you have with your health care provider. Document Revised: 04/21/2021 Document Reviewed: 04/21/2021 [employer] Patient Education 2022 [employer]. 07/12/2023 15:25:28 Atrial Fibrillation Atrial Fibrillation Atrial fibrillation is a type of irregular or rapid heartbeat (arrhythmia). In atrial fibrillation,the top part of the heart (atria) beats in an irregular pattern. This makes the heart unable to pump blood normally and effectively. The goal of treatment is to prevent blood clots from forming, control your heart rate, or restore your heartbeat to a normal rhythm. If this condition is not treated, it can cause serious problems, such as a weakened heart muscle (cardiomyopathy) or a stroke. What are the causes? This condition is often caused by medical conditions that damage the heart's electrical system. These include: High blood pressure (hypertension). This is the most common cause. Certain heart problems or conditions, such as heart failure, coronary artery disease, heart valve problems, or heart surgery. Diabetes. Overactive thyroid (hyperthyroidism). Obesity. Chronic kidney disease. In some cases, the cause of this condition is not known. What increases the risk? This condition is more likely to develop in: Older people. People who smoke. Athletes who do endurance exercise. People who have a family history of atrial fibrillation. Men. People who use drugs. People who drink a lot of alcohol. People who have lung conditions, such as emphysema, pneumonia, or COPD. People who have obstructive sleep apnea. What are the signs or symptoms? Symptoms of this condition include: A feeling that your heart is racing or beating irregularly. Discomfort or pain in your chest. Shortness of breath. Sudden light-headedness or weakness. Tiring easily during exercise or activity. Fatigue. Syncope (fainting). Sweating. In some cases, there are no symptoms. How is this diagnosed? Your health care provider may detect atrial fibrillation when taking your pulse. If detected, this condition may be diagnosed with: An electrocardiogram (ECG) to check electrical signals of the heart. An ambulatory groundwater monitoring technician to record your heart's activity for a few days. A transthoracic echocardiogram (TTE) to create pictures of your heart. A transesophageal echocardiogram (ROYA) to create even closer pictures of your heart. A stress test to check your blood supply while you exercise. Imaging tests, such as a CT scan or chest X-ray. Blood tests. How is this treated? Treatment depends on underlying conditions and how you feel when you experience atrial fibrillation. This condition may be treated with: Medicines to prevent blood clots or to treat heart rate or heart rhythm problems. Electrical cardioversion to reset the heart's rhythm. A pacemaker to correct abnormal heart rhythm. Ablation to remove the heart tissue that sends abnormal signals. Left atrial appendage closure to seal the area where blood clots can form. In some cases, underlying conditions will be treated. Follow these instructions at home: Medicines Take over-the counter and prescription medicines only as told by your health care provider. Do not take any new medicines without talking to your health care provider. If you are taking blood thinners: ? Talk with your health care provider before you take any medicines that contain aspirin or NSAIDs,such as ibuprofen. These medicines increase your risk for dangerous bleeding. ?Take your medicine exactly as told, at the same time every day. ?Avoid activities that could cause injury or bruising, and follow instructions about how to preventfalls. ?Wear a medical alert bracelet or carry a card that lists what medicines you take. Lifestyle Do not use any products that contain nicotine or tobacco, such as cigarettes, e- cigarettes, and chewing tobacco. If you need help quitting, ask your health care provider. Eat heart-healthy foods. Talk with a dietitian to make an eating plan that is right for you. Exercise regularly as told by your health care provider. Do not drink alcohol. Lose weight if you are overweight. Do not use drugs, including cannabis. General instructions If you have obstructive sleep apnea, manage your condition as told by your health care provider. Do not use diet pills unless your health care provider approves. Diet pills can make heart problemsworse. Keep all follow-up visits as told by your health care provider. This is important. Contact a health care provider if you: Notice a change in the rate, rhythm, or strength of your heartbeat. Are taking a blood thinner and you notice more bruising. Tire more easily when you exercise or do heavy work. Have a sudden change in weight. Get help right away if you have: Chest pain, abdominal pain, sweating, or weakness. Trouble breathing. Side effects of blood thinners, such as blood in your vomit, stool, or urine, or bleeding that cannot stop. Any symptoms of a stroke. BE FAST is an easy way to remember the main warning signs of a stroke: ?B - Balance. Signs are dizziness, sudden trouble walking, or loss of balance. ?E - Eyes. Signs are trouble seeing or a sudden change in vision. ?F - Face. Signs are sudden weakness or numbness of the face, or the face or eyelid drooping on oneside. ?A - Arms. Signs are weakness or numbness in an arm. This happens suddenly and usually on one side of the body. ?S - Speech. Signs are sudden trouble speaking, slurred speech, or trouble understanding what people say. ?T - Time. Time to call emergency services. Write down what time symptoms started. Other signs of a stroke, such as: ?A sudden, severe headache with no known cause. ?Nausea or vomiting. ?Seizure. These symptoms may represent a serious problem that is an emergency. Do not wait to see if the symptoms will go away. Get medical help right away. Call your local emergency services (911 in the [place] Do not drive yourself to the hospital. Summary Atrial fibrillation is a type of irregular or rapid heartbeat (arrhythmia). Symptoms include a feeling that your heart is beating fast or irregularly. You may be given medicines to prevent blood clots or to treat heart rate or heart rhythm problems. Get help right away if you have signs or symptoms of a stroke. Get help right away if you cannot catch your breath or have chest pain or pressure. This information is not intended to replace advice given to you by your health care provider. Make sure you discuss any questions you have with your health care provider. Document Revised: 03/11/2020 Document Reviewed: 03/11/2020 [employer] Patient Education 2022 [employer]. 07/12/2023 15:25:00 BMI for Adults BMI for Adults What is BMI? Body mass index (BMI) is a number that is calculated from a person's weight and height. BMI can help estimate how much of a person's weight is composed of fat. BMI does not measure body fat directly.Rather, it is an alternative to procedures that directly measure body fat, which can be difficult and expensive. BMI can help identify people who may be at higher risk for certain medical problems. What are BMI measurements used for? BMI is used as a screening tool to identify possible weight problems. It helps determine whether a person is obese, overweight, a healthy weight, or underweight. BMI is useful for: Identifying a weight problem that may be related to a medical condition or may increase the risk for medical problems. Promoting changes, such as changes in diet and exercise, to help reach a healthy weight. BMI screening can be repeated to see if these changes are working. How is BMI calculated? BMI involves measuring your weight in relation to your height. Both height and weight are measured,and the BMI is calculated from those numbers. This can be done either in Georgian ([place] or metric measurements. Note that charts and online BMI calculators are available to help you find your BMI quickly and easily without having to do these calculations yourself. To calculate your BMI in Georgian ([place] measurements: 1.Measure your weight in pounds (lb). 2.Multiply the number of pounds by 703. For example, for a person who weighs 180 lb, multiply that number by 703, which equals 126,540. 3.Measure your height in inches. Then multiply that number by itself to get a measurement called inches squared. For example, for a person who is 70 inches tall, the inches squared measurement is 70 inches x 70inches, which equals 4,900 inches squared. 4.Divide the total from step 2 (number of lb x 703) by the total from step 3 (inches squared): 126,540 4,900 = 25.8. This is your BMI. To calculate your BMI in metric measurements: 1.Measure your weight in kilograms (kg). 2.Measure your height in meters (m). Then multiply that number by itself to get a measurement called meters squared. For example, for a person who is 1.75 m tall, the meters squared measurement is 1.75 m x 1.75 m, which is equal to 3.1 meters squared. 3.Divide the number of kilograms (your weight) by the meters squared number. In this example: 70 3.1 = 22.6. This is your BMI. What do the results mean? BMI charts are used to identify whether you are underweight, normal weight, overweight, or obese. The following guidelines will be used: Underweight: BMI less than 18.5. Normal weight: BMI between 18.5 and 24.9. Overweight: BMI between 25 and 29.9. Obese: BMI of 30 or above. Keep these notes in mind: Weight includes both fat and muscle, so someone with a muscular build, such as an athlete, may havea BMI that is higher than 24.9. In cases like these, BMI is not an accurate measure of body fat. To determine if excess body fat is the cause of a BMI of 25 or higher, further assessments may needto be done by a health care provider. BMI is usually interpreted in the same way for men and women. Where to find more information For more information about BMI, including tools to quickly calculate your BMI, go to these websites: Centers for Disease Control and Prevention: www.cdc.gov [employer] [employer]: www.heart.org National Heart, Lung, and Blood Richardson: www.nhlbi.nih.gov Summary Body mass index (BMI) is a number that is calculated from a person's weight and height. BMI may help estimate how much of a person's weight is composed of fat. BMI can help identify thosewho may be at higher risk for certain medical problems. BMI can be measured using Georgian measurements or metric measurements. BMI charts are used to identify whether you are underweight, normal weight, overweight, or obese. This information is not intended to replace advice given to you by your health care provider. Make sure you discuss any questions you have with your health care provider. Document Revised: 06/10/2020 Document Reviewed: 04/17/2020 [employer] Patient Education 2022 [employer]. [facility] 09-25-2023 Hospital Discharge instructions Patient Education 06/26/2023 18:04:07 Peritonsillar Abscess, [id number] Peritonsillar Abscess A peritonsillar abscess is an infected area in your throat that is filled with pus. It forms behindyour tonsils. What are the causes? This condition is usually caused by streptococcal bacteria. What increases the risk? A recent diagnosis of an infection in your mouth or throat. Being a smoker. Having gum disease or gingivitis (periodontal disease). What are the signs or symptoms? Early symptoms of this condition include: Fever and chills. A sore throat, often with pain on just one side. Swollen, tender glands (lymph nodes) in the neck. Headache. As the infection gets worse, symptoms may include: Difficulty swallowing. Drooling because of difficulty swallowing saliva. Difficulty opening your mouth. Bad breath. Changes in how the voice sounds. How is this treated? Draining the pus. Your doctor may do this with a syringe and a needle or by making a cut in the abscess. Using antibiotic medicine. Follow these instructions at home: Medicines Take njeh-nsr-pyyqwtp and prescription medicines only as told by your doctor. If you were prescribed an antibiotic, take it as told by your doctor. Do not stop taking the antibiotic even if you start to feel better. Eating and drinking Drink enough fluid to keep your pee (urine) pale yellow. While your throat is sore, try one of these: ?Only drinking liquids. ?Eating only soft foods, such as yogurt and ice cream. General instructions Rest as told by your doctor. Return to your normal activities as told by your doctor. Ask your doctor what activities are safe for you. If your abscess was drained, rinse your mouth often with salt water. ?To make salt water, dissolve 1 tsp (3 6 g) of salt in 1 cup (237 mL) of warm water. ?Do not swallow this mixture. Do not smoke or use any products that contain nicotine or tobacco. If you need help quitting, ask your doctor. Keep all follow-up visits. Contact a doctor if: You have more pain, swelling, redness, or pus in your throat. You have a headache. You have low energy or feel generally sick. You have a fever or chills. You have trouble swallowing or eating. You have signs of not enough water in the body (dehydration), such as: ?Feeling light-headed or dizzy when you are standing. ?Peeing (urinating) less than usual. ?A fast heart rate. ?Dry mouth. Get help right away if: You are unable to swallow. You have trouble breathing. Breathing is easier when you lean forward. You cough up blood. You vomit blood. You have very bad throat pain and it does not get better with medicine. These symptoms may be an emergency. Get help right away. Call your local emergency services (911 int [place] Do not wait to see if the symptoms will go away. Do not drive yourself to the hospital. Summary A peritonsillar abscess is an infected area in your throat that is filled with pus. You may be treated by having the abscess drained and by taking antibiotic medicine. Contact a doctor if you have trouble swallowing or eating. Get help right away if you cough up blood or you vomit blood. This information is not intended to replace advice given to you by your health care provider. Make sure you discuss any questions you have with your health care provider. Document Revised: 01/28/2022 Document Reviewed: 01/28/2022 [employer] Patient Education 2022 [employer] Follow Up Care 06/26/2023 14:12:57 With:Adebayo Vega Address:Unknown When:06/29/2023 17:13:16 With:Mary Llanes Address: [address] [place] [address], [address] [place] [address]- Business (1) When:06/29/2023 17:12:54 Comments:May follow-up with Dr. Austin or Dr. Vega for further evaluation of your small tonsillar abscess. With:Jamison TELLEZ Address: [address], [place] [address]- Business (1) When:06/29/2023 17:12:46 Comments:Follow-up with your primary care provider in 3 to 5 days. If symptoms worsen, do not improve, or new symptoms arise please report back to emergency department for further evaluation. [facility]09-18-2023 Hospital Discharge instructions Patient Education 06/19/2023 14:04:26 Peripheral Edema Peripheral Edema Peripheral edema is swelling that is caused by a buildup of fluid. Peripheral edema most often affects the lower legs, ankles, and feet. It can also develop in the arms, hands, and face. The area of the body that has peripheral edema will look swollen. It may also feel heavy or warm. Your clothes may start to feel tight. Pressing on the area may make a temporary dent in your skin (pitting edema).You may not be able to move your swollen arm or leg as much as usual. There are many causes of peripheral edema. It can happen because of a complication of other conditions such as heart failure, kidney disease, or a problem with your circulation. It also can be a sideeffect of certain medicines or happen because of an infection. It often happens to women during . Sometimes, the cause is not known. Follow these instructions at home: Managing pain, stiffness, and swelling Raise (elevate) your legs while you are sitting or lying down. Move around often to prevent stiffness and to reduce swelling. Do not sit or stand for long periods of time. Do not wear tight clothing. Do not wear garters on your upper legs. Exercise your legs to get your circulation going. This helps to move the fluid back into your bloodvessels, and it may help the swelling go down. Wear compression stockings as told by your health care provider. These stockings help to prevent blood clots and reduce swelling in your legs. It is important that these are the correct size. These stockings should be prescribed by your doctor to prevent possible injuries. If elastic bandages or wraps are recommended, use them as told by your health care provider. Medicines Take [id number] and prescription medicines only as told by your health care provider. Your health care provider may prescribe medicine to help your body get rid of excess water (diuretic). Take this medicine if you are told to take it. General instructions Eat a low-salt (low-sodium) diet as told by your health care provider. Sometimes, eating less salt may reduce swelling. Pay attention to any changes in your symptoms. Moisturize your skin daily to help prevent skin from cracking and draining. Keep all follow-up visits. This is important. Contact a health care provider if: You have a fever. You have swelling in only one leg. You have increased swelling, redness, or pain in one or both of your legs. You have drainage or sores at the area where you have edema. Get help right away if: You have edema that starts suddenly or is getting worse, especially if you are or have a medical condition. You develop shortness of breath, especially when you are lying down. You have pain in your chest or abdomen. You feel weak. You feel like you will faint. These symptoms may be an emergency. Get help right away. Call 911. Do not wait to see if the symptoms will go away. Do not drive yourself to the hospital. Summary Peripheral edema is swelling that is caused by a buildup of fluid. Peripheral edema most often affects the lower legs, ankles, and feet. Move around often to prevent stiffness and to reduce swelling. Do not sit or stand for long periodsof time. Pay attention to any changes in your symptoms. Contact a health care provider if you have edema that starts suddenly or is getting worse, especially if you are or have a medical condition. Get help right away if you develop shortness of breath, especially when lying down. This information is not intended to replace advice given to you by your health care provider. Make sure you discuss any questions you have with your health care provider. Document Revised: 05/23/2022 Document Reviewed: 05/23/2022 [employer] Patient Education 2022 [employer] Follow Up Care 01/20/2023 13:58:59 With:GEOFF PINTO FAAFP, Jamison Campos, VARINDER, PED Address: [address] [place] [address] [place] [address]- When:Within 3 Month(s) [facility] 07-06-2023 Hospital Discharge instructions Patient Education 04/06/2023 11:49:21 Atrial Fibrillation, Ncsp-sa-[id number] Atrial Fibrillation Atrial fibrillation is a type of heartbeat that is irregular or fast. If you have this condition, your heart beats without any order. This makes it hard for your heart to pump blood in a normal way. Atrial fibrillation may come and go, or it may become a long-lasting problem. If this condition is not treated, it can put you at higher risk for stroke, heart failure, and other heart problems. What are the causes? This condition may be caused by diseases that damage the heart. They include: High blood pressure. Heart failure. Heart valve disease. Heart surgery. Other causes include: Diabetes. Thyroid disease. Being overweight. Kidney disease. Sometimes the cause is not known. What increases the risk? You are more likely to develop this condition if: You are older. You smoke. You exercise often and very hard. You have a family history of this condition. You are a man. You use drugs. You drink a lot of alcohol. You have lung conditions, such as emphysema, pneumonia, or COPD. You have sleep apnea. What are the signs or symptoms? Common symptoms of this condition include: A feeling that your heart is beating very fast. Chest pain or discomfort. Feeling short of breath. Suddenly feeling light-headed or weak. Getting tired easily during activity. Fainting. Sweating. In some cases, there are no symptoms. How is this treated? Treatment for this condition depends on underlying conditions and how you feel when you have atrialfibrillation. They include: Medicines to: ?Prevent blood clots. ?Treat heart rate or heart rhythm problems. Using devices, such as a pacemaker, to correct heart rhythm problems. Doing surgery to remove the part of the heart that sends bad signals. Closing an area where clots can form in the heart (left atrial appendage). In some cases, your doctor will treat other underlying conditions. Follow these instructions at home: Medicines Take xhle-sow-aidjyvs and prescription medicines only as told by your doctor. Do not take any new medicines without first talking to your doctor. If you are taking blood thinners: ?Talk with your doctor before you take any medicines that have aspirin or NSAIDs, such as ibuprofen, in them. ?Take your medicine exactly as told by your doctor. Take it at the same time each day. ?Avoid activities that could hurt or bruise you. Follow instructions about how to prevent falls. ?Wear a bracelet that says you are taking blood thinners. Or, carry a card that lists what medicines you take. Lifestyle Do not use any products that have nicotine or tobacco in them. These include cigarettes, e-cigarettes, and chewing tobacco. If you need help quitting, ask your doctor. Eat heart-healthy foods. Talk with your doctor about the right eating plan for you. Exercise regularly as told by your doctor. Do not drink alcohol. Lose weight if you are overweight. Do not use drugs, including cannabis. General instructions If you have a condition that causes breathing to stop for a short period of time (apnea), treat it as told by your doctor. Keep a healthy weight. Do not use diet pills unless your doctor says they are safe for you. Diet pills may make heart problems worse. Keep all follow-up visits as told by your doctor. This is important. Contact a doctor if: You notice a change in the speed, rhythm, or strength of your heartbeat. You are taking a blood-thinning medicine and you get more bruising. You get tired more easily when you move or exercise. You have a sudden change in weight. Get help right away if: You have pain in your chest or your belly (abdomen). You have trouble breathing. You have side effects of blood thinners, such as blood in your vomit, poop (stool), or pee (urine),or bleeding that cannot stop. You have any signs of a stroke. BE FAST is an easy way to remember the main warning signs: ?B - Balance. Signs are dizziness, sudden trouble walking, or loss of balance. ?E - Eyes. Signs are trouble seeing or a change in how you see. ?F - Face. Signs are sudden weakness or loss of feeling in the face, or the face or eyelid droopingon one side. ?A - Arms. Signs are weakness or loss of feeling in an arm. This happens suddenly and usually on one side of the body. ?S - Speech. Signs are sudden trouble speaking, slurred speech, or trouble understanding what people say. ?T - Time. Time to call emergency services. Write down what time symptoms started. You have other signs of a stroke, such as: ?A sudden, very bad headache with no known cause. ?Feeling like you may vomit (nausea). ?Vomiting. ?A seizure. These symptoms may be an emergency. Do not wait to see if the symptoms will go away. Get medical help right away. Call your local emergency services (911 in the [place] Do not drive yourself to the hospital. Summary Atrial fibrillation is a type of heartbeat that is irregular or fast. You are at higher risk of this condition if you smoke, are older, have diabetes, or are overweight. Follow your doctor's instructions about medicines, diet, exercise, and follow-up visits. Get help right away if you have signs or symptoms of a stroke. Get help right away if you cannot catch your breath, or you have chest pain or discomfort. This information is not intended to replace advice given to you by your health care provider. Make sure you discuss any questions you have with your health care provider. Document Revised: 03/11/2020 Document Reviewed: 03/11/2020 [employer] Patient Education 2022 [employer]. Follow Up Care 03/31/2023 12:04:50 With:GEOFF PINTO FAAFP, Jamison Campos, VARINDER, PED Address: [place] [address]- When:Within 2 Month(s) [facility] 07-02-2023 Hospital Discharge instructions Patient Education 04/02/2023 14:31:34 Dizziness, Uffz-qa-Gsru Dizziness Dizziness is a common problem. It makes you feel unsteady or light-headed. You may feel like you are about to pass out (faint). Dizziness can lead to getting hurt if you stumble or fall. Dizziness can be caused by many things, including: Medicines. Not having enough water in your body (dehydration). Illness. Follow these instructions at home: Eating and drinking Drink enough fluid to keep your pee (urine) pale yellow. This helps to keep you from getting dehydrated. Try to drink more clear fluids, such as water. Do not drink alcohol. Limit how much caffeine you drink or eat, if your doctor tells you to do that. Limit how much salt (sodium) you drink or eat, if your doctor tells you to do that. Activity Avoid making quick movements. ?Stand up slowly from sitting in a chair, and steady yourself until you feel okay. ?In the morning, first sit up on the side of the bed. When you feel okay, stand up slowly while youhold onto something. Do this until you know that your balance is okay. If you need to machine compositor one place for a long time, move your legs often. Tighten and relax the muscles in your legs while you are standing. Do not drive or use machinery if you feel dizzy. Avoid bending down if you feel dizzy. Place items in your home so you can reach them easily withoutleaning over. Lifestyle Do not smoke or use any products that contain nicotine or tobacco. If you need help quitting, ask your doctor. Try to lower your stress level. You can do this by using methods such as yoga or meditation. Talk with your doctor if you need help. General instructions Watch your dizziness for any changes. Take qmqv-frv-xvzfmnq and prescription medicines only as told by your doctor. Talk with your doctorif you think that you are dizzy because of a medicine that you are taking. Tell a friend or a family member that you are feeling dizzy. If he or she notices any changes in your behavior, have this person call your doctor. Keep all follow-up visits. Contact a doctor if: Your dizziness does not go away. Your dizziness or light-headedness gets worse. You feel like you may vomit (are nauseous). You have trouble hearing. You have new symptoms. You are unsteady on your feet. You feel like the room is spinning. You have neck pain or a stiff neck. You have a fever. Get help right away if: You vomit or have watery poop (diarrhea), and you cannot eat or drink anything. You have trouble: ?Talking. ?Walking. ?Swallowing. ?Using your arms, hands, or legs. You feel generally weak. You are not thinking clearly, or you have trouble forming sentences. A friend or family member may notice this. You have: ?Chest pain. ?Pain in your belly (abdomen). ?Shortness of breath. ?Sweating. Your vision changes. You are bleeding. You have a very bad headache. These symptoms may be an emergency. Get help right away. Call your local emergency services (911 inthe [place] Do not wait to see if the symptoms will go away. Do not drive yourself to the hospital. Summary Dizziness makes you feel unsteady or light-headed. You may feel like you are about to pass out (faint). Drink enough fluid to keep your pee (urine) pale yellow. Do not drink alcohol. Avoid making quick movements if you feel dizzy. Watch your dizziness for any changes. This information is not intended to replace advice given to you by your health care provider. Make sure you discuss any questions you have with your health care provider. Document Revised: 08/23/2021 Document Reviewed: 08/23/2021 [employer] Patient Education 2022 [employer]. Follow Up Care 04/02/2023 12:03:58 With:Jamison TELLEZ Address: [address] [facility], [place] [address]- Business (1) When:04/05/2023 14:25:[address] [facility]06-06[facility]2023 Hospital Discharge instructions Patient Education 03/07/2023 11:03:33 Preventing Atrial Fibrillation-Related Stroke Preventing Atrial Fibrillation-Related Stroke Atrial fibrillation (AFib) is a common type of irregular or rapid heartbeat (arrhythmia) that increases the risk for a stroke. In AFib, the top portions of the heart (atria) beat out of sync with thelower portions of the heart. When the muscles of the atria tighten in an uncoordinated way (fibrillating), blood can pool in the heart and form clots. A stroke can be caused by a blood clot that travels to the brain. This type of stroke is preventable. Understanding AFib and knowing how to properly manage it can prevent a stroke from happening. How can this condition affect me? Having AFib can increase your risk for a stroke. A stroke is a medical emergency. It can lead to brain damage and can sometimes be life-threatening. A stroke can be a life-changing event. What can increase my risk? Having AFib can increase your risk of stroke. Other risk factors include: Having heart failure. Having high blood pressure. Being older than age 65. Having diabetes. Having a history of vascular disease, such as heart attack or stroke. Being female. Having a history of transient ischemic attacks (TIAs). This is sometimes called a ministroke. Having a family history of stroke. Risk factors that you can change include: Smoking. High cholesterol. Being inactive (sedentary lifestyle). Eating a diet that is high in fat, cholesterol, and salt. What actions can I take to prevent this? Maintain a healthy weight. Get regular exercise. This can include at least 40 minutes of moderate exercise on most days, such as walking at a fast pace, or vigorous exercise, such as jogging. Get evaluated for obstructive sleep apnea. Talk to your health care provider about getting a sleep evaluation if you snore a lot or have excessive sleepiness. Manage any other medical conditions you have, such as hypertension or diabetes. Medicines Take xhxm-jjx-tlgajcy and prescription medicines only as told by your health care provider. If your health care provider prescribed an anticoagulant, take it exactly as told. Taking too much blood-thinning medicine can cause bleeding. Taking too little may not give you the protection that you need against stroke and other problems. Eating and drinking Eat healthy foods, including at least 5 servings of fruits and vegetables a day. Do not drink alcohol. Do not drink beverages that have caffeine, such as coffee, soda, and tea. Follow instructions about your diet as told by your health care provider. Questions to ask your health care provider Contact a health care provider if: You notice a change in the rate, rhythm, or strength of your heartbeat. You feel dizzy. You are taking an anticoagulant and you have more bruises than usual. You get tired more easily when you exercise or do similar activities. Get help right away if: You have chest pain. You have trouble breathing. You have pain in your abdomen. You experience unusual sweating or weakness. You take anticoagulants and you: ?Have severe headaches or confusion. ?Have blood in your vomit, bowel movement, or urine. ?Have bleeding that will not stop. ?Fall or injure your head. You have any symptoms of a stroke. BE FAST is an easy way to remember the main warning signs of astroke: ?B - Balance. Signs are dizziness, trouble walking, or loss of balance. ?E - Eyes. Signs are trouble seeing or a sudden change in vision. ?F - Face. Signs are sudden weakness or numbness of the face, or the face or eyelid drooping on oneside. ?A - Arms. Signs are weakness or numbness in an arm. This happens suddenly and usually on one side of the body. ?S - Speech. Signs are sudden trouble speaking, slurred speech, or trouble understanding what people say. ?T - Time. Time to call emergency services. Write down what time symptoms started. You have other signs of a stroke, such as: ?A sudden, severe headache with no known cause. ?Nausea or vomiting. ?Seizure. These symptoms may represent a serious problem that is an emergency. Do not wait to see if the symptoms will go away. Get medical help right away. Call your local emergency services (911 in the [place] Do not drive yourself to the hospital. Summary Having atrial fibrillation (AFib) can increase the risk for a stroke. Talk with your health care provider about what symptoms to watch for. AFib-related stroke is preventable. Proper management of AFib can prevent you from having a stroke. Talk with your health care provider about whether anticoagulant medicine is right for you. Learn the warning signs of a stroke and remember BE FAST. This information is not intended to replace advice given to you by your health care provider. Make sure you discuss any questions you have with your health care provider. Document Revised: 05/27/2021 Document Reviewed: 05/27/2021 [employer] Patient Education 2022 [employer]. Follow Up Care 02/28/2023 09:31:31 With:GEOFF PINTO FAAFP, Jamison Campos, VARINDER, PED Address: [address] [place] [address] [place] [address]- When:Within 3 Month(s) [facility] 05-28-2023 History of Present illness Narrative* Juaquin Farrell MD - 02/26/2023 10:07 PM EDT Images from the original note were not included. EMERGENCY TRIAGE, TREAT AND TRANSPORT (ET3) DOCUMENTATION OF TELEHEALTH VISIT Date / Time: 02/26/20232204 Name: Jose Rocha : 1940 SSN: (Not on file) EMS Agency: [facility] [x] Verbal consent obtained [] Implied consent - patient with potential emergency medical condition requiring assessment of capacity to refuse treatment and/or transport VITAL SIGNS: see flowsheet documentation Reason for Telehealth Visit: feels a little weak History of Present Illness: Wanted to get checked out. [place] warm and a little weak. Recent discharge from [facility] with atrial fibrillation issues. Was placed on eliquus and discharged. Takes flecainide has been on this for a few years. No blood in urine or stool. Rates originally 90-120, now 80-100. Additional pertinent PMHx, SocHx, FamHx: Review of Systems: Denies the following: chest pain dyspnea fainting Exam: General: Awake, no distress ENT: normocephalic, atraumatic Pulmonary: No respiratory distress Cardiovascular: Well perfused. Neurologic: Oriented to person, place, time and events. Moving all extremities equally. Psychiatric: Appropriate. Good insight and judgement. Medical Decision Making: Patient with known atrial fibrillation presents with nonspecific symptoms. Call level 1 due to the concern for feeling slightly weak. If the baby much improved now. His initial heart rate was 90-120,it is now consistently below 100. The patient is well appearing, appears very well educated about his illness. He was started on Eliquis with the discharge and he believes that their plan is to attempt to cardiovert him and several weeks. I advised him that it appears that his rate control is not optimal, but he is not having alarm symptoms of chest pain, shortness of breath, near-syncope or syncope, he is fine to go with outpatient follow-up. He agrees to at a minimum contact his doctor on Monday. He knows that if any of these symptoms happen in the meantime he should seek medical attentionimmediately. He also denies any signs of bleeding in his urine or in his bowel movement. He has hadno recent trauma. Patient demonstrates good decision-making capacity does not indicate any signs ofintoxication or altered mental status. Disposition Supported by Telehealth Assessment: ET3 transport decisions: Treat in place EMS Disposition Reported: Same ET3 Encounter Completed by: Juaquin Farrell MD documented in this [id number] Hospital Discharge instructions Patient Education 02/25/2023 16:09:36 Atrial Fibrillation Atrial Fibrillation Atrial fibrillation is a type of irregular or rapid heartbeat (arrhythmia). In atrial fibrillation,the top part of the heart (atria) beats in an irregular pattern. This makes the heart unable to pump blood normally and effectively. The goal of treatment is to prevent blood clots from forming, control your heart rate, or restore your heartbeat to a normal rhythm. If this condition is not treated, it can cause serious problems, such as a weakened heart muscle (cardiomyopathy) or a stroke. What are the causes? This condition is often caused by medical conditions that damage the heart's electrical system. These include: High blood pressure (hypertension). This is the most common cause. Certain heart problems or conditions, such as heart failure, coronary artery disease, heart valve problems, or heart surgery. Diabetes. Overactive thyroid (hyperthyroidism). Obesity. Chronic kidney disease. In some cases, the cause of this condition is not known. What increases the risk? This condition is more likely to develop in: Older people. People who smoke. Athletes who do endurance exercise. People who have a family history of atrial fibrillation. Men. People who use drugs. People who drink a lot of alcohol. People who have lung conditions, such as emphysema, pneumonia, or COPD. People who have obstructive sleep apnea. What are the signs or symptoms? Symptoms of this condition include: A feeling that your heart is racing or beating irregularly. Discomfort or pain in your chest. Shortness of breath. Sudden light-headedness or weakness. Tiring easily during exercise or activity. Fatigue. Syncope (fainting). Sweating. In some cases, there are no symptoms. How is this diagnosed? Your health care provider may detect atrial fibrillation when taking your pulse. If detected, this condition may be diagnosed with: An electrocardiogram (ECG) to check electrical signals of the heart. An ambulatory groundwater monitoring technician to record your heart's activity for a few days. A transthoracic echocardiogram (TTE) to create pictures of your heart. A transesophageal echocardiogram (ROYA) to create even closer pictures of your heart. A stress test to check your blood supply while you exercise. Imaging tests, such as a CT scan or chest X-ray. Blood tests. How is this treated? Treatment depends on underlying conditions and how you feel when you experience atrial fibrillation. This condition may be treated with: Medicines to prevent blood clots or to treat heart rate or heart rhythm problems. Electrical cardioversion to reset the heart's rhythm. A pacemaker to correct abnormal heart rhythm. Ablation to remove the heart tissue that sends abnormal signals. Left atrial appendage closure to seal the area where blood clots can form. In some cases, underlying conditions will be treated. Follow these instructions at home: Medicines Take over-the counter and prescription medicines only as told by your health care provider. Do not take any new medicines without talking to your health care provider. If you are taking blood thinners: ? Talk with your health care provider before you take any medicines that contain aspirin or NSAIDs,such as ibuprofen. These medicines increase your risk for dangerous bleeding. ?Take your medicine exactly as told, at the same time every day. ?Avoid activities that could cause injury or bruising, and follow instructions about how to preventfalls. ?Wear a medical alert bracelet or carry a card that lists what medicines you take. Lifestyle Do not use any products that contain nicotine or tobacco, such as cigarettes, e- cigarettes, and chewing tobacco. If you need help quitting, ask your health care provider. Eat heart-healthy foods. Talk with a dietitian to make an eating plan that is right for you. Exercise regularly as told by your health care provider. Do not drink alcohol. Lose weight if you are overweight. Do not use drugs, including cannabis. General instructions If you have obstructive sleep apnea, manage your condition as told by your health care provider. Do not use diet pills unless your health care provider approves. Diet pills can make heart problemsworse. Keep all follow-up visits as told by your health care provider. This is important. Contact a health care provider if you: Notice a change in the rate, rhythm, or strength of your heartbeat. Are taking a blood thinner and you notice more bruising. Tire more easily when you exercise or do heavy work. Have a sudden change in weight. Get help right away if you have: Chest pain, abdominal pain, sweating, or weakness. Trouble breathing. Side effects of blood thinners, such as blood in your vomit, stool, or urine, or bleeding that cannot stop. Any symptoms of a stroke. BE FAST is an easy way to remember the main warning signs of a stroke: ?B - Balance. Signs are dizziness, sudden trouble walking, or loss of balance. ?E - Eyes. Signs are trouble seeing or a sudden change in vision. ?F - Face. Signs are sudden weakness or numbness of the face, or the face or eyelid drooping on oneside. ?A - Arms. Signs are weakness or numbness in an arm. This happens suddenly and usually on one side of the body. ?S - Speech. Signs are sudden trouble speaking, slurred speech, or trouble understanding what people say. ?T - Time. Time to call emergency services. Write down what time symptoms started. Other signs of a stroke, such as: ?A sudden, severe headache with no known cause. ?Nausea or vomiting. ?Seizure. These symptoms may represent a serious problem that is an emergency. Do not wait to see if the symptoms will go away. Get medical help right away. Call your local emergency services (911 in the [place] Do not drive yourself to the hospital. Summary Atrial fibrillation is a type of irregular or rapid heartbeat (arrhythmia). Symptoms include a feeling that your heart is beating fast or irregularly. You may be given medicines to prevent blood clots or to treat heart rate or heart rhythm problems. Get help right away if you have signs or symptoms of a stroke. Get help right away if you cannot catch your breath or have chest pain or pressure. This information is not intended to replace advice given to you by your health care provider. Make sure you discuss any questions you have with your health care provider. Document Revised: 03/11/2020 Document Reviewed: 03/11/2020 [employer] Patient Education 2022 [employer]. Follow Up Care 02/24/2023 16:40:38 With:Atilio Evans Address: [address] [place] [address] [place] [address]- Business (1) When:2 weeks With:Jamison TELLEZ Address: [address] [place] [address]- Business (1) When:Within 3 Day(s) [facility]05-27-2023 Evaluation + Plan noteExtracted from: Title:SOAP Note: Simple Author:Nathan PUENTES, Willi am P Date:02/25/23 Impression and Plan CONSULT DICTATED DISCUSSED WITH DR HERNANDEZ REC: HOME ON FLECAINIDE 150 BID AND ELIQUIS 5 BID STOP ASA OTHER MEDS BEFORE OV IN ONE TO TWO WEEKS. Extracted from: Title:APSO Note Author:Jaime GRAF MD Date: 1. Atrial fibrillation with RVR (I48.91: Unspecified atrial fibrillation) - monitor on telemetry - given 200 mg flecainide PO last night, continue 100 mg po q12, started on xarelto - consult to [facility] ordered Ordered: Initial Hospital Care/Day High 75 Minutes [id number] 2. Hypertension (I10: Essential (primary) hypertension) - stable, continue PO norvasc 3. Hyperlipidemia (E78.5: Hyperlipidemia, unspecified) - stable, continue PO atorvastatin 4. BPH without urinary obstruction (N40.0: Benign prostatic hyperplasia without lower urinary tract symptoms) - stable, continue PO flomax 5. No contraindication to deep vein thrombosis (DVT) prophylaxis (Z78.9: Other specified health status) - ordered SCDs, continue xarelto PO Orders: acetaminophen, 650 mg = 2 tab(s), Tab, Oral, q6hr PRN Pain, Routine, Start date 02/24/23 18:21:00 EDT, 02/24/23 18:21:00 EDT flecainide, 200 mg = 2 tab(s), Tab, Oral, Once, Stop date 02/24/23 19:00:00 EDT, Routine, Start date 02/24/23 19:00:00 EDT, 02/24/23 18:19:00 EDT flecainide, 100 mg = 1 tab(s), Tab, Oral, q12hr, Routine, Start date 02/25/23 9:00:00 EDT ondansetron, 4 mg = 2 mL, Injection, IV Push, q6hr PRN Nausea, Routine, Start date 02/24/23 18:21:00 EDT, 02/24/23 18:21:00 EDT potassium chloride, 40 mEq = 2 tab(s), Tab-ER, Oral, Once, Stop date 02/24/23 19:00:00 EDT, Routine, Start date 02/24/23 19:00:00 EDT, 02/24/23 18:24:00 EDT rivaroxaban, 20 mg = 1 tab(s), Tab, Oral, Supper, Routine, Start date 02/24/23 18:18:00 EDT, 02/24/23 18:18:00 EDT zolpidem, 10 mg = 2 tab(s), Tab, Oral, Once a day (at bedtime) PRN Sleep, Routine, Start date 02/24/23 18:22:00 EDT Ambulate with Assistance Basic Metabolic Panel Below the Knee Intermittent Pneumatic Compression Device Cardiac Monitoring Consult to Cardiology eGFR Evaluate Need For Continued Telemetry Extra Lav Tube Intake and Output Magnesium Level Notify Provider Vital Signs Notify Provider Vital Signs Occupational Therapy Evaluate Patient, Develop a Plan of Care and Implement Plan Oxygen Protocol Physical Therapy Evaluate Patient, Develop a Plan of Care and Implement Plan Place in Status Pulse Oximetry Regular Diet Vital Signs Weight Extracted from: Title:Admission H & P Author:Jaime GRAF MD Date :02/24/23 1. Atrial fibrillation with RVR (I48.91: Unspecified atrial fibrillation) - monitor on telemetry - ED physician d/w Dr. Amezquita of [facility] who recommended flecainide 200 mg PO x 1 tonight, then continue 100 mg po bid tomorrow, also as per cardiology start Xarelto 20 mg po q day - consult to [facility] ordered 2. Hypertension (I10: Essential (primary) hypertension) - stable, continue PO norvasc 3. Hyperlipidemia (E78.5: Hyperlipidemia, unspecified) - stable, continue PO atorvastatin 4. BPH without urinary obstruction (N40.0: Benign prostatic hyperplasia without lower urinary tract symptoms) - stable, continue PO flomax 5. No contraindication to deep vein thrombosis (DVT) prophylaxis (Z78.9: Other specified health status) - ordered SCDs, start xarelto PO pt will be admitted for observation possible discharge in next 24 hours Orders: acetaminophen, 650 mg = 2 tab(s), Tab, Oral, q6hr PRN Pain, Routine, Start date 02/24/23 18:21:00 EDT, 02/24/23 18:21:00 EDT flecainide, 200 mg = 2 tab(s), Tab, Oral, Once, Stop date 02/24/23 19:00:00 EDT, Routine, Start date 02/24/23 19:00:00 EDT, 02/24/23 18:19:00 EDT flecainide, 100 mg = 1 tab(s), Tab, Oral, q12hr, Routine, Start date 02/25/23 9:00:00 EDT, 02/25/23 9:00:00 EDT ondansetron, 4 mg = 2 mL, Injection, IV Push, q6hr PRN Nausea, Routine, Start date 02/24/23 18:21:00 EDT, 02/24/23 18:21:00 EDT potassium chloride, 40 mEq = 2 tab(s), Tab-ER, Oral, Once, Stop date 02/24/23 19:00:00 EDT, Routine, Start date 02/24/23 19:00:00 EDT, 02/24/23 18:24:00 EDT rivaroxaban, 20 mg = 1 tab(s), Tab, Oral, Supper, Routine, Start date 02/24/23 18:18:00 EDT, 02/24/23 18:18:00 EDT zolpidem, 10 mg = 2 tab(s), Tab, Oral, Once a day (at bedtime) PRN Sleep, Routine, Start date 02/24/23 18:22:00 EDT, 02/24/23 18:22:00 EDT Ambulate with Assistance Basic Metabolic Panel Below the Knee Intermittent Pneumatic Compression Device Cardiac Monitoring Consult to Cardiology Evaluate Need For Continued Telemetry Incentive Spirometry Intake and Output Magnesium Level Notify Provider Vital Signs Notify Provider Vital Signs Occupational Therapy Evaluate Patient, Develop a Plan of Care and Implement Plan Oxygen Protocol Physical Therapy Evaluate Patient, Develop a Plan of Care and Implement Plan Place in Status Pulse Oximetry Regular Diet Vital Signs Weight Extracted from: Title:ED Note Author:Dmitry Austin MD Date: 1. Atrial fibrillation with RVR (I48.91: Unspecified atrial fibrillation) Orders: CVA/TIA Inclusion/Exclusion Criteria ED Physician consult Hospitalist for continued care NIH Stroke Scale Future Appointments Appointment Date:05/18/2023 02:00:00 PM Scheduled Provider: Location:[facility] Appointment Type: Medicare Wellness Subsequent Appointment Date:05/22/2023 01:40:00 PM Scheduled Provider:Jamison TELLEZ DO, FAAFP Location:[facility] Appointment Type:[facility]03-14-2023 Hospital Discharge instructions Patient Education 12/13/2022 13:35:10 Wound Care, Adult Wound Care, Adult Taking care of your wound properly can help to prevent pain, infection, and scarring. It can also help your wound to heal more quickly. How to care for your wound Wound care Follow instructions from your health care provider about how to take care of your wound. Make sure you: ?Wash your hands with soap and water before you change the bandage (dressing). If soap and water are not available, use hand electrical equipment assembler. ?Change your dressing as told by your health care provider. ?Leave stitches (sutures), skin glue, or adhesive strips in place. These skin closures may need to stay in place for 2 weeks or longer. If adhesive strip edges start to loosen and curl up, you may trim the loose edges. Do not remove adhesive strips completely unless your health care provider tells you to do that. Check your wound area every day for signs of infection. Check for: ?Redness, swelling, or pain. ?Fluid or blood. ?Warmth. ?Pus or a bad smell. Ask your health care provider if you should clean the wound with mild soap and water. Doing this may include: ?Using a clean towel to pat the wound dry after cleaning it. Do not rub or scrub the wound. ?Applying a cream or ointment. Do this only as told by your health care provider. ?Covering the incision with a clean dressing. Ask your health care provider when you can leave the wound uncovered. Keep the dressing dry until your health care provider says it can be removed. Do not take baths, swim, use a hot tub, or do anything that would put the wound underwater until your health care provider approves. Ask your health care provider if you can take showers. You may only be allowed to take sponge baths. Medicines If you were prescribed an antibiotic medicine, cream, or ointment, take or use the antibiotic as told by your health care provider. Do not stop taking or using the antibiotic even if your condition improves. Take [id number] and prescription medicines only as told by your health care provider. If you were prescribed pain medicine, take it 30 or more minutes before you do any wound care or as told byyour health care provider. General instructions Return to your normal activities as told by your health care provider. Ask your health care provider what activities are safe. Do not scratch or pick at the wound. Do not use any products that contain nicotine or tobacco, such as cigarettes and e-cigarettes. These may delay wound healing. If you need help quitting, ask your health care provider. Keep all follow-up visits as told by your health care provider. This is important. Eat a diet that includes protein, vitamin A, vitamin C, and other nutrient-rich foods to help the wound heal. ?Foods rich in protein include meat, dairy, beans, nuts, and other sources. ?Foods rich in vitamin A include carrots and dark green, leafy vegetables. ?Foods rich in vitamin C include citrus, tomatoes, and other fruits and vegetables. ?Nutrient-rich foods have protein, carbohydrates, fat, vitamins, or minerals. Eat a variety of healthy foods including vegetables, fruits, and whole grains. Contact a health care provider if: You received a tetanus shot and you have swelling, severe pain, redness, or bleeding at the injection site. Your pain is not controlled with medicine. You have redness, swelling, or pain around the wound. You have fluid or blood coming from the wound. Your wound feels warm to the touch. You have pus or a bad smell coming from the wound. You have a fever or chills. You are nauseous or you vomit. You are dizzy. Get help right away if: You have a red streak going away from your wound. The edges of the wound open up and separate. Your wound is bleeding, and the bleeding does not stop with gentle pressure. You have a rash. You faint. You have trouble breathing. Summary Always wash your hands with soap and water before changing your bandage (dressing). To help with healing, eat foods that are rich in protein, vitamin A, vitamin C, and other nutrients. Check your wound every day for signs of infection. Contact your health care provider if you suspectthat your wound is infected. This information is not intended to replace advice given to you by your health care provider. Make sure you discuss any questions you have with your health care provider. Document Released: 06/27/2009 Document Revised: 01/06/2020 Document Reviewed: 04/04/2017 [employer] Patient Education 2020 [employer]. 12/13/2022 13:35:08 Abrasion, Ltbx-je-Eqzq Abrasion An abrasion is a cut or a scrape on the surface of your skin. An abrasion does not go through all the layers of your skin. It is important to take good care of your abrasion to prevent infection. Follow these instructions at home: Medicines Take or apply apjv-fyh-olmjtgz and prescription medicines only as told by your doctor. If you were prescribed an antibiotic medicine, apply it as told by your doctor. Do not stop using the antibiotic even if you start to feel better. Wound care Clean the wound 2 3 times a day or as often as told by your doctor. To do this: 1.Wash the wound with mild soap and water. 2.Rinse off the soap. 3.Pat a clean towel on the wound to dry it. Do not rub it. Keep the bandage (dressing) clean and dry as told by your doctor. Follow instructions from your doctor about how to take care of your wound. Make sure you: ?Wash your hands with soap and water before you change your bandage. If you cannot use soap and water, use hand electrical equipment assembler. ?Change your bandage as told by your doctor. Check your wound every day for signs of infection. Check for: ?Redness, swelling, or pain. ?Fluid or blood. ?Warmth. ?Pus or a bad smell. If directed, put ice on the injured area. To do this: ?Put ice in a plastic bag. ?Place a towel between your skin and the bag. ?Leave the ice on for 20 minutes, 2 3 times a day. General instructions Do not take baths, swim, or use a hot tub until your doctor says it is okay. If there is swelling, raise (elevate) the injured area above the level of your heart while you are sitting or lying down. Keep all follow-up visits as told by your doctor. This is important. Contact a doctor if: You were given a tetanus shot, and you have any of these where the needle went in: ?Swelling. ?Very bad pain. ?Redness. ?Bleeding. You have a lot of pain, and medicine does not help. You have any of these at the site of the wound: ?More redness. ?More swelling. ?More pain. Get help right away if: You have a red streak going away from your wound. You have a fever. You have fluid, blood, or pus coming from your wound. There is a bad smell coming from your wound or bandage. Summary An abrasion is a cut or a scrape on the surface of your skin. Take good care of your abrasion so it does not get infected. Clean the wound with mild soap and water, and change your bandage as told by your doctor. Call your doctor if you have redness, swelling, or more pain in your wound. Get help right away if you have a fever or if you have fluid, blood, pus, a bad smell, or a red streak coming from the wound. This information is not intended to replace advice given to you by your health care provider. Make sure you discuss any questions you have with your health care provider. Document Released: 03/06/2009 Document Revised: 08/31/2018 Document Reviewed: 05/10/2018 [employer] Patient Education 2020 [employer]. Follow Up Care 12/09/2022 12:51:54 With:GEOFF PINTO FAAFP, Jamison Campos, VARINDER, PED Address: [address] [place] [address] [place] [address]- When:Within 2 Month(s) [facility] 02-26-2023 Evaluation + Plan noteExtracted from: Title:ED Note Author:Denisse Sepulveda PA-C Date:11/27/22 1. Wounds, multiple open, lo wer extremity (S81.809A: Unspecified open wound, unspecified lower leg, initial encounter) Orders: bacitracin topical, 3 riki, Ointment, Topical, Once, Stop date 11/27/22 14:35:00 EST, STAT, Start date 11/27/22 14:35:00 EST Sodium Chloride 0.9% intravenous solution, 500 mL, Soln-IV, IV, Once, Stop date 11/27/22 10:25:00 EST, STAT, Start date 11/27/22 10:25:00 EST, 500 mL/hr, Infuse over 1, hour(s) Automated Diff B-Type Natriuretic Peptide Basic Metabolic Panel Blood Culture Charcoal Blood Culture Charcoal CBC w/ Auto Diff ECG 12 Lead Adult eGFR Extra Blue Tube Extra SST Tube Hepatic Function Panel Lactic Acid Saline Lock Insert Troponin 0 Hr. Troponin 3 Hr. UA With Cult Reflex US LE Venous Duplex Left XR Chest Single View Future Appointments Appointment Date:11/28/2022 03:00:00 PM Scheduled Provider: Location:.[facility] [place] Appointment Type:PT Traction Second (FT) Appointment Date:12/01/2022 01:00:00 PM Scheduled Provider: Location[facility] [place] Appointment Type:PT Traction Second (FT) Appointment Date:12/02/2022 02:00:00 PM Scheduled Provider: Location:.[facility] [place] Appointment Type:PT Re-Eval 30 (FT) Appointment Date:01/16/2023 02:20:00 PM Scheduled Provider:Jamison TELLEZ DO, FAAFP Location:[facility] Appointment Type:FM Open Diagnostic Tests Pending * Blood Culture Charcoal 11/27/22 * Blood Culture Charcoal 11/27/[address] [facility]02-26-2023 Hospital Discharge instructions Follow Up Care 11/27/2022 10:13:34 With:[facility]- [phone] Address:Unknown When:11/30/2022 14:35:00 With:Jamison TELLEZ Address: [address] [facility] [place] [address] [facility] (1) When:Within 3 Day(s) [facility]01-05-2023 Hospital Discharge instructions Patient Education 10/06/2022 15:42:57 Managing Your Hypertension Managing Your Hypertension Hypertension is commonly called high blood pressure. This is when the force of your blood pressing against the cage of your arteries is too strong. Arteries are blood vessels that carry blood from your heart throughout your body. Hypertension forces the heart to work harder to pump blood, and may cause the arteries to become narrow or stiff. Having untreated or uncontrolled hypertension can cause heart attack, stroke, kidney disease, and other problems. What are blood pressure readings? A blood pressure reading consists of a higher number over a lower number. Ideally, your blood pressure should be below 120/80. The first ( top ) number is called the systolic pressure. It is a measure of the pressure in your arteries as your heart beats. The second ( bottom ) number is called the diastolic pressure. It is a measure of the pressure in your arteries as the heart relaxes. What does my blood pressure reading mean? Blood pressure is classified into four stages. Based on your blood pressure reading, your health care provider may use the following stages to determine what type of treatment you need, if any. Systolic pressure and diastolic pressure are measured in a unit called mm Hg. Normal Systolic pressure: below 120. Diastolic pressure: below 80. Elevated Systolic pressure: 120-129. Diastolic pressure: below 80. Hypertension stage 1 Systolic pressure: 130-139. Diastolic pressure: 80-89. Hypertension stage 2 Systolic pressure: 140 or above. Diastolic pressure: 90 or above. What health risks are associated with hypertension? Managing your hypertension is an important responsibility. Uncontrolled hypertension can lead to: A heart attack. A stroke. A weakened blood vessel (aneurysm). Heart failure. Kidney damage. Eye damage. Metabolic syndrome. Memory and concentration problems. What changes can I make to manage my hypertension? Hypertension can be managed by making lifestyle changes and possibly by taking medicines. Your health care provider will help you make a plan to bring your blood pressure within a normal range. Eating and drinking Eat a diet that is high in fiber and potassium, and low in salt (sodium), added sugar, and fat. An example eating plan is called the DASH (Dietary Approaches to Stop Hypertension) diet. To eat this way: ?Eat plenty of fresh fruits and vegetables. Try to fill half of your plate at each meal with fruitsand vegetables. ?Eat whole grains, such as whole wheat pasta, brown rice, or whole grain bread. Fill about one quarter of your plate with whole grains. ?Eat low-fat diary products. ?Avoid fatty cuts of meat, processed or cured meats, and poultry with skin. Fill about one quarter of your plate with lean proteins such as fish, chicken without skin, beans, eggs, and tofu. ?Avoid premade and processed foods. These tend to be higher in sodium, added sugar, and fat. Reduce your daily sodium intake. Most people with hypertension should eat less than 1,500 mg of sodium a day. Limit alcohol intake to no more than 1 drink a day for non women and 2 drinks a day for men. One drink equals 12 oz of beer, 5 oz of wine, or 1 oz of hard liquor. Lifestyle Work with your health care provider to maintain a healthy body weight, or to lose weight. Ask what an ideal weight is for you. Get at least 30 minutes of exercise that causes your heart to beat faster (aerobic exercise) most days of the week. Activities may include walking, swimming, or biking. Include exercise to strengthen your muscles (resistance exercise), such as weight lifting, as part of your weekly exercise routine. Try to do these types of exercises for 30 minutes at least 3 days aweek. Do not use any products that contain nicotine or tobacco, such as cigarettes and e-cigarettes. If you need help quitting, ask your health care provider. Control any long-term (chronic) conditions you have, such as high cholesterol or diabetes. Monitoring Monitor your blood pressure at home as told by your health care provider. Your personal target blood pressure may vary depending on your medical conditions, your age, and other factors. Have your blood pressure checked regularly, as often as told by your health care provider. Working with your health care provider Review all the medicines you take with your health care provider because there may be side effects or interactions. Talk with your health care provider about your diet, exercise habits, and other lifestyle factors that may be contributing to hypertension. Visit your health care provider regularly. Your health care provider can help you create and adjustyour plan for managing hypertension. Will I need medicine to control my blood pressure? Your health care provider may prescribe medicine if lifestyle changes are not enough to get your blood pressure under control, and if: Your systolic blood pressure is 130 or higher. Your diastolic blood pressure is 80 or higher. Take medicines only as told by your health care provider. Follow the directions carefully. Blood pressure medicines must be taken as prescribed. The medicine does not work as well when you skip doses. Skipping doses also puts you at risk for problems. Contact a health care provider if: You think you are having a reaction to medicines you have taken. You have repeated (recurrent) headaches. You feel dizzy. You have swelling in your ankles. You have trouble with your vision. Get help right away if: You develop a severe headache or confusion. You have unusual weakness or numbness, or you feel faint. You have severe pain in your chest or abdomen. You vomit repeatedly. You have trouble breathing. Summary Hypertension is when the force of blood pumping through your arteries is too strong. If this condition is not controlled, it may put you at risk for serious complications. Your personal target blood pressure may vary depending on your medical conditions, your age, and other factors. For most people, a normal blood pressure is less than 120/80. Hypertension is managed by lifestyle changes, medicines, or both. Lifestyle changes include weight loss, eating a healthy, low-sodium diet, exercising more, and limiting alcohol. This information is not intended to replace advice given to you by your health care provider. Make sure you discuss any questions you have with your health care provider. Document Released: 06/12/2013 Document Revised: 01/10/2020 Document Reviewed: 08/16/2017 [employer] Patient Education 2020 [employer] Follow Up Care 08/30/2022 09:05:25 With:GEOFF PINTO FAAFP, Jamison Campos, VARINDER, PED Address: [place] [address]- When:Within 3 Month(s) [facility] 08-24-2022 Hospital Discharge instructions Patient Education 05/25/2022 15:01:40 BMI for Adults BMI for Adults Body mass index (BMI) is a number that is calculated from a person's weight and height. BMI may help to estimate how much of a person's weight is composed of fat. BMI can help identify those who may be at higher risk for certain medical problems. How is BMI used with adults? BMI is used as a screening tool to identify possible weight problems. It is used to check whether aperson is obese, overweight, healthy weight, or underweight. How is BMI calculated? BMI measures your weight and compares it to your height. This can be done either in [place]ian ([place] or metric measurements. Note that charts are available to help you find your BMI quickly and easily without having to do these calculations yourself. To calculate your BMI in [place]ian [place] measurements, your health care provider will: 1.Measure your weight in pounds (lb). 2.Multiply the number of pounds by 703. For example, for a person who weighs 180 lb, multiply that number by 703, which equals [phone]. 3.Measure your height in inches (in). Then multiply that number by itself to get a measurement called inches squared. For example, for a person who is 70 in tall, the inches squared measurement is 70 in x 70 in, which equals 4900 inches squared. 4.Divide the total from Step 2 (number of lb x 703) by the total from Step 3 (inches squared): 126,540 4900 = 25.8. This is your BMI. To calculate your BMI in metric measurements, your health care provider will: 1.Measure your weight in kilograms (kg). 2.Measure your height in meters (m). Then multiply that number by itself to get a measurement called meters squared. For example, for a person who is 1.75 m tall, the meters squared measurement is 1.75 m x 1.75 m, which is equal to 3.1 meters squared. 3.Divide the number of kilograms (your weight) by the meters squared number. In this example: 70 3.1 = 22.6. This is your BMI. How is BMI interpreted? To interpret your results, your health care provider will use BMI charts to identify whether you are underweight, normal weight, overweight, or obese. The following guidelines will be used: Underweight: BMI less than 18.5. Normal weight: BMI between 18.5 and 24.9. Overweight: BMI between 25 and 29.9. Obese: BMI of 30 and above. Please note: Weight includes both fat and muscle, so someone with a muscular build, such as an athlete, may havea BMI that is higher than 24.9. In cases like these, BMI is not an accurate measure of body fat. To determine if excess body fat is the cause of a BMI of 25 or higher, further assessments may needto be done by a health care provider. BMI is usually interpreted in the same way for men and women. Why is BMI a useful tool? BMI is useful in two ways: Identifying a weight problem that may be related to a medical condition, or that may increase the risk for medical problems. Promoting lifestyle and diet changes in order to reach a healthy weight. Summary Body mass index (BMI) is a number that is calculated from a person's weight and height. BMI may help to estimate how much of a person's weight is composed of fat. BMI can help identify those who may be at higher risk for certain medical problems. BMI can be measured using Georgian measurements or metric measurements. To interpret your results, your health care provider will use BMI charts to identify whether you are underweight, normal weight, overweight, or obese. This information is not intended to replace advice given to you by your health care provider. Make sure you discuss any questions you have with your health care provider. Document Released: 05/30/2005 Document Revised: 08/31/2018 Document Reviewed: 08/01/2018 [employer] Patient Education 2020 [employer]. 05/25/2022 15:01:36 Chest Wall Pain Chest Wall Pain Chest wall pain is pain in or around the bones and muscles of your chest. Sometimes, an injury causes this pain. Excessive coughing or overuse of arm and chest muscles may also cause chest wall pain.Sometimes, the cause may not be known. This pain may take several weeks or longer to get better. Follow these instructions at home: Managing pain, stiffness, and swelling If directed, put ice on the painful area: ?Put ice in a plastic bag. ?Place a towel between your skin and the bag. ?Leave the ice on for 20 minutes, 2 3 times per day. Activity Rest as told by your health care provider. Avoid activities that cause pain. These include any activities that use your chest muscles or your abdominal and side muscles to lift heavy items. Ask your health care provider what activities are safe for you. General instructions Take beao-igz-fehqxcd and prescription medicines only as told by your health care provider. Do not use any products that contain nicotine or tobacco, such as cigarettes, e- cigarettes, and chewing tobacco. These can delay healing after injury. If you need help quitting, ask your health care provider. Keep all follow-up visits as told by your health care provider. This is important. Contact a health care provider if: You have a fever. Your chest pain becomes worse. You have new symptoms. Get help right away if: You have nausea or vomiting. You feel sweaty or light-headed. You have a cough with mucus from your lungs (sputum) or you cough up blood. You develop shortness of breath. These symptoms may represent a serious problem that is an emergency. Do not wait to see if the symptoms will go away. Get medical help right away. Call your local emergency services (911 in the [place] Do not drive yourself to the hospital. Summary Chest wall pain is pain in or around the bones and muscles of your chest. Depending on the cause, it may be treated with ice, rest, medicines, and avoiding activities that cause pain. Contact a health care provider if you have a fever, worsening chest pain, or new symptoms. Get help right away if you feel light-headed or you develop shortness of breath. These symptoms maybe an emergency. This information is not intended to replace advice given to you by your health care provider. Make sure you discuss any questions you have with your health care provider. Document Released: 09/18/2006 Document Revised: 03/21/2019 Document Reviewed: 03/21/2019 [employer] Patient Education 2020 [employer] Follow Up Care 05/24/2022 12:14:22 With:Martha Parson CNP Address: When: only if needed [facility] 08-15-2022 Evaluation + Plan noteExtracted from: Title:ED Note Author:Jocelyne Param Date:05/02 02/20 Chest wall pain (R07.89: Oth er chest pain) Orders: lidocaine topical, 1 patch(es), Topical, Daily, 7 patch(es), Refill(s) 0, apply 12 hours on and 12 hours off daily, [employer], 178, cm, 05/16/22 9:37:00 EDT, Height/Length Dosing, 83.9, kg, 05/16/22 9:37:00 EDT, Weight Dosing Automated Diff Basic Metabolic Panel CBC w/ Auto Diff ECG 12 Lead Adult ED Cardiac Monitoring eGFR Hepatic Function Panel Lipase Level Oxygen Saturation Oxygen Therapy PT & PTT Saline Lock Insert Troponin 0 Hr. Troponin 3 Hr. Troponin 6 Hr. Troponin 9 Hr. XR Ribs Unilat 3 Views Left w/ PA Chest Future Appointments Appointment Date:07/22/2022 12:00:00 PM Scheduled Provider:Jamison TELLEZ DO, FAAFP Location:[facility] Appointment Type: Open Future Scheduled Tests Laboratory* Sedimentation Rate Automated 07/18/21 * PSA Total 06/02/21 * C-Reactive Protein 07/18/21 * Uric Acid 07/18/[address] [facility]08[facility]2022 Hospital Discharge instructions Follow Up Care 05/16/2022 09:33:11 With:Jamison TELLEZ Address: [address] [place], [place] [address]shira [address]onson, [facility] [place] [address]- Business (1) When:Within 3 Day(s) [facility]04-20-2022 Hospital Discharge instructions Follow Up Care 01/19/2022 09:12:53 With:Jose Corley DO, FAM, PED Address: [address], [place] [address] [phone] When:1 month only if needed Comments:resume flonaseother treatments we discusseddecrease amlodipine to 2.5mgresume tamsulosin dailyf/u 1month or PRN [facility] 04-07-2022 Hospital Discharge instructions Patient Education 01/06/2022 14:26:05 Wrist Pain, Adult, Jkxg-lx-Hyzj Wrist Pain, Adult There are many things that can cause wrist pain. Some common causes include: An injury to the wrist area. Overuse of the joint. A condition that causes too much pressure to be put on a nerve in the wrist (carpal tunnel syndrome). Wear and tear of the joints that happens as a person gets older (osteoarthritis). Other types of arthritis. Sometimes, the cause of wrist pain is not known. Often, the pain goes away when you follow your doctor s instructions for helping pain at home, such as resting or icing your wrist. If your wrist paindoes not go away, it is important to tell your doctor. Follow these instructions at home: Rest the wrist area for 48 hours or more, or as long as told by your doctor. If a splint or elastic bandage has been put on your wrist, use it as told by your doctor. ?Take off the splint or bandage only as told by your doctor. ?Loosen the splint or bandage if your fingers tingle, lose feeling (get numb), or turn cold or blue. If directed, apply ice to the injured area: ?If you have a removable splint or elastic bandage, remove it as told by your doctor. ?Put ice in a plastic bag. ?Place a towel between your skin and the bag or between your splint or bandage and the bag. ?Leave the ice on for 20 minutes, 2 3 times a day. Keep your arm raised (elevated) above the level of your heart while you are sitting or lying down. Take zkui-lir-aigwlxg and prescription medicines only as told by your doctor. Keep all follow-up visits as told by your doctor. This is important. Contact a doctor if: You have a sudden sharp pain in the wrist, hand, or arm that is different or new. The swelling or bruising on your wrist or hand gets worse. Your skin becomes red, gets a rash, or has open sores. Your pain does not get better or it gets worse. Get help right away if: You lose feeling in your fingers or hand. Your fingers turn white, very red, or cold and blue. You cannot move your fingers. You have a fever or chills. This information is not intended to replace advice given to you by your health care provider. Make sure you discuss any questions you have with your health care provider. Document Released: 03/06/2009 Document Revised: 08/31/2018 Document Reviewed: 04/06/2017 [employer] Patient Education 2020 [employer]. Follow Up Care 09/23/2021 13:18:39 With:Jamison TELLEZ DO, FAAFP, FAM, PED Address: [place] [address]- When:Within 3 Month(s) [facility] Evaluation + Plan note Future Appointments Appointment Date:01/06/2022 01:40:00 PM Scheduled Provider:Jamison TELLEZ DO, FAAFP Location:[facility] Appointment Type: Open Future Scheduled Tests Laboratory* Sedimentation Rate Automated 07/18/21 * PSA Total 06/02/21 * C-Reactive Protein 07/18/21 * Uric Acid [facility]/18/[address] [facility] [address] Future Appointments Appointment Date:04/11/2022 01:20:00 PM Scheduled Provider:Jamison TELLEZ DO, FAAFP Location:[facility] Appointment Type:FM Open Future Scheduled Tests Laboratory* Sedimentation Rate Automated 07/18/21 * PSA Total 06/02/21 * C-Reactive Protein 07/18/21 * Uric Acid 07/18/21 [facility] Evaluation + Plan note Future Appointments Appointment Date:07/22/2022 12:00:00 PM Scheduled Provider:Jamison TELLEZ DO, FAAFP Location:[facility] Appointment Type:FM Open Future Scheduled Tests Laboratory* Sedimentation Rate Automated 07/18/21 * PSA Total 06/02/21 * C-Reactive Protein 07/18/21 * Uric Acid 07/18/21 [facility] evaluation + Plan note Future Appointments Appointment Date:07/22/2022 12:00:00 PM Scheduled Provider:Jamison TELLEZ DO, FAAFP Location:[facility] Appointment Type:FM Open Future Scheduled Tests Laboratory* Sedimentation Rate Automated 07/18/21 * C-Reactive Protein 07/18/21 * Uric Acid 07/18/21 [facility] evaluation + Plan note Future Appointments Appointment Date:01/05/2023 02:20:00 PM Scheduled Provider:Jamison TELLEZ DO, FAAFP Location:[facility] Appointment Type:[facility] evaluation + Plan note Future Appointments Appointment Date:11/03/2022 01:40:00 PM Scheduled Provider:Jamison TELLEZ DO, FAAFP Location:[facility] Appointment Type:FM Same Day Appointment Date:01/16/2023 02:20:00 PM Scheduled Provider:Jamison TELLEZ DO, FAAFP Location:[facility] Appointment Type:[facility] evaluation + Plan note Future Appointments Appointment Date:11/24/2022 02:00:00 PM Scheduled Provider: Location:[facility] [place] Appointment Type:PT Traction Second ([place]) Appointment Date:11/25/2022 02:00:00 PM Scheduled Provider: Location[place] [place] Appointment Type:PT Traction Second (FT) Appointment Date:11/28/2022 03:00:00 PM Scheduled Provider: Location:[facility] [place] Appointment Type:PT Traction Second (FT) Appointment Date:12/01/2022 01:00:00 PM Scheduled Provider: Location[place] [place] Appointment Type:PT Traction Second (FT) Appointment Date:12/02/2022 02:00:00 PM Scheduled Provider: [facility] [place] [facility] Type:PT Re-Eval 30 (FT) Appointment Date:01/16/2023 02:20:00 PM Scheduled Provider:Jamison TELLEZ DO, FAAFP Location:[facility] Appointment Type:[facility] Evaluation + Plan note Future Appointments Appointment Date:12/02/2022 02:00:00 PM Scheduled Provider: [facility] [place] [facility] Type:PT Re-Eval 30 (FT) Appointment Date:12/08/2022 08:15:00 AM Scheduled Provider:Param Zuniga MD [facility] Type:WC Follow Up Visit (FT) Appointment Date:01/16/2023 02:20:00 PM Scheduled Provider:Jamison TELLEZ DO, FAAFP Location[facility] Future Appointments Appointment Date:01/16/2023 02:20:00 PM Scheduled Provider:Jamison TELLEZ DO, FAAFP Location:[facility] Future Appointments Appointment Date:02/21/2023 01:00:00 PM Scheduled Provider:Jamison TELLEZ DO, FAAFP Location:[facility] Appointment Type:[facility] evaluation + Plan note Future Appointments Appointment Date:12/29/2022 10:45:00 AM Scheduled Provider:Param Zuniga MD [facility] Appointment Type:WC Follow Up Visit (FT) Appointment Date:02/21/2023 01:00:00 PM Scheduled Provider:Jamison TELLEZ DO, FAAFP Location:[facility] Future Appointments Appointment Date:05/18/2023 02:00:00 PM Scheduled Provider: Location:[facility] Appointment Type: Medicare Wellness Subsequent Appointment Date:06/19/2023 01:20:00 PM Scheduled Provider:Jamison TELLEZ DO, FAAFP [facility] Type: Open Future Scheduled Tests Laboratory* Thyroid Stimulating Hormone 03/07/23 * Free T4 03/07/23 [facility] evaluation + Plan note Future Appointments Appointment Date:04/06/2023 10:20:00 AM Scheduled Provider:Jamison TELELZ DO, FAAFP Location:[facility] Appointment Type: Hospital Follow Up w/TCM Appointment Date:05/18/2023 02:00:00 PM Scheduled Provider: Location:[facility] Appointment Type: Medicare Wellness Subsequent Appointment Date:06/19/2023 01:20:00 PM Scheduled Provider:Jamison TELLEZ DO, FAAFP Location:[facility] Appointment Type: Open Future Scheduled Tests Laboratory* Thyroid Stimulating Hormone 03/07/23 * Free T4 03/07/23 [facility] evaluation + Plan note Future Appointments Appointment Date:05/17/2023 01:00:00 PM Scheduled Provider: Location:[facility] Appointment Type:Pharmacy Medication Education Appointment Date:05/18/2023 02:00:00 PM Scheduled Provider: Location:[facility] Appointment Type: Medicare Wellness Subsequent Appointment Date:06/19/2023 01:20:00 PM Scheduled Provider:Jamison TELLEZ DO, FAAFP [facility] Type: Open Future Scheduled Tests Laboratory* Thyroid Stimulating Hormone 03/07/23 * Free T4 03/07/23 [facility] evaluation + Plan note Future Appointments Appointment Date:06/19/2023 01:20:00 PM Scheduled Provider:Jamison TELLEZ DO, FAAFP Location:[facility] Appointment Type:FM Open Appointment Date:07/12/2023 02:30:00 PM Scheduled Provider: [facility] App[facility] Type: Medicare Wellness Subsequent Future Scheduled Tests Laboratory* Thyroid Stimulating Hormone 03/07/23 * Free T4 03/07/23 [facility] evaluation + Plan note Future Appointments Appointment Date:07/12/2023 02:30:00 PM Scheduled Provider: Location:[facility] Appointment Type: Medicare Wellness Subsequent Appointment Date:09/18/2023 01:20:00 PM Scheduled Provider:Jamison TELLEZ DO, FAAFP Location:[facility] Appointment Type: Open Future Scheduled Tests Laboratory* Thyroid Stimulating Hormone 6/6/23 * Free T4 6/6/23 [facility] evaluation + Plan note Future Appointments Appointment Date:09/18/2023 01:20:00 PM Scheduled Provider:Jamison TELLEZ DO, FAAFP Location:[facility] Appointment Type: Open Appointment Date:07/15/2024 02:30:00 PM Scheduled Provider: Location:[facility] Appointment Type: Medicare Wellness Subsequent Future Scheduled Tests Laboratory* Thyroid Stimulating Hormone 623 * Free T4 6/623 [facility] evaluation + Plan note Future Appointments Appointment Date:12/19/2023 01:20:00 PM Scheduled Provider:Jamison TELLEZ DO, FAAFP Location:[facility] Appointment Type: Open Appointment Date:07/15/2024 02:30:00 PM Scheduled Provider: Location:[facility] Appointment Type: Medicare Wellness Subsequent Future Scheduled Tests Laboratory* Thyroid Stimulating Hormone 03/07/23 * Free T4 6/623 [facility] evaluation + Plan note Future Appointments Appointment Date:10/31/2023 01:00:00 PM Scheduled Provider: Location:[facility] [place] Appointment Type:PT Re-Eval 45 (FT) Appointment Date:12/19/2023 01:20:00 PM Scheduled Provider:Jamison TELLEZ DO, FAAFP Location:[facility] Appointment Type: Open Appointment Date:07/15/2024 02:30:00 PM Scheduled Provider: Location:[facility] Appointment Type: Medicare Wellness Subsequent Future Scheduled Tests Laboratory* Thyroid Stimulating Hormone 6623 * Free T4 6/6/23 [facility] evaluation + Plan note Future Appointments Appointment Date:03/26/2024 01:00:00 PM Scheduled Provider:Jamison TELLEZ DO, FAAFP [facility] App[facility] Type:FM Open Appointment Date:07/15/2024 02:30:00 PM Scheduled Provider: Location:[facility] Appointment Type:FM Medicare Wellness Subsequent Future Scheduled Tests Laboratory* Thyroid Stimulating Hormone 03/07/23 * Free T4 03/07/23 [facility] evaluation + Plan note Future Appointments Appointment Date:03/12/2024 02:00:00 PM Scheduled Provider: Location:[facility] Appointment Type:Chronic Care Dietary Appointment Date:03/26/2024 01:00:00 PM Scheduled Provider:Jamison TELLEZ DO, FAAFP Location:[facility] Appointment Type:FM Open Appointment Date:07/15/2024 02:30:00 PM Scheduled Provider: Location:[facility] Appointment Type:FM Medicare Wellness Subsequent Future Scheduled Tests Laboratory* Thyroid Stimulating Hormone 03/07/23 * Free T4 03/07/23 [facility] evaluation + Plan note Future Appointments Appointment Date:07/15/2024 02:30:00 PM Scheduled Provider: [facility] App[facility] Type:FM Medicare Wellness Subsequent Appointment Date:07/15/2024 02:40:00 PM Scheduled Provider:Jamiosn TELLEZ DO, FAAFP Location:[facility] Appointment Type:FM Open [facility] evaluation + Plan note Future Appointments Appointment Date:10/17/2024 03:20:00 PM Scheduled Provider:Jamison TELLEZ DO, FAAFP [facility] Appointment Type:FM Open Appointment Date:07/15/2025 01:00:00 PM Scheduled Provider: [facility] App[facility] Type:FM Medicare Wellness Subsequent [facility] evaluation note* Diagnosis Atrial fibrillation, unspecified type (HCC)- [facility] Diagnosis Idiopathic progressive polyneuropathy- Primary Onychomycosis Dermatophytosis of nail [facility] Diagnosis Skin tear of left lower leg without complication, subsequent encounter- Primary [facility]* Diagnosis Essential hypertension, benign- Primary Paroxysmal atrial fibrillation (Multi) Atrial fibrillation Anticoagulated Encounter for long-term (current) use of anticoagulants Never smoked cigarettes documented in this encounter [facility] Work Phone: Evaluation note* Diagnosis Left shoulder pain, unspecified chronicity- Primary [facility]* Diagnosis Ulcer of left lower extremity with fat layer exposed (CMS/HCC)- Primary Idiopathic progressive polyneuropathy Onychomycosis Dermatophytosis of nail Infection of anterior lower leg Unspecified local infection of skin and subcutaneous tissue Pain of left lower extremity [facility] illness NarrativePatient returns for follow-up of problems as noted. He is seen in follow-up after emergency room visit. He went there with concerns about elevated blood pressure and I was called. I instructed them to add amlodipine 5 mg a day and today his blood pressure appears to be acceptable. He had numerous complaints concerns and a lot of anxiety revolving around his blood pressure management he was educated extensively regarding the reason and rationale for the care rendered. Additionally he was concerned about coronary disease and pointed out to him and his that he was thoroughly evaluated several years ago with no findings and because of this it is doubtful that he has coronary disease now. The patient denies any breakthrough SVT or atrial fibrillation and I cannot elicit complaints of palpitation. 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 * Patient returns in follow-up of problems as noted. He is doing well. I cannot elicit any angina CHFor arrhythmia symptomatology. He has had no paroxysms of atrial fibrillation or SVT. We discussed antithrombotic therapy but he is reluctant to take it. His recently had a spontaneous intracranial bleed on antithrombotics and because of this she wishes to go without it. That is understandable.Advised him that there are risks either way. * He was educated regarding other signs and symptoms of heart disease to watch for. He has none. We discussed briefly the merits of a modest diet and weight loss. [facility] 600 DO Work Phone: History of Present illness Narrative* Patient returns in follow-up of recent hospitalization. He presented with atrial fibrillation and because of this we intensified his therapy by adding anticoagulant therapy and also increasing flecainide. He is now adequately anticoagulated. He did not convert spontaneously because of this I recommend proceeding to direct- current cardioversion. The reason and rationale for doing so was explained in detail and he understands and agrees to the plan. * Review of his records demonstrates that his hypertension is adequately controlled. I did, though, advocate diet and weight loss. [facility] 250 DO Work Phone: History of Present illness Narrative* The patient states he has been generally doing well since the last visit. Comorbid Illnesses: hypertension. * Symptoms: stable chest pain at rest, denies exertional chest pain, denies dyspnea, stable fatigue, denies exercise intolerance, denies palpitations, denies edema, denies orthopnea, denies dizziness and denies orthostatic dizziness. * Associated symptoms: no syncope. * His symptoms do not limit his activities. * Disease Monitoring: The patient has had a stable weight. * Medications: the patient is adherent with his medication regimen. He denies medication side effects. [facility] 600 DO Work Phone: History of Present illness NarrativeReturns in follow- up of problems as noted. He is done well. When last seen by nurse practitioner hehad complaints suggestive of coronary disease and because of this a stress test was ordered. It proved normal and because of this the likelihood of coronary disease appears to be very low. He has hadno recurrent SVT symptomatology and his atrial fibrillation appears to be well-tolerated without any syncope or near syncope palpitation or other complaints. Blood pressure and lipids appear to be adequately managed and he is tolerating anticoagulant therapy well without complaint. As before we didadvocate the merits of diet and weight loss.[facility] 600 DO Work Phone: Hospital course Narrative No data available for this section [facility] No data available for this section [facility] [facility] No data available for this section [facility] Summary Purpose Family History No Family History Records FoundUnknown Family Member Name Dates Details Family history of arterioscl erotic cardiovascular disease: Mother, Father, Sister, Brother(V17.49, Z82.49) Status:Active Unknown Family Member Name Dates Details Family history of arterioscl erotic cardiovascular disease: Mother, Father, Sister, Brother(V17.49, Z82.49) Status:Active Unknown Family Member Name Dates Details Family history of arterioscl erotic cardiovascular disease: Mother, Father, Sister, Brother(V17.49, Z82.49) Status:Active Unknown Family Member Name Dates Details Family history of arterioscl erotic cardiovascular disease: Mother, Father, Sister, Brother(V17.49, Z82.49) Status:Active Unknown Family Member Name Dates Details Family history of arterioscl erotic cardiovascular disease: Mother, Father, Sister, Brother(V17.49, Z82.49) Status:Active Unknown Family Member Name Dates Details Family history of arterioscl erotic cardiovascular disease: Mother, Father, Sister, Brother(V17.49, Z82.49) Status:Active Unknown Family Member Name Dates Details Family history of arterioscl erotic cardiovascular disease: Mother, Father, Sister, Brother(V17.49, Z82.49) Status:Active Unknown Family Member Name Dates Details Family history of arterioscl erotic cardiovascular disease: Mother, Father, Sister, Brother(V17.49, Z82.49) Status:Active Unknown Family Member Name Dates Details Family history of arterioscl erotic cardiovascular disease: Mother, Father, Sister, Brother(V17.49, Z82.49) Status:Active Unknown Family Member Name Dates Details Family history of arterioscl erotic cardiovascular disease: Mother, Father, Sister, Brother(V17.49, Z82.49) Status:Active Unknown Family Member Name Dates Details Family history of arterioscl erotic cardiovascular disease: Mother, Father, Sister, Brother(V17.49, Z82.49) Status:Active Unknown Family Member Name Dates Details Family history of arterioscl erotic cardiovascular disease: Mother, Father, Sister, Brother(V17.49, Z82.49) Status:Active Unknown Family Member Name Dates Details Family history of arterioscl erotic cardiovascular disease: Mother, Father, Sister, Brother(V17.49, Z82.49) Status:Active Unknown Family Member Name Dates Details Family history of arterioscl erotic cardiovascular disease: Mother, Father, Sister, Brother(V17.49, Z82.49) Status:Active Unknown Family Member Name Dates Details Family history of arterioscl erotic cardiovascular disease: Mother, Father, Sister, Brother(V17.49, Z82.49) Status:Active Unknown Family Member Name Dates Details Family history of arterioscl erotic cardiovascular disease: Mother, Father, Sister, Brother(V17.49, Z82.49) Status:Active Unknown Family Member Name Dates Details Family history of arterioscl erotic cardiovascular disease: Mother, Father, Sister, Brother(V17.49, Z82.49) Status:Active Advance Directives No Advanced Directives Records FoundNo Advanced Directives Records FoundNo Advanced Directives Records FoundNo Advanced Directives Records FoundNo Advanced Directives Records FoundNo Advanced Directives Records FoundNo Advanced Directives Records FoundNo Advanced Directives Records FoundNo Advanced Directives Records FoundNo Advanced Directives Records FoundNo Advanced Directives Records FoundNo Advanced Directives Records Found Chief Complaint JOSE ROCHA is being seen for follow-up of a hospitalization for.JOSE ROCHA is being seen for an annual follow-up of.JOSE ROCHA is being seen for a month follow-up of f/u 2 week [facility] 02/25.* Hospital f/u: 'doing good' * JOSE ROCHA is being seen for follow-up of a hospitalization for syncope. * He presents to the office ambulatory with steady gait. Last evaluated in clinic Dr. Alcaraz March 2023. At that time dose of flecainide was increased to 150 mg twice daily. * March 30, 2023 uneventful cardioversion with muslim of normal sinus rhythm. * March 31, 2023 presented to [facility] due to syncopal episode. Seen in consultation by Dr. Turner. Echocardiogram was unremarkable. Dose of flecainide reduced to 50 mg twice daily. * Patient reports that he does not remember the syncopal episode. reports that he was going to bed and she simply heard a thud . The patient says he has no memory of the event, the ambulance rideor the night in the hospital - reports he simply woke up at 11 AM and had no idea what had happened. * Presents today where he simply feels a little tired . Denies any dizziness or lightheadedness. 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 He symptoms reports a little pain beneath his left breast but is not clearly exertional in nature. He denies any pa lpitations. No orthopnea or PND. * EKG in office sinus rhythm at 66 with PVC, first-degree AV block. QRS 100. * 1993 cardiac cath with angiographically normal coronaries. * March 2023 echo LVEF 60 to 65%, left atrium mildly dilated, MR mild. * [facility]ADS VASc 3 full dose Eliquis age 82, creatinine 0.7, weight 185 * [facility] [employer] was recommended at discharge and will arrange. * Otherwise, due to PVCs, atypical chest pain and high risk med use will complete Lexiscan perfusion study. * He will follow-up with Dr. Alcaraz after testing. JOSE JOSEFINA is being seen for Follow up testing.JOSE JOSEFINA is being seen for Follow up testing. Reason for Referral Specialty Diagnoses / Procedures Referred By Shakila rao Referred To Contact Diagnoses Paroxysmal atrial fibrillation (Multi) Procedures ECG 12 Lead Atilio Evans MD [address] [place], [place] [address], [address] [address] Referral ID Status Reason Start Date Expiration Date V isits Requested Visits Authorized [id number] Authorized 02/06/2024 02/05/2025 1 1 Specialty Diagnoses / Procedures Referred By Shakila rao Referred To Contact Cardiology Diagnoses Essential hypertension, benign Procedures Follow Up In Cardiology Atilio Evans MD [address] [place] [address] 2, [address] [address] Atilio Evans MD [address] [place] [address] 2, [address] [address] Referral ID Status Reason Start Date Expiration Date V isits Requested Visits Authorized [id number] Authorized 02/06/2024 02/05/2025 1 1 Additional Source Comments (unrecognized sect ion and content) No Status Records FoundNo Status Records FoundNo Status Records FoundNo Status Records FoundNo Status Records FoundNo Status Records FoundNo Status Records FoundNo Status Records FoundNo Status Records FoundNo Status Records FoundNo Status Records FoundNo Status Records Found INFORMATION SOURCE (unrecogn ized section and content) DATE CREATED AUTHOR 12/21/2018 [facility] DATE CREATED AUTHOR AUTHOR'S ORGANIZ ATION 10/16/2022 [facility] dical Specialist DATE CREATED AUTHOR AUTHOR'S ORGANIZ ATION 03/12/2023 [facility] DATE CREATED AUTHOR AUTHOR'S ORGANIZ ATION 05/05/2023 [facility] DATE CREATED AUTHOR AUTHOR'S ORGANIZ ATION 07/07/2023 [facility] DATE CREATED AUTHOR AUTHOR'S ORGANIZ ATION 07/16/2023 [facility] DATE CREATED AUTHOR AUTHOR'S ORGANIZ ATION 02/07/2024 [facility] DATE CREATED AUTHOR AUTHOR'S ORGANIZ ATION 07/15/2024 [facility] dical Specialists EPIC DATE CREATED AUTHOR AUTHOR'S ORGANIZ ATION 08/09/2024 [facility] DATE CREATED AUTHOR AUTHOR'S ORGANIZ ATION 08/11/2024 [facility] Center DATE CREATED AUTHOR AUTHOR'S ORGANIZ ATION 08/14/2024 [facility] Care Team (unrecognized sect ion and content) Increment Manager Relationship Specialty Start Date End Date Jamison Tellez MD [address] [place] [address] PCP - General Family Medicine 04/12/23 Increment Manager Relationship Specialty Start Date End Date Jamison Tellez MD [address] [place] [address] PCP - General Family Medicine 04/12/23 Increment Manager Relationship Specialty Start Date End Date Jamison Tellez MD [address] [place] [address] PCP - General Family Medicine 04/12/23 Increment Manager Relationship Specialty Start Date End Date Jamison Tellez DO [address] [facility] [address] [place] [address] PCP - General 10/02/17 Increment Manager Relationship Specialty Start Date End Date Jamison Tellez MD [address] [place] [address] PCP - [facility] Medicine 04/12/23 Increment Manager Relationship Specialty Start Date End Date Jamison Tellez MD [address] [place] [address] PCP - General Family Medicine 04/12/23 Increment Manager Relationship Specialty Start Date End Date Jamison Tellez MD [address] [place] [address] PCP - General Family Medicine 04/12/23 Reason for Visit (unrecogniz ed section and content) Reason Comments Weak Reason Comments Toenail Care Toenail care Reason Comments Follow-up Reason Comments Follow-up 7mo Specialty Diagnoses / Procedures Referred By Contac t Referred To Contact Diagnoses Paroxysmal atrial fibrillation (Multi) Procedures ECG 12 Lead Atilio Evans MD [address] [address], [address] [address] Referral ID Status Reason Start Date Expiration Date V isits Requested Visits Authorized [id number] Authorized 02/06/2024 02/05/2025 1 1 Reason Comments Osteoarthritis Reason Comments Toenail Care FOR RECORDS PERTAINING TO PATIENTS WHO ARE OR HAVE BEEN ENROLLED IN A CHEMICAL DEPENDENCY/SUBSTANCEABUSE PROGRAM, SOME INFORMATION MAY BE OMITTED. This clinical summary was aggregated from multiple sources. Caution should be exercised in using it in the provision of clinical care. This summary normalizes information from multiple sources, and as a consequence, information in this document may materially change the coding, format and clinical context of patient data. In addition, data may be omitted in some cases. CLINICAL DECISIONS SHOULD BE BASED ON THE PRIMARY CLINICAL RECORDS. [facility] provides no warranty or guarantee of the accuracy or completeness of information in this document.
== END 2024-09-19 10:55 | disposition home or self-care (01) ==
LOC: VC 10:11
PROVIDERS: Family Provider Family Medicine; PCP Radiology Diagnostic Radiology; Visit Provider Radiology Diagnostic Radiology
DX: I83.813 Varicose veins of bilateral lower extremities with pain (principal)
CPT/HCPCS: 36466

== ENCOUNTER 2024-09-23 12:31 | Outpatient (OUT) | payer MEDICARE, OTHER, SELFPAY ==
[2024-09-23 08:17] VITALS: BMI 26.6
--- NOTE | 2024-09-23 08:17 | VEINCLINIC_ITS ---
Vital Signs 09/23/24 08:17 Height 5 ft 10 in Weight 84 kg BMI 26.6 Varicose Veins Patient in today for follow up ultrasound of left lower extremity following treatment of Varithena/microfoam completed on 09/19/24. Ton Martin MD personally performed the services described in this documentation, as scribed by Ailyn Mancia RDMS in my presence and it is both accurate and complete. Ailyn Martin RDMS am scribing for, and in the presence of, Dr. Ton Toledo and in the presence of the patient. calf: left aching, intermittent and tender 1 2-3 months Worsened in recent months: Yes walking elevating extremities Reports erythema, limb pain, leg edema and other (numbness/tingling) History of lower extremity trauma: Yes (injury to left lower leg 2-3 months ago) Superficial thrombophlebitis: No Family history of varicose veins: unknown Has patient had previous lower extremity venous surgery: No Patient has previously received the following treatment(s) for lower extremity varicose veins: Reports none Does patient have a history of : not applicable Does patient intend to have future pregnancies: not applicable Has patient had lower extremity venous scan with relux testing: Yes Support hose used: Yes (20 yrs ago) Problems walking or doing physical activity: Yes How does it affect you: Difficult doing daily activities, standing for long periods of time Do you walk much: No Do you stand much: No Medication compliance: fair Review of Systems ROS Narrative Ton Martin MD personally performed the services described in this documentation, as scribed by Ailyn Mancia RDMS in my presence and it is both accurate and complete. Ailyn Martin RDMS, am scribing for, and in the presence of, Dr. Ton Toledo and in the presence of the patient. Status of ROS 10 or more systems reviewed and unremark able except as noted in history and below Cardiovascular Reports: edema Integumentary/Breast Reports: redness, skin pain, skin tenderness, skin swelling, non-healing lesion (mid medial left lower leg) and changes in skin color Neurological Reports: numbness in extremities and weakness in extremities Hematologic/Lymphatic Reports: easy bruising and easy bleeding PFSH PFS Medical History (Updated 09/11/24 @ 15:22 by Yaya Melgoza) Phlebitis of superficial vein of right lower extremity ?I80.01 - Phlebitis and thrombophlebitis of superficial vessels of right lower extremity (ICD-10) Phlebitis and thrombophlebitis of superficial vessels of left lower extremity ?I80.02 - Phlebitis and thrombophlebitis of superficial vessels of left lower extremity (ICD-10) 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 ?I83.813 - Varicose veins of bilateral lower extremities with pain (ICD-10) Heart disease ?I51.9 - Heart disease, unspecified (ICD-10) Carpal tunnel syndrome ?G56.00 - Carpal tunnel syndrome, unspecified upper limb (ICD-10) Surgical History (Updated 09/11/24 @ 14:37 by Yaya Melgoza) Status post laser ablation of incompetent vein ?Z98.890 - Other specified postprocedural states (ICD-10) History of carpal tunnel surgery ?Z98.890 - Other specified postprocedural states (ICD-10) Family History (Updated 08/15/24 @ 13:25 by Yaya Melgoza) Father Family history of myocardial infarction Brother Family history of myocardial infarction Social History (Updated 08/15/24 @ 13:25 by Yaya Melgoza) Within the past year, how often did you have a drink containing alcohol: never Score interpretation: A score less than 4 is consistent with normal alcohol consumption. Smoking status: Never smoker Meds Home Medications and Allergies Home Medications ?Medication ?Instructions ?Recorded ?Confirmed ?Type apixaban 5 mg PO BID 08/15/24 08/15/24 History atorvastatin 20 mg tablet (Lipitor) 20 mg PO DAILY 08/15/24 08/15/24 History blood pressure medication 08/15/24 History flecainide 50 mg tablet 50 mg PO Q12H 08/15/24 08/15/24 History cephalexin 500 mg capsule 500 mg PO BID 09/23/24 09/23/24 History Allergies Allergy/AdvReac Type Severity Reaction Status Date / Time No Known Drug Allergies Allergy Verified 08/15/24 13:28 Exam Narrative Exam Narrative: Redness and swelling noted in left lower leg. ITon MD personally performed the services described in this documentation, as scribed by Ailyn Mancia RDMS in my presence and it is both accurate and complete. IAilyn RDMS, am scribing for, and in the presence of, Dr. Ton Toledo and in the presence of the patient. Constitutional Documenting provider has reviewed patient's vital signs: yes Common normals: oriented x3 Nutritional appearance: overweight Lymph Lymphatic: no lymphedema noted Cardio Peripheral pulses: posterior tibial pulses present and dorsalis pedis pulses present Extremity Common normals: normal capillary refill General: calf tenderness and edema Right lower extremity: lower leg Right lower leg: inspection and palpation Left lower extremity: lower leg (wound mid/medial lower leg ) Left lower leg: inspection and palpation Neuro Common normals: oriented x3 Results Imaging Venous US: Radiologist's impression: 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 Ton Martin MD personally performed the services described in this documentation, as scribed by Ailyn Mancia RDMS in my presence and it is both accurate and complete. Ailyn Martin RDMS am scribing for, and in the presence of, Dr. Ton Toledo and in the presence of the patient. Assessment and Plan Assessment and Plan (1) Phlebitis and thrombophlebitis of superficial vessels of left lower extremity: Plan Plan is for patient to start on Keflex 500mg BID for 14 days and to return for Varithena/microfoam of right leg on 10/03/24. Ton Martin MD personally performed the services described in this documentation, as scribed by Ailyn Mancia RDMS in my presence and it is both accurate and complete. Ailyn Martin RDMS am scribing for, and in the presence of, Dr. Ton Toledo and in the presence of the patient.
--- NOTE | 2024-09-23 10:15 | P.DS_ITS ---
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
--- NOTE | 2024-09-23 12:32 | VEIN_ITS ---
Patient Name: JOSE ROCHA MR#: [id number] : 1940 Exam Date: 09/23/2024 Ordering Doctor: DR TON TOLEDO M.D. RADIOLOGY REPORT PROCEDURE: [facility] EST [facility] - OFFICE VISIT FOLLOW UP COMPARISON: [facility] EST LMT[facility], 09/16/2024. [facility] EST LMT[facility], 09/03/2024. PROGRESS NOTES: The patient reports some increased redness of the left leg following micro foam chemical ablation. The patient has not required oral analgesics for the patient has exercise and worn his compression stocking. Physical exam demonstrates complete resolution of the initial presenting venous stasis ulceration. There is some mild subcutaneous swelling erythema and warmth below the patient's left knee involving the lower leg and ankle. The differential diagnosis would include postprocedural thrombophlebitis with cellulitis considered less likely. Review of the ultrasound performed the same day demonstrates occlusive thrombus extending throughout the treated left leg varicose veins. No deep vein thrombus. Single residual incompetent left leg varicose vein measuring 3 mm. Multiple right leg income varicose veins. The patient expressed a desire to proceed with treatment of incompetent right leg varicose veins. VEIN/[facility] EST TD IMPRESSION: 1. Successful ablation of treated left leg varicose veins 2. Persistent incompetent right leg varicose veins 3. Left leg postprocedural thrombophlebitis versus cellulitis PLAN: Keflex 500 milligrams b.i.d. For 14 days, the patient was instructed to call our office for any changes Micro foam chemical ablation right leg incompetent varicose veins Nurse notes, history and physical were reviewed and confirmed, see attached forms. The nurse was present throughout the physical exam and consultation Dictated by: Ton Toledo MD on 09/23/2024 at 13:09 Approved by: Ton Toledo MD on 09/23/2024 at 13:11
--- NOTE | 2024-09-23 12:32 | VEIN_ITS ---
Patient Name: JOSE ROCHA MR#: [id number] : 1940 Exam Date: 09/23/2024 Ordering Doctor: DR TON TOLEDO M.D. RADIOLOGY REPORT PROCEDURE: VC EXT VENOUS LT LIMITED COMPARISON: VC EXT VENOUS LT LIMITED, 09/03/2024. INDICATIONS: I80.02 - Phlebitis and thrombophlebitis of superficial veins in left leg TECHNIQUE: Lower extremity cui scale and Duplex Doppler evaluation of the deep venous system from the inguinal ligament through the calf veins. FINDINGS: REGION: Left lower extremity. THROMBI: Negative for DVT. 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 COMPRESSIBILITY: Non-compressible segments corresponding to thrombus FLOW: Areas of no flow corresponding to thrombus OTHER: Varicose vein proximal medial lower leg measures 3.0 mm. CONCLUSION: Post ablation occlusion of treated left leg incompetent varicose veins with a single residual incompetent varicose vein measuring 3 mm in diameter Dictated by: Ton Toledo MD on 09/23/2024 at 13:00 Approved by: Ton Toledo MD on 09/23/2024 at 13:01
== END 2024-09-23 13:47 | disposition home or self-care (01) ==
LOC: VC 12:32
PROVIDERS: Family Provider Family Medicine; PCP Radiology Diagnostic Radiology; Visit Provider Radiology Diagnostic Radiology
DX: I80.02 Phlebitis and thrombophlebitis of superficial vessels of left lower extremity (principal)
CPT/HCPCS: 93971; G0463

== ENCOUNTER 2024-10-03 12:52 | Outpatient (OUT) | payer MEDICARE, OTHER, SELFPAY ==
--- NOTE | 2024-10-01 11:47 | VEINCLINIC_ITS ---
Vital Signs 10/03/24 13:45 BP 123/67 BP Location Right Brachial BP Position Sitting BP Cuff Size Adult BP Source Automatic Cuff Respiration 16 Pulse 71 Pulse Source Monitor Pulse Oximetry (%) 98 Oxygen Delivery Method Room Air Comment The patient's blood pressure is elevated. Varicose Veins Patient in today for microfoam chemical ablation right leg. Ton Martin MD personally performed the services described in this documentation, as scribed by Yaya Melgoza RN in my presence and it is both accurate and complete. Yaya Martin RN, am scribing for, and in the presence of, Dr. Ton Toledo and in the presence of the patient. calf: left aching, intermittent and tender 1 2-3 months Worsened in recent months: Yes walking elevating extremities Reports erythema, limb pain, leg edema and other (numbness/tingling) History of lower extremity trauma: Yes (injury to left lower leg 2-3 months ago) Superficial thrombophlebitis: No Family history of varicose veins: unknown Has patient had previous lower extremity venous surgery: No Patient has previously received the following treatment(s) for lower extremity varicose veins: Reports none Does patient have a history of : not applicable Does patient intend to have future pregnancies: not applicable Has patient had lower extremity venous scan with relux testing: Yes Support hose used: Yes (20 yrs ago) Problems walking or doing physical activity: Yes How does it affect you: Difficult doing daily activities, standing for long periods of time Do you walk much: No Do you stand much: No Medication compliance: fair Review of Systems ROS Narrative Ton Martin MD personally performed the services described in this documentation, as scribed by Yaya Melgoza RN in my presence and it is both accurate and complete. Yaya Martin RN, am scribing for, and in the presence of, Dr. Ton Toledo and in the presence of the patient. Status of ROS 10 or more systems reviewed and unremark able except as noted in history and below Cardiovascular Reports: edema Integumentary/Breast Reports: redness, skin pain, skin tenderness, skin swelling, non-healing lesion (mid medial left lower leg) and changes in skin color Neurological Reports: numbness in extremities and weakness in extremities Hematologic/Lymphatic Reports: easy bruising and easy bleeding PFSH PFS Medical History (Updated 09/11/24 @ 15:22 by Yaya Melgoza) Phlebitis of superficial vein of right lower extremity ?I80.01 - Phlebitis and thrombophlebitis of superficial vessels of right lower extremity (ICD-10) Phlebitis and thrombophlebitis of superficial vessels of left lower extremity ?I80.02 - Phlebitis and thrombophlebitis of superficial vessels of left lower extremity (ICD-10) 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 ?I83.813 - Varicose veins of bilateral lower extremities with pain (ICD-10) Heart disease ?I51.9 - Heart disease, unspecified (ICD-10) Carpal tunnel syndrome ?G56.00 - Carpal tunnel syndrome, unspecified upper limb (ICD-10) Surgical History (Updated 10/03/24 @ 13:46 by Yaya Melgoza) S/P sclerotherapy of varicose veins ?Z98.890 - Other specified postprocedural states (ICD-10) ?Z86.79 - Personal history of other diseases of the circulatory system (ICD- 10) Status post laser ablation of incompetent vein ?Z98.890 - Other specified postprocedural states (ICD-10) History of carpal tunnel surgery ?Z98.890 - Other specified postprocedural states (ICD-10) Family History (Updated 08/15/24 @ 13:25 by Yaya Melgoza) Father Family history of myocardial infarction Brother Family history of myocardial infarction Social History (Updated 08/15/24 @ 13:25 by Yaya Melgoza) Within the past year, how often did you have a drink containing alcohol: never Score interpretation: A score less than 4 is consistent with normal alcohol consumption. Smoking status: Never smoker Meds Home Medications and Allergies Home Medications ?Medication ?Instructions ?Recorded ?Confirmed ?Type apixaban 5 mg PO BID 08/15/24 08/15/24 History atorvastatin 20 mg tablet (Lipitor) 20 mg PO DAILY 08/15/24 08/15/24 History blood pressure medication 08/15/24 History flecainide 50 mg tablet 50 mg PO Q12H 08/15/24 08/15/24 History cephalexin 500 mg capsule 500 mg PO BID 09/23/24 09/23/24 History Allergies Allergy/AdvReac Type Severity Reaction Status Date / Time No Known Drug Allergies Allergy Verified 08/15/24 13:28 Exam Narrative Exam Narrative: Ton Martin MD personally performed the services described in this documentation, as scribed by Yaya Melgoza RN in my presence and it is both accurate and complete. IYaya RN, am scribing for, and in the presence of, Dr. Ton Toledo and in the presence of the patient. Constitutional Documenting provider has reviewed patient's vital signs: yes Common normals: oriented x3 Nutritional appearance: overweight Lymph Lymphatic: no lymphedema noted Cardio Peripheral pulses: posterior tibial pulses present and dorsalis pedis pulses present Extremity Common normals: normal capillary refill General: calf tenderness and edema Right lower extremity: lower leg Right lower leg: inspection and palpation Left lower extremity: lower leg (wound mid/medial lower leg ) Left lower leg: inspection and palpation Neuro Common normals: oriented x3 Assessment and Plan Assessment and Plan (1) 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: Plan f/u evaluation with physician along with right leg limited u/s Ton Martin MD personally performed the services described in this documentation, as scribed by Yaya Melgoza RN in my presence and it is both accurate and complete. IYaya RN, am scribing for, and in the presence of, Dr. Ton Toledo and in the presence of the patient. Procedures Procedure Instructions Procedures Right leg microfoam chemical ablation/Varithena: Risks and benefits of the procedure were discussed at length and informed written consent was obtained.? Time-out procedure was performed and the correct patient and procedure were confirmed.? Staff present during time-out: Yaya Melgoza RN and Ton Toledo MD.? Patient prepped and procedure performed in usual sterile fashion.? Patient was placed in Trendelenburg prior to Polidocanol/Varithena injections. Sclerosing Agent:?? 15cc 1% Polidocanol/Varithena Site Injected: Right lecc varithena administerd in to a 5mm varicose vein distal right GSV 5cc varithena administered in to a 4mm varicose vein right mid anterior lower leg 3cc varithena administered in to a 3mm varicose vein right anterior knee Number of Injections:? 3 The patient tolerated the procedure well without complication.? Hemostasis was obtained and thigh-high compression stocking was applied with foam pads.? Instructed patient to wear stocking for at least 96 hours and sleep with it and only remove for showering.? The patient was instructed to? wear stocking for 2 weeks.? Patient verbalizes understanding and states they will comply.? Patient was given post-procedure instructions. Patient was discharged in good condition.? Scheduled to undergo limited venous ultrasound and? exam on 10/10/2024. ITon MD personally performed the services described in this documentation, as scribed by Yaya Melgoza RN in my presence and it is both accurate and complete. I, Yaya Melgoza RN, am scribing for, and in the presence of, Dr. Ton Toledo and in the presence of the patient.
--- NOTE | 2024-10-01 11:51 | P.DS_ITS ---
Discharge Plan Discharge Disposition: Home, Self-Care Outpatient Diagnostics: [facility] Facility EST LMTD (Routine) Timeframe: 2 Weeks Facility: [facility] - Location: [facility] Center Ordered By: Ton Toledo [facility] EXT Venous RT LMTD (Routine) Timeframe: 2 Weeks Facility: [facility] - Location: Vein Center Ordered By: Ton Toledo Follow Up Appointments: 10/10/2024 Plan of Treatment: f/u evaluation with physician along with right leg limited u/s Patient Instructions: Polidocanol (By injection) (Eladio Arevalo) Print Language: Icelandic Discharge Date/Time: 10/03/24 13:44
--- NOTE | 2024-10-03 12:52 | VEIN_ITS ---
[address] [address] Patient Name: JOSE ROCHA MRN: [id number] date: 1940 Sex: M Assigned Patient Location: [facility] Current Patient Location: Accession/Order Number: [id number] Exam Date: 10/03/2024 12:53 Report Date: 10/03/2024 13:57 At the request of: LUPE PULIDO Procedure: VC INJ Foam Sclerosant WUS RANCH HELPER PROCEDURE: VC INJ Foam Sclerosant WUS RANCH HELPER COMPARISON: None. HISTORY: I83.813 - Varicose veins of bilateral lower extremities w... Pre-operative Diagnosis: CEAP class C6 venous insufficiency with pain, tenderness, edema and incompetent right saphenous and varicose vein(s), chronic venous insufficiency right leg secondary to venous incompetence Post-operative Diagnosis: CEAP class C6 venous insufficiency with pain, tenderness, edema and incompetent right saphenous and varicose vein(s), chronic venous insufficiency right leg secondary to venous incompetence Procedure Performed: 1. Ultrasound-guided microfoam chemical ablation with Varithenaregistered 2. Intraoperative ultrasound guidance Anesthesia: None Indications for Procedure: 83-year-old male who presents with a long history of lower extremity pain and swelling culminating in venous stasis ulcerations. The patient failed conservative medical therapy including medical compression stockings, exercise and analgesics. Prior procedures include endovenous laser ablation and Microfoam chemical ablation. Multiple incompetent varicosities of the right leg. Duplex scan showed reflux and enlarged diameters up to 5 mm. The patient underwent informed consent including management options where the complications of infection, bleeding, pain, and skin injury were discussed. Particular attention was spent discussing thrombus extension and deep vein thrombosis as well as the possibility of pulmonary embolus and treatment with oral or injectable blood thinners. Procedure: The patient walked to the procedure room. All applicable staff donned appropriate apparel. A procedure timeout was performed to confirm correct patient, correct extremity, correct procedure, and correct room set-up including presence of all applicable supplies, devices, and drugs. A duplex ultrasound, performed by myself confirmed the location and incompetence of branch saphenous varicosities and their course was marked on the skin together with the dilated tributaries. The extent of treatment of the vein and the associated varicosities was determined through ultrasound mapping. The skin was prepped and then punctured with a butterfly needle and advanced under ultrasound guidance. The Varithenaregistered canister was activated and the canister was primed and purged as required in the instructions for use. Varithenaregistered was drawn into a sterile syringe. The following injections were made: 7 cc injected into a 5 mm incompetent distal right great saphenous vein 5 cc injected into a 4 mm right mid anterior lower leg varicose vein 3 cc injected into a 3 mm varicose vein anterior right knee Varithenaregistered was slowly administered at 0.5-1.0 cc/second with close observation by ultrasound of its course in the vessels. Total volume utilized was: 15cc. Following administration of Varithenaregistered the leg was elevated and the patient was asked to repeatedly dorsiflex the ankle to limit flow of Varithenaregistered into perforating veins. Once appropriate spasm had been confirmed in the treated veins, the vascular catheter was removed from the leg and light pressure was applied over the puncture site for hemostasis. The common femoral and deep superficial veins were then evaluated for flow and compressibility prior to dressing placement. The lower extremity was kept elevated at 45 degrees above the horizontal and cording material was applied over the saphenous segments and tributaries to allow for eccentric compression over the target vessels including the targeted saphenous vein(s). A multilayer dressing was applied consisting of foam pads, coban and thigh-high 20-30 mm Hg compression elastic support hose were placed on the patient. The leg was lowered only after compression had been applied and the patient was immediately ambulatory. The patient ambulated 10 minutes under supervision and was without apparent concerns at time of release. Post-care instructions include advising patient to keep post-treatment bandages in place and dry for 48 hours, avoid extended periods of inactivity, avoid heavy exercise for one week, wear compression stockings on the treated leg continuously for two weeks, to walk daily for 10 minutes over the next month. The patient was instructed to take an anti-inflammatory medicine as needed and to follow up for color duplex scan of the Saphenous veins, the treated branch saphenous varicosities, the adjacent deep veins, and additional treatment within 7 days. PERSONNEL: Yaya Melgoza RN Electronically authenticated by: LUPE PULIDO Date: 10/03/2024 13:57
[2024-10-03 13:45] VITALS: BP 123/67; PULSE 71; O2SAT 98
== END 2024-10-03 13:44 | disposition home or self-care (01) ==
LOC: VC 12:52
PROVIDERS: Family Provider Family Medicine; PCP Radiology Diagnostic Radiology; Visit Provider Radiology Diagnostic Radiology
DX: I83.813 Varicose veins of bilateral lower extremities with pain (principal)
CPT/HCPCS: 36466

== ENCOUNTER 2024-10-04 13:19 | Outpatient (OUT) | payer MEDICARE, OTHER, SELFPAY ==
--- NOTE | 2024-10-04 13:21 | VEIN_ITS ---
Patient Name: JOSE ROCHA MR#: [id number] : 1940 Exam Date: 10/04/2024 Ordering Doctor: DR TON TOLEDO M.D. RADIOLOGY REPORT PROCEDURE: [facility] EST LMTD VEIN CENTER - OFFICE VISIT FOLLOW UP COMPARISON: [facility] EST TD, 09/23/2024. [facility] EST TD, 09/16/2024. PROGRESS NOTES: The patient reports moderate warmth and redness of the right medial knee and leg following micro foam chemical ablation. The patient has no pain. Physical exam demonstrates moderate erythema and warmth along the right medial knee and lower leg, similar in appearance to the post treatment appearance of the left leg after micro foam chemical ablation. Findings most likely represent thrombophlebitis. I did not put patient on antibiotics at this time but did recommend that he take anti-inflammatory medication to control the process. Review of the ultrasound performed the same day demonstrates occlusive thrombus extending throughout the treated right leg varicose veins. No deep vein thrombus. Subcutaneous edema. Patient is scheduled for follow-up visit on October 09, 2024. VEIN/[facility] EST TD IMPRESSION: 1. Successful ablation of treated right leg incompetent varicose veins 2. Moderate right leg thrombophlebitis. PLAN: Ibuprofen (2) 200 milligram tablets 2 times per day for the next 7 days Nurse notes, history and physical were reviewed and confirmed, see attached forms. The nurse was present throughout the physical exam and consultation Dictated by: Ton Toledo MD on 10/04/2024 at 14:05 Approved by: Ton Toledo MD on 10/04/2024 at 14:07
--- NOTE | 2024-10-04 13:21 | VEIN_ITS ---
Patient Name: JOSE ROCHA MR#: [id number] : 1940 Exam Date: 10/04/2024 Ordering Doctor: DR TON TOLEDO M.D. RADIOLOGY REPORT PROCEDURE: [facility] EXT VENOUS RT LMTD COMPARISON: [facility] EXT VENOUS RT LMTD, 09/16/2024. INDICATIONS: I80.01 - Phlebitis and thrombophlebitis of superficial veins right leg TECHNIQUE: Lower extremity cui scale and Duplex Doppler evaluation of the deep venous system from the inguinal ligament through the calf veins. FINDINGS: REGION: Right lower extremity. THROMBI: Negative for DVT. Chemically induced thrombus in multiple varicose veins and in GSV from medial knee to mid lower leg. COMPRESSIBILITY: Non-compressible segments corresponding to thrombus FLOW: Areas of no flow corresponding to thrombus OTHER: No significant varicose veins remain. CONCLUSION: Post ablation occlusion of the treated right leg varicose veins with no deep vein thrombus. No residual varicose veins. Dictated by: Ton Toledo MD on 10/04/2024 at 13:37 Approved by: Ton Toledo MD on 10/04/2024 at 13:37
[2024-10-04 13:52] VITALS: BMI 26.6
--- NOTE | 2024-10-04 13:52 | V.VEINS.HP ---
Vital Signs 10/04/24 13:52 Height 5 ft 10 in Weight 84 kg BMI 26.6 Varicose Veins Patient in today for follow up ultrasound of right lower extremity following treatment of Varithena/microfoam completed on 10/04/24. Ton Martin MD personally performed the services described in this documentation, as scribed by Ailyn Mancia RDMS in my presence and it is both accurate and complete. Ailyn Martin RDMS am scribing for, and in the presence of, Dr. Ton Toledo and in the presence of the patient. calf: left aching, intermittent and tender 1 2-3 months Worsened in recent months: Yes walking elevating extremities Reports erythema, limb pain, leg edema and other (numbness/tingling) History of lower extremity trauma: Yes (injury to left lower leg 2-3 months ago) Superficial thrombophlebitis: No Family history of varicose veins: unknown Has patient had previous lower extremity venous surgery: No Patient has previously received the following treatment(s) for lower extremity varicose veins: Reports none Does patient have a history of : not applicable Does patient intend to have future pregnancies: not applicable Has patient had lower extremity venous scan with relux testing: Yes Support hose used: Yes (20 yrs ago) Problems walking or doing physical activity: Yes How does it affect you: Difficult doing daily activities, standing for long periods of time Do you walk much: No Do you stand much: No Medication compliance: fair Review of Systems ROS Narrative Ton Martin MD personally performed the services described in this documentation, as scribed by Ailyn Mancia RDMS in my presence and it is both accurate and complete. Ailyn Martin RDMS, am scribing for, and in the presence of, Dr. Ton Toledo and in the presence of the patient. Status of ROS 10 or more systems reviewed and unremarkable except as noted in history and below Cardiovascular Reports: edema Integumentary/Breast Reports: redness, skin pain, skin tenderness, skin swelling, non-healing lesion (mid medial left lower leg) and changes in skin color Neurological Reports: numbness in extremities and weakness in extremities Hematologic/Lymphatic Reports: easy bruising and easy bleeding PFSH [facility] Medical History (Updated 09/11/24 @ 15:22 by Yaya Melgoza) Phlebitis of superficial vein of right lower extremity ?I80.01 - Phlebitis and thrombophlebitis of superficial vessels of right lower extremity (ICD-10) Phlebitis and thrombophlebitis of superficial vessels of left lower extremity ?I80.02 - Phlebitis and thrombophlebitis of superficial vessels of left lower extremity (ICD-10) 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 ?I83.813 - Varicose veins of bilateral lower extremities with pain (ICD-10) Heart disease ?I51.9 - Heart disease, unspecified (ICD-10) Carpal tunnel syndrome ?G56.00 - Carpal tunnel syndrome, unspecified upper limb (ICD-10) Surgical History (Updated 10/03/24 @ 13:46 by Yaya Melgoza) S/P sclerotherapy of varicose veins ?Z98.890 - Other specified postprocedural states (ICD-10) ?Z86.79 - Personal history of other diseases of the circulatory system (ICD-10) Status post laser ablation of incompetent vein ?Z98.890 - Other specified postprocedural states (ICD-10) History of carpal tunnel surgery ?Z98.890 - Other specified postprocedural states (ICD-10) Family History (Updated 08/15/24 @ 13:25 by Yaya Melgoza) Father Family history of myocardial infarction Brother Family history of myocardial infarction Social History (Updated 08/15/24 @ 13:25 by Yaya Melgoza) Within the past year, how often did you have a drink containing alcohol: never Score interpretation: A score less than 4 is consistent with normal alcohol consumption. Smoking status: Never smoker Meds Home Medications and Allergies Home Medications ?Medication ?Instructions ?Recorded ?Confirmed ?Type apixaban 5 mg PO BID 08/15/24 08/15/24 History atorvastatin 20 mg tablet (Lipitor) 20 mg PO DAILY 08/15/24 08/15/24 History blood pressure medication 08/15/24 History flecainide 50 mg tablet 50 mg PO Q12H 08/15/24 08/15/24 History cephalexin 500 mg capsule 500 mg PO BID 09/23/24 09/23/24 History ibuprofen BID 10/04/24 History Allergies Allergy/AdvReac Type Severity Reaction Status Date / Time No Known Drug Allergies Allergy Verified 08/15/24 13:28 Exam Narrative Exam Narrative: Patient presents with concern of redness of medial right knee. Ton Martin MD personally performed the services described in this documentation, as scribed by Ailyn Mancia RDMS in my presence and it is both accurate and complete. Ailyn Martin RDMS, am scribing for, and in the presence of, Dr. Ton Toledo and in the presence of the patient. Constitutional Documenting provider has reviewed patient's vital signs: yes Common normals: oriented x3 Nutritional appearance: overweight Lymph Lymphatic: no lymphedema noted Cardio Peripheral pulses: posterior tibial pulses present and dorsalis pedis pulses present Extremity Common normals: normal capillary refill General: calf tenderness and edema Right lower extremity: lower leg Right lower leg: inspection and palpation Left lower extremity: lower leg (wound mid/medial lower leg ) Left lower leg: inspection and palpation Neuro Common normals: oriented x3 Results Imaging Venous US: Radiologist's impression: Chemically induced thrombus in multiple varicose veins in right leg and in segments of GSV. Ton Martin MD personally performed the services described in this documentation, as scribed by Ailyn Mancia RDMS in my presence and it is both accurate and complete. Ailyn Martin RDMS am scribing for, and in the presence of, Dr. Ton Toledo and in the presence of the patient. Assessment and Plan Assessment and Plan (1) Phlebitis of superficial vein of right lower extremity: Plan Plan is for patient to take ibuprofen 400 mg BID for 7 days and to return for follow up ultrasound and consult with doctor on 10/09/24. Ton Martin MD personally performed the services described in this documentation, as scribed by Ailyn Mancia RDMS in my presence and it is both accurate and complete. Ailyn Martin RDMS, am scribing for, and in the presence of, Dr. Ton Toledo and in the presence of the patient.
--- NOTE | 2024-10-04 14:00 | W.VEIN ---
Discharge Plan Discharge Disposition: Home, Self-Care Outpatient Diagnostics: [facility] Facility EST LMTD (Routine) Timeframe: 2 Weeks Facility: [facility] - Location: Vein Center Ordered By: Ton Toledo VC EXT Venous RT LMTD (Routine) Timeframe: 2 Weeks Facility: [facility] - Location: Vein Center Ordered By: Ton Toledo Follow Up Appointments: 10/09/24 Plan of Treatment: Start taking Ibuprofen 400 mg BID for 7 days, follow up ultrasound and visit with doctor Print Language: Wallisian Discharge Date/Time: 10/04/24 14:02
== END 2024-10-04 14:02 | disposition home or self-care (01) ==
PROVIDERS: Family Provider Family Medicine; PCP Radiology Diagnostic Radiology; Visit Provider Radiology Diagnostic Radiology
DX: I80.01 Phlebitis and thrombophlebitis of superficial vessels of right lower extremity (principal)
CPT/HCPCS: 93971; G0463

== ENCOUNTER 2024-10-09 11:26 | Outpatient (OUT) | payer MEDICARE, OTHER, SELFPAY ==
--- NOTE | 2024-10-09 11:27 | VEIN_ITS ---
Patient Name: JOSE ROCHA MR#: [id number] : 1940 Exam Date: 10/09/2024 Ordering Doctor: DR TON TOLEDO M.D. RADIOLOGY REPORT PROCEDURE: [facility] - OFFICE VISIT FOLLOW UP COMPARISON: [facility] EST [facility], 10/04/2024. [facility] EST [facility], 09/23/2024. PROGRESS NOTES: The patient reports no significant problems following micro foam chemical ablation of right leg incompetent varicose veins. The patient has taken ibuprofen over the past week with good result. Physical exam demonstrates marked decrease in swelling and erythema of the right leg consistent with resolved thrombophlebitis. Multiple thrombosed varicose veins can be palpated. No residual varicose veins remain. There are moderate bilateral reticular and spider veins which the patient did not want treatment for this time Review of the ultrasound performed the same day demonstrates occlusive thrombus extending throughout the treated right leg varicose veins. No residual right leg varicose veins. No deep vein thrombus. At this time the patient's treatments are complete. The patient was asked to return in 1-2 years, sooner if he develops any symptoms. VEIN/[facility] EST [facility]MT[facility] IMPRESSION: 1. Successful ablation of treated incompetent right leg varicose veins 2. Persistent bilateral reticular and spider veins. PLAN: Treatment plan is complete at this time. Follow-up as needed or in 1-2 years Nurse notes, history and physical were reviewed and confirmed, see attached forms. The nurse was present throughout the physical exam and consultation Dictated by: Ton Toledo MD on 10/09/2024 at 12:13 Approved by: Ton Toledo MD on 10/09/2024 at 12:18
--- NOTE | 2024-10-09 11:27 | VEIN_ITS ---
Patient Name: JOSE ROCHA MR#: [id number] : 1940 Exam Date: 10/09/2024 Ordering Doctor: DR TON TOLEDO M.D. RADIOLOGY REPORT PROCEDURE: [facility]T [facility] RT [facility] COMPARISON: [facility]T [facility]EN[facility], 10/04/2024. [facility] EXT VENOUS RT L[facility], 09/16/2024. INDICATIONS: I80.01 - Phlebitis and thrombophlebitis of superficial veins right leg TECHNIQUE: Lower extremity cui scale and Duplex Doppler evaluation of the deep venous system from the inguinal ligament through the calf veins. FINDINGS: REGION: Right lower extremity. THROMBI: Negative for DVT. Chemically induced thrombus in multiple varicose veins in right leg. COMPRESSIBILITY: Non-compressible segments corresponding to thrombus FLOW: Areas of no flow corresponding to thrombus OTHER: No significant varicose veins remain. CONCLUSION: Post ablation occlusion of treated right leg varicose veins. No residual varicose veins or deep vein thrombus observed. Dictated by: Ton Toledo MD on 10/09/2024 at 11:45 Approved by: Ton Toledo MD on 10/09/2024 at 11:46
[2024-10-09 11:48] VITALS: BMI 26.6
--- NOTE | 2024-10-09 11:48 | V.VEINS.HP ---
Vital Signs 10/09/24 11:48 Height 5 ft 10 in Weight 84 kg BMI 26.6 Varicose Veins Patient in today for follow up ultrasound of right lower extremity following treatment of Varithena/microfoam completed on 10/04/24. Ton Martin MD personally performed the services described in this documentation, as scribed by Ailyn Mancia RDMS in my presence and it is both accurate and complete. Ailyn Martin RDMS am scribing for, and in the presence of, Dr. Ton Toledo and in the presence of the patient. calf: left aching, intermittent and tender 1 2-3 months Worsened in recent months: Yes walking elevating extremities Reports erythema, limb pain, leg edema and other (numbness/tingling) History of lower extremity trauma: Yes (injury to left lower leg 2-3 months ago) Superficial thrombophlebitis: No Family history of varicose veins: unknown Has patient had previous lower extremity venous surgery: No Patient has previously received the following treatment(s) for lower extremity varicose veins: Reports none Does patient have a history of : not applicable Does patient intend to have future pregnancies: not applicable Has patient had lower extremity venous scan with relux testing: Yes Support hose used: Yes (20 yrs ago) Problems walking or doing physical activity: Yes How does it affect you: Difficult doing daily activities, standing for long periods of time Do you walk much: No Do you stand much: No Medication compliance: fair Review of Systems ROS Narrative Ton Martin MD personally performed the services described in this documentation, as scribed by Ailyn Mancia RDMS in my presence and it is both accurate and complete. Ailyn Martin RDMS, am scribing for, and in the presence of, Dr. Ton Toledo and in the presence of the patient. Status of ROS 10 or more systems reviewed and unremarkable except as noted in history and below Cardiovascular Reports: edema Integumentary/Breast Reports: redness, skin pain, skin tenderness, skin swelling, non-healing lesion (mid medial left lower leg) and changes in skin color Neurological Reports: numbness in extremities and weakness in extremities Hematologic/Lymphatic Reports: easy bruising and easy bleeding PFSH [facility] Medical History (Updated 09/11/24 @ 15:22 by Yaya Melgoza) Phlebitis of superficial vein of right lower extremity ?I80.01 - Phlebitis and thrombophlebitis of superficial vessels of right lower extremity (ICD-10) Phlebitis and thrombophlebitis of superficial vessels of left lower extremity ?I80.02 - Phlebitis and thrombophlebitis of superficial vessels of left lower extremity (ICD-10) 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 ?I83.813 - Varicose veins of bilateral lower extremities with pain (ICD-10) Heart disease ?I51.9 - Heart disease, unspecified (ICD-10) Carpal tunnel syndrome ?G56.00 - Carpal tunnel syndrome, unspecified upper limb (ICD-10) Surgical History (Updated 10/03/24 @ 13:46 by Yaya Melgoza) S/P sclerotherapy of varicose veins ?Z98.890 - Other specified postprocedural states (ICD-10) ?Z86.79 - Personal history of other diseases of the circulatory system (ICD-10) Status post laser ablation of incompetent vein ?Z98.890 - Other specified postprocedural states (ICD-10) History of carpal tunnel surgery ?Z98.890 - Other specified postprocedural states (ICD-10) Family History (Updated 08/15/24 @ 13:25 by Yaya Melgoza) Father Family history of myocardial infarction Brother Family history of myocardial infarction Social History (Updated 08/15/24 @ 13:25 by Yaya Melgoza) Within the past year, how often did you have a drink containing alcohol: never Score interpretation: A score less than 4 is consistent with normal alcohol consumption. Smoking status: Never smoker Meds Home Medications and Allergies Home Medications ?Medication ?Instructions ?Recorded ?Confirmed ?Type apixaban 5 mg PO BID 08/15/24 08/15/24 History atorvastatin 20 mg tablet (Lipitor) 20 mg PO DAILY 08/15/24 08/15/24 History blood pressure medication 08/15/24 History flecainide 50 mg tablet 50 mg PO Q12H 08/15/24 08/15/24 History cephalexin 500 mg capsule 500 mg PO BID 09/23/24 09/23/24 History ibuprofen BID 10/04/24 History Allergies Allergy/AdvReac Type Severity Reaction Status Date / Time No Known Drug Allergies Allergy Verified 08/15/24 13:28 Exam Narrative Exam Narrative: Redness of medial right knee has subsided. Ton Martin MD personally performed the services described in this documentation, as scribed by Ailyn Mancia RDMS in my presence and it is both accurate and complete. Ailyn Martin RDMS am scribing for, and in the presence of, Dr. Ton Toledo and in the presence of the patient. Constitutional Documenting provider has reviewed patient's vital signs: yes Common normals: oriented x3 Nutritional appearance: overweight Lymph Lymphatic: no lymphedema noted Cardio Peripheral pulses: posterior tibial pulses present and dorsalis pedis pulses present Extremity Common normals: normal capillary refill General: calf tenderness and edema Right lower extremity: lower leg Right lower leg: inspection and palpation Left lower extremity: lower leg (wound mid/medial lower leg ) Left lower leg: inspection and palpation Neuro Common normals: oriented x3 Results Imaging Venous US: Radiologist's impression: Chemically induced thrombus in multiple varicose veins in right leg. Ton Martin MD personally performed the services described in this documentation, as scribed by Ailyn Mancia RDMS in my presence and it is both accurate and complete. Ailyn Martin RDMS am scribing for, and in the presence of, Dr. Ton Toledo and in the presence of the patient. Assessment and Plan Assessment and Plan (1) Phlebitis of superficial vein of right lower extremity: Plan Patient is finished with treatment at this time. Follow up in 1-2 years or as needed. Ton Martin MD personally performed the services described in this documentation, as scribed by Ailyn Mancia RDMS in my presence and it is both accurate and complete. Ailyn Martin RDMS am scribing for, and in the presence of, Dr. Ton Toledo and in the presence of the patient.
--- NOTE | 2024-10-09 12:00 | P.DS_ITS ---
Discharge Plan Discharge Disposition: Home, Self-Care Discharge Medications: No Action apixaban [Eliquis] 5 mg PO BID atorvastatin [Lipitor] 20 mg tablet 20 mg PO DAILY flecainide 50 mg tablet 50 mg PO Q12H blood pressure medication ibuprofen 400 mg capsule BID cephalexin 500 mg capsule 500 mg PO BID Patient Comments: 14 days Follow Up Appointments: 1-2 years Plan of Treatment: Finished with treatment at this time. Print Language: Portuguese Discharge Date/Time: 10/09/24 12:00
== END 2024-10-09 12:00 | disposition home or self-care (01) ==
LOC: VC 11:26
PROVIDERS: Family Provider Family Medicine; PCP Radiology Diagnostic Radiology; Visit Provider Radiology Diagnostic Radiology
DX: I80.01 Phlebitis and thrombophlebitis of superficial vessels of right lower extremity (principal)
CPT/HCPCS: 93971; G0463